=== PATIENT | female | born 1955 | race Hispanic/Latino ===

== ENCOUNTER 2018-04-23 16:23 | Emergency (ER) | payer OTHER ==
--- OUTSIDE RECORDS SUMMARY | 2018-04-23 16:25 | XMS REPORT ---
:1955 Author Organization eClinicalWorks Care Team Providers Name Role Phone Radha Kamala Provider Role Unavailable Allergies, Adverse Reactions, Alerts Substance Reaction Event Type N.K.D.A. Info Not Available Non Drug Allergy Problems Problem Type Condition Code Onset Dates Condition Status Problem Type 2 diabetes E11.9 Active Problem Shoulder pain M25.519 Active Problem Hip pain M25.559 Active Problem Chronic pain syndrome G89.4 Active Problem Skin lesion L98.9 Active Problem Polyarthralgia M25.50 Active Problem Pain in left knee M25.562 Active Problem Leg pain M79.606 Active Problem Elevated BP without diagnosis of R03.0 Active hypertension Problem Uncontrolled type 2 diabetes E11.65 Active mellitus without complication, without long-term current use of insulin Assessment Skin lesion L98.9 Active Assessment Elevated BP without diagnosis of R03.0 Active hypertension Assessment Chronic pain syndrome G89.4 Active Assessment Uncontrolled type 2 diabetes E11.65 Active mellitus without complication, without long-term current use of insulin Assessment Polyarthralgia M25.50 Active Problem Low back pain M54.5 Active Medications Medication Code Code Instructions Start End Status Dosage System Date Date Mobic [facility] 25101303008 7.5 MG Orally Active 1 tablet Once a day as needed BL Blood Glucose NDC 0 subcutaneous April 09, Active As directed; Monitor Kit Test BS once 2017 DISPENSE BG daily MONITOR FORMULARY TO INSURANCE Gabapentin ND 05115376449 100 MG Orally Active 1 capsule Three times a day Glimepiride ND 96879456611 4 MG Orally Active 1 tablet Twice a day Mupirocin ND 20289189533 2 % Externally April 09March Active 1 application Two times a 2017, to affected day 2018 area Lancets ND 97982185649 - subcutaneous April 09, Active as directed; Test BS once 2017 dispense daily lancets formulary to insurance blood glucose test NDC 0 topically April 09Jul Active as directed; strip Test BS once 2018 01, DISPENSE daily 2019 TESTING STRIPS FORMULARY TO INSURANCE Cyclobenzaprine ND 22449865230 5 MG Orally Active 1 tablet as HCl Two times a needed day as needed Indomethacin [facility] 62866932135 50 MG Orally April 09Jul Active 1 capsule as Twice a day 2018 07, needed for 2017 pain; take with food or milk Results No Known Results Summary Purpose eClinicalWorks Submission
--- OUTSIDE RECORDS SUMMARY | 2018-04-23 16:25 | XMS REPORT ---
:1955 Author Organization eClinicalWorks Care Team Providers Name Role Phone Kamala Garcia Provider Role Unavailable Allergies No Known Allergies Problems Problem Type Condition Code Onset Dates Condition Status Problem Type 2 diabetes E11.9 Active Problem Shoulder pain M25.519 Active Problem Hip pain M25.559 Active Problem Low back pain M54.5 Active Problem Chronic pain syndrome G89.4 Active Problem Skin lesion L98.9 Active Problem Polyarthralgia M25.50 Active Problem Pain in left knee M25.562 Active Problem Leg pain M79.606 Active Problem Elevated BP without diagnosis of R03.0 Active hypertension Problem Uncontrolled type 2 diabetes E11.65 Active mellitus without complication, without long-term current use of insulin Medications No Known Medications Results No Known Results Summary Purpose eClinicalWorks Submission
[2018-04-23] MEDS ORDERED: NA CHLORIDE 0.9% 1,000 ML ONE (17:17)
[2018-04-23] MEDS ORDERED: ONDANSETRON 4 MG/2 ML VIAL ONE (17:35)
[2018-04-23] MEDS ORDERED: MORPHINE 4 MG/ML SYR ONE (17:35)
[2018-04-23 17:38] LABS: Absolute Lymphocytes (CBC) 2.6 K/uL (0.7-4.9); Absolute Monocytes 0.4 K/uL (0.1-1.3); Absolute Neutrophil 4.2 K/uL (1.8-8.0); Basophils % 0.4 % (0-1.3); Eosinophils % 1.3 % (0-4.4); Hematocrit 36.6 % (36.0-45.0); Lymphocytes % 35.5 % (15.3-44.8); MCH 29.7 pg (27.0-35.0); MCV 84.4 fL (80-100); MPV 9.5 fL (7.6-11.3); RBC Red Blood Cell Count 4.34 M/uL (3.86-4.86)
[2018-04-23 17:40] LABS: Glucose Level 277 mg/dL (65-120)
[2018-04-23 17:41] LABS: BUN Blood Urea Nitrogen 17 mg/dL (6-20)
[2018-04-23 17:42] LABS: Urine Blood TRACE (NEG); Urine Glucose 2+ (NEG); Urine Protein NEGATIVE (NEG)
[2018-04-23 17:43] LABS: Bicarbonate 25 mEq/L (21-31); Potassium 4.4 mEq/L (3.6-5.0); Sodium Level 134 mEq/L (135-145)
[2018-04-23 18:04] LABS: Urine Bacteria <20 /HPF (<20)
[2018-04-23 18:05] LABS: Urine Culture Reflex Order NOT NEEDED
--- NOTE | 2018-04-23 18:41 | RAD REPORT ---
EXAM DESCRIPTION: CT - Head Brain Wo Cont - 04/23/2018 6:30 pm CLINICAL HISTORY: Headache COMPARISON: None. TECHNIQUE: Computed axial tomography of the head was obtained. IV contrast was not requested. All CT scans are performed using dose optimization technique as appropriate and may include automated exposure control or mA/KV adjustment according to patient size. FINDINGS: An intracranial bleed is not seen . The ventricles are normal in caliber. No extra-axial fluid collection is noted. Mild chronic opacification ethmoid sinus is seen. Fluid within the sinuses/mastoids is not noted IMPRESSION: No acute intracranial abnormality is seen. If patient's symptoms persist MRI of the bra in would be recommended.
--- NOTE | 2018-04-23 20:16 | ER ---
Nurse's Notes [facility] Name: Myriam Bryant Age: 62 yrs Sex: Female : 1955 Arrival Date: 04/23/2018 Time: 16:26 Bed 26 Private MD: None, None Diagnosis: Headache;Elevated blood-pressure reading, without diagnosis of hypertension Presentation: 04/23 16:32 Presenting complaint: Patient states: Headache, bilateral shoulder pain, back pain for aj 3 months. Headache increased in severity when patient woke up from nap just [employer]ACHT [employer]TAIN. Transition of care: patient was not received from another setting of care. Onset of symptoms was January 2018. Care prior to arrival: None. 16:32 Method Of Arrival: Ambulatory aj 16:32 Acuity: VALDEMAR 3 aj 20:32 Risk Assessment: Do you want to hurt yourself or someone else? Patient reports no mb3 desire to harm self or others. Initial Sepsis Screen: Does the patient meet any 2 criteria? No. Patient's initial sepsis screen is negative. Does the patient have a suspected source of infection? No. Patient's initial sepsis screen is negative. Triage Assessment: 16:35 Headache History: The patient has had previous headaches and this one is more severe aj than previous episodes. General: Appears in no apparent distress. uncomfortable, Behavior is cooperative, drowsy. Pain: Complains of pain in face, scalp, left scapular area and right scapular area Pain currently is 10 out of 10 on a pain scale. Also complains of no other associated symptoms. Neuro: Level of Consciousness is awake, alert, obeys commands, Oriented to person, place, time, situation, Appropriate for age. Neuro: Reports headache. Respiratory: Airway is patent Respiratory effort is even, unlabored, Respiratory pattern is regular, symmetrical. Derm: Skin is intact, is healthy with good turgor, Skin is pink, warm \T\ dry. normal. 20:33 Pain: Pain began 2-3 days ago. mb3 Historical: - Allergies: 16:35 No Known Allergies; aj - Home Meds: 16:35 glimepiride 4 mg Oral tab 1 tab once daily [Active]; indomethacin 50 mg Oral cap 1 cap aj 2 times per day [Active]; - PMHx: 16:35 Diabetes - NIDDM; Hyperlipidemia; Arthritis; aj - Immunization history:: Adult Immunizations up to date. - Social history:: Smoking status: Patient/guardian denies using tobacco. - Ebola Screening: : Patient denies travel to an Ebola-affected area in the 21 days before illness onset No symptoms or risks identified at this time. Screenin:45 Abuse screen: Denies threats or abuse. Nutritional screening: No deficits noted. mb3 Tuberculosis screening: No symptoms or risk factors identified. Fall Risk No fall in past 12 months (0 pts). Secondary diagnosis (15 points) impaired mobility, IV access (20 points). Ambulatory Aid- Furniture (30 pts.). Gait- Impaired (20 pts.). Mental Status- Oriented to own ability (0 pts). Total Freitas Fall Scale indicates High Risk Score (45 or more points). Assessment: 17:05 General: Appears distressed, uncomfortable, Behavior is cooperative, anxious, crying. mb3 Pain: Complains of pain in back of neck, left shoulder and right shoulder Pain radiates to top of head, forehead and scalp Pain currently is 10 out of 10 on a pain scale. 17:05 Neuro: Level of Consciousness is awake, alert, obeys commands, Oriented to person, mb3 place, time, situation, Rn Informatics are equal bilaterally Moves all extremities. pain upon movement of shoulders, hips, wrist, and knees, has been told has arthritis. Cardiovascular: No deficits noted. Denies chest pain, Heart tones S1 S2 present Capillary refill < 3 seconds Patient's skin is warm and dry. Respiratory: Airway is patent Respiratory effort is even, unlabored, Respiratory pattern is regular, symmetrical, Breath sounds are clear bilaterally. GI: No deficits noted. No signs and/or symptoms were reported involving the gastrointestinal system. Abdomen is flat, Bowel sounds present X 4 quads. : Urine is blood tinged. EENT: No signs and/or symptoms were reported regarding the EENT system. Musculoskeletal: Reports pain in joints all over. Vital Signs: 16:36 BP 161 / 84; Pulse 98; Resp 20; Temp 98.6; Pulse Ox 99% on R/A; Weight 49.9 kg; Height aj 5 ft. 0 in. (152.40 cm); Pain 10/10; 17:40 BP 157 / 70; Pulse 82; Resp 15; Temp 98.8(O); Pulse Ox 96% on R/A; mh5 20:25 BP 140 / 66; Pulse 75; Resp 16; Pulse Ox 96% on R/A; Pain 2/10; mb3 16:36 Body Mass Index 21.48 (49.90 kg, 152.40 cm) aj ED Course: 16:26 Patient arrived in ED. mr 16:26 None, None is Private Physician. mr 16:34 Triage completed. aj 16:36 Arm band placed on left wrist. Patient placed in waiting room, Patient notified of wait aj time. 16:39 Suhail Villegas, RN is Primary Nurse. mb3 16:40 Patient has correct armband on for positive identification. mobility architect manager on. Pulse mb3 ox on. NIBP on. 16:45 Howard Bae PA is PHCP. cp 16:46 Dereck Vyas MD is Attending Physician. cp 16:50 Inserted saline lock: 20 gauge in right forearm, using aseptic technique. Blood mb3 collected. 17:32 Urine collected: clean catch specimen, cloudy. mh5 17:33 Urine Microscopic Only Sent. mh5 17:39 BMP Sent. mh5 17:39 CBC with Diff Sent. mh5 17:39 Urine Microscopic Only Sent. mh5 18:[address] via stretcher. nj 18:29 CT completed. Patient tolerated procedure well. Patient moved back from CT. nj 18:30 CT Head Brain wo Cont In Process Unspecified. EDMS 20:32 No provider procedures requiring assistance completed. IV discontinued, intact, mb3 bleeding controlled, No redness/swelling at site. Pressure dressing applied. Administered Medications: 17:22 Drug: NS 0.9% 1000 ml Route: IV; Rate: 1 bolus; Site: right antecubital; mb3 20:34 Follow up: Response: No adverse reaction; IV Status: Completed infusion; IV Intake: mb3 1000ml 17:30 Drug: morphine 2 mg Route: IVP; Site: left antecubital; mb3 20:34 Follow up: Response: No adverse reaction mb3 17:30 Drug: Zofran 4 mg Route: IVP; Site: right antecubital; mb3 20:34 Follow up: Response: No adverse reaction mb3 Point of Care Testing: Blood Glucose: 17:38 Blood Glucose: 267 mg/dL; mh5 Ranges: Intake: 20:34 IV: 1000ml; Total: 1000ml. mb3 Outcome: 20:15 Discharge ordered by . cp 20:32 Discharged to home via wheelchair, with family. mb3 20:32 Condition: stable 20:32 Discharge instructions given to patient, family, Instructed on discharge instructions, follow up and referral plans. medication usage, Demonstrated understanding of instructions, follow-up care, medications, Prescriptions given X 2. 20:35 Patient left the ED. mb3 Signatures: Dispatcher [employer] EDVeronika Velazquez RN RN aj Rivera, Maria mr Page, Corey, PA PA cp Jordan, Nathan nj Martinez, Maria [facility] Suhail Villegas RN RN mb3 Corrections: (The following items were deleted from the chart) 16:36 16:32 Presenting complaint: Patient states: Headache, bilateral shoulder pain, back aj pain for 3 months steven
--- NOTE | 2018-04-23 20:16 | EDPHYS ---
Physician Documentation [facility] Name: Myriam Bryant Age: 62 yrs Sex: Female : 1955 Arrival Date: 04/23/2018 Time: 16:26 Bed 26 Private MD: None, None ED Physician Dereck Vyas HPI: 04/23 17:00 This 62 yrs old Female presents to ER via Ambulatory with complaints of cp Headache. 17:00 The patient complains of pain to the top of head and forehead. The patient describes cp the headache as constant. 17:00 Onset: The symptoms/episode began/occurred suddenly, today, started after awakening cp from nap. Associated signs and symptoms: Pertinent positives: upper back and neck pain, multiple joint pain, Pertinent negatives: altered mental status, fever, paresthesias, vision changes. Severity of symptoms: in the emergency department the pain is actually worse, moderately. Headache History: The patient has had previous headaches and this one is more severe than previous episodes. Historical: - Allergies: 16:35 No Known Allergies; aj - Home Meds: 16:35 glimepiride 4 mg Oral tab 1 tab once daily [Active]; indomethacin 50 mg Oral cap 1 cap aj 2 times per day [Active]; - PMHx: 16:35 Diabetes - NIDDM; Hyperlipidemia; Arthritis; aj - Immunization history:: Adult Immunizations up to date. - Social history:: Smoking status: Patient/guardian denies using tobacco. - Ebola Screening: : Patient denies travel to an Ebola-affected area in the 21 days before illness onset No symptoms or risks identified at this time. ROS: 17:07 Constitutional: Negative for body aches, chills, fever, poor PO intake. cp 17:07 Eyes: Negative for injury, pain, redness, and discharge. cp 17:07 ENT: Negative for drainage from ear(s), ear pain, rhinorrhea, sinus congestion, sore throat, difficulty swallowing, difficulty handling secretions. 17:07 Neck: Positive for pain at rest, Negative for injury or acute deformity, bony tenderness. 17:07 Cardiovascular: Negative for chest pain, edema, palpitations. 17:07 Respiratory: Negative for cough, shortness of breath, wheezing. 17:07 Abdomen/GI: Negative for abdominal pain, vomiting, diarrhea, constipation, black/tarry stool, rectal bleeding. 17:07 : Negative for urinary symptoms. 17:07 MS/extremity: Positive for bilateral shoulders, upper back pain, Negative for injury or acute deformity. 17:07 Skin: Negative for cellulitis, rash. 17:07 Neuro: Positive for headache, Negative for altered mental status, dizziness, syncope, near syncope. 17:07 All other systems are negative. Exam: 17:13 Constitutional: The patient appears in no acute distress, alert, awake, cp non-diaphoretic, non-toxic, well developed, well nourished, anxious, tearful 17:13 Head/Face: Normocephalic, atraumatic. Eyes: Pupils equal round and reactive to light, cp extra-ocular motions intact. Lids and lashes normal. Conjunctiva and sclera are non-icteric and not injected. Cornea within normal limits. Periorbital areas with no swelling, redness, or edema. ENT: Nares patent. No nasal discharge, no septal abnormalities noted. Tympanic membranes are normal and external auditory canals are clear. Oropharynx with no redness, swelling, or masses, exudates, or evidence of obstruction, uvula midline. Mucous membranes moist. 17:13 Neck: C-spine: vertebral tenderness, is not appreciated, crepitus, is not appreciated, ROM/movement: limited range of motion, is not appreciated, Meningeal signs: are not present, nuchal rigidity, is not appreciated. 17:13 Chest/axilla: Inspection: normal, Palpation: is normal, no crepitus, no tenderness. 17:13 Cardiovascular: Rate: normal, Rhythm: regular, Heart sounds: murmur, not appreciated, rub, not appreciated, gallop, not appreciated, Edema: is not appreciated, JVD: is not appreciated. 17:13 Respiratory: the patient does not display signs of respiratory distress, Respirations: normal, no use of accessory muscles, no retractions, no splinting, no tachypnea, labored breathing, is not present, Breath sounds: are clear throughout, no decreased breath sounds, no stridor, no wheezing. 17:13 Abdomen/GI: Inspection: abdomen appears normal, Bowel sounds: active, all quadrants, Palpation: abdomen is soft and non-tender, in all quadrants, rebound tenderness, is not appreciated, voluntary guarding, is not appreciated, involuntary guarding, is not appreciated. 17:13 Back: ROM is normal, CVA tenderness, is absent, vertebral tenderness, is not appreciated. 17:13 Musculoskeletal/extremity: Exam is negative for decreased range of motion, edema, injury. 17:13 Skin: cellulitis, is not appreciated, no rash present. 17:13 Neuro: Orientation: to person, place \T\ time. Mentation: lucid, able to follow commands, Cerebellar function: Romberg testing is negative, normal finger to nose testing, heel to swann testing is normal, Motor: moves all fours, strength is normal, Sensation: no obvious gross deficits. Vital Signs: 16:36 BP 161 / 84; Pulse 98; Resp 20; Temp 98.6; Pulse Ox 99% on R/A; Weight 49.9 kg; Height aj 5 ft. 0 in. (152.40 cm); Pain 10/10; 17:40 BP 157 / 70; Pulse 82; Resp 15; Temp 98.8(O); Pulse Ox 96% on R/A; mh5 20:25 BP 140 / 66; Pulse 75; Resp 16; Pulse Ox 96% on R/A; Pain 2/10; mb3 16:36 Body Mass Index 21.48 (49.90 kg, 152.40 cm) aj MDM: 16:46 Patient medically screened. cp 19:20 Refusal of service: The patient/guardian displays adequate decision making capability cp and despite a detailed discussion of alternatives, benefits, risks, and consequences refuses: Lumbar Puncture procedure. 20:15 Data reviewed: vital signs, nurses notes, lab test result(s), radiologic studies, CT cp scan, and as a result, I will discharge patient. 04/23 16:47 Order name: Urine Microscopic Only; Complete Time: 18:45 04/23 20:13 Interpretation: Normal except: URBC 5-10. 04/23 17:05 Order name: CBC with Diff; Complete Time: 18:45 04/23 17:05 Order name: CT Head Brain wo Cont; Complete Time: 18:45 04/23 18:45 Interpretation: Report reviewed. 04/23 17:05 Order name: BMP; Complete Time: 18:45 04/23 20:14 Interpretation: Normal except: GLUC 277; NA 134; CL 99. 04/23 17:41 Order name: Urine Dipstick--Ancillary (enter results) bd 04/23 17:41 Order name: Urine Dipstick-Ancillary; Complete Time: 18:45 EDMS 04/23 20:13 Interpretation: Normal except: UGLUC 2+; UBLD TRACE. cp 04/23 16:46 Order name: Accucheck Blood Glucose; Complete Time: 17:39 cp 04/23 16:47 Order name: Urine Dipstick-Ancillary (obtain specimen); Complete Time: 17:33 cp Administered Medications: 17:22 Drug: NS 0.9% 1000 ml Route: IV; Rate: 1 bolus; Site: right antecubital; mb3 20:34 Follow up: Response: No adverse reaction; IV Status: Completed infusion; IV Intake: mb3 1000ml 17:30 Drug: morphine 2 mg Route: IVP; Site: left antecubital; mb3 20:34 Follow up: Response: No adverse reaction mb3 17:30 Drug: Zofran 4 mg Route: IVP; Site: right antecubital; mb3 20:34 Follow up: Response: No adverse reaction mb3 Point of Care Testing: Blood Glucose: 17:38 Blood Glucose: 267 mg/dL; mh5 Ranges: Critical Glucose Levels:Adult <50 mg/dl or >400 mg/dl <40 mg/dl or >180 mg/dl Disposition: 04/24 10:44 Co-signature as Attending Physician, Dereck Vyas MD I agree with the assessment and kdr plan of care. Disposition: 04/23/18 20:15 Discharged to Home. Impression: Headache, Elevated blood-pressure reading, without diagnosis of hypertension. - Condition is Stable. - Discharge Instructions: General Headache Without Cause, How to Take Your Blood Pressure, Odvd-jb-Iins. - Prescriptions for Fiorinal 50- 325-40 mg Oral Capsule - take 1 capsule by ORAL route every 4 hours As needed - not to exceed 6 capsules per day; 20 capsule. Zofran 4 mg Oral Tablet - take 1 tablet by ORAL route every 12 hours As needed; 20 tablet. - Medication Reconciliation Form, Thank You Letter, Antibiotic Education, Prescription Opioid Use form. - Follow up: Private Physician; When: 1 - 2 days; Reason: Recheck today's complaints. - Problem is new. - Symptoms have improved. Signatures: Dispatcher [employer] EDVeronika Velazquez, RN RN Dereck Rai MD MD kdr Page, Corey, PA PA Suhail Fish RN RN mb3 Corrections: (The following items were deleted from the chart) 04/23 20:14 20:14 Normal except: GLUC 277; NA 134. cp cp 20:35 20:15 04/23/2018 20:15 Discharged to Home. Impression: Headache; Elevated mb3 blood-pressure reading, without diagnosis of hypertension. Condition is Stable. Forms are Medication Reconciliation Form, Thank You Letter, Antibiotic Education, Prescription Opioid Use. Follow up: Private Physician; When: 1 - 2 days; Reason: Recheck today's complaints. Problem is new. Symptoms have improved. cp
[2018-04-23 20:40] VITALS: TEMP 98.8; O2SAT 96
[2018-04-23 20:41] VITALS: BP 140/66
== END 2018-04-23 20:35 | disposition home or self-care (01) ==
LOC: ER 16:23
DX: I10 Essential (primary) hypertension (principal); E11.9 Type 2 diabetes mellitus without complications; E78.5 Hyperlipidemia, unspecified
CPT/HCPCS: 36415; 70450; 80048; 81003; 81015; 82962; 85025; 99285; J2405; J7030

== ENCOUNTER 2019-04-24 18:04 | Emergency (ER) | payer OTHER, SELFPAY ==
--- OUTSIDE RECORDS SUMMARY | 2019-04-24 18:07 | XMS REPORT ---
:1955 [facility] Address [address] [place] [address] [place] [id number] Care Team Providers Name Role Phone Unavailable Unavailable Unavailable Problems This patient has no known problems. Allergies, Adverse Reactions, Alerts This patient has no known allergies or adverse reactions. Medications This patient has no known medications.
--- OUTSIDE RECORDS SUMMARY | 2019-04-24 18:07 | XMS REPORT ---
:1955 Author Organization eClinicalWorks Care Team Providers Name Role Phone Kamala Garcia Provider Role Unavailable Allergies, Adverse Reactions, Alerts [...] without long-term current use of insulin Assessment Elevated BP without diagnosis of R03.0 Active hypertension Assessment Uncontrolled type 2 diabetes E11.65 Active mellitus without complication, without long-term current use of insulin Assessment Counseling and coordination of care Z71.89 Active Assessment Polyarthralgia M25.50 Active Problem Low back pain M54.5 Active Medications Medication Code Code Instructions Start End Status Dosage System Date Date Mobic [facility] 15779129536 7.5 MG Orally Active 1 tablet Once a day as needed Metformin HCl ND 16444950052 500 MG Orally Jul 09, Active 1 tablet Twice daily 2017 with a meal (for diabetes) Gabapentin ND 40967054736 100 MG Orally Active 1 capsule Three times a day Cyclobenzaprine ND 06630606132 5 MG Orally Two Active 1 tablet as HCl times a day as needed needed BL Blood Glucose ND 0 subcutaneous April 09, Active As Monitor Kit Test BS once 2017 directed; daily DISPENSE BG MONITOR FORMULARY TO INSURANCE blood glucose test NDC 0 topically Test April 09Jul Active as strip BS once daily 2018 01, directed; 2019 DISPENSE TESTING STRIPS FORMULARY TO INSURANCE Lancets [facility] 11042336357 - subcutaneous April 09, Active as Test BS once 2017 directed; daily dispense lancets formulary to insurance Glimepiride ND 99653327350 4 MG Orally Active 1 tablet Twice a day Results No Known Results Summary Purpose eClinicalWorks Submission
--- OUTSIDE RECORDS SUMMARY | 2019-04-24 18:07 | XMS REPORT ---
:1955 Author Organization eClinicalWorks Care Team Providers Name Role Phone Kamala Garcia Provider Role Unavailable Allergies No Known Allergies Problems Problem Type Condition Code Onset Dates Condition Status Problem Polyarthralgia M25.50 Active Problem Uncontrolled type 2 diabetes E11.65 Active mellitus without complication, without long-term current use of insulin Problem Elevated BP without diagnosis of R03.0 Active hypertension Problem Vitamin D deficiency E55.9 Active Problem Abnormal liver function K76.89 Active Problem Dizziness R42 Active Problem Nausea and vomiting, intractability R11.2 Active of vomiting not specified, unspecified vomiting type Problem Abdominal pain, unspecified R10.9 Active abdominal location Problem Anemia, unspecified type D64.9 Active Problem Nonintractable headache, R51 Active unspecified chronicity pattern, unspecified headache type Problem Low back pain M54.5 Active Problem Type 2 diabetes E11.9 Active Problem Leg pain M79.606 Active Problem Pain in left knee M25.562 Active Problem Hip pain M25.559 Active Problem Skin lesion L98.9 Active Problem Shoulder pain M25.519 Active Problem Chronic pain syndrome G89.4 Active Medications Medication Code Code Instructions Start End Status Dosage System Date Date Pioglitazone HCl [facility] 95029745906 15 MG Orally Aug 07, Active 1 tablet Once a day 2017 Results No Known Results Summary Purpose eClinicalWorks Submission
--- OUTSIDE RECORDS SUMMARY | 2019-04-24 18:07 | XMS REPORT ---
[...] Status Dosage System Date Date Pioglitazone HCl [facility] 16348985020 15 MG Orally Aug 07, Active 1 tablet Once a day 2017 Results No Known Results Summary Purpose eClinicalWorks Submission
--- OUTSIDE RECORDS SUMMARY | 2019-04-24 18:07 | XMS REPORT ---
[...] End Status Dosage System Date Date Mobic [facility] 14791573186 7.5 MG Orally Active 1 tablet Once a day as needed BL Blood Glucose NDC 0 subcutaneous April 09, Active As directed; Monitor Kit Test BS once 2017 DISPENSE BG daily MONITOR FORMULARY TO INSURANCE Gabapentin ND 97450562962 100 MG Orally Active 1 capsule Three times a day Glimepiride ND 70113086025 4 MG Orally Active 1 tablet Twice a day Mupirocin ND 99708934194 2 % Externally April 09March Active 1 application Two times a 2017, to affected day 2018 area Lancets ND 01340703604 - subcutaneous April 09, Active as directed; Test BS once 2017 dispense daily lancets formulary to insurance blood glucose test NDC 0 topically April 09Jul Active as directed; strip Test BS once 2018 01, DISPENSE daily 2019 TESTING STRIPS FORMULARY TO INSURANCE Cyclobenzaprine ND 31662935333 5 MG Orally Active 1 tablet as HCl Two times a needed day as needed Indomethacin [facility] 69116382423 50 MG Orally April 09Jul Active 1 capsule as Twice a day 2018 07, needed for 2017 pain; take with food or milk Results No Known Results Summary Purpose eClinicalWorks Submission
--- OUTSIDE RECORDS SUMMARY | 2019-04-24 18:07 | XMS REPORT ---
:1955 Author Organization eClinicalWorks Care Team Providers Name Role Phone Kamala Garcia Provider Role Unavailable Allergies, Adverse Reactions, Alerts Substance Reaction Event Type N.K.D.A. Info Not Available Non Drug Allergy Problems Problem Type Condition Code Onset Dates Condition Status Assessment Vitamin D deficiency E55.9 Active Assessment Anemia, unspecified type D64.9 Active Assessment Abnormal liver function K76.89 Active Assessment Uncontrolled type 2 diabetes E11.65 Active mellitus without complication, without long-term current use of insulin Problem Elevated BP without diagnosis of R03.0 Active hypertension Assessment Bloating R14.0 Active Problem Uncontrolled type 2 diabetes E11.65 Active mellitus without complication, without long-term current use of insulin Assessment Gastroesophageal reflux disease, K21.9 Active esophagitis presence not specified Problem Abdominal pain, unspecified R10.9 Active abdominal location Problem Abnormal liver function K76.89 Active Problem Nausea and vomiting, intractability R11.2 Active of vomiting not specified, unspecified vomiting type Problem Bloating R14.0 Active Problem Gastroesophageal reflux disease, K21.9 Active esophagitis presence not specified Problem Low back pain M54.5 Active Problem Essential hypertension I10 Active Assessment Essential hypertension I10 Active Problem Dizziness R42 Active Problem Vitamin D deficiency E55.9 Active Problem Anemia, unspecified type D64.9 Active Problem Nonintractable headache, R51 Active unspecified chronicity pattern, unspecified headache type Problem Shoulder pain M25.519 Active Problem Leg pain M79.606 Active Problem Type 2 diabetes E11.9 Active Problem Hip pain M25.559 Active Problem Chronic pain syndrome G89.4 Active Problem Polyarthralgia M25.50 Active Problem Pain in left knee M25.562 Active Problem Skin lesion L98.9 Active Medications Medication Code Code Instructions Start End Status Dosage System Date Date Glimepiride ND 00822519454 4 MG Orally Active 1 tablet Twice a day Gabapentin ND 48650108858 100 MG Orally Active 1 capsule Three times a day Lancets [facility] 82646296374 - subcutaneous April 09, Active as Test BS once 2017 directed; daily dispense lancets formulary to insurance blood glucose test NDC 0 topically Test April 09Jul Active as strip BS once daily 2017 directed; 2018 DISPENSE TESTING STRIPS FORMULARY TO INSURANCE Cyclobenzaprine [facility] 85162671782 5 MG Orally Two Active 1 tablet as HCl times a day as needed needed Pioglitazone HCl ND 90382747524 30 MG Orally Sept Active 1 tablet Once a day 2017 BL Blood Glucose NDC 0 subcutaneous April 09, Active As Monitor Kit Test BS once 2017 directed; daily DISPENSE BG MONITOR FORMULARY TO INSURANCE Mobic [facility] 27927995036 7.5 MG Orally Active 1 tablet Once a day as needed Januvia ND 15394487390 50 MG Orally Sept Active 1 tablet Once daily [address] [facility] 35989731044 4 MG Orally Sept Active 1 tablet as Every 6-8 hours , needed for 2017 nausea/vomi ting Metformin HCl [facility] 22597417029 500 MG Orally Active 1 tablet Twice daily with a meal (for diabetes) Results No Known Results Summary Purpose eClinicalWorks Submission
--- OUTSIDE RECORDS SUMMARY | 2019-04-24 18:07 | XMS REPORT ---
:1955 Author Organization eClinicalWorks Care Team Providers Name Role Phone Kamala Garcia Provider Role Unavailable Allergies, Adverse Reactions, Alerts Substance Reaction Event Type N.K.D.A. Info Not Available Non Drug Allergy Problems Problem Type Condition Code Onset Dates Condition Status Assessment Dizziness R42 Active Assessment Nonintractable headache, R51 Active unspecified chronicity pattern, unspecified headache type Problem Skin lesion L98.9 Active Assessment Nausea and vomiting, intractability R11.2 Active of vomiting not specified, unspecified vomiting type Problem Chronic pain syndrome G89.4 Active Assessment Abdominal pain, unspecified R10.9 Active abdominal location Problem Polyarthralgia M25.50 Active Problem Uncontrolled type 2 diabetes E11.65 Active mellitus without complication, without long-term current use of insulin Problem Elevated BP without diagnosis of R03.0 Active hypertension Problem Vitamin D deficiency E55.9 Active Problem Abnormal liver function K76.89 Active Assessment Abnormal liver function K76.89 Active Assessment Anemia, unspecified type D64.9 Active Problem Dizziness R42 Active Assessment Vitamin D deficiency E55.9 Active Problem Nausea and vomiting, intractability R11.2 Active of vomiting not specified, unspecified vomiting type Problem Abdominal pain, unspecified R10.9 Active abdominal location Problem Anemia, unspecified type D64.9 Active Problem Nonintractable headache, R51 Active unspecified chronicity pattern, unspecified headache type Problem Low back pain M54.5 Active Problem Type 2 diabetes E11.9 Active Assessment Uncontrolled type 2 diabetes E11.65 Active mellitus without complication, without long-term current use of insulin Problem Leg pain M79.606 Active Problem Pain in left knee M25.562 Active Problem Hip pain M25.559 Active Problem Shoulder pain M25.519 Active Medications Medication Code Code Instructions Start End Status Dosage System Date Date Gabapentin ND 61900899504 100 MG Orally Active 1 capsule Three times a day BL Blood Glucose NDC 0 subcutaneous April 09, Active As Monitor Kit Test BS once 2018 directed; daily DISPENSE BG MONITOR FORMULARY TO INSURANCE blood glucose test NDC 0 topically Test April 09Jul Active as strip BS once daily 2018 01, directed; 2018 DISPENSE TESTING STRIPS FORMULARY TO INSURANCE Januvia [facility] 70276876121 50 MG Orally Sept Active 1 tablet Once daily 2017 Dicyclomine HCl [facility] 22975237907 20 mg Orally Up Aug Active 1 tablet as to four times , , needed for daily 2017 2017 abdominal pain Cyclobenzaprine [facility] 27377508605 5 MG Orally Two Active 1 tablet as HCl times a day as needed needed Ondansetron HCl [facility] 09769291578 4 MG Orally Sept Active 1 tablet as Every 6-8 hours , needed for 2017 nausea/vomi ting Metformin HCl [facility] 14206553115 500 MG Orally Jul 09, Active 1 tablet Twice daily 2017 with a meal (for diabetes) Glimepiride [facility] 13755561833 4 MG Orally Active 1 tablet Twice a day Lancets [facility] 95067274960 - subcutaneous April 09, Active as Test BS once 2017 directed; daily dispense lancets formulary to insurance Vitamin D [facility] 15051816606 73599 UNIT Aug Dec Active 1 capsule (Ergocalciferol) Orally Once 06, 05, weekly 2017 2017 Mobic [facility] 54121172789 7.5 MG Orally Active 1 tablet Once a day as needed Results Name Result Date Reference Range Unit Abnormality Flag GLUCOSE FINGER ----Result 262 [id number] Summary Purpose eClinicalWorks Submission
[2019-04-24] MEDS ORDERED: BENZONATATE 100 MG CAP PO ONE (20:30)
[2019-04-24] MEDS ORDERED: IBUPROFEN 400 MG TAB ONE (20:31)
--- NOTE | 2019-04-24 20:51 | RAD REPORT ---
EXAM DESCRIPTION: RAD - Chest Pa And Lat (2 Views) - 04/24/2019 8:42 pm CLINICAL HISTORY: COUGH Chest pain. COMPARISON: Chest Single View dated 11/27/2016; Chest Single View dated 09/26/2016; Chest Single Vie w dated 09/24/2016; CHEST PA AND LAT 2 VIEW dated 11/28/2008 FINDINGS: The lungs are clear. The heart is normal in size. No displaced fractures. Cholecystectomy clips. IMPRESSION: No acute or concerning finding suspected.
--- NOTE | 2019-04-24 21:25 | EDPHYS ---
Physician Documentation [facility] Name: Myriam Bryant Age: 63 yrs Sex: Female : 1955 Arrival Date: 04/24/2019 Time: 18:09 Bed 23 Private MD: ED Physician Kishan Alford HPI: 04/24 20:10 This 63 yrs old Female presents to ER via Ambulatory with complaints of Cough. cp 20:10 The patient or guardian reports cough, that is intermittent. Onset: The cp symptoms/episode began/occurred 1 week(s) ago. Severity of symptoms: in the emergency department the symptoms are unchanged, despite home interventions. Associated signs and symptoms: Pertinent positives: fever, sore throat, Pertinent negatives: chest pain, diarrhea, vomiting. Historical: - Allergies: 18:11 No Known Allergies; la1 - Home Meds: 20:20 glimepiride 4 mg Oral tab 1 tab once daily [Active]; indomethacin 50 mg Oral cap 1 cap mg2 2 times per day [Active]; metformin 1,000 mg Oral tab 1 tab 2 times per day [Active]; - PMHx: 18:11 Arthritis; Diabetes - NIDDM; Hyperlipidemia; la1 - Immunization history:: Adult Immunizations up to date. - Social history:: Smoking status: Patient/guardian denies using tobacco. - Ebola Screening: : No symptoms or risks identified at this time. ROS: 20:10 Constitutional: Negative for body aches, chills, fever, poor PO intake. cp 20:10 Eyes: Negative for injury, pain, redness, and discharge. cp 20:10 ENT: Positive for sore throat, Negative for drainage from ear(s), ear pain, difficulty swallowing, difficulty handling secretions. 20:10 Respiratory: Positive for cough, Negative for wheezing. 20:10 Abdomen/GI: Negative for abdominal pain, nausea, vomiting, and diarrhea. 20:10 Neuro: Positive for headache, Negative for altered mental status, weakness. 20:10 All other systems are negative. Exam: 20:15 Constitutional: The patient appears in no acute distress, alert, awake, non-toxic, well cp developed, well nourished. 20:15 Head/Face: Normocephalic, atraumatic. cp 20:15 Eyes: Periorbital structures: appear normal, Conjunctiva: normal, no exudate, no injection, Lids and lashes: appear normal, bilaterally. 20:15 ENT: External ear(s): are unremarkable, Ear canal(s): are normal, clear, TM's: bulging, is not appreciated, bilaterally, dullness, bilaterally, erythema, is not appreciated, bilaterally, Nose: is normal, Mouth: Lips: moist, Oral mucosa: pink and intact, moist, Posterior pharynx: is normal, airway is patent, no erythema, no exudate. 20:15 Neck: ROM/movement: is normal, is supple, without pain, no range of motions limitations, no meningismus, no nuchal rigidity, Lymph nodes: no appreciated lymphadenopathy. 20:15 Chest/axilla: Inspection: normal, Palpation: is normal, no crepitus, no tenderness. 20:15 Cardiovascular: Rate: normal, Rhythm: regular. 20:15 Respiratory: the patient does not display signs of respiratory distress, Respirations: normal, no use of accessory muscles, no retractions, no splinting, no tachypnea, labored breathing, is not present, Breath sounds: are clear throughout, no decreased breath sounds, no stridor, no wheezing. 20:15 Abdomen/GI: Exam negative for discomfort, distension, guarding, Inspection: abdomen appears normal. 20:15 Skin: no rash present. Vital Signs: 18:11 BP 190 / 78; Pulse 88; Resp 18; Temp 99.4; Pulse Ox 98% on R/A; Height 5 ft. 0 in. la1 (152.40 cm); 19:57 BP 142 / 65; Pulse 73; Resp 18; Temp 98.9; Pulse Ox 98% on R/A; mg2 21:21 BP 139 / 62; Pulse 68; Resp 18; Temp 99; Pulse Ox 98% on R/A; mg2 MDM: 20:01 Patient medically screened. cp 21:25 Data reviewed: vital signs, nurses notes, lab test result(s), radiologic studies, plain cp films. 21:25 Differential Diagnosis: Bronchitis Influenza Otitis Media Viral Syndrome Pneumonia. cp Test interpretation: by ED physician or midlevel provider: chest xray negative for infiltrates. Counseling: I had a detailed discussion with the patient and/or guardian regarding: the historical points, exam findings, and any diagnostic results supporting the discharge/admit diagnosis, lab results, radiology results, to return to the emergency department if symptoms worsen or persist or if there are any questions or concerns that arise at home. 04/24 19:57 Order name: Flu; Complete Time: : mg2 04/24 20:05 Order name: Strep; Complete Time: 21: mg2 04/24 20:08 Order name: XRAY Chest Pa And Lat (2 Views); Complete Time: 21: cp 04/24 21:26 Interpretation: Report reviewed. cp 04/24 20:39 Order name: Throat Culture EDMN Administered Medications: 20:17 Drug: Tessalon Perle 200 mg Route: PO; mg2 21:20 Follow up: Response: No adverse reaction; Marked relief of symptoms mg2 20:18 Drug: Ibuprofen 800 mg Route: PO; mg2 21:21 Follow up: Response: No adverse reaction; Marked relief of symptoms mg2 Disposition: 04/24/19 21:25 Discharged to Home. Impression: Acute upper respiratory infection, unspecified. - Condition is Stable. - Discharge Instructions: Upper Respiratory Infection, Adult. - Prescriptions for Tessalon Perles 100 mg Oral Capsule - take 2 capsule by ORAL route every 8 hours As needed; 20 capsule. Ibuprofen 800 mg Oral Tablet - take 1 tablet by ORAL route every 8 hours As needed take with food; 30 tablet. - Medication Reconciliation Form, Thank You Letter, Antibiotic Education, Prescription Opioid Use form. - Follow up: Private Physician; When: 2 - 3 days; Reason: Worsening of condition. - Problem is new. - Symptoms have improved. Signatures: Dispatcher [employer] EDMN Bennie Kaur RN RN la1 Howard Bae PA PA cp Matt Chun RN RN mg2 Corrections: (The following items were deleted from the chart) 21:40 21:25 04/24/2019 21:25 Discharged to Home. Impression: Acute upper respiratory mg2 infection, unspecified. Condition is Stable. Forms are Medication Reconciliation Form, Thank You Letter, Antibiotic Education, Prescription Opioid Use. Follow up: Private Physician; When: 2 - 3 days; Reason: Worsening of condition. Problem is new. Symptoms have improved. cp
--- NOTE | 2019-04-24 21:25 | ER ---
Nurse's Notes [facility] Name: Myriam Bryant Age: 63 yrs Sex: Female : 1955 Arrival Date: 04/24/2019 Time: 18:09 Bed 23 Private MD: Diagnosis: Acute upper respiratory infection, unspecified Presentation: 04/24 18:09 Presenting complaint: Patient states: I have had a bad cough for over one week and la1 subjective fever. Transition of care: patient was not received from another setting of care. Onset of symptoms was April 24, 2019. Risk Assessment: Do you want to hurt yourself or someone else? Patient reports no desire to harm self or others. Initial Sepsis Screen: Does the patient meet any 2 criteria? No. Patient's initial sepsis screen is negative. Does the patient have a suspected source of infection? No. Patient's initial sepsis screen is negative. Care prior to arrival: None. 18:09 Method Of Arrival: Ambulatory la1 18:09 Acuity: VALDEMAR 3 la1 Historical: - Allergies: 18:11 No Known Allergies; la1 - Home Meds: 20:20 glimepiride 4 mg Oral tab 1 tab once daily [Active]; indomethacin 50 mg Oral cap 1 cap mg2 2 times per day [Active]; metformin 1,000 mg Oral tab 1 tab 2 times per day [Active]; - PMHx: 18:11 Arthritis; Diabetes - NIDDM; Hyperlipidemia; la1 - Immunization history:: Adult Immunizations up to date. - Social history:: Smoking status: Patient/guardian denies using tobacco. - Ebola Screening: : No symptoms or risks identified at this time. Screenin:19 Abuse screen: Denies threats or abuse. Denies injuries from another. Nutritional mg2 screening: No deficits noted. Tuberculosis screening: No symptoms or risk factors identified. Fall Risk None identified. Assessment: 20:18 General: Appears in no apparent distress. comfortable, Behavior is calm, cooperative. mg2 Pain: Denies pain. Neuro: Level of Consciousness is awake, alert, obeys commands, Oriented to person, place, time, situation. Cardiovascular: Capillary refill < 3 seconds Patient's skin is warm and dry. Respiratory: Airway is patent Respiratory effort is even, unlabored, Respiratory pattern is regular, symmetrical. Respiratory: Reports cough that is non-productive. GI: No signs and/or symptoms were reported involving the gastrointestinal system. : No signs and/or symptoms were reported regarding the genitourinary system. EENT: Throat is reddened. Derm: Skin is intact, is healthy with good turgor, Skin is pink, warm \T\ dry. normal. Musculoskeletal: Circulation, motion, and sensation intact. Capillary refill < 3 seconds. 21:58 Reassessment: Patient states feeling better. Patient states symptoms have improved. mg2 Vital Signs: 18:11 BP 190 / 78; Pulse 88; Resp 18; Temp 99.4; Pulse Ox 98% on R/A; Height 5 ft. 0 in. la1 (152.40 cm); 19:57 BP 142 / 65; Pulse 73; Resp 18; Temp 98.9; Pulse Ox 98% on R/A; mg2 21:21 BP 139 / 62; Pulse 68; Resp 18; Temp 99; Pulse Ox 98% on R/A; mg2 ED Course: 18:09 Patient arrived in ED. la1 18:10 Triage completed. la1 18:11 Arm band placed on left wrist. la1 19:01 Matt Chun, KASH is Primary Nurse. mg2 20:01 Howard Bae PA is PHCP. cp 20:01 Kishan Alford MD is Attending Physician. cp 20:20 Patient has correct armband on for positive identification. Door closed. Head of bed mg2 elevated. 20:20 No provider procedures requiring assistance completed. Patient did not have IV access mg2 during this emergency room visit. 20:42 XRAY Chest Pa And Lat (2 Views) In Process Unspecified. EDMS Administered Medications: 20:17 Drug: Tessalon Perle 200 mg Route: PO; mg2 21:20 Follow up: Response: No adverse reaction; Marked relief of symptoms mg2 20:18 Drug: Ibuprofen 800 mg Route: PO; mg2 21:21 Follow up: Response: No adverse reaction; Marked relief of symptoms mg2 Outcome: 21:25 Discharge ordered by . cp 21:40 Patient left the ED. mg2 21:58 Discharged to home ambulatory, with family. mg2 21:58 Condition: good 21:58 Discharge instructions given to patient, family, Instructed on discharge instructions, follow up and referral plans. medication usage, Demonstrated understanding of instructions, follow-up care, medications, Prescriptions given X 2. Signatures: Dispatcher [employer] EDBennie Perkins RN RN la1 Howard Bae PA PA cp [place], Michele RN RN mg2 Corrections: (The following items were deleted from the chart) 21:58 21:21 Pulse 68bpm; Resp 18bpm; Pulse Ox 98% RA; Temp 99F; mg2 mg2
[2019-04-24 21:52] VITALS: O2SAT 98
[2019-04-24 21:53] VITALS: BP 142/65
[2019-04-24 21:54] VITALS: TEMP 99
== END 2019-04-24 21:40 | disposition home or self-care (01) ==
LOC: ER 18:04
DX: J06.9 Acute upper respiratory infection, unspecified (principal); E11.9 Type 2 diabetes mellitus without complications; E78.5 Hyperlipidemia, unspecified; Z79.84 Long term (current) use of oral hypoglycemic drugs
CPT/HCPCS: 71046; 87070; 87081; 87804; 99283

== ENCOUNTER 2019-05-12 21:35 | Inpatient (IN) | payer SELFPAY ==
--- OUTSIDE RECORDS SUMMARY | 2019-05-12 21:38 | XMS REPORT ---
[...] Status Dosage System Date Date Pioglitazone HCl [facility] 66547900229 15 MG Orally Aug 07, Active 1 tablet Once a day 2017 Results No Known Results Summary Purpose eClinicalWorks Submission
--- OUTSIDE RECORDS SUMMARY | 2019-05-12 21:38 | XMS REPORT ---
[...] End Status Dosage System Date Date Mobic [facility] 88377660500 7.5 MG Orally Active 1 tablet Once a day as needed BL Blood Glucose NDC 0 subcutaneous April 09, Active As directed; Monitor Kit Test BS once 2017 DISPENSE BG daily MONITOR FORMULARY TO INSURANCE Gabapentin ND 78374201788 100 MG Orally Active 1 capsule Three times a day Glimepiride ND 75233476592 4 MG Orally Active 1 tablet Twice a day Mupirocin ND 58919776137 2 % Externally April 09March Active 1 application Two times a 2017, to affected day 2018 area Lancets ND 91537468224 - subcutaneous April 09, Active as directed; Test BS once 2017 dispense daily lancets formulary to insurance blood glucose test NDC 0 topically April 09Jul Active as directed; strip Test BS once 2018 01, DISPENSE daily 2019 TESTING STRIPS FORMULARY TO INSURANCE Cyclobenzaprine ND 14336028774 5 MG Orally Active 1 tablet as HCl Two times a needed day as needed Indomethacin [facility] 33530581111 50 MG Orally April 09Jul Active 1 capsule as Twice a day 2018 07, needed for 2017 pain; take with food or milk Results No Known Results Summary Purpose eClinicalWorks Submission
--- OUTSIDE RECORDS SUMMARY | 2019-05-12 21:38 | XMS REPORT ---
:1955 [facility] [address] [place] [address] Dr. Mckenzie [address] [place] [id number] Care Team Providers Name Role Phone Unavailable Unavailable Unavailable Problems This patient has no known problems. Allergies, Adverse Reactions, Alerts This patient has no known allergies or adverse reactions. Medications This patient has no known medications.
--- OUTSIDE RECORDS SUMMARY | 2019-05-12 21:38 | XMS REPORT ---
[...] Status Dosage System Date Date Gabapentin ND 71765911977 100 MG Orally Active 1 capsule Three times a day BL Blood Glucose NDC 0 subcutaneous April 09, Active As Monitor Kit Test BS once 2018 directed; daily DISPENSE BG MONITOR FORMULARY TO INSURANCE blood glucose test NDC 0 topically Test April 09Jul Active as strip BS once daily 2018 01, directed; 2018 DISPENSE TESTING STRIPS FORMULARY TO INSURANCE Januvia [facility] 03813400017 50 MG Orally Sept Active 1 tablet Once daily 2017 Dicyclomine HCl [facility] 26083194742 20 mg Orally Up Aug Active 1 tablet as to four times , , needed for daily 2017 2017 abdominal pain Cyclobenzaprine [facility] 46913154771 5 MG Orally Two Active 1 tablet as HCl times a day as needed needed Ondansetron HCl [facility] 06773633534 4 MG Orally Sept Active 1 tablet as Every 6-8 hours , needed for 2017 nausea/vomi ting Metformin HCl [facility] 33964800746 500 MG Orally Jul 09, Active 1 tablet Twice daily 2017 with a meal (for diabetes) Glimepiride [facility] 00545163376 4 MG Orally Active 1 tablet Twice a day Lancets [facility] 67711041474 - subcutaneous April 09, Active as Test BS once 2017 directed; daily dispense lancets formulary to insurance Vitamin D [facility] 50874256045 85713 UNIT Aug Dec Active 1 capsule (Ergocalciferol) Orally Once 06, 05, weekly 2017 2017 Mobic [facility] 03373340960 7.5 MG Orally Active 1 tablet Once a day as needed Results Name Result Date Reference Range Unit Abnormality Flag GLUCOSE FINGER ----Result 262 [id number] Summary Purpose eClinicalWorks Submission
--- OUTSIDE RECORDS SUMMARY | 2019-05-12 21:38 | XMS REPORT ---
[...] Status Dosage System Date Date Mobic [facility] 71631207804 7.5 MG Orally Active 1 tablet Once a day as needed Metformin HCl ND 15796574904 500 MG Orally Jul 09, Active 1 tablet Twice daily 2017 with a meal (for diabetes) Gabapentin ND 34808841053 100 MG Orally Active 1 capsule Three times a day Cyclobenzaprine ND 45212542393 5 MG Orally Two Active 1 tablet [...] DISPENSE TESTING STRIPS FORMULARY TO INSURANCE Lancets [facility] 30927709961 - subcutaneous April 09, Active as Test BS once 2017 directed; daily dispense lancets formulary to insurance Glimepiride ND 14707372758 4 MG Orally Active 1 tablet Twice a day Results No Known Results Summary Purpose eClinicalWorks Submission
--- OUTSIDE RECORDS SUMMARY | 2019-05-12 21:39 | XMS REPORT ---
[...] Status Dosage System Date Date Glimepiride ND 09100621702 4 MG Orally Active 1 tablet Twice a day Gabapentin ND 92990634949 100 MG Orally Active 1 capsule Three times a day Lancets [facility] [id number] - subcutaneous April 09, Active as Test BS once 2017 directed; daily dispense lancets formulary to insurance blood glucose test NDC 0 topically Test April 09Jul Active as strip BS once daily 2017 directed; 2018 DISPENSE TESTING STRIPS FORMULARY TO INSURANCE Cyclobenzaprine [facility] 40326542957 5 MG Orally Two Active 1 tablet as HCl times a day as needed needed Pioglitazone HCl ND 66556345721 30 MG Orally Sept Active 1 tablet Once a day 2017 BL Blood Glucose NDC 0 subcutaneous April 09, Active As Monitor Kit Test BS once 2017 directed; daily DISPENSE BG MONITOR FORMULARY TO INSURANCE Mobic [facility] 48911524686 7.5 MG Orally Active 1 tablet Once a day as needed Januvia ND 99066668604 50 MG Orally Sept Active 1 tablet Once daily 2017 Ondansetron HCl [facility] 81259808299 4 MG Orally Sept Active 1 tablet as Every 6-8 hours , needed for 2017 nausea/vomi ting Metformin HCl [facility] 20429868716 500 MG Orally Active 1 tablet Twice daily with a meal (for diabetes) Results No Known Results Summary Purpose eClinicalWorks Submission
--- OUTSIDE RECORDS SUMMARY | 2019-05-12 21:39 | XMS REPORT ---
[...] Dosage System Date Date Pioglitazone HCl [facility] 89897744186 15 MG Orally Aug 07, Active 1 tablet Once a day 2017 Results No Known Results Summary Purpose eClinicalWorks Submission
[2019-05-12] MEDS ORDERED: MEPERIDINE HCL 25 MG/0.5 ML ONE (22:28)
[2019-05-12 22:29] LABS: Absolute Lymphocytes (CBC) 2.5 K/uL (0.7-4.9); Basophils % 0.9 % (0-1.3); Hematocrit 30.3 % (36.0-45.0); MPV 8.1 fL (7.6-11.3); Monocytes % 6.2 % (3.3-12.3); RBC Red Blood Cell Count 3.45 M/uL (3.86-4.86)
[2019-05-12 22:46] LABS: Albumin 2.9 g/dL (3.4-5.0); Bilirubin Direct 0.1 mg/dL (0-0.2); Bilirubin Total 0.6 mg/dL (0.2-1.0); Potassium 3.6 mmol/L (3.5-5.1); Protein, Total 8.8 g/dL (6.4-8.2)
[2019-05-12 22:50] LABS: Urine Culture Reflex Order REFLEXED
[2019-05-12 22:54] LABS: Urine Bacteria >50 /HPF (<20)
[2019-05-12 22:56] LABS: Urine Blood 2+ (NEG); Urine Glucose 2+ (NEG); Urine Protein 2+ (NEG); Urine Specific Gravity 1.015 (1.005-1.030)
--- NOTE | 2019-05-13 00:12 | EDPHYS ---
Physician Documentation [facility] Name: Myriam Bryant Age: 63 yrs Sex: Female : 1955 Arrival Date: 05/12/2019 Time: 21:38 Bed 6 Private MD: ED Physician Eric Bergeron HPI: 05/12 22:05 This 63 yrs old Female presents to ER via Unassigned with complaints of flank rn pain, cough for 3 weeks. 22:05 The patient complains of pain in the left mid back. The pain does not radiate. Onset: rn The symptoms/episode began/occurred 1 week(s) ago. Modifying factors: The symptoms are alleviated by nothing. the symptoms are aggravated by movement, palpation/percussion. Severity of pain: At its worst the pain was moderate in the emergency department the pain is unchanged. The patient has not experienced similar symptoms in the past. The patient has been recently seen by a physician:. REports has been coughing for 3 weeks, sons had similar viral infection, she was seen here recently, told negative w/u, for last week or so now having left flank pain and left abd pain. No vomiting/diarrhea. No urinary symptoms other than mild dysuria. NO trauma. . Historical: - Allergies: 22:13 No Known Allergies; ls4 - Home Meds: 22:13 glimepiride 4 mg Oral tab 1 tab once daily [Active]; metformin 1,000 mg Oral tab 1 tab ls4 2 times per day [Active]; pioglitazone oral oral [Active]; - PMHx: 22:13 Diabetes - NIDDM; Arthritis; Hyperlipidemia; ls4 - Immunization history:: Adult Immunizations unknown. - Social history:: Smoking status: Patient/guardian denies using tobacco. - Family history:: not pertinent. - Ebola Screening: : Patient negative for fever greater than or equal to 101.5 degrees Fahrenheit, and additional compatible Ebola Virus Disease symptoms Patient denies exposure to infectious person Patient denies travel to an Ebola-affected area in the 21 days before illness onset No symptoms or risks identified at this time. - Hospitalizations: : No recent hospitalization is reported. ROS: 22:05 Constitutional: Negative for fever, chills, and weight loss, Eyes: Negative for injury, rn pain, redness, and discharge, Neck: Negative for injury, pain, and swelling, Cardiovascular: Negative for chest pain, palpitations, and edema, Respiratory: Negative for shortness of breath, wheezing, and pleuritic chest pain, Abdomen/GI: + abd pain and nausea Back: + left flank pain MS/Extremity: Negative for injury and deformity, Skin: Negative for injury, rash, and discoloration, Neuro: Negative for numbness, tingling, and seizure Exam: 22:05 Constitutional: This is a well developed, well nourished patient who is awake, alert, rn tearful and crying Head/Face: Normocephalic, atraumatic. Eyes: Pupils equal round and reactive to light, extra-ocular motions intact. Lids and lashes normal. Conjunctiva and sclera are non-icteric and not injected. Cornea within normal limits. Periorbital areas with no swelling, redness, or edema. ENT: MMM Respiratory: Lungs have equal breath sounds bilaterally, clear to auscultation. No increased work of breathing, no retractions or nasal flaring. Abdomen/GI: soft, mild left sided abd tenderness, no rebound, no masses Back: No spinal tenderness. No costovertebral tenderness. Full range of motion. Skin: Warm, dry with normal turgor. Normal color with no rashes, no lesions, and no evidence of cellulitis. MS/ Extremity: Pulses equal, no cyanosis. Neurovascular intact. Full, normal range of motion. Equal circumference. Neuro: Awake and alert, GCS 15, oriented to person, place, time, and situation. Cranial nerves II-XII grossly intact. Motor strength 5/5 in all extremities. Sensory grossly intact. Cerebellar exam normal. Normal gait. Vital Signs: 22:13 BP 175 / 75; Pulse 85; Resp 24; Temp 99.3; Pulse Ox 98% on R/A; Weight 52.16 kg; Pain ls4 8/10; 22:22 BP 173 / 75; Pulse 83; Resp 18; Pulse Ox 95% on R/A; tl2 23:12 BP 148 / 54; Pulse 82; Resp 18; Pulse Ox 98% ; Pain 0/10; tl2 06/13 00:05 BP 150 / 59; Pulse 83; Resp 15; Pulse Ox 98% on R/A; tl2 01:09 BP 145 / 63; Pulse 80; Resp 19; Temp 99.2(O); Pulse Ox 95% on R/A; tl2 02:20 BP 124 / 56; Pulse 76; Resp 18; Pulse Ox 97% on R/A; tl2 MDM: 05/12 21:55 Patient medically screened. rn 05/13 00:08 Differential diagnosis: nephrolithiasis, pyelonephritis, UTI, diverticulitis. Data rn reviewed: vital signs, nurses notes, lab test result(s), radiologic studies, CT scan, and as a result, I will admit patient. Counseling: I had a detailed discussion with the patient and/or guardian regarding: the historical points, exam findings, and any diagnostic results supporting the discharge/admit diagnosis, lab results, radiology results, the need for further work-up and treatment in the hospital. Response to treatment: There is no appreciated change of the patient's symptoms at this time, and as a result, I will admit patient. Admission orders: after a detailed discussion of the patient's condition and case, the admit orders are written by me. ED course: Pt with only transient improvement of pain with demerol x 2, + bilateral partially obstructing 2mm ureteral stones with UTI, family uncomfortable taking patient home, patient crying and writhing in pain, will admit for pain control, abx, and urological consult.. 05/12 22:04 Order name: Basic Metabolic Panel 05/12 22:04 Order name: CBC with Diff rn 05/12 22:04 Order name: Creatinine for Radiology; Complete Time: 22:54 05/12 22:04 Order name: Hepatic Function; Complete Time: 22:54 05/12 22:04 Order name: Lipase; Complete Time: 22:54 05/12 22:04 Order name: Urine Microscopic Only; Complete Time: 23:22 05/12 22:06 Order name: Basic Metabolic Panel; Complete Time: 22:54 [facility] 05/12 22:06 Order name: CBC with Automated Diff; Complete Time: 22:54 [facility] 05/12 22:27 Order name: Urine Dipstick--Ancillary (enter results); Complete Time: 23:22 2 05/12 22:56 Order name: Urine Culture [facility] 05/12 23:52 Order name: Blood Culture Adult (2) rn 05/13 01:30 Order name: Basic Metabolic Panel [facility] 05/13 01:30 Order name: Basic Metabolic Panel EDMS 05/13 01:30 Order name: CBC with Automated Diff EDMS 05/12 22:04 Order name: IV Saline Lock; Complete Time: 22:22 rn 05/12 22:04 Order name: Labs collected and sent; Complete Time: 22:22 rn 05/12 22:04 Order name: CT Abd/Pelvis - IV Contrast Only rn 05/12 22:04 Order name: XRAY Chest (1 view) rn 05/12 22:04 Order name: Urine Dipstick-Ancillary (obtain specimen); Complete Time: 22:22 rn 05/12 22:04 Order name: EKG; Complete Time: 22:07 rn 05/12 22:04 Order name: EKG - Nurse/Tech; Complete Time: 22:22 rn 05/13 01:29 Order name: CONS Physician Consult EDMS 05/13 01:29 Order name: NPO EDMS 05/13 01:30 Order name: CBC with Automated Diff EDMS Administered Medications: 05/12 22:21 Drug: Demerol - Meperidine 12.5 mg Route: IVP; Site: right antecubital; tl2 23:00 Follow up: Response: No adverse reaction; Pain is decreased tl2 05/13 00:17 Drug: Rocephin - (cefTRIAXone) 1 grams Route: IVPB; Infused Over: 30 mins; Site: right tl2 antecubital; 00:23 Follow up: IV Status: Completed infusion; IV Intake: 50ml tl2 00:17 Drug: Demerol - Meperidine 12.5 mg Route: IVP; Site: right antecubital; tl2 01:00 Follow up: Response: No adverse reaction; Pain is decreased tl2 00:17 Drug: Flomax 0.4 mg Route: PO; tl2 02:22 Follow up: Response: No adverse reaction tl2 00:23 Drug: Magnesium Sulfate 1 grams Route: IVPB; Infused Over: 1 hrs; Site: right tl2 antecubital; 01:30 Follow up: IV Status: Completed infusion; IV Intake: 100ml tl2 Disposition: 05/13/19 00:11 Hospitalization ordered by Connie Oneil for Inpatient Admission. Preliminary diagnosis are Hydroureter, Hydronephrosis with renal and ureteral calculous obstruction, Urinary tract infection, site not specified, Intractable pain. - Bed requested for Telemetry/MedSurg (Inpatient). - Status is Inpatient Admission. tl2 - Condition is Stable. - Problem is new. - Symptoms are unchanged. UTI on Admission? Yes Signatures: Dispatcher [employer] EDMS Eric Bergeron MD MD rn Garcia, Cindy, RN RN cg Drois Quintero RN RN tl2 Kia Hernandez RN RN ls4 Corrections: (The following items were deleted from the chart) 01:18 00:11 Hospitalization Ordered by Connie Oneil MD for Inpatient Admission. Preliminary cg diagnosis is Hydroureter; Hydronephrosis with renal and ureteral calculous obstruction; Urinary tract infection, site not specified; Intractable pain. Bed requested for Telemetry/MedSurg (Inpatient). Status is Inpatient Admission. Condition is Stable. Problem is new. Symptoms are unchanged. UTI on Admission? Yes. rn 02:23 01:18 05/13/2019 00:11 Hospitalization Ordered by Connie Oneil MD for Inpatient tl2 Admission. Preliminary diagnosis is Hydroureter; Hydronephrosis with renal and ureteral calculous obstruction; Urinary tract infection, site not specified; Intractable pain. Bed requested for Telemetry/MedSurg (Inpatient). Status is Inpatient Admission. Condition is Stable. Problem is new. Symptoms are unchanged. UTI on Admission? Yes. cg
--- NOTE | 2019-05-13 00:12 | ER ---
Nurse's Notes [facility] Name: Myriam Bryant Age: 63 yrs Sex: Female : 1955 Arrival Date: 05/12/2019 Time: 21:38 Bed 6 Private MD: Diagnosis: Hydroureter;Hydronephrosis with renal and ureteral calculous obstruction;Urinary tract infection, site not specified;Intractable pain Presentation: 05/12 22:09 Presenting complaint: adult child states she has pain in her left flank and body aches. ls4 nausea and felt like she had a fever. Transition of care: patient was not received from another setting of care. Onset of symptoms is unknown. Risk Assessment: Do you want to hurt yourself or someone else? Patient reports no desire to harm self or others. Initial Sepsis Screen: Does the patient meet any 2 criteria? No. Patient's initial sepsis screen is negative. Does the patient have a suspected source of infection? No. Patient's initial sepsis screen is negative. Care prior to arrival: None. 22:09 Method Of Arrival: Ambulatory ls4 22:09 Acuity: VALDEMAR 3 ls4 Triage Assessment: 22:13 Headache History: Other pt complaint is flanks, headache is mild. General: Appears ls4 uncomfortable, Behavior is anxious, fussy. Pain: Complains of pain in left mid back Pain currently is 8 out of 10 on a pain scale. Pain began gradually, Also complains of nausea. Neuro: Level of Consciousness is awake, alert, obeys commands, Oriented to person, place, time, situation, Gait is steady, Speech is normal, Pupils are PERRLA. Respiratory: Respiratory effort is even, unlabored, Respiratory pattern is regular. Historical: - Allergies: 22:13 No Known Allergies; ls4 - Home Meds: 22:13 glimepiride 4 mg Oral tab 1 tab once daily [Active]; metformin 1,000 mg Oral tab 1 tab ls4 2 times per day [Active]; pioglitazone oral oral [Active]; - PMHx: 22:13 Diabetes - NIDDM; Arthritis; Hyperlipidemia; ls4 - Immunization history:: Adult Immunizations unknown. - Social history:: Smoking status: Patient/guardian denies using tobacco. - Family history:: not pertinent. - Ebola Screening: : Patient negative for fever greater than or equal to 101.5 degrees Fahrenheit, and additional compatible Ebola Virus Disease symptoms Patient denies exposure to infectious person Patient denies travel to an Ebola-affected area in the 21 days before illness onset No symptoms or risks identified at this time. - Hospitalizations: : No recent hospitalization is reported. Screenin:17 Abuse screen: Denies threats or abuse. Denies injuries from another. Nutritional ls4 screening: No deficits noted. Tuberculosis screening: No symptoms or risk factors identified. 22:23 Fall Risk None identified. tl2 Assessment: 22:23 General: Appears in no apparent distress. uncomfortable, Behavior is cooperative, tl2 appropriate for age, crying. Pain: Complains of pain in left mid back. Neuro: Level of Consciousness is awake, alert, obeys commands, Oriented to person, place, time, situation. Respiratory: Airway is patent Respiratory effort is even, unlabored, Respiratory pattern is regular, symmetrical. GI: Reports nausea. : No signs and/or symptoms were reported regarding the genitourinary system. Derm: Skin is pink, warm \T\ dry. 23:12 Reassessment: Patient appears in no apparent distress at this time. Patient and/or tl2 family updated on plan of care and expected duration. Pain level reassessed. Patient is alert, oriented x 3, equal unlabored respirations, skin warm/dry/pink. pt resting comfortably, no questions or concerns at this time. 05/13 00:06 Reassessment: pt c/o pain, notified, new orders see MAR. tl2 01:00 Reassessment: Patient appears in no apparent distress at this time. Patient and/or tl2 family updated on plan of care and expected duration. Pain level reassessed. Patient is alert, oriented x 3, equal unlabored respirations, skin warm/dry/pink. 02:20 Reassessment: Patient appears in no apparent distress at this time. Patient and/or tl2 family updated on plan of care and expected duration. Pain level reassessed. Patient is alert, oriented x 3, equal unlabored respirations, skin warm/dry/pink. pt stable for transport to floor. Vital Signs: 05/12 22:13 BP 175 / 75; Pulse 85; Resp 24; Temp 99.3; Pulse Ox 98% on R/A; Weight 52.16 kg; Pain ls4 8/10; 22:22 BP 173 / 75; Pulse 83; Resp 18; Pulse Ox 95% on R/A; tl2 23:12 BP 148 / 54; Pulse 82; Resp 18; Pulse Ox 98% ; Pain 0/10; tl2 0613 00:05 BP 150 / 59; Pulse 83; Resp 15; Pulse Ox 98% on R/A; tl2 01:09 BP 145 / 63; Pulse 80; Resp 19; Temp 99.2(O); Pulse Ox 95% on R/A; tl2 02:20 BP 124 / 56; Pulse 76; Resp 18; Pulse Ox 97% on R/A; tl2 ED Course: 05/12 21:38 Patient arrived in ED. am2 21:55 Eric Bergeron MD is Attending Physician. rn 22:06 Radiology exam delayed due to lab results not completed at this time. (BUN/Creatinine). vm2 22:11 Triage completed. ls4 22:13 Arm band placed on. ls4 22:15 Urine collected: clean catch specimen. tl2 22:17 Patient has correct armband on for positive identification. Placed in gown. Bed in low ls4 position. Call light in reach. Side rails up X 1. 22:20 Inserted saline lock: 20 gauge in right antecubital area, using aseptic technique. tl2 Blood collected. 22:22 Initial lab(s) drawn, by me, sent to lab. EKG done, by ED staff, reviewed by Eric Bergeron MD. 22:25 XRAY Chest (1 view) In Process Unspecified. EDMS 22:35 Radiology exam delayed due to lab results not completed at this time. (BUN/Creatinine). vm2 22:[address] via wheelchair. il 23:02 Doris Quintero, RN is Primary Nurse. tl2 23:21 CT completed. Patient tolerated procedure well. Patient moved back from CT. 23:27 CT Abd/Pelvis - IV Contrast Only In Process Unspecified. EDMS 05/13 00:09 Connie Oneil MD is Hospitalizing Provider. rn 02:20 No provider procedures requiring assistance completed. Patient admitted, IV remains in tl2 place. Administered Medications: 05/12 22:21 Drug: Demerol - Meperidine 12.5 mg Route: IVP; Site: right antecubital; tl2 23:00 Follow up: Response: No adverse reaction; Pain is decreased tl2 05/13 00:17 Drug: Rocephin - (cefTRIAXone) 1 grams Route: IVPB; Infused Over: 30 mins; Site: right tl2 antecubital; 00:23 Follow up: IV Status: Completed infusion; IV Intake: 50ml tl2 00:17 Drug: Demerol - Meperidine 12.5 mg Route: IVP; Site: right antecubital; tl2 01:00 Follow up: Response: No adverse reaction; Pain is decreased tl2 00:17 Drug: Flomax 0.4 mg Route: PO; tl2 02:22 Follow up: Response: No adverse reaction tl2 00:23 Drug: Magnesium Sulfate 1 grams Route: IVPB; Infused Over: 1 hrs; Site: right tl2 antecubital; 01:30 Follow up: IV Status: Completed infusion; IV Intake: 100ml tl2 Intake: 00:23 IV: 50ml; Total: 50ml. tl2 01:30 IV: 100ml; Total: 150ml. tl2 Outcome: 00:11 Decision to Hospitalize by Provider. rn 02:20 Admitted to Med/surg accompanied by tech, via stretcher, room 216, with chart, Report tl2 called to KASH Rea 02:20 Condition: stable 02:20 Discharge instructions given to patient, family, Instructed on the need for admit. 02:23 Patient left the ED. tl2 Signatures: Dispatcher [employer] James Quispe Roman, MD MD rn Knox, Taylor, RN RN tl2 Yoshi Ward Amanda am2 McGuire, Victoria 2 Kia Hernandez RN RN ls4 Corrections: (The following items were deleted from the chart) 05/12 22:24 22:23 Inserted saline lock: 20 gauge in right antecubital area, using aseptic tl2 technique. Blood collected. tl2 05/13 01:32 01:09 BP 145 / 63; Pulse 80bpm; Resp 19bpm; Pulse Ox 95% RA; tl2 tl2
[2019-05-13] MEDS ORDERED: MEPERIDINE HCL 25 MG/0.5 ML ONE (00:25)
[2019-05-13] MEDS ORDERED: CEFTRIAXONE 1000 MG/VIAL ONE (00:26)
[2019-05-13] MEDS ORDERED: TAMSULOSIN 0.4 MG SR CAP ONE (00:26)
[2019-05-13] MEDS ORDERED: NA CHLORIDE 0.9% 50 ML IV ONE (00:26)
[2019-05-13] MEDS ORDERED: MAGNESIUM SULFATE 1 gm IVPB 1 GM/100 ML BAG IV ONE (00:34)
--- NOTE | 2019-05-13 01:14 | P.HP ---
Certification for Inpatient Patient admitted to: Inpatient With expected LOS: >2 Midnights Practitioner: I am a practitioner with admitting privileges, knowledge of patient current condition, hospital course, and medical plan of care. Services: Services provided to patient in accordance with Admission requirements found in Title 42 Section 412.3 of the Code of Federal Regulations Patient History Date of Service: 05/13/19 Reason for admission: UTI, bilateral hydronephrosis History of Present Illness: Ms Bryant is a 63 years old woman with history of DM II, HTN, who start with LLQ pain about 2 weeks ago. The patient was colicky like, radiating to left flank initially. It was associated with nausea and vomiting. She has had subjective fever. Gradually, her pain was getting more intense, and diffuse. Today she came to ER because worsening symptoms. Lab work shows leukocytosis, abnormal UA consistent with UTI. CT abd/pelvis remarkable for bilateral ureteral stone with hydronephrosis. Temp 99.3. Allergies No Known Allergies Allergy (Unverified 09/24/16 21:26) Home Medications: Lovastatin [Mevacor*] 20 mg PO DAILY 09/25/16 Metformin HCl [Glucophage] 1,000 mg PO BID 09/25/16 levoFLOXacin [Levaquin] 250 mg PO DAILY #4 tab 09/26/16 metroNIDAZOLE [Flagyl] 250 mg PO BID #20 tablet 09/26/16 - Past Medical/Surgical History Diabetic: Yes -: DM-2;diagnosed 1 week ago -: Cholecystectomy -: Hysterectomy - Family History Sister -: Diabetes, Other (see notes) Notes: dialysis - Social History Smoking Status: Never smoker Alcohol use: No CD- Drugs: No Caffeine use: Yes Place of Residence: Home Review of Systems 10-point ROS is otherwise unremarkable Physical Examination - Physical Exam General: Alert, In no apparent distress HEENT: Atraumatic, PERRLA, Mucous membr. moist/pink, EOMI, Sclerae nonicteric Neck: Supple, 2+ carotid pulse no bruit, No LAD, Without JVD or thyroid abnormality Respiratory: Clear to auscultation bilaterally, Normal air movement Cardiovascular: Regular rate/rhythm, Normal S1 S2 Gastrointestinal: Normal bowel sounds, Tenderness (diffuse, bilateral flank, ) Musculoskeletal: No tenderness Integumentary: No rashes Neurological: Normal speech, Normal strength at 5/5 x4 extr, Normal tone, Normal affect Lymphatics: No axilla or inguinal lymphadenopathy - Studies Laboratory Data (last 24 hrs) 05/12/19 22:20: Creatinine 0.86 05/12/19 22:20: WBC 13.2 H, Hgb 10.3 L, Hct 30.3 L, Plt Count 376 05/12/19 22:20: Sodium 135 L, Potassium 3.6, BUN 14, Creatinine 0.87, Glucose 304 H, Total Bilirubin 0.6, AST 12 L, ALT 13, Alkaline Phosphatase 91, Lipase 232 Assessment and Plan - Problems (Diagnosis) (1) UTI (urinary tract infection) Current Visit: Yes Status: Acute Qualifiers: Urinary tract infection type: acute cystitis Hematuria presence: without hematuria Qualified Code(s): N30.00 - Acute cystitis without hematuria (2) Ureterolithiasis Current Visit: Yes Status: Acute (3) Hydronephrosis Current Visit: Yes Status: Acute Qualifiers: Hydronephrosis type: with ureteral calculous obstruction Qualified Code(s) : N13.2 - Hydronephrosis with renal and ureteral calculous obstruction (4) Diabetes mellitus Onset Date: 09/25/16 Current Visit: No Status: Acute Qualifiers: Diabetes mellitus type: type 2 Diabetes mellitus care home insulin use: without 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 Will start empiric treatment with Rocephin. Will keep the patient NPO and consult Dr Goodwin. - Advance Directives Does patient have a Living Will: Yes Does patient have a Durable POA for Healthcare: No - Code Status/Comfort Care Code Status Assessed: Yes Code Status: Full Code
[2019-05-13] MEDS ORDERED: ACETAMINOPHEN 500 MG TAB PO PRN (01:26)
[2019-05-13] MEDS ORDERED: MORPHINE 2 MG/ML SYR IV PRN (01:26)
[2019-05-13] MEDS: NA CHLORIDE 0.9% 1,000 ML IV SCH ×4 (02:00→22:00)
[2019-05-13 02:33] VITALS: BMI 21.1
[2019-05-13] MEDS ORDERED: KCL 20 MEQ/100 mL IVPB 20 MEQ/100 ML BAG IV SCH (05:00)
[2019-05-13] MEDS: INSULIN -REGULAR HUMAN 50 UNIT/0.5 ML ML SQ SCH ×5 (06:31→21:32)
[2019-05-13] MEDS: ONDANSETRON 4 MG/2 ML VIAL IV PRN (06:35)
--- NOTE | 2019-05-13 06:53 | EKG ---
Test Date: 2019-05-12 Test Time: 22:19:54 Shorthand Teacher: SHARRI MEASUREMENT RESULTS: Intervals: Rate: 79 IA: 140 QRSD: 76 QT: 370 QTc: 424 [place]: P: 69 IA: 140 QRS: 57 T: 50 INTERPRETIVE STATEMENTS: Normal sinus rhythm Normal ECG Compared to ECG 11/27/2016 11:09:38 No significant changes Electronically Signed On 05-13-19 06:53:07 CDT by Librado Liz
--- NOTE | 2019-05-13 07:40 | RAD REPORT ---
EXAM DESCRIPTION: RAD - Chest Single View - 05/12/2019 10:27 pm CLINICAL HISTORY: Left-sided chest pain COMPARISON: April 24 TECHNIQUE: AP portable chest image was obtained 2226 hours . FINDINGS: Lungs are clear. Heart and vasculature are normal. No measurable pleural effusion and no p neumothorax. No acute bony abnormality seen. No acute aortic findings suspected. IMPRESSION: No acute cardiopulmonary process.
--- NOTE | 2019-05-13 10:12 | RAD REPORT ---
EXAM DESCRIPTION: CT - Abdomen Pelvis W Contrast - 05/13/2019 6:52 am CLINICAL HISTORY: The patient is 63 years old and is Female; left flank and abd pain TECHNIQUE: Axial computed tomography images of the abdomen and pelvis with intravenous contrast. S agittal and coronal reformatted images were created and reviewed. This CT exam was performed using one or more of the following dose reduction techniques: automated exposure control, adjustment of t he mA and/or kV according to patient size, and/or use of iterative reconstruction technique. COMPARISON: CT abdomen and pelvis with contrast dated September 24, 2016. FINDINGS: LUNG BASES: Minimal bibasilar atelectasis versus scarring. MEDIASTINUM: Small hiatal hernia. ABDOMEN: LIVER: Unremarkable. No mass. GALLBLADDER AND BILE DUCTS: Prior cholecystectomy. No ductal dilation. PANCREAS: Unremarkable. No mass. No ductal dilation. SPLEEN: Unremarkable. No splenomegaly. ADRENALS: Unremarkable. No mass. KIDNEYS AND URETERS: Bilateral hydronephrosis and hydroureter, right greater then left. There is u rothelial thickening/enhancement and periureteral stranding bilaterally. 2 mm stone in the distal rig ht ureter (series 501, image 60). Additional 2 mm distal left ureteral stone is present (series 503, image 78). Additional punctate stone in the superior pole of the left kidney. STOMACH AND BOWEL: Unremarkable. No obstruction. No mucosal thickening. PELVIS: APPENDIX: The appendix is seen and is within normal limits. BLADDER: Bladder is decompressed. REPRODUCTIVE: Unremarkable as visualized. ABDOMEN and PELVIS: INTRAPERITONEAL SPACE: Unremarkable. No free air. No significant fluid collection. BONES/JOINTS: L5-S1 degenerative disease and associated spondylosis with bilateral neural foramina l narrowing. Mild osteopenia. No acute fracture. No dislocation. SOFT TISSUES: Unremarkable. VASCULATURE: Multiple pelvic phleboliths. No abdominal aortic aneurysm. LYMPH NODES: Unremarkable. No enlarged lymph nodes. IMPRESSION: 1. 2 mm distal ureteral stones bilaterally with bilateral hydronephrosis/ hydroureter, right greater than left as well as urothelial thickening/enhancement and periureteral stranding. 2. Small bilateral hernia. 3. Osteopenia and L5-S1 degenerative disc disease/spondylosis. Electronically signed by: Burt Campo DO 05/12/2019 11:44 PM CDT Due to temporary technical issues with the PACS/Fluency reporting system, reports are being signed by the in house radiologist as a courtesy to ensure prompt reporting. The interpreting radiologist is f ully responsible for the content of the report.
--- NOTE | 2019-05-13 10:26 | P.PN ---
Subjective Date of Service: 05/13/19 Primary Care Provider: Dr. Bradley Chief Complaint: UTI, bilateral hydronephrosis Subjective: Other (Patient still with abdominal pain. Pain controlled.) Physical Examination - Vital Signs Temperature: 97.6 F Blood Pressure: 123/58 Pulse: 78 Respirations: 16 Pulse Ox (%): 95 - Physical Exam General: Alert, In no apparent distress, Cooperative, Other (Patient resting in bed) HEENT: Atraumatic, Other (Dry mucous membranes) Neck: Supple Respiratory: Clear to auscultation bilaterally, Normal air movement Cardiovascular: Normal pulses, Regular rate/rhythm Gastrointestinal: Normal bowel sounds, Soft and benign, Non-distended, No rebound, No guarding, Tenderness (Pain to the abdomen-diffuse) Neurological: Normal speech, Normal strength at 5/5 x4 extr, Normal tone, Normal affect - Studies Laboratory Data (last 24 hrs) 05/12/19 22:20: Creatinine 0.86 05/12/19 22:20: WBC 13.2 H, Hgb 10.3 L, Hct 30.3 L, Plt Count 376 05/12/19 22:20: Sodium 135 L, Potassium 3.6, BUN 14, Creatinine 0.87, Glucose 304 H, Total Bilirubin 0.6, AST 12 L, ALT 13, Alkaline Phosphatase 91, Lipase 232 Medications List Reviewed: Yes Assessment & Plan Discharge Plan: Home Plan to discharge in: Greater than 2 days Physician Review Additional Text: Impression: UTI with bilateral ureteral stone with hydronephrosis and hydroureter Diabetes mellitus type 2, [id number] Anemia likely iron deficiency Plan: UTI with bilateral ureteral stone with hydronephrosis and hydroureter: Continue with IV fluids and antibiotic therapy. Urine and blood cultures obtained. Urology has been consulted. Anticipate urological intervention. Await recommendation. Continue to monitor closely. Will provide medication for nausea and pain. Will continue to reassess. Likely discharge in the next 3- 5 days. Diabetes mellitus type 2, [id number]: Continue with sliding scale. Will monitor closely. Anemia likely iron deficiency: Will monitor and check iron and B12 studies. Time Spent Managing Pts Care (In Minutes): 55
[2019-05-13] MEDS ORDERED: TRAMADOL HCL 50 MG TAB PO PRN (10:27)
[2019-05-13] MEDS ORDERED: HYDROCODONE/APAP 7.5/325 MG TAB PO PRN (10:27)
[2019-05-13] MEDS ORDERED: GENTAMICIN 100 MG/100 ML BAG 100 ML IV ONE (14:33)
[2019-05-13] MEDS ORDERED: MIDAZOLAM HCL 2 MG/2 ML INJ ONE (14:40)
[2019-05-13] MEDS ORDERED: FENTANYL CITR 100 MCG/2 ML ONE (14:40)
[2019-05-13] MEDS ORDERED: LIDOCAINE 1% MPF 5 ML VIAL ONE (14:40)
[2019-05-13] MEDS ORDERED: PROPOFOL 200 MG/20 ML VIAL IV ONE (14:40)
[2019-05-13] MEDS ORDERED: ONDANSETRON 4 MG/2 ML VIAL ONE (15:03)
[2019-05-13] MEDS ORDERED: KETOROLAC 30 MG/ML INJ ONE (15:03)
--- NOTE | 2019-05-13 17:03 | CON ---
History Of Present Illness: A 63-year-old patient with a history of diabetes type 2, hypertension, been having left lower quadrant pain for 2 weeks ago now. The pain was colicky in nature, radiated to the left flank initially, associated with nausea and vomiting. She has some subjective fevers. She came to the ER where workup was performed including CT scan of the abdomen and pelvis. This showed bilateral hydronephrosis and hydroureter, greater in the right than on the left. There was ureteral thickening and enhancement of the periureteral tissue stranding bilaterally. CT was read as a 2 mm stone in the distal right ureter, and a 2 mm stone in the distal left ureter is present also but on review with Dr Kirkland , they were not apparent, the left was not visible and the one on the right could have been vascular calcification. Allergies: NO KNOWN DRUG ALLERGIES. Home Medication: Lovastatin, metformin, levothyroxine, Flagyl. Past Medical History: Diabetes type 2, diagnosed 1 week ago, cholecystectomy, hysterectomy. Family History: Sister has diabetes, on dialysis. Social History: No smoking history. Alcohol none. Drugs none. Caffeine use yes. Resides at home. Review of Systems: Ten-point review of systems otherwise unremarkable. Physical Examination: General: She is afebrile, stable. HEENT: Atraumatic and normocephalic. Neck: Supple. Respiratory: Clear to auscultation. Cardiovascular: S1-S2. Gastrointestinal: Normal bowel sounds. Skin: No rashes. Neurologic: Normal speech. Laboratory Review: Creatinine 0.86. White count 13.2, H and H of 10 and 30, platelets 376. Electrolytes reviewed, creatinine 0.8, otherwise normal. Assessment: Bilateral urolithiasis, bilateral hydroureter in diabetic patient. The patient needs at least minimal cysto-retrograde stents and a possible ureteroscopy and stone extraction if possible. All the general information, alternatives were reviewed, and the patient wished to proceed. KWABENA/MIGUEL Voice ID: [id number] Report ID: [id number] TREE
[2019-05-13] MEDS ORDERED: GLUCAGON 1 MG/VIAL IM PRN (18:12)
[2019-05-13] MEDS ORDERED: D50W 25 GM/50 ML SYRINGE IV PRN (18:12)
[2019-05-13] MEDS ORDERED: CEFTRIAXONE 1 GM/NS 50 ML 1 GM/50 ML BAG IV SCH (21:00)
[2019-05-13] MEDS: CEFTRIAXONE/SWI 1gm 1 GM/10 ML SYR IV SCH (21:31)
[2019-05-14] MEDS: NA CHLORIDE 0.9% 1,000 ML IV SCH ×2 (01:20→08:00)
--- NOTE | 2019-05-14 02:38 | OP ---
Surgeon: Carmen Goodwin MD Preoperative Diagnoses: Questionable bilateral urolithiasis and right hydronephrosis. Postoperative Diagnoses: Right Ureteropelvic Junction Obstruction by loop ureter, no stones seen on the left nor on the right. Procedure Performed: Cystoscopy, left retrograde pyelogram; cystoscopy, right retrograde pyelogram; right ureteroscopy for navigating the UPJ with the wire to get into renal pelvis; right double-J stent placement, 6 x 24 cm. Complications: Wire traversed the UPJ area along the periurethral area. It was outside the lumen, so we had to do a ureteroscopy, find the lumen, and pass the Glidewire into the renal pelvis, then the scope into the renal pelvis, and we switched to a regular Bentson wire and removed the scope and then placed a standard stent in place to keep the ureter open. Ureter will need at least 7 days to heal and then the stent may be removed. No stones were seen. If there was a stone, it was a small one that was not visible when we did the scope. Anyway, this stent will dilate the ureter until the small stone will pass. There was no obstruction on the left side. Indication For Procedure: Ms. Bryant is a 63-year-old lady, presented with the above diagnosis. It was deemed necessary to get her drain being that she is diabetic. So, she was given all the general information, alternatives, and risks. She was taken to the operative suite, placed in a supine position. On cystoscopy little red spots like she had a UTI ongoing. She was on IV antibiotics. We checked the left side to check for obstruction during our left retrograde pyelogram, but no obstruction was seen. The ureter drained well, so no stent was placed on this side. Then, we did the right side. There was a questionable filling defect in the right distal ureter, so the ureter was dilated and a rigid ureteroscope was placed. No stone was seen. On trying to pass the wire up to the renal pelvis, there was some extravasation of dye at the UPJ area, so we switched to the flexible ureteroscope and we were able to pass it up to the UPJ area, inspected the area, saw a little mee in the ureter. We then moved the flexoscope towards the lumen, and the wire passed into the renal pelvis. It was difficult to manipulate the glide into pelvis. We were then able to slide the scope over, verifying that we were in the renal pelvis. Then, pictures were taken of the upper pole calyx. We then switched the Glidewire to a regular Bentson wire , and exchanged for a stent 6 x 24 cm. Procedure was then terminated. The patient went to recovery room in stable condition. KWABENA/MIGUEL Voice ID: [id number] Report ID: [id number] TREE
[2019-05-14 05:37] LABS: Absolute Lymphocytes (CBC) 1.7 K/uL (0.7-4.9); Basophils % 0.4 % (0-1.3); Eosinophils % 1.4 % (0-4.4); Hematocrit 25.7 % (36.0-45.0); Lymphocytes % 17.7 % (15.3-44.8); MPV 7.8 fL (7.6-11.3); Monocytes % 6.7 % (3.3-12.3); RBC Red Blood Cell Count 2.94 M/uL (3.86-4.86)
[2019-05-14 05:50] LABS: Magnesium 1.9 mg/dL (1.8-2.4); Potassium 4.5 mmol/L (3.5-5.1)
[2019-05-14 07:04] LABS: Blood Morphology Comment NOT SEEN (NOT SEEN); Platelet Estimate ADEQ; Urine White Blood Cell Casts OK
[2019-05-14] MEDS: INSULIN -REGULAR HUMAN 50 UNIT/0.5 ML ML SQ SCH ×4 (08:38→21:52)
[2019-05-14 08:40] LABS: Ferritin 332.4 ng/mL (8-388)
--- NOTE | 2019-05-14 08:47 | P.PN ---
Subjective Date of Service: 05/14/19 Primary Care Provider: Dr. Bradley Chief Complaint: UTI, bilateral hydronephrosis Subjective: Improving, Doing well Physical Examination - Vital Signs Temperature: 97.9 F Blood Pressure: 145/63 Pulse: 77 Respirations: 18 Pulse Ox (%): 97 - Physical Exam General: Alert, In no apparent distress, Oriented x3, Cooperative HEENT: Atraumatic Neck: Supple Respiratory: Clear to auscultation bilaterally, Normal air movement Cardiovascular: Normal pulses, Regular rate/rhythm Gastrointestinal: Normal bowel sounds, Soft and benign, Non-distended, No tenderness, No masses, No rebound, No guarding Musculoskeletal: No erythema, No tenderness, No warmth Integumentary: No tenderness/swelling, No erythema, No warmth, No cyanosis Neurological: Normal speech, Normal strength at 5/5 x4 extr, Normal tone, Normal affect - Studies Medications List Reviewed: Yes Assessment & Plan Discharge Plan: Home Plan to discharge in: 24 Hours Physician Review Additional Text: Impression: UTI with bilateral ureteral stone with hydronephrosis and hydroureter Diabetes mellitus type 2, [id number]-[id number] Anemia likely iron deficiency Plan: UTI with bilateral ureteral stones with hydronephrosis and hydroureter status post cystoscopy, left and right retrograde pyelogram showing no stones, and right double-J stent placement(6 x 24 cm): Patient had cystoscopy and no stones were identified. Stent placed to the right ureter. Patient tolerated procedure well. Patient without pain. Urine culture pending. Patient has improved. Encourage ambulation. Will provide incentive spirometer. Patient will need follow up with urology in 1 week with stent removal. Likely discharge in the next 1-2 days pending urine culture results. I will turn the service over to Dr. Bauer tomorrow. I will go over the plan of care with her. Diabetes mellitus type 2, wwy-csgbrxk-nciacqyyh: Blood sugar elevated. Will restart some of her home medication. Continue with sliding scale. Will monitor and adjust closely. Anemia with iron and B12 deficiency: Will start iron and B12 supplementation. This can be followed up as an outpatient. Time Spent Managing Pts Care (In Minutes): 55
[2019-05-14] MEDS ORDERED: CYANOCOBALAMIN 1000MCG/ML INJ IM ONE (08:49)
[2019-05-14] MEDS: FERROUS SULFATE 325 MG TAB PO SCH ×2 (09:50→21:52)
[2019-05-14] MEDS: CYANOCOBALAMIN 1,000 MCG TAB PO SCH (09:50)
[2019-05-14] MEDS: PIOGLITAZONE 15 MG TAB PO SCH (09:50)
[2019-05-14] MEDS ORDERED: HYDRALAZINE HCL 20 MG/ML VIAL IV PRN (12:03)
--- NOTE | 2019-05-14 16:38 | PN ---
Subjective: Ms. Bryant is stable, no complaints. She has a right stent placed yesterday for complica rafael UPJ navigation. She has a UTI, which cultures were pending. Plan: We will wait for the cultures to come back and send her home on p.o. antibiotics. We will tania ve the stent in at least for a week, 7-14 days, but can be removed in the office via strings. KWABENA/MIGUEL Voice ID: [id number] Report ID: [id number]
[2019-05-14] MEDS ORDERED: METFORMIN HCL 500 MG TAB PO SCH (17:00)
[2019-05-14] MEDS ORDERED: ENOXAPARIN 40 MG/0.4 ML SQ SCH (17:00)
[2019-05-14] MEDS: CARVEDILOL 3.125 MG TAB PO SCH (17:15)
[2019-05-14] MEDS: ONDANSETRON 4 MG/2 ML VIAL IV PRN (18:49)
[2019-05-14] MEDS ORDERED: NA CHLORIDE 0.9% 500 ML IV ONE (19:37)
[2019-05-14] MEDS: CEFTRIAXONE/SWI 1gm 1 GM/10 ML SYR IV SCH (21:51)
[2019-05-15 04:28] LABS: Absolute Lymphocytes (CBC) 2.2 K/uL (0.7-4.9); Basophils % 0.6 % (0-1.3); Eosinophils % 2.1 % (0-4.4); Hematocrit 27.1 % (36.0-45.0); Lymphocytes % 26.3 % (15.3-44.8); Monocytes % 7.8 % (3.3-12.3); RBC Red Blood Cell Count 3.12 M/uL (3.86-4.86)
[2019-05-15 04:33] LABS: Magnesium 1.7 mg/dL (1.8-2.4); Potassium 3.7 mmol/L (3.5-5.1)
[2019-05-15] MEDS ORDERED: MAGNESIUM SULFATE 1 gm IVPB 1 GM/100 ML BAG IV ONE (06:00)
[2019-05-15] MEDS ORDERED: POTASSIUM 25 MEQ EFFERV TAB PO ONE (06:00)
[2019-05-15] MEDS: CARVEDILOL 3.125 MG TAB PO SCH (06:06)
[2019-05-15] MEDS: INSULIN -REGULAR HUMAN 50 UNIT/0.5 ML ML SQ SCH ×2 (08:30→12:26)
[2019-05-15] MEDS: CYANOCOBALAMIN 1,000 MCG TAB PO SCH (08:32)
[2019-05-15] MEDS: FERROUS SULFATE 325 MG TAB PO SCH (08:32)
[2019-05-15] MEDS: PIOGLITAZONE 15 MG TAB PO SCH (08:32)
[2019-05-15 08:41] VITALS: O2SAT 97
[2019-05-15] MEDS ORDERED: LISINOPRIL 5 MG TAB PO SCH (09:00)
[2019-05-15 09:42] VITALS: BP 130/58
[2019-05-15 10:29] VITALS: TEMP 98
--- NOTE | 2019-05-15 11:32 | P.DS ---
Admission Date: 05/13/19 Discharge Date: 05/15/19 Primary Care Provider: Dr. Bradley Disposition: ROUTINE DISCHARGE Discharge Condition: FAIR Reason for Admission: UTI, bilateral hydronephrosis - Problems (1) Hydronephrosis Current Visit: Yes Status: Acute Qualifiers: Hydronephrosis type: with ureteral calculous obstruction Qualified Code(s) : N13.2 - Hydronephrosis with renal and ureteral calculous obstruction (2) UTI (urinary tract infection) Current Visit: Yes Status: Acute Qualifiers: Urinary tract infection type: acute cystitis Hematuria presence: without hematuria Qualified Code(s): N30.00 - Acute cystitis without hematuria (3) Ureterolithiasis Current Visit: Yes Status: Acute Brief History of Present Illness: 63-year-old patient with a history of diabetes type 2, hypertension presented to ER with abdominal pain associated with feversCT scan of the abdomen and pelvis showed bilateral hydronephrosis and hydroureter, greater in the right than on the left. There was ureteral thickening and enhancement of the periureteral tissue stranding bilaterally. CT was read as a 2 mm stone in the distal right ureter, and a 2 mm stone in the distal left ureter Hospital Course: 63-year-old patient with a history of diabetes type 2, hypertension presented to ER with abdominal pain associated with feversCT scan of the abdomen and pelvis showed bilateral hydronephrosis and hydroureter, greater in the right than on the left. There was ureteral thickening and enhancement of the periureteral tissue stranding bilaterally. CT was read as a 2 mm stone in the distal right ureter, and a 2 mm stone in the distal left ureter ,pt was admitted for UTI and urolithiasis with hydronephrosis and urology was consulted ,pt had cystoscopy and right JJ stent placement ,UCx was growing E coli sensitive to cipro ,pt will be diced on ciprofloxacin for total of 7 days and f/ up with urology as in 1-2 weeks for stent removal pt noticed to have high BP and was started on lisinopril 2.5 mg pt need to repeat her BMP in 1-2 weeks with her PCP Vital Signs/Physical Exam: Temp Pulse Resp BP Pulse Ox 98 F 76 18 130/58 L 97 05/15/19 08:00 05/15/19 09:41 05/15/19 08:00 05/15/19 09:41 05/15/19 08:00 General: Alert, In no apparent distress, Oriented x3 HEENT: Atraumatic, Normocephalic, PERRLA Neck: Supple Respiratory: Clear to auscultation bilaterally, Normal air movement Cardiovascular: No edema, Regular rate/rhythm, Normal S1 S2 Gastrointestinal: Normal bowel sounds, Soft and benign, Non-distended Musculoskeletal: No clubbing, No swelling, No erythema, No tenderness Integumentary: No rashes, No breakdown Neurological: Normal speech Laboratory Data at Discharge: WBC 8.4 K/uL (4.3-10.9) 05/15/19 03:54 Hgb 9.4 g/dL (12.0-15.0) L 05/15/19 03:54 Hct 27.1 % (36.0-45.0) L 05/15/19 03:54 Plt Count 314 K/uL (152-406) 05/15/19 03:54 Sodium 139 mmol/L (136-145) 05/15/19 03:54 Potassium 3.7 mmol/L (3.5-5.1) 05/15/19 03:54 BUN 9 mg/dL (7-18) 05/15/19 03:54 Creatinine 0.72 mg/dL (0.55-1.3) 05/15/19 03:54 Glucose 294 mg/dL (74-106) H 05/15/19 03:54 Magnesium 1.7 mg/dL (1.8-2.4) L 05/15/19 03:54 Total Bilirubin 0.6 mg/dL (0.2-1.0) 05/12/19 22:20 AST 12 U/L (15-37) L 05/12/19 22:20 ALT 13 U/L (12-78) 05/12/19 22:20 Alkaline Phosphatase 91 U/L (45-117) 05/12/19 22:20 Lipase 232 U/L (73-393) 05/12/19 22:20 Home Medications: Benzonatate [Tessalon Perle*] 100 mg PO Q8H PRN 05/13/19 Glimepiride 4 mg PO BID 05/13/19 Ibuprofen 800 mg PO Q8H PRN 05/13/19 Metformin HCl [Glucophage*] 500 mg PO BID 05/13/19 Pioglitazone [Actos] 30 mg PO DAILY 05/13/19 Ciprofloxacin HCl 500 mg PO BID 5 Days #10 tablet 05/15/19 Lisinopril [Prinivil*] 2.5 mg PO DAILY #15 tab 05/15/19 New Medications: Ciprofloxacin HCl 500 mg PO BID 5 Days #10 tablet Lisinopril [Prinivil*] 2.5 mg PO DAILY #15 tab Patient Discharge Instructions: return to ER if develops fever. f/up with pcp in 1-2 weeks to reapt BMP Diet: Regular Activity: Ad shanika Followup: Carmen Goodwin MD [ACTIVE - CAN ADMIT] - Kamala Garcia MD [Primary Care Provider] -
--- NOTE | 2019-05-19 14:14 | RAD REPORT ---
EXAM DESCRIPTION: RAD - Urethrocystogrphy Retrograde - 05/13/2019 3:35 pm CLINICAL HISTORY: STONE REMOVAL COMPARISON: Pelvis dated 11/14/2017 FINDINGS: Total fluoro time: 4 minutes 54 seconds
== END 2019-05-15 13:30 | disposition home or self-care (01) | DRG 661 ==
LOC: ER 21:35 → 2ND 05-13 01:41
PROVIDERS: ADMIT Internal Medicine; ATTEND Internal Medicine
PROC: BT141ZZ Fluoroscopy of Kidneys, Ureters and Bladder using Low Osmolar Contrast (ICD-10-PCS; 2019-05-13)
PROC: 0T768DZ Dilation of Right Ureter with Intraluminal Device, Via Natural or Artificial Opening Endoscopic (ICD-10-PCS; principal; 2019-05-13 15:00)
DX: N13.6 Pyonephrosis (principal); B96.20 Unspecified Escherichia coli [E. coli] as the cause of diseases classified elsewhere; E11.9 Type 2 diabetes mellitus without complications; I10 Essential (primary) hypertension; D50.9 Iron deficiency anemia, unspecified; Z79.84 Long term (current) use of oral hypoglycemic drugs
CPT/HCPCS: 36415; 51610; 71045; 74177; 74450; 80048; 80076; 81003; 81015; 82607; 82728; 82962; 83540; 83690; 83735; 84466; 85025; 87040; 87077; 87086; 87088; 87186; 93005; 96365; 96375; 97161; 99285; J0360; J0696; J1580; J1650; J2175; J2250; J2270; J2405; J2704; J3010; J3420; J3475; J7030; Q9967

== ENCOUNTER 2021-02-24 13:40 | Emergency (ER) | payer MEDICARE, SELFPAY ==
--- OUTSIDE RECORDS SUMMARY | 2021-02-24 13:42 | XMS REPORT | Continuity of Care Document ---
:[address] [facility] t Address [address] [place] [address] Care Team Providers Name Role Phone Unavailable Unavailable Unavailable Problems This patient has no known problems. Allergies, Adverse Reactions, Alerts This patient has no known allergies or adverse reactions. Medications Ordered Filled Start Stop Current Ordering Indication Dosage Frequency Signature Comments Components Source Medication Medication Date Date Medication? Clinician (SIG) Name Name Ketan Aceves Yes Kamala [address] [facility] HCl e HCl 9-07 [facility] Yes Kamala [address] [facility] Ondansetron Ondansetron Yes Kamala [address] [facility] HCl HCl 9-06 [facility] as needed [facility] - [facility]: for [facility] 00 nausea/vom l iting [facility] Lancets Lancets Yes Kamala as [facility] 5-10 [facility] directed; [facility] - [facility]: dispense [facility] 00 lancets l formulary [facility] BL Blood BL Blood Yes Kamala As [facility] Glucose Glucose 5-10 [facility] directed; [facility] - Monitor Kit Monitor Kit 00:00: DISPENSE [facility] 00 BG MONITOR l FORMULARY [facility] TO ent INSURANCE Clinics blood blood 2019- No Kamala as [facility] glucose glucose 5-10 08-03 [facility] directed; [facility] - test strip test strip 00:00: 00:00 DISPENSE [facility] 00 :00 TESTING l STRIPS [facility] FORMULARY ent TO Clinics INSURANCE Glimepiride Glimepiride Yes Kamala [address] [facility] Gabapentin Gabapentin Yes Kamala [address] [facility] Cyclobenzap Cyclobenzap Yes Kamala [address] [facility] rine HCl rine HCl [facility] as needed [facility] Mobic Mobic Yes Kamala [address] [facility] Metformin Metformin Yes Kamala [address] [facility] HCl HCl [facility] with a [facility] Procedures This patient has no known procedures. Encounters Start End Encounter Admission Attending Care Care Encounter Source Date/Time Date/Time Type Type Clinicians Facility Department ID 2021-02-19 2021-02-19 Outpatient [facility] [id number] [facility] 2021-02-16 2021-02-16 Outpatient [facility] [id number] [facility] 2019-01-21 2019-01-21 [facility] [id number] [facility] 10:45:00 10:45:00 [facility] l Medicine Outpati ent Clinics 2019-01-14 2019-01-14 [facility] [id number] 13:44:00 13:44:00 [facility] Medicine Medicine Outpati ent Clinics 2018-08-07 2018-08-07 [facility] [id number] [facility] 11:01:00 11:01:00 [facility] Medicine l Medicine Outpati ent Clinics 2018-08-06 2018-08-06 [facility] [id number] [facility] 15:30:00 15:30:00 [facility] Medicine Medicine Outpati ent Clinics 2018-07-13 2018-07-13 [facility] [id number] 23[facility]04:00 23:04:00 [facility] Outpat[facility] Clinics 2018-07-09 2018-07-09 Outpatient Melody Ewing [id number] [address] 10:00:00 10:00:00 [facility] 2018-04-09 2018-04-09 Outpatient Melody Ewing [id number] 21:34:00 21:34:00 [facility] 2018-04-09 2018-04-09 Outpatient Melody Olivert [id number] [address] 13:15:00 13:15:00 [facility] Results This patient has no known results.
[2021-02-24] MEDS ORDERED: dexAMETHasone 10 MG/ML VIAL ONE (14:21)
[2021-02-24] MEDS ORDERED: MORPHINE 4 MG/ML SYR ONE (14:23)
--- NOTE | 2021-02-24 15:26 | RAD REPORT ---
EXAM DESCRIPTION: RAD - Lumbar Spine 3 Views - 02/24/2021 3:01 pm CLINICAL HISTORY: Back pain FINDINGS: The alignment of the lumbar spine is satisfactory. No fracture or dislocation is seen. Moderate disc space narrowing L5-S1 with osteophytes. Bones are osteoporotic
--- NOTE | 2021-02-24 15:28 | RAD REPORT ---
EXAM DESCRIPTION: USExtremity Venous Uni Ltd3 3:18 pm CLINICAL HISTORY: Right leg pain COMPARISON: None. FINDINGS: Right common femoral, superficial femoral, popliteal and right posterior tibial veins are compressible and demonstrate augmentation. Doppler demonstrates good flow. IMPRESSION: No evidence of deep venous thrombosis involving the right lower extremity.
--- NOTE | 2021-02-24 15:30 | RAD REPORT ---
EXAM DESCRIPTION: US - Lower Extremity Artery Uni Ltd - 02/24/2021 3:18 pm CLINICAL HISTORY: Right leg pain COMPARISON: None FINDINGS: The right common femoral, superficial femoral and popliteal arteries demonstrate biphasic waveforms The posterior tibial and dorsalis pedis arteries demonstrate biphasic waveforms bilaterally. The ampl itude of each waveform is diminished No occlusion seen. No proximal high-grade stenosis IMPRESSION: Mild disease involving the proximal and mid arteries right lower extremity Moderate to marked disease involving the distal right lower extremity arteries
[2021-02-24] MEDS ORDERED: ONDANSETRON 4 MG (ODT) TAB ONE (15:37)
--- NOTE | 2021-02-24 16:21 | EDPHYS ---
Physician Documentation [facility] Name: Myriam Bryant Age: 65 yrs Sex: Female : 1955 Arrival Date: 02/24/2021 Time: 13:43 Bed 8 Private MD: ED Physician Eric Bergeron HPI: 02/24 13:59 This 65 yrs old Female presents to ER via Ambulatory with complaints of Leg cp Pain. 14:00 The patient presents with pain, that is acute. The complaints affect the right leg and cp right foot. Context: resulted from an unknown cause, the patient can partially bear weight, the patient is able to ambulate, with mild difficulty, Problem is a result from a previous injury: No. Onset: The symptoms/episode began/occurred 2 week(s) ago. Modifying factors: the symptoms are aggravated by weight bearing, ambulating. Associated signs and symptoms: Pertinent negatives fever, numbness, swelling, warmth, weakness. Treatment prior to arrival includes: no previous treatment. 14:00 Patient reports primary care physician diagnosed her with sciatica and prescribed pain cp relievers that help, but pain continues without resolving. Patient denies injury. Historical: - Allergies: 13:44 No Known Allergies; ll1 - PMHx: 13:44 Arthritis; Diabetes - NIDDM; Hyperlipidemia; ll1 - Immunization history:: Flu vaccine is up to date. - Social history:: Smoking status: Patient denies any tobacco usage or history of. ROS: 14:05 MS/extremity: Positive for pain, of the right foot and right leg, Negative for injury cp or acute deformity, decreased range of motion. 14:05 Constitutional: Negative for fever. cp 14:05 Abdomen/GI: Negative for abdominal pain. 14:05 Back: Negative for pain at rest, pain with movement. 14:05 : Negative for urinary symptoms. 14:05 Neuro: Negative for altered mental status, headache, numbness, tingling, weakness. 14:05 All other systems are negative. Exam: 14:10 Constitutional: The patient appears in no acute distress, alert, awake, non-toxic, well cp developed, well nourished, uncomfortable. 14:10 Head/Face: Normocephalic, atraumatic. cp 14:10 Chest/axilla: Inspection: normal. 14:10 Cardiovascular: Rate: normal. 14:10 Respiratory: the patient does not display signs of respiratory distress, Respirations: normal, no use of accessory muscles. 14:10 Abdomen/GI: Inspection: abdomen appears normal, Palpation: abdomen is soft and non-tender, in all quadrants. 14:10 Back: vertebral tenderness, is not appreciated. 14:10 Musculoskeletal/extremity: Extremities: grossly normal except: noted in the right foot and right leg: pain, There is no evidence of decreased ROM, swelling, Pulses: noted to be 2+ in the right dorsalis pedis artery and left dorsalis pedis artery, the right foot and right leg Severe pain noted. Weight bearing: able to fully bear weight. 14:10 Skin: cellulitis, is not appreciated, no rash present. Vital Signs: 13:47 BP 169 / 73; Pulse 81; Resp 16; Temp 98.4; Pulse Ox 100% ; Pain 8/10; ll1 15:00 BP 148 / 68; Pulse 80; Resp 15; Pulse Ox 99% on R/A; hb 16:30 BP 142 / 68; Pulse 76; Resp 17; Pulse Ox 97% on R/A; hb MDM: 13:54 Patient medically screened. cp 16:20 Data reviewed: vital signs, nurses notes, radiologic studies, plain films, ultrasound, cp I have discussed the patient's presentation/case with the attending Emergency Department Physician; and as a result, I will discharge patient. 16:20 Counseling: I had a detailed discussion with the patient and/or guardian regarding: the cp historical points, exam findings, and any diagnostic results supporting the discharge/admit diagnosis, radiology results, the need for outpatient follow up, for definitive care, vascular surgery, to return to the emergency department if symptoms worsen or persist or if there are any questions or concerns that arise at home. Response to treatment: the patient's symptoms have markedly improved after treatment, VSS. Patient reports pain improved. Discussed results of radiology studies and need for urgent f/u with vascular surgery. Patient instructed to take daily baby aspirin. Will discharge to home for continued monitoring. 02/24 14:02 Order name: Extremity Venous Unilateral Ltd; Complete Time: 15:46 cp 02/24 15:46 Interpretation: Report reviewed. cp 02/24 14:02 Order name: LE Artery Uni Ltd; Complete Time: 15:46 cp 02/24 14:02 Order name: XRAY Lumbar Spine (3 Views); Complete Time: 15:46 cp Administered Medications: 14:10 Drug: Decadron (dexamethasone) 10 mg Route: IM; Site: right deltoid; hb 14:45 Follow up: Response: No adverse reaction hb 14:10 Drug: morphine 4 mg Route: IM; Site: left deltoid; hb 14:45 Follow up: Response: No adverse reaction hb 15:21 Drug: Zofran (Ondansetron) 4 mg Route: PO; hb 16:02 Follow up: Response: No adverse reaction hb 16:10 Drug: Aspirin Chewable Tablet 81 mg Route: PO; hb 17:12 Follow up: Response: No adverse reaction hb Disposition: 16:30 Chart complete. cp 18:20 Co-signature as Attending Physician, Eric Bergeron MD. rn Disposition: 02/24/21 16:20 Discharged to Home. Impression: Atherosclerosis of [place] arteries of extremities with intermittent claudication, right leg. - Condition is Stable. - Discharge Instructions: Intermittent Claudication, Peripheral Vascular Disease, Atherosclerosis, Aspirin and Your Heart. - Prescriptions for Tylenol- Codeine #3 300-30 mg Oral Tablet - take 2 tablets by ORAL route every 8-12 hours As needed; 20 tablet. Keflex 500 mg Oral Capsule - take 1 capsule by ORAL route every 8 hours for 10 days; 30 capsule. - Medication Reconciliation Form, Thank You Letter, Antibiotic Education, Prescription Opioid Use form. - Follow up: Private Physician; When: 2 - 3 days; Reason: Recheck today's complaints. - Problem is new. - Symptoms have improved. Signatures: Dispatcher [employer] EDEric Gamez MD MD rn Page, Corey, PA PA cp Umu Wolf RN RN hb Lewis, Lynsay, RN RN ll1 Corrections: (The following items were deleted from the chart) 17:13 16:20 02/24/2021 16:20 Discharged to Home. Impression: Atherosclerosis of [place] hb arteries of extremities with intermittent claudication, right leg. Condition is Stable. Forms are Medication Reconciliation Form, Thank You Letter, Antibiotic Education, Prescription Opioid Use. Follow up: Private Physician; When: 2 - 3 days; Reason: Recheck today's complaints. Problem is new. Symptoms have improved. cp
--- NOTE | 2021-02-24 16:21 | ER ---
Nurse's Notes [facility] Name: Myriam Bryant Age: 65 yrs Sex: Female : 1955 Arrival Date: 02/24/2021 Time: 13:43 Bed 8 Private MD: Diagnosis: Atherosclerosis of [place] arteries of extremities with intermittent claudication, right leg Presentation: 02/24 13:47 Chief complaint: Patient states: R leg pain x few months. R foot is painful and red for ll1 1 week. No fever. Coronavirus screen: Client denies travel out of the [place] in the last 14 days. At this time, the client does not indicate any symptoms associated with coronavirus-19. Ebola Screen: Patient denies travel to an Ebola-affected area in the 21 days before illness onset. Initial Sepsis Screen: Does the patient meet any 2 criteria? No. Patient's initial sepsis screen is negative. Does the patient have a suspected source of infection? Yes: Skin breakdown/wound. Risk Assessment: Do you want to hurt yourself or someone else? Patient reports no desire to harm self or others. Onset of symptoms was December 01, 2020. 13:47 Method Of Arrival: Ambulatory ll1 13:47 Acuity: VALDEMAR 4 ll1 Historical: - Allergies: 13:44 No Known Allergies; ll1 - PMHx: 13:44 Arthritis; Diabetes - NIDDM; Hyperlipidemia; ll1 - Immunization history:: Flu vaccine is up to date. - Social history:: Smoking status: Patient denies any tobacco usage or history of. Screenin:40 Abuse screen: Denies threats or abuse. Denies injuries from another. Nutritional hb screening: No deficits noted. Tuberculosis screening: No symptoms or risk factors identified. Fall Risk None identified. Assessment: 14:00 General: Appears in no apparent distress. Behavior is calm, cooperative. Pain: Pain hb currently is 8 out of 10 on a pain scale. Neuro: Level of Consciousness is awake, alert, obeys commands, Oriented to person, place, time, situation. Cardiovascular: Patient's skin is warm and dry. Rhythm is regular. Respiratory: Respiratory effort is even, unlabored, Respiratory pattern is regular, symmetrical. GI: No signs and/or symptoms were reported involving the gastrointestinal system. : No signs and/or symptoms were reported regarding the genitourinary system. EENT: No signs and/or symptoms were reported regarding the EENT system. Derm: Skin is pink, warm \T\ dry. Musculoskeletal: Reports right leg and foot pain. 14:59 Reassessment: Patient appears in no apparent distress at this time. Patient and/or hb family updated on plan of care and expected duration. Pain level reassessed. Patient is alert, oriented x 3, equal unlabored respirations, skin warm/dry/pink. 15:28 Reassessment: Pt vomit x 1. PA Page notified, Zofran administered as ordered. hb 16:30 Reassessment: Patient appears in no apparent distress at this time. Patient and/or hb family updated on plan of care and expected duration. Pain level reassessed. Patient is alert, oriented x 3, equal unlabored respirations, skin warm/dry/pink. Vital Signs: 13:47 BP 169 / 73; Pulse 81; Resp 16; Temp 98.4; Pulse Ox 100% ; Pain 8/10; ll1 15:00 BP 148 / 68; Pulse 80; Resp 15; Pulse Ox 99% on R/A; hb 16:30 BP 142 / 68; Pulse 76; Resp 17; Pulse Ox 97% on R/A; hb ED Course: 13:43 Patient arrived in ED. ll1 13:44 Arm band placed on Patient placed in an exam room, on a stretcher. ll1 13:49 Triage completed. ll1 13:49 Howard Bae PA is PHCP. cp 13:49 Eric Bergeron MD is Attending Physician. cp 14:02 Umu Wolf, KASH is Primary Nurse. hb 14:40 Patient has correct armband on for positive identification. Bed in low position. Call hb light in reach. 15:00 XRAY Lumbar Spine (3 Views) In Process Unspecified. EDMS 15:18 US Extremity Venous Unilateral Ltd In Process Unspecified. EDMS 15:18 US LE Artery Uni Ltd In Process Unspecified. EDMS 17:13 No provider procedures requiring assistance completed. Patient did not have IV access hb during this emergency room visit. Administered Medications: 14:10 Drug: Decadron (dexamethasone) 10 mg Route: IM; Site: right deltoid; hb 14:45 Follow up: Response: No adverse reaction hb 14:10 Drug: morphine 4 mg Route: IM; Site: left deltoid; hb 14:45 Follow up: Response: No adverse reaction hb 15:21 Drug: Zofran (Ondansetron) 4 mg Route: PO; hb 16:02 Follow up: Response: No adverse reaction hb 16:10 Drug: Aspirin Chewable Tablet 81 mg Route: PO; hb 17:12 Follow up: Response: No adverse reaction hb Outcome: 16:20 Discharge ordered by MD. cp 17:13 Discharged to home ambulatory, with family. hb 17:13 Condition: stable 17:13 Discharge instructions given to patient, family, Instructed on discharge instructions, follow up and referral plans. medication usage, Demonstrated understanding of instructions, follow-up care, medications, Prescriptions given X 2. 17:13 Patient left the ED. hb Signatures: Dispatcher [employer] EDMS Howard Bae PA PA cp Baxter, Heather, RN RN Lynn Ramirez RN RN ll1
[2021-02-24] MEDS ORDERED: ASPIRIN 81 MG CHEWABLE TABLET ONE (16:52)
[2021-02-25 01:17] VITALS: TEMP 98.4
[2021-02-25 01:20] VITALS: BP 142/68; O2SAT 97
== END 2021-02-24 17:13 | disposition home or self-care (01) ==
LOC: ER 13:40
DX: I70.211 Atherosclerosis of native arteries of extremities with intermittent claudication, right leg (principal)
CPT/HCPCS: 72100; 93926; 93971; 96372; 99283; J1100

== ENCOUNTER 2021-03-22 16:36 | Emergency (ER) | payer MEDICARE ==
--- OUTSIDE RECORDS SUMMARY | 2021-03-22 16:39 | XMS REPORT | Continuity of Care Document ---
:1955 Author Organization [facility] t Address [address] [place] [address] Care Team Providers Name Role Phone Doctor Unassigned, Name Attending Clinician Unavailable Problems This patient has no known problems. Allergies, Adverse Reactions, Alerts This patient has no known allergies or adverse reactions. Medications Ordered Filled Start Stop Current Ordering Indication Dosage Frequency Signature Comments Components Source Medication Medication Date Date Medication? Clinician (SIG) Name Name Ketan Aceves Yes Kamala [address] [facility] HCl e HCl -07 [facility] Yes Kamala [address] [facility] [address] [facility] Ondansetron Ondansetron Yes Kamala [address] [facility] HCl HCl -06 [facility] as needed [facility] - [facility]: for [facility] 00 nausea/vom l iting Outpati ent Clinics Lancets Lancets Yes Kamala as [facility] 5-10 [facility] directed; [facility] - 00:[facility]: dispense [facility] 00 lancets l formulary Outpati to ent insurance Clinics BL Blood BL Blood Yes Kamala As [facility] Glucose Glucose 5-10 [facility] directed; [facility] - Monitor Kit Monitor Kit 00:00: DISPENSE [facility] 00 BG MONITOR l FORMULARY Outpati TO ent INSURANCE Clinics blood blood 2019- No Kamala as [facility] glucose glucose 5-10 07-03 [facility] directed; [facility] - test strip test strip 00:00: 00:00 [...] Date/Time Type Type Clinicians Facility Department ID 2021-03-15 2021-03-15 Orders Doctor MARTIN [id number] 00:00:00 00:00:00 Only Unassigned, PRASAD [id number] [place] [facility] [id number] 2021-02-26 2021-02-26 Outpatient [facility] [id number] [facility] 2021-02-19 2021-02-19 Outpatient [facility] [id number] [facility] 2021-02-16 2021-02-16 Outpatient [facility] [id number] [facility] 2021-02-15 2021-02-15 Outpatient [facility] [id number] [facility] 2019-01-21 2019-01-21 [facility] [id number] [facility] 10:45:00 10:45:00 [facility] Medicine Outpati ent Clinics 2019-01-14 2019-01-14 [facility] [id number] 13:44:00 13:44:00 t [facility] Outpati ent Clinics 2018-08-07 2018-08-07 [facility] [id number] [facility] 11:01:00 11:01:00 [facility] Medicine Outpati ent Clinics 2018-08-06 2018-08-06 [facility] [id number] 15:30:00 15:30:00 [facility] Medicine Outpati ent Clinics 2018-07-13 2018-07-13 [facility] [id number] [facility] 23:04:00 23:04:00 [facility] Medicine Outpati ent Clinics 2018-07-09 2018-07-09 [facility] [id number] [address] 10:00:00 10:00:00 [facility] Medicine Outpati ent Clinics 2018-04-09 2018-04-09 [facility] [id number] 21[facility]34:00 21:34:00 [facility] Medicine Outpati ent Clinics 2018-04-09 2018-04-09 [facility] [id number] 13:15:00 13:15:00 [facility] Medicine Outpati ent Clinics Results This patient has no known results.
[2021-03-22] MEDS ORDERED: HYDROCODONE/APAP 5/325 MG TAB ONE (19:45)
[2021-03-22] MEDS ORDERED: cloNIDine HCL 0.1 MG TAB ONE (19:45)
--- NOTE | 2021-03-22 20:57 | RAD REPORT ---
EXAM DESCRIPTION: US - Lower Extremity Artery Uni Ltd - 03/22/2021 8:45 pm CLINICAL HISTORY: PAIN COMPARISON: Lower Extremity Artery Uni Ltd dated 02/24/2021 FINDINGS: Doppler interrogation of the right lower extremity arterial system was performed. Triphasic waveform is seen in the right common femoral artery and superficial femoral artery. The pop liteal, posterior tibial arteries appear blunted with monophasic waveforms. Dorsalis pedis arteries c ould not be obtained. IMPRESSION: Moderate peripheral vascular disease is seen involving the popliteal artery and distal v essels. Findings are suspicious for a flow-limiting stenosis at the level of the distal SFA.
[2021-03-22 21:39] LABS: Absolute Lymphocytes (CBC) 3.1 K/uL (0.7-4.9); Basophils % 0.6 % (0-1.3); Hematocrit 27.7 % (36.0-45.0); Lymphocytes % 39.6 % (15.3-44.8); MPV 8.1 fL (7.6-11.3); RBC Red Blood Cell Count 3.21 M/uL (3.86-4.86)
[2021-03-22 21:45] LABS: Protime INR 0.96
[2021-03-22] MEDS ORDERED: MORPHINE 4 MG/ML SYR ONE (21:53)
[2021-03-22] MEDS ORDERED: HYDRALAZINE HCL 20 MG/ML VIAL ONE (21:53)
[2021-03-22] MEDS ORDERED: ONDANSETRON 4 MG/2 ML VIAL ONE (21:54)
[2021-03-22 22:01] LABS: ALT/SGPT 18 U/L (12-78); AST/SGOT 15 U/L (15-37); Albumin 3.3 g/dL (3.4-5.0); Alkaline Phosphatase 82 U/L (45-117); BUN Blood Urea Nitrogen 14 mg/dL (7-18); Bicarbonate 30 mmol/L (21-32); Bilirubin Direct 0.2 mg/dL (0-0.2); Bilirubin Total 0.8 mg/dL (0.2-1.0); Glucose Level 231 mg/dL (74-106); Magnesium 1.7 mg/dL (1.8-2.4); NT PRO-BNP 62 pg/mL (<125); Potassium 4.1 mmol/L (3.5-5.1); Protein, Total 6.9 g/dL (6.4-8.2); Sodium Level 140 mmol/L (136-145); Troponin (Emerg Dept Use Only) < 0.02 ng/mL (0.0-0.045)
--- NOTE | 2021-03-23 00:53 | ER ---
Nurse's Notes [facility] Name: Myriam Bryant Age: 65 yrs Sex: Female : 1955 Arrival Date: 03/22/2021 Time: 16:40 Bed 28 Private MD: Diagnosis: Atherosclerosis of [place] arteries of extremities with intermittent claudication, right leg Presentation: 03/22 17:06 Chief complaint: Patient's son or daughter states: brought her here about 1 - 2 months ca1 ago for the same thing. R foot pain, we were advised to see a vascular doctor but her appointment is on the of this month. She's been crying in pain today, she says the bottom of her foot is on fire and it's tingly and needles are poking her toes. Coronavirus screen: Client denies travel out of the [place] in the last 14 days. At this time, the client does not indicate any symptoms associated with coronavirus-19. Ebola Screen: Patient negative for fever greater than or equal to 101.5 degrees Fahrenheit, and additional compatible Ebola Virus Disease symptoms Patient denies exposure to infectious person. Patient denies travel to an Ebola-affected area in the 21 days before illness onset. No symptoms or risks identified at this time. Initial Sepsis Screen: Does the patient meet any 2 criteria? No. Patient's initial sepsis screen is negative. Does the patient have a suspected source of infection? No. Patient's initial sepsis screen is negative. Risk Assessment: Do you want to hurt yourself or someone else? Patient reports no desire to harm self or others. Onset of symptoms was March 22, 2021. 17:06 Method Of Arrival: Wheelchair ca1 17:06 Acuity: VALDEMAR 3 ca1 Triage Assessment: 21:00 General: Appears in no apparent distress. Behavior is calm, cooperative. iw Historical: - Allergies: 17:10 No Known Allergies; ca1 - PMHx: 17:10 Arthritis; Diabetes - NIDDM; Hyperlipidemia; ca1 - PSHx: 17:10 Hysterectomy; Cholecystectomy; ca1 - Immunization history:: Dung and Dung Pneumococcal vaccine is up to date, Flu vaccine is up to date. - Social history:: Smoking status: Patient denies any tobacco usage or history of. Screenin:57 Abuse screen: Denies threats or abuse. Denies injuries from another. Nutritional iw screening: No deficits noted. Tuberculosis screening: No symptoms or risk factors identified. Fall Risk None identified. Assessment: 21:57 Reassessment: Patient appears in no apparent distress at this time. Patient and/or iw family updated on plan of care and expected duration. Pain level reassessed. pt states she is feeling better after the norco, will hold morphine , call light within reach, son at bedside. 23:14 Reassessment: Patient appears in no apparent distress at this time. Patient and/or iw family updated on plan of care and expected duration. Pain level reassessed. Patient states feeling better. Patient states symptoms have improved. Vital Signs: 17:06 BP 173 / 74; Pulse 91; Resp 18 S; Temp 98(TE); Pulse Ox 100% on R/A; Pain 10/10; ca1 19:25 BP 200 / 79; Pulse 83; Resp 16; Pulse Ox 100% on R/A; Pain 10/10; jb4 21:46 BP 114 / 72; Pulse 61; Resp 16; Pulse Ox 98% on R/A; iw 23:14 BP 104 / 62; Pulse 60; Resp 16; Pulse Ox 98% on R/A; iw ED Course: 16:40 Patient arrived in ED. as 17:08 Triage completed. ca1 17:10 Arm band placed on right wrist. ca1 19:16 Guero Henderson MD is Attending Physician. tw4 20:45 Lower Extremity Artery Uni Ltd In Process Unspecified. EDMS 21:31 Maliha Mtz, RN is Primary Nurse. iw 21:40 Initial lab(s) drawn, by me. Inserted saline lock: 22 gauge in right antecubital area, iw using aseptic technique. Blood collected. 21:50 Patient has correct armband on for positive identification. iw 22:37 Lower Ext Angio In Process Unspecified. EDMS 23:48 Initiated transfer at [facility] with Lucinda Iqbal. Stated she would do a capacity check and tt3 call back. 03/23 00:00 No provider procedures requiring assistance completed. iw 00:04 Lucinda Iqbal called back and stated that 3 of the campuses are at capacity and the 4th [facility] campus does not have vascular services so the transfer request was denied. Information passed on to Dr. Henderson. 00:[address] [facility] with Bisi Quiroz. Stated she would do a capacity check tt3 and call back. 00:21 Bisi Quiroz called back and stated that all campuses were at capacity. Information passed tt3 on to Dr. Henderson. 00:23 Initiated transfer with [facility]. Transfer request was denied due to capacity. tt3 01:36 IV discontinued, intact, bleeding controlled, No redness/swelling at site. Pressure iw dressing applied. Administered Medications: 03/22 19:30 Drug: cloNIDine 0.1 mg Route: PO; jb4 19:30 Drug: [place] (HYDROcodone-acetaminophen) 5 mg-325 mg 1 tabs Route: PO; jb4 21:47 Not Given (Hemodynamic Parameters): hydrALAZINE 10 mg IV at bolus once iw Outcome: 03/23 00:53 Discharge ordered by . tw4 01:36 Discharged to home via wheelchair, with family. iw 01:36 Condition: good 01:36 Discharge instructions given to patient, family, Instructed on discharge instructions, follow up and referral plans. Demonstrated understanding of instructions, follow-up care. 01:37 Patient left the ED. iw Signatures: Dispatcher [employer] Nidhi Vega Irene, RN RN iw Collin Simpson RN RN jb4 Guero Henderson MD MD tw4 Liliya Hay RN Bon Cardoso tt3
--- NOTE | 2021-03-23 00:53 | EDPHYS ---
Physician Documentation [facility] Name: Myriam Bryant Age: 65 yrs Sex: Female : 1955 Arrival Date: 03/22/2021 Time: 16:40 Bed 28 Private MD: ED Physician Guero Henderson HPI: 03/23 06:07 This 65 yrs old Female presents to ER via Wheelchair with complaints of Foot tw4 Pain. 06:07 The patient presents with pain, that is chronic. The complaints affect the right foot. tw4 Context: The problem was sustained at home. Onset: The symptoms/episode began/occurred 1 month(s) ago. Onset: The symptoms/episode began/occurred and became persistent 2 days ago. Modifying factors: The symptoms are alleviated by nothing, the symptoms are aggravated by nothing. Severity of symptoms: At their worst the symptoms were moderate, in the emergency department the symptoms are unchanged. The patient has not experienced similar symptoms in the past. Historical: - Allergies: 03/22 17:10 No Known Allergies; ca1 - PMHx: 17:10 Arthritis; Diabetes - NIDDM; Hyperlipidemia; ca1 - PSHx: 17:10 Hysterectomy; Cholecystectomy; ca1 - Immunization history:: Dung and Dung Pneumococcal vaccine is up to date, Flu vaccine is up to date. - Social history:: Smoking status: Patient denies any tobacco usage or history of. ROS: 03/23 06:07 MS/extremity: Positive for pain, of the right leg. tw4 Constitutional: Negative for fever, chills, and weight loss, Eyes: Negative for injury, pain, redness, and discharge, Cardiovascular: Negative for chest pain, palpitations, and edema, Respiratory: Negative for shortness of breath, cough, wheezing, and pleuritic chest pain, Abdomen/GI: Negative for abdominal pain, nausea, vomiting, diarrhea, and constipation, Back: Negative for injury and pain, Skin: Negative for injury, rash, and discoloration, Neuro: Negative for headache, weakness, numbness, tingling, and seizure. MS/extremity: Positive for pain, swelling, tenderness. Exam: 06:07 Constitutional: This is a well developed, well nourished patient who is awake, alert, tw4 and in no acute distress. Head/Face: Normocephalic, atraumatic. Chest/axilla: Normal chest wall appearance and motion. Nontender with no deformity. No lesions are appreciated. Cardiovascular: Regular rate and rhythm with a normal S1 and S2. No gallops, murmurs, or rubs. Normal PMI, no JVD. No pulse deficits. Respiratory: Lungs have equal breath sounds bilaterally, clear to auscultation and percussion. No rales, rhonchi or wheezes noted. No increased work of breathing, no retractions or nasal flaring. Abdomen/GI: Soft, non-tender, with normal bowel sounds. No distension or tympany. No guarding or rebound. No evidence of tenderness throughout. Back: No spinal tenderness. No costovertebral tenderness. Full range of motion. Skin: Warm, dry with normal turgor. Normal color with no rashes, no lesions, and no evidence of cellulitis. Neuro: Awake and alert, GCS 15, oriented to person, place, time, and situation. Cranial nerves II-XII grossly intact. Motor strength 5/5 in all extremities. Sensory grossly intact. Cerebellar exam normal. Normal gait. 06:07 Musculoskeletal/extremity: Extremities: all appear grossly normal, with no appreciated pain with palpation, ROM: no acute changes, Perfusion: the extremity is pink, cool, noted to have sluggish capillary refill. Vital Signs: 03/22 17:06 BP 173 / 74; Pulse 91; Resp 18 S; Temp 98(TE); Pulse Ox 100% on R/A; Pain 10/10; ca1 19:25 BP 200 / 79; Pulse 83; Resp 16; Pulse Ox 100% on R/A; Pain 10/10; jb4 21:46 BP 114 / 72; Pulse 61; Resp 16; Pulse Ox 98% on R/A; iw 23:14 BP 104 / 62; Pulse 60; Resp 16; Pulse Ox 98% on R/A; iw MDM: 20:12 Patient medically screened. tw4 03/23 06:07 Differential diagnosis: fracture, sprain. Data reviewed: vital signs, nurses notes. tw4 Data reviewed: lab test result(s), CBC, electrolytes, radiologic studies, CT scan, ultrasound. Data interpreted: Pulse oximetry: Interpretation: normal. Counseling: I had a detailed discussion with the patient and/or guardian regarding: the historical points, exam findings, and any diagnostic results supporting the discharge/admit diagnosis. Counseling: I had a detailed discussion with the patient and/or guardian regarding: lab results, the need for outpatient follow up, VASCULAR SURGERY. Medication response: morphine relieved the patient's pain. Symptoms have resolved. Response to treatment: the patient's symptoms have markedly improved after treatment, and as a result, I will discharge patient. Special discussion: Based on the history and exam findings, there is no indication for further emergent testing or inpatient evaluation. VASCULAR SURGERY. 03/22 21:10 Order name: Basic Metabolic Panel; Complete Time: 22:26 tw03/22 22:26 Interpretation: Normal except: GLUC 231; GFR 84. tw03/22 21:10 Order name: CBC with Diff; Complete Time: 22:27 03/22 22:27 Interpretation: Normal except: RBC 3.21; HGB 9.8; HCT 27.7. 03/22 21:10 Order name: LFT's; Complete Time: :27 03/22 22:27 Interpretation: Normal except: ALB 3.3; GLOB 3.6; A/G 0.9. 03/22 21:10 Order name: Magnesium [facility] 03/22 21:10 Order name: NT PRO-BNP [facility] 03/22 21:10 Order name: PT-INR [facility] 03/22 19:30 Order name: Lower Extremity Artery Uni Ltd US; Complete Time: 21:01 tw03/22 21:03 Interpretation: Abnormal. [facility] 03/22 21:10 Order name: Troponin (emerg Dept Use Only) [facility] 03/22 21:30 Order name: Lower Ext Angio [facility] 03/22 21:10 Order name: Cardiac monitoring; Complete Time: 21:59 tw 03/22 21:10 Order name: IV Saline Lock; Complete Time: 21:32 tw 03/22 21:10 Order name: Labs collected and sent; Complete Time: 21:32 03/22 21:10 Order name: O2 Per Protocol; Complete Time: 21:47 tw03/22 21:10 Order name: O2 Sat Monitoring; Complete Time: 21:47 Administered Medications: 03/22 19:30 Drug: cloNIDine 0.1 mg Route: PO; 4 19:30 Drug: Silva (HYDROcodone-acetaminophen) 5 mg-325 mg 1 tabs Route: PO; jb4 21:47 Not Given (Hemodynamic Parameters): hydrALAZINE 10 mg IV at bolus once iw Disposition: 03/23/21 00:53 Discharged to Home. 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 - Condition is Stable. - Discharge Instructions: Intermittent Claudication, Peripheral Vascular Disease, [id number]. - Medication Reconciliation Form, Thank You Letter, Antibiotic Education, Prescription Opioid Use form. - Follow up: Private Physician; When: Upon discharge from the Emergency Department; Reason: Recheck today's complaints, Continuance of care, Re-evaluation by your physician. - Problem is an ongoing problem. - Symptoms have improved. Signatures: Dispatcher [employer] EDMaliha Youngblood RN RN Collin Simpson RN RN jb4 Guero Henderson MD MD tw4 Liliya Hay RN RN ca1 Corrections: (The following items were deleted from the chart) 19:28 19:16 Foot Right 3 View+RAD.RAD.BRZ ordered. EDWY EDWY 21:30 21:29 Pelvis Angio+CT.RAD.BRZ ordered. EDWY EDWY 03/23 01:37 00:53 03/23/2021 00:53 Discharged to Home. Impression: Atherosclerosis of ely [place] iw arteries of extremities with intermittent claudication, right leg. Condition is Stable. Forms are Medication Reconciliation Form, Thank You Letter, Antibiotic Education, Prescription Opioid Use. Follow up: Private Physician; When: Upon discharge from the Emergency Department; Reason: Recheck today's complaints, Continuance of care, Re-evaluation by your physician. Problem is an ongoing problem. Symptoms have improved. tw4
[2021-03-23 02:00] VITALS: TEMP 98
[2021-03-23 02:03] VITALS: O2SAT 98
[2021-03-23 02:04] VITALS: BP 104/62
--- NOTE | 2021-03-23 19:40 | RAD REPORT ---
EXAM DESCRIPTION: CT - Lower Ext Angio - 03/23/2021 7:07 am CLINICAL HISTORY: Need cta loer ext. COMPARISON: None. TECHNIQUE: CTA of the right lower extremity was performed following intravenous administration of io dinated contrast. Axial, coronal, and sagittal reconstructions were created and sent to PACS. 3D reconstructions were created on an independent workstation and sent to PACS for evaluation. This exam was performed according to our departmental dose-optimization program, which includes autom ated exposure control, adjustment of the mA and/or kV according to patient size and/or use of iterati ve reconstruction technique. FINDINGS: Vascular: Imaging begins at the level of the proximal thigh (superior to mid femoral arter y). Moderate mixed atherosclerosis of the superficial femoral artery. Extensive noncalcified plaque i n the distal popliteal artery with severe narrowing and preserved threadlike opacification to the lev el of the tibiofemoral joint, extending for approximately 1.4 cm in length. At this point, there is a short segment of nonopacification extending for approximately 0.5 cm. Reconstitution after this poin t. Moderate atherosclerosis in the peroneal tibial trunk. Complete occlusion of the mid to distal per schwartz artery, and nearly the entirety of the anterior tibial artery, with only the proximal most port ion opacified. The posterior tibial artery is patent to the level of the distal lower leg, after whic h it is not visualized. The dorsalis pedis artery is intermittently visualized. The posterior tibial artery at the level of the the ankle and foot is patent. Other: No concerning osseous abnormality. No fluid collections identified. IMPRESSION: 1. 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 2. 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 3. Posterior tibial artery is patent to the level of the distal lower leg, after which it is not vi sualized, with reconstitution at the level of the ankle and foot. 4. The dorsalis pedis artery is intermittently visualized. Electronically signed by: Mayelin Awad MD 03/22/2021 11:02 PM CDT Due to temporary technical issues with the PACS/Fluency reporting system, reports are being signed by the in house radiologists without review as a courtesy to insure prompt reporting. The interpreting radiologist is fully responsible for the content of the report.
== END 2021-03-23 01:37 | disposition home or self-care (01) ==
LOC: ER 16:36
DX: E11.51 Type 2 diabetes mellitus with diabetic peripheral angiopathy without gangrene (principal); I70.211 Atherosclerosis of native arteries of extremities with intermittent claudication, right leg; Z20.822 Contact with and (suspected) exposure to COVID-19; M19.90 Unspecified osteoarthritis, unspecified site; E78.5 Hyperlipidemia, unspecified
CPT/HCPCS: 85025; 80048; 36415; 83735; 85610; 80076; 84484; 83880; 73706; 93926; 99284; U0003; Q9967; J0360; J2405

== ENCOUNTER 2022-09-27 15:13 | Emergency (ER) | payer OTHER ==
--- OUTSIDE RECORDS SUMMARY | 2022-09-27 15:19 | XMS REPORT | Continuity of Care Document ---
:1955 Author Organization [facility] t Address [address] [place] [address] Care Team Providers Name Role Phone PCP, PATIENT DOES NOT HAVE A Primary Care Physician Unavaila Gloria Plunkett Attending Clinician Unavailable DIVYA RUVALCABA Attending Clinician Unavailable DIVYA CAM JR Attending Clinician Unavailable ANISA JACOB Attending Clinician Unavailable SIOBHAN PEREIRA Attending Clinician Unavailable Siobhan Pereira MD Attending Clinician Anderson Malave Attending Clinician ANDERSON WOODS Attending Clinician Unavailable Jonnie ARRIAGA Attending Clinician Unavailable Anisa Jacob MD Attending Clinician Divya Ruvalcaba MD Attending Clinician Doctor Unassigned, [place] Attending Clinician Unavailable Only, Adc Test Attending Clinician Unavailable Pob, Adc Lab Main Attending Clinician Unavailable Dorina Simental MD, Michael B Attending Clinician Veronica DIXON, Patricia Jean Baptiste Attending Clinician [phone] Yesenia Turner RN Attending Clinician Unavailable Jeyson HEWITT, Matt A Attending Clinician Unavailable Sun Elam S Attending Clinician DIVYA RUVALCABA Admitting Clinician Unavailable DIVYA CAM JR Admitting Clinician Unavailable ANISA JACOB Admitting Clinician Unavailable SIOBHAN PEREIRA Admitting Clinician Unavailable BARTJonnie Watters Admitting Clinician Unavailable Divya Ruvalcaba MD Admitting Clinician Dorina Simental MD, Michael B Admitting Clinician Anisa Jacob MD Admitting Clinician Payers Payer Name Policy Type Policy Number Effective Date Expiration Date S and[facility] [id number] 2021 MEDICARE 00:00:00 [facility] AARP [facility] [id number] 2020 [facility] ADVANTAGE 00:00:[address] [facility] MB [id number] 2020 [facility] NOVITAS 00:00:[address] - [facility] MEDICARE MB [id number] 2020 [facility] NOVITAS 00:00:00 - [facility] [id number] 2017 HEALTH CHOICE 00:00:00 Problems Condition Condition Condition Status Onset Resolution Last Treating Co mments Source Name Details Category Date Date Treatment Clinician Date Peripheral Peripheral Disease Active Overview : Univers arterial arterial 04-24 Formattin ity of disease disease 00:00: g of this [place] 00 note Medical might be Branch different from the original. Added automatic ally from request for surgery [id number] Neuropathy Neuropathy Disease Active Overview : Univers 5-25 Formattin ity of 00:00: g of this [place] 00 note Medical might be Branch different from the original. Added automatic ally from request for surgery [id number] PAD PAD Disease Active Univers (periphera (periphera 5 it y of l artery l artery 00:00: [place] disease) disease) 00 Medica l Branch Type 2 Type 2 Disease Active Univers diabetes diabetes 9-18 ity of mellitus mellitus 00:00: [place] with with 00 Medical complicati complicati Br anch on, on, without without long-term long-term current current use of use of insulin insulin Dyslipidem Dyslipidem Disease Active U nivers ia ia 9-18 ity of 00:00: [place] 00 [facility] Branch Elevated Elevated Disease Active Unive rs ALT ALT 08-18 ity of measure[place] [facility] [id number] Current Problem Active Common moderate Spirit episode of - [facility] major [facility] Center prior episode [id number] Chronic Problem Active Common fatigue [facility] [id number] Chronic Problem Active Commo n pain Spirit syndrome [facility] [id number] Skin Problem Active Common lesion [facility] [id number] Anemia, Problem Active Commo n unspecifie Spirit d type [facility] [id number] Nonintract Problem Active Com mon able Spirit headache, [facility] unspecie [facility] chronicity Medica l pattern, Center unspecifie d headache type [id number] Mixed Problem Active Common hyperlipid Spirit emia [facility] [id number] Uncontroll Problem Active Co mmon ed type 2 Spirit diabetes - CHI mellitus [facility] complicati Medica l on, Center without long-term current use of insulin [id number] Atheroscle Problem Active C ommon [id number] rosis of [facility] pechanga - [facility] artery of [facility] Center with intermitte nt claudicati on [id number] Polyarthra Problem Active Com mon lgia [facility] [id number] Abnormal Problem Active Commo n liver [facility] function [facility] [id number] Vitamin D Problem Active Comm on deficiency [facility] [id number] Essential Problem Active Comm on hypertensi Spirit on [facility] [id number] Gastroesop Problem Active Co mmon hageal Spirit reflux - [facility] presence Medica l not Center specified Allergies, Adverse Reactions, Alerts Allergy Allergy Status Severity Reaction(s) Onset Inactive Treating Comm ents Source Name Type Date Date Clinician NO KNOWN Drug Active Univers ALLERGIE Class ity of S [facility] Social History Social Habit Start Date Stop Date Quantity Comments Source History of [facility] - Tobacco Use [facility] Sex Assigned At [facility] gillian - [facility] Exposure to 2022-06-19 2022-06-29 Not sure University of SARS-CoV-2 00:00:00 20:04:[address] [facility] (event) Branch Tobacco use and 2021-04-06 2021-04-06 Smokeless tobacco Un iversity of exposure 00:00:00 00:00:00 non-user [facility] Smoking Status Start Date Stop Date Source Never Smoker [facility] - [facility] Medications Ordered Filled Start Stop Current Ordering Indication Dosage Frequency Signature Comments Components Source Medication Medication Date Date Medication? Clinician (SIG) Name Name Vitamin B12 Vitamin B12 No 1000ug Common (Cyanocobal (Cyanocobal 8-16 S pirit riggs) riggs) 00:00: - [facility] 00 [facility] NaCl 0.9% 2021- No 500mL at 999 Univ ers (NS) bolus 06-30 mL/hr, 500 it y of infusion 01:30: 04:00 mL, IV [place] 500 mL 00 :00 Infusion, Medical ONCE, 1 Branch dose, On 06/29/22 at 2030, STAT diphenhydrA 2021- No 25mg 25 mg, Uni vers MINE 06-30 Slow IV ity of (BENADRYL) 01:30: 01:48 Push, [place] injection 00 :00 ONCE, 1 Medical 25 mg dose, On Branch 06/29/22 at 2030, STAT metoclopram 2021- No 10mg 10 mg, Uni vers ana HCl 06-30 Slow IV ity of (REGLAN) 01:30: 01:48 Push, [place] injection 00 :00 ONCE, 1 Medical 10 mg dose, On Branch 06/29/22 at 2030, ZARI ondansetron Yes [id number] 4mg Take 1 Univers (ZOFRAN) 4 7-30 tablet by ity of mg tablet 00:00: mouth 00 every 8 Medical (eight) Branch hours as needed for Nausea and Vomiting (N/V). traMADoL Yes [id number] 50mg Take 1 Univers (ULTRAM) 50 7-30 tablet by ity of mg tablet 00:00: mouth 00 every 6 Medical (six) Branch hours as needed for Pain (scale 7-10). Indication s: acute pain butalbital- Yes [id number] 1{tbl} Take 1 Univers acetaminoph 7-30 tablet by ity of en-caff 00:00: mouth [place] 50-325-40 00 every 6 Medical mg tablet (six) Branch hours as needed (Headache) . butalbital- 2021- No [id number] 1{tbl} Take 1 Univers acetaminoph 7-30 07-30 tablet by it y of en-caff 00:00: 00:00 mouth [place] 50-325-40 00 :00 every 6 Medical mg tablet (six) Branch hours as needed (Headache) . Sertraline Sertraline No 1{table QD Sertraline HCl 25 MG HCl 25 MG 7-14 t} HCl 25 MG 00:00: 00 Sertraline Sertraline 0 No 1{table QD Sertraline HCl 25 MG HCl 25 MG 7-14 t} HCl 25 MG 00:00: 00 empaglifloz Yes 10mg Take 10 mg Univers in 6-30 by mouth ity of ([place]) 14:30: [place]. [place] 10 mg 22 Medical Branch DULoxetine Yes 1{capsu Take 1 Un parish 30 mg CDRS 6-30 le} capsule by ity of 14:30: mouth 2 [place] [address] (two) Medical times Branch daily. empaglifloz Yes 10mg Take 10 mg Univers in 6-30 by mouth ity of ([place]) 14:30: [place]. [place] 10 mg 22 Medical Branch DULoxetine Yes 1{capsu Take 1 Un parish 30 mg CDRS 6-30 le} capsule by ity of 14:30: mouth 2 [place] [address] (two) Medical times Branch daily. Jardiance Jardiance 0 2021- No 1{table QD Jardiance 10 MG 10 MG 6-15 07-15 t} 10 MG 00:00: 00:00 00 :00 pioglitazon 0 Yes 15mg Take 15 mg Univers e 15 mg 6-09 by mouth ity of tablet 16:17: daily. [place] 08 [facility] Branch gabapentin 2021-0 Yes 100mg Take 100 Un parish 100 mg 6-09 mg by ity of capsule 16:17: mouth 3 [place] [address] (three) Medical times [place] daily. lisinopriL 2021-0 Yes 10mg Take 10 mg U nivers 10 mg 6-09 by mouth ity of tablet 16:17: daily. [address] Branch rosuvastati 202-0 Yes 20mg Take 20 mg Univers n 20 mg 6-09 by mouth ity of tablet 16:17: at [place] [address] bedtime. Medical Branch pioglitazon 2021-0 Yes 15mg Take 15 mg Univers e 15 mg 6-09 by mouth ity of tablet 16:17: daily. [address] Branch gabapentin 2021-0 Yes 100mg Take 100 Un parish 100 mg 6-09 mg by ity of capsule 16:17: mouth 3 [place] [address] (three) [facility] times [place] daily. lisinopriL 2021-0 Yes 10mg Take 10 mg U nivers 10 mg 6-09 by mouth ity of tablet 16:17: daily. [address] Branch rosuvastati 2021-0 Yes 20mg Take 20 mg Univers n 20 mg 6-09 by mouth ity of tablet 16:17: at [place] [address] bedtime. Medical Branch glimepiride 0 Yes 4mg Take 4 mg U nivers 4 mg tablet 6-09 by mouth ity of 16:14: daily with [place] [address] breakfast. Medical Branch Insulin 0 Yes inject Univers Glargine 6-09 under the ity of (LANTUS 16:14: skin. [address] U-100 [place] INSULIN) 100 unit/mL (3 mL) injection metFORMIN 2021-0 Yes 1000mg Take 1,000 Univers 1,000 mg 6-09 mg by ity of tablet 16:14: mouth 2 [place] [address] (two) [facility] daily with meals. glimepiride 2021-0 Yes 4mg Take 4 mg U nivers 4 mg tablet 6-09 by mouth ity of 16:14: daily with [place] [address] breakfast. Medical Branch Insulin 0 Yes inject Univers Glargine 6-09 under the ity of (LANTUS 16:14: skin. [address] U-100 [place] INSULIN) 100 unit/mL (3 mL) injection metFORMIN 2021-0 Yes 1000mg Take 1,000 Univers 1,000 mg 6-09 mg by ity of tablet 16:14: mouth 2 [place] 17 (two) Medical times Branch daily with meals. diazePAM 5 diazePAM 5 No 1{table QD diazePAM 5 MG MG 2-25 t_as_ne MG 00:00: eded} 00 diazePAM 5 diazePAM 5 No 1{table QD diazePAM 5 MG MG 2-25 t_as_ne MG 00:00: eded} 00 diazePAM 5 diazePAM 5 No 1{table QD diazePAM 5 MG MG 2-25 t_as_ne MG 00:00: eded} 00 diazePAM 5 diazePAM 5 No 1{table QD diazePAM 5 MG MG 2-25 t_as_ne MG 00:00: eded} diazePAM 5 diazePAM 5 No 1{table QD diazePAM 5 MG MG 2-25 t_as_ne MG 00:00: eded} 00 DULoxetine DULoxetine No 1{capsu QD DULoxetine HCl 20 MG HCl 20 MG 2-22 le} HCl 20 MG 00:00: 00 DULoxetine DULoxetine No 1{capsu QD DULoxetine HCl 20 MG HCl 20 MG 2-22 le} HCl 20 MG 00:00: 00 DULoxetine DULoxetine No 1{capsu QD DULoxetine HCl 20 MG HCl 20 MG 2-22 le} HCl 20 MG 00:00: 00 dicyclomine 2020-12 Yes 200mg Take 200 U nivers HCl 1-11 mg by ity of (DICYCLOMIN 08:53: [place]. [place] E ORAL) 10 Medical Branch ergocalcife 2020-12 Yes [id number] Take Univ ers rol, 1-11 50,000 ity of vitamin d2, 08:53: [place] (VITAMIN 10 mouth Medical D2) 50,000 weekly. Branch unit capsule metFORMIN 2020-12 Yes 500mg Take 500 Uni vers 500 mg 1-11 mg by ity of tablet 08:53: mouth 2 [place] 10 (two) Medical times Branch daily with meals. meloxicam 2020-12 Yes 7.5mg Take 7.5 Uni vers 7.5 mg 1-11 mg by ity of tablet 08:53: mouth [place] 10 daily. Medical Branch pioglitazon 2020-12 Yes 30mg Take 30 mg Univers e 30 mg 1-11 by mouth ity of tablet 08:53: daily. [address] Branch dicyclomine 2020-12 Yes 200mg Take 200 U nivers HCl 1-11 mg by ity of (DICYCLOMIN 08:53: [place]. [place] E ORAL) [address] [place] [address] Branch ergocalcife 2020-12 Yes [id number] Take Univ ers rol, 1-11 50,000 ity of vitamin d2, 08:53: Units [place] (VITAMIN 10 mouth Medical D2) 50,000 weekly. Branch unit capsule metFORMIN 2020-12 Yes 500mg Take 500 Uni vers 500 mg 1-11 mg by ity of tablet 08:53: mouth 2 [place] [address] (two) Medical times Branch daily with meals. meloxicam 2020-12 Yes 7.5mg Take 7.5 Uni vers 7.5 mg 1-11 mg by ity of tablet 08:53: mouth [place] 10 daily. [facility] Branch pioglitazon 2020-12 Yes 30mg Take 30 mg Univers e 30 mg 1-11 by mouth ity of tablet 08:53: daily. [address] Rollator Rollator No Rollator walker n/s walker n/s 08-28 walker n/s 00:00: 00 Pioglitazon Pioglitazon 0 No 1{table QD Pioglitazo e HCl 30 MG e HCl 30 MG 9-21 t} ne HCl 30 00:00: MG 00 Pioglitazon Pioglitazon No 1{table QD Pioglitazo e HCl 30 MG e HCl 30 MG 9-21 t} ne HCl 30 00:00: MG 00 MINOCYCLINE 2020-0 Yes [id number] TAKE 1 Univers 100 mg 8-24 CAPSULE BY ity of capsule 00:00: MOUTH [place] 00 EVERY 12 Medical HOURS FOR Branch 7 DAYS MINOCYCLINE 2020-0 Yes [id number] TAKE 1 Univers 100 mg 8-24 CAPSULE BY ity of capsule 00:00: MOUTH [place] 00 EVERY 12 Medical HOURS FOR Branch 7 DAYS Contour Contour No Contour Next Test - Next Test - 06-26 Next Test 00:00: - 00 Contour Contour No Contour Next Test - Next Test - 06-26 Next Test 00:00: - 00 Contour Contour No Contour Next Test - Next Test - 06-26 Next Test 00:00: - 00 Contour Contour 2020-0 No Contour Next Test - Next Test - 06-26 Next Test 00:00: - 00 Contour Contour 2020-0 No Contour Next Test - Next Test - 06-26 Next Test 00:00: - 00 Contour Contour 2020-0 No Contour Next Test - Next Test - 06-26 Next Test 00:00: - 00 Contour Contour 2020-0 No Contour Next Test - Next Test - 06-26 Next Test 00:00: - 00 Contour Contour 2020-0 No Contour Next Test - Next Test - 06-26 Next Test 00:00: - 00 traMADoL 50 2020-0 Yes [id number] 50mg Take 1 Univ ers mg tablet 7-05 tablet by ity o f 00:00: mouth [place] 00 every 6 Medical (six) Branch hours as needed for Pain (scale 7-10). Indication s: acute pain traMADoL 50 2020-0 Yes [id number] 50mg Take 1 Univ ers mg tablet 7-05 tablet by ity o f 00:00: mouth [place] 00 every 6 Medical (six) Branch hours as needed for Pain (scale 7-10). Indication s: acute pain acetaminoph 2020-0 Yes [id number] 1{tbl} Take 1 Un parish en-codeine 6-30 tablet by ity of 300-30 mg 00:00: mouth [place] tablet 00 every 6 Medical (six) Branch hours as needed for Pain (scale 7-10) for up to 18 doses. Indication s: acute pain acetaminoph 2020-0 Yes [id number] 1{tbl} Take 1 Un parish en-codeine 6-30 tablet by ity of 300-30 mg 00:00: mouth [place] tablet 00 every 6 Medical (six) Branch hours as needed for Pain (scale 7-10) for up to 18 doses. Indication s: acute pain Pen [place] Pen [place] 2020-0 No QD Pen 5/16" 31G X 5/16" 31G X 5-27 [place] 8 MM 8 MM 00:00: 5/16" 31G 00 X 8 MM Lisinopril Lisinopril 2020-0 No 1{table QD Lisinopril 10 MG 10 MG 5-27 t} 10 MG 00:00: 00 Pen [place] Pen [place] 2020-0 No QD Pen 5/16" 31G X 5/16" 31G X 5-27 [place] 8 MM 8 MM 00:00: 04/15" 31G 00 X 8 MM Lisinopril Lisinopril 2021-0 No 1{table QD Lisinopril 10 MG 10 MG 5-27 t} 10 MG 00:00: 00 Pen [place] Pen [place] 2020-0 No QD Pen 04/15" 31G X 5/16" 31G X 5-27 [place] 8 MM 8 MM 00:00: 04/15" 31G 00 X 8 MM Lisinopril Lisinopril 2021-0 No 1{table QD Lisinopril 10 MG 10 MG 5-27 t} 10 MG 00:00: 00 Lisinopril Lisinopril 2021-0 No 1{table QD Lisinopril 10 MG 10 MG 5-27 t} 10 MG 00:00: 00 Pen [place] Pen [place] 2020-0 No QD Pen 04/15" 31G X 5/16" 31G X 5-27 [place] 8 MM 8 MM 00:00: 04/15" 31G 00 X 8 MM Pen [place] Pen [place] 2020-0 No QD Pen 04/15" 31G X 5/16" 31G X 5-27 [place] 8 MM 8 MM 00:00: 04/15" 31G 00 X 8 MM Lisinopril Lisinopril 2021-0 No 1{table QD Lisinopril 10 MG 10 MG 5-27 t} 10 MG 00:00: 00 Pen [place] Pen [place] 2020-0 No QD Pen 04/15" 31G X 5/16" 31G X 5-27 [place] 8 MM 8 MM 00:00: 04/15" 31G 00 X 8 MM Lisinopril Lisinopril 2021-0 No 1{table QD Lisinopril 10 MG 10 MG 5-27 t} 10 MG 00:00: 00 Pen [place] Pen [place] 2020-0 No QD Pen 04/15" 31G X 5/16" 31G X 5-27 [place] 8 MM 8 MM 00:00: 04/15" 31G 00 X 8 MM Lisinopril Lisinopril 2021-0 No 1{table QD Lisinopril 10 MG 10 MG 5-27 t} 10 MG 00:00: 00 Pen [place] Pen [place] 2020-0 No QD Pen 04/15" 31G X 5/16" 31G X 5-27 [place] 8 MM 8 MM 00:00: 516" 31G 00 X 8 MM Lisinopril Lisinopril No 1{table QD Lisinopril 10 MG 10 MG 5-27 t} 10 MG 00:00: 00 aspirin 81 2020-0 Yes [id number] 81mg Take 1 Univers mg chewable 5-08 tablet by ity of tablet 00:00: mouth [place] 00 daily. Medical Branch aspirin 81 0 Yes [id number] 81mg Take 1 Univers mg chewable 5-08 tablet by ity of tablet 00:00: mouth [place] 00 daily. Medical Branch atorvastati Yes 20mg Take 1 Univ ers n (LIPITOR) 9-24 tablet by ity of 20 mg 00:00: mouth at [place] tablet 00 bedtime. Medical Branch atorvastati Yes 20mg Take 1 Univ ers n (LIPITOR) 9-24 tablet by ity of 20 mg 00:00: mouth at [place] tablet 00 bedtime. Medical Branch Pioglitazon Pioglitazon Yes Kamala 1 tablet Common e HCl e HCl -07 [place] [facility] 00:00: - [facility] 00 [facility] Angie Hamia Yes Kamala 1 tablet Co mmon -06 [facility] 00:00: - [facility]I 00 [facility] Ondansetron Ondansetron Yes [place]ala 1 tablet Common HCl HCl 9-06 [place] as needed Spiri t 00:00: for - CHI 00 nausea/vom [facility] Lancets Lancets Yes Kamala as Common 5-10 [place] directed; Spiri t 00:00: dispense - CHI lancets [facility] to [facility] BL Blood BL Blood Yes Kamala As Comm on Glucose Glucose 5-10 [place] directed; Spirit Monitor Kit Monitor Kit 00:00: DISPENSE - CHI 00 BG MONITOR [facility] TO [facility] blood blood 2019- No Kamala as Common glucose glucose 5-10 08-03 [place] directed; Spirit test strip test strip 00:00: 00:00 DISPENSE - CHI 00 :[address] [facility] INSURANCE Glimepiride Glimepiride Yes Kamala 1 tablet Common [facility] Gabapentin Gabapentin Yes Kamala 1 capsule Common [place] [facility] Cyclobenzap Cyclobenzap Yes Kamala 1 tablet Common rine HCl rine HCl [place] as needed Spirit [facility] Mobic Mobic Yes Kamala 1 tablet Common [facility] [facility] Metformin Metformin Yes Kamala 1 tablet Common HCl HCl [place] with a Spirit meal [facility] Aspirin 81 Aspirin 81 No 1{table QD Aspirin 81 81 MG 81 MG t} 81 MG metFORMIN metFORMIN No 1{table metFORMIN HCl 1000 MG HCl 1000 MG t_with_ HCl 1000 a_meal} MG Rosuvastati Rosuvastati No 1{table QD Rosuvastat n Calcium n Calcium t} in Calcium 20 MG 20 MG 20 MG Glimepiride Glimepiride No 1{table BID Glimepirid 4 MG 4 MG t} e 4 MG Rollator Rollator No Rollator walker n/s walker n/s walker n/s Gabapentin Gabapentin No 2{capsu TID Gabapentin 100 MG 100 MG les} 100 MG metFORMIN metFORMIN No 1{table metFORMIN HCl 1000 MG HCl 1000 MG t_with_ HCl 1000 a_meal} MG Gabapentin Gabapentin No 2{capsu TID Gabapentin 100 MG 100 MG les} 100 MG Glimepiride Glimepiride No 1{table BID Glimepirid 4 MG 4 MG t} e 4 MG Rosuvastati Rosuvastati No 1{table QD Rosuvastat n Calcium n Calcium t} in Calcium 20 MG 20 MG 20 MG Rollator Rollator No Rollator walker n/s walker n/s walker n/s Aspirin 81 Aspirin 81 No 1{table QD Aspirin 81 81 MG 81 MG t} 81 MG Glimepiride Glimepiride No 1{table BID Glimepirid 4 MG 4 MG t} e 4 MG Gabapentin Gabapentin No 2{capsu TID Gabapentin 100 MG 100 MG les} 100 MG Rosuvastati Rosuvastati No 1{table QD Rosuvastat n Calcium n Calcium t} in Calcium 20 MG 20 MG 20 MG Aspirin 81 Aspirin 81 No 1{table QD Aspirin 81 81 MG 81 MG t} 81 MG metFORMIN metFORMIN No 1{table metFORMIN HCl 1000 MG HCl 1000 MG t_with_ HCl 1000 a_meal} MG Rollator Rollator No Rollator walker n/s walker n/s walker n/s Glimepiride Glimepiride No 1{table BID Glimepirid 4 MG 4 MG t} e 4 MG Rosuvastati Rosuvastati No 1{table QD Rosuvastat n Calcium n Calcium t} in Calcium 20 MG 20 MG 20 MG Gabapentin Gabapentin No 2{capsu TID Gabapentin 100 MG 100 MG les} 100 MG metFORMIN metFORMIN No 1{table metFORMIN HCl 1000 MG HCl 1000 MG t_with_ HCl 1000 a_meal} MG Aspirin 81 Aspirin 81 No 1{table QD Aspirin 81 81 MG 81 MG t} 81 MG Rollator Rollator No Rollator walker n/s walker n/s walker n/s DULoxetine DULoxetine No 1{capsu BID DULoxetine HCl 30 MG HCl 30 MG le} HCl 30 MG Rollator Rollator No Rollator walker n/s walker n/s walker n/s Aspirin 81 Aspirin 81 No 1{table QD Aspirin 81 81 MG 81 MG t} 81 MG Gabapentin Gabapentin No 2{capsu TID Gabapentin 100 MG 100 MG les} 100 MG DULoxetine DULoxetine No 1{capsu BID DULoxetine HCl 30 MG HCl 30 MG le} HCl 30 MG Glimepiride Glimepiride No 1{table BID Glimepirid 4 MG 4 MG t} e 4 MG metFORMIN metFORMIN No 1{table metFORMIN HCl 1000 MG HCl 1000 MG t_with_ HCl 1000 a_meal} MG Rosuvastati Rosuvastati No 1{table QD Rosuvastat n Calcium n Calcium t} in Calcium 20 MG 20 MG 20 MG DULoxetine DULoxetine No 1{capsu BID DULoxetine HCl 30 MG HCl 30 MG le} HCl 30 MG Aspirin 81 Aspirin 81 No 1{table QD Aspirin 81 81 MG 81 MG t} 81 MG Rollator Rollator No Rollator walker n/s walker n/s walker n/s Gabapentin Gabapentin No 2{capsu TID Gabapentin 100 MG 100 MG les} 100 MG Rosuvastati Rosuvastati No 1{table QD Rosuvastat n Calcium n Calcium t} in Calcium 20 MG 20 MG 20 MG metFORMIN metFORMIN No 1{table metFORMIN HCl 1000 MG HCl 1000 MG t_with_ HCl 1000 a_meal} MG Glimepiride Glimepiride No 1{table BID Glimepirid 4 MG 4 MG t} e 4 MG metFORMIN metFORMIN No 1{table metFORMIN HCl 1000 MG HCl 1000 MG t_with_ HCl 1000 a_meal} MG Glimepiride Glimepiride No 1{table BID Glimepirid 4 MG 4 MG t} e 4 MG Rosuvastati Rosuvastati No 1{table QD Rosuvastat n Calcium n Calcium t} in Calcium 20 MG 20 MG 20 MG Aspirin 81 Aspirin 81 No 1{table QD Aspirin 81 81 MG 81 MG t} 81 MG Gabapentin Gabapentin No 2{capsu TID Gabapentin 100 MG 100 MG les} 100 MG metFORMIN metFORMIN No 1{table metFORMIN HCl 1000 MG HCl 1000 MG t_with_ HCl 1000 a_meal} MG Rollator Rollator No Rollator walker n/s walker n/s walker n/s Glimepiride Glimepiride No 1{table BID Glimepirid 4 MG 4 MG t} e 4 MG Rosuvastati Rosuvastati No 1{table QD Rosuvastat n Calcium n Calcium t} in Calcium 20 MG 20 MG 20 MG Aspirin 81 Aspirin 81 No 1{table QD Aspirin 81 81 MG 81 MG t} 81 MG Gabapentin Gabapentin No 2{capsu TID Gabapentin 100 MG 100 MG les} 100 MG Jardiance Jardiance 2021- No 1{table QD Jardiance 25 MG 25 MG 12-14 t} 25 MG 00:00 :00 Jardiance Jardiance 2- No 1{table QD Jardiance 10 MG 10 MG 11-11 t} 10 MG 00:00 :00 Immunizations Ordered Filled Immunization Date Status Comments Sourc e Immunization Name Name FLUZONE HIGH DOSE FLUZONE HIGH DOSE 2021-10-16 Completed [facility] - OVER 65 OVER 65 14:11:00 [facility] FLUZONE HIGH DOSE FLUZONE HIGH DOSE 2021-10-16 Completed [facility] - OVER 65 OVER 65 14:11:00 [facility] FLUZONE HIGH DOSE FLUZONE HIGH DOSE 2021-10-16 Completed [facility] - OVER 65 OVER 65 14:11:00 [facility] FLUZONE HIGH DOSE FLUZONE HIGH DOSE 2021-10-16 Completed [facility] - OVER 65 OVER 65 14:11:00 [facility] FLUZONE HIGH DOSE FLUZONE HIGH DOSE 2021-10-16 Completed [facility] - OVER 65 OVER 65 14:11:00 [facility] FLUZONE HIGH DOSE FLUZONE HIGH DOSE 2021-10-16 Completed [facility] - OVER 65 OVER 65 14:11:00 [facility] FLUZONE HIGH DOSE FLUZONE HIGH DOSE 2021-10-16 Completed [facility] - OVER 65 OVER 65 14:11:00 [facility] COVID-19 Vaccine COVID-19 Vaccine 2021-02-19 Completed [facility] - (Brett) (Brett) 14:31:00 [facility] COVID-19 Vaccine COVID-19 Vaccine 2021-02-19 Completed [facility] - (Brett) (Brett) 14:31:00 [facility] COVID-19 Vaccine COVID-19 Vaccine 2021-02-19 Completed [facility] - (Brett) (Brett) 14:31:00 [facility] COVID-19 Vaccine COVID-19 Vaccine 2021-02-19 Completed [facility]mon [facility] - (Brett) (Brett) 14:31:00 [facility] COVID-19 Vaccine COVID-19 Vaccine 2021-02-19 Completed Co [facility]mon [facility] - (Brett) (Brett) 14:31:00 [facility] COVID-19 Vaccine COVID-19 Vaccine 2021-02-19 Completed [facility] (Brett) (Brett) 14:31:00 [facility] COVID-19 Vaccine COVID-19 Vaccine 2021-02-19 Completed [facility] (Brett) (Brett) 14:31:00 [facility] COVID-19 Vaccine COVID-19 Vaccine 2021-02-19 Completed [facility] - (Brett) (Brett) 14:31:00 [facility] SARS-COV-2 COVID-19 2021-02-19 Completed Unive rsity of BRETT/J&J VACCINE 00:00:00 [facility] SARS-COV-2 COVID-19 2021-02-19 Completed Unive rsity of BRETT/J&J VACCINE 00:00:00 [facility] Vital Signs Vital Name Observation Time Observation Value Comments Source height 2022-07-16 13:00:00 56 [in_i] Common [facility] weight 2022-07-16 13:00:00 97.8 [lb_av] [facility] temperature 2022-07-16 13:00:00 98.2 [degF] [facility] bmi 2022-07-16 13:00:00 21.92 kg/m2 [facility] oximetry 2022-07-16 13:00:00 100 % [facility] respiratory rate 2022-07-16 13:00:00 16 /min Comm on [facility] blood pressure 2022-07-16 13:00:00 138 mm[Hg] Common [facility] - systolic [facility] blood pressure 2022-07-16 13:00:00 88 mm[Hg] Common [facility] diastolic [facility] Systolic blood 2022-06-30 04:00:00 149 mm[Hg] Univer sity of [facility] Diastolic blood 2022-06-30 04:00:00 61 mm[Hg] Unive rsity [facility] Heart rate 2022-06-30 04:00:00 92 /min [facility] Respiratory rate 2022-06-30 04:00:00 18 /min [facility] Oxygen saturation in 2022-06-30 04:00:00 98 /min [facility] Arterial blood by [facility] Pulse oximetry Branch Body temperature 2022-06-30 01:07:00 38.22 [facility] Body height 2022-06-30 01:07:00 144.8 cm [facility] Body weight 2022-06-30 01:07:00 47.174 kg [facility] BMI 2022-06-30 01:07:00 22.51 kg/m2 [facility] height 2022-06-13 13:00:00 [facility] weight 2022-06-13 13:00:00 98.6 [lb_av] [facility] temperature 2022-06-13 13:00:00 97.2 [degF] Common [facility] bmi 2022-06-13 13:00:00 22.1 kg/m2 Common S [facility] oximetry 2022-06-13 13:00:00 97 % Common [facility] respiratory rate 2022-06-13 13:00:00 16 /min Comm on [facility] - [facility] blood pressure 2022-06-13 13:00:00 136 mm[Hg] [facility] - systolic [facility] blood pressure 2022-06-13 13:00:00 69 mm[Hg] Common [facility] - diastolic [facility] Systolic blood 2022-05-30 19:32:00 140 mm[Hg] Univer sity of [facility] Diastolic blood 2022-05-30 19:32:00 75 mm[Hg] Unive rsity of [facility] Heart rate 2022-05-30 19:30:00 71 /min [facility] Body temperature 2022-05-30 19:30:00 37.06 [facility] Body height 2022-05-30 19:30:00 147.3 cm [facility] Body weight 2022-05-30 19:30:00 43.999 kg [facility] BMI 2022-05-30 19:30:00 20.27 kg/m2 [facility] Oxygen saturation in 2022-05-30 19:30:00 100 /min [facility] blood by [facility] Pulse oximetry Branch height 2022-05-15 13:00:00 57 [in_i] Common [facility] weight 2022-05-15 13:00:00 99.8 [lb_av] [facility] temperature 2022-05-15 13:00:00 98.4 [degF] Common [facility] bmi 2022-05-15 13:00:00 21.59 kg/m2 [facility] oximetry 2022-05-15 13:00:00 96 % Common S pirit - [facility] respiratory rate 2022-05-15 13:00:00 16 /min Comm on [facility] - [facility] blood pressure 2022-05-15 13:00:00 164 mm[Hg] [facility] - systolic [facility] blood pressure 2022-05-15 13:00:00 76 mm[Hg] [facility] - diastolic [facility] height 2022-01-22 15:40:00 57 [in_i] Common S pirit - [facility] weight 2022-01-22 15:40:00 110 [lb_av] Common S pirit - [facility] temperature 2022-01-22 15:40:00 97.2 [degF] Common S pirit [facility] bmi 2022-01-22 15:40:00 23.80 kg/m2 [facility] oximetry 2022-01-22 15:40:00 98 % Common S pirit - [facility] blood pressure 2022-01-22 15:40:00 138 mm[Hg] [facility] - systolic [facility] blood pressure 2022-01-22 15:40:00 74 mm[Hg] [facility] - diastolic [facility] height 2022-01-22 16:00:00 57 [in_i] Common S pirit [facility] weight 2022-01-22 16:00:00 110 [lb_av] Common S pirit - [facility] temperature 2022-01-22 16:00:00 97.2 [degF] Common S pirit [facility] bmi 2022-01-22 16:00:00 23.80 kg/m2 Common S pirit [facility] oximetry 2022-01-22 16:00:00 98 % Common S pirit - [facility] blood pressure 2022-01-22 16:00:00 138 mm[Hg] [facility] - systolic [facility] blood pressure 2022-01-22 16:00:00 74 mm[Hg] [facility] - diastolic [facility] height 2021-10-16 13:40:00 57 [in_i] [facility] weight 2021-10-16 13:40:00 109.4 [lb_av] [facility] temperature 2021-10-16 13:40:00 98.2 [degF] [facility] bmi 2021-10-16 13:40:00 23.67 kg/m2 [facility] oximetry 2021-10-16 13:40:00 99 % [facility] respiratory rate 2021-10-16 13:40:00 16 /min Comm on [facility] blood pressure 2021-10-16 13:40:00 140 mm[Hg] [facility] systolic [facility] blood pressure 2021-10-16 13:40:00 76 mm[Hg] [facility] diastolic [facility] height 2021-08-21 14:40:00 57 [in_i] [facility] weight 2021-08-21 14:40:00 112.4 [lb_av] [facility] temperature 2021-08-21 14:40:00 97.0 [degF] [facility] bmi 2021-08-21 14:40:00 24.32 kg/m2 [facility] oximetry 2021-08-21 14:40:00 98 % [facility] respiratory rate 2021-08-21 14:40:00 16 /min Comm on [facility] Procedures Procedure Date / Time Performing Clinician Source Performed URINALYSIS 2022-06-30 03:06:00 Siobhan Pereira [facility] CT HEAD WO CONTRAST 2022-06-30 01:47:00 Siobhan Pereira [facility] LIPASE 2022-06-30 01:32:00 Siobhan Pereira [facility] TROPONIN I 2022-06-30 01:32:00 Siobhan Pereira [facility] COMP. METABOLIC PANEL 2022-06-30 01:32:00 Siobhan Pereira [facility] ([id number]) Medical Branch CBC WITH DIFF 2022-06-30 01:32:00 Siobhan Pereira [facility] PROTHROMBIN TIME / INR 2022-06-30 01:32:00 Siobhan Pereira [facility] COVID-19 (ID NOW RAPID 2022-06-30 01:32:00 Siobhan Pereira [facility] TESTING) Medical Branch CONSENT/REFUSAL FOR 2022-06-30 00:48:26 Doctor Unassigned, No Un [facility] DIAGNOSIS AND TREATMENT Name Medical Branch Encounters Start End Encounter Admission Attending Care Care Encounter Source Date/Time Date/Time Type Type Clinicians Facility Department ID 2022-08-12 [place] STLMLC STLMLC [id number] Common 13:25:00 Gloria [facility] 2022-07-12 [place], STLMLC STLMLC [id number] Common 09:03:00 Gloria [facility] 2021-12-26 Out[place], STLMLC STLMLC [id number] Common 14:35:38 Gloria [facility] 2021-12-26 Outpatient [place], STLMLC STLMLC [id number] Common 14:07:57 Gloria 92639 [facility] 2021-12-26 Outpatient [place], STLMLC STLMLC [id number] Common 13:58:41 Gloria 21241 [facility] 2021-12-26 Out[place], STLMLC STLMLC [id number] Common 13:26:23 Gloria 14137 [facility] 2021-12-26 Outpatient [place], STLMLC STLMLC [id number] Common 13:07:52 Gloria 33729 [facility] 2021-12-26 Outpatient [place], STLMLC STLMLC [id number] Common 12:46:22 Gloria 46923 [facility] 2021-12-26 Outpatient [place], STLMLC STLMLC [id number] Common 12:45:46 Gloria 77240 [facility] 2021-12-26 Outpatient [place], STLMLC STLMLC [id number] Common 12:43:16 Gloria 66996 [facility] 2021-12-26 Outpatient [place], STLMLC STLMLC [id number] Common 12:42:46 Gloria 01717 [facility] 2021-12-26 Outpatient [place], STLMLC STLMLC [id number] Common 12:41:53 Gloria 92114 [facility] 2021-12-26 Outpatient [place], STLMLC STLMLC [id number] Common 12:41:21 Gloria 67955 [facility] 2021-12-26 Outpatient STLMLC STLMLC [id number] Common 12:25:33 45921 [facility] 2021-10-02 Outpatient Debra RUVALCABA [facility] OPH [id number] Univers 03:38:45 DIVYA [facility] 2021-10-01 [facility] [id number] Univers 02:10:08 DIVYA [facility] 2021-09-30 [facility] [id number] Univers 21:11:03 ANISA schmid [facility] 2021-09-30 Emergency [facility] [id number] Univers 17:40:10 [facility]22-12-24 2022-12-24 Outpatient R NIDIA [facility] [id number] Univers 09:00:00 09:00:00 ANISA schmid o f [facility] 2022-07-16 2022-07-16 OFFICE STLMLC STLC [id number] Co mmon 00:00:00 00:00:00 VISIT [facility] LEVEL 4 [facility] 2022-06-29 2022-06-29 Emergency X [facility] ERT [id number] Univers 19:58:00 23:22:00 SIOBHAN schmid [facility] 2022-06-29 2022-06-29 Emergency [place], [facility] [id number] [id number] Univers 19:58:00 23:22:00 Siobhan ADAMS 350.1.13.10 ity of [place].2.7.2.686 [place] [facility] [id number] [place] [id number] [place] 2022-06-13 2022-06-13 OFFICE STLMLC STLMLC [id number] Co mmon 00:00:00 00:00:00 VISIT Spirit ESTAB PT - CHI LEVEL 4 [facility] 2022-05-30 2022-05-30 Office [place], [facility] 1.2.840.114 [id number] Univers 15:00:00 15:30:00 Visit Anderson R Y HEALTH 350.1.13.10 ity of [facility] 4.2.7.2.686 [place] [id number] [address] 2022-05-30 2022-05-30 Outpatient R PEGGY, [facility] [id number] Univers 15:00:00 15:00:00 ANDERSON ity of [facility] 2022-05-30 2022-05-30 Outpatient R WOODS, [facility] [id number] Univers 13:01:05 13:00:00 ANDERSON ity [facility] 2022-05-15 2022-05-15 OFFICE STLMLC STLMLC [id number] Co mmon 00:00:00 00:00:00 VISIT Spirit ESTAB PT - CHI LEVEL 4 [facility] 2022-05-09 2022-05-09 Outpatient R PEGGY, [facility] [id number] Univers 16:00:00 16:47:57 ANDERSON ity [facility] 2022-05-09 2022-05-09 Office [place], [facility] 1.2.840.114 [id number] Univers 16:00:00 16:47:57 Visit Anderson R Y HEALTH 350.1.13.10 ity of [facility] 4.2.7.2.686 [place] [id number] [address] 2022-04-28 2022-04-29 Emergency X Jonnie ARRIAGA [facility] ERT [id number] Univers 23:27:00 03:35:00 ity of [facility] 2022-02-05 2022-02-05 [id number] Univers 14:00:00 14:00:00 ANDERSON ity [facility] 2022-01-25 2022-01-25 (TEL) STLMLC STLMLC [id number] Co mmon 00:00:00 00:00:00 Spirit - CHI [facility] 2022-01-22 2022-01-22 OFFICE STLMLC STLMLC [id number] Co mmon 00:00:00 00:00:00 VISIT Spirit ESTAB PT - CHI LEVEL 4 [facility] 2022-01-22 2022-01-22 SUB ANNUAL STLMLC STLMLC [id number] Common 00:00:00 00:00:00 MCR Spirit WELLNESS - CHI VISIT [facility] 2022-01-10 2022-01-10 Outpatient [facility] [id number] Univers 00:00:00 00:00:00 ANDERSON ity [facility] 2021-12-08 2021-12-08 [facility] 1.2.840.114 [id number] Univers 00:00:00 00:00:00 Anisa Y ELMER 350.1.13.10 ity of [facility] 4.2.7.2.[place] [id number] [address] 2021-10-16 2021-10-16 OFFICE STLMLC STLMLC [id number] Co mmon 00:00:00 00:00:00 VISIT Spirit ESTAB PT - CHI LEVEL 4 [facility] 2021-10-11 2021-10-11 [facility] 1.2.840.114 [id number] Univers 06:36:00 08:50:00 Encounter Divya ADAMS 350.1.13.10 ity of [place].2.[place].2.686 [place] [id number] [address] 2021-10-11 2021-10-[address] [facility]PH [id number] Univers 06:36:00 08:50:00 DIVYA schmid [facility] 2021-10-11 2021-10-11 Surgery [facility] 1.2.840.114 [id number] Univers 08:00:00 08:34:00 Divya ADAMS 350.1.13.10 i ty of [place].2.7.2.686 [place]ICAL [id number] [facility] 020 Branch 2021-10-09 2021-10-09 [facility] [id number] Univers 11:30:00 11:30:00 DIVYA itryland [facility] 2021-10-08 2021-10-08 Orders Doctor MARTIN 1.2.840.114 [id number] Univers 00:00:00 00:00:00 Only Unassigned, PRASAD 350.1.13.10 ity of [place] [facility] 4.2.7.2.686 Oneal as [id number] [facility] 009 Branch 2021-09-13 2021-09-13 [facility] 1.2.840.114 [id number] Univers 07:19:00 10:06:00 Encounter Divya Adams 350.1.13.10 ity of [place] 4[place]2.7.2.[place] Surgical [id number] [facility] 071 Branch 2021-09-13 2021-09-13 Surgery [facility] 1.2.840.114 [id number] Univers 09:14:00 09:51:00 Divya Adasm 350.1.13.10 i ty of [place] 4.2.7.2.686 [place] Surgical [id number] [facility] 020 Branch 2021-09-11 2021-09-11 Out[facility] [id number] Univers 15:00:00 15:00:00 DIVYA schmid [facility] 2021-09-11 2021-09-11 Laboratory Only, Adc Test [facility] 1.2.840. 114 [id number] Univers 13:57:39 14:12:39 Only Divya Ruvalcaba 350.1.1 3.10 ity of [place] 4[place]2.7.2.686 [place] [id number] [facility] 353 Branch 2021-09-10 2021-09-10 Orders Doctor MARTIN 1.2.840.114 [id number] Univers 00:00:00 00:00:00 Only Unassigned, PRASAD 350.1.13.10 ity of [place] [facility] 4.2.7.2.686 Oneal as [id number] [facility] 009 Branch 2021-09-04 2021-09-04 Drosophere Operator Shayla, [facility] 1.2.8 40.114 [id number] Univers 16:12:51 16:27:51 Visit Divya Ruvalcaba 350.1.1 3.10 ity of [place] 4.2.7.2.686 [place] Profess[place] [id number] Ri dical [facility] 353 [facility] 2021-09-04 2021-09-04 Outpatient R JORDON, [facility] [id number] Univers 16:15:00 16:15:00 DIVYA [place] of [facility] 2021-08-21 2021-08-21 [facility] [facility] [id number] Co mmon 00:00:00 00:00:00 VISIT Spirit ESTAB PT - CHI LEVEL 4 [facility] 2021-07-12 2021-07-12 Kashif [place], [facility] 1.2.840.114 [id number] Univers 00:00:00 00:00:00 Anderson R Y HEALTH 350.1.13.10 ity of CL[place] 4.2.7.2.[place] [id number] [facility] 205 [place] 2021-07-10 2021-07-10 Office Peggy, [facility]ERS[facility] 1.2.840.114 [id number] Univers 13:10:23 13:40:23 Visit Anderson R Y HEALTH 350.1.13.10 ity of CL[place] 4.2.[place].2.[place] [id number] [address] 2021-07-10 2021-07-10 Outpatient R PEGGY, [facility] [id number] Univers 13:00:00 13:00:00 ANDERSON ity of [facility] 2021-06-19 2021-06-19 Office Peggy, [facility] 1.2.840.114 [id number] Univers 11:57:23 13:30:49 Visit Anderson R Y HEALTH 350.1.13.10 ity of CL[place] 4.2.[place].2.[place] [id number] [address] 2021-06-19 2021-06-19 [facility] [id number] Univers 00:00:00 00:00:00 ANDERSON ity of [facility] 2021-06-13 2021-06-13 Case Peggy, [facility] 1.2.840.114 [id number] Univers 00:00:00 00:00:00 Management Anderson R Y HEALTH 350.1.13.10 ity of [place] 4[place]2.7.2.[place] [id number] [address] 2021-06-12 2021-06-12 [facility] [id number] Univers 00:00:00 00:00:00 ANDERSON ity of [facility] 2021-06-05 2021-06-05 Orders Doctor SALAZAR 1.2.840.114 [id number] Univers 00:00:00 00:00:00 Only Unassigned, PRASAD 350.1.13.10 ity of [place] [facility] 4.2.7.2.686 Oneal as [id number] [address] 2021-06-04 2021-06-04 Sulaiman [place], [facility] 1.2.840.114 [id number] Univers 00:00:00 00:00:00 Management Anisa Y HEALTH 350.1.13.10 ity of CL[place] 4[place].2.[place] [id number] [address] 2021-05-30 2021-05-30 Office [place], [facility] 1.2.840.114 [id number] Univers 10:39:57 11:52:22 Visit Anderson R Y HEALTH 350.1.13.10 ity of [place] 4[place].2.[place] [id number] [address] 2021-05-30 2021-05-30 [facility] [id number] Univers 11:00:00 11:00:00 ANDERSON ity of [facility] Branch 2021-05-29 2021-05-29 Telephone PAYTON [facility] 1.2.840.114 [id number] Univers 00:00:00 00:00:00 Divya PAYNE 350.1.13.10 ity of CLIN[place] 4.2.7.2.[place] [id number] [facility] 205 Branch 2021-05-28 2021-05-28 Hospital [facility] 1.2.840.114 [id number] Univers 07:28:00 16:00:00 Encounter Divya Doe 350.1.13.10 ity of Hospital 4.2.7.2.686 Oneal as [id number] [facility] 104 Branch 2021-05-28 2021-05-28 Surgery [place] 1.2.840.114 [id number] Univers 10:27:00 12:52:00 Divya Doe 350.1.13.10 ity of Hospital 4.2.7.2.686 Oneal as [id number] [facility] 103 Branch 2021-05-28 2021-05-28 Orders Doctor SALAZAR 1.2.840.114 [id number] Univers 00:00:00 00:00:00 Only Unassigned, PRASAD 350.1.13.10 ity of [place] [facility]PITAL 4.2.7.2.686 Oneal as [id number] [facility] 009 Branch 2021-05-17 2021-05-17 [facility] 1.2.840.0 [id number] Univers 14:18:00 19:15:00 Encounter Anisa 04727.1.1 i ty of 3.104.2.7 [place] .3.901765 Medica l .8 Branch 2021-05-17 2021-05-17 Anesthesia aPtricia [place] 1.2.840. 4 [id number] Univers 18:49:43 18:49:43 Event Yesenia Turner 10557.1.1 ity of 3.104.2.7 [place] .3.459661 Medica l .8 Branch 2021-05-17 2021-05-17 Orders Doctor MARTIN 1.2.840.114 [id number] Univers 00:00:00 00:00:00 Only Unassigned, PRASAD 350.1.13.10 ity of [place] [facility] 4.2.7.2.686 Oneal as [id number] [facility] 009 [place] 2021-05-14 2021-05-14 Travel 1.2.840.1 1.2.945.374 [id number] Univers 00:00:00 00:00:00 65205.1.1 350.1.13.10 ity of 3.104.2.7 4.[place].7.3.698 [place] .3.128765 084.8 Medica l .8 [place] 2021-04-26 2021-04-26 [facility] [id number] Common 00:00:00 00:00:00 [facility] 2021-04-24 2021-04-24 Office David Jacob2.840.3 [id number] [facility] 08:26:32 09:33:54 Visit Anisa 83974.1.1 ity of 3.104.2.7 [place] .3.741202 Medica l .8 [place] 2021-04-24 2021-04-24 Outpatient R NIDIA [facility] [id number] Univers 08:30:00 08:30:00 ANISA schmid o f [facility] 2021-04-24 2021-04-24 Travel 1.2.840.1 1.2.525.734 [id number] Univers 00:00:00 00:00:00 06186.1.1 350.1.13.10 ity of 3.104.2.7 4.[place].7.3.698 [place] .3.331232 084.8 Medica l .8 Branch 2021-04-18 2021-04-18 Orders Doctor 1.2.840.5 [id number] Univers 00:00:00 00:00:00 Only Unassigned, 10661.1.1 ity of [place] 3.104.2.7 [place] .3.870891 Medica l .8 Branch 2021-04-09 2021-04-09 Transition Jeyson, 1.2.840.2 [id number] Univers 00:00:00 00:00:00 of Care Matt Cervantes 63268.1.1 it y of 3.104.2.7 [place] .3.464394 Medica l .8 [place] 2021-04-05 2021-04-06 [facility] [id number] Univers 22:55:00 19:15:00 ANISA grullon [facility] 2021-04-05 2021-04-06 Emergency TriplettErnesto kwongya S 1.2.840.1 [id number] Univers 22:55:00 19:15:00 Anisa Jacob 08013.1.1 ity of 3.104.2.7 [place] .3.348201 Medica l .8 [place] 2021-04-05 2021-04-05 Travel 1.2.840.1 1.2.256.704 [id number] Univers 00:00:00 00:00:00 34093.1.1 350.1.13.10 ity of 3.104.2.7 4.[place].7.3.698 [place] .3.675654 084.8 Medica l .8 [place] 2021-04-03 2021-04-03 [facility] [id number] Univers 10:15:00 10:15:00 ANISA grullon [facility] 2021-03-30 2021-03-30 Office Irma Jacob.2.840.4 [id number] Univers 08:57:04 10:41:55 Visit Anisa 92390.1.1 ity of 3.104.2.7 [place] .3.559352 Medica l .8 [place] 2021-03-30 2021-03-30 Outpatient [facility]U [facility] [id number] Univers 09:00:00 09:00:00 ANISA grullon [facility] 2021-03-30 2021-03-30 Orders Doctor 1.2.840.3 [id number] Univers 00:00:00 00:00:00 Only Unassigned, 39348.1.1 ity of [place] 3.104.2.7 [place] .3.523637 Medica l .8 Branch 2021-03-30 2021-03-30 Travel 1.2.840.1 1.2.169.275 [id number] Univers 00:00:00 00:00:00 47998.1.1 350.1.13.10 ity of 3.104.2.7 4.2.7.3.698 [place] .3.389979 084.8 Medica l .8 Branch 2021-03-15 2021-03-15 Orders Doctor MARTIN 1.2.840.114 [id number] 00:00:00 00:00:00 Only Unassigned, PRASAD 350.1.13.10 [place] [facility] 4.2.7.2.686 [id number] 009 2021-03-15 2021-03-15 Orders Doctor 1.2.840.4 [id number] Univers 00:00:00 00:00:00 Only Unassigned, 43330.1.1 ity of [place] 3.104.2.7 [place] .3.939087 Medica l .8 [place] 2021-02-26 2021-02-[address] [facility] [id number] Common 00:00:00 00:00:00 [facility] 2021-02-19 2021-02-[address] [facility] [id number] Common 00:00:00 00:00:00 [facility] 2021-02-19 2021-02-19 Orders Doctor MARTIN 1.2.840.114 [id number] Univers 00:00:00 00:00:00 Only Unassigned, PRASAD 350.1.13.10 ity of [place] [facility] 4.2.7.2.686 Oneal as [id number] [facility] 009 Branch 2021-02-16 2021-02-16 Outpatient STLC STLC [id number] Common 00:00:00 00:00:00 [facility] 2021-02-15 2021-02-15 Outpatient STLMLC STLMLC [id number] Common 00:00:00 00:00:00 [facility] 2019-01-21 2019-01-21 [facility] [id number] Common 10:45:00 10:45:[address] [facility] 2019-01-14 2019-01-14 [facility] [id number] Common 13:44:00 13:44:[address] [facility] 2018-08-07 2018-08-07 [facility] [id number] Common 11:01:00 11:01:[address] [facility] 2018-08-06 2018-08-06 [facility] [id number] Common 15:30:00 15:30:[address] [facility] 2018-07-13 2018-07-13 [facility] [id number] Common 23:04:00 23:04:[address] [facility] 2018-07-09 2018-07-09 [facility] [id number] Common 10:00:00 10:00:[address] [facility] 2018-04-09 2018-04-09 [facility] [id number] Common 21:34:00 21:34:[address] [facility] 2018-04-09 2018-04-09 [facility] [id number] Common 13:15:00 13:15:[address] [facility] Results Test Description Test Time Test Comments Results Result Comments Source HEMOGLOBIN A1C 2022-05-15 00:00:00 Test Item Value Reference Range Interpretation Comme nts A1C (test code = 4548-4) 14.0 HEMOGLOBIN [id number] 00:00:00 Test Item Value Reference Range Interpretation Comments A1C (test code = 4548-4) 10.8 HEMOGLOBIN [id number] 00:00:00 Test Item Value Reference Range Interpretation Comments A1C (test code = 4548-4) 8.2% HEMOGLOBIN [id number] 00:00:00 Test Item Value Reference Range Interpretation Comments A1C (test code = 4548-4) 8.6
[2022-09-27 17:09] LABS: Absolute Lymphocytes (CBC) 2.1 K/uL (0.7-4.9); Hematocrit 34.4 % (36.0-45.0); Lymphocytes % 14.8 % (15.3-44.8); MCV 84.1 fL (80-100); MPV 8.2 fL (7.6-11.3); RBC Red Blood Cell Count 4.09 M/uL (3.86-4.86)
[2022-09-27 17:13] LABS: Protime INR 0.98
[2022-09-27 17:20] LABS: SARS-CoV-2 Antigen Rapid Res Negative (Negative)
[2022-09-27 17:44] LABS: ALT/SGPT 20 U/L (12-78); AST/SGOT 18 U/L (15-37); Albumin 3.8 g/dL (3.4-5.0); Alkaline Phosphatase 93 U/L (45-117); BUN Blood Urea Nitrogen 16 mg/dL (7-18); Bicarbonate 26 mmol/L (21-32); Bilirubin Direct 0.2 mg/dL (0-0.2); Bilirubin Total 1.2 mg/dL (0.2-1.0); Glomerular Filtration Rate 63 ml/min (=/>90); Glucose Level 256 mg/dL (74-106); Potassium 4.1 mmol/L (3.5-5.1); Protein, Total 8.1 g/dL (6.4-8.2); Sodium Level 137 mmol/L (136-145)
[2022-09-27] MEDS ORDERED: LORazepam 2 MG/ML VIAL ONE ×2 (17:58→20:46)
--- NOTE | 2022-09-27 18:05 | ER ---
Nurse's Notes [facility] Name: Myriam Bryant Age: 66 yrs Sex: Female : 1955 Arrival Date: 09/27/2022 Time: 15:19 Bed 16 Private MD: Diagnosis: DEPRESSION Presentation: 09/27 17:10 Chief complaint: Patient's son or daughter states: patient son reports patient started db crying and not being cooperative starting at 1130 saying that they don't understand. Son worried that patient will hurt herself. Patient not answering question. Crying and moaning. Coronavirus screen: Vaccine status: Patient reports receiving the 1st dose of the Covid vaccine. Client denies travel out of the [place] in the last 14 days. At this time, the client does not indicate any symptoms associated with coronavirus-19. Ebola Screen: Patient negative for fever greater than or equal to 101.5 degrees Fahrenheit, and additional compatible Ebola Virus Disease symptoms Patient denies exposure to infectious person. Patient denies travel to an Ebola-affected area in the 21 days before illness onset. No symptoms or risks identified at this time. 17:10 Method Of Arrival: Law Enforcement: [place] [employer] db 19:02 Initial Sepsis Screen: Does the patient meet any 2 criteria? No. Patient's initial db sepsis screen is negative. Does the patient have a suspected source of infection? No. Patient's initial sepsis screen is negative. Risk Assessment: Do you want to hurt yourself or someone else? Patient reports no desire to harm self or others. Onset of symptoms is unknown. 19:02 Acuity: VALDEMAR 2 db Triage Assessment: 17:13 General: Appears distressed, Behavior is crying. Pain: Unable to use pain scale. db patient refuses to answer. Historical: - Allergies: 17:13 No Known Allergies; db - Home Meds: 17:13 metformin 1,000 mg Oral tab 1 tab 2 times per day [Active]; db 22:58 glimepiride 4 mg Oral tab 1 tab twice a day [Active]; pioglitazone 30 mg Oral 1 tab aa9 daily [Active]; jardiance 25 mg 1 tab every morning [Active]; duloxetine 20 mg 1 cap daily [Active]; rosuvastatin 20 mg 1 tab daily [Active]; gabapentin 100mg 2 cap three times a day [Active]; - PMHx: 17:13 Arthritis; Diabetes - NIDDM; Hyperlipidemia; Hypertensive disorder; db - Immunization history:: Adult Immunizations unknown, Client reports receiving the 1st dose of the Covid vaccine. - Social history:: Smoking status: Patient denies any tobacco usage or history of. Screenin:19 Abuse screen: not answering. Nutritional screening: not answering. Tuberculosis db screening: not answering. Fall Risk None identified. No fall in past 12 months (0 pts). No secondary diagnosis (0 pts). IV access (20 points). Ambulatory Aid- None/Bed Rest/Nurse Assist (0 pts). Gait- Normal/Bed Rest/Wheelchair (0 pts) Mental Status- Overestimates/Forgets Limitations (15 pts.). Total Freitas Fall Scale indicates Low Risk Score (25-44 pts). Assessment: 17:15 Reassessment: Patient appears in no apparent distress at this time. patient not db answering questions yelling and crying in tamazight. Sons at bedside. per son patient's daughter recently . General:. Neuro: No deficits noted. Level of Consciousness is awake, alert. 18:02 Reassessment: Patient appears in no apparent distress at this time. patient yelling and db crying. not calming down for family. Son at bedside. 18:50 Reassessment: Patient appears in no apparent distress at this time. Patient is alert, db oriented x 3, equal unlabored respirations, skin warm/dry/pink. patient appears more calm. Occasionally quietly cries. General: Appears in no apparent distress. Behavior is quiet. 19:50 Reassessment: pt left side laying in bed, son at bedside, pt appears teary, requesting aa9 to go home. pt educated on the care plan. Son denies any concerns. Requested urine sample from pt, pt refused. General: Appears comfortable, slender, Behavior is crying. Pain: Denies pain. Neuro: Level of Consciousness is awake, alert, Oriented to person, place, time, situation. Cardiovascular: Patient's skin is warm and dry. Respiratory: Airway is patent Respiratory effort is even, unlabored. GI: No signs and/or symptoms were reported involving the gastrointestinal system. : No signs and/or symptoms were reported regarding the genitourinary system. 20:40 Reassessment: Reassessment: son at bedside. General: Appears uncomfortable, slender, aa9 Behavior is agitated, crying. Cardiovascular: Patient's skin is warm and dry. Respiratory: Airway is patent Respiratory effort is even, unlabored. 20:40 Reassessment: pt states," My son is taking over my home, I lost my daughter 7 months aa9 ago, my 1 year ago and I just feel very sad. I want to cry all the time.". 21:34 Reassessment: Juan Luis (son). aa9 23:01 Reassessment: pt spoke with [facility]. General: Behavior is calm, cooperative, aa9 appropriate for age. 23:36 Reassessment: pt discharged home with sons in personal vehicle, pt stable verbalized aa9 desire to go home. denies concerns. Psych: 17:16 [place] Suicide Severity Screening: In the past month, have you wished you were db or wished you could go to sleep and not wake up? patient refuses to answer "In the past month, have you actually had any thoughts of killing yourself?" patient refuses to answer "In your lifetime, have you ever done anything, started to do anything, or prepared to do anything to end your life?" patient refuses to answer. Subjective: Patient's mood is sad, crying. Objective: Patient is crying Speech is normal. Interventions: famiily at bedside. Safety Checks: Door is open. Visitors are present. familly at bedside. denies use. Vital Signs: 17:10 BP 133 / 91; Pulse 85; Resp 20; Temp 97.3(TE); Pulse Ox 95% ; Weight 40.82 kg; Height 4 db ft. 11 in. (149.86 cm); 17:30 BP 179 / 75; Pulse 72; Resp 16; db 18:30 BP 127 / 63; Pulse 75; Resp 20; Pulse Ox 95% ; Pain 0/10; db 23:35 BP 117 / 79; Pulse 73; Resp 18 S; Pulse Ox 98% on R/A; Pain 0/10; aa9 17:10 Body Mass Index 18.18 (40.82 kg, 149.86 cm) db ED Course: 15:19 Patient arrived in ED. am2 15:21 Tru Quinones DO is Attending Physician. ms3 16:48 Elyssa Vargas, RN is Primary Nurse. db 16:55 Inserted saline lock: 20 gauge in left antecubital area, using aseptic technique. Blood db collected. 17:14 Arm band placed on right wrist. Patient placed in an exam room. db 17:19 Patient has correct armband on for positive identification. Placed in gown. Side rails db up X2. 17:19 EKG done, by ED staff. tm3 19:02 Triage completed. db 19:09 Report given to KASH Caceres. db 19:20 Attending Physician role handed off by Tru Quinones DO ms3 19:20 Javy Jones MD is Attending Physician. ms3 21:52 contacted [facility] Line spoke to Anisa to have a screener evaluate the mw2 patient. 23:35 No provider procedures requiring assistance completed. IV discontinued, intact, aa9 bleeding controlled, No redness/swelling at site. Pressure dressing applied. Administered Medications: 18:00 Drug: Ativan (LORazepam) 0.5 mg Route: IVP; Site: left antecubital; db 18:38 Follow up: Response: No adverse reaction db 20:42 CANCELLED (wrong dosee): Ativan (LORazepam) 2 mg IVP once bs3 20:48 Drug: Ativan (LORazepam) 1 mg Route: IVP; Site: left antecubital; aa9 21:23 Follow up: Response: No adverse reaction; Anxiety decreased aa9 Medication: 18:30 VIS not applicable for this client. db Outcome: 18:04 ER care complete, transfer ordered by . ms3 23:17 Discharge ordered by . bs3 23:35 Discharged to home via wheelchair, with family. aa9 23:35 Condition: stable 23:35 Discharge instructions given to patient, family, Instructed on discharge instructions, follow up and referral plans. Demonstrated understanding of instructions, follow-up care. 23:36 Patient left the ED. aa9 Signatures: Anthony Mirelesi tm3 StarksVeronika am2 Caroline Kimbrough mw2 Tru Quinones DO DO ms3 Griselda Hart RN RN aa9 Javy Jones MD MD bs3 Elyssa Vargas, KASH RN db Corrections: (The following items were deleted from the chart) 20:48 Reassessment: aa9 aa9 20:48 General: Appears uncomfortable, slender, Behavior is agitated, crying, 9 9 20:48 Cardiovascular: Patient's skin is warm and dry. 9 9 20:48 Respiratory: Airway is patent Respiratory effort is even, unlabored, 9 9 : 17:13 Home Meds: glimepiride 4 mg Oral tab 1 tab once daily; db 9 : 17:13 Home Meds: pioglitazone Oral; aa9 : 21:20 Home Meds: levomilnacipran for depression; 9 aa9
--- NOTE | 2022-09-27 18:05 | EDPHYS ---
Physician Documentation [facility] Name: Myriam Bryant Age: 66 yrs Sex: Female : 1955 Arrival Date: 09/27/2022 Time: 15:19 Bed 16 Private MD: ED Physician Javy Jones HPI: 09/27 15:56 This 66 yrs old Female presents to ER via Unassigned with complaints of ms3 Suicidal Ideation. 15:56 The patient presents to the emergency department with depression. Onset: The ms3 symptoms/episode began/occurred acutely, 7 month(s) ago. Past psychiatric history: Prior diagnosis:. Associated signs and symptoms: Pertinent positives; depression, Pertinent negatives: abdominal pain, chills, fever. Severity of symptoms: At their worst the symptoms were severe in the emergency department the symptoms are unchanged. 66-year-old female presents with [employer] for harming herself by hitting her head onto the table and punching her self. Patient's son states patient's daughter 7 months ago and patient has had mental breakdown since since that time and has been crying. They state today the patient was attempting to hurt her self since approximately 11 AM.. Historical: - Allergies: 17:13 No Known Allergies; db - Home Meds: 17:13 metformin 1,000 mg Oral tab 1 tab 2 times per day [Active]; db 22:58 glimepiride 4 mg Oral tab 1 tab twice a day [Active]; pioglitazone 30 mg Oral 1 tab aa9 daily [Active]; jardiance 25 mg 1 tab every morning [Active]; duloxetine 20 mg 1 cap daily [Active]; rosuvastatin 20 mg 1 tab daily [Active]; gabapentin 100mg 2 cap three times a day [Active]; - PMHx: 17:13 Arthritis; Diabetes - NIDDM; Hyperlipidemia; Hypertensive disorder; db - Immunization history:: Adult Immunizations unknown, Client reports receiving the 1st dose of the Covid vaccine. - Social history:: Smoking status: Patient denies any tobacco usage or history of. ROS: 15:56 Constitutional: Negative for fever, and chills. Neck: Negative for injury, pain, and ms3 swelling, Cardiovascular: Negative for chest pain, and palpitations. Respiratory: Negative for shortness of breath, cough, wheezing, and pleuritic chest pain, Abdomen/GI: Negative for abdominal pain, nausea, vomiting, diarrhea, and constipation, MS/Extremity: Negative for injury and deformity. 15:56 Psych: Positive for depression. 15:56 All other systems are negative. Exam: 15:56 Constitutional: This is a well developed, well nourished patient who is awake, alert, ms3 and in no acute distress. Head/Face: Normocephalic, atraumatic. Neck: Trachea midline, no cervical lymphadenopathy. Supple, full range of motion without nuchal rigidity, or vertebral point tenderness. No Meningismus. Chest/axilla: Normal chest wall appearance and motion. Nontender with no deformity. Cardiovascular: Regular rate and rhythm with a normal S1 and S2. No gallops, murmurs, or rubs. Normal PMI, no JVD. No pulse deficits. Respiratory: Lungs have equal breath sounds bilaterally, clear to auscultation and percussion. No rales, rhonchi or wheezes noted. No increased work of breathing, no retractions or nasal flaring. Abdomen/GI: Soft, non-tender, with normal bowel sounds. No distension or tympany. No guarding or rebound. No evidence of tenderness throughout. Skin: Warm, dry with normal turgor. Normal color with no rashes, no lesions, and no evidence of cellulitis. MS/ Extremity: Pulses equal, no cyanosis. Neurovascular intact. Full, normal range of motion. 15:56 Psych: Behavior/mood is depressed, Affect is animated, Judgement / Insight is impaired. Vital Signs: 17:10 BP 133 / 91; Pulse 85; Resp 20; Temp 97.3(TE); Pulse Ox 95% ; Weight 40.82 kg; Height 4 db ft. 11 in. (149.86 cm); 17:30 BP 179 / 75; Pulse 72; Resp 16; db 18:30 BP 127 / 63; Pulse 75; Resp 20; Pulse Ox 95% ; Pain 0/10; db 23:35 BP 117 / 79; Pulse 73; Resp 18 S; Pulse Ox 98% on R/A; Pain 0/10; aa9 17:10 Body Mass Index 18.18 (40.82 kg, 149.86 cm) db MDM: 15:56 Differential diagnosis: acute psychotic break, depression. ms3 16:00 Patient medically screened. ms3 18:04 Data reviewed: vital signs, nurses notes, lab test result(s). ms3 19:19 Transition of care: After a detail discussion of the patient's case, care is ms3 transferred to Javy Jones MD. 22:06 ED course: per Dr. Quinones, pt with severe progressive depression, there was a concern for bs3 suicidal ideation and she has psychotic features, and was slamming her head against the wall, and not safe for home. 23:15 ED course: Patient seen and evaluated by kristi Rowe she was found to not have suicidal bs3 ideation or plan however does want to the case was discussed with her family as well they note that she has depression however she did not hit her head against the wall but rather punched the wall she does not meet inpatient criteria for psychiatric admission and patient is unwilling to be voluntarily admitted patient high risk for return however currently is without active plan and therefore does not meet criteria will discharge. 09/27 15:21 Order name: Acetaminophen; Complete Time: 18:02 ms3 09/27 15:21 Order name: BMP; Complete Time: 18:02 ms3 09/27 15:21 Order name: CBC with Diff; Complete Time: 18:02 ms3 09/27 15:21 Order name: Ethanol; Complete Time: 18:02 ms3 09/27 15:21 Order name: Hepatic Function; Complete Time: 18:02 ms3 09/27 15:21 Order name: Protime (+inr); Complete Time: 18:02 ms3 09/27 15:21 Order name: Ptt, Activated; Complete Time: 18:02 ms3 09/27 15:21 Order name: SARS-COV-2 Antigen Rapid; Complete Time: 18:02 ms3 09/27 15:21 Order name: Salicylate; Complete Time: 18:02 ms3 09/27 15:21 Order name: Urine Drug Screen ms3 09/27 20:57 Order name: Urine Dipstick-Ancillary EDME 09/27 15:21 Order name: EKG; Complete Time: 15:23 ms3 09/27 15:21 Order name: EKG - Nurse/Tech; Complete Time: 17:10 ms3 09/27 15:21 Order name: IV Saline Lock; Complete Time: 17:10 ms3 09/27 15:21 Order name: Labs collected and sent; Complete Time: 17:10 ms3 09/27 15:21 Order name: O2 Per Protocol; Complete Time: 17:10 ms3 09/27 15:21 Order name: O2 Sat Monitoring; Complete Time: 17:10 ms3 09/27 15:21 Order name: Suicide Precautions; Complete Time: 17:10 ms3 09/27 15:21 Order name: Suicide Screening ([place]); Complete Time: 17:10 ms3 09/27 15:21 Order name: Urine Dipstick-Ancillary (obtain specimen); Complete Time: 21:06 ms3 Administered Medications: 18:00 Drug: Ativan (LORazepam) 0.5 mg Route: IVP; Site: left antecubital; db 18:38 Follow up: Response: No adverse reaction db 20:42 CANCELLED (wrong dosee): Ativan (LORazepam) 2 mg IVP once bs3 20:48 Drug: Ativan (LORazepam) 1 mg Route: IVP; Site: left antecubital; aa9 21:23 Follow up: Response: No adverse reaction; Anxiety decreased aa9 Disposition Summary: 09/27/22 23:17 Discharge Ordered Location: Home bs3 Problem: new(09/27/22 23:17) bs3 Symptoms: are unchanged(09/27/22 23:17) bs3 Condition: Fair(09/27/22 23:17) bs3 Diagnosis - DEPRESSION bs3 Followup: bs3 - With: Private Physician - When: - Reason: Re-evaluation by your physician Discharge Instructions: - Discharge Summary Sheet bs3 - Major Depressive Disorder, Adult bs3 Forms: - Medication Reconciliation Form bs3 - Thank You Letter bs3 - Antibiotic Education bs3 - Prescription Opioid Use bs3 Signatures: Dispatcher [employer] EDMS Tru Quinones DO DO ms3 Griselda Hart RN RN aa9 Javy Jones MD MD bs3 Elyssa Vargas RN RN db Corrections: (The following items were deleted from the chart) 20:42 20:41 Ativan (LORazepam) 2 mg IVP once ordered. bs3 bs3 23:01 17:13 Home Meds: glimepiride 4 mg Oral tab 1 tab once daily; db aa9 23:01 17:13 Home Meds: pioglitazone Oral; db aa9 23:01 21:20 Home Meds: levomilnacipran for depression; aa9 aa9 23:14 18:04 Psych ms3 bs3 23:14 18:04 Psych Facility ms3 bs3 23:14 18:04 Higher level of care ms3 bs3 23:14 18:04 Stable ms3 bs3 23:14 18:04 new ms3 bs3 23:14 18:04 are unchanged ms3 bs3 23:14 18:04 Depression ms3 bs3
[2022-09-27 20:57] LABS: Urine Blood Negative (Negative); Urine Glucose 2+ (Negative); Urine Protein Trace (Negative); Urine Specific Gravity 1.025 (1.005-1.030); Urine pH 5.5 (5.0-7.0)
[2022-09-27 21:11] LABS: Barbiturates NEGATIVE (NEGATIVE); Benzodiazepines NEGATIVE (NEGATIVE); Cocaine NEGATIVE (NEGATIVE); METHAMPHETAM NEGATIVE (NEGATIVE); Methadone NEGATIVE (NEGATIVE); Opiates NEGATIVE (NEGATIVE); Phencyclidine NEGATIVE (NEGATIVE); THC Cannibis NEGATIVE (NEGATIVE)
[2022-09-27 23:42] VITALS: TEMP 97.3
[2022-09-27 23:46] VITALS: BP 117/79; O2SAT 98
--- NOTE | 2022-09-30 16:06 | EKG ---
Test Date: 2022-09-27 Test Time: 17:17:09 [employer]plane Electrician: [employer] MEASUREMENT RESULTS: Intervals: Rate: 76 [place]: 146 QRSD: 78 QT: 394 QTc: 443 [place]: P: 73 [place]: 146 QRS: 63 T: 59 INTERPRETIVE STATEMENTS: Normal sinus rhythm Normal ECG Compared to ECG 05/12/2019 22:19:54 No significant changes Electronically Signed On 09-30-22 16:00:07 CDT by Jalen Huitron
== END 2022-09-27 23:36 | disposition home or self-care (01) ==
LOC: ER 15:13
DX: F32.A Depression, unspecified (principal); Z20.822 Contact with and (suspected) exposure to COVID-19; E11.9 Type 2 diabetes mellitus without complications; I10 Essential (primary) hypertension
CPT/HCPCS: 36415; 80048; 80076; 80307; 80320; 80329; 81003; 85025; 85610; 85730; 87811; 93005; 96374; 99284

== ENCOUNTER 2022-12-05 13:09 | Emergency (ER) | payer OTHER ==
--- OUTSIDE RECORDS SUMMARY | 2022-12-05 13:27 | XMS REPORT | Continuity of Care Document ---
:1955 Author Organization [facility] t Address [address] [place] [address] Care Team Providers Name Role Phone PCP, [...] Divya Ruvalcaba MD Attending Clinician Doctor Unassigned, [place] Attending Clinician Unavailable Only, Adc Test Attending Clinician Unavailable Pob, [facility]c Lab Main Attending Clinician Unavailable Dorina Simental MD, Michael B Attending Clinician Veronica DIXON, Patricia Jean Baptiste Attending Clinician [phone] Yesenia Turner RN Attending Clinician Unavailable Jeyson RN, Matt A Attending Clinician Unavailable Ernesto Elamya S Attending Clinician DIVYA RUVALCABA Admitting Clinician Unavailable DIVYA CAM JR Admitting Clinician Unavailable ANISA JACOB Admitting Clinician Unavailable SIOBHAN PEREIRA Admitting Clinician Unavailable BARTJonnie WattersGE Admitting Clinician Unavailable Divya Ruvalcaba MD Admitting Clinician Dorina Simental MD, Michael B Admitting Clinician Anisa Jacob MD Admitting Clinician Payers Payer Name Policy Type Policy Number Effective Date Expiration Date S andrei [facility] [id number] 2021 MEDICARE 00:00:00 [facility] 53 [id number] 2020 [facility] ADVANTAGE 00:00:[address] [facility] MEDIC[facility] MB [id number] 2020 [facility] NOVITAS 00:00:[address] - [facility] MEDICARE MB [id number] 2020 [facility] NOVITAS 00:00:00 - [facility] [id number] 2017 HEALTH CHOICE 00:00:00 Problems Condition Condition Condition Status Onset Resolution Last Treating Co mments Source Name Details Category Date Date Treatment Clinician Date Peripheral Peripheral Disease Active Overview : Univers arterial arterial 04-24 Formattin ity of disease disease 00:00: g of this [place] 00 note Medical might be Branch different from the original. Added automatic ally from request for surgery [id number] Neuropathy Neuropathy Disease Active Overview : Univers 5-25 Formattin ity of 00:00: g of this [place] note Medical might be Branch different from the original. Added automatic ally from request for surgery [id number] PAD PAD Disease Active Univers (periphera (periphera 04-06 it y of l artery l artery 00:00: [place] disease) disease) 00 Medica l Branch Type 2 Type 2 Disease Active Univers diabetes diabetes 9-18 ity of mellitus mellitus 00:00: with with 00 Medical complicati complicati Br anch on, on, without without long-term long-term current current use of use of insulin insulin Dyslipidem Dyslipidem Disease Active U nivers ia ia 9-18 ity of 00:00: [place] 00 [facility] Branch Elevated Elevated Disease Active Unive rs ALT ALT 08-18 [place] of [place] [facility] [id number] Current Problem Active Common moderate Spirit episode of - [facility] major [facility] Center prior episode [id number] Chronic Problem Active Common fatigue [facility] [id number] Chronic Problem Active Commo n pain Spirit syndrome [facility] [id number] Skin Problem Active Common lesion [facility] [id number] Anemia, Problem Active Commo n unspecifie Spirit d type [facility] [id number] Nonintract Problem Active Com mon able Spirit headache, - [facility] unspecie [facility] chronicity Medica l pattern, Center unspecifie d headache type [id number] Mixed Problem Active Common hyperlipid Spirit emia [facility] [id number] Uncontroll Problem Active Co mmon ed type 2 Spirit diabetes - CHI mellitus [facility] complicati Medica l on, Center without long-term current use of insulin [id number] 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 rosis [facility] artery of [facility] lower [facility] extremity Center with intermitte nt claudicati on [id number] Polyarthra Problem Active Com mon lgia [facility] [id number] Abnormal Problem Active Commo n liver [facility] function [facility] [id number] Vitamin D Problem Active Comm on deficiency [facility] [id number] Essential Problem Active Comm on hypertensi Spirit on [facility] [id number] Gastroesop Problem Active Co mmon hageal Spirit reflux - [facility] s presence Medica l not Center specified Allergies, Adverse Reactions, Alerts Allergy Allergy Status Severity Reaction(s) Onset Inactive Treating Comm ents Source Name Type Date Date Clinician NO KNOWN Drug Active Univers ALLERGIE Class ity of S [facility] Social History Social Habit Start Date Stop Date Quantity Comments Source History of [facility] - Tobacco Use [facility] Sex Assigned At [facility] gillian - [facility] Exposure to 2022-06-19 2022-06-29 Not sure University of SARS-CoV-2 00:00:00 20:04:00 [facility] (event) Branch Tobacco use and 2021-04-06 2021-04-06 Smokeless tobacco Un iversity of exposure 00:00:00 00:00:00 non-user [facility] Smoking Status Start Date Stop Date Source Never Smoker [facility] - [facility] Medications Ordered Filled Start Stop Current Ordering Indication Dosage Frequency Signature Comments Components Source Medication Medication Date Date Medication? Clinician (SIG) Name Name Vitamin B12 Vitamin B12 No 1000ug Common (Cyanocobal (Cyanocobal 8-16 S pirit riggs) riggs) 00:00: - [facility] NaCl 0.9% 2021- No 500mL at 999 Univ ers (NS) bolus 06-30 mL/hr, 500 it y of infusion 01:30: 04:00 mL, IV [place] 500 mL 00 :00 Infusion, Medical ONCE, 1 Branch dose, On 06/29/22 at 2030, STAT diphenhydrA 2021- No 25mg 25 mg, Uni vers MINE 06-30 Slow IV ity of (BENADRYL) 01:30: 01:48 Push, [place] injection 00 :00 ONCE, 1 Medical 25 mg dose, On Branch 06/29/22 at 2030, STAT metoclopram 2021- No 10mg 10 mg, Uni vers ana HCl 06-30 Slow IV ity of (REGLAN) 01:30: 01:48 Push, [place] injection 00 :00 ONCE, 1 Medical 10 mg dose, On Branch 06/29/22 at 2030, ZARI ondansetron Yes [id number] 4mg Take 1 Univers (ZOFRAN) 4 7-30 tablet by ity of mg tablet 00:00: mouth [place] 00 every 8 Medical (eight) Branch hours as needed for Nausea and Vomiting (N/V). traMADoL Yes [id number] 50mg Take 1 Univers (ULTRAM) 50 7-30 tablet by ity of mg tablet 00:00: mouth [place] 00 every 6 Medical (six) Branch hours as needed for Pain (scale 7-10). Indication s: acute pain butalbital- 0 Yes [id number] 1{tbl} Take 1 Univers acetaminoph 7-30 tablet by ity of en-caff 00:00: mouth [place] 50-325-40 00 every 6 Medical mg tablet (six) Branch hours as needed (Headache) . butalbital- 2021- No [id number] 1{tbl} Take 1 Univers acetaminoph 7-30 07-30 [...] t} HCl 25 MG 00:00: 00 empaglifloz 2021-0 Yes 10mg Take 10 mg Univers in 6-30 by mouth ity of ([place]ARDI[place]) 14:30: [place]. [place] 10 mg 22 Medical Branch DULoxetine 0 Yes 1{capsu Take 1 Un parish 30 mg CDRS 6-30 le} capsule by ity of 14:30: mouth 2 [place] [address] (two) Medical times Branch daily. empaglifloz 0 Yes 10mg Take 10 mg Univers in 6-30 by mouth ity of (JARDIANCE) 14:30: [place]. [place] 10 mg 22 [place] Branch DULoxetine 0 Yes 1{capsu Take 1 Un [place] 30 mg CDRS 6-30 le} capsule by ity of 14:30: mouth 2 [place] [address] (two) Medical times Branch daily. Jardiance Jardiance 2021-0 2021- No 1{table QD Jardiance 10 MG 10 MG 6-15 07-15 t} 10 MG 00:00: 00:00 00 :00 pioglitazon 2021-0 Yes 15mg Take 15 mg Univers e 15 mg 6-09 by mouth ity of tablet 16:17: daily. [place] 08 [facility] Branch gabapentin 2021-0 Yes 100mg Take 100 Un [place] 100 mg 6-09 mg by ity of capsule 16:17: mouth 3 [place] [address] (three) Medical times [place] daily. lisinopriL 2021-0 Yes 10mg Take 10 mg U nivers 10 mg 6-09 by mouth ity of tablet 16:17: daily. [address] Branch rosuvastati 2021-0 Yes 20mg Take 20 mg Univers n 20 mg 6-09 by mouth ity of tablet 16:17: at [place] [address] bedtime. Medical Branch pioglitazon 2021-0 Yes 15mg Take 15 mg Univers e 15 mg 6-09 by mouth ity of tablet 16:17: daily. [address] Branch gabapentin 2021-0 Yes 100mg Take 100 Un [place] 100 mg 6-09 mg by ity of capsule 16:17: mouth 3 [place] [address] (three) [facility] times [place] daily. lisinopriL 2021-0 Yes 10mg Take 10 mg U nivers 10 mg 6-09 by mouth ity of tablet 16:17: daily. [address] Branch rosuvastati 0 Yes 20mg Take 20 mg Univers n 20 mg 6-09 by mouth ity of tablet 16:17: at [place] [address] bedtime. Medical Branch glimepiride 0 Yes 4mg Take 4 mg U nivers 4 mg tablet 6-09 by mouth ity of 16:14: daily with [place] [address] breakfast. Medical Branch Insulin 0 Yes inject Univers Glargine 6-09 under the ity of (LANTUS 16:14: skin. [address] U-100 [place] INSULIN) 100 unit/mL (3 mL) injection metFORMIN 0 Yes 1000mg Take 1,000 Univers 1,000 mg 6-09 mg by ity of tablet 16:14: mouth 2 [place] [address] (two) [facility] [place] [facility] daily with meals. glimepiride 0 Yes 4mg Take 4 mg U nivers 4 mg tablet 6-09 by mouth ity of 16:14: daily with [place] [address] breakfast. Medical Branch Insulin 0 Yes inject Univers Glargine 6-09 under the ity of (LANTUS 16:14: skin. [address] U-100 [place] INSULIN) 100 unit/mL (3 mL) injection metFORMIN 2021-0 Yes 1000mg Take 1,000 Univers 1,000 mg 6-09 mg by ity of tablet 16:14: mouth 2 [place] 17 (two) Medical times Branch daily with [...] ORAL) 10 Medical Branch ergocalcife 2020-12 Yes [id number] Take Univ ers rol, 1-11 50,000 ity of vitamin d2, 08:53: [place] (VITAMIN 10 mouth Medical D2) 50,000 weekly. Branch unit capsule metFORMIN 2020-12 Yes 500mg Take 500 Uni vers 500 mg 1-11 mg by ity of tablet 08:53: mouth 2 [place] 10 (two) Medical times Branch daily with meals. meloxicam 2020-12 Yes 7.5mg Take 7.5 Uni vers 7.5 mg 1-11 mg by ity of tablet 08:53: mouth [place] 10 daily. Medical Branch pioglitazon 2020-12 Yes 30mg Take 30 mg Univers e 30 mg 1-11 by mouth ity of tablet 08:53: daily. [address] Branch dicyclomine 2020-12 Yes 200mg Take 200 U nivers HCl 1-11 mg by ity of (DICYCLOMIN 08:53: [place]. [place] E ORAL) [address] [place] [address] Branch ergocalcife 2020-12 Yes [id number] Take Univ ers rol, 1-11 50,000 ity of vitamin d2, 08:53: Units [place] (VITAMIN 10 mouth Medical D2) 50,000 weekly. Branch unit capsule metFORMIN 2020-12 Yes 500mg Take 500 Uni vers 500 mg 1-11 mg by ity of tablet 08:53: mouth 2 [place] [address] (two) Medical times Branch daily with meals. meloxicam 2020-12 Yes 7.5mg Take 7.5 Uni vers 7.5 mg 1-11 mg by ity of tablet 08:53: mouth [place] 10 daily. [facility] Branch pioglitazon 2020-12 Yes 30mg Take 30 mg Univers e 30 mg 1-11 by mouth ity of tablet 08:53: daily. [address] Rollator Rollator No Rollator walker n/s walker n/s 08-28 walker n/s 00:00: 00 Pioglitazon Pioglitazon 0 No 1{table QD Pioglitazo e HCl 30 MG e HCl 30 MG 9-21 t} ne HCl 30 00:00: MG 00 Pioglitazon Pioglitazon No 1{table QD Pioglitazo e HCl 30 MG e HCl 30 MG 9-21 t} ne HCl 30 00:00: MG 00 MINOCYCLINE 2020-0 Yes [id number] TAKE 1 Univers 100 mg 8-24 CAPSULE BY ity of capsule 00:00: MOUTH [place] 00 EVERY 12 Medical HOURS FOR Branch 7 DAYS MINOCYCLINE 2020-0 Yes [id number] TAKE 1 Univers 100 mg 8-24 CAPSULE BY ity of capsule 00:00: MOUTH [place] 00 EVERY 12 Medical HOURS FOR Branch 7 DAYS Contour Contour No Contour Next Test - Next Test - 7 Next Test 00:00: - 00 Contour Contour No Contour Next Test - Next Test - 7 Next Test 00:00: - 00 Contour Contour No Contour Next Test - Next Test - 06-26 Next Test 00:00: - 00 Contour Contour 2020-0 No Contour Next Test - Next Test 06-26 Next Test 00:00: - 00 Contour Contour 2020-0 No Contour Next Test - Next Test 06-26 Next Test 00:00: - 00 Contour Contour 2020-0 No Contour Next Test - Next Test 06-26 Next Test 00:00: - 00 Contour Contour 2020-0 No Contour Next Test - Next Test 06-26 Next Test 00:00: - 00 Contour Contour 2020-0 No Contour Next Test - Next Test 06-26 Next Test 00:00: - 00 traMADoL [...] 18 doses. Indication s: acute pain Pen Spencer Pen Spencer 2020-0 No QD Pen 5/16" 31G X 5/16" 31G X 5-27 Spencer 8 MM 8 MM 00:00: 5/16" 31G 00 X 8 MM Lisinopril Lisinopril 2020-0 No 1{table QD Lisinopril 10 MG 10 MG 5-27 t} 10 MG 00:00: 00 Pen Spencer Pen Spencer 2020-0 No QD Pen 5/16" 31G X 5/16" 31G X 5-27 Spencer 8 MM 8 MM 00:00: 04/15" 31G 00 X 8 MM Lisinopril Lisinopril 2021-0 No 1{table QD Lisinopril 10 MG 10 MG 5-27 t} 10 MG 00:00: 00 Pen Spencer Pen Spencer 2020-0 No QD Pen 04/15" 31G X 5/16" 31G X 5-27 Spencer 8 MM 8 MM 00:00: 04/15" 31G 00 X 8 MM Lisinopril Lisinopril 2021-0 No 1{table QD Lisinopril 10 MG 10 MG 5-27 t} 10 MG 00:00: 00 Lisinopril Lisinopril 2021-0 No 1{table QD Lisinopril 10 MG 10 MG 5-27 t} 10 MG 00:00: 00 Pen Spencer Pen Spencer 2020-0 No QD Pen 04/15" 31G X 5/16" 31G X 5-27 Spencer 8 MM 8 MM 00:00: 04/15" 31G 00 X 8 MM Pen Spencer Pen Spencer 2020-0 No QD Pen 04/15" 31G X 5/16" 31G X 5-27 Spencer 8 MM 8 MM 00:00: 04/15" 31G 00 X 8 MM Lisinopril Lisinopril 2021-0 No 1{table QD Lisinopril 10 MG 10 MG 5-27 t} 10 MG 00:00: 00 Pen Spencer Pen Spencer 2020-0 No QD Pen 04/15" 31G X 5/16" 31G X 5-27 Spencer 8 MM 8 MM 00:00: 04/15" 31G 00 X 8 MM Lisinopril Lisinopril 2021-0 No 1{table QD Lisinopril 10 MG 10 MG 5-27 t} 10 MG 00:00: 00 Pen Spencer Pen Spencer 2020-0 No QD Pen 04/15" 31G X 5/16" 31G X 5-27 Spencer 8 MM 8 MM 00:00: 04/15" 31G 00 X 8 MM Lisinopril Lisinopril 2021-0 No 1{table QD Lisinopril 10 MG 10 MG 5-27 t} 10 MG 00:00: 00 Pen Spencer Pen Spencer 2020-0 No QD Pen 5/16" 31G X 5/16" 31G X 5-27 Spencer 8 MM 8 MM 00:00: 5/16" 31G 00 X 8 MM Lisinopril Lisinopril No 1{table QD Lisinopril 10 MG 10 MG 5-27 t} 10 MG 00:00: 00 aspirin 81 2020-0 Yes [id number] 81mg Take 1 Univers mg chewable 5-08 tablet by ity of tablet 00:00: mouth [place] 00 daily. Medical Branch aspirin 81 0 Yes [id number] 81mg Take 1 Univers mg chewable 5-08 [...] tablet 00 bedtime. Medical Branch Pioglitazon Pioglitazon 0 Yes Kamala 1 tablet Common e HCl e HCl -07 [place] [facility] 00:00: - CHI 00 [facility] Scottyuvgagandeep Hamia 0 Yes Kamala 1 tablet Co mmon -06 [place] [facility] 00:00: - CHI 00 [facility] Ondansetron Ondansetron Yes Kamala 1 tablet Common HCl HCl 9-06 [place] as needed Spiri t 00:00: for - CHI nausea/vom [facility] Lancets Lancets Yes Kamala as Common 5-10 [place] directed; Spiri t 00:00: dispense - CHI lancets [facility] to [facility] BL Blood BL Blood Yes Kamala As Comm on Glucose Glucose 5-10 [place] directed; Spirit Monitor Kit Monitor Kit 00:00: DISPENSE - CHI 00 BG MONITOR [facility] TO [facility] blood blood 2019- No Kamala as Common glucose glucose 5-10 08-03 [place] directed; Spirit test strip test strip 00:00: 00:00 DISPENSE - CHI 00 :[address] [facility] INSURANCE Glimepiride Glimepiride Yes Kamala 1 tablet Common [place] [facility] Gabapentin Gabapentin Yes Kamala 1 capsule Common [facility] Cyclobenzap Cyclobenzap Yes Kamala 1 tablet Common rine HCl rine HCl [place] as needed Spirit [facility] Mobic Mobic Yes Kamala 1 tablet Common [place] [facility] Metformin Metformin Yes Kamala 1 tablet Common HCl HCl Millender with a Spirit meal [facility] Aspirin 81 Aspirin 81 No 1{table QD [...] Spirit - OVER 65 OVER 65 14:11:00 [facility] FLUZONE HIGH DOSE FLUZONE HIGH DOSE 2021-10-16 Completed [facility] - OVER 65 OVER 65 14:11:00 [facility] FLUZONE HIGH DOSE FLUZONE HIGH DOSE 2021-10-16 Completed [facility] - OVER 65 OVER 65 14:11:00 [facility] FLUZONE HIGH DOSE FLUZONE HIGH DOSE 2021-10-16 Completed [facility] - OVER 65 OVER 65 14:11:00 [facility] FLUZONE HIGH DOSE FLUZONE HIGH DOSE 2021-10-16 Completed [facility] - OVER 65 OVER 65 14:11:00 [facility] FLUZONE HIGH DOSE FLUZONE HIGH DOSE 2021-10-16 Completed [facility] - OVER 65 OVER 65 14:11:00 [facility] FLUZONE HIGH DOSE FLUZONE HIGH DOSE 2021-10-16 Completed [facility] - OVER 65 OVER 65 14:11:00 [facility] COVID-19 Vaccine COVID-19 Vaccine 2021-02-19 Completed Co mmon Spirit - (Brett) (Brett) 14:31:00 [facility] COVID-19 Vaccine COVID-19 Vaccine 2021-02-19 Completed Co mmon Spirit - (Brett) (Brett) 14:31:00 [facility] COVID-19 Vaccine COVID-19 Vaccine 2021-02-19 Completed Co mmon Spirit - (Brett) (Brett) 14:31:00 [facility] COVID-19 Vaccine COVID-19 Vaccine 2021-02-19 Completed Co mmon Spirit - (Brett) (Brett) 14:31:00 [facility] COVID-19 Vaccine COVID-19 Vaccine 2021-02-19 Completed Co mmon Spirit - (Brett) (Brett) 14:31:00 [facility] COVID-19 Vaccine COVID-19 Vaccine 2021-02-19 Completed Co mmon Spirit - (Brett) (Brett) 14:31:00 [facility] COVID-19 Vaccine COVID-19 Vaccine 2021-02-19 Completed Co mmon Spirit - (Brett) (Brett) 14:31:00 [facility] COVID-19 Vaccine COVID-19 Vaccine 2021-02-19 Completed Co mmon Spirit - (Brett) (Brett) 14:31:00 [facility] SARS-COV-2 COVID-19 2021-02-19 Completed Unive rsity of BRETT/J&J VACCINE 00:00:00 [facility] SARS-COV-2 COVID-19 2021-02-19 Completed Unive rsity of BRETT/J&J VACCINE 00:00:00 [facility] Vital Signs Vital Name Observation Time Observation Value Comments Source height 2022-07-16 13:00:00 56 [in_i] [facility] weight 2022-07-16 13:00:00 97.8 [lb_av] Common [facility] temperature 2022-07-16 13:00:00 98.2 [degF] [facility] bmi 2022-07-16 13:00:00 21.92 kg/m2 [facility] oximetry 2022-07-16 13:00:00 100 % [facility] respiratory rate 2022-07-16 13:00:00 16 /min Comm on [facility] blood pressure 2022-07-16 13:00:00 138 mm[Hg] [facility] systolic [facility] blood pressure 2022-07-16 13:00:00 88 mm[Hg] [facility] diastolic [facility] Systolic blood 2022-06-30 04:00:00 149 mm[Hg] Univer sity of [facility] Diastolic blood 2022-06-30 04:00:00 61 mm[Hg] Unive rsity [facility] Heart rate 2022-06-30 04:00:00 92 /min [facility] Respiratory rate 2022-06-30 04:00:00 18 /min [facility] Oxygen saturation in 2022-06-30 04:00:00 98 /min [facility] Arterial blood by [facility] Pulse oximetry Branch Body temperature 2022-06-30 01:07:00 38.22 Sravanthi [facility] Body height 2022-06-30 01:07:00 144.8 cm [facility] Body weight 2022-06-30 01:07:00 47.174 kg [facility] BMI 2022-06-30 01:07:00 22.51 kg/m2 [facility] height 2022-06-13 13:00:00 [facility] weight 2022-06-13 13:00:00 98.6 [lb_av] [facility] temperature 2022-06-13 13:00:00 97.2 [degF] Common S pirit [facility] bmi 2022-06-13 13:00:00 22.1 kg/m2 [facility] oximetry 2022-06-13 13:00:00 97 % [facility] respiratory rate 2022-06-13 13:00:00 16 /min Comm on [facility] - [facility] blood pressure 2022-06-13 13:00:00 136 mm[Hg] [facility] - systolic [facility] blood pressure 2022-06-13 13:00:00 69 mm[Hg] [facility] diastolic [facility] Systolic blood 2022-05-30 19:32:00 140 mm[Hg] Univer sity of [facility] Diastolic blood 2022-05-30 19:32:00 75 mm[Hg] Unive rsity of [facility] Heart rate 2022-05-30 19:30:00 71 /min [facility] Body temperature 2022-05-30 19:30:00 37.06 Sravanthi [facility] Body height 2022-05-30 19:30:00 147.3 cm [facility] Body weight 2022-05-30 19:30:00 43.999 kg [facility] BMI 2022-05-30 19:30:00 20.27 kg/m2 [facility] Oxygen saturation in 2022-05-30 19:30:00 100 /min [facility] Arterial blood by [facility] Pulse oximetry Branch height 2022-05-15 13:00:00 57 [in_i] Common [facility] weight 2022-05-15 13:00:00 99.8 [lb_av] Common S [facility] temperature 2022-05-15 13:00:00 98.4 [degF] Common S [facility] bmi 2022-05-15 13:00:00 21.59 kg/m2 [facility] S [facility] oximetry 2022-05-15 13:00:00 96 % Common S pirit [facility] respiratory rate 2022-05-15 13:00:00 16 /min Comm on [facility] - [facility] blood pressure 2022-05-15 13:00:00 164 mm[Hg] [facility] - systolic [facility] blood pressure 2022-05-15 13:00:00 76 mm[Hg] [facility] - diastolic [facility] height 2022-01-22 15:40:00 57 [in_i] Common S pirit - [facility] weight 2022-01-22 15:40:00 110 [lb_av] Common S pirit [facility] temperature 2022-01-22 15:40:00 97.2 [degF] Common S pirit [facility] bmi 2022-01-22 15:40:00 23.80 kg/m2 [facility] oximetry 2022-01-22 15:40:00 98 % Common S pirit [facility] blood pressure 2022-01-22 15:40:00 138 mm[Hg] [facility] - systolic [facility] blood pressure 2022-01-22 15:40:00 74 mm[Hg] [facility] - diastolic [facility] height 2022-01-22 16:00:00 57 [in_i] Common S pirit [facility] weight 2022-01-22 16:00:00 110 [lb_av] Common S pirit - [facility] temperature 2022-01-22 16:00:00 97.2 [degF] Common S pirit [facility] bmi 2022-01-22 16:00:00 23.80 kg/m2 Common S pirit [facility] oximetry 2022-01-22 16:00:00 98 % Common S pirit - [facility] blood pressure 2022-01-22 16:00:00 138 mm[Hg] [facility] - systolic [facility] blood pressure 2022-01-22 16:00:00 74 mm[Hg] [facility] - diastolic [facility] height 2021-10-16 13:40:00 57 [in_i] [facility] weight 2021-10-16 13:40:00 109.4 [lb_av] [facility] temperature 2021-10-16 13:40:00 98.2 [degF] [facility] bmi 2021-10-16 13:40:00 23.67 kg/m2 [facility] oximetry 2021-10-16 13:40:00 99 % [facility] respiratory rate 2021-10-16 13:40:00 16 /min Comm on [facility] blood pressure 2021-10-16 13:40:00 140 mm[Hg] [facility] systolic [facility] blood pressure 2021-10-16 13:40:00 76 mm[Hg] [facility] diastolic [facility] height 2021-08-21 14:40:00 57 [in_i] [facility] weight 2021-08-21 14:40:00 112.4 [lb_av] [facility] temperature 2021-08-21 14:40:00 97.0 [degF] [facility] bmi 2021-08-21 14:40:00 24.32 kg/m2 [facility] oximetry 2021-08-21 14:40:00 98 % [facility] respiratory rate 2021-08-21 14:40:00 16 /min Comm on [facility] Procedures Procedure Date / Time Performing Clinician Source Performed URINALYSIS 2022-06-30 03:06:[address] [facility] CT HEAD WO CONTRAST 2022-06-30 01:47:00 Siobhan Pereira [facility] LIPASE 2022-06-30 01:32:[address] [facility] TROPONIN I 2022-06-30 01:32:[address] [facility] COMP. METABOLIC PANEL 2022-06-30 01:32:00 Siobhan Pereira [facility] ([id number]) Medical Branch CBC WITH DIFF 2022-06-30 01:32:[address] [facility] PROTHROMBIN TIME / INR 2022-06-30 01:32:00 [facility] COVID-19 (ID NOW RAPID 2022-06-30 01:32:00 Siobhan Pereira [facility] TESTING) Medical Branch CONSENT/REFUSAL FOR 2022-06-30 00:48:26 Doctor Unassigned, No Un [facility] DIAGNOSIS AND TREATMENT Name Medical Branch Encounters Start End Encounter Admission Attending Care Care Encounter Source Date/Time Date/Time Type Type Clinicians Facility Department ID 2022-08-12 Outpatient Gardiner, STLMLC STLMLC [id number] Common 13:25:00 Gloria [facility] 2022-07-12 Outpatient Gardiner, STLMLC STLMLC [id number] Common 09:03:00 Gloria [facility] 2021-12-26 Outpatient Gardiner, STLMLC STLMLC [id number] Common 14:35:38 Gloria [facility] 2021-12-26 Outpatient Gardiner, STLMLC STLMLC [id number] Common 14:07:57 Gloria [id number] [facility] 2021-12-26 Outpatient Gardiner, STLMLC STLMLC [id number] Common 13:58:41 Gloria 11118 [facility] 2021-12-26 Outpatient Gardiner, STLMLC STLMLC [id number] Common 13:26:23 Gloria [id number] [facility] 2021-12-26 Outpatient Gardiner, STLMLC STLMLC [id number] Common 13:07:52 Gloria 17561 [facility] 2021-12-26 Outpatient Gardiner, STLMLC STLMLC [id number] Common 12:46:22 Gloria 04768 [facility] 2021-12-26 Outpatient Gardiner, STLMLC STLMLC [id number] Common 12:45:46 Gloria 86661 [facility] 2021-12-26 Outpatient Gardiner, STLMLC STLMLC [id number] Common 12:43:16 Gloria [id number] [facility] 2021-12-26 Outpatient Gardiner, STLMLC STLMLC [id number] Common 12:42:46 Gloria 10409 [facility] 2021-12-26 Outpatient Gardiner, STLMLC STLMLC [id number] Common 12:41:53 Gloria 25318 [facility] 2021-12-26 Outpatient Gardiner, STLMLC STLMLC [id number] Common 12:41:21 Gloria 35012 [facility] 2021-12-26 Outpatient STLMLC STLMLC [id number] Common 12:25:33 62222 [facility] 2021-10-02 Outpatient Debra RUVALCABA [facility] OPH [id number] Univers 03:38:[address] [facility] 2021-10-01 [facility] [id number] Univers 02:10:[address] [facility] 2021-09-[address] [facility] [id number] Univers 21:11:03 ANISA schmid [facility] 2021-09-30 Emergency [facility] [id number] Univers 17:40:10 binu [facility] 2022-12-24 2022-12-24 Outpatient R NIDIA [facility] [id number] Univers 09:00:00 09:00:00 ANISA schmid o f [facility] 2022-07-16 2022-07-16 OFFICE STLMLC STLC [id number] Co mmon 00:00:00 00:00:00 VISIT [facility] LEVEL 4 [facility] 2022-06-29 2022-06-29 Emergency X [facility] ERT [id number] Univers 19:58:00 23:22:00 SIOBHAN schmid [facility] 2022-06-29 2022-06-29 [facility] 1.2.577.350 [id number] Univers 19:58:00 23:22:00 Siobhan ADAMS 350.1.13.10 ity of [place] 4.2.7.2.[address] [facility] [id number] [place] [id number] [place] 2022-06-13 2022-06-13 OFFICE STLMLC STLMLC [id number] Co mmon 00:00:00 00:00:00 VISIT Spirit ESTAB PT - CHI LEVEL 4 [facility] 2022-05-30 2022-05-30 Office [place], UNIV[place] 1.2.840.114 [id number] Univers 15:00:00 15:30:00 Visit Anderson R Y HEALTH 350.1.13.10 ity of [facility] [place] [id number] [address] 2022-05-30 2022-05-30 Outpatient R PEGGY, [facility] [id number] Univers 15:00:00 15:00:00 ANDERSON ity of [facility] 2022-05-30 2022-05-30 Outpatient R WOODS, [facility] [id number] Univers 13:01:05 13:00:00 ANDERSON ity [facility] 2022-05-15 2022-05-15 OFFICE STLMLC STLMLC [id number] Co mmon 00:00:00 00:00:00 VISIT Spirit ESTAB PT - CHI LEVEL 4 [facility] 2022-05-09 2022-05-09 Outpatient R PEGGY, [facility] [id number] Univers 16:00:00 16:47:57 ANDERSON ity [facility] 2022-05-09 2022-05-09 Office [place], UN[facility]IT 1.2.840.114 [id number] Univers 16:00:00 16:47:57 Visit Anderson R Y HEALTH 350.1.13.10 ity of [facility] [id number] [address] 2022-04-28 2022-04-29 Emergency X Jonnie ARRIAGA [facility] ERT [id number] Univers 23:27:00 03:35:00 ity of [facility] 2022-02-05 2022-02-05 [facility] [id number] Univers 14:00:00 14:00:00 ANDERSON ity [facility] 2022-01-25 2022-01-25 (TEL) STLMLC STLMLC [id number] Co mmon 00:00:00 00:00:00 Spirit - CHI [facility] 2022-01-22 2022-01-22 OFFICE STLMLC STLMLC [id number] Co mmon 00:00:00 00:00:00 VISIT Spirit ESTAB PT - CHI LEVEL 4 [facility] 2022-01-22 2022-01-22 SUB ANNUAL STLMLC STLMLC [id number] Common 00:00:00 00:00:00 MCR Spirit WELLNESS - CHI VISIT [facility] 2022-01-10 2022-01-10 [facility] [id number] Univers 00:00:00 00:00:00 ANDERSON ity [facility] 2021-12-08 2021-12-08 [facility]if [facility] 1.2.840.114 [id number] Univers 00:00:00 00:00:00 Anisa ELMER 350.1.13.10 ity of [facility] [id number] [address] 2021-10-16 2021-10-16 OFFICE STLMLC STLC [id number] Co mmon 00:00:00 00:00:00 VISIT Spirit ESTAB PT - CHI LEVEL 4 [facility] 2021-10-11 2021-10-11 [facility] 1.2.840.114 [id number] Univers 06:36:00 08:50:00 Encounter Divya ADAMS 350.1.13.10 ity of [place] [id number] [address] 2021-10-11 2021-10-11 [facility] [id number] Univers 06:36:00 08:50:00 DIVYA ity of [facility] 2021-10-11 2021-10-11 Surgery [facility] 1.2.840.114 [id number] Univers 08:00:00 08:34:00 Divya ADAMS 350.1.13.10 i ty of [place] [id number] [facility] 020 Branch 2021-10-09 2021-10-09 [facility] [id number] Univers 11:30:00 11:30:00 DIVYA schmid [facility] 2021-10-08 2021-10-08 Orders Doctor MARTIN 1.2.840.114 [id number] Univers 00:00:00 00:00:00 Only Unassigned, PRASAD 350.1.13.10 ity of [place] [facility] 4.2.7.2.686 Oneal as [id number] [facility] 009 Branch 2021-09-13 2021-09-13 [facility] 1.2.840.114 [id number] Univers 07:19:00 10:06:00 Encounter Divya Adams 350.1.13.10 ity of [place] [id number] [facility] 071 Branch 2021-09-13 2021-09-13 Surgery [facility] 1.2.840.114 [id number] Univers 09:14:00 09:51:00 Divya Adams 350.1.13.10 i ty of [place] [id number] [facility] 020 Branch 2021-09-11 2021-09-11 [facility] [id number] Univers 15:00:00 15:00:00 DIVYA schmid [facility] 2021-09-11 2021-09-11 Laboratory Only, Adc Test [facility] 1.2.840. 114 [id number] Univers 13:57:39 14:12:39 Only Divya Ruvalcaba 350.1.1 3.10 ity of [place] [id number] [facility] 353 Branch 2021-09-10 2021-09-10 Orders Doctor MARTIN 1.2.840.114 [id number] Univers 00:00:00 00:00:00 Only Unassigned, PRASAD 350.1.13.10 ity of [place] [facility] 4.2.7.2.686 [place] [id number] [facility] 009 Branch 2021-09-04 2021-09-04 Finisher Operator Shayla, [facility] 1.2.8 40.114 [id number] Univers 16:12:51 16:27:51 Visit Divya Ruvalcaba 350.1.1 3.10 ity of [place] Profess[place] [id number] Pa dical [facility] 353 [facility] 2021-09-04 2021-09-04 Outpatient R JORDON, [facility] [id number] Univers 16:15:00 16:15:00 DIVYA schmid of [facility] 2021-08-21 2021-08-21 OFFICE [facility] [id number] Co mmon 00:00:00 00:00:00 VISIT Spirit ESTAB PT - CHI LEVEL 4 [facility] 2021-07-12 2021-07-12 Kashif [place], UN[facility]ERSIT 1.2.840.114 [id number] Univers 00:00:00 00:00:00 Anderson R Y HEALTH 350.1.13.10 ity [place] [id number] [facility] [address] [place] 2021-07-10 2021-07-10 Office Peggy, UN[facility]ERSIT 1.2.840.114 [id number] Univers 13:10:23 13:40:23 Visit Anderson R Y HEALTH 350.1.13.10 it[place] [id number] [address] 2021-07-10 2021-07-10 [facility] [id number] Univers 13:00:00 13:00:00 ANDERSON ity of [facility] 2021-06-19 2021-06-19 Office Peggy, UNIVERSIT 1.2.840.114 [id number] Univers 11:57:23 13:30:49 Visit Anderson R Y HEALTH 350.1.13.10 it[place] [id number] [address] 2021-06-19 2021-06-19 [facility] [id number] Univers 00:00:00 00:00:00 ANDERSON ity of [facility] 2021-06-13 2021-06-13 Case Peggy, UN[facility]ERSIT 1.2.840.114 [id number] Univers 00:00:00 00:00:00 Management Anderson R Y HEALTH 350.1.13.10 it[place] [id number] [address] 2021-06-12 2021-06-12 [facility] [id number] Univers 00:00:00 00:00:00 ANDERSON ity of [facility] 2021-06-05 2021-06-05 Orders Doctor SALAZAR 1.2.840.114 [id number] Univers 00:00:00 00:00:00 Only Unassigned, PRASAD 350.1.13.10 ity of [place] [facility] 4.2.7.2.686 One[place] [id number] [address] 2021-06-04 2021-06-04 Sulaiman [place], [facility] 1.2.840.114 [id number] Univers 00:00:00 00:00:00 Management Anisa Y HEALTH 350.1.13.10 it[place] [id number] [address] 2021-05-30 2021-05-30 Office Peggy [facility] 1.2.840.114 [id number] Univers 10:39:57 11:52:22 Visit Anderson R Y HEALTH 350.1.13.10 it[place] [id number] [address] 2021-05-30 2021-05-30 [facility] [id number] Univers 11:00:00 11:00:00 ANDERSON ity of [facility] Branch 2021-05-29 2021-05-29 Telephone PAYTON CamIT 1.2.840.114 [id number] Univers 00:00:00 00:00:00 Divya PAYNE 350.1.13.10 ity of [place] [id number] [facility] 205 Branch 2021-05-28 2021-05-28 Hospital DorinaHoney 1.2.840.114 [id number] Univers 07:28:00 16:00:00 Encounter Divya Doe 350.1.13.[address] [facility] 4.2.7.2.686 [place] [phone] [facility] 104 Branch 2021-05-28 2021-05-28 Surgery CamHoney 1.2.840.114 [id number] Univers 10:27:00 12:52:00 Divya Doe 350.1.13.10 ity of Hospital 4.2.7.2.686 [place] [id number] [facility] 103 Branch 2021-05-28 2021-05-28 Orders Doctor SALAZAR 1.2.840.114 [id number] Univers 00:00:00 00:00:00 Only Unassigned, PRASAD 350.1.13.10 ity of [place] [facility] 4.2.7.2.686 [place] [id number] [facility] 009 Branch 2021-05-17 2021-05-17 [facility] 1.2.840.8 [id number] Univers 14:18:00 19:15:00 Encounter Anisa 00275.1.1 i ty of 3.104.2.7 [place] .3.113743 Medica l .8 Branch 2021-05-17 2021-05-17 Anesthesia Patricia [place] 1.2.840. 7 [id number] Univers 18:49:43 18:49:43 Event Yesenia Turner 10305.1.1 ity of 3.104.2.7 [place] .3.451033 Medica l .8 Branch 2021-05-17 2021-05-17 Orders Doctor MARTIN 1.2.840.114 [id number] Univers 00:00:00 00:00:00 Only Unassigned, PRASAD 350.1.13.10 ity of [place] [facility] 4.2.7.2.686 Oneal as [id number] [facility] 009 Branch 2021-05-14 2021-05-14 Travel 1.2.840.1 1.2.857.182 [id number] Univers 00:00:00 00:00:00 56459.1.1 350.1.13.10 ity of 3.104.2.7 [place].3.698 [place] .3.677609 084.8 Medica l .8 Branch 2021-04-26 2021-04-26 [facility] [id number] Common 00:00:00 00:00:00 [facility] 2021-04-24 2021-04-24 Office David Jacob2.840.2 [id number] Univers 08:26:32 09:33:54 Visit Anisa 77591.1.1 ity of 3.104.2.7 [place] .3.576129 Medica l .8 [place] 2021-04-24 2021-04-24 Outpatient R NIDIA [facility] [id number] Univers 08:30:00 08:30:00 ANISA schmid o f [facility] 2021-04-24 2021-04-24 Travel 1.2.840.1 1.2.416.875 [id number] Univers 00:00:00 00:00:00 52069.1.1 350.1.13.10 ity of 3.104.2.7 4[place].3.698 [place] .3.854035 084.8 Medica l .8 Branch 2021-04-18 2021-04-18 Orders Doctor 1.2.840.2 [id number] Univers 00:00:00 00:00:00 Only Unassigned, 53362.1.1 ity of [place] 3.104.2.7 [place] .3.848462 Medica l .8 Branch 2021-04-09 2021-04-09 Transition Jeyson, 1.2.840.5 [id number] Univers 00:00:00 00:00:00 of Care Matt Cervantes 55083.1.1 it y of 3.104.2.7 [place] .3.864637 Medica l .8 [place] 2021-04-05 2021-04-06 Outpatient X [facility] [id number] Univers 22:55:00 19:15:00 ANISA grullon [facility] 2021-04-05 2021-04-06 Emergency TriplettSun kwong S 1.2.840.1 [id number] Univers 22:55:00 19:15:00 Anisa Jacob 02106.1.1 ity of 3.104.2.7 [place] .3.082514 Medica l .8 [place] 2021-04-05 2021-04-05 Travel 1.2.840.1 1.2.920.163 [id number] Univers 00:00:00 00:00:00 15862.1.1 350.1.13.10 ity of 3.104.2.7 4[place].3.698 [place] .3.896758 084.8 Medica l .8 [place] 2021-04-03 2021-04-03 [facility] [id number] Univers 10:15:00 10:15:00 ANISA grullon [facility] 2021-03-30 2021-03-30 Office Irma Jacob.2.840.5 [id number] Univers 08:57:04 10:41:55 Visit Anisa 37619.1.1 ity of 3.104.2.7 [place] .3.447612 Medica l .8 [place] 2021-03-30 2021-03-30 [facility] [id number] Univers 09:00:00 09:00:00 ANISA grullon [facility] 2021-03-30 2021-03-30 Orders Doctor 1.2.840.1 [id number] Univers 00:00:00 00:00:00 Only Unassigned, 78921.1.1 ity of [place] 3.104.2.7 [place] .3.861075 Medica l .8 Branch 2021-03-30 2021-03-30 Travel 1.2.840.1 1.2.730.258 [id number] Univers 00:00:00 00:00:00 19623.1.1 350.1.13.10 ity of 3.104.2.7 4[place].3.698 [place] .3.066905 084.8 Medica l .8 Branch 2021-03-15 2021-03-15 Orders Doctor MARTIN 1.2.840.114 [id number] 00:00:00 00:00:00 Only Unassigned, PRASAD 350.1.13.10 [place] [facility] 4.2.7.2.686 [id number] 009 2021-03-15 2021-03-15 Orders Doctor 1.2.840.9 [id number] Univers 00:00:00 00:00:00 Only Unassigned, 71790.1.1 ity of [place] 3.104.2.7 [place] .3.268077 Medica l .8 [place] 2021-02-26 2021-02-26 Outpatient STLC STLC [id number] Common 00:00:00 00:00:00 [facility] 2021-02-19 2021-02-19 [facility] [id number] Common 00:00:00 00:00:00 [facility] 2021-02-19 2021-02-19 Orders Doctor MARTIN 1.2.840.114 [id number] Univers 00:00:00 00:00:00 Only Unassigned, PRASAD 350.1.13.10 ity of [place] [facility] 4.2.7.2.686 Oneal as [id number] [facility] 009 Branch 2021-02-16 2021-02-16 Outpatient STLC STLC [id number] Common 00:00:00 00:00:00 [facility] 2021-02-15 2021-02-15 Outpatient STLMLC STLMLC [id number] Common 00:00:00 00:00:00 [facility] 2019-01-21 2019-01-21 Out[facility] [id number] Common 10:45:00 10:45:[address] [facility] 2019-01-14 2019-01-14 Outpatient [facility] [id number] Common 13:44:00 13:44:[address] [facility] 2018-08-07 2018-08-07 Outpatient [facility] [id number] Common 11:01:00 11:01:[address] [facility] 2018-08-06 2018-08-06 Outpatient [facility] [id number] Common 15:30:00 15:30:[address] [facility] 2018-07-13 2018-07-13 Outpatient [facility] [id number] Common 23:04:00 23:04:[address] [facility] 2018-07-09 2018-07-09 Outpatient [facility] [id number] Common 10:00:00 10:00:[address] [facility] 2018-04-09 2018-04-09 Outpatient [facility] [id number] Common 21:34:00 21:34:[address] [facility] 2018-04-09 2018-04-09 Outpatient [facility] [id number] Common 13:15:00 13:15:[address] [facility] Results Test Description Test Time Test Comments Results Result Comments Source HEMOGLOBIN A1C 2022-05-15 00:00:00 Test Item Value Reference Range Interpretation Comme nts A1C (test code = 4548-4) 14.0 HEMOGLOBIN [id number] 00:00:00 Test Item Value Reference Range Interpretation Comments A1C (test code = 4548-4) 10.8 HEMOGLOBIN [id number] 00:00:00 Test Item Value Reference Range Interpretation Comments A1C (test code = 4548-4) 8.2% HEMOGLOBIN [id number] 00:00:00 Test Item Value Reference Range Interpretation Comments A1C (test code = 4548-4) 8.6
[2022-12-05] MEDS ORDERED: HYDROCODONE/APAP 5/325 MG TAB ONE (13:52)
[2022-12-05] MEDS ORDERED: DIAZEPAM 5 MG TABLET ONE (13:52)
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
[2022-12-05 14:45] VITALS: BP 203/80; TEMP 97.8; O2SAT 98
== END 2022-12-05 14:39 | disposition home or self-care (01) ==
LOC: ER 13:09
DX: M54.2 Cervicalgia (principal); R51.9 Headache, unspecified; V59.59XA Passenger in pick-up truck or van injured in collision with other motor vehicles in traffic accident, initial encounter; I10 Essential (primary) hypertension; E11.9 Type 2 diabetes mellitus without complications
CPT/HCPCS: 70450; 72125; 99284

== ENCOUNTER 2022-12-07 15:38 | Emergency (ER) | payer OTHER ==
--- OUTSIDE RECORDS SUMMARY | 2022-12-07 15:43 | XMS REPORT | Continuity of Care Document ---
:1955 Author Organization [facility] t Address [address] [place] [address] Dr. Mckenzie [address] [place] [address] Care Team Providers Name Role Phone PCP, PATIENT DOES NOT HAVE A Primary Care Physician UnavailGloria Renner Attending Clinician Unavailable IDVYA RUVALCABA Attending Clinician Unavailable DIVYA CAM JR Attending Clinician Unavailable ANISA JACOB Attending Clinician Unavailable SIOBHAN PEREIRA Attending Clinician Unavailable Siobhan Pereira MD Attending Clinician Anderson Malave Attending Clinician ANDERSON WOODS Attending Clinician Unavailable Jonnie ARRIAGA Attending Clinician Unavailable Anisa Jacob MD Attending Clinician Divya Ruvalcaba MD Attending Clinician Doctor Unassigned, [place] Attending Clinician Unavailable Only, Adc Test Attending Clinician Unavailable Pob, Adc Lab Main Attending Clinician Unavailable Dorina Simental MD, Michael B Attending Clinician Patricia Martin MD Attending Clinician [phone] Yesenia Turner RN Attending Clinician Unavailable Matt Benítez RN Attending Clinician Unavailable Sun Elam Attending Clinician DIVYA RUVALCABA Admitting Clinician Unavailable DIVYA CAM JR Admitting Clinician Unavailable ANISA JACOB Admitting Clinician Unavailable SIOBHAN PEREIRA Admitting Clinician Unavailable Jonnie ARRIAGA Admitting Clinician Unavailable Divya Ruvalcaba MD Admitting Clinician Dorina Simental MD, Michael B Admitting Clinician Anisa Jacob MD Admitting Clinician Payers Payer Name Policy Type Policy Number Effective Date Expiration Date S andrei WELLMED/AARP [id number] 2021 MEDICARE 00:00:00 ADVANTAGE AARP [facility] 53 [id number] 2020 [facility] ADVANTAGE 00:00:[address] [facility] MEDICARE MB [id number] 2020 [facility] NOVITAS 00:00:[address] [facility] MEDICARE MB [id number] 2020 [facility] NOVITAS 00:00:00 - [facility] [id number] 2017 HEALTH CHOICE 00:00:00 Problems Condition Condition Condition Status Onset Resolution Last Treating Co mments Source Name Details Category Date Date Treatment Clinician Date Peripheral Peripheral Disease Active Overview : Univers arterial arterial 04-24 Formattin ity of disease disease 00:00: g of this [place] note Medical might be Branch different from the original. Added automatic ally from request for surgery [id number] Neuropathy Neuropathy Disease Active Overview : Univers 5-25 Formattin ity of 00:00: g of this note Medical might be Branch different from the original. Added automatic ally from request for surgery [id number] PAD PAD Disease Active Univers (periphera (periphera 04-06 it y of l artery l artery 00:00: [place] disease) disease) 00 Medica l Branch Type 2 Type 2 Disease Active [facility] diabetes diabetes 9-18 ity of mellitus mellitus 00:00: [place] with with 00 Medical complicati complicati Br anch on, on, without without long-term long-term current current use of use of insulin insulin Dyslipidem Dyslipidem Disease Active U nivers ia ia 9-18 ity of 00:00: [address] Branch Elevated Elevated Disease Active Unive rs ALT ALT 08-18 ity of measure[place] Medical [place] [id number] Current Problem Active Common moderate Spirit episode of - [facility] major [facility] without Center prior episode [id number] Chronic Problem Active Common fatigue [facility] [id number] Chronic Problem Active Commo n pain Spirit syndrome - [facility] [id number] Skin Problem Active Common lesion [facility] [id number] Anemia, Problem Active Commo n unspecifie Spirit d type [facility] [id number] Nonintract Problem Active Com mon able Spirit headache, - [facility] unspecie [facility] chronicity Medica l pattern, Center unspecifie d headache type [id number] Mixed Problem Active Common hyperlipid Spirit emia [facility] [id number] Uncontroll Problem Active Co mmon ed type 2 Spirit diabetes - CHI mellitus [facility] complicati Medica l on, Center without long-term current use of insulin [id number] 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 [facility] [place] - [facility] artery of [facility] Center with intermitte nt claudicati on [id number] Polyarthra Problem Active Com mon lgia [facility] [id number] Abnormal Problem Active Commo n liver [facility] function [facility] [id number] Vitamin D Problem Active Comm on deficiency [facility] [id number] Essential Problem Active Comm on hypertensi Spirit on [facility] [id number] Gastroesop Problem Active Co mmon hageal Spirit reflux - [facility] Med[facility] not Center specified Allergies, Adverse Reactions, Alerts Allergy Allergy Status Severity Reaction(s) Onset Inactive Treating Comm ents Source Name Type Date Date Clinician NO KNOWN Drug Active Univers ALLERGIE Class ity of S [facility] Social History Social Habit Start Date Stop Date Quantity Comments Source History of [facility] - Tobacco Use [facility] Sex Assigned At [facility] gillian - [facility] Exposure to 2022-06-19 2022-06-29 Not sure University of SARS-CoV-2 00:00:00 20:04:00 [facility] (event) Branch Tobacco use and 2021-04-06 2021-04-06 Smokeless tobacco Un iversity of exposure 00:00:00 00:00:00 non-user [facility] Smoking Status Start Date Stop Date Source Never Smoker [facility] - [facility] Medications Ordered Filled Start Stop Current Ordering Indication Dosage Frequency Signature Comments Components Source Medication Medication Date Date Medication? Clinician (SIG) Name Name Vitamin B12 Vitamin B12 No 1000ug Common (Cyanocobal (Cyanocobal 8-16 S pirit riggs) riggs) 00:00: - CHI 00 [facility] NaCl 0.9% No 500mL at 999 Univ ers (NS) bolus 06-30 mL/hr, 500 it y of infusion 01:30: 04:00 mL, IV [place] 500 mL 00 :00 Infusion, Medical ONCE, 1 Branch dose, On 06/29/22 at 2029, STAT diphenhydrA 2021- No 25mg 25 mg, Uni vers MINE 06-30 Slow IV ity of (BENADRYL) 01:30: 01:48 Push, [place] injection 00 :00 ONCE, 1 Medical 25 mg dose, On Branch 06/29/22 at 2030, STAT metoclopram 2021- No 10mg 10 mg, Uni vers ana HCl 06-30 Slow IV ity of (REGLAN) 01:30: 01:48 Push, [place] injection 00 :00 ONCE, 1 Medical 10 mg dose, On Branch 06/29/22 at 2030, ZARI ondansetron Yes [id number] 4mg Take 1 Univers (ZOFRAN) 4 7-30 [...] 7-10). Indication s: acute pain butalbital- Yes [id number] 1{tbl} Take 1 Univers acetaminoph 7-30 tablet by ity of en-caff 00:00: mouth [place] 50-325-40 00 every 6 Medical mg tablet (six) Branch hours as needed (Headache) . butalbital- 2021- No [id number] 1{tbl} Take 1 Univers acetaminoph 7-30 07-30 [...] t} HCl 25 MG 00:00: 00 empaglifloz 2021- Yes 10mg Take 10 mg Univers in 6-30 by mouth ity of (JARDIANCE) 14:30: [place]. [place] 10 mg 22 Medical Branch DULoxetine Yes 1{capsu Take 1 Un parish 30 mg CDRS 6-30 le} capsule by ity of 14:30: mouth 2 [place] [address] [facility] Medical times Branch daily. empaglifloz Yes 10mg Take 10 mg Univers in 6-30 by mouth ity of (JARDIANCE) 14:30: [place]. [place] 10 mg 22 Medical Branch DULoxetine Yes 1{capsu Take 1 Un parish 30 mg CDRS 6-30 le} capsule by ity of 14:30: mouth 2 [place] [address] (two) Medical times Branch daily. Jardiance Jardiance 2021-0 2021- No 1{table QD Jardiance 10 MG 10 MG 6-15 07-15 t} 10 MG 00:00: 00:00 00 :00 pioglitazon 2021-0 Yes 15mg Take 15 mg Univers e 15 mg 6-09 by mouth ity of tablet 16:17: daily. [address] gabapentin 2021-0 Yes 100mg Take 100 Un parish 100 mg 6-09 mg by ity of capsule 16:17: mouth 3 [place] [address] (three) Medical times Mona daily. lisinopriL 2022-0 Yes 10mg Take 10 mg U nivers 10 mg 6-09 by mouth ity of tablet 16:17: daily. [place] [address] Medical Branch rosuvastati 2022-0 Yes 20mg Take 20 mg Univers n 20 mg 6-09 by mouth ity of tablet 16:17: at [place] [address] bedtime. Medical Branch pioglitazon 2021-0 Yes 15mg Take 15 mg Univers e 15 mg 6-09 by mouth ity of tablet 16:17: daily. [place] [address] Medical Branch gabapentin 2021-0 Yes 100mg Take 100 Un parish 100 mg 6-09 mg by ity of capsule 16:17: mouth 3 [place] [address] (three) Medical times Mona daily. lisinopriL 2021-0 Yes 10mg Take 10 mg U nivers 10 mg 6-09 by mouth ity of tablet 16:17: daily. [address] Branch rosuvastati 2021-0 Yes 20mg Take 20 mg Univers n 20 mg 6-09 by mouth ity of tablet 16:17: at [place] [address] bedtime. Medical Branch glimepiride 2021-0 Yes 4mg Take 4 mg U nivers 4 mg tablet 6-09 by mouth ity of 16:14: daily with [place] [address] breakfast. Medical Branch Insulin 2021-0 Yes inject Univers Glargine 6-09 under the ity of (LANTUS 16:14: skin. [address] U-100 [place] INSULIN) 100 unit/mL (3 mL) injection metFORMIN 2021-0 Yes 1000mg Take 1,000 Univers 1,000 mg 6-09 mg by ity of tablet 16:14: mouth 2 [place] [address] (two) [facility] daily with meals. glimepiride 2021-0 Yes 4mg Take 4 mg U nivers 4 mg tablet 6-09 by mouth ity of 16:14: daily with [place] [address] breakfast. Medical Branch Insulin 0 Yes inject Univers Glargine 6-09 under the ity of (LANTUS 16:14: skin. [address] U-100 [place] INSULIN) 100 unit/mL (3 mL) injection metFORMIN 2021-0 Yes 1000mg Take 1,000 Univers 1,000 mg 6-09 mg by ity of tablet 16:14: mouth 2 [place] 17 (two) Medical times Branch daily with [...] ORAL) 10 Medical Branch ergocalcife 2020-12 Yes [id number] Take Univ ers rol, 1-11 50,000 ity of vitamin d2, 08:53: Units [place] (VITAMIN 10 mouth Medical D2) 50,000 weekly. Branch unit capsule metFORMIN 2020-12 Yes 500mg Take 500 Uni vers 500 mg 1-11 mg by ity of tablet 08:53: mouth 2 [place] 10 (two) Medical times Branch daily with meals. meloxicam 2020-12 Yes 7.5mg Take 7.5 Uni vers 7.5 mg 1-11 mg by ity of tablet 08:53: mouth [place] 10 daily. Medical Branch pioglitazon 2020-12 Yes 30mg Take 30 mg Univers e 30 mg 1-11 by mouth ity of tablet 08:53: daily. [address] Branch dicyclomine 2020-12 Yes 200mg Take 200 U nivers HCl 1-11 mg by ity of (DICYCLOMIN 08:53: [place]. [place] E ORAL) [address] [place] [address] Branch ergocalcife 2020-12 Yes [id number] Take Univ ers rol, 1-11 50,000 ity of vitamin d2, 08:53: Units [place] (VITAMIN 10 mouth Medical D2) 50,000 weekly. Branch unit capsule metFORMIN 2020-12 Yes 500mg Take 500 Uni vers 500 mg 1-11 mg by ity of tablet 08:53: mouth 2 [place] [address] (two) Medical times Branch daily with meals. meloxicam 2020-12 Yes 7.5mg Take 7.5 Uni vers 7.5 mg 1-11 mg by ity of tablet 08:53: mouth [place] 10 daily. [facility] Branch pioglitazon 2020-12 Yes 30mg Take 30 mg Univers e 30 mg 1-11 by mouth ity of tablet 08:53: daily. [address] Rollator Rollator No Rollator walker n/s walker n/s 08-28 walker n/s 00:00: 00 Pioglitazon Pioglitazon 0 No 1{table QD Pioglitazo e HCl 30 MG e HCl 30 MG 9-21 t} ne HCl 30 00:00: MG 00 Pioglitazon Pioglitazon 0 No 1{table QD Pioglitazo e HCl 30 MG e HCl 30 MG 9-21 t} ne HCl 30 00:00: MG 00 MINOCYCLINE 2020-0 Yes [id number] TAKE 1 Univers 100 mg 8-24 CAPSULE BY ity of capsule 00:00: MOUTH [place] 00 EVERY 12 Medical HOURS FOR Branch 7 DAYS MINOCYCLINE 2020-0 Yes [id number] TAKE 1 Univers 100 mg 8-24 CAPSULE BY ity of capsule 00:00: MOUTH [place] 00 EVERY 12 Medical HOURS FOR Branch 7 DAYS Contour Contour No Contour Next Test - Next Test - 06-26 Next Test 00:00: - 00 Contour Contour 0 No Contour Next Test - Next Test [...] 18 doses. Indication s: acute pain Pen [place] Pen [place] 2020-0 No QD Pen 5/16" 31G X 5/16" 31G X 5-27 [place] 8 MM 8 MM 00:00: 5/16" 31G 00 X 8 MM Lisinopril Lisinopril 2020-0 No 1{table QD Lisinopril 10 MG 10 MG 5-27 t} 10 MG 00:00: 00 Pen [place] Pen [place] 2020-0 No QD Pen 5/16" 31G X 5/16" 31G X 5-27 [place] 8 MM 8 MM 00:00: 04/15" 31G 00 X 8 MM Lisinopril Lisinopril 2021-0 No 1{table QD Lisinopril 10 MG 10 MG 5-27 t} 10 MG 00:00: 00 Pen [place] Pen [place] 2020-0 No QD Pen 04/15" 31G X 5/16" 31G X 5-27 [place] 8 MM 8 MM 00:00: 04/15" 31G 00 X 8 MM Lisinopril Lisinopril 2021-0 No 1{table QD Lisinopril 10 MG 10 MG 5-27 t} 10 MG 00:00: 00 Lisinopril Lisinopril 2021-0 No 1{table QD Lisinopril 10 MG 10 MG 5-27 t} 10 MG 00:00: 00 Pen [place] Pen [place] 2020-0 No QD Pen 04/15" 31G X 5/16" 31G X 5-27 [place] 8 MM 8 MM 00:00: 04/15" 31G 00 X 8 MM Pen [place] Pen [place] 2020-0 No QD Pen 04/15" 31G X 5/16" 31G X 5-27 [place] 8 MM 8 MM 00:00: 04/15" 31G 00 X 8 MM Lisinopril Lisinopril 2021-0 No 1{table QD Lisinopril 10 MG 10 MG 5-27 t} 10 MG 00:00: 00 Pen [place] Pen [place] 2020-0 No QD Pen 04/15" 31G X 5/16" 31G X 5-27 [place] 8 MM 8 MM 00:00: 04/15" 31G 00 X 8 MM Lisinopril Lisinopril 2021-0 No 1{table QD Lisinopril 10 MG 10 MG 5-27 t} 10 MG 00:00: 00 Pen [place] Pen [place] 2020-0 No QD Pen 04/15" 31G X 5/16" 31G X 5-27 [place] 8 MM 8 MM 00:00: 04/15" 31G 00 X 8 MM Lisinopril Lisinopril 2021-0 No 1{table QD Lisinopril 10 MG 10 MG 5-27 t} 10 MG 00:00: 00 Pen [place] Pen [place] 2020-0 No QD Pen 04/15" 31G X 5/16" 31G X 5-27 [place] 8 MM 8 MM 00:00: 516" 31G 00 X 8 MM Lisinopril Lisinopril No 1{table QD Lisinopril 10 MG 10 MG 5-27 t} 10 MG 00:00: 00 aspirin 81 2020-0 Yes [id number] 81mg Take 1 Univers mg chewable 5-08 tablet by ity of tablet 00:00: mouth [place] 00 daily. Medical Branch aspirin 81 0 Yes [id number] 81mg Take 1 Univers mg chewable 5-08 [...] HCl -07 [place] [facility] 00:00: - [facility] Januvia Januvia Yes [place] 1 tablet Co mmon 06 [place] [facility] 00:00: - CHI 00 [facility] Ondansetron Ondansetron Yes [place] 1 tablet Common HCl HCl 9-06 [place] as needed Spiri t 00:00: for - CHI nausea/vom [facility] Lancets Lancets Yes Kam[place] as Common 5-10 [place] directed; Spiri t 00:00: dispense - CHI lancets [facility] to [facility] BL Blood BL Blood Yes Kam[place] As Comm on Glucose Glucose 5-10 [place] directed; Spirit Monitor Kit Monitor Kit 00:00: DISPENSE - CHI 00 BG MONITOR [facility] blood blood 2019- No Kamala as Common glucose glucose 5-10 08-03 [place] directed; Spirit test strip test strip 00:00: 00:00 DISPENSE - CHI 00 :[address] [facility] INSURANCE Glimepiride Glimepiride Yes [place] 1 tablet Common [place] Spirit [facility] Gabapentin Gabapentin Yes [place] 1 capsule Common Mill[place] [facility] Cyclobenzap Cyclobenzap Yes [place] 1 tablet Common rine HCl rine HCl [place] as needed Spirit [facility] Mobic Mobic Yes [place] 1 tablet Common [place] Spirit [facility] Metformin Metformin Yes Kamala 1 tablet Common HCl HCl [place] with a Spirit meal [facility] Aspirin 81 Aspirin 81 No 1{table QD [...] Spirit - OVER 65 OVER 65 14:11:00 [facility] FLUZONE HIGH DOSE FLUZONE HIGH DOSE 2021-10-16 Completed [facility] - OVER 65 OVER 65 14:11:00 [facility] FLUZONE HIGH DOSE FLUZONE HIGH DOSE 2021-10-16 Completed [facility] - OVER 65 OVER 65 14:11:00 [facility] FLUZONE HIGH DOSE FLUZONE HIGH DOSE 2021-10-16 Completed [facility] - OVER 65 OVER 65 14:11:00 [facility] FLUZONE HIGH DOSE FLUZONE HIGH DOSE 2021-10-16 Completed [facility] - OVER 65 OVER 65 14:11:00 [facility] FLUZONE HIGH DOSE FLUZONE HIGH DOSE 2021-10-16 Completed [facility] - OVER 65 OVER 65 14:11:00 [facility] FLUZONE HIGH DOSE FLUZONE HIGH DOSE 2021-10-16 Completed [facility] - OVER 65 OVER 65 14:11:00 [facility] COVID-19 Vaccine COVID-19 Vaccine 2021-02-19 Completed Co mmon Spirit - (Brett) (Brett) 14:31:00 [facility] COVID-19 Vaccine COVID-19 Vaccine 2021-02-19 Completed Co mmon Spirit - (Brett) (Brett) 14:31:00 [facility] COVID-19 Vaccine COVID-19 Vaccine 2021-02-19 Completed Co mmon Spirit - (Brett) (Brett) 14:31:00 [facility] COVID-19 Vaccine COVID-19 Vaccine 2021-02-19 Completed Co mmon Spirit - (Brett) (Brett) 14:31:00 [facility] COVID-19 Vaccine COVID-19 Vaccine 2021-02-19 Completed Co mmon Spirit - (Brett) (Brett) 14:31:00 [facility] COVID-19 Vaccine COVID-19 Vaccine 2021-02-19 Completed Co mmon Spirit - (Brett) (Brett) 14:31:00 [facility] COVID-19 Vaccine COVID-19 Vaccine 2021-02-19 Completed Co mmon Spirit - (Brett) (Brett) 14:31:00 [facility] COVID-19 Vaccine COVID-19 Vaccine 2021-02-19 Completed Co mmon Spirit - (Brett) (Brett) 14:31:00 [facility] SARS-COV-2 COVID-19 2021-02-19 Completed Unive rsity of BRETT/J&J VACCINE 00:00:00 [facility] SARS-COV-2 COVID-19 2021-02-19 Completed Unive rsity of BRETT/J&J VACCINE 00:00:00 [facility] Vital Signs Vital Name Observation Time Observation Value Comments Source height 2022-07-16 13:00:00 56 [in_i] Common [facility] weight 2022-07-16 13:00:00 97.8 [lb_av] [facility] temperature 2022-07-16 13:00:00 98.2 [degF] [facility] bmi 2022-07-16 13:00:00 21.92 kg/m2 [facility] oximetry 2022-07-16 13:00:00 100 % [facility] respiratory rate 2022-07-16 13:00:00 16 /min Comm on Spirit [facility] blood pressure 2022-07-16 13:00:00 138 mm[Hg] Common [facility] systolic [facility] blood pressure 2022-07-16 13:00:00 88 mm[Hg] Common [facility] diastolic [facility] Systolic blood 2022-06-30 04:00:00 149 mm[Hg] Univer sity of [facility] Diastolic blood 2022-06-30 04:00:00 61 mm[Hg] Unive rsity of [facility] Heart rate 2022-06-30 04:00:00 92 /min [facility] Respiratory rate 2022-06-30 04:00:00 18 /min [facility] Oxygen saturation in 2022-06-30 04:00:00 98 /min [facility] Arterial blood by [facility] Pulse oximetry Branch Body temperature 2022-06-30 01:07:00 38.22 [facility]vanthi [facility] height 2022-06-30 01:07:00 144.8 cm [facility] Body weight 2022-06-30 01:07:00 47.174 kg [facility] BMI 2022-06-30 01:07:00 22.51 kg/m2 [facility] height 2022-06-13 13:00:00 [facility] weight 2022-06-13 13:00:00 98.6 [lb_av] [facility] temperature 2022-06-13 13:00:00 97.2 [degF] Common [facility] bmi 2022-06-13 13:00:00 22.1 kg/m2 Common S [facility] oximetry 2022-06-13 13:00:00 97 % Common S [facility] respiratory rate 2022-06-13 13:00:00 16 /min Comm on Spirit - [facility] blood pressure 2022-06-13 13:00:00 136 mm[Hg] [facility] - systolic [facility] blood pressure 2022-06-13 13:00:00 69 mm[Hg] Common [facility] - diastolic [facility] Systolic blood 2022-05-30 19:32:00 140 mm[Hg] Univer sity of [facility] Diastolic blood 2022-05-30 19:32:00 75 mm[Hg] Unive rsity [facility] Heart rate 2022-05-30 19:30:00 71 /min [facility] Body temperature 2022-05-30 19:30:00 37.06 [facility]hi [facility] height 2022-05-30 19:30:00 147.3 cm [facility] Body weight 2022-05-30 19:30:00 43.999 kg [facility] BMI 2022-05-30 19:30:00 20.27 kg/m2 [facility] Oxygen saturation in 2022-05-30 19:30:00 100 /min [facility] Arterial blood by [facility] oximetry Branch height 2022-05-15 13:00:00 57 [in_i] Common [facility] weight 2022-05-15 13:00:00 99.8 [lb_av] [facility] temperature 2022-05-15 13:00:00 98.4 [degF] Common [facility] bmi 2022-05-15 13:00:00 21.59 kg/m2 [facility] oximetry 2022-05-15 13:00:00 96 % Common S pirit - [facility] respiratory rate 2022-05-15 13:00:00 16 /min Comm on [facility] - [facility] blood pressure 2022-05-15 13:00:00 164 mm[Hg] [facility] - systolic [facility] blood pressure 2022-05-15 13:00:00 76 mm[Hg] [facility] - diastolic [facility] height 2022-01-22 15:40:00 57 [in_i] Common S pirit - [facility] weight 2022-01-22 15:40:00 110 [lb_av] Common S pirit [facility] temperature 2022-01-22 15:40:00 97.2 [degF] Common S pirit [facility] bmi 2022-01-22 15:40:00 23.80 kg/m2 [facility] oximetry 2022-01-22 15:40:00 98 % Common S pirit - [facility] blood pressure 2022-01-22 15:40:00 138 mm[Hg] [facility] - systolic [facility] blood pressure 2022-01-22 15:40:00 74 mm[Hg] [facility] - diastolic [facility] height 2022-01-22 16:00:00 57 [in_i] Common S pirit [facility] weight 2022-01-22 16:00:00 110 [lb_av] Common S pirit [facility] temperature 2022-01-22 16:00:00 97.2 [degF] Common S pirit - [facility] bmi 2022-01-22 16:00:00 23.80 kg/m2 Common S pirit [facility] oximetry 2022-01-22 16:00:00 98 % Common S pirit [facility] blood pressure 2022-01-22 16:00:00 138 mm[Hg] [facility] - systolic [facility] blood pressure 2022-01-22 16:00:00 74 mm[Hg] [facility] - diastolic [facility] height 2021-10-16 13:40:00 57 [in_i] [facility] weight 2021-10-16 13:40:00 109.4 [lb_av] [facility] temperature 2021-10-16 13:40:00 98.2 [degF] [facility] bmi 2021-10-16 13:40:00 23.67 kg/m2 [facility] oximetry 2021-10-16 13:40:00 99 % [facility] respiratory rate 2021-10-16 13:40:00 16 /min Comm on [facility] blood pressure 2021-10-16 13:40:00 140 mm[Hg] [facility] systolic [facility] blood pressure 2021-10-16 13:40:00 76 mm[Hg] [facility] diastolic [facility] height 2021-08-21 14:40:00 57 [in_i] [facility] weight 2021-08-21 14:40:00 112.4 [lb_av] [facility] temperature 2021-08-21 14:40:00 97.0 [degF] [facility] bmi 2021-08-21 14:40:00 24.32 kg/m2 [facility] oximetry 2021-08-21 14:40:00 98 % [facility] respiratory rate 2021-08-21 14:40:00 16 /min Comm on [facility] Procedures Procedure Date / Time Performing Clinician Source Performed URINALYSIS 2022-06-30 03:06:00 Siobhan Pereira [facility] CT HEAD WO CONTRAST 2022-06-30 01:47:00 Siobhan Pereira [facility] LIPASE 2022-06-30 01:32:00 Siobhan Pereira [facility] TROPONIN I 2022-06-30 01:32:00 Siobhan Pereira [facility] COMP. METABOLIC PANEL 2022-06-30 01:32:00 Siobhan Pereira [facility] ([id number]) Medical Branch CBC WITH DIFF 2022-06-30 01:32:00 Siobhan Pereira [facility] PROTHROMBIN TIME / INR 2022-06-30 01:32:00 Siobhan Pereira [facility] Medical Branch COVID-19 (ID NOW RAPID 2022-06-30 01:32:00 Siobhan Pereira [facility] TESTING) Medical Branch CONSENT/REFUSAL FOR 2022-06-30 00:48:26 Doctor Unassigned, No Un [facility] DIAGNOSIS AND TREATMENT Name Medical Branch Encounters Start End Encounter Admission Attending Care Care Encounter Source Date/Time Date/Time Type Type Clinicians Facility Department ID 2022-08-12 Outpatient [place], STLMLC STLMLC [id number] Common 13:25:00 Gloria [facility] 2022-07-12 Outpatient Harrison, STLMLC STLMLC [id number] Common 09:03:00 Gloria [facility] 2021-12-26 Outpatient Harrison, STLMLC STLMLC [id number] Common 14:35:38 Gloria [facility] 2021-12-26 Outpatient Harrison, STLMLC STLMLC [id number] Common 14:07:57 Gloria 22106 [facility] 2021-12-26 Outpatient Harrison, STLMLC STLMLC [id number] Common 13:58:41 Gloria 06143 [facility] 2021-12-26 Outpatient Harrison, STLMLC STLMLC [id number] Common 13:26:23 Gloria 29012 [facility] 2021-12-26 Outpatient Harrison, STLMLC STLMLC [id number] Common 13:07:52 Gloria 04104 [facility] 2021-12-26 Outpatient Harrison, STLMLC STLMLC [id number] Common 12:46:22 Gloria 54576 [facility] 2021-12-26 Outpatient Harrison, STLMLC STLMLC [id number] Common 12:45:46 Gloria 13070 [facility] 2021-12-26 Outpatient Harrison, STLMLC STLMLC [id number] Common 12:43:16 Gloria 62136 [facility] 2021-12-26 Outpatient Harrison, STLMLC STLMLC [id number] Common 12:42:46 Gloria 12706 [facility] 2021-12-26 Outpatient Harrison, STLMLC STLMLC [id number] Common 12:41:53 Gloria 28386 [facility] 2021-12-26 Outpatient Harrison, STLMLC STLMLC [id number] Common 12:41:21 Gloria 44700 [facility] 2021-12-26 Outpatient STLMLC STLMLC [id number] Common 12:25:33 [id number] [facility] 2021-10-02 Outpatient Debra RUVALCABA [facility] OPH [id number] Univers 03:38:45 DIVYA [facility] 2021-10-01 [facility] [id number] Univers 02:10:08 DIVYA [facility] 2021-09-30 [facility] [id number] Univers 21:11:03 ANISA schmid [facility] 2021-09-30 Emergency [facility] [id number] Univers 17:40:10 [facility] 2022-12-24 2022-12-24 Outpatient R NIDIA [facility] [id number] Univers 09:00:00 09:00:00 ANISA schmid o f [facility] 2022-07-16 2022-07-16 OFFICE STLMLC STLC [id number] Co mmon 00:00:00 00:00:00 VISIT [facility] LEVEL 4 [facility] 2022-06-29 2022-06-29 Emergency X [facility] ERT [id number] Univers 19:58:00 23:22:00 SIOBHAN schmid [facility] 2022-06-29 2022-06-29 Emergency [facility] [id number] Univers 19:58:00 23:22:00 Siobhan ADAMS 350.1.13.10 it[place] [id number] [place] [id number] [place] 2022-06-13 2022-06-13 OFFICE STLMLC STLMLC [id number] Co mmon 00:00:00 00:00:00 VISIT Spirit ESTAB PT - CHI LEVEL 4 [facility] 2022-05-30 2022-05-30 Office [place], [place] 1.2.840.114 [id number] Univers 15:00:00 15:30:00 Visit Anderson R Y HEALTH 350.1.13.10 ity of [facility] [place].2.[place] [id number] [address] 2022-05-30 2022-05-30 Outpatient R PEGGY, [facility] [id number] Univers 15:00:00 15:00:00 ANDERSON ity [facility] 2022-05-30 2022-05-30 Outpatient R WOODS, [facility] [id number] Univers 13:01:05 13:00:00 ANDERSON ity [facility] 2022-05-15 2022-05-15 OFFICE STLMLC STLMLC [id number] Co mmon 00:00:00 00:00:00 VISIT Spirit ESTAB PT - CHI LEVEL 4 [facility] 2022-05-09 2022-05-09 Outpatient R WOODS, [facility] [id number] Univers 16:00:00 16:47:57 ANDERSON ity [facility] 2022-05-09 2022-05-09 Office [place], [place] 1.2.840.114 [id number] Univers 16:00:00 16:47:57 Visit Anderson R Y HEALTH 350.1.13.10 ity of [facility] [place] [id number] [address] 2022-04-28 2022-04-29 Emergency X BART K [facility] ERT [id number] Univers 23:27:00 03:35:00 ity of [facility] 2022-02-05 2022-02-05 Outpatient R PEGGY, [facility] [id number] Univers 14:00:00 14:00:00 ANDERSON ity [facility] 2022-01-25 2022-01-25 (TEL) STLMLC STLMLC [id number] Co mmon 00:00:00 00:00:00 Spirit - CHI [facility] 2022-01-22 2022-01-22 OFFICE STLMLC STLMLC [id number] Co mmon 00:00:00 00:00:00 VISIT Spirit ESTAB PT - CHI LEVEL 4 [facility] 2022-01-22 2022-01-22 SUB ANNUAL STLMLC STLMLC [id number] Common 00:00:00 00:00:00 MCR Spirit WELLNESS - CHI VISIT [facility] 2022-01-10 2022-01-10 [facility] [id number] Univers 00:00:00 00:00:00 ANDERSON ity [facility] 2021-12-08 2021-12-08 Kashif Jacob, [facility] 1.2.840.114 [id number] Univers 00:00:00 00:00:00 Anisa PAYNE 350.1.13.10 ity of [facility] 4[place] [id number] [address] 2021-10-16 2021-10-16 OFFICE STLMLC STLMLC [id number] Co mmon 00:00:00 00:00:00 VISIT Spirit ESTAB PT - CHI LEVEL 4 [facility] 2021-10-11 2021-10-11 [facility] 1.2.840.114 [id number] Univers 06:36:00 08:50:00 Encounter Divya ADAMS 350.1.13.10 ity of [place] [id number] [address] 2021-10-11 2021-10-11 Outpatient R [facility] OPH [id number] Univers 06:36:00 08:50:00 DIVYA [facility] 2021-10-11 2021-10-11 Surgery [facility] 1.2.840.114 [id number] Univers 08:00:00 08:34:00 Divya ADAMS 350.1.13.10 i ty of [place] [id number] [facility] 020 Branch 2021-10-09 2021-10-09 [facility] [id number] Univers 11:30:00 11:30:00 DIVYA schmid [facility] 2021-10-08 2021-10-08 Orders Doctor MARTIN 1.2.840.114 [id number] Univers 00:00:00 00:00:00 Only Unassigned, PRASAD 350.1.13.10 ity of [place] [facility] 4.2.7.2.686 Oneal as [id number] [facility] 009 Branch 2021-09-13 2021-09-13 [facility] 1.2.840.114 [id number] Univers 07:19:00 10:06:00 Encounter Divya Adams 350.1.13.10 ity of [place] [id number] [facility] 071 Branch 2021-09-13 2021-09-13 Surgery [facility] 1.2.840.114 [id number] Univers 09:14:00 09:51:00 Divya Adams 350.1.13.10 i ty of [place] [id number] [facility] 020 Branch 2021-09-11 2021-09-11 Outpatient R JORDON, [facility] [id number] Univers 15:00:00 15:00:00 DIVYA schmid [facility] 2021-09-11 2021-09-11 Laboratory Only, Adc Test [facility] 1.2.840. 114 [id number] Univers 13:57:39 14:12:39 Only Divya Ruvalcaba 350.1.1 3.10 [place] of [place] [id number] [facility] 353 Branch 2021-09-10 2021-09-10 Orders Doctor MARTIN 1.2.840.114 [id number] Univers 00:00:00 00:00:00 Only Unassigned, PRASAD 350.1.13.10 ity of [place] [facility] 4.2.7.2.686 Oneal as [id number] [address] 2021-09-04 2021-09-04 Prestidigitator Shayla, Adc Lab Main [facility] 1.2.8 40.114 [id number] Univers 16:12:51 16:27:51 Visit Divya Ruvalcaba 350.1.1 3.10 ity of [place] Profess[place] [phone] [place] [address] 2021-09-04 2021-09-04 Outpatient R JORDON, [facility] [id number] Univers 16:15:00 16:15:00 DIVYA ity of [facility] 2021-08-21 2021-08-21 [facility] [id number] Co mmon 00:00:00 00:00:00 VISIT Spirit ESTAB PT - CHI LEVEL 4 [facility] 2021-07-12 2021-07-12 Kashif [place], [facility] 1.2.840.114 [id number] Univers 00:00:00 00:00:00 Anderson R Y HEALTH 350.1.13.10 it[place] [id number] [address] 2021-07-10 2021-07-10 Office PAYTON [place] 1.2.840.114 [id number] Univers 13:10:23 13:40:23 Visit Anderson R Y HEALTH 350.1.13.10 it[place] [id number] [address] 2021-07-10 2021-07-10 Outpatient Debra WOODS [facility] [id number] Univers 13:00:00 13:00:00 ANDERSON ity of [facility] 2021-06-19 2021-06-19 Office Peggy, [facility] 1.2.840.114 [id number] Univers 11:57:23 13:30:49 Visit Anderson R Y HEALTH 350.1.13.10 it[place] [id number] [address] 2021-06-19 2021-06-19 [facility] [id number] Univers 00:00:00 00:00:00 ANDERSON ity of [facility] 2021-06-13 2021-06-13 Case Peggy, [facility] 1.2.840.114 [id number] Univers 00:00:00 00:00:00 Management Anderson R Y HEALTH 350.1.13.10 it[place] [id number] [address] 2021-06-12 2021-06-12 [facility] [id number] Univers 00:00:00 00:00:00 ANDERSON ity of [facility] 2021-06-05 2021-06-05 Orders Doctor MARTIN 1.2.840.114 [id number] Univers 00:00:00 00:00:00 Only Unassigned, PRASAD 350.1.13.10 ity of [place] [facility] 4.2.7.2.686 [place] [id number] [address] 2021-06-04 2021-06-04 Sulaiman [place], [place] 1.2.840.114 [id number] Univers 00:00:00 00:00:00 Management Anisa Y HEALTH 350.1.13.10 it[place] of [place] [id number] [address] 2021-05-30 2021-05-30 Office Woods, [facility] 1.2.840.114 [id number] Univers 10:39:57 11:52:22 Visit Anderson R Y HEALTH 350.1.13.10 it[place] [id number] [address] 2021-05-30 2021-05-30 [facility] [id number] Univers 11:00:00 11:00:00 ANDERSON ity of [facility] 2021-05-29 2021-05-29 Telephone PAYTON CamIT 1.2.840.114 [id number] Univers 00:00:00 00:00:00 Divya Ike Ryland PAYNE 350.1.13.10 it[place] [id number] [facility] 205 Branch 2021-05-28 2021-05-28 Hospital DorinaHoney 1.2.840.114 [id number] Univers 07:28:00 16:00:00 Encounter Divya Ike Doe 350.1.13.10 ity of Hospital 4.2.7.2.686 [place] [id number] [facility] 104 Branch 2021-05-28 2021-05-28 Surgery CamHoney 1.2.840.114 [id number] Univers 10:27:00 12:52:00 Divya Ike Doe 350.1.13.10 ity of Hospital 4.2.7.2.686 [place] [id number] [facility] 103 Branch 2021-05-28 2021-05-28 Orders Doctor SALAZAR 1.2.840.114 [id number] Univers 00:00:00 00:00:00 Only Unassigned, PRASAD 350.1.13.10 ity of [place] [facility] 4.2.7.2.686 One[place] as [id number] [facility] 009 Branch 2021-05-17 2021-05-17 [facility] 1.2.840.5 [id number] Univers 14:18:00 19:15:00 Encounter Anisa 16924.1.1 i ty of 3.104.2.7 [place] .3.929264 Medica l .8 Branch 2021-05-17 2021-05-17 Anesthesia Patricia Martin 1.2.840. 8 [id number] Univers 18:49:43 18:49:43 Event Yesenia Turner 44739.1.1 ity of 3.104.2.7 [place] .3.771560 Medica l .8 Branch 2021-05-17 2021-05-17 Orders Doctor MARTIN 1.2.840.114 [id number] Univers 00:00:00 00:00:00 Only Unassigned, PRASAD 350.1.13.10 ity of [place] [facility] 4.2.7.2.686 Oneal as [id number] [facility] 009 Mon[place] 2021-05-14 2021-05-14 Travel 1.2.840.1 1.2.825.657 [id number] Univers 00:00:00 00:00:00 26795.1.1 350.1.13.10 ity of 3.104.2.7 [place].3.698 [place] .3.816202 084.8 Medica l .8 [place] 2021-04-26 2021-04-26 [facility] [id number] Common 00:00:00 00:00:00 [facility] 2021-04-24 2021-04-24 Office David Jacob2.840.7 [id number] [facility] 08:26:32 09:33:54 Visit Anisa 18465.1.1 ity of 3.104.2.7 [place] .3.961777 Medica l .8 [place] 2021-04-24 2021-04-24 Outpatient R NIDIA [facility] [id number] Univers 08:30:00 08:30:00 ANISA schmid o f [facility] 2021-04-24 2021-04-24 Travel 1.2.840.1 1.2.961.898 [id number] Univers 00:00:00 00:00:00 00718.1.1 350.1.13.10 ity of 3.104.2.7 4[place].3.698 [place] .3.179846 084.8 Medica l .8 Branch 2021-04-18 2021-04-18 Orders Doctor 1.2.840.6 [id number] Univers 00:00:00 00:00:00 Only Unassigned, 19463.1.1 ity of [place] 3.104.2.7 [place] .3.414621 Medica l .8 Branch 2021-04-09 2021-04-09 Transition Jeyson, 1.2.840.9 [id number] Univers 00:00:00 00:00:00 of Care Matt Cervantes 03073.1.1 it y of 3.104.2.7 [place] .3.549665 Medica l .8 [place] 2021-04-05 2021-04-06 Outpatient X [facility] [id number] Univers 22:55:00 19:15:00 ANISA grullon [facility] 2021-04-05 2021-04-06 Emergency Ernesto Triplettya S 1.2.840.1 [id number] Univers 22:55:00 19:15:00 Anisa Jacob 94072.1.1 ity of 3.104.2.7 [place] .3.570815 Medica l .8 [place] 2021-04-05 2021-04-05 Travel 1.2.840.1 1.2.668.644 [id number] Univers 00:00:00 00:00:00 89001.1.1 350.1.13.10 ity of 3.104.2.7 4[place].3.698 [place] .3.599834 084.8 Medica l .8 [place] 2021-04-03 2021-04-03 [facility] [id number] Univers 10:15:00 10:15:00 ANISA grullon [facility] 2021-03-30 2021-03-30 Office Irma Jacob.2.840.7 [id number] Univers 08:57:04 10:41:55 Visit Anisa 16786.1.1 ity of 3.104.2.7 [place] .3.381307 Medica l .8 [place] 2021-03-30 2021-03-30 [facility] [id number] Univers 09:00:00 09:00:00 ANISA grullon [facility] 2021-03-30 2021-03-30 Orders Doctor 1.2.840.6 [id number] Univers 00:00:00 00:00:00 Only Unassigned, 77295.1.1 ity of [place] 3.104.2.7 [place] .3.860683 Medica l .8 Branch 2021-03-30 2021-03-30 Travel 1.2.840.1 1.2.576.438 [id number] Univers 00:00:00 00:00:00 12729.1.1 350.1.13.10 ity of 3.104.2.7 4[place]7.3.698 [place] .3.027745 084.8 Medica l .8 Branch 2021-03-15 2021-03-15 Orders Doctor MARTIN 1.2.840.114 [id number] 00:00:00 00:00:00 Only Unassigned, PRASAD 350.1.13.10 [place] [facility] 4.2.7.2.686 [id number] 009 2021-03-15 2021-03-15 Orders Doctor 1.2.840.5 [id number] Univers 00:00:00 00:00:00 Only Unassigned, 97959.1.1 ity of [place] 3.104.2.7 [place] .3.744115 Medica l .8 Branch 2021-02-26 2021-02-26 Outpatient STLMLC STLC [id number] Common 00:00:00 00:00:00 [facility] 2021-02-19 2021-02-19 Outpatient STLC STLC [id number] Common 00:00:00 00:00:00 [facility] 2021-02-19 2021-02-19 Orders Doctor MARTIN 1.2.840.114 [id number] Univers 00:00:00 00:00:00 Only Unassigned, PRASAD 350.1.13.10 ity of [place] [facility] 4.2.7.2.686 Oneal as [id number] [facility] 009 Branch 2021-02-16 2021-02-16 Outpatient STLMLC STLMLC [id number] Common 00:00:00 00:00:00 [facility] 2021-02-15 2021-02-15 Outpatient STLMLC STLC [id number] Common 00:00:00 00:00:00 [facility] 2019-01-21 2019-01-21 Outpatient [facility] [id number] Common 10:45:00 10:45:[address] [facility] 2019-01-14 2019-01-14 Outpatient [facility] [id number] Common 13:44:00 13:44:[address] [facility] 2018-08-07 2018-08-07 Outpatient [facility] [id number] Common 11:01:00 11:01:[address] [facility] 2018-08-06 2018-08-06 Outpatient [facility] [id number] Common 15:30:00 15:30:[address] [facility] 2018-07-13 2018-07-13 Outpatient [facility] [id number] Common 23:04:00 23:04:[address] [facility] 2018-07-09 2018-07-09 Outpatient [facility] [id number] Common 10:00:00 10:00:[address] [facility] 2018-04-09 2018-04-09 Outpatient [facility] [id number] Common 21:34:00 21:34:[address] [facility] 2018-04-09 2018-04-09 Outpatient [facility] [id number] Common 13:15:00 13:15:[address] [facility] Results Test Description Test Time Test Comments Results Result Comments Source HEMOGLOBIN A1C 2022-05-15 00:00:00 Test Item Value Reference Range Interpretation Comme nts A1C (test code = 4548-4) 14.0 HEMOGLOBIN [id number] 00:00:00 Test Item Value Reference Range Interpretation Comments A1C (test code = 4548-4) 10.8 HEMOGLOBIN [id number] 00:00:00 Test Item Value Reference Range Interpretation Comments A1C (test code = 4548-4) 8.2% HEMOGLOBIN [id number] 00:00:00 Test Item Value Reference Range Interpretation Comments A1C (test code = 4548-4) 8.6
--- NOTE | 2022-12-07 16:46 | RAD REPORT ---
EXAM DESCRIPTION: RAD - Hand Right 3 View - 12/07/2022 4:38 pm CLINICAL HISTORY: Pain COMPARISON: Head C Spine Mpr Wo Con dated 12/05/2022 FINDINGS/IMPRESSION: No acute fracture. No malalignment. Interphalangeal joint space narrowing. Neeta pheral vascular calcifications.
[2022-12-07 17:09] LABS: Urine Blood Negative (Negative); Urine Glucose 3+ (Negative); Urine Protein 1+ (Negative); Urine Specific Gravity 1.015 (1.005-1.030); Urine pH 5.5 (5.0-7.0)
[2022-12-07 18:33] LABS: Urine Bacteria 20-50 /HPF (<20); Urine Crystals Unidentified Few /HPF (None Seen); Urine Mucus Slight /HPF (None Seen); Urine RBC >50 /HPF (None Seen)
--- NOTE | 2022-12-07 20:24 | RAD REPORT ---
EXAM DESCRIPTION: CTStone Protocol - 12/07/2022 8:05 pm CLINICAL HISTORY: flank pain, hematuria COMPARISON: Abdomen Pelvis W Contrast dated 05/12/2019; Abdomen Pelvis W Contrast dated 6 TECHNIQUE: CT of the abdomen and pelvis was performed. All CT scans are performed using dose optimization technique as appropriate and may include automated exposure control or mA/KV adjustment according to patient size. FINDINGS: Lower chest: Multi-vessel coronary artery disease. Liver: No acute abnormality or suspicious lesions. Biliary: Cholecystectomy Stomach: No significant focal abnormality. Duodenum: No significant focal abnormality. Pancreas: No significant abnormality. Spleen: No significant abnormality. Adrenal: No suspicious lesions. Kidney/ureter: No hydronephrosis. A few punctate left renal calculi are noted. Right-sided hydrourete r but no ureteral calculus. Retroperitoneum: No retroperitoneal adenopathy. Vascular: No aneurysm. Bowel: Diverticulosis without diverticulitis. Normal appendix.. Peritoneum: No ascites or free air. Small fat containing umbilical hernia Bladder: Grossly unremarkable. Reproductive: Hysterectomy Bones: No acute fracture. Disc height loss at L5-S1. Other: n/a IMPRESSION: No acute intra-abdominal or pelvic finding. Punctate left renal calculi. No ureteral sto annelise or hydronephrosis.
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
[2022-12-07 22:05] VITALS: TEMP 97.9
[2022-12-07 22:07] VITALS: BP 197/81; O2SAT 98
== END 2022-12-07 21:16 | disposition home or self-care (01) ==
LOC: ER 15:38
DX: M79.641 Pain in right hand (principal); N39.0 Urinary tract infection, site not specified; I10 Essential (primary) hypertension
CPT/HCPCS: 74176; 76377; 81003; 81015; 99284

== ENCOUNTER → 2024-01-07 | Emergency (ER) | payer OTHER ==
[~2024-01-07] MED LIST: LABETALOL 20 MG/4ML SYRINGE IV ONE
--- OUTSIDE RECORDS SUMMARY | 2024-01-07 14:39 | XMS REPORT | Continuity of Care Document ---
Author Name Unknown Address [address] [facility] [place]. [address] [place] [address] [facility] Address [address] [facility]. 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 Role Phone BETHANY GLORIA ROLDAN Primary Care Physician UnavailGloria Renner Attending Clinician Unavailable DIVYA RUVALCABA Attending Clinician DIVYA Thibodeaux JR Attending Clinician UnavailANISA Whalen Attending Clinician UnavailTJ Byrd Attending Clinician Unavailable ANDERSON WOODS Attending Clinician SIOBHAN Dillard Attending Clinician Unavailable Siobhan Pereira MD Attending Clinician [phone] Anderson Malave Attending Clinician + [phone] oJnnie ARRIAGA Attending Clinician Unavailable Anisa Jacob MD Attending Clinician [phone] Divya Ruvalcaba MD Attending Clinician +- [phone] Doctor Unassigned, [place] Attending Clinician U navailable Only, Adc Test Attending Clinician Unavailable Pob, [facility] Main Attending Clinician Unavailjonathan Cam Jr., MD, Divya Ramires Attending Clinician +- [phone] Veronica DIXON, Patricia Jean Baptiste Attending Clinician [phone] Yue HEWITT, Yesenia Attending Clinician Unavailjonathan Benítez RN, Matt A Attending Clinician Unavail able Triplett PAC, Sun S Attending Clinician [phone] DIVYA RUVALCABA Admitting Clinician Samuel CAM JR, DIVYA Ramires Admitting Clinician UnavailANISA Whalen Admitting Clinician UnavailSIOBHAN Kingston Admitting Clinician Unavailable Jonnie ARRIAGA Admitting Clinician Unavailable Iliana DIXON, Divya Salazar Admitting Clinician +- [phone] Dorina Simental MD, Divya Ramires Admitting Clinician + [phone] Nidia DIXON, Anisa Admitting Clinician [phone] Payers Payer Name Policy Type Policy Number Effective Date Expirati on Date Source [employer] MEDICARE ADVANTAGE [id number] 2021 00:00:00 [facility] AAR MCR Advantage (HMO-POS) 53 [id number] 2020 00:00:00 [facility] MEDICARE NOVITAS [id number] 2020 00:00:00 [facility] MEDICARE NOVITAS [id number] 2020 00:00:00 [facility] COMMUNITY HE[employer] CHOICE [id number] 2017 00:00:00 Problems Condition Name Condition Details Condition Category Status Onset Date Resolution Date Last Treatment Date Treating Clinician Comments Source Peripheral arterial disease Peripheral arterial disease Disease Active 04-24 00:00: 00 Overview: Formattin g of this note might be different from the original. Added automatic ally from request for surgery [id number] [facility] Neuropathy Neuropathy Disease Active 04-24 00:00: 00 Overview: Formattin g of this note might be different from the original. Added automatic ally from request for surgery [id number] [facility] PAD (periphera l artery disease) PAD (periphera l artery disease) Disease Active 04-06 00:00: 00 [facility] Type 2 diabetes mellitus with complicati on, without long-term current use of insulin Type 2 diabetes mellitus with complicati on, without long-term current use of insulin Disease Active 08-18 00:00: 00 [facility] Dyslipidem ia Dyslipidem ia Disease Active 08-18 00:00: 00 [facility] Elevated ALT measuremen t Elevated ALT measuremen t Disease Active 08-18 00:00: 00 [facility] [id number] Current moderate episode of major depressive disorder without prior episode Problem [facility] [id number] Chronic fatigue Problem [facility] [id number] Nausea and vomiting, intractabi lity of vomiting not specified, unspecifie d vomiting type Problem [facility] Foot pain Foot pain Problem [facility] Decreased hearing Decreased hearing Problem [facility] Colon cancer screening Colon cancer screening Problem [facility] [id number] Chronic pain syndrome Problem [facility] [id number] Skin lesion Problem [facility] [id number] Anemia, unspecifie d type Problem [facility] [id number] Nonintract able headache, unspecifie d chronicity pattern, unspecifie d headache type Problem [facility] [id number] Mixed hyperlipid emia Problem [facility] [id number] Uncontroll ed type 2 diabetes mellitus without complicati on, without long-term current use of insulin Problem [facility] [id number] 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 intermitte nt claudicati on Problem [facility] [id number] Polyarthra lgia Problem [facility] [id number] Abnormal liver function Problem [facility] [id number] Vitamin D deficiency Problem [facility] [id number] Essential hypertensi on Problem [facility] [id number] Gastroesop hageal reflux disease, esophagiti s presence not specified Problem [facility] Allergies, Adverse Reactions, Alerts Allergy Name Allergy Type Status Severity Reaction(s) Onset Date Inactive Date Treating Clinician Comments Source NO KNOWN ALLERGIE S Drug Class Active [facility] Social History Social Habit Start Date Stop Date Quantity Comments Source History of Tobacco Use [facility] Sex Assigned At [facility] Exposure to SARS-CoV-2 (event) 2022-06-19 00:00:00 2022-06-29 20:04:00 Not sure [facility] Tobacco use and exposure 2021-04-06 00:00:00 2021-04-06 00:00:00 Smokeless tobacco non-user [facility] Smoking Status Start Date Stop Date Source Never Smoker [facility] Medications Ordered Medication Name Filled Medication Name Start Date Stop Date Current Medication? Ordering Clinician Indication Dosage Frequency Signature (SIG) Comments Components Source Pregabalin 75 MG Pregabalin 75 MG 2022-12 2-18 00:00: 00 No 1{capsu le} BID Pregabalin 75 MG Pregabalin 75 MG Pregabalin 75 MG 2022-12 2-18 00:00: 00 No 1{capsu le} BID Pregabalin 75 MG Pregabalin 75 MG Pregabalin 75 MG 2022-12 2-18 00:00: 00 No 1{capsu le} BID Pregabalin 75 MG Pregabalin 75 MG Pregabalin 75 MG 2022-12 2-18 00:00: 00 No 1{capsu le} BID Pregabalin 75 MG Pregabalin 75 MG Pregabalin 75 MG 2022-12 2-18 00:00: 00 No 1{capsu le} BID Pregabalin 75 MG Pregabalin 75 MG Pregabalin 75 MG 2022-12 2-18 00:00: 00 No 1{capsu le} BID Pregabalin 75 MG Pregabalin 75 MG Pregabalin 75 MG 2022-12 2-18 00:00: 00 No 1{capsu le} BID Pregabalin 75 MG Pregabalin 75 MG Pregabalin 75 MG 2022-12 2-18 00:00: 00 No 1{capsu le} BID Pregabalin 75 MG Pregabalin 75 MG Pregabalin 75 MG 2022-12 2-18 00:00: 00 No 1{capsu le} BID Pregabalin 75 MG Pregabalin 75 MG Pregabalin 75 MG 2022-12 2-18 00:00: 00 No 1{capsu le} BID Pregabalin 75 MG Pregabalin 75 MG Pregabalin 75 MG 2022-12 2-18 00:00: 00 No 1{capsu le} BID Pregabalin 75 MG Alendronate Sodium 70 MG Alendronate Sodium 70 MG 2022-12 2- 00:00: 00 No Alendronat e Sodium 70 MG Alendronate Sodium 70 MG Alendronate Sodium 70 MG 2022-12 2- 00:00: 00 No Alendronat e Sodium 70 MG Alendronate Sodium 70 MG Alendronate Sodium 70 MG 2022-12 2- 00:00: 00 No Alendronat e Sodium 70 MG Alendronate Sodium 70 MG Alendronate Sodium 70 MG 2022-12 2- 00:00: 00 No Alendronat e Sodium 70 MG Alendronate Sodium 70 MG Alendronate Sodium 70 MG 2022-12 2 00:00: 00 No Alendronat e Sodium 70 MG Alendronate Sodium 70 MG Alendronate Sodium 70 MG 2022-12 2- 00:00: 00 No Alendronat e Sodium 70 MG Alendronate Sodium 70 MG Alendronate Sodium 70 MG 2022-12 2- 00:00: 00 No Alendronat e Sodium 70 MG Alendronate Sodium 70 MG Alendronate Sodium 70 MG 2022-12 2- 00:00: 00 No Alendronat e Sodium 70 MG Alendronate Sodium 70 MG Alendronate Sodium 70 MG 2022-12 2- 00:00: 00 No Alendronat e Sodium 70 MG Alendronate Sodium 70 MG Alendronate Sodium 70 MG 2022-12 2- 00:00: 00 No Alendronat e Sodium 70 MG Alendronate Sodium 70 MG Alendronate Sodium 70 MG 2022-12 2- 00:00: 00 No Alendronat e Sodium 70 MG Cyanocobala min Cyanocobala min 2-0 9-14 00:00: 00 No 1000ug [facility] Cyanocobala min Cyanocobala min 2021-0 9-14 00:00: 00 No 1000ug [facility] Cyanocobala min Cyanocobala min 2021-0 9-14 00:00: 00 No 1000ug [facility] Cyanocobala min Cyanocobala min 2021-0 9-14 00:00: 00 No 1000ug [facility] Cyanocobala min Cyanocobala min 2021-0 9-14 00:00: 00 No 1000ug [facility] Cyanocobala min Cyanocobala min 2021-0 9-14 00:00: 00 No 1000ug [facility] Cyanocobala min Cyanocobala min 2021-0 9-14 00:00: 00 No 1000ug [facility] Cyanocobala min Cyanocobala min 2021-0 9-14 00:00: 00 No 1000ug [facility] Cyanocobala min Cyanocobala min 2021-0 9-14 00:00: 00 No 1000ug [facility] Cyanocobala min Cyanocobala min 2021-0 9-14 00:00: 00 No 1000ug [facility] Cyanocobala min Cyanocobala min 2021-0 9-14 00:00: 00 No 1000[facility] Cyanocobala min Cyanocobala min 2021-0 9-14 00:00: 00 No 1000ug [facility] Cyanocobala min Cyanocobala min 2021-0 9-14 00:00: 00 No 1000ug [facility] Vitamin B12 (Cyanocobal riggs) Vitamin B12 (Cyanocobal riggs) 2-0 8-16 00:00: 00 No 1000ug [facility] Cyanocobala min Cyanocobala min 2021-0 8-16 00:00: 00 No 1000ug [facility] Cyanocobala min Cyanocobala min 2021-0 8-16 00:00: 00 No 1000ug [facility] Cyanocobala min Cyanocobala min 2021-0 8-16 00:00: 00 No 1000ug [facility] Cyanocobala min Cyanocobala min 2021-0 8-16 00:00: 00 No 1000ug [facility] Cyanocobala min Cyanocobala min 2021-0 8-16 00:00: 00 No 1000ug [facility] Cyanocobala min Cyanocobala min 2021-0 8-16 00:00: 00 No 1000ug [facility] Cyanocobala min Cyanocobala min 2021-0 8-16 00:00: 00 No 1000ug [facility] Cyanocobala min Cyanocobala min 2021-0 8-16 00:00: 00 No 1000ug [facility] Cyanocobala min Cyanocobala min 2021-0 8-16 00:00: 00 No 1000ug [facility] Cyanocobala min Cyanocobala min 2021-0 8-16 00:00: 00 No 1000ug [facility] Cyanocobala min Cyanocobala min 2021-0 8-16 00:00: 00 No 1000ug [facility] Cyanocobala min Cyanocobala min 2021-0 8-16 00:00: 00 No 1000ug [facility] Cyanocobala min Cyanocobala min 2021-0 8-16 00:00: 00 No 1000ug [facility] NaCl 0.9% (NS) bolus infusion 500 mL 06-30 01:30: 00 06-30 04:00 :00 No 500mL at 999 mL/hr, 500 mL, IV Infusion, ONCE, 1 dose, On 06/29/22 at 2030, STAT [facility] diphenhydrA MINE (BENADRYL) injection 25 mg 06-30 01:30: 00 06-30 01:48 :00 No 25mg 25 mg, Slow IV Push, ONCE, 1 dose, On 06/29/22 at 2030, STAT [facility] metoclopram ana HCl (REGLAN) injection 10 mg 06-30 01:30: 00 06-30 01:48 :00 No 10mg 10 mg, Slow IV Push, ONCE, 1 dose, On 06/29/22 at 2030, ZARI [facility] ondansetron (ZOFRAN) 4 mg tablet 06-29 00:00: 00 Yes [id number] 4mg Take 1 tablet by mouth every 8 (eight) hours as needed for Nausea and Vomiting (N/V). [facility] traMADoL (ULTRAM) 50 mg tablet 06-29 00:00: 00 Yes [id number] 50mg Take 1 tablet by mouth every 6 (six) hours as needed for Pain (scale 7-10). Indication s: acute pain [facility] butalbital- acetaminoph en-caff 50-325-40 mg tablet 06-29 00:00: 00 Yes [id number] 1{tbl} Take 1 tablet by mouth every 6 (six) hours as needed (Headache) . [facility] butalbital- acetaminoph en-caff 50-325-40 mg tablet 06-29 00:00: 00 06-29 00:00 :00 No [id number] 1{tbl} Take 1 tablet by mouth every 6 (six) hours as needed (Headache) . [facility] Sertraline HCl 25 MG Sertraline HCl 25 MG 06-13 00:00: 00 No 1{table t} QD Sertraline HCl 25 MG Sertraline HCl 25 MG Sertraline HCl 25 MG 06-13 00:00: 00 No 1{table t} QD Sertraline HCl 25 MG Sertraline HCl 25 MG Sertraline HCl 25 MG 06-13 00:00: 00 No 1{table t} QD Sertraline HCl 25 MG Sertraline HCl 25 MG Sertraline HCl 25 MG 2021- 7-14 00:00: 00 No 1{table t} QD Sertraline HCl 25 MG empaglifloz in (JARDIANCE) 10 mg 2021-30 14:30: 22 Yes 10mg Take 10 mg by mouth daily. [facility] DULoxetine 30 mg CDRS 05-30 14:30: 22 Yes 1{capsu le} Take 1 capsule by mouth 2 (two) times daily. [facility] empaglifloz in (JARDIANCE) 10 mg 05-30 14:30: 22 Yes 10mg Take 10 mg by mouth daily. [facility] DULoxetine 30 mg CDRS 05-30 14:30: 22 Yes 1{capsu le} Take 1 capsule by mouth 2 (two) times daily. [facility] Jardiance 10 MG Jardiance 10 MG 05-15 00:00: 00 06-14 00:00 :00 No 1{table t} QD Jardiance 10 MG pioglitazon e 15 mg tablet 05-09 16:17: 08 Yes 15mg Take 15 mg by mouth daily. [facility] gabapentin 100 mg capsule 05-09 16:17: 08 Yes 100mg Take 100 mg by mouth 3 (three) times daily. [facility] lisinopriL 10 mg tablet 05-09 16:17: 08 Yes 10mg Take 10 mg by mouth daily. [facility] rosuvastati n 20 mg tablet 05-09 16:17: 08 Yes 20mg Take 20 mg by mouth at bedtime. [facility] pioglitazon e 15 mg tablet 05-09 16:17: 08 Yes 15mg Take 15 mg by mouth daily. [facility] gabapentin 100 mg capsule 05-09 16:17: 08 Yes 100mg Take 100 mg by mouth 3 (three) times daily. [facility] lisinopriL 10 mg tablet 05-09 16:17: 08 Yes 10mg Take 10 mg by mouth daily. [facility] rosuvastati n 20 mg tablet 05-09 16:17: 08 Yes 20mg Take 20 mg by mouth at bedtime. [facility] glimepiride 4 mg tablet 05-09 16:14: 17 Yes 4mg Take 4 mg by mouth daily with breakfast. [facility] Insulin Glargine (LANTUS SOLOSTAR U-100 INSULIN) 100 unit/mL (3 mL) injection 05-09 16:14: 17 Yes inject under the skin. [facility] metFORMIN 1,000 mg tablet 05-09 16:14: 17 Yes 1000mg Take 1,000 mg by mouth 2 (two) times daily with meals. [facility] glimepiride 4 mg tablet 05-09 16:14: 17 Yes 4mg Take 4 mg by mouth daily with breakfast. [facility] Insulin Glargine (LANTUS SOLOSTAR U-100 INSULIN) 100 unit/mL (3 mL) injection 05-09 16:14: 17 Yes inject under the skin. [facility] metFORMIN 1,000 mg tablet 05-09 16:14: 17 Yes 1000mg Take 1,000 mg by mouth 2 (two) times daily with meals. [facility] diazePAM 5 MG diazePAM 5 MG 01-25 00:00: 00 No 1{table t_as_ne eded} QD diazePAM 5 MG diazePAM 5 MG diazePAM 5 MG 2021-0 25 00:00: 00 No 1{table t_as_ne eded} QD diazePAM 5 MG diazePAM 5 MG diazePAM 5 MG 2021-0 225 00:00: 00 No 1{table t_as_ne eded} QD diazePAM 5 MG diazePAM 5 MG diazePAM 5 MG 2021-0 2-25 00:00: 00 No 1{table t_as_ne eded} QD diazePAM 5 MG diazePAM 5 MG diazePAM 5 MG 2021-0 2-25 00:00: 00 No 1{table t_as_ne eded} QD diazePAM 5 MG diazePAM 5 MG diazePAM 5 MG 2021-0 2-25 00:00: 00 No 1{table t_as_ne eded} QD diazePAM 5 MG diazePAM 5 MG diazePAM 5 MG 2021-0 2-25 00:00: 00 No 1{table t_as_ne eded} QD diazePAM 5 MG DULoxetine HCl 20 MG DULoxetine HCl 20 MG 2021-0 2- 00:00: 00 No 1{capsu le} QD DULoxetine HCl 20 MG DULoxetine HCl 20 MG DULoxetine HCl 20 MG 2021-0 2- 00:00: 00 No 1{capsu le} QD DULoxetine HCl 20 MG DULoxetine HCl 20 MG DULoxetine HCl 20 MG 2021-0 2- 00:00: 00 No 1{capsu le} QD DULoxetine HCl 20 MG dicyclomine HCl (DICYCLOMIN E ORAL) 2020-12 08:53: 10 Yes 200mg Take 200 mg by mouth. [facility] ergocalcife rol, vitamin d2, (VITAMIN D2) 50,000 unit capsule 2020-12 08:53: 10 Yes [id number] Take 50,000 Units by mouth weekly. [facility] metFORMIN 500 mg tablet 2020-12 08:53: 10 Yes 500mg Take 500 mg by mouth 2 (two) times daily with meals. [facility] meloxicam 7.5 mg tablet 2020-12 08:53: 10 Yes 7.5mg Take 7.5 mg by mouth daily. [facility] pioglitazon e 30 mg tablet 2020-12 08:53: 10 Yes 30mg Take 30 mg by mouth daily. [facility] dicyclomine HCl (DICYCLOMIN E ORAL) 2020-12 08:53: 10 Yes 200mg Take 200 mg by mouth. [facility] ergocalcife rol, vitamin d2, (VITAMIN D2) 50,000 unit capsule 2020-12 08:53: 10 Yes [id number] Take 50,000 Units by mouth weekly. [facility] metFORMIN 500 mg tablet 2020-12 08:53: 10 Yes 500mg Take 500 mg by mouth 2 (two) times daily with meals. [facility] meloxicam 7.5 mg tablet 2020-12 08:53: 10 Yes 7.5mg Take 7.5 mg by mouth daily. [facility] pioglitazon e 30 mg tablet 2020-12 08:53: 10 Yes 30mg Take 30 mg by mouth daily. [facility] Rollator walker n/s Rollator walker n/s 08-28 00:00: 00 No Rollator walker n/s Pioglitazon e HCl 30 MG Pioglitazon e HCl 30 MG 08-21 00:00: 00 No 1{table t} QD Pioglitazo ne HCl 30 MG Pioglitazon e HCl 30 MG Pioglitazon e HCl 30 MG 08-21 00:00: 00 No 1{table t} QD Pioglitazo ne HCl 30 MG MINOCYCLINE 100 mg capsule 07-24 00:00: 00 Yes [id number] TAKE 1 CAPSULE BY MOUTH EVERY 12 HOURS FOR 7 DAYS [facility] MINOCYCLINE 100 mg capsule 07-24 00:00: 00 Yes [id number] TAKE 1 CAPSULE BY MOUTH EVERY 12 HOURS FOR 7 DAYS [facility] Contour Next Test - Contour Next Test - 0 06-26 00:00: 00 No Contour Next Test - Contour Next Test - Contour Next Test - 0 06-26 00:00: 00 No Contour Next Test - Contour Next Test - Contour Next Test - 0 06-26 00:00: 00 No Contour Next Test - Contour Next Test - Contour Next Test - 2020-0 06-26 00:00: 00 No Contour Next Test - Contour Next Test - Contour Next Test - 0 06-26 00:00: 00 No Contour Next Test - Contour Next Test - Contour Next Test - 2020-0 06-26 00:00: 00 No Contour Next Test - Contour Next Test - Contour Next Test - 0 06-26 00:00: 00 No Contour Next Test - Contour Next Test - Contour Next Test - 2020-0 06-26 00:00: 00 No Contour Next Test - Contour Next Test - Contour Next Test - 06-26 00:00: 00 No Contour Next Test - Contour Next Test - Contour Next Test - 0 06-26 00:00: 00 No Contour Next Test - traMADoL 50 mg tablet 06-04 00:00: 00 Yes [id number] 50mg Take 1 tablet by mouth every 6 (six) hours as needed for Pain (scale 7-10). Indication s: acute pain [facility] traMADoL 50 mg tablet 06-04 00:00: 00 Yes [id number] 50mg Take 1 tablet by mouth every 6 (six) hours as needed for Pain (scale 7-10). Indication s: [facility] 300-30 mg tablet 05-30 00:00: 00 Yes [id number] 1{tbl} Take 1 tablet by mouth every 6 (six) hours as needed for Pain (scale 7-10) for up to 18 doses. Indication s: [facility] acetaminoph [facility]-codeine 300-30 mg tablet 05-30 00:00: 00 Yes [id number] 1{tbl} Take 1 tablet by mouth every 6 (six) hours as needed for Pain (scale 7-10) for up to 18 doses. Indication s: acute pain [facility] [place] 5/16" 31G X 8 MM [place] 5/16" 31G X 8 MM 2020-0 04-26 00:00: 00 No QD [place] 5/16" 31G X 8 MM Lisinopril 10 MG Lisinopril 10 MG 2020-04-26 00:00: 00 No 1{table t} QD Lisinopril 10 MG [place] 5/16" 31G X 8 MM [place] 5/16" 31G X 8 MM 2020-0 04-26 00:00: 00 No QD [place] 5/16" 31G X 8 MM Lisinopril 10 MG Lisinopril 10 MG 2020-0 04-26 00:00: 00 No 1{table t} QD Lisinopril 10 MG [place] 5/16" 31G X 8 MM [place] 5/16" 31G X 8 MM 2020-0 04-26 00:00: 00 No QD [place] 5/16" 31G X 8 MM Lisinopril 10 MG Lisinopril 10 MG 1-0 04-26 00:00: 00 No 1{table t} QD Lisinopril 10 MG Lisinopril 10 MG Lisinopril 10 MG 2021-0 04-26 00:00: 00 No 1{table t} QD Lisinopril 10 MG [place] 5/16" 31G X 8 MM [place] 5/16" 31G X 8 MM 2021-0 04-26 00:00: 00 No QD [place] 5/16" 31G X 8 MM [place] 5/16" 31G X 8 MM [place] 5/16" 31G X 8 MM 2021-0 04-26 00:00: 00 No QD [place] 5/16" 31G X 8 MM Lisinopril 10 MG Lisinopril 10 MG 1-0 04-26 00:00: 00 No 1{table t} QD Lisinopril 10 MG [place] 5/16" 31G X 8 MM [place] 5/16" 31G X 8 MM 2021-0 04-26 00:00: 00 No QD [place] 5/16" 31G X 8 MM Lisinopril 10 MG Lisinopril 10 MG 1-0 04-26 00:00: 00 No 1{table t} QD Lisinopril 10 MG Lisinopril 10 MG Lisinopril 10 MG 1-0 04-26 00:00: 00 No 1{table t} QD Lisinopril 10 MG [place] 5/16" 31G X 8 MM [place] 5/16" 31G X 8 MM 2021-0 04-26 00:00: 00 No QD [place] 5/16" 31G X 8 MM Lisinopril 10 MG Lisinopril 10 MG 1-0 04-26 00:00: 00 No 1{table t} QD Lisinopril 10 MG [place] 5/16" 31G X 8 MM [place] 5/16" 31G X 8 MM 2021-0 04-26 00:00: 00 No QD [place] 5/16" 31G X 8 MM [place] 5/16" 31G X 8 MM [place] 5/16" 31G X 8 MM 2021-0 04-26 00:00: 00 No QD [place] 5/16" 31G X 8 MM Lisinopril 10 MG Lisinopril 10 MG 04-26 00:00: 00 No 1{table t} QD Lisinopril 10 MG [place] 5/16" 31G X 8 MM [place] 5/16" 31G X 8 MM 04-26 00:00: 00 No QD [place] 5/16" 31G X 8 MM Lisinopril 10 MG Lisinopril 10 MG 04-26 00:00: 00 No 1{table t} QD Lisinopril 10 MG aspirin 81 mg chewable tablet 04-07 00:00: 00 Yes [id number] 81mg Take 1 tablet by mouth daily. [facility] aspirin 81 mg chewable tablet 04-07 00:00: 00 Yes [id number] 81mg Take 1 tablet by mouth daily. [facility] atorvastati n (LIPITOR) 20 mg tablet 08-24 00:00: 00 Yes 20mg Take 1 tablet by mouth at bedtime. [facility] atorvastati n (LIPITOR) 20 mg tablet 08-24 00:00: 00 Yes 20mg Take 1 tablet by mouth at bedtime. [facility] Pioglitazon e HCl Pioglitazon e HCl 08-07 00:00: 00 Yes Kamala Millwai 1 tablet [facility] Angie Adams 08-06 00:00: 00 Yes Kamala Millwai 1 tablet [facility] Ondansetron HCl Ondansetron HCl 08-06 00:00: 00 Yes Kamala Millender 1 tablet as needed for nausea/vom iting [facility] Lancets Lancets 04-09 00:00: 00 Yes Kamala Garcia as directed; dispense lancets formulary to [facility] BL Blood Glucose Monitor Kit BL Blood Glucose Monitor Kit 04-09 00:00: 00 Yes Kamala Garcia As directed; DISPENSE BG MONITOR FORMULARY TO [facility] blood glucose test strip blood glucose test strip 0 04-09 00:00: 00 07-03 00:00 :00 No Kamala Arcosender as directed; DISPENSE TESTING STRIPS FORMULARY TO INSURANCE [facility] Glimepiride Glimepiride Yes Kamala Millender 1 tablet [facility] Gabapentin Gabapentin Yes Kamala Millender 1 capsule [facility] Cyclobenzap rine HCl Cyclobenzap rine HCl Yes Kamala Millender 1 tablet as needed [facility] Mobic Mobic Yes Kamala Millender 1 tablet [facility] Metformin HCl Metformin HCl Yes Kamala Millender 1 tablet with a meal [facility] Aspirin 81 81 MG Aspirin 81 81 MG No 1{table t} QD Aspirin 81 81 MG metFORMIN HCl 1000 MG metFORMIN HCl 1000 MG No 1{table t_with_ a_meal} metFORMIN HCl 1000 MG Rosuvastati n Calcium 20 MG Rosuvastati n Calcium 20 MG No 1{table t} QD Rosuvastat in Calcium 20 MG Glimepiride 4 MG Glimepiride 4 MG No 1{table t} BID Glimepirid e 4 MG Rollator walker n/s Rollator walker n/s No Rollator walker n/s Gabapentin 100 MG Gabapentin 100 MG No 2{capsu les} TID Gabapentin 100 MG metFORMIN HCl 1000 MG metFORMIN HCl 1000 MG No 1{table t_with_ a_meal} metFORMIN HCl 1000 MG Gabapentin 100 MG Gabapentin 100 MG No 2{capsu les} TID Gabapentin 100 MG Glimepiride 4 MG Glimepiride 4 MG No 1{table t} BID Glimepirid e 4 MG Rosuvastati n Calcium 20 MG Rosuvastati n Calcium 20 MG No 1{table t} QD Rosuvastat in Calcium 20 MG Rollator walker n/s Rollator walker n/s No Rollator walker n/s Aspirin 81 81 MG Aspirin 81 81 MG No 1{table t} QD Aspirin 81 81 MG Glimepiride 4 MG Glimepiride 4 MG No 1{table t} BID Glimepirid e 4 MG Gabapentin 100 MG Gabapentin 100 MG No 2{capsu les} TID Gabapentin 100 MG Rosuvastati n Calcium 20 MG Rosuvastati n Calcium 20 MG No 1{table t} QD Rosuvastat in Calcium 20 MG Aspirin 81 81 MG Aspirin 81 81 MG No 1{table t} QD Aspirin 81 81 MG metFORMIN HCl 1000 MG metFORMIN HCl 1000 MG No 1{table t_with_ a_meal} metFORMIN HCl 1000 MG Rollator walker n/s Rollator walker n/s No Rollator walker n/s Glimepiride 4 MG Glimepiride 4 MG No 1{table t} BID Glimepirid e 4 MG Rosuvastati n Calcium 20 MG Rosuvastati n Calcium 20 MG No 1{table t} QD Rosuvastat in Calcium 20 MG Gabapentin 100 MG Gabapentin 100 MG No 2{capsu les} TID Gabapentin 100 MG metFORMIN HCl 1000 MG metFORMIN HCl 1000 MG No 1{table t_with_ a_meal} metFORMIN HCl 1000 MG Aspirin 81 81 MG Aspirin 81 81 MG No 1{table t} QD Aspirin 81 81 MG Rollator walker n/s Rollator walker n/s No Rollator walker n/s DULoxetine HCl 30 MG DULoxetine HCl 30 MG No 1{capsu le} BID DULoxetine HCl 30 MG Rollator walker n/s Rollator walker n/s No Rollator walker n/s Aspirin 81 81 MG Aspirin 81 81 MG No 1{table t} QD Aspirin 81 81 MG Gabapentin 100 MG Gabapentin 100 MG No 2{capsu les} TID Gabapentin 100 MG DULoxetine HCl 30 MG DULoxetine HCl 30 MG No 1{capsu le} BID DULoxetine HCl 30 MG Glimepiride 4 MG Glimepiride 4 MG No 1{table t} BID Glimepirid e 4 MG metFORMIN HCl 1000 MG metFORMIN HCl 1000 MG No 1{table t_with_ a_meal} metFORMIN HCl 1000 MG Rosuvastati n Calcium 20 MG Rosuvastati n Calcium 20 MG No 1{table t} QD Rosuvastat in Calcium 20 MG DULoxetine HCl 30 MG DULoxetine HCl 30 MG No 1{capsu le} BID DULoxetine HCl 30 MG Aspirin 81 81 MG Aspirin 81 81 MG No 1{table t} QD Aspirin 81 81 MG Rollator walker n/s Rollator walker n/s No Rollator walker n/s Gabapentin 100 MG Gabapentin 100 MG No 2{capsu les} TID Gabapentin 100 MG Rosuvastati n Calcium 20 MG Rosuvastati n Calcium 20 MG No 1{table t} QD Rosuvastat in Calcium 20 MG metFORMIN HCl 1000 MG metFORMIN HCl 1000 MG No 1{table t_with_ a_meal} metFORMIN HCl 1000 MG Glimepiride 4 MG Glimepiride 4 MG No 1{table t} BID Glimepirid e 4 MG Glimepiride 4 MG Glimepiride 4 MG No 1{table t} BID Glimepirid e 4 MG DULoxetine HCl 30 MG DULoxetine HCl 30 MG No 1{capsu le} BID DULoxetine HCl 30 MG metFORMIN HCl 1000 MG metFORMIN HCl 1000 MG No 1{table t_with_ a_meal} metFORMIN HCl 1000 MG Rosuvastati n Calcium 20 MG Rosuvastati n Calcium 20 MG No 1{table t} QD Rosuvastat in Calcium 20 MG Jardiance 25 MG Jardiance 25 MG No 1{table t} QD Jardiance 25 MG Rollator walker n/s Rollator walker n/s No Rollator walker n/s Aspirin 81 81 MG Aspirin 81 81 MG No 1{table t} QD Aspirin 81 81 MG Gabapentin 100 MG Gabapentin 100 MG No 2{capsu les} TID Gabapentin 100 MG Glimepiride 4 MG Glimepiride 4 MG No 1{table t} BID Glimepirid e 4 MG DULoxetine HCl 30 MG DULoxetine HCl 30 MG No 1{capsu le} BID DULoxetine HCl 30 MG metFORMIN HCl 1000 MG metFORMIN HCl 1000 MG No 1{table t_with_ a_meal} metFORMIN HCl 1000 MG Rosuvastati n Calcium 20 MG Rosuvastati n Calcium 20 MG No 1{table t} QD Rosuvastat in Calcium 20 MG Jardiance 25 MG Jardiance 25 MG No 1{table t} QD Jardiance 25 MG Rollator walker n/s Rollator walker n/s No Rollator walker n/s Aspirin 81 81 MG Aspirin 81 81 MG No 1{table t} QD Aspirin 81 81 MG Gabapentin 100 MG Gabapentin 100 MG No 2{capsu les} TID Gabapentin 100 MG Jardiance 25 MG Jardiance 25 MG No 1{table t} QD Jardiance 25 MG Glimepiride 4 MG Glimepiride 4 MG No 1{table t} BID Glimepirid e 4 MG Rosuvastati n Calcium 20 MG Rosuvastati n Calcium 20 MG No 1{table t} QD Rosuvastat in Calcium 20 MG DULoxetine HCl 30 MG DULoxetine HCl 30 MG No 1{capsu le} BID DULoxetine HCl 30 MG Lisinopril 10 MG Lisinopril 10 MG No 1{table t} QD Lisinopril 10 MG Jardiance 25 MG Jardiance 25 MG No 1{table t} QD Jardiance 25 MG Glimepiride 4 MG Glimepiride 4 MG No 1{table t} BID Glimepirid e 4 MG Rosuvastati n Calcium 20 MG Rosuvastati n Calcium 20 MG No 1{table t} QD Rosuvastat in Calcium 20 MG DULoxetine HCl 30 MG DULoxetine HCl 30 MG No 1{capsu le} BID DULoxetine HCl 30 MG Lisinopril 10 MG Lisinopril 10 MG No 1{table t} QD Lisinopril 10 MG Jardiance 25 MG Jardiance 25 MG No 1{table t} QD Jardiance 25 MG Glimepiride 4 MG Glimepiride 4 MG No 1{table t} BID Glimepirid e 4 MG Rosuvastati n Calcium 20 MG Rosuvastati n Calcium 20 MG No 1{table t} QD Rosuvastat in Calcium 20 MG DULoxetine HCl 30 MG DULoxetine HCl 30 MG No 1{capsu le} BID DULoxetine HCl 30 MG Lisinopril 10 MG Lisinopril 10 MG No 1{table t} QD Lisinopril 10 MG Jardiance 25 MG Jardiance 25 MG No 1{table t} QD Jardiance 25 MG Glimepiride 4 MG Glimepiride 4 MG No 1{table t} BID Glimepirid e 4 MG Rosuvastati n Calcium 20 MG Rosuvastati n Calcium 20 MG No 1{table t} QD Rosuvastat in Calcium 20 MG DULoxetine HCl 30 MG DULoxetine HCl 30 MG No 1{capsu le} BID DULoxetine HCl 30 MG Lisinopril 10 MG Lisinopril 10 MG No 1{table t} QD Lisinopril 10 MG Jardiance 25 MG Jardiance 25 MG No 1{table t} QD Jardiance 25 MG Glimepiride 4 MG Glimepiride 4 MG No 1{table t} BID Glimepirid e 4 MG Rosuvastati n Calcium 20 MG Rosuvastati n Calcium 20 MG No 1{table t} QD Rosuvastat in Calcium 20 MG DULoxetine HCl 30 MG DULoxetine HCl 30 MG No 1{capsu le} BID DULoxetine HCl 30 MG Lisinopril 10 MG Lisinopril 10 MG No 1{table t} QD Lisinopril 10 MG Jardiance 25 MG Jardiance 25 MG No 1{table t} QD Jardiance 25 MG Glimepiride 4 MG Glimepiride 4 MG No 1{table t} BID Glimepirid e 4 MG Rosuvastati n Calcium 20 MG Rosuvastati n Calcium 20 MG No 1{table t} QD Rosuvastat in Calcium 20 MG DULoxetine HCl 30 MG DULoxetine HCl 30 MG No 1{capsu le} BID DULoxetine HCl 30 MG Lisinopril 10 MG Lisinopril 10 MG No 1{table t} QD Lisinopril 10 MG Jardiance 25 MG Jardiance 25 MG No 1{table t} QD Jardiance 25 MG Glimepiride 4 MG Glimepiride 4 MG No 1{table t} BID Glimepirid e 4 MG Rosuvastati n Calcium 20 MG Rosuvastati n Calcium 20 MG No 1{table t} QD Rosuvastat in Calcium 20 MG DULoxetine HCl 30 MG DULoxetine HCl 30 MG No 1{capsu le} BID DULoxetine HCl 30 MG Lisinopril 10 MG Lisinopril 10 MG No 1{table t} QD Lisinopril 10 MG Jardiance 25 MG Jardiance 25 MG No 1{table t} QD Jardiance 25 MG Glimepiride 4 MG Glimepiride 4 MG No 1{table t} BID Glimepirid e 4 MG Rosuvastati n Calcium 20 MG Rosuvastati n Calcium 20 MG No 1{table t} QD Rosuvastat in Calcium 20 MG DULoxetine HCl 30 MG DULoxetine HCl 30 MG No 1{capsu le} BID DULoxetine HCl 30 MG Lisinopril 10 MG Lisinopril 10 MG No 1{table t} QD Lisinopril 10 MG Jardiance 25 MG Jardiance 25 MG No 1{table t} QD Jardiance 25 MG Glimepiride 4 MG Glimepiride 4 MG No 1{table t} BID Glimepirid e 4 MG Rosuvastati n Calcium 20 MG Rosuvastati n Calcium 20 MG No 1{table t} QD Rosuvastat in Calcium 20 MG DULoxetine HCl 30 MG DULoxetine HCl 30 MG No 1{capsu le} BID DULoxetine HCl 30 MG Lisinopril 10 MG Lisinopril 10 MG No 1{table t} QD Lisinopril 10 MG Jardiance 25 MG Jardiance 25 MG No 1{table t} QD Jardiance 25 MG Glimepiride 4 MG Glimepiride 4 MG No 1{table t} BID Glimepirid e 4 MG Rosuvastati n Calcium 20 MG Rosuvastati n Calcium 20 MG No 1{table t} QD Rosuvastat in Calcium 20 MG DULoxetine HCl 30 MG DULoxetine HCl 30 MG No 1{capsu le} BID DULoxetine HCl 30 MG Lisinopril 10 MG Lisinopril 10 MG No 1{table t} QD Lisinopril 10 MG Jardiance 25 MG Jardiance 25 MG No 1{table t} QD Jardiance 25 MG Glimepiride 4 MG Glimepiride 4 MG No 1{table t} BID Glimepirid e 4 MG Rosuvastati n Calcium 20 MG Rosuvastati n Calcium 20 MG No 1{table t} QD Rosuvastat in Calcium 20 MG DULoxetine HCl 30 MG DULoxetine HCl 30 MG No 1{capsu le} BID DULoxetine HCl 30 MG Lisinopril 10 MG Lisinopril 10 MG No 1{table t} QD Lisinopril 10 MG metFORMIN HCl 1000 MG metFORMIN HCl 1000 MG No 1{table t_with_ a_meal} metFORMIN HCl 1000 MG Glimepiride 4 MG Glimepiride 4 MG No 1{table t} BID Glimepirid e 4 MG Rosuvastati n Calcium 20 MG Rosuvastati n Calcium 20 MG No 1{table t} QD Rosuvastat in Calcium 20 MG Aspirin 81 81 MG Aspirin 81 81 MG No 1{table t} QD Aspirin 81 81 MG Gabapentin 100 MG Gabapentin 100 MG No 2{capsu les} TID Gabapentin 100 MG metFORMIN HCl 1000 MG metFORMIN HCl 1000 MG No 1{table t_with_ a_meal} metFORMIN HCl 1000 MG Rollator walker n/s Rollator walker n/s No Rollator walker n/s Glimepiride 4 MG Glimepiride 4 MG No 1{table t} BID Glimepirid e 4 MG Rosuvastati n Calcium 20 MG Rosuvastati n Calcium 20 MG No 1{table t} QD Rosuvastat in Calcium 20 MG Aspirin 81 81 MG Aspirin 81 81 MG No 1{table t} QD Aspirin 81 81 MG Gabapentin 100 MG Gabapentin 100 MG No 2{capsu les} TID Gabapentin 100 MG Jardiance 25 MG Jardiance 25 MG 11-13 00:00 :00 No 1{table t} QD Jardiance 25 MG Jardiance 10 MG Jardiance 10 MG 10-11 00:00 :00 No 1{table t} QD Jardiance 10 MG Immunizations Ordered Immunization Name Filled Immunization Name Date Status Comments Source FLUZONE HIGH DOSE OVER 65 FLUZONE HIGH DOSE OVER 65 2021-10-16 14:11:00 Completed [facility] FLUZONE HIGH DOSE OVER 65 FLUZONE HIGH DOSE OVER 65 2021-10-16 14:11:00 Completed [facility] FLUZONE HIGH DOSE OVER 65 FLUZONE HIGH DOSE OVER 65 2021-10-16 14:11:00 Completed [facility] FLUZONE HIGH DOSE OVER 65 FLUZONE HIGH DOSE OVER 65 2021-10-16 14:11:00 Completed [facility] FLUZONE HIGH DOSE OVER 65 FLUZONE HIGH DOSE OVER 65 2021-10-16 14:11:00 Completed [facility] FLUZONE HIGH DOSE OVER 65 FLUZONE HIGH DOSE OVER 65 2021-10-16 14:11:00 Completed [facility] FLUZONE HIGH DOSE OVER 65 FLUZONE HIGH DOSE OVER 65 2021-10-16 14:11:00 Completed [facility] FLUZONE HIGH DOSE OVER 65 FLUZONE HIGH DOSE OVER 65 2021-10-16 14:11:00 Completed [facility] FLUZONE HIGH DOSE OVER 65 FLUZONE HIGH DOSE OVER 65 2021-10-16 14:11:00 Completed [facility] COVID-19 Vaccine (Brett) COVID-19 Vaccine (Brett) 2021-02-19 14:31:00 Completed [facility] COVID-19 Vaccine (Brett) COVID-19 Vaccine (Brett) 2021-02-19 14:31:00 Completed [facility] COVID-19 Vaccine (Brett) COVID-19 Vaccine (Brett) 2021-02-19 14:31:00 Completed [facility] COVID-19 Vaccine (Brett) COVID-19 Vaccine (Brett) 2021-02-19 14:31:00 Completed [facility] COVID-19 Vaccine (Brett) COVID-19 Vaccine (Brett) 2021-02-19 14:31:00 Completed [facility] COVID-19 Vaccine (Brett) COVID-19 Vaccine (Brett) 2021-02-19 14:31:00 Completed [facility] COVID-19 Vaccine (Brett) COVID-19 Vaccine (Brett) 2021-02-19 14:31:00 Completed [facility] COVID-19 Vaccine (Brett) COVID-19 Vaccine (Brett) 2021-02-19 14:31:00 Completed [facility] COVID-19 Vaccine (Brett) COVID-19 Vaccine (Brett) 2021-02-19 14:31:00 Completed [facility] COVID-19 Vaccine (Brett) COVID-19 Vaccine (Brett) 2021-02-19 14:31:00 Completed [facility] SARS-COV-2 COVID-19 BRETT/J&J VACCINE 2021-02-19 00:00:00 Completed [facility] SARS-COV-2 COVID-19 BRETT/J&J VACCINE 2021-02-19 00:00:00 Completed [facility] Prevnar 20 (PCV20) Prevnar 20 (PCV20) Unknown Completed [facility] Fluad (aIIV4) - SDS - 0.5mL Fluad (aIIV4) - SDS - 0.5mL Unknown Completed [facility] COVID-19 Vaccine (Brett) COVID-19 Vaccine (Brett) Unknown Completed [facility] FLUZONE HIGH DOSE OVER 65 FLUZONE HIGH DOSE OVER 65 Unknown Completed [facility] Prevnar 20 (PCV20) Prevnar 20 (PCV20) Unknown Completed [facility] Fluad (aIIV4) - SDS - 0.5mL Fluad (aIIV4) - SDS - 0.5mL Unknown Completed [facility] COVID-19 Vaccine (Brett) COVID-19 Vaccine (Brett) Unknown Completed [facility] FLUZONE HIGH DOSE OVER 65 FLUZONE HIGH DOSE OVER 65 Unknown Completed [facility] Prevnar 20 (PCV20) Prevnar 20 (PCV20) Unknown Completed [facility] Fluad (aIIV4) - SDS - 0.5mL Fluad (aIIV4) - SDS - 0.5mL Unknown Completed [facility] COVID-19 Vaccine (Brett) COVID-19 Vaccine (Brett) Unknown Completed [facility] FLUZONE HIGH DOSE OVER 65 FLUZONE HIGH DOSE OVER 65 Unknown Completed [facility] Prevnar 20 (PCV20) Prevnar 20 (PCV20) Unknown Completed [facility] Fluad (aIIV4) - SDS - 0.5mL Fluad (aIIV4) - SDS - 0.5mL Unknown Completed [facility] COVID-19 Vaccine (Brett) COVID-19 Vaccine (Brett) Unknown Completed [facility] FLUZONE HIGH DOSE OVER 65 FLUZONE HIGH DOSE OVER 65 Unknown Completed [facility] Prevnar 20 (PCV20) Prevnar 20 (PCV20) Unknown Completed [facility] Fluad (aIIV4) - SDS - 0.5mL Fluad (aIIV4) - SDS - 0.5mL Unknown Completed [facility] COVID-19 Vaccine (Brett) COVID-19 Vaccine (Brett) Unknown Completed [facility] FLUZONE HIGH DOSE OVER 65 FLUZONE HIGH DOSE OVER 65 Unknown Completed [facility] Prevnar 20 (PCV20) Prevnar 20 (PCV20) Unknown Completed [facility] Fluad (aIIV4) - SDS - 0.5mL Fluad (aIIV4) - SDS - 0.5mL Unknown Completed [facility] COVID-19 Vaccine (Brett) COVID-19 Vaccine (Brett) Unknown Completed [facility] FLUZONE HIGH DOSE OVER 65 FLUZONE HIGH DOSE OVER 65 Unknown Completed [facility] Prevnar 20 (PCV20) Prevnar 20 (PCV20) Unknown Completed [facility] Fluad (aIIV4) - SDS - 0.5mL Fluad (aIIV4) - SDS - 0.5mL Unknown Completed [facility] COVID-19 Vaccine (Brett) COVID-19 Vaccine (Brett) Unknown Completed [facility] FLUZONE HIGH DOSE OVER 65 FLUZONE HIGH DOSE OVER 65 Unknown Completed [facility] Prevnar 20 (PCV20) Prevnar 20 (PCV20) Unknown Completed [facility] Fluad (aIIV4) - SDS - 0.5mL Fluad (aIIV4) - SDS - 0.5mL Unknown Completed [facility] COVID-19 Vaccine (Brett) COVID-19 Vaccine (Brett) Unknown Completed [facility] FLUZONE HIGH DOSE OVER 65 FLUZONE HIGH DOSE OVER 65 Unknown Completed [facility] Prevnar 20 (PCV20) Prevnar 20 (PCV20) Unknown Completed [facility] Fluad (aIIV4) - SDS - 0.5mL Fluad (aIIV4) - SDS - 0.5mL Unknown Completed [facility] COVID-19 Vaccine (Brett) COVID-19 Vaccine (Brett) Unknown Completed [facility] FLUZONE HIGH DOSE OVER 65 FLUZONE HIGH DOSE OVER 65 Unknown Completed [facility] Prevnar 20 (PCV20) Prevnar 20 (PCV20) Unknown Completed [facility] Fluad (aIIV4) - SDS - 0.5mL Fluad (aIIV4) - SDS - 0.5mL Unknown Completed [facility] COVID-19 Vaccine (Brett) COVID-19 Vaccine (Brett) Unknown Completed [facility] FLUZONE HIGH DOSE OVER 65 FLUZONE HIGH DOSE OVER 65 Unknown Completed [facility] Prevnar 20 (PCV20) Prevnar 20 (PCV20) Unknown Completed [facility] Fluad (aIIV4) - SDS - 0.5mL Fluad (aIIV4) - SDS - 0.5mL Unknown Completed [facility] COVID-19 Vaccine (Brett) COVID-19 Vaccine (Brett) Unknown Completed [facility] FLUZONE HIGH DOSE OVER 65 FLUZONE HIGH DOSE OVER 65 Unknown Completed [facility] Vital Signs Vital Name Observation Time Observation Value Comments S ource height 2023-11-17 08:40:00 56 [in_i] Commo n [facility] weight 2023-11-17 08:40:00 105.4 [lb_av] Co mmon [facility] temperature 2023-11-17 08:40:00 98.0 [degF] Com mon [facility] bmi 2023-11-17 08:40:00 23.63 kg/m2 Comm on [facility] oximetry 2023-11-17 08:40:00 100 % Commo n [facility] respiratory rate 2023-11-17 08:40:00 16 /min [facility] blood pressure systolic 2023-11-17 08:40:00 148 mm[Hg] Common [facility] blood pressure diastolic 2023-11-17 08:40:00 72 mm[Hg] [facility] height 2023-08-25 10:00:00 56 [in_i] Commo n [facility] weight 2023-08-25 10:00:00 100.8 [lb_av] Co mmon [facility] temperature 2023-08-25 10:00:00 97.9 [degF] Com mon [facility] bmi 2023-08-25 10:00:00 22.6 kg/m2 Commo n [facility] oximetry 2023-08-25 10:00:00 98 % Commo n [facility] respiratory rate 2023-08-25 10:00:00 16 /min Common [facility] blood pressure systolic 2023-08-25 10:00:00 139 mm[Hg] [facility] blood pressure diastolic 2023-08-25 10:00:00 71 mm[Hg] Common [facility] height 2023-08-25 10:20:00 56 [in_i] Commo n [facility] weight 2023-08-25 10:20:00 100.8 [lb_av] Co [facility] temperature 2023-08-25 10:20:00 97.9 [degF] Com [facility] bmi 2023-08-25 10:20:00 22.6 kg/m2 Commo n [facility] oximetry 2023-08-25 10:20:00 98 % Commo n [facility] respiratory rate 2023-08-25 10:20:00 16 /min Common [facility] blood pressure systolic 2023-08-25 10:20:00 139 mm[Hg] Common [facility] blood pressure diastolic 2023-08-25 10:20:00 71 mm[Hg] [facility] height 2023-07-31 13:20:00 56 [in_i] Commo n [facility] weight 2023-07-31 13:20:00 101.2 [facility] 13:20:00 98.2 [degF] Com [facility] bmi 2023-07-31 13:20:00 22.69 kg/m2 Comm on [facility] oximetry 2023-07-31 13:20:00 96 % Commo n [facility] respiratory rate 2023-07-31 13:20:00 18 /min [facility] blood pressure systolic 2023-07-31 13:20:00 134 mm[Hg] [facility] blood pressure diastolic 2023-07-31 13:20:00 84 mm[Hg] [facility] height 2022-07-16 13:00:00 56 [in_i] Commo n [facility] weight 2022-07-16 13:00:00 97.8 [lb_av] Com [facility] temperature 2022-07-16 13:00:00 98.2 [degF] Com [facility] bmi 2022-07-16 13:00:00 21.92 kg/m2 Comm on [facility] oximetry 2022-07-16 13:00:00 100 % Commo n [facility] respiratory rate 2022-07-16 13:00:00 16 /min [facility] blood pressure systolic 2022-07-16 13:00:00 138 mm[Hg] [facility] blood pressure diastolic 2022-07-16 13:00:00 88 mm[Hg] [facility] Systolic blood pressure 2022-06-30 04:00:00 149 mm[Hg] [facility] Diastolic blood pressure 2022-06-30 04:00:00 61 mm[Hg] [facility] Heart rate 2022-06-30 04:00:00 92 /min [facility] Respiratory rate 2022-06-30 04:00:00 18 /min [facility] Oxygen saturation in Arterial blood by Pulse oximetry 2022-06-30 04:00:00 98 /min [facility] Body temperature 2022-06-30 01:07:00 38.22 Sravanthi [facility] Body height 2022-06-30 01:07:00 144.8 cm [facility] 2022-[facility]-30 01:07:00 47.174 kg [facility] BMI 2022-06-30 01:07:00 22.51 kg/m2 [facility] height 2022-06-13 [facility] 13:00:00 98.6 [lb_av] Com [facility] temperature 2022-06-13 13:00:00 97.2 [degF] Com [facility] bmi 2022-06-13 13:00:00 22.1 kg/m2 [facility] oximetry 2022-06-13 13:00:00 97 % [facility] respiratory rate 2022-06-13 13:00:00 16 /min [facility] blood pressure systolic 2022-06-13 13:00:00 136 mm[Hg] [facility] blood pressure diastolic 2022-06-13 13:00:00 69 mm[Hg] [facility] Systolic blood pressure 2022-05-30 19:32:00 140 mm[Hg] [facility] Diastolic blood pressure 2022-05-30 19:32:00 75 mm[Hg] [facility] Heart rate 2022-05-30 19:30:00 71 /[facility] 2022-05-30 19:30:00 37.06 Sravanthi [facility] Body height 2022-05-30 19:30:00 147.3 cm [facility] Body weight 2022-05-30 19:30:00 43.999 kg [facility] BMI 2022-05-30 19:30:00 20.27 kg/m2 [facility] Oxygen saturation in Arterial blood by Pulse oximetry 2022-05-30 19:30:00 100 /min [facility] height 2022-05-15 13:00:00 57 [in_i] Commo n [facility] weight 2022-05-15 13:00:00 99.8 [lb_av] Com [facility] temperature 2022-05-15 13:00:00 98.4 [degF] Com [facility] bmi 2022-05-15 13:00:00 21.59 kg/m2 Comm on [facility] oximetry 2022-05-15 13:00:00 96 % Commo n [facility] respiratory rate 2022-05-15 13:00:00 16 /min Common [facility] blood pressure systolic 2022-05-15 13:00:00 164 mm[Hg] Common [facility] blood pressure diastolic 2022-05-15 13:00:00 76 mm[Hg] Common [facility] height 2022-01-22 15:40:00 57 [in_i] Commo n [facility] weight 2022-01-22 15:40:00 110 [lb_av] Comm on [facility] temperature 2022-01-22 15:40:00 97.2 [degF] Com [facility] bmi 2022-01-22 15:40:00 23.80 kg/m2 Comm on [facility] oximetry 2022-01-22 15:40:00 98 % Commo n [facility] blood pressure systolic 2022-01-22 15:40:00 138 mm[Hg] [facility] blood pressure diastolic 2022-01-22 15:40:00 74 mm[Hg] Common [facility] height 2022-01-22 16:00:00 57 [in_i] Commo n [facility] weight 2022-01-22 16:00:00 110 [lb_av] Comm on [facility] temperature 2022-01-22 16:00:00 97.2 [degF] Com [facility] bmi 2022-01-22 16:00:00 23.80 kg/m2 Comm on [facility] oximetry 2022-01-22 16:00:00 98 % Commo n [facility] blood pressure systolic 2022-01-22 16:00:00 138 mm[Hg] [facility] blood pressure diastolic 2022-01-22 16:00:00 74 mm[Hg] Common [facility] height 2021-10-16 13:40:00 57 [in_i] Commo n [facility] weight 2021-10-16 13:40:00 109.4 [lb_av] Co [facility] temperature 2021-10-16 13:40:00 98.2 [degF] Com [facility] bmi 2021-10-16 13:40:00 23.67 kg/m2 Comm on [facility] oximetry 2021-10-16 13:40:00 99 % Commo n [facility] respiratory rate 2021-10-16 13:40:00 16 /min [facility] blood pressure systolic 2021-10-16 13:40:00 140 mm[Hg] [facility] blood pressure diastolic 2021-10-16 13:40:00 76 mm[Hg] [facility] [place] [facility] height 2021-08-21 14:40:00 57 [in_i] Commo n [facility] weight 2021-08-21 14:40:00 112.4 [lb_av] Co [facility] temperature 2021-08-21 14:40:00 97.0 [degF] Com [facility] bmi 2021-08-21 14:40:00 24.32 kg/m2 Comm on [facility] oximetry 2021-08-21 14:40:00 98 % Commo n [facility] respiratory rate 2021-08-21 14:40:00 16 /min Common [facility] height 2021-05-24 11:40:00 57 [in_i] Commo n [facility] weight 2021-05-24 11:40:00 106 [lb_av] Comm on [facility] temperature 2021-05-24 11:40:00 98.2 [degF] Com mon [facility] bmi 2021-05-24 11:40:00 22.94 kg/m2 Comm on [facility] oximetry 2021-05-24 11:40:00 97 % Commo n [facility] respiratory rate 2021-05-24 11:40:00 20 /min [facility] blood pressure systolic 2021-05-24 11:40:00 138 mm[Hg] [facility] blood pressure diastolic 2021-05-24 11:40:00 74 mm[Hg] [facility] Procedures Procedure Date / Time Performed Performing Clinician Source URINALYSIS 2022-06-30 03:06:00 Siobhan Pereira [facility] CT HEAD WO CONTRAST 2022-06-30 01:47:00 Siobhan Pereira [facility] LIPASE 2022-06-30 01:32:00 Siobhan Pereira [facility] TROPONIN I 2022-06-30 01:32:00 Siobhan Pereira [facility] COMP. METABOLIC PANEL (15755) 2022-06-30 01:32:00 Siobhan Pereira [facility] CBC WITH DIFF 2022-06-30 01:32:[address] [facility] PROTHROMBIN TIME / INR 2022-06-30 01:32:00 Stanley Pereira [facility] COVID-19 (ID NOW RAPID TESTING) 2022-06-30 01:32:00 Siobhan Pereira [facility] CONSENT/REFUSAL FOR DIAGNOSIS AND TREATMENT 2022-06-30 00:48:26 Doctor Unassigned, [place] [facility] Encounters Start Date/Time End Date/Time Encounter Type Admission Type Attending [facility] Care Facility Care Department Encounter ID Source 2023-08-28 09:25:00 Outpatient Gloria Goncalves STLMLC [id number] [facility] 2023-07-31 13:22:00 Outpatient Gloria Goncalves STKRISTINALC STLMLC [id number] [facility] 2022-08-12 13:25:00 Outpatient Gloria Goncalves STKRISTINALC STLMLC [id number] [facility] 2022-07-12 09:03:00 Outpatient Gloria Goncalves STLMLC STLMLC [id number] [facility] 2021-12-26 14:35:38 Outpatient Gloria Goncalves STLMLC STLMLC [id number] [facility] 2021-12-26 14:07:57 Outpatient Gloria Goncalves STLMLC STLMLC [id number] [facility] 2021-12-26 13:58:41 Outpatient Gloria Goncalves STLMLC STLMLC [id number] [facility] 2021-12-26 13:26:23 Outpatient Gloria Goncalves STLMLC STLMLC [id number] [facility] 2021-12-26 13:07:52 Outpatient Gloria Goncalves STLMLC STLMLC [id number] [facility] 2021-12-26 12:46:22 Outpatient Gloria Goncalves STLMLC STLMLC [id number] [facility] 2021-12-26 12:45:46 Outpatient Gloria Goncalves STLMLC STLMLC [id number] [facility] 2021-12-26 12:43:16 Outpatient BaxterGloria marcano STLMLC STLMLC [id number] [facility] 2021-12-26 12:42:46 Outpatient Gloria Goncalves STLMLC STLMLC [id number] [facility] 2021-12-26 12:41:53 Outpatient Gloria Goncalves STLMLC STLMLC [id number] [facility] 2021-12-26 12:41:21 Outpatient Gloria Goncalves STLMLC STLMLC [id number] [facility] 2021-12-26 12:25:33 Outpatient STLMLC STLMLC [id number] [facility] 2021-10-02 03:38:45 Outpatient DIVYA PIERSON [facility] [id number] [facility] 2021-10-01 02:10:08 Outpatient DIVYA CAM JR [facility] [id number] [facility] 2021-09-30 21:11:03 Outpatient NIDIA ANISA [facility] [id number] [facility] 2021-09-30 17:40:10 Emergency [facility] [id number] [facility] 2023-12-02 00:00:00 2023-12-02 00:00:00 (TEL) STLMLC STLMLC [id number] [facility] 2023-11-17 00:00:00 2023-11-17 00:00:00 OFFICE VISIT ESTAB PT LEVEL 3 STLMLC STLMLC [id number] [facility] 2023-10-30 00:00:00 2023-10-30 00:00:00 (TEL) STLMLC STLMLC [id number] [facility] 2023-08-27 00:00:00 2023-08-27 00:00:00 (TEL) STLMLC STLMLC [id number] [facility] 2023-08-26 00:00:00 2023-08-26 00:00:00 (TEL) STLMLC STLMLC [id number] [facility] 2023-08-25 00:00:00 2023-08-25 00:00:00 OFFICE VISIT ESTAB PT LEVEL 3 STLMLC STLMLC [id number] [facility] 2023-08-25 00:00:00 2023-08-25 00:00:00 (TEL) STLMLC STLMLC [id number] [facility] 2023-08-25 00:00:00 2023-08-25 00:00:00 SUB [facility]LLNESS VISIT STLMLC STLMLC [id number] [facility] 2023-08-07 00:00:00 2023-08-07 00:00:00 (TEL) STLMLC STLMLC [id number] [facility] 2023-07-31 00:00:00 2023-07-31 00:00:00 OFFICE VISIT ESTAB PT LEVEL 4 STLMLC STLMLC [id number] [facility] 2023-07-29 00:00:00 2023-07-29 00:00:00 (TEL) STLMLC STLMLC [id number] [facility] 2023-01-02 13:15:00 2023-01-02 13:15:00 Outpatient TJ FRANK [facility] [id number] [facility] 2022-12-24 09:00:00 2022-12-24 09:00:00 Outpatient ANISA DAO [facility] [id number] [facility] 2022-07-16 00:00:00 2022-07-16 00:00:00 OFFICE VISIT ESTAB PT LEVEL 4 STLMLC STLMLC [id number] [facility] 2022-07-04 00:00:00 2022-07-04 00:00:00 (TEL) STLMLC STLMLC [id number] [facility] 2022-06-29 19:58:00 2022-06-29 23:22:00 Emergency X SIOBHAN PEREIRA [facility] [id number] [facility] 2022-06-29 19:58:00 2022-06-29 23:22:00 Emergency Siobhan Pereira S [facility] 1..840.114 350.1.13.10 4.2.7.2.686 [id number] [facility] 2022-06-13 00:00:00 2022-06-13 00:00:00 OFFICE VISIT ESTAB PT LEVEL 4 [facility] [id number] [facility] 2022-05-30 15:00:00 2022-05-30 15:30:00 Office Visit Ishmael Woodsrique [facility] 1..840.114 350.1.13.10 4.2.7.2.686 [id number] [facility] 2022-05-30 15:00:00 2022-05-30 15:00:00 Outpatient R ANDERSON WOODS [facility] [id number] [facility] 2022-05-30 13:01:05 2022-05-30 13:00:00 Outpatient R ISHMAEL WOODSRIQUE [facility] [id number] [facility] 2022-05-15 00:00:00 2022-05-15 00:00:00 OFFICE VISIT ESTAB PT LEVEL 4 [facility] ST[facility] [id number] [facility] 2022-05-09 16:00:00 2022-05-09 16:47:57 Outpatient R ISHMAEL WOODSRIQUE [facility] [id number] [facility] 2022-05-09 16:00:00 2022-05-09 16:47:57 Office Visit Ishmael Woodsrique [facility] 1..840.114 350.1.13.10 4.2.7.2.686 [id number] [facility] 2022-04-28 23:27:00 2022-04-29 03:35:00 Emergency X BART, K [facility] E[facility] [id number] [facility] 2022-02-05 14:00:00 2022-02-05 14:00:00 Outpatient ISHMAEL IRELANDRIQUE [facility] [id number] [facility] 2022-01-25 00:00:00 2022-01-25 00:00:00 (TEL) STLMLC STLC [id number] [facility] 2022-01-22 00:00:00 2022-01-22 00:00:00 OFFICE VISIT ESTAB PT LEVEL 4 STLMLC STLC [id number] [facility] 2022-01-22 00:00:00 2022-01-22 00:00:00 SUB ANNUAL [facility] WELLNESS VISIT STLMLC STLC [id number] [facility] 2022-01-10 00:00:00 2022-01-10 00:00:00 Outpatient ISHMAEL IRELANDRIQUE [facility] [id number] [facility] 2021-12-08 00:00:00 2021-12-08 00:00:00 Anisa Contreras [facility] 1.2.840.114 350.1.13.10 4.2.7.2.686 [id number] [facility] 2021-10-16 00:00:00 2021-10-16 00:00:00 OFFICE VISIT ESTAB PT LEVEL 4 [facility] [id number] [facility] 2021-10-11 06:36:00 2021-10-11 08:50:00 Hospital Encounter Divya Ruvalcaba [facility] 1.2.840.114 350.1.13.10 4.2.7.2.686 [id number] [facility] 2021-10-11 06:36:00 2021-10-11 08:50:00 Outpatient DIVYA PIERSON [facility] [id number] [facility] 2021-10-11 08:00:00 2021-10-11 08:34:00 Surgery Divya Ruvalcaba [facility] 1.2.840.114 350.1.13.10 4.2.7.2.686 [id number] [facility] 2021-10-09 11:30:00 2021-10-09 11:30:00 Outpatient R DIVYA RUVALCABA [facility] [id number] [facility] 2021-10-08 00:00:00 2021-10-08 00:00:00 Orders Only Doctor Unassigned, [place] [facility] 1.2.840.114 350.1.13.10 4.2.7.2.686 [id number] [facility] 2021-09-13 07:19:00 2021-09-13 10:06:00 Hospital Encounter Divya Ruvalcaba [facility] 1.2.840.114 350.1.13.10 4.2.7.2.686 [id number] [facility] 2021-09-13 09:14:00 2021-09-13 09:51:00 Surgery Divya Ruvalcaba [facility] 1.2.840.114 350.1.13.10 4.2.7.2.686 [id number] [facility] 2021-09-11 15:00:00 2021-09-11 15:00:00 Outpatient R DIVYA RUVALCABA [facility] [id number] [facility] 2021-09-11 13:57:39 2021-09-11 14:12:39 Laboratory Only Only, Adc Test Divya Ruvalcaba [facility] 1.2.840.114 350.1.13.10 4.2.7.2.686 [id number] [facility] 2021-09-10 00:00:00 2021-09-10 00:00:00 Orders Only Doctor Unassigned, [place] [facility] 1.114 350.1.13.10 4.2.7.2.686 [id number] [facility] 2021-09-04 16:12:51 2021-09-04 16:27:51 Health Unit Clerk Visit Pob, Adc Lab Divya Buckner [facility] 1.114 350.1.13.10 4.2.7.2.686 [id number] [facility] 2021-09-04 16:15:00 2021-09-04 16:15:00 Outpatient R DIVYA RUVALCABA [facility] [id number] [facility] 2021-08-21 00:00:00 2021-08-21 00:00:00 OFFICE VISIT ESTAB PT LEVEL 4 STLMLC STLMLC [id number] [facility] 2021-07-12 00:00:00 2021-07-12 00:00:00 Refill Ishmael Woodsrique R [facility] 1.114 350.1.13.10 4.2.7.2.686 [id number] [facility] 2021-07-10 13:10:23 2021-07-10 13:40:23 Office Visit Anderson Woods R [facility] 1.114 350.1.13.10 4.2.7.2.686 [id number] [facility] 2021-07-10 13:00:00 2021-07-10 13:00:00 Outpatient R ANDERSON WOODS [facility] [id number] [facility] 2021-06-19 11:57:23 2021-06-19 13:30:49 Office Visit Ishmael Woodsrique [facility] 1.114 350.1.13.10 4.2.7.2.686 [id number] [facility] 2021-06-19 00:00:00 2021-06-19 00:00:00 Outpatient R PEGGY ANDERSON [facility] [id number] [facility] 2021-06-13 00:00:00 2021-06-13 00:00:00 Case Management Peggy Anderson [facility] 1.840.114 350.1.13.10 4.2.7.2.686 [id number] [facility] 2021-06-12 00:00:00 2021-06-12 00:00:00 Outpatient R PEGGY ANDERSON [facility] [id number] [facility] 2021-06-05 00:00:00 2021-06-05 00:00:00 Orders Only Doctor Unassigned, [place] [facility] 1.840.114 350.1.13.10 4.2.7.2.686 [id number] [facility] 2021-06-04 00:00:00 2021-06-04 00:00:00 Case Management Anisa Jacob [facility] 1.840.114 350.1.13.10 4.2.7.2.686 [id number] [facility] 2021-05-30 10:39:57 2021-05-30 11:52:22 Office Visit Peggy Anderson [facility] 1..114 350.1.13.10 4.2.7.2.686 [id number] [facility] 2021-05-30 11:00:00 2021-05-30 11:00:00 Outpatient R WOODS, ANDERSON [facility] [id number] [facility] 2021-05-29 00:00:00 2021-05-29 00:00:00 Telephone Divya [facility] 1.2.840.114 350.1.13.10 4.2.7.2.686 [id number] [facility] 2021-05-28 07:28:00 2021-05-28 16:00:00 Hospital Encounter MediaDivya [facility] 1.2.840.114 350.1.13.10 4.2.7.2.686 [id number] [facility] 2021-05-28 10:27:00 2021-05-28 12:52:00 Surgery [facility] 1.2.840.114 350.1.13.10 4.2.7.2.686 [id number] [facility] 2021-05-28 00:00:00 2021-05-28 00:00:00 Orders Only Doctor Unassigned, [place] [facility] 1.2.840.114 350.1.13.10 4.2.7.2.686 [id number] [facility] 2021-05-24 00:00:00 2021-05-24 00:00:00 OFFICE VISIT ESTAB PT LEVEL 4 STLMLC STLMLC [id number] [facility] 2021-05-17 14:18:00 2021-05-17 19:15:00 Hospital Encounter Anisa Jacob 1.2.840.1 53088.1.1 3.104.2.7 .3.705184 .[id number] [facility] 2021-05-17 18:49:43 2021-05-17 18:49:43 Anesthesia Event Patricia Martin Corina 1.2.840.1 27435.1.1 3.104.2.7 .3.688245 .8 [id number] [facility] 2021-05-17 00:00:00 2021-05-17 00:00:00 Orders Only Doctor Unassigned, [place] [facility] 1.2.840.114 350.1.13.10 4.2.7.2.686 [id number] [facility] 2021-05-14 00:00:00 2021-05-14 00:00:00 Travel 1.2.840.1 [id number] 3.104.2.7 .3.014642 .8 1.2.840.114 350.1.13.10 4.2.7.3.698 [id number] [facility] 2021-04-26 00:00:00 2021-04-26 00:00:00 Outpatient STLMLC STLMLC [id number] [facility] 2021-04-24 08:26:32 2021-04-24 09:33:54 Office Visit Anisa Jacob 1.2.840.1 84350.1.1 3.104.2.7 .3.342674 .8 [id number] [facility] 2021-04-24 08:30:00 2021-04-24 08:30:00 Outpatient R ANISA JACOB [facility] [id number] [facility] 2021-04-24 00:00:00 2021-04-24 00:00:00 Travel 1.2.840.1 26033.1.1 3.104.2.7 .3.807793 .8 1.2.840.114 350.1.13.10 4.2.7.3.698 [id number] [facility] 2021-04-18 00:00:00 2021-04-18 00:00:00 Orders Only Doctor Unassigned, [place] 1.2.840.1 88158.1.1 3.104.2.7 .3.683720 .8 [id number] [facility] 2021-04-09 00:00:00 2021-04-09 00:00:00 Transition of Care Jeyson, Matt A 1.2.840.1 63933.1.1 3.104.2.7 .3.821242 .8 [id number] [facility] 2021-04-05 22:55:00 2021-04-06 19:15:00 Outpatient X ANISA JACOB [facility] [id number] [facility] 2021-04-05 22:55:00 2021-04-06 19:15:00 Emergency Sun Triplett S Anisa Jacob 1.2.840.1 55169.1.1 3.104.2.7 .3.873672 .8 [id number] [facility] 2021-04-05 00:00:00 2021-04-05 00:00:00 Travel 1.2.840.1 49792.1.1 3.104.2.7 .3.191786 .8 1.2.840.114 350.1.13.10 4.2.7.3.698 [id number] [facility] 2021-04-03 10:15:00 2021-04-03 10:15:00 Outpatient R ANISA JACOB [facility] [id number] [facility] 2021-03-30 08:57:04 2021-03-30 10:41:55 Office Visit Anisa Jacob 1.2.840.1 01914.1.1 3.104.2.7 .3.804943 .8 [id number] [facility] 2021-03-30 09:00:00 2021-03-30 09:00:00 Outpatient R ANISA JACOB [facility] [id number] [facility] 2021-03-30 00:00:00 2021-03-30 00:00:00 Orders Only Doctor Unassigned, [place] 1.2.840.1 68179.1.1 3.104.2.7 .3.618063 .8 [id number] [facility] 2021-03-30 00:00:00 2021-03-30 00:00:00 Travel 1.2.840.1 34383.1.1 3.104.2.7 .3.399103 .8 1.2.840.114 350.1.13.10 4.2.7.3.698 [id number] [facility] 2021-03-15 00:00:00 2021-03-15 00:00:00 Orders Only Doctor Unassigned, [place] [facility] 1.2.840.114 350.1.13.10 4.2.7.2.686 [id number] 2021-03-15 00:00:00 2021-03-15 00:00:00 Orders Only Doctor Unassigned, [place] 1.2.840.1 92386.1.1 3.104.2.7 .3.818650 .8 [id number] [facility] 2021-02-26 00:00:00 2021-02-26 00:00:00 Outpatient STLMLC STLMLC [id number] [facility] 2021-02-19 00:00:00 2021-02-19 00:00:00 Outpatient STLMLC STLMLC [id number] [facility] 2021-02-19 00:00:00 2021-02-19 00:00:00 Orders Only Doctor Unassigned, [place] [facility] 1.2.840.114 350.1.13.10 4.2.7.2.686 [id number] [facility] 2021-02-16 00:00:00 2021-02-16 00:00:00 Outpatient STLMLC STLMLC [id number] [facility] 2021-02-15 00:00:00 2021-02-15 00:00:00 Outpatient STLMLC STLMLC [id number] [facility] 2019-01-21 10:45:00 2019-01-21 10:45:00 [facility] [id number] [facility] 2019-01-14 13:44:00 2019-01-14 13:44:[address] [facility] [facility] [id number] [facility] 2018-08-07 11:01:00 2018-08-07 11:01:[address] [facility] [facility] [id number] [facility] 2018-08-06 15:30:00 2018-08-06 15:30:00 Out[facility] [id number] [facility] 2018-07-13 23:04:00 2018-07-13 23:04:00 Out[facility] [id number] [facility] 2018-07-09 10:00:00 2018-07-09 10:00:00 Out[facility] [id number] [facility] 2018-04-09 21:34:00 2018-04-09 21:34:00 Out[facility] [id number] [facility] 2018-04-09 13:15:00 2018-04-09 13:15:00 Out[facility] [id number] [facility] Results Test Description Test Time Test Comments Results Result Co mments Source CBC W/AUTO [id number] 00:00:00* Test Item Value Reference Range Interpretation Comme nts NUCLEATED RBCS (test code = 01662-6) 0.0 /100 WBC'S See_Comment [Automated [employer]] The system which generated this result transmitted reference range: 0.0 /100 WBC'S. The reference range was not used to interpret this result as normal/abnormal. ABSOLUTE EOSINOPHILS (test code = 50684-7) 0.12 K/UL See_Comment [Automated [employer]] The system which generated this result transmitted reference range: 0.00-0.50 K/UL. The reference range was not used to interpret this result as normal/abnormal. ABSOLUTE LYMPHOCYTES (test code = 02705-3) 2.17 K/UL See_Comment [Automated messa ge] The system which generated this result transmitted reference range: 1.00-4.00 K/UL. The reference range was not used to interpret this result as normal/abnormal. ABSOLUTE MONOCYTES (test code = 15374-9) 0.48 K/UL See_Comment [Automated messa ge] The system which generated this result transmitted reference range: 0.20-1.00 K/UL. The reference range was not used to interpret this result as normal/abnormal. ABSOLUTE NEUTROPHILS (test code = 89865-7) 5.88 K/UL See_Comment [Automated messa ge] The system which generated this result transmitted reference range: 1.50-7.50 K/UL. The reference range was not used to interpret this result as normal/abnormal. BASOPHILS (test code = 74114-6) 0.6 % EOSINOPHILS (test code = 76596-5) 1.4 % HEMATOCRIT (test code = 26846-4) 35.7 % See_Comment [Automated messa ge] The system which generated this result transmitted reference range: 34.0-45.0 %. The reference range was not used to interpret this result as normal/abnormal. HEMOGLOBIN (test code = 718-7) 12.2 G/DL See_Comment [Automated messa ge] The system which generated this result transmitted reference range: 11.5-15.5 G/DL. The reference range was not used to interpret this result as normal/abnormal. LYMPHOCYTES (test code = 55616-1) 24.9 % MCH (test code = 82159-2) 29.8 PG See_Comment [Automated messa ge] The system which generated this result transmitted reference range: 25.0-33.0 PG. The reference range was not used to interpret this result as normal/abnormal. MCHC (test code = 99865-0) 34.2 G/DL See_Comment [Automated messa ge] The system which generated this result transmitted reference range: 31.0-36.0 G/DL. The reference range was not used to interpret this result as normal/abnormal. MCV (test code = 42306-9) 87.1 fL See_Comment [Automated messa ge] The system which generated this result transmitted reference range: 80.0-99.0 fL. The reference range was not used to interpret this result as normal/abnormal. MONOCYTES (test code = 84310-4) 5.5 % NEUTROPHILS (test code = 46874-2) 67.4 % PLATELET COUNT (test code = 65698-9) 274 K/UL See_Comment [Automated messa ge] The system which generated this result transmitted reference range: 130-400 K/UL. The reference range was not used to interpret this result as normal/abnormal. RBC (test code = 48342-2) 4.10 M/UL See_Comment [Automated messa ge] The system which generated this result transmitted reference range: 3.80-5.40 M/UL. The reference range was not used to interpret this result as normal/abnormal. RDW (test code = 32881-7) 12.9 % See_Comment [Automated messa ge] The system which generated this result transmitted reference range: 11.5-15.0 %. The reference range was not used to interpret this result as normal/abnormal. WBC (test code = 17663-6) 8.7 K/UL See_Comment [Automated messa ge] The system which generated this result transmitted reference range: 3.5-11.0 K/UL. The reference range was not used to interpret this result as normal/abnormal. IRON, [id number] 00:00:00* Test Item Value Reference Range Interpretation Comme nts IRON, SERUM (test code = 2498-4) 85 UG/DL See_Comment [Automated messa ge] The system which generated this result transmitted reference range: 37-145 UG/DL. The reference range was not used to interpret this result as normal/abnormal. HEMOGLOBIN [id number] 00:00:00* Test Item Value Reference Range Interpretation Comme nts HEMOGLOBIN A1c (test code = 4548-4) 12.7 % See_Comment H [Automated messa ge] The system which generated this result transmitted reference range: 4.2-5.6 %. The reference range was not used to interpret this result as normal/abnormal. LIPID [id number] 00:00:00* Test Item Value Reference Range Interpretation Comme nts CALC LDL CHOL (test code = 68904-1) 124 MG/DL See_Comment H [Automated messa ge] The system which generated this result transmitted reference range: <100 MG/DL. The reference range was not used to interpret this result as normal/abnormal. CHOLESTEROL (test code = 2093-3) 216 MG/DL See_Comment H [Automated messa ge] The system which generated this result transmitted reference range: <200 MG/DL. The reference range was not used to interpret this result as normal/abnormal. HDL CHOLESTEROL (test code = 2085-9) 47 MG/DL See_Comment [Automated messa ge] The system which generated this result transmitted reference range: >39 MG/DL. The reference range was not used to interpret this result as normal/abnormal. RISK RATIO LDL/HDL (test code = 28954-9) 2.64 RATIO See_Comment [Automated message] The system which generated this result transmitted reference range: <3.22 RATIO. The reference range was not used to interpret this result as normal/abnormal. TRIGLYCERIDES (test code = 2571-8) 315 MG/DL See_Comment H [Automated messa ge] The system which generated this result transmitted reference range: <150 MG/DL. The reference range was not used to interpret this result as normal/abnormal. ALBUMIN/CREATININE RATIO, RANDOM [id number] 00:00:00* Test Item Value Reference Range Interpretation Comme nts ALBUMIN, URINE, RANDOM (test code = 58885-8) 13.5 MG/DL NOT ESTAB MG/DL CALC ALBUMIN/CREAT, RND (test code = 55727-7) 116 MG/G See_Comment H [Automated messa ge] The system which generated this result transmitted reference range: <30 MG/G. The reference range was not used to interpret this result as normal/abnormal. CREATININE, URINE, CONC. (test code = 2161-8) 116.5 MG/DL NOT ESTAB MG/DL COMPREHENSIVE METABOLIC [id number] 00:00:00* Test Item Value Reference Range Interpretation Comme nts ALBUMIN (test code = 1751-7) 4.4 G/DL See_Comment [Automated messa ge] The system which generated this result transmitted reference range: 3.5-5.2 G/DL. The reference range was not used to interpret this result as normal/abnormal. ALKALINE PHOSPHATASE (test code = 6768-6) 97 U/L See_Comment [Automated message] The system which generated this result transmitted reference range: 40-142 U/L. The reference range was not used to interpret this result as normal/abnormal. BILIRUBIN, TOTAL (test code = 1975-2) 0.7 MG/DL See_Comment [Automated message] The system which generated this result transmitted reference range: <=1.2 MG/DL. The reference range was not used to interpret this result as normal/abnormal. BUN (test code = 3094-0) 26 MG/DL See_Comment H [Automated messa ge] The system which generated this result transmitted reference range: 8-23 MG/DL. The reference range was not used to interpret this result as normal/abnormal. CALCIUM (test code = 56391-8) 9.7 MG/DL See_Comment [Automated messa ge] The system which generated this result transmitted reference range: 8.5-10.5 MG/DL. The reference range was not used to interpret this result as normal/abnormal. CALC A/G RATIO (test code = 1759-0) 1.4 RATIO See_Comment [Automated messa ge] The system which generated this result transmitted reference range: 1.0-2.6 RATIO. The reference range was not used to interpret this result as normal/abnormal. CALC BUN/CREAT (test code = 3097-3) 27 RATIO See_Comment [Automated messa ge] The system which generated this result transmitted reference range: 6-28 RATIO. The reference range was not used to interpret this result as normal/abnormal. CALC GLOBULIN (test code = 70617-8) 3.2 G/DL See_Comment [Automated messa ge] The system which generated this result transmitted reference range: 1.9-3.7 G/DL. The reference range was not used to interpret this result as normal/abnormal. CARBON DIOXIDE (test code = 1963-8) 29 MEQ/L See_Comment [Automated messa ge] The system which generated this result transmitted reference range: 19-31 MEQ/L. The reference range was not used to interpret this result as normal/abnormal. CHLORIDE (test code = 2075-0) 103 MEQ/L See_Comment [Automated messa ge] The system which generated this result transmitted reference range: 95-107 MEQ/L. The reference range was not used to interpret this result as normal/abnormal. CREATININE (test code = 2160-0) 0.95 MG/DL See_Comment [Automated messa ge] The system which generated this result transmitted reference range: 0.60-1.30 MG/DL. The reference range was not used to interpret this result as normal/abnormal. eGFR (2020 CKD-EPI) (test code = 58067-1) 66 ML/MIN/1.73 See_Comment [Automated messa ge] The system which generated this result transmitted reference range: >60 ML/MIN/1.73. The reference range was not used to interpret this result as normal/abnormal. GLUCOSE (test code = 1558-6) 161 MG/DL See_Comment H [Automated messa ge] The system which generated this result transmitted reference range: 70-99 MG/DL. The reference range was not used to interpret this result as normal/abnormal. POTASSIUM (test code = 2823-3) 4.5 MEQ/L See_Comment [Automated messa ge] The system which generated this result transmitted reference range: 3.5-5.4 MEQ/L. The reference range was not used to interpret this result as normal/abnormal. PROTEIN, TOTAL (test code = 2885-2) 7.6 G/DL See_Comment [Automated messa ge] The system which generated this result transmitted reference range: 6.1-8.3 G/DL. The reference range was not used to interpret this result as normal/abnormal. AST (test code = 1920-8) 23 U/L See_Comment [Automated messa ge] The system which generated this result transmitted reference range: 9-40 U/L. The reference range was not used to interpret this result as normal/abnormal. ALT (test code = 1742-6) 17 U/L See_Comment [Automated messa ge] The system which generated this result transmitted reference range: 5-40 U/L. The reference range was not used to interpret this result as normal/abnormal. SODIUM (test code = 2951-2) 141 MEQ/L See_Comment [Automated messa ge] The system which generated this result transmitted reference range: 133-146 MEQ/L. The reference range was not used to interpret this result as normal/abnormal. HEMOGLOBIN [id number] 00:00:00* Test Item Value Reference Range Interpretation Comme nts A1C (test code = 4548-4) 14.0 HEMOGLOBIN [id number] 00:00:00* Test Item Value Reference Range Interpretation Comme nts A1C (test code = 4548-4) 10.8 HEMOGLOBIN [id number] 00:00:00* Test Item Value Reference Range Interpretation Comme nts A1C (test code = 4548-4) 8.2% HEMOGLOBIN [id number] 00:00:00* Test Item Value Reference Range Interpretation Comme nts A1C (test code = 4548-4) 8.6 DEXA, BONE DENSITY AXIAL SKELEDEXA, BONE DENSITY AXIAL [id number] SCR TANYA BILAT W/CAD3D SCR TANYA BILAT W/CAD
--- NOTE | 2024-01-07 16:19 | RAD REPORT ---
EXAM DESCRIPTION: CT - Head Brain Wo Cont - 01/07/2024 3:17 pm CLINICAL HISTORY: headache, weakness COMPARISON: Head Brain Wo Cont dated 04/23/2018 TECHNIQUE: Noncontrast head CT images were obtained without IV contrast. Multiplanar reformats were generated and reviewed. All CT scans are performed using dose optimization technique as appropriate and may include automated exposure control or mA/KV adjustment according to patient size. FINDINGS: No intracranial hemorrhage, mass, or edema. Midline structures are unremarkable. Normal ventricular caliber for age. Ryan-white matter differentiation is preserved, without evidence of acute infarct. No abnormal extra- axial fluid collections. Mastoid air cells and visualized portions of the paranasal sinuses are clear. No acute bony findings. IMPRESSION: No evidence of an acute intracranial process.
--- NOTE | 2024-01-07 16:20 | RAD REPORT ---
EXAM DESCRIPTION: RADChest Single View01/07/2024 3:27 pm CLINICAL HISTORY: generalized weaknes COMPARISON: Chest Single View dated 05/12/2019; Chest Pa And Lat (2 Views) dated 04/24/2019; Chest Sin gle View dated 11/27/2016; Chest Single View dated 09/26/2016 TECHNIQUE: Portable AP view of the chest. FINDINGS: The lungs are clear. No pneumothorax or effusion. The cardiomediastinal contours are unre markable. IMPRESSION: No acute cardiopulmonary process.
[2024-01-07 16:46] LABS: Absolute Lymphocytes (CBC) 2.2 K/uL (0.7-4.9); Hematocrit 28.5 % (36.0-45.0); Lymphocytes % 24.4 % (15.3-44.8); MCV 83.6 fL (80-100); MPV 8.1 fL (7.6-11.3); Platelets 227 thou/uL (152-406); RBC Red Blood Cell Count 3.41 M/uL (3.86-4.86)
[2024-01-07 17:10] LABS: Magnesium 1.6 mg/dL (1.6-2.4); Potassium 4.3 mEq/L (3.5-5.1); Troponin High Sensitivity 9.6 pg/mL (<58.9)
--- NOTE | 2024-01-07 17:25 | ER ---
Nurse's Notes [facility] Name: Myriam Bryant Age: 68 yrs Sex: Female : 1955 Arrival Date: 01/07/2024 Time: 14:34 Bed 18 Private MD: Diagnosis: Muscle weakness (generalized);Paresthesia of skin Presentation: 01/07 14:51 Chief complaint: Patient states: off and on not feeling well, getting worse last night ko1 and today. Coronavirus screen: At this time, the client does not indicate any symptoms associated with coronavirus-19. Ebola Screen: No symptoms or risks identified at this time. Initial Sepsis Screen: Does the patient meet any 2 criteria? No. Patient's initial sepsis screen is negative. Does the patient have a suspected source of infection? No. Patient's initial sepsis screen is negative. Risk Assessment: Do you want to hurt yourself or someone else? Patient reports no desire to harm self or others. Onset of symptoms was January 07, 2024. 14:51 Method Of Arrival: Ambulatory ko1 14:51 Acuity: VALDEMAR 3 ko1 Triage Assessment: 14:52 General: Appears in no apparent distress. uncomfortable, ill, Behavior is calm, ko1 cooperative, appropriate for age. Pain: Complains of pain in generalized pain, headache. Neuro: Reports dizziness, headache weakness. Historical: - Allergies: 14:52 No Known Allergies; ko1 - PMHx: 14:52 Arthritis; Diabetes - NIDDM; Hyperlipidemia; Hypertensive disorder; ko1 - Immunization history:: Adult Immunizations up to date. - Social history:: Smoking status: Patient denies any tobacco usage or history of. Screenin:53 [facility] ED Fall Risk Assessment (Adult) History of falling in the last 3 months, db including since admission No falls in past 3 months (0 pts) Confusion or Disorientation No (0 pts) Intoxicated or Sedated No (0 pts) Impaired Gait No (0 pts) Mobility Assist Device Used No (0 pt) Altered Elimination No (0 pt) Score/Fall Risk Level 0 - 2 = Low Risk Oriented to surroundings, Maintained a safe environment. Abuse screen: Denies threats or abuse. Denies injuries from another. Nutritional screening: No deficits noted. Tuberculosis screening: No symptoms or risk factors identified. Assessment: 15:45 Reassessment: Patient appears in no apparent distress at this time. Patient and/or db family updated on plan of care and expected duration. Pain level reassessed. Patient is alert, oriented x 3, equal unlabored respirations, skin warm/dry/pink. 16:52 Reassessment: Patient appears in no apparent distress at this time. Patient and/or db family updated on plan of care and expected duration. Pain level reassessed. Patient is alert, oriented x 3, equal unlabored respirations, skin warm/dry/pink. General: Appears in no apparent distress. comfortable, Behavior is calm, cooperative. 17:30 Reassessment: Patient appears in no apparent distress at this time. Patient and/or db family updated on plan of care and expected duration. Pain level reassessed. Patient is alert, oriented x 3, equal unlabored respirations, skin warm/dry/pink. 18:10 Reassessment: Patient appears in no apparent distress at this time. Patient and/or db family updated on plan of care and expected duration. Pain level reassessed. Patient is alert, oriented x 3, equal unlabored respirations, skin warm/dry/pink. Patient states feeling better. Patient states symptoms have improved. Neuro: Level of Consciousness is awake, alert, obeys commands, Oriented to person, place, time, situation. Respiratory: Airway is patent Respiratory effort is even, unlabored, Respiratory pattern is regular, symmetrical. Vital Signs: 14:52 BP 208 / 72; Pulse 76; Resp 15; Temp 97.6; Pulse Ox 100% ; ko1 15:30 BP 200 / 67; Pulse 67; Resp 16; Pulse Ox 99% on R/A; db 16:00 BP 193 / 65; Pulse 71; Resp 18; Pulse Ox 99% on R/A; db 16:20 BP 200 / 66; Pulse 68; Resp 18; Pulse Ox 99% on R/A; db 16:40 BP 154 / 62; Pulse 74; Resp 16; Pulse Ox 99% on R/A; db 17:00 BP 162 / 68; Pulse 75; Resp 17; Pulse Ox 100% ; db 17:20 BP 160 / 66; Pulse 75; Resp 18; Pulse Ox 100% on R/A; db 17:40 BP 171 / 62; Pulse 75; Resp 18; Pulse Ox 100% on R/A; db ED Course: 14:39 Patient arrived in ED. mg5 14:40 Tru Quinones DO is Attending Physician. ms3 14:52 Triage completed. ko1 14:52 Arm band placed on right wrist. Patient placed in waiting room, in a wheelchair, ko1 Patient notified of wait time. 15:19 Head Brain Wo Cont CT In Process Unspecified. EDMS 15:29 XRAY Chest (1 view) In Process Unspecified. EDMS 15:48 Elyssa Vargas, RN is Primary Nurse. db 16:30 Inserted saline lock: 22 gauge in right forearm, using aseptic technique. Blood db collected. 16:53 Patient has correct armband on for positive identification. Bed in low position. Call db light in reach. Side rails up X 1. Client placed on continuous cardiac and pulse oximetry monitoring. NIBP monitoring applied. Warm blanket given. 18:10 Provided Education on: DISCHARGE. db 18:10 No provider procedures requiring assistance completed. IV discontinued, intact, db bleeding controlled, No redness/swelling at site. Administered Medications: 16:35 Drug: Labetalol IV 10 mg IV at calculated rate once Route: IV; Rate: calculated rate; db Site: right forearm; 18:12 Follow up: Response: No adverse reaction; IV Status: Completed infusion db Medication: 18:10 VIS not applicable for this client. db Outcome: 17:24 Discharge ordered by . ms3 18:10 Discharged to home ambulatory, with family, db 18:10 Condition: stable 18:10 Discharge instructions given to patient, Instructed on discharge instructions, follow up and referral plans. 18:12 Patient left the ED. db Signatures: Dispatcher [employer] EDWA Tru Quinones DO DO ms3 Laura Gar, RN RN ko1 Elyssa Vargas, RN RN Nicole Jacobson 5
--- NOTE | 2024-01-07 17:25 | EDPHYS ---
Physician Documentation [facility] Name: Myriam Bryant Age: 68 yrs Sex: Female : 1955 Arrival Date: 01/07/2024 Time: 14:34 Bed 18 Private MD: ED Physician Tru Quinones HPI: 01/07 15:06 This 68 yrs old Female presents to ER via Ambulatory with complaints of ms3 Weakness, Doesn't Feel Right. 15:06 68-year-old female with past medical history of arthritis, diabetes, hyperlipidemia, ms3 hypertension presents to the emergency department for generalized weakness that has been ongoing for 1 week and became worse today. Patient's family member states patient becomes sick at her stomach after taking metformin and dizzy after taking lisinopril. Patient endorses headache and body tingling. Patient states her discomfort is a 5/10. Patient endorses nausea, denies vomiting, fevers, chills, shortness of breath, chest pain.. Historical: - Allergies: 14:52 No Known Allergies; ko1 - PMHx: 14:52 Arthritis; Diabetes - NIDDM; Hyperlipidemia; Hypertensive disorder; ko1 - Immunization history:: Adult Immunizations up to date. - Social history:: Smoking status: Patient denies any tobacco usage or history of. ROS: 15:06 Eyes: Negative for injury, pain, redness, and discharge, Neck: Negative for injury, ms3 pain, and swelling, Cardiovascular: Negative for chest pain, and palpitations. Respiratory: Negative for shortness of breath, cough, wheezing, and pleuritic chest pain, Abdomen/GI: Negative for abdominal pain, nausea, vomiting, diarrhea, and constipation, MS/Extremity: Negative for injury and deformity, Skin: Negative for injury, rash, and discoloration, 15:06 Constitutional: Positive for Generalized weakness, 15:06 Neuro: Positive for headache, 15:06 All other systems are negative, Exam: 15:06 Constitutional: This is a well developed, well nourished patient who is awake, alert, ms3 and in no acute distress. Head/Face: Normocephalic, atraumatic. Neck: Trachea midline, no cervical lymphadenopathy. Supple, full range of motion without nuchal rigidity, or vertebral point tenderness. No Meningismus. Chest/axilla: Normal chest wall appearance and motion. Nontender with no deformity. Cardiovascular: Regular rate and rhythm with a normal S1 and S2. No gallops, murmurs, or rubs. Normal PMI, no JVD. No pulse deficits. Respiratory: Lungs have equal breath sounds bilaterally, clear to auscultation and percussion. No rales, rhonchi or wheezes noted. No increased work of breathing, no retractions or nasal flaring. Abdomen/GI: Soft, non-tender, with normal bowel sounds. No distension or tympany. No guarding or rebound. No evidence of tenderness throughout. Skin: Warm, dry with normal turgor. Normal color with no rashes, no lesions, and no evidence of cellulitis. MS/ Extremity: Pulses equal, no cyanosis. Neurovascular intact. Full, normal range of motion. Neuro: Awake and alert, GCS 15, oriented to person, place, time, and situation. Cranial nerves II-XII grossly intact. Motor strength 5/5 in all extremities. Sensory grossly intact. Cerebellar exam normal. Normal gait. 18:01 ECG was reviewed by the Attending Physician. ms3 Vital Signs: 14:52 BP 208 / 72; Pulse 76; Resp 15; Temp 97.6; Pulse Ox 100% ; ko1 15:30 BP 200 / 67; Pulse 67; Resp 16; Pulse Ox 99% on R/A; db 16:00 BP 193 / 65; Pulse 71; Resp 18; Pulse Ox 99% on R/A; db 16:20 BP 200 / 66; Pulse 68; Resp 18; Pulse Ox 99% on R/A; db 16:40 BP 154 / 62; Pulse 74; Resp 16; Pulse Ox 99% on R/A; db 17:00 BP 162 / 68; Pulse 75; Resp 17; Pulse Ox 100% ; db 17:20 BP 160 / 66; Pulse 75; Resp 18; Pulse Ox 100% on R/A; db 17:40 BP 171 / 62; Pulse 75; Resp 18; Pulse Ox 100% on R/A; db MDM: 15:04 Patient medically screened. ms3 15:06 Data reviewed: vital signs, nurses notes. ED course: Differential diagnosis includes ms3 myocardial infarction versus intracranial hemorrhage versus electrolyte abnormality versus hypertension. 17:25 I considered the following discharge prescriptions or medication management in the ms3 emergency department Medications were administered in the Emergency Department. See MAR. Independent interpretation of the following test(s) in the Emergency Department EKG: See my EKG interpretation above. Historians other than the Patient: Daughter/Son: Son. Care significantly affected by the following chronic conditions: Diabetes, Hypertension. Counseling: I had a detailed discussion with the patient and/or guardian regarding the historical points, exam findings, and any diagnostic results supporting the discharge/admit diagnosis, lab results, radiology results, the need for outpatient follow up, to return to the emergency department if symptoms worsen or persist or if there are any questions or concerns that arise at home. Response to treatment: the patient's symptoms have markedly improved after treatment, and as a result, I will discharge patient. Special discussion: I discussed with the patient/guardian in detail that at this point there is no indication for admission to the hospital. It is understood, however, that if the symptoms persist or worsen the patient needs to return immediately for re-evaluation. ED course: Discussed labs, imaging with patient. Patient to follow-up with primary care physician tomorrow as scheduled. Patient's son understands and agrees with plan. All questions were answered. Return precautions discussed include worsening symptoms, or any other concerns. 01/07 15:05 Order name: Basic Metabolic Panel; Complete Time: 17:12 ms3 01/07 15:05 Order name: CBC with Diff; Complete Time: 17:12 ms3 01/07 15:05 Order name: Magnesium; Complete Time: 17:12 ms3 01/07 15:05 Order name: Troponin HS; Complete Time: 17:12 ms3 01/07 15:05 Order name: XRAY Chest (1 view); Complete Time: 16:30 ms3 01/07 15:05 Order name: Head Brain Wo Cont CT; Complete Time: 16:30 ms3 01/07 15:05 Order name: Cardiac monitoring; Complete Time: 15:45 ms3 01/07 15:05 Order name: EKG - Nurse/Tech; Complete Time: 16:39 ms3 01/07 15:05 Order name: IV Saline Lock; Complete Time: 16:39 ms3 01/07 15:05 Order name: Labs collected and sent; Complete Time: 16:39 ms3 01/07 15:05 Order name: O2 Per Protocol; Complete Time: 16:39 ms3 01/07 15:05 Order name: O2 Sat Monitoring; Complete Time: 16:39 ms3 EC:01 Rate is 70 beats/min. Rhythm is regular. QRS [place] is Normal. WA interval is normal. QRS ms3 interval is normal. Clinical impression: Normal ECG. Interpreted by me. Reviewed by me. Administered Medications: 16:35 Drug: Labetalol IV 10 mg IV at calculated rate once Route: IV; Rate: calculated rate; db Site: right forearm; 18:12 Follow up: Response: No adverse reaction; IV Status: Completed infusion db Disposition Summary: 01/07/24 17:24 Discharge Ordered Notes: Location: Home ms3 Condition: Stable ms3 Diagnosis - Muscle weakness (generalized) ms3 - Paresthesia of skin ms3 Followup: ms3 - With: Private Physician - When: 1 - 2 days - Reason: Recheck today's complaints Discharge Instructions: - Discharge Summary Sheet ms3 - Paresthesia ms3 - Weakness ms3 Forms: - Medication Reconciliation Form ms3 - Thank You Letter ms3 - Antibiotic Education ms3 - Prescription Opioid Use ms3 - Patient Portal Instructions ms3 - Leadership Thank You Letter ms3 Signatures: Dispatcher [employer] EDTru Hall DO DO ms3 Laura Gar, RN RN ko1 Elyssa Vargas, RN RN db
[2024-01-09 01:02] VITALS: BP 171/62; TEMP 97.6; O2SAT 100
== END ==
LOC: ER 14:34
DX: M62.81 Muscle weakness (generalized) (principal); R20.2 Paresthesia of skin; R51.9 Headache, unspecified; E11.9 Type 2 diabetes mellitus without complications; I10 Essential (primary) hypertension
CPT/HCPCS: 36415; 70450; 71045; 80048; 83735; 84484; 85025

== ENCOUNTER 2024-04-29 07:31 | Emergency (ER) | payer OTHER ==
--- OUTSIDE RECORDS SUMMARY | 2024-04-29 07:36 | XMS REPORT | Continuity of Care Document ---
Author Name Unknown Address [address] [facility] Juan Francisco. [address] [place] [address] [facility] Address [address] [facility]. [address] [place] [address] Care Team Providers Care Chamber Walker Name Role Phone GLORIA SIMS Primary Care Physician UnavailOnesimo Logan Attending Clinician Unavailable Gloria Sims Attending Clinician Unavailable DIVYA RUVALCABA Attending Clinician DIVYA Thibodeaux JR Attending Clinician UnavailANISA Whalen Attending Clinician UnavailTJ Byrd Attending Clinician Unavailable ANDERSON WOODS Attending Clinician SIOBHAN Dillard Attending Clinician Unavailable Siobhan Pereira MD Attending Clinician [phone] Anderson Malave Attending Clinician + [phone] Jonnie ARRIAGA Attending Clinician Unavailable Anisa Jacob MD Attending Clinician [phone] Divya Ruvalcaba MD Attending Clinician + [phone] Doctor Unassigned, [place] Attending Clinician U navailable Only, Adc Test Attending Clinician Unavailable Pob, [facility] Main Attending Clinician Unavailjonathan Cam Jr., MD, Divya Ramires Attending Clinician +- [phone] Veronica DIXON, Patricia Jean Baptiste Attending Clinician [phone] Yue RN, Yesenia Attending Clinician Unavailjonathan Benítez RN, Matt A Attending Clinician Unavail able Triplett PAC, Sun S Attending Clinician [phone] DIVYA RUVALCABA Admitting Clinician UnaDIVYA Winkler JR Admitting Clinician UnavailANISA Whalen Admitting Clinician UnavailSIOBHAN Kingston Admitting Clinician Unavailable Jonnie ARRIAGA Admitting Clinician Unavailable Jordon DIXON, Divya Salazar Admitting Clinician +- [phone] Dorina Simental MD, Divya Ramires Admitting Clinician + [phone] Nidia DIXON, Anisa Admitting Clinician [phone] Payers Payer Name Policy Type Policy Number Effective Date Expirati on Date Source [employer] MEDICARE ADVANTAGE [id number] 2021 00:00:00 [facility] AARP MCR Advantage (HMO-POS) 53 [id number] 2020 00:00:00 [facility] MEDICARE NOVITAS [id number] 2020 00:00:00 [facility] [id number] 2020 00:00:00 [facility] CHOICE [id number] 2017 00:00:00 Problems Condition Name Condition Details Condition Category Status Onset Date Resolution Date Last Treatment Date Treating Clinician Comments Source Peripheral arterial disease Peripheral arterial disease Disease Active 04-24 00:00: 00 Overview: Formattin g of this note might be different from the original. Added automatic ally from request for surgery [id number] [facility] Neuropathy Neuropathy Disease Active 04-24 00:00: 00 Overview: Formattin g of this note might be different from the original. Added automatic ally from request for surgery [id number] [facility] PAD (periphera l artery disease) PAD (periphera l artery disease) Disease Active 04-06 00:00: 00 [facility] Type 2 diabetes mellitus with complicati on, without long-term current use of insulin Type 2 diabetes mellitus with complicati on, without long-term current use of insulin Disease Active 08-18 00:00: 00 [facility] Dyslipidem ia Dyslipidem ia Disease Active 08-18 00:00: 00 [facility] Elevated ALT measuremen t Elevated ALT measuremen t Disease Active 08-18 00:00: 00 [facility] [id number] Current moderate episode of major depressive disorder without prior episode Problem [facility] [id number] Chronic fatigue Problem [facility] [id number] Nausea and vomiting, intractabi lity of vomiting not specified, unspecifie d vomiting type Problem [facility] Foot pain Foot pain Problem [facility] Decreased hearing Decreased hearing Problem [facility] Colon cancer screening Colon cancer screening Problem [facility] [id number] Chronic pain syndrome Problem [facility] [id number] Skin lesion Problem [facility] [id number] Anemia, unspecifie d type Problem [facility] [id number] Nonintract able headache, unspecifie d chronicity pattern, unspecifie d headache type Problem [facility] [id number] Mixed hyperlipid emia Problem [facility] [id number] Uncontroll ed type 2 diabetes mellitus without complicati on, without long-term current use of insulin Problem 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 32616953 Abnormal liver function Problem [facility] [id number] Vitamin D deficiency Problem [facility] 03882091 Essential hypertensi on Problem [facility] [id number] Gastroesop hageal reflux disease, esophagiti s presence not specified Problem [facility] Allergies, Adverse Reactions, Alerts Allergy Name Allergy Type Status Severity Reaction(s) Onset Date Inactive Date Treating Clinician Comments Source NO KNOWN ALLERGIE S Drug Class Active [facility] Social History Social Habit Start Date Stop Date Quantity Comments Source History of Tobacco Use [facility] Sex Assigned At [facility] Exposure to SARS-CoV-2 (event) 2022-06-19 00:00:00 2022-06-29 20:04:00 Not sure [facility] Tobacco use and exposure 2021-04-06 00:00:00 2021-04-06 00:00:00 Smokeless tobacco non-user [facility] Smoking Status Start Date Stop Date Source Never Smoker [facility] Medications Ordered Medication Name Filled Medication Name Start Date Stop Date Current Medication? Ordering Clinician Indication Dosage Frequency Signature (SIG) Comments Components Source Pregabalin 75 MG Pregabalin 75 MG 2022-12 2- 00:00: 00 No 1{capsu le} BID Pregabalin 75 MG Pregabalin 75 MG Pregabalin 75 MG 2022-12 2- 00:00: 00 No 1{capsu le} BID Pregabalin [...] Sodium 70 MG Cyanocobala min Cyanocobala min 2021-0 9-14 00:00: [address] [facility] Cyanocobala min Cyanocobala min 2021-0 9-14 00:00: [address] [facility] Cyanocobala min Cyanocobala min 2021-0 9-14 00:00: 00 No 1000ug [facility] Cyanocobala min Cyanocobala min 2021-0 9-14 00:00: [address] [facility] Cyanocobala min Cyanocobala min 2021-0 9-14 00:00: 00 No 1000ug [facility] Cyanocobala min Cyanocobala min 0 -14 00:00: 00 No 1000ug [facility] Cyanocobala min Cyanocobala min 2021-0 9-14 00:00: 00 No 1000ug [facility] Cyanocobala min Cyanocobala min 2021-0 9-14 00:00: 00 No 1000ug [facility] Cyanocobala min Cyanocobala min 2021-0 9-14 00:00: 00 No 1000ug [facility] Cyanocobala min Cyanocobala min 2021-0 9-14 00:00: 00 No 1000ug [facility] Cyanocobala min Cyanocobala min 2021-0 9-14 00:00: [address] [facility] Cyanocobala min Cyanocobala min 2021-0 9-14 00:00: [address] [facility] Cyanocobala min Cyanocobala min 2021-0 9-14 00:00: 00 No 1000ug [facility] Vitamin B12 (Cyanocobal riggs) Vitamin B12 (Cyanocobal riggs) 2-0 8-16 00:00: 00 No 1000ug [facility] Cyanocobala min Cyanocobala min 2021-0 8-16 00:00: 00 No 1000ug [facility] Cyanocobala min Cyanocobala min 2021-0 8-16 00:00: 00 No 1000ug [facility] Cyanocobala min Cyanocobala min 2021-0 8-16 00:00: 00 No 1000ug [facility] Cyanocobala min Cyanocobala min 2021-0 8-16 00:00: 00 No 1000ug [facility] Cyanocobala min Cyanocobala min 0 8-16 00:00: 00 No 1000ug [facility] Cyanocobala min Cyanocobala min 0 8-16 00:00: 00 No 1000ug [facility] Cyanocobala min Cyanocobala min 2021-0 8-16 00:00: 00 No 1000ug [facility] Cyanocobala min Cyanocobala min 0 8-16 00:00: 00 No 1000ug [facility] Cyanocobala min Cyanocobala min 0 8-16 00:00: 00 No 1000ug [facility] Cyanocobala min Cyanocobala min 0 8-16 00:00: 00 No 1000ug [facility] Cyanocobala min Cyanocobala min 0 8-16 00:00: 00 No 1000ug [facility] Cyanocobala min Cyanocobala min 0 8-16 00:00: 00 No 1000ug [facility] Cyanocobala min Cyanocobala min 0 8-16 00:00: 00 No 1000ug [facility] NaCl 0.9% (NS) bolus infusion 500 mL 06-30 01:30: 00 06-30 04:00 :00 No 500mL at 999 mL/hr, 500 mL, IV Infusion, ONCE, 1 dose, On 06/29/22 at 2030, STAT [facility] diphenhydrA MINE (BENADRYL) injection 25 mg 06-30 01:30: 00 06-30 01:48 :00 No 25mg 25 mg, Slow IV Push, ONCE, 1 dose, On 06/29/22 at 2030, STAT [facility] metoclopram ana HCl (REGLAN) injection 10 mg 06-30 01:30: 00 06-30 01:48 :00 No 10mg 10 mg, Slow IV Push, ONCE, 1 dose, On 06/29/22 at 2030, ZARI [facility] ondansetron (ZOFRAN) 4 mg tablet 06-29 00:00: 00 Yes [id number] 4mg Take 1 tablet by mouth every 8 (eight) hours as needed for Nausea and Vomiting (N/V). [facility] traMADoL (ULTRAM) 50 mg tablet 06-29 00:00: 00 Yes [id number] 50mg Take 1 tablet by mouth every 6 (six) hours as needed for Pain (scale 7-10). Indication s: acute pain [facility] butalbital- acetaminoph en-caff 50-325-40 mg tablet 06-29 00:00: 00 06-29 00:00 :00 No [id number] 1{tbl} Take 1 tablet by mouth every 6 (six) hours as needed (Headache) . [facility] Sertraline HCl 25 MG Sertraline HCl 25 MG 06-13 00:00: 00 No 1{table t} QD Sertraline HCl 25 MG Sertraline HCl 25 MG Sertraline HCl 25 MG 06-13 00:00: 00 No 1{table t} QD Sertraline HCl 25 MG Sertraline HCl 25 MG Sertraline HCl 25 MG 06-13 00:00: 00 No 1{table t} QD Sertraline HCl 25 MG empaglifloz in (JARDIANCE) 10 mg 05-30 14:30: 22 Yes 10mg Take 10 mg by mouth daily. [facility] DULoxetine 30 mg CDRS 05-30 14:30: 22 Yes 1{capsu le} Take 1 capsule by mouth 2 (two) times daily. [facility] Jardiance 10 MG Jardiance 10 MG 05-15 00:00: 00 06-14 00:00 :00 No 1{table t} QD Jardiance 10 MG pioglitazon e 15 mg tablet 05-09 16:17: 08 Yes 15mg Take 15 mg by mouth daily. [facility] gabapentin 100 mg capsule 05-09 16:17: 08 Yes 100mg Take 100 mg by mouth 3 (three) times daily. [facility] lisinopriL 10 mg tablet 05-09 16:17: 08 Yes 10mg Take 10 mg by mouth daily. [facility] rosuvastati n 20 mg tablet 05-09 16:17: 08 Yes 20mg Take 20 mg by mouth at bedtime. [facility] glimepiride 4 mg tablet 05-09 16:14: 17 Yes 4mg Take 4 mg by mouth daily with breakfast. [facility] Insulin Glargine (LANTUS SOLOSTAR U-100 INSULIN) 100 unit/mL (3 mL) injection 05-09 16:14: 17 Yes inject under the skin. [facility] metFORMIN 1,000 mg tablet 05-09 16:14: 17 Yes 1000mg Take 1,000 mg by mouth 2 (two) times daily with meals. [facility] diazePAM 5 MG diazePAM 5 MG 01-25 00:00: 00 No 1{table t_as_ne eded} QD diazePAM 5 MG diazePAM 5 MG diazePAM 5 MG 01-25 00:00: 00 No 1{table t_as_ne eded} QD diazePAM 5 MG diazePAM 5 MG diazePAM 5 MG 01-25 00:00: 00 No 1{table t_as_ne eded} QD diazePAM 5 MG diazePAM 5 MG diazePAM 5 MG 01-25 00:00: 00 No 1{table t_as_ne eded} QD diazePAM 5 MG DULoxetine HCl 20 MG DULoxetine HCl 20 MG 2-22 00:00: 00 No 1{capsu le} QD DULoxetine HCl 20 MG dicyclomine HCl (DICYCLOMIN E ORAL) 2020-12 08:53: 10 Yes 200mg Take 200 mg by mouth. [facility] ergocalcife rol, vitamin d2, (VITAMIN D2) 50,000 unit capsule 2020-12 08:53: 10 Yes [id number] Take 50,000 Units by mouth weekly. [facility] metFORMIN 500 mg tablet 2020-12 08:53: 10 Yes 500mg Take 500 mg by mouth 2 (two) times daily with meals. [facility] meloxicam 7.5 mg tablet 2020-12 08:53: 10 Yes 7.5mg Take 7.5 mg by mouth daily. [facility] pioglitazon e 30 mg tablet 2020-12 08:53: 10 Yes 30mg Take 30 mg by mouth daily. [facility] Rollator walker n/s Rollator walker n/s -28 00:00: 00 No Rollator walker n/s Pioglitazon e HCl 30 MG Pioglitazon e HCl 30 MG - 00:00: 00 No 1{table t} QD Pioglitazo ne HCl 30 MG Pioglitazon e HCl 30 MG Pioglitazon e HCl 30 MG 9- 00:00: 00 No 1{table t} QD Pioglitazo ne HCl 30 MG MINOCYCLINE 100 mg capsule 8-24 00:00: 00 Yes [id number] TAKE 1 CAPSULE BY MOUTH EVERY 12 HOURS FOR 7 DAYS [facility] Contour Next Test - Contour Next [...] Next Test - traMADoL 50 mg tablet 2020-0 05 00:00: 00 Yes [id number] 50mg Take 1 tablet by mouth every 6 (six) hours as needed for Pain (scale 7-10). Indication s: acute pain [facility] acetaminoph en-codeine 300-30 mg tablet 0 05-30 00:00: 00 Yes [id number] 1{tbl} Take 1 tablet by mouth every 6 (six) hours as needed for Pain (scale 7-10) for up to 18 doses. Indication s: acute pain [facility] Pen Conde 5/16" 31G X 8 MM Pen Conde 5/16" 31G X 8 MM 2020-0 04-26 00:00: 00 No QD Pen Conde 5/16" 31G X 8 MM Lisinopril 10 MG Lisinopril 10 MG 2020-0 04-26 00:00: 00 No 1{table t} QD Lisinopril 10 MG Pen Conde 5/16" 31G X 8 MM Pen Conde 5/16" 31G X 8 MM 2021-0 04-26 00:00: 00 No QD Pen Conde 5/16" 31G X 8 MM Pen Conde 5/16" 31G X 8 MM Pen Conde 5/16" 31G X 8 MM 2020-0 04-26 00:00: 00 No QD Pen Conde 5/16" 31G X 8 MM Lisinopril 10 MG Lisinopril 10 MG 2020-0 04-26 00:00: 00 No 1{table t} QD Lisinopril 10 MG Lisinopril 10 MG Lisinopril 10 MG 2020-0 04-26 00:00: 00 No 1{table t} QD Lisinopril 10 MG Pen Conde 5/16" 31G X 8 MM Pen Conde 5/16" 31G X 8 MM 1-0 04-26 00:00: 00 No QD Pen Conde 5/16" 31G X 8 MM Lisinopril 10 MG Lisinopril 10 MG 1-0 04-26 00:00: 00 No 1{table t} QD Lisinopril 10 MG Pen Conde 5/16" 31G X 8 MM Pen Conde 04/15" 31G X 8 MM 04-26 00:00: 00 No QD Pen Conde 04/15" 31G X 8 MM aspirin 81 mg chewable tablet 04-07 00:00: 00 Yes [id number] 81mg Take 1 tablet by mouth daily. [facility] atorvastati n (LIPITOR) 20 mg tablet 08-24 00:00: 00 Yes 20mg Take 1 tablet by mouth at bedtime. [facility] Pioglitazon e HCl Pioglitazon e HCl 08-07 00:00: 00 Yes Kamala Millender 1 tablet [facility] Januvia Scottyuvia 08-06 00:00: 00 Yes Kamala Millender 1 tablet [facility] Ondansetron HCl Ondansetron HCl 08-06 00:00: 00 Yes Kamala Millender 1 tablet as needed for nausea/vom iting [facility] Lancets Lancets 04-09 00:00: 00 Yes Kamala Garcia as directed; dispense lancets formulary to [facility] BL Blood Glucose Monitor Kit BL Blood Glucose Monitor Kit 04-09 00:00: 00 Yes Kamala Garcia As directed; DISPENSE BG MONITOR FORMULARY TO [facility] blood glucose test strip blood glucose test strip 04-09 00:00: 00 07-03 00:00 :00 No Kamala Garcia as directed; DISPENSE TESTING STRIPS FORMULARY TO [facility] Glimepiride Glimepiride Yes Kamala Millender 1 tablet [facility] Gabapentin Gabapentin Yes Kamala Millender 1 capsule [facility] Cyclobenzap rine HCl Cyclobenzap rine HCl Yes Kamala Millender 1 tablet as needed [facility] Mobic Mobic Yes Kamala Millender 1 tablet [facility] Metformin HCl Metformin HCl Yes Kamala Millender 1 tablet with a meal [facility] Aspirin 81 81 MG Aspirin 81 81 [...] 1{table t} QD Aspirin 81 81 MG Jardiance 25 MG Jardiance 25 MG 11-13 00:00 :00 No 1{table t} QD Jardiance 25 MG Jardiance 10 MG Jardiance 10 MG 10-11 00:00 :00 No 1{table t} QD Jardiance 10 MG Immunizations Ordered Immunization Name Filled Immunization Name Date Status Comments Source FLUZONE HIGH DOSE OVER 65 FLUZONE HIGH DOSE OVER 65 2021-10-16 14:11:00 Completed [facility] FLUZONE HIGH DOSE OVER 65 FLUZONE HIGH DOSE OVER 65 2021-10-16 14:11:00 Completed [facility] FLUZONE HIGH DOSE OVER 65 FLUZONE HIGH DOSE OVER 65 2021-10-16 14:11:00 Completed [facility] FLUZONE HIGH DOSE OVER 65 FLUZONE HIGH DOSE OVER 65 2021-10-16 14:11:00 Completed [facility] FLUZONE HIGH DOSE OVER 65 FLUZONE HIGH DOSE OVER 65 2021-10-16 14:11:00 Completed [facility] FLUZONE HIGH DOSE OVER 65 FLUZONE HIGH DOSE OVER 65 2021-10-16 14:11:00 Completed [facility] FLUZONE HIGH DOSE OVER 65 FLUZONE HIGH DOSE OVER 65 2021-10-16 14:11:00 Completed [facility] FLUZONE HIGH DOSE OVER 65 FLUZONE HIGH DOSE OVER 65 2021-10-16 14:11:00 Completed [facility] FLUZONE HIGH DOSE OVER 65 FLUZONE HIGH DOSE OVER 65 2021-10-16 14:11:00 Completed [facility] COVID-19 Vaccine (Brett) COVID-19 Vaccine (Brett) 2021-02-19 14:31:00 Completed [facility] COVID-19 Vaccine (Brett) COVID-19 Vaccine (Brett) 2021-02-19 14:31:00 Completed [facility] COVID-19 Vaccine (Brett) COVID-19 Vaccine (Brett) 2021-02-19 14:31:00 Completed [facility] COVID-19 Vaccine (Brett) COVID-19 Vaccine (Brett) 2021-02-19 14:31:00 Completed [facility] COVID-19 Vaccine (Brett) COVID-19 Vaccine (Brett) 2021-02-19 14:31:00 Completed [facility] COVID-19 Vaccine (Brett) COVID-19 Vaccine (Brett) 2021-02-19 14:31:00 Completed [facility] COVID-19 Vaccine (Brett) COVID-19 Vaccine (Brett) 2021-02-19 14:31:00 Completed [facility] COVID-19 Vaccine (Brett) COVID-19 Vaccine (Brett) 2021-02-19 14:31:00 Completed [facility] COVID-19 Vaccine (Brett) COVID-19 Vaccine (Brett) 2021-02-19 14:31:00 Completed [facility] COVID-19 Vaccine (Brett) COVID-19 Vaccine (Brett) 2021-02-19 14:31:00 Completed [facility] SARS-COV-2 COVID-19 BRETT/J&J VACCINE 2021-02-19 00:00:00 Completed [facility] SARS-COV-2 COVID-19 BRETT/J&J VACCINE 2021-02-19 00:00:00 Completed [facility] Prevnar 20 (PCV20) Prevnar 20 (PCV20) Unknown Completed [facility] Fluad (aIIV4) - SDS - 0.5mL Fluad (aIIV4) - SDS - 0.5mL Unknown Completed [facility] COVID-19 Vaccine (Brett) COVID-19 Vaccine (Brett) Unknown Completed [facility] FLUZONE HIGH DOSE OVER 65 FLUZONE HIGH DOSE OVER 65 Unknown Completed [facility] Prevnar 20 (PCV20) Prevnar 20 (PCV20) Unknown Completed [facility] Fluad (aIIV4) - SDS - 0.5mL Fluad (aIIV4) - SDS - 0.5mL Unknown Completed [facility] COVID-19 Vaccine (Brett) COVID-19 Vaccine (Brett) Unknown Completed [facility] FLUZONE HIGH DOSE OVER 65 FLUZONE HIGH DOSE OVER 65 Unknown Completed [facility] Prevnar 20 (PCV20) Prevnar 20 (PCV20) Unknown Completed [facility] Fluad (aIIV4) - SDS - 0.5mL Fluad (aIIV4) - SDS - 0.5mL Unknown Completed [facility] COVID-19 Vaccine (Brett) COVID-19 Vaccine (Brett) Unknown Completed [facility] FLUZONE HIGH DOSE OVER 65 FLUZONE HIGH DOSE OVER 65 Unknown Completed [facility] Prevnar 20 (PCV20) Prevnar 20 (PCV20) Unknown Completed [facility] Fluad (aIIV4) - SDS - 0.5mL Fluad (aIIV4) - SDS - 0.5mL Unknown Completed [facility] COVID-19 Vaccine (Brett) COVID-19 Vaccine (Brett) Unknown Completed [facility] FLUZONE HIGH DOSE OVER 65 FLUZONE HIGH DOSE OVER 65 Unknown Completed [facility] Prevnar 20 (PCV20) Prevnar 20 (PCV20) Unknown Completed [facility] Fluad (aIIV4) - SDS - 0.5mL Fluad (aIIV4) - SDS - 0.5mL Unknown Completed [facility] COVID-19 Vaccine (Brett) COVID-19 Vaccine (Brett) Unknown Completed [facility] FLUZONE HIGH DOSE OVER 65 FLUZONE HIGH DOSE OVER 65 Unknown Completed [facility] Prevnar 20 (PCV20) Prevnar 20 (PCV20) Unknown Completed [facility] Fluad (aIIV4) - SDS - 0.5mL Fluad (aIIV4) - SDS - 0.5mL Unknown Completed [facility] COVID-19 Vaccine (Brett) COVID-19 Vaccine (Brett) Unknown Completed [facility] FLUZONE HIGH DOSE OVER 65 FLUZONE HIGH DOSE OVER 65 Unknown Completed [facility] Prevnar 20 (PCV20) Prevnar 20 (PCV20) Unknown Completed [facility] Fluad (aIIV4) - SDS - 0.5mL Fluad (aIIV4) - SDS - 0.5mL Unknown Completed [facility] COVID-19 Vaccine (Brett) COVID-19 Vaccine (Brett) Unknown Completed [facility] FLUZONE HIGH DOSE OVER 65 FLUZONE HIGH DOSE OVER 65 Unknown Completed [facility] Prevnar 20 (PCV20) Prevnar 20 (PCV20) Unknown Completed [facility] Fluad (aIIV4) - SDS - 0.5mL Fluad (aIIV4) - SDS - 0.5mL Unknown Completed [facility] COVID-19 Vaccine (Brett) COVID-19 Vaccine (Brett) Unknown Completed [facility] FLUZONE HIGH DOSE OVER 65 FLUZONE HIGH DOSE OVER 65 Unknown Completed [facility] Prevnar 20 (PCV20) Prevnar 20 (PCV20) Unknown Completed [facility] Fluad (aIIV4) - SDS - 0.5mL Fluad (aIIV4) - SDS - 0.5mL Unknown Completed [facility] COVID-19 Vaccine (Brett) COVID-19 Vaccine (Brett) Unknown Completed [facility] FLUZONE HIGH DOSE OVER 65 FLUZONE HIGH DOSE OVER 65 Unknown Completed [facility] Prevnar 20 (PCV20) Prevnar 20 (PCV20) Unknown Completed [facility] Fluad (aIIV4) - SDS - 0.5mL Fluad (aIIV4) - SDS - 0.5mL Unknown Completed [facility] COVID-19 Vaccine (Brett) COVID-19 Vaccine (Brett) Unknown Completed [facility] FLUZONE HIGH DOSE OVER 65 FLUZONE HIGH DOSE OVER 65 Unknown Completed [facility] Prevnar 20 (PCV20) Prevnar 20 (PCV20) Unknown Completed [facility] Fluad (aIIV4) - SDS - 0.5mL Fluad (aIIV4) - SDS - 0.5mL Unknown Completed [facility] COVID-19 Vaccine (Brett) COVID-19 Vaccine (Brett) Unknown Completed [facility] FLUZONE HIGH DOSE OVER 65 FLUZONE HIGH DOSE OVER 65 Unknown Completed [facility] Vital Signs Vital Name Observation Time Observation Value Comments S ource height 2023-11-17 08:40:00 56 [in_i] Commo n [facility] weight 2023-11-17 08:40:00 105.4 [lb_av] Co mmon [facility] temperature 2023-11-17 08:40:00 98.0 [degF] Com mon [facility] bmi 2023-11-17 08:40:00 23.63 kg/m2 Comm on [facility] oximetry 2023-11-17 08:40:00 100 % Commo n [facility] respiratory rate 2023-11-17 08:40:00 16 /min [facility] blood pressure systolic 2023-11-17 08:40:00 148 mm[Hg[facility] diastolic 2023-11-17 08:40:00 72 mm[Hg] [facility] height 2023-08-25 10:00:00 56 [in_i] Commo n [facility] weight 2023-08-25 10:00:00 100.8 [lb_av] Co mmon [facility] temperature 2023-08-25 10:00:00 97.9 [degF] Com mon [facility] bmi 2023-08-25 10:00:00 22.6 kg/m2 Commo n [facility] oximetry 2023-08-25 10:00:00 98 % Commo n [facility] respiratory rate 2023-08-25 10:00:00 16 /min [facility] blood pressure systolic 2023-08-25 10:00:00 139 mm[Hg] [facility] blood pressure diastolic 2023-08-25 10:00:00 71 mm[Hg] [facility] height 2023-08-25 10:20:00 56 [in_i] Commo n [facility] weight 2023-08-25 10:20:00 100.8 [lb_av] Co mmon [facility] temperature 2023-08-25 10:20:00 97.9 [degF] Com mon [facility] bmi 2023-08-25 10:20:00 22.6 kg/m2 Commo n [facility] oximetry 2023-08-25 10:20:00 98 % Commo n [facility] respiratory rate 2023-08-25 10:20:00 16 /min [facility] blood pressure systolic 2023-08-25 10:20:00 139 mm[Hg] [facility] blood pressure diastolic 2023-08-25 10:20:00 71 mm[Hg] Common [facility] height 2023-07-31 13:20:00 56 [in_i] Commo n [facility] weight 2023-07-31 13:20:00 101.2 [lb_av] Co mmon [facility] temperature 2023-07-31 13:20:00 98.2 [degF] Com mon [facility] bmi 2023-07-31 13:20:00 22.69 kg/m2 Comm on [facility] oximetry 2023-07-31 13:20:00 96 % Commo n [facility] respiratory rate 2023-07-31 13:20:00 18 /min [facility] blood pressure systolic 2023-07-31 13:20:00 134 mm[Hg] [facility] blood pressure diastolic 2023-07-31 13:20:00 84 mm[Hg] Common [facility] height 2022-07-16 13:00:00 56 [in_i] Commo n [facility] weight 2022-07-16 13:00:00 97.8 [lb_av] Com [facility] temperature 2022-07-16 13:00:00 98.2 [degF] Com [facility] bmi 2022-07-16 13:00:00 21.92 kg/m2 Comm on [facility] oximetry 2022-07-16 13:00:00 100 % Commo n [facility] respiratory rate 2022-07-16 13:00:00 16 /min [facility] blood pressure systolic 2022-07-16 13:00:00 138 mm[Hg] Common [facility] blood pressure diastolic 2022-07-16 13:00:00 88 mm[Hg] [facility] Systolic blood pressure 2022-06-30 04:00:00 149 mm[Hg] [facility] Diastolic blood pressure 2022-06-30 04:00:00 61 mm[Hg] [facility] Heart rate 2022-06-30 04:00:00 92 /min [facility] Respiratory rate 2022-06-30 04:00:00 18 /min [facility] Oxygen saturation in Arterial blood by Pulse oximetry 2022-06-30 04:00:00 98 /min [facility] Body temperature 2022-06-30 01:07:00 38.22 Sravanthi [facility] Body height 2022-06-30 01:07:00 144.8 cm [facility] Body weight 2022-06-30 01:07:00 47.174 kg [facility] BMI 2022-06-30 01:07:00 22.51 kg/m2 [facility] height 2022-06-13 13[facility]00[facility]13 13:00:00 98.6 [lb_av] Com [facility] temperature 2022-06-13 13:00:00 97.2 [degF] Com [facility] bmi 2022-06-13 13:00:00 22.1 kg/m2 [facility] oximetry 2022-06-13 13:00:00 97 % [facility] respiratory rate 2022-06-13 13:00:00 16 /min [facility] blood pressure systolic 2022-06-13 13:00:00 136 mm[Hg] [facility] blood pressure diastolic 2022-06-13 13:00:00 69 mm[Hg] [facility] Systolic blood pressure 2022-05-30 19:32:00 140 mm[Hg] [facility] Diastolic blood pressure 2022-05-30 19:32:00 75 mm[Hg] [facility] Heart rate 2022-05-30 19:30:00 71 /min [facility] Body temperature 2022-05-30 19:30:00 37.06 [facility] Body height 2022-05-30 19:30:00 147.3 cm [facility] Body weight 2022-05-30 19:30:00 43.999 kg [facility] BMI 2022-05-30 19:30:00 20.27 kg/m2 [facility] Oxygen saturation in Arterial blood by Pulse oximetry 2022-05-30 19:30:00 100 /min [place] [facility] height 2022-05-15 13:00:00 57 [in_i] Commo n [facility] weight 2022-05-15 13:00:00 99.8 [lb_av] Com [facility] temperature 2022-05-15 13:00:00 98.4 [degF] Com [facility] bmi 2022-05-15 13:00:00 21.59 kg/m2 Comm on [facility] oximetry 2022-05-15 13:00:00 96 % Commo n [facility] respiratory rate 2022-05-15 13:00:00 16 /min [facility] blood pressure systolic 2022-05-15 13:00:00 164 mm[Hg] [facility] blood pressure diastolic 2022-05-15 13:00:00 76 mm[Hg] [facility] height 2022-01-22 15:40:00 57 [in_i] Commo n [facility] weight 2022-01-22 15:40:00 110 [lb_av] Comm on [facility] temperature 2022-01-22 15:40:00 97.2 [degF] Com [facility] bmi 2022-01-22 15:40:00 23.80 kg/m2 Comm on [facility] oximetry 2022-01-22 15:40:00 98 % Commo n [facility] blood pressure systolic 2022-01-22 15:40:00 138 mm[Hg] Common [facility] blood pressure diastolic 2022-01-22 15:40:00 74 mm[Hg] [facility] height 2022-01-22 16:00:00 57 [in_i] Commo n [facility] weight 2022-01-22 16:00:00 110 [lb_av] Comm on [facility] temperature 2022-01-22 16:00:00 97.2 [degF] Com mon [facility] bmi 2022-01-22 16:00:00 23.80 kg/m2 Comm on [facility] oximetry 2022-01-22 16:00:00 98 % Commo n [facility] blood pressure systolic 2022-01-22 16:00:00 138 mm[Hg] [facility] blood pressure diastolic 2022-01-22 16:00:00 74 mm[Hg] [facility] height 2021-10-16 13:40:00 57 [in_i] Commo n [facility] weight 2021-10-16 13:40:00 109.4 [lb_av] Co mmon [facility] temperature 2021-10-16 13:40:00 98.2 [degF] Com mon [facility] bmi 2021-10-16 13:40:00 23.67 kg/m2 Comm on [facility] oximetry 2021-10-16 13:40:00 99 % Commo n [facility] respiratory rate 2021-10-16 13:40:00 16 /min [facility] blood pressure systolic 2021-10-16 13:40:00 140 mm[Hg] [facility] blood pressure diastolic 2021-10-16 13:40:00 76 mm[Hg] [facility] height 2021-08-21 14:40:00 57 [in_i] Commo n [facility] weight 2021-08-21 14:40:00 112.4 [lb_av] Co mmon [facility] temperature 2021-08-21 14:40:00 97.0 [degF] Com mon [facility] bmi 2021-08-21 14:40:00 24.32 kg/m2 Comm on [facility] oximetry 2021-08-21 14:40:00 98 % Commo n [facility] respiratory rate 2021-08-21 14:40:00 16 /min [facility] height 2021-05-24 11:40:00 57 [in_i] Commo n [facility] weight 2021-05-24 11:40:00 106 [lb_av] Comm on [facility] temperature 2021-05-24 11:40:00 98.2 [degF] Com [facility] bmi 2021-05-24 11:40:00 22.94 kg/m2 Comm on [facility] oximetry 2021-05-24 11:40:00 97 % Commo n [facility] respiratory rate 2021-05-24 11:40:00 20 /min [facility] blood pressure systolic 2021-05-24 11:40:00 138 mm[Hg] [facility] blood pressure diastolic 2021-05-24 11:40:00 74 mm[Hg] [facility] Procedures Procedure Date / Time Performed Performing Clinician Source URINALYSIS 2022-06-30 03:06:00 Siobhan Pereira [facility] CT HEAD WO CONTRAST 2022-06-30 01:47:00 Siobhan Pereira [facility] LIPASE 2022-06-30 01:32:00 Siobhan Pereira [facility] TROPONIN I 2022-06-30 01:32:00 Siobhan Pereira [facility] COMP. METABOLIC PANEL (39807) 2022-06-30 01:32:[address] [facility] CBC WITH DIFF 2022-06-30 01:32:00 [facility] 2022-06-30 01:32:00 Stanley Pereira [facility] COVID-19 (ID NOW RAPID TESTING) 2022-06-30 01:32:00 Siobhan Pereira [facility] CONSENT/REFUSAL FOR DIAGNOSIS AND TREATMENT 2022-06-30 00:48:26 Doctor Unassigned, [place] [facility] Encounters Start Date/Time End Date/Time Encounter Type Admission Type Attending Clinicians Care Facility Care Department Encounter ID Source 2024-01-19 13:34:00 Outpatient Adonay Onesimo [facility] [id number] [facility] 2024-01-15 16:43:00 Outpatient Gloria Sims ST[facility] STLC [id number] [facility] 2023-08-28 09:25:00 Outpatient Gloria Sims ST[facility] STLC [id number] [facility] 2023-07-31 13:22:00 Outpatient Gloria Sims STLC STLC [id number] [facility] 2022-08-12 13:25:00 Outpatient Gloria Sims STLMLC STLC [id number] [facility] 2022-07-12 09:03:00 Outpatient Gloria Sims STLMLC STLC [id number] [facility] 2021-12-26 14:35:38 Outpatient Gloria Sims STLC STLC [id number] [facility] 2021-12-26 14:07:57 Outpatient Gloria Sims STLC STLC [id number] [facility] 2021-12-26 13:58:41 Outpatient CampbellGloria marcano STLC STLC [id number] [facility] 2021-12-26 13:26:23 Outpatient CampbellGloria marcano STLMLC STLMLC [id number] [facility] 2021-12-26 13:07:52 Outpatient CampbellGloria marcano STLMLC STLMLC [id number] [facility] 2021-12-26 12:46:22 Outpatient CampbellGloria marcano STLMLC STLMLC [id number] [facility] 2021-12-26 12:45:46 Outpatient CampbellGloria marcano STLMLC STLMLC [id number] [facility] 2021-12-26 12:43:16 Outpatient CampbellGloria marcano STLMLC STLMLC [id number] [facility] 2021-12-26 12:42:46 Outpatient CampbellGloria marcano STLMLC STLMLC [id number] [facility] 2021-12-26 12:41:53 Outpatient Gloria Sims STLMLC STLMLC [id number] [facility] 2021-12-26 12:41:21 Outpatient Gloria Sims STLMLC STLMLC [id number] [facility] 2021-12-26 12:25:33 Outpatient STLMLC STLMLC [id number] [facility] 2021-10-02 03:38:45 Outpatient DIVYA PIERSON [facility] OPH [id number] [facility] 2021-10-01 02:10:08 Outpatient DIVYA CAM JR [facility] [id number] [facility] 2021-09-30 21:11:03 Outpatient ANISA JACOB [facility] [id number] [facility] 2021-09-30 17:40:10 Emergency [facility] [id number] [facility] 2023-12-02 00:00:00 2023-12-02 00:00:00 (TEL) STLMLC STLMLC [id number] [facility] 2023-11-17 00:00:00 2023-11-17 00:00:00 OFFICE VISIT ESTAB PT LEVEL 3 STLMLC STLMLC [id number] [facility] 2023-10-30 00:00:00 2023-10-30 00:00:00 (TEL) STLMLC STLMLC [id number] [facility] 2023-08-27 00:00:00 2023-08-27 00:00:00 (TEL) STLMLC STLMLC [id number] [facility] 2023-08-26 00:00:00 2023-08-26 00:00:00 (TEL) STLMLC STLMLC [id number] [facility] 2023-08-25 00:00:00 2023-08-25 00:00:00 OFFICE VISIT ESTAB PT LEVEL 3 STLMLC STLMLC [id number] [facility] 2023-08-25 00:00:00 2023-08-25 00:00:00 (TEL) STLMLC STLMLC [id number] [facility] 2023-08-25 00:00:00 2023-08-25 00:00:00 SUB ANNUAL [facility] WELLNESS VISIT STLMLC STLMLC [id number] [facility] 2023-08-07 00:00:00 2023-08-07 00:00:00 (TEL) STLMLC STLMLC [id number] [facility] 2023-07-31 00:00:00 2023-07-31 00:00:00 OFFICE VISIT ESTAB PT LEVEL 4 STLMLC STLMLC [id number] [facility] 2023-07-29 00:00:00 2023-07-29 00:00:00 (TEL) STLMLC STLMLC [id number] [facility] 2023-01-02 13:15:00 2023-01-02 13:15:00 Outpatient TJ FARNK [facility] [id number] [facility] 2022-12-24 09:00:00 2022-12-24 09:00:00 Outpatient R ANISA JACOB [facility] [id number] [facility] 2022-07-16 00:00:00 2022-07-16 00:00:00 OFFICE VISIT ESTAB PT LEVEL 4 STLMLC STLMLC [id number] [facility] 2022-07-04 00:00:00 2022-07-04 00:00:00 (TEL) STLMLC STLMLC [id number] [facility] 2022-06-29 19:58:00 2022-06-29 23:22:00 Emergency X ABADMERRICKSIOBHAN [facility] ERT [id number] [facility] 2022-06-29 19:58:00 2022-06-29 23:22:00 Emergency Rachelsocratesmerrick Charlesarnaldo S [facility] .2.840.114 350.1.13.10 4.2.7.2.686 [id number] [facility] 2022-06-13 00:00:00 2022-06-13 00:00:00 OFFICE VISIT ESTAB PT LEVEL 4 STLMLC STLMLC [id number] [facility] 2022-05-30 15:00:00 2022-05-30 15:30:00 Office Visit [place] R [facility] .2.840.114 350.1.13.10 4.2.7.2.686 [id number] [facility] 2022-05-30 15:00:00 2022-05-30 15:00:00 Outpatient R ANDERSON WOODS [facility] [id number] [facility] 2022-05-30 13:01:05 2022-05-30 13:00:00 Outpatient R ANDERSON WOODS [facility] [id number] [facility] 2022-05-15 00:00:00 2022-05-15 00:00:00 OFFICE VISIT ESTAB PT LEVEL 4 STLMLC STLMLC [id number] [facility] 2022-05-09 16:00:00 2022-05-09 16:47:57 Outpatient R KATINA WOODSRIQUE [facility] [id number] [facility] 2022-05-09 16:00:00 2022-05-09 16:47:57 Office [address] [place] Woods [facility] 1.840.114 350.1.13.10 4.2.7.2.686 [id number] [facility] 2022-04-28 23:27:00 2022-04-29 03:35:00 Emergency X Jonnie ARRIAGA [facility] ERT [id number] [facility] 2022-02-05 14:00:00 2022-02-05 14:00:00 Outpatient R [facility] [id number] [facility] 2022-01-25 00:00:00 2022-01-25 00:00:00 (TEL) STLMLC STLC [id number] [facility] 2022-01-22 00:00:00 2022-01-22 00:00:00 OFFICE VISIT ESTAB PT LEVEL 4 STLMLC STLMLC [id number] [facility] 2022-01-22 00:00:00 2022-01-22 00:00:00 SUB ANNUAL [facility] WELLNESS VISIT STLMLC STLC [id number] [facility] 2022-01-10 00:00:00 2022-01-10 00:00:00 Outpatient R [facility] [id number] [facility] 2021-12-08 00:00:00 2021-12-08 00:00:00 Anisa Contreras [facility] 1..840.114 350.1.13.10 4.2.7.2.686 [id number] [facility] 2021-10-16 00:00:00 2021-10-16 00:00:00 OFFICE VISIT ESTAB PT LEVEL 4 STLMLC STLMLC [id number] [facility] 2021-10-11 06:36:00 2021-10-11 08:50:00 Hospital Encounter JordonDivya kwong [facility] 1.840.114 350.1.13.10 4.2.7.2.686 [id number] [facility] 2021-10-11 06:36:00 2021-10-11 08:50:00 Outpatient R JORDON DIVYA [facility] OPH [id number] [facility] 2021-10-11 08:00:00 2021-10-11 08:34:00 Surgery Divya Ruvalcaba [facility] 1.840.114 350.1.13.10 4.2.7.2.686 [id number] [facility] 2021-10-09 11:30:00 2021-10-09 11:30:00 Outpatient R JORDON DIVYA [facility] [id number] [facility] 2021-10-08 00:00:00 2021-10-08 00:00:00 Orders Only Doctor Unassigned, [place] [facility] 1.840.114 350.1.13.10 4.2.7.2.686 [id number] [facility] 2021-09-13 07:19:00 2021-09-13 10:06:00 Hospital Encounter Jordon Divya Martin [facility] 1.0.114 350.1.13.10 4.2.7.2.686 [id number] [facility] 2021-09-13 09:14:00 2021-09-13 09:51:00 Surgery Divya Ruvalcaba [facility] 1.2840.114 350.1.13.10 4.2.7.2.686 [id number] [facility] 2021-09-11 15:00:00 2021-09-11 15:00:00 Outpatient Debra GEOPDIVYA [facility] [id number] [facility] 2021-09-11 13:57:39 2021-09-11 14:12:39 Laboratory Only Only, Adc Test Divya Ruvalcaba [facility] 1..114 350.1.13.10 4.2.7.2.686 [id number] [facility] 2021-09-10 00:00:00 2021-09-10 00:00:00 Orders Only Doctor Unassigned, [place] [facility] 1.114 350.1.13.10 4.2.7.2.686 [id number] [facility] 2021-09-04 16:12:51 2021-09-04 16:27:51 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 1..114 350.1.13.10 4.2.7.2.686 [id number] [facility] 2021-09-04 16:15:00 2021-09-04 16:15:00 Outpatient DIVYA PIERSON [facility] [id number] [facility] 2021-08-21 00:00:00 2021-08-21 00:00:00 OFFICE VISIT ESTAB PT LEVEL 4 STLMLC STLMLC [id number] [facility] 2021-07-12 00:00:00 2021-07-12 00:00:00 [facility] 1.114 350.1.13.10 4.2.7.2.686 [id number] [facility] 2021-07-10 13:10:23 2021-07-10 13:40:23 Office Visit [place] Woods [facility] 1..114 350.1.13.10 4.2.7.2.686 [id number] [facility] 2021-07-10 13:00:00 2021-07-10 13:00:00 Outpatient R ANDERSON WOODS [facility] [id number] [facility] 2021-06-19 11:57:23 2021-06-19 13:30:49 Office Visit Anderson Woods [facility] 1..114 350.1.13.10 4.2.7.2.686 [id number] [facility] 2021-06-19 00:00:00 2021-06-19 00:00:00 Outpatient R ANDERSON WOODS [facility] [id number] [facility] 2021-06-13 00:00:00 2021-06-13 00:00:00 Case Management Anderson Woods [facility] 1..114 350.1.13.10 4.2.7.2.686 [id number] [facility] 2021-06-12 00:00:00 2021-06-12 00:00:00 Outpatient R ANDERSON WOODS [facility] [id number] [facility] 2021-06-05 00:00:00 2021-06-05 00:00:00 Orders Only Doctor Unassigned, [place] [facility] 1.114 350.1.13.10 4.2.7.2.686 [id number] [facility] 2021-06-04 00:00:00 2021-06-04 00:00:00 Case Management Anisa Jacob [facility] 1.114 350.1.13.10 4.2.7.2.686 [id number] [facility] 2021-05-30 10:39:57 2021-05-30 11:52:22 Office Visit Anderson Woods [facility] 1.2.840.114 350.1.13.10 4.2.7.2.686 [id number] [facility] 2021-05-30 11:00:00 2021-05-30 11:00:00 Outpatient R ANDERSON WOODS [facility] [id number] [facility] 2021-05-29 00:00:00 2021-05-29 00:00:00 Telephone Divya Cam [facility] 1.2.840.114 350.1.13.10 4.2.7.2.686 [id number] [facility] 2021-05-28 07:28:00 2021-05-28 16:00:00 Hospital Encounter [facility] 1.2.840.114 350.1.13.10 4.2.7.2.686 [id number] [facility] 2021-05-28 10:27:00 2021-05-28 12:52:00 Surgery [facility] 1.2.840.114 350.1.13.10 4.2.7.2.686 [id number] [facility] 2021-05-28 00:00:00 2021-05-28 00:00:00 Orders Only Doctor Unassigned, [place] [facility] 1.2.840.114 350.1.13.10 4.2.7.2.686 [id number] [facility] 2021-05-24 00:00:00 2021-05-24 00:00:00 OFFICE VISIT ESTAB PT LEVEL 4 STLMLC STLMLC [id number] [facility] 2021-05-17 14:18:00 2021-05-17 19:15:00 Hospital Encounter Anisa Jacob 1.2.840.1 60087.1.1 3.104.2.7 .3.034094 .8 [id number] [facility] 2021-05-17 18:49:43 2021-05-17 18:49:43 Anesthesia Event Patricia Martin Yesenia 1.2.840.1 83156.1.1 3.104.2.7 .3.498582 .8 [id number] [facility] 2021-05-17 00:00:00 2021-05-17 00:00:00 Orders Only Doctor Unassigned, [place] [facility] 1.2.840.114 350.1.13.10 4.2.7.2.686 [id number] [facility] 2021-05-14 00:00:00 2021-05-14 00:00:00 Travel 1.2.840.1 16173.1.1 3.104.2.7 .3.452585 .8 1.2.840.114 350.1.13.10 4.2.7.3.698 [id number] [facility] 2021-04-26 00:00:00 2021-04-26 00:00:00 Outpatient STLMLC STLC [id number] [facility] 2021-04-24 08:26:32 2021-04-24 09:33:54 Office Visit Nidia Anisa 1.2.840.1 56766.1.1 3.104.2.7 .3.726052 .8 [id number] [facility] 2021-04-24 08:30:00 2021-04-24 08:30:00 Outpatient R ANISA JACOB [facility] [id number] [facility] 2021-04-24 00:00:00 2021-04-24 00:00:00 Travel 1.2.840.1 [id number] 3.104.2.7 .3.082826 .8 1.2.840.114 350.1.13.10 4.2.7.3.698 [id number] [facility] 2021-04-18 00:00:00 2021-04-18 00:00:00 Orders Only Doctor Unassigned, [place] 1.2.840.1 82199.1.1 3.104.2.7 .3.682774 .8 [id number] [facility] 2021-04-09 00:00:00 2021-04-09 00:00:00 Transition of Care JeysonMatt rodas 1.2.840.1 29001.1.1 3.104.2.7 .3.412224 .8 [id number] [facility] 2021-04-05 22:55:00 2021-04-06 19:15:00 Outpatient X ANISA JACOB [facility] [id number] [facility] 2021-04-05 22:55:00 2021-04-06 19:15:00 Emergency TriplettSun S Anisa Jacob 1.2.840.1 72803.1.1 3.104.2.7 .3.884431 .8 [id number] [facility] 2021-04-05 00:00:00 2021-04-05 00:00:00 Travel 1.2.840.1 16495.1.1 3.104.2.7 .3.001877 .8 1.2.840.114 350.1.13.10 4.2.7.3.698 [id number] [facility] 2021-04-03 10:15:00 2021-04-03 10:15:00 Outpatient R ANISA JACOB [facility] [id number] [facility] 2021-03-30 08:57:04 2021-03-30 10:41:55 Office Visit Anisa Jacob 1.2.840.1 88809.1.1 3.104.2.7 .3.047194 .8 [id number] [facility] 2021-03-30 09:00:00 2021-03-30 09:00:00 Outpatient R ANISA JACOB [facility] [id number] [facility] 2021-03-30 00:00:00 2021-03-30 00:00:00 Orders Only Doctor Unassigned, [place] 1.2.840.1 44446.1.1 3.104.2.7 .3.652083 .8 [id number] [facility] 2021-03-30 00:00:00 2021-03-30 00:00:00 Travel 1.2.840.1 00127.1.1 3.104.2.7 .3.375612 .8 1.2.840.114 350.1.13.10 4.2.7.3.698 084.8 [id number] [facility] 2021-03-15 00:00:00 2021-03-15 00:00:00 Orders Only Doctor Unassigned, [place] [facility] 1.2.840.114 350.1.13.10 4.2.7.2.686 [id number] 2021-03-15 00:00:00 2021-03-15 00:00:00 Orders Only Doctor Unassigned, [place] 1.2.840.1 35178.1.1 3.104.2.7 .3.672695 .8 [id number] [facility] 2021-02-26 00:00:00 2021-02-26 00:00:00 Outpatient STLMLC STLMLC [id number] [facility] 2021-02-19 00:00:00 2021-02-19 00:00:00 Outpatient STLMLC STLMLC [id number] [facility] 2021-02-19 00:00:00 2021-02-19 00:00:00 Orders Only Doctor Unassigned, [place] [facility] [id number] [facility] 2021-02-16 00:00:00 2021-02-16 00:00:00 Outpatient STLMLC STLMLC [id number] [facility] 2021-02-15 00:00:00 2021-02-15 00:00:00 Outpatient [facility]LMLC STLMLC [id number] [facility] 2019-01-21 10:45:00 2019-01-21 10:45:[address] [facility] [id number] [facility] 2019-01-14 13:44:00 2019-01-14 13:44:[address] [facility] [id number] [facility] 2018-08-07 11:01:00 2018-08-07 11:01:[address] [facility] [id number] [facility] 2018-08-06 15:30:00 2018-08-06 15:30:[address] [facility] [facility] [id number] [facility] 2018-07-13 23:04:00 2018-07-13 23:04:[address] [facility] [id number] [facility] 2018-07-09 10:00:00 2018-07-09 10:00:[address] [facility] [id number] [facility] 2018-04-09 21:34:00 2018-04-09 21:34:[address] [facility] [place] [facility] [id number] [facility] 2018-04-09 13:15:00 2018-04-09 13:15:[address] [facility] [facility] [id number] [facility] Results Test Description Test Time Test Comments Results Result Co mments Source CBC W/AUTO [id number] 00:00:00* Test Item Value Reference Range Interpretation Comme nts NUCLEATED RBCS (test code = 81411-0) 0.0 /100 WBC'S See_Comment [Automated messa ge] The system which generated this result transmitted reference range: 0.0 /100 WBC'S. The reference range was not used to interpret this result as normal/abnormal. ABSOLUTE EOSINOPHILS (test code = 66137-0) 0.12 K/UL See_Comment [Automated messa ge] The system which generated this result transmitted reference range: 0.00-0.50 K/UL. The reference range was not used to interpret this result as normal/abnormal. ABSOLUTE LYMPHOCYTES (test code = 00769-6) 2.17 K/UL See_Comment [Automated messa ge] The system which generated this result transmitted reference range: 1.00-4.00 K/UL. The reference range was not used to interpret this result as normal/abnormal. ABSOLUTE MONOCYTES (test code = 91989-0) 0.48 K/UL See_Comment [Automated messa ge] The system which generated this result transmitted reference range: 0.20-1.00 K/UL. The reference range was not used to interpret this result as normal/abnormal. ABSOLUTE NEUTROPHILS (test code = 69182-6) 5.88 K/UL See_Comment [Automated messa ge] The system which generated this result transmitted reference range: 1.50-7.50 K/UL. The reference range was not used to interpret this result as normal/abnormal. BASOPHILS (test code = 93435-3) 0.6 % EOSINOPHILS (test code = 65078-9) 1.4 % HEMATOCRIT (test code = 05178-7) 35.7 % See_Comment [Automated messa ge] The [...] result as normal/abnormal. LYMPHOCYTES (test code = 04997-7) 24.9 % MCH (test code = 97393-6) 29.8 PG See_Comment [Automated messa ge] The system which generated this result transmitted reference range: 25.0-33.0 PG. The reference range was not used to interpret this result as normal/abnormal. MCHC (test code = 58908-4) 34.2 G/DL See_Comment [Automated messa ge] The system which generated this result transmitted reference range: 31.0-36.0 G/DL. The reference range was not used to interpret this result as normal/abnormal. MCV (test code = 28885-5) 87.1 fL See_Comment [Automated messa ge] The system which generated this result transmitted reference range: 80.0-99.0 fL. The reference range was not used to interpret this result as normal/abnormal. MONOCYTES (test code = 97078-3) 5.5 % NEUTROPHILS (test code = 22031-0) 67.4 % PLATELET COUNT (test code = 75097-0) 274 K/UL See_Comment [Automated messa ge] The system which generated this result transmitted reference range: 130-400 K/UL. The reference range was not used to interpret this result as normal/abnormal. RBC (test code = 33804-2) 4.10 M/UL See_Comment [Automated messa ge] The system which generated this result transmitted reference range: 3.80-5.40 M/UL. The reference range was not used to interpret this result as normal/abnormal. RDW (test code = 64542-5) 12.9 % See_Comment [Automated messa ge] The system which generated this result transmitted reference range: 11.5-15.0 %. The reference range was not used to interpret this result as normal/abnormal. WBC (test code = 38910-8) 8.7 K/UL See_Comment [Automated messa ge] The system which generated this result transmitted reference range: 3.5-11.0 K/UL. The reference range was not used to interpret this result as normal/abnormal. IRON, [id number] 00:00:00* Test Item Value Reference Range Interpretation Comme nts IRON, SERUM (test code = 2498-4) 85 UG/DL See_Comment [Automated messa ge] The system which generated this result transmitted reference range: 37-145 UG/DL. The reference range was not used to interpret this result as normal/abnormal. HEMOGLOBIN [id number] 00:00:00* Test Item Value Reference Range Interpretation Comme [facility] HEMOGLOBIN A1c (test code = 4548-4) 12.7 % See_Comment H [Automated messa ge] The system which generated this result transmitted reference range: 4.2-5.6 %. The reference range was not used to interpret this result as normal/abnormal. LIPID [id number] 00:00:00* Test Item Value Reference Range Interpretation Comme nts CALC LDL CHOL (test code = 95325-3) 124 MG/DL See_Comment H [Automated messa ge] [...] normal/abnormal. RISK RATIO LDL/HDL (test code = 24839-9) 2.64 RATIO See_Comment [Automated message] The system [...] this result as normal/abnormal. ALBUMIN/CREATININE RATIO, RANDOM [id number] 00:00:00* Test Item Value Reference Range Interpretation Comme nts ALBUMIN, URINE, RANDOM (test code = 41994-8) 13.5 MG/DL NOT ESTAB MG/DL CALC ALBUMIN/CREAT, RND (test code = 60256-2) 116 MG/G See_Comment H [Automated messa ge] The system which generated this result transmitted reference range: <30 MG/G. The reference range was not used to interpret this result as normal/abnormal. CREATININE, URINE, CONC. (test code = 2161-8) 116.5 MG/DL NOT ESTAB MG/DL COMPREHENSIVE METABOLIC [id number] 00:00:00* Test Item Value Reference Range Interpretation [...] result as normal/abnormal. CALCIUM (test code = 90962-5) 9.7 MG/DL See_Comment [Automated messa ge] The [...] as normal/abnormal. CALC GLOBULIN (test code = 50506-6) 3.2 G/DL See_Comment [Automated messa ge] The [...] normal/abnormal. eGFR (2020 CKD-EPI) (test code = 66820-3) 66 ML/MIN/1.73 See_Comment [Automated messa ge] The [...] to interpret this result as normal/abnormal. HEMOGLOBIN [id number] 00:00:00* Test Item Value Reference Range Interpretation Comme nts A1C (test code = 4548-4) 14.0 HEMOGLOBIN [id number] 00:00:00* Test Item Value Reference Range Interpretation Comme nts A1C (test code = 4548-4) 10.8 HEMOGLOBIN [id number] 00:00:00* Test Item Value Reference Range Interpretation Comme nts A1C (test code = 4548-4) 8.2% HEMOGLOBIN [id number] 00:00:00* Test Item Value Reference Range Interpretation Comme nts A1C (test code = 4548-4) 8.6 DEXA, BONE DENSITY AXIAL SKELEDEXA, BONE DENSITY AXIAL PGCIZ4C SCR TANYA BILAT W/CAD3D SCR TANYA BILAT W/CAD
[2024-04-29] MEDS ORDERED: NA CHLORIDE 0.9% 1,000 ML ONE (08:01)
[2024-04-29] MEDS ORDERED: ONDANSETRON 4 MG/2 ML VIAL ONE (08:01)
[2024-04-29 08:37] LABS: Absolute Lymphocytes (CBC) 0.7 K/uL (0.7-4.9); Absolute Monocytes 1.1 K/uL (0.1-1.3); Absolute Neutrophil 7.9 K/uL (1.8-8.0); Basophils % 0.3 % (0-1.3); Eosinophils % 0.2 % (0-4.4); Hematocrit 28.6 % (36.0-45.0); Hemoglobin 9.7 g/dL (12.0-15.0); Lymphocytes % 7.3 % (15.3-44.8); MCH 29.3 pg (27.0-35.0); MCHC 33.9 g/dL (32.0-36.0); MCV 86.7 fL (80-100); MPV 8.5 fL (7.6-11.3); Monocytes % 10.9 % (3.3-12.3); Neutrophils % 81.3 % (41.7-73.7); Platelets 197 thou/uL (152-406); Red Cell Distribution Width 13.8 % (12.1-15.2)
--- NOTE | 2024-04-29 08:49 | RAD REPORT ---
EXAM DESCRIPTION: RADChest Single View04/29/2024 8:42 am CLINICAL HISTORY: weakness COMPARISON: Chest Single View dated 01/07/2024; Chest Single View dated 05/12/2019; Chest Pa And Lat (2 Views) dated 04/24/2019; Chest Single View dated 11/27/2016 TECHNIQUE: Portable AP view of the chest. FINDINGS: The lungs are clear. No pneumothorax or effusion. The cardiomediastinal contours are unre markable. IMPRESSION: No acute cardiopulmonary process.
[2024-04-29 08:51] LABS: Sqamous Epithelial <5 /HPF (None Seen); Transitional Epithelial <5 /HPF (None Seen); Urine Bacteria >50 /HPF (<20); Urine Bilirubin NEGATIVE (Negative); Urine Blood Trace (Negative); Urine Clarity Extremely Turbid (Clear); Urine Color Yellow (Yellow); Urine Culture Reflex Order REFLEXED; Urine Glucose 3+ (Negative); Urine Ketones 1+ (Negative); Urine Micro Reflex YN NO BILL MICROSCOPIC; Urine Mucus 3+ /HPF (None Seen); Urine Nitrite NEGATIVE (Negative); Urine Protein 3+ (Negative); Urine RBC 21-50 /HPF (None Seen); Urine Urobilinogen Normal (Normal); Urine WBC >50 /HPF (<5); Urine WBC Clump Many /HPF (None Seen); Urine pH 5.5 (5.0-7.0)
[2024-04-29 08:53] LABS: SARS-CoV-2 Antigen CONTROL BLUE LINE VIS/BG OK
[2024-04-29 08:54] LABS: SARS-CoV-2 Antigen Rapid Res Positive (Negative)
[2024-04-29 08:55] LABS: ALT/SGPT 18 U/L (13-56); AST/SGOT 18 U/L (15-37); Albumin 3.2 g/dL (3.4-5.0); Albumin/Globulin Ratio 0.7 (1.1-1.8); Alkaline Phosphatase 66 U/L (45-117); BUN Blood Urea Nitrogen 24 mg/dL (7-18); Bicarbonate 26 mEq/L (21-32); Bilirubin Total 0.9 mg/dL (0.2-1.0); Globulin 4.4 g/dL (2.3-3.5); Glomerular Filtration Rate 42 ml/min (=/>90); Glucose Level 312 mg/dL (74-106); Magnesium 1.9 mg/dL (1.6-2.4); Protein, Total 7.6 g/dL (6.4-8.2); Sodium Level 133 mEq/L (136-145); Troponin High Sensitivity 6.5 pg/mL (<58.9)
[2024-04-29 08:56] LABS: Bilirubin Direct < 0.2 mg/dL (0-0.2); Bilirubin Indirect, Calculated 0.7 mg/dL (0.2-0.8)
--- NOTE | 2024-04-29 09:29 | EDPHYS ---
Physician Documentation [facility] Name: Myriam Bryant Age: 68 yrs Sex: Female : 1955 Arrival Date: 04/29/2024 Time: 07:31 Bed 19 Private MD: ED Physician Jose Ambriz HPI: 04/29 08:10 This 68 yrs old Female presents to ER via Ambulatory with complaints of rt Doesn't Feel Right, Numbness Of Arm, Cough. 08:10 Patient presents to the ED with complaints. Patient states over the past 3 days, she rt has had generalized weakness. She reports numbness to both of the arms, stating that they are in the last 3 digits on both hands. Denies other numbness, weakness. Reports generalized weakness, some states that she was sweating earlier today, was very fatigued. Reports nausea. States that she feels things Dr. Pederson bowel movement. Denies other acute complaints, symptoms are moderate in severity, no other aggravating or alleviating. Historical: - Allergies: 07:42 No Known Allergies; vc1 - PMHx: 07:42 Arthritis; Diabetes - NIDDM; Hyperlipidemia; Hypertensive disorder; vc1 - Immunization history:: Adult Immunizations up to date. - Infectious Disease History:: Denies. - Social history:: Smoking status: Patient denies any tobacco usage or history of. ROS: 08:10 Cardiovascular: Negative for chest pain, palpitations, and edema, MS/Extremity: rt Negative for injury and deformity, Skin: Negative for injury, rash, and discoloration, 08:10 Constitutional: Positive for fatigue, malaise, 08:10 Respiratory: 08:10 Abdomen/GI: Positive for nausea, Negative for abdominal pain, diarrhea, 08:10 Neuro: Positive for headache, Negative for loss of consciousness, Exam: 08:10 Constitutional: This is a well developed, well nourished patient who is awake, alert, rt and in no acute distress. Head/Face: Normocephalic, atraumatic. Chest/axilla: Normal chest wall appearance and motion. Nontender with no deformity. No lesions are appreciated. Cardiovascular: Regular rate and rhythm with a normal S1 and S2. No gallops, murmurs, or rubs. Normal PMI, no JVD. No pulse deficits. Respiratory: Lungs have equal breath sounds bilaterally, clear to auscultation and percussion. No rales, rhonchi or wheezes noted. No increased work of breathing, no retractions or nasal flaring. Abdomen/GI: Soft, non-tender, with normal bowel sounds. No distension or tympany. No guarding or rebound. No evidence of tenderness throughout. Skin: Warm, dry with normal turgor. Normal color with no rashes, no lesions, and no evidence of cellulitis. MS/ Extremity: Pulses equal, no cyanosis. Neurovascular intact. Full, normal range of motion. Neuro: Awake and alert, GCS 15, oriented to person, place, time, and situation. Cranial nerves II-XII grossly intact. Motor strength 5/5 in all extremities. Sensory grossly intact. Cerebellar exam normal. Normal gait. 08:33 ECG was reviewed by the Attending Physician. rt Vital Signs: 07:42 BP 147 / 64; Pulse 89; Resp 16; Temp 97.1; Pulse Ox 98% ; vc1 08:24 BP 173 / 62; Pulse 84; Resp 18; Temp 98.6(O); Pulse Ox 100% on R/A; Weight 64.41 kg; ld1 Height 5 ft. 2 in. ; Pain 0/10; 09:27 BP 148 / 61; Pulse 82; Resp 16; Pulse Ox 100% on R/A; nj1 09:47 BP 139 / 57; Pulse 82; Resp 12; Temp 98.5(O); Pulse Ox 100% on R/A; nj1 08:24 Body Mass Index 25.97 (64.41 kg, 157.48 cm) ld1 08:24 Pain Scale: Adult ld1 MDM: 07:45 Patient medically screened. rt 09:30 Differential diagnosis: Flu, COVID, UTI, dehydration. Data reviewed: vital signs, rt nurses notes. Consideration of Admission/Observation Escalation of care including admission/observation considered. Patient with no SIRS indicators. Patient with slightly worsening creatinine compared to baseline, not meeting criteria for SOPHIA, this was treated with IV fluids. Patient is otherwise unremarkable workup, noted to be positive for COVID, has UTI. No indications for admission at this time, will treat as an outpatient.. I considered the following discharge prescriptions or medication management in the emergency department Medications were administered in the Emergency Department. See MAR. Independent interpretation of the following test(s) in the Emergency Department X-Ray: My interpretation is No consolidation seen on my interpretation of x-ray images. Care significantly affected by the following chronic conditions: Diabetes, Hypertension. Counseling: I had a detailed discussion with the patient and/or guardian regarding the historical points, exam findings, and any diagnostic results supporting the discharge/admit diagnosis, lab results, radiology results, the need for outpatient follow up, to return to the emergency department if symptoms worsen or persist or if there are any questions or concerns that arise at home. Response to treatment: the patient's symptoms have mildly improved after treatment. 04/29 07:53 Order name: Basic Metabolic Panel; Complete Time: 09: rt 04/29 07:53 Order name: CBC with Diff; Complete Time: : rt 04/29 07:53 Order name: LFT's; Complete Time: 09: rt 04/29 07:53 Order name: Magnesium; Complete Time: 09: rt 04/29 07:53 Order name: Troponin HS; Complete Time: 09: rt 04/29 07:53 Order name: UAM; Complete Time: 09: rt 04/29 07:53 Order name: Influenza Screen (a \T\ B); Complete Time: 09: rt 04/29 07:53 Order name: SARS RAPID; Complete Time: 09: rt 04/29 09:00 Order name: Urine Culture EDGA 04/29 07:53 Order name: XRAY Chest (1 view); Complete Time: 09:06 rt 04/29 07:53 Order name: EKG; Complete Time: 07:54 rt 04/29 07:53 Order name: Cardiac monitoring; Complete Time: 08:24 rt 04/29 07:53 Order name: EKG - Nurse/Tech; Complete Time: 08:24 rt 04/29 07:53 Order name: IV Saline Lock; Complete Time: 08:24 rt 04/29 07:53 Order name: Labs collected and sent; Complete Time: 08:24 rt 04/29 07:53 Order name: O2 Per Protocol; Complete Time: 07:56 rt 04/29 07:53 Order name: O2 Sat Monitoring; Complete Time: 07:56 rt EC:33 Rate is 82 beats/min. Rhythm is regular, Normal Sinus Rhythm with No ectopy. QRS [place] rt is Normal. [place] interval is normal. QRS interval is normal. QT interval is normal. No Q waves. Administered Medications: 08:24 Drug: NS 0.9% IV 1000 ml IV at 1 bolus Per protocol; 1000 mL bolus Route: IV; Rate: 1 ld1 bolus; Site: right antecubital; 09:48 Follow up: Response: No adverse reaction; IV Status: Completed infusion; IV Intake: nj1 1000ml 08:24 Drug: Ondansetron IVP 4 mg IVP once; over 2 minutes Route: IVP; Site: right antecubital;ld1 09:47 Follow up: Response: No adverse reaction nj1 Disposition Summary: 04/29/24 09:29 Discharge Ordered Notes: Location: Home rt Problem: new rt Symptoms: are unchanged rt Condition: Stable rt Diagnosis - UTI/ Urinary tract infection, site not specified rt - COVID-19 rt Followup: rt - With: Private Physician - When: 2 - 3 days - Reason: Followup: rt - With: Emergency Department - When: As needed - Reason: Worsening of condition Discharge Instructions: - Discharge Summary Sheet rt - Urinary Tract Infection, Adult rt - COVID-19 rt Forms: - Medication Reconciliation Form rt - Antibiotic Education rt - Prescription Opioid Use rt - Patient Portal Instructions rt - Leadership Thank You Letter rt Prescriptions: - Paxlovid 150-100 mg Oral Tablet, Dose Pack - take 1 dose pack ORAL route per package directions; 1 Each; Refills: 0, Product rt Selection Permitted - cefpodoxime 200 mg Oral tablet - take 1 tablet ORAL route every 12 hours with food; 14 tablet; Refills: 0, rt Product Selection Permitted Signatures: Dispatcher [employer] EDTamra Hall RN RN ld1 Katerine Pat RN RN vc1 Jose Ambriz MD MD rt Shefali George RN nj1 Corrections: (The following items were deleted from the chart) 07:54 07:54 Chest Single View+RAD.RAD.BRZ ordered. EDMS EDMS
--- NOTE | 2024-04-29 09:29 | ER ---
Nurse's Notes [facility] Name: Myriam Bryant Age: 68 yrs Sex: Female : 1955 Arrival Date: 04/29/2024 Time: 07:31 Bed 19 Private MD: Diagnosis: UTI/ Urinary tract infection, site not specified;COVID-19 Presentation: 04/29 07:42 Chief complaint: Patient's son or daughter states: 3 DAYS GEN WEAKNESS, MALAISE AND vc1 LOSS OF APPETITE. Coronavirus screen: At this time, the client does not indicate any symptoms associated with coronavirus-19. Ebola Screen: No symptoms or risks identified at this time. Initial Sepsis Screen: Does the patient meet any 2 criteria? No. Patient's initial sepsis screen is negative. Does the patient have a suspected source of infection? No. Patient's initial sepsis screen is negative. Risk Assessment: Do you want to hurt yourself or someone else? Patient reports no desire to harm self or others. Onset of symptoms is unknown. 07:42 Method Of Arrival: Ambulatory vc1 07:42 Acuity: VALDEMAR 3 vc1 Triage Assessment: 07:42 General: Appears distressed, Behavior is cooperative, appropriate for age, anxious. vc1 Pain: Complains of pain in head. EENT: No deficits noted. Neuro: Level of Consciousness is awake, alert, obeys commands, Oriented to Appropriate for age. Cardiovascular: Rhythm is sinus rhythm. Respiratory: No deficits noted. GI: No signs and/or symptoms were reported involving the gastrointestinal system. : No signs and/or symptoms were reported regarding the genitourinary system. Derm: No deficits noted. Musculoskeletal: No deficits noted. Historical: - Allergies: 07:42 No Known Allergies; vc1 - PMHx: 07:42 Arthritis; Diabetes - NIDDM; Hyperlipidemia; Hypertensive disorder; vc1 - Immunization history:: Adult Immunizations up to date. - Infectious Disease History:: Denies. - Social history:: Smoking status: Patient denies any tobacco usage or history of. Screenin:24 [facility] ED Fall Risk Assessment (Adult) History of falling in the last 3 months, ld1 including since admission No falls in past 3 months (0 pts). Abuse screen: Denies threats or abuse. Denies injuries from another. Nutritional screening: No deficits noted. Tuberculosis screening: No symptoms or risk factors identified. Assessment: 08:24 General: Appears in no apparent distress. comfortable, Behavior is calm, cooperative, ld1 appropriate for age. Pain: Denies pain. Neuro: Level of Consciousness is awake, alert, obeys commands, Oriented to person, place, time, situation. Cardiovascular: Capillary refill < 3 seconds Patient's skin is warm and dry. Rhythm is sinus rhythm. Respiratory: Airway is patent Respiratory effort is even, unlabored. GI: Abdomen is flat, non-distended, Reports nausea. : No signs and/or symptoms were reported regarding the genitourinary system. EENT: No signs and/or symptoms were reported regarding the EENT system. Derm: No signs and/or symptoms reported regarding the dermatologic system. Musculoskeletal: No signs and/or symptoms reported regarding the musculoskeletal system. 08:54 Reassessment: PER LAB, PT +COVID. INFORMED. bp 09:27 Reassessment: Dr Ambriz in room with patient. nj1 09:47 Reassessment: Patient appears in no apparent distress at this time. Patient is alert, nj1 oriented x 3, equal unlabored respirations, skin warm/dry/pink. Vital Signs: 07:42 BP 147 / 64; Pulse 89; Resp 16; Temp 97.1; Pulse Ox 98% ; vc1 08:24 BP 173 / 62; Pulse 84; Resp 18; Temp 98.6(O); Pulse Ox 100% on R/A; Weight 64.41 kg; ld1 Height 5 ft. 2 in. ; Pain 0/10; 09:27 BP 148 / 61; Pulse 82; Resp 16; Pulse Ox 100% on R/A; nj1 09:47 BP 139 / 57; Pulse 82; Resp 12; Temp 98.5(O); Pulse Ox 100% on R/A; nj1 08:24 Body Mass Index 25.97 (64.41 kg, 157.48 cm) ld1 08:24 Pain Scale: Adult ld1 ED Course: 07:33 Patient arrived in ED. mg5 07:33 Jose Ambriz MD is Attending Physician. rt 07:43 Triage completed. vc1 07:44 Arm band placed on. vc1 08:24 Tamra Quinones, KASH is Primary Nurse. ld1 08:24 Patient has correct armband on for positive identification. Placed in gown. Bed in low ld1 position. Call light in reach. Side rails up X2. desk monitor on. Pulse ox on. NIBP on. Door closed. Noise minimized. Warm blanket given. 08:24 SARS RAPID Sent. ld1 08:24 Influenza Screen (a \T\ B) Sent. ld1 08:24 UAM Sent. ld1 08:24 No provider procedures requiring assistance completed. Inserted saline lock: 20 gauge ld1 in right antecubital area, using aseptic technique. Blood collected. 08:44 XRAY Chest (1 view) In Process Unspecified. EDMS 09:48 Provided Education on: discharge instructions. nj1 09:48 IV discontinued, intact, bleeding controlled, Pressure dressing applied. nj1 Administered Medications: 08:24 Drug: NS 0.9% IV 1000 ml IV at 1 bolus Per protocol; 1000 mL bolus Route: IV; Rate: 1 ld1 bolus; Site: right antecubital; 09:48 Follow up: Response: No adverse reaction; IV Status: Completed infusion; IV Intake: nj1 1000ml 08:24 Drug: Ondansetron IVP 4 mg IVP once; over 2 minutes Route: IVP; Site: right antecubital;ld1 09:47 Follow up: Response: No adverse reaction nj1 Medication: 09:49 VIS not applicable for this client. nj1 Intake: 09:48 IV: 1000ml; Total: 1000ml. nj1 Outcome: 09:29 Discharge ordered by . rt 09:48 Discharged to home ambulatory, with family, nj1 09:48 Condition: stable 09:48 Discharge instructions given to patient, Instructed on discharge instructions, follow up and referral plans. medication usage, Demonstrated understanding of instructions, follow-up care, medications, Prescriptions given X 2, 09:49 Patient left the ED. nj1 Signatures: Dispatcher [employer] EDCO Vernon Pop RN RN Tamra Torres RN RN ld1 Katerine Pat RN RN Jose Cash MD MD rt Shefali George RN RN nj1 Nicole Henderson mg5
[2024-04-29 10:06] VITALS: BP 139/57; TEMP 98.5; O2SAT 100
--- NOTE | 2024-04-30 16:54 | EKG ---
Test Date: 2024-04-29 Test Time: 08:21:27 Support Representative: Edyta DAMON MEASUREMENT RESULTS: Intervals: Rate: 82 CO: 114 QRSD: 84 QT: 370 QTc: 432 [place]: P: 76 CO: 114 QRS: 55 T: -21 INTERPRETIVE STATEMENTS: Normal sinus rhythm ST & T wave abnormality, consider inferior ischemia Abnormal ECG Compared to ECG 01/07/2024 16:29:29 ST (T wave) deviation now present Possible ischemia now present Electronically Signed On 04-30-24 16:49:31 CDT by Jalen Huitron
== END 2024-04-29 09:49 | disposition home or self-care (01) ==
LOC: ER 07:31
DX: U07.1 COVID-19 (principal); N39.0 Urinary tract infection, site not specified; E78.5 Hyperlipidemia, unspecified; I10 Essential (primary) hypertension; E11.9 Type 2 diabetes mellitus without complications; M19.90 Unspecified osteoarthritis, unspecified site
CPT/HCPCS: 96361; 93005; 87088; 85025; 81001; 87086; 80048; 36415; 83735; 80076; 87077; 87186; 84484; 87804 ×2; 71045; 96374; 99285; 87811; J2405; J7030

== ENCOUNTER 2024-10-19 06:35 | Day surgery (SDC) | payer OTHER ==
[2024-10-15 11:12] LABS: Absolute Basophils 0.1 K/uL (0-0.5); Absolute Eosinophils 0.1 K/uL (0-0.5); Absolute Monocytes 0.5 K/uL (0.1-1.3); Absolute Neutrophil 3.9 K/uL (1.8-8.0); Basophils % 0.8 % (0-1.3); Eosinophils % 1.9 % (0-4.4); Hemoglobin 9.9 g/dL (12.0-15.0); Lymphocytes % 30.6 % (15.3-44.8); MCH 29.8 pg (27.0-35.0); MCHC 34.2 g/dL (32.0-36.0); MCV 86.9 fL (80-100); MPV 8.7 fL (7.6-11.3); Monocytes % 7.1 % (3.3-12.3); Neutrophils % 59.6 % (41.7-73.7); Platelets 253 thou/uL (152-406); RBC Red Blood Cell Count 3.34 M/uL (3.86-4.86); Red Cell Distribution Width 14.1 % (12.1-15.2)
[2024-10-15 11:29] LABS: Anion Gap 8.1 mEq/L (5.0-15.0); Potassium 4.1 mEq/L (3.5-5.1)
[2024-10-15 11:36] LABS: PT Prothrombin Time 10.6 SECONDS (9.4-12.5); PTT, Activated Partial Thromb 29.2 SECONDS (24.3-36.9); Protime INR 0.94
--- NOTE | 2024-10-18 17:31 | EKG ---
Test Date: 2024-10-15 Test Time: 11:48:35 Classroom Teacher: MEASUREMENT RESULTS: Intervals: Rate: 68 OK: 136 QRSD: 80 QT: 408 QTc: 433 [place]: P: 49 OK: 136 QRS: 66 T: 43 INTERPRETIVE STATEMENTS: Normal sinus rhythm Nonspecific ST and T wave abnormality Abnormal ECG Compared to ECG 04/29/2024 08:21:27 Possible ischemia no longer present ST (T wave) deviation still present Electronically Signed On 10-18-24 17:23:03 REGISTERED RESPIRATORY THERAPIST by Jalen Huitron
[2024-10-19] MEDS ORDERED: HEPA 1000U/500MLS 2,000 UNIT/1,000 ML BAG IV ONE (06:57)
[2024-10-19] MEDS ORDERED: LIDOCAINE 1% 20 ML MDV ONE (06:58)
[2024-10-19] MEDS ORDERED: FENTANYL CITR 100 MCG/2 ML ONE (06:58)
[2024-10-19] MEDS ORDERED: MIDAZOLAM HCL 2 MG/2 ML INJ ONE (06:58)
[2024-10-19] MEDS ORDERED: ATROPINE SULF 1 MG/10 ML SYR IV ONE (06:58)
[2024-10-19] MEDS ORDERED: HYDRALAZINE HCL 20 MG/ML VIAL ONE (07:44)
[2024-10-19] MEDS: NA CHLORIDE 0.9% 500 ML ONE (08:15)
--- NOTE | 2024-10-19 08:24 | OP ---
Date of Procedure: 10/19/2024 Surgeon: BENY ASIF Procedures Performed: 1.Selective carotid angiogram bilaterally. 2.Peripheral angiogram with runoff. Indications: 1.Carotid stenosis. 2.Peripheral vascular disease with symptoms. Access: Right common femoral artery 5-Greek, closed with 5-Greek Mynx closure device. Complications: None. Bleeding: Less than 50 mL. Anesthesia: Total sedation time was 45 minutes, used fentanyl, Versed. Description Of Procedure: After risks, benefits, and alternatives were explained, the patient agreed to procedure and signed informed consent. The patient was brought into cardiac catheterization labo ratory, prepped and draped in usual sterile fashion. Then, I accessed right common femoral artery us ing micropuncture kit, ultrasound guidance, fluoroscopy, placed 5-Greek [place] sheath and took a 4 -Greek 3DRC catheter into the aortic root, engaged the right common carotid, took standard views and the left common carotid, took standard views, and then exchanged for a 4-Greek straight pigtail cat heter, placed in distal aorta, performed distal aortogram and runoff, and then removed the catheter a nd the sheath. A Mynx closure device was used for closure with good hemostasis. Findings: Carotid angiogram: 1.Right common carotid artery and external carotid artery on the right are normal and the right inte rnal carotid has mild 20% stenosis. 2.Left common carotid is normal. Left internal carotid has proximal 80% stenosis. The left externa l carotid is normal. Peripheral angiogram: 1.Distal aorta is widely patent. 2.Right lower extremity: Right common iliac, external iliac, common femoral, profunda are patent. The right SFA has proximal to mid to distal diffuse 80% stenosis and then popliteal artery has about 80% stenosis and the anterior tibial is occluded. Posterior tibial is occluded and the peroneal is t he only artery is present with diffuse 70% stenosis. 3.Left lower extremity: The common iliac, external iliac, common femoral, and profunda are widely p atent and the SFA on the left has proximal 40%, mid 80%, popliteal has about 70% stenosis and the ant erior tibial is occluded. Posterior tibial is occluded and peroneal has proximal 99% stenosis and th en reconstitutes with some collaterals. Conclusions: 1.Severe left internal carotid artery stenosis. We will plan for endarterectomy. 2.Severe bilateral peripheral vascular disease. We will plan for intervention on the SFA, some poss ible below the knee, especially on the left at [place]. /MODL Voice ID: [id number] Report ID: [id number]
[2024-10-19 09:53] VITALS: BP 111/45; O2SAT 100
== END 2024-10-19 09:59 | disposition home or self-care (01) ==
LOC: CCL 06:35
PROVIDERS: ATTEND Internal Medicine
DX: I65.23 Occlusion and stenosis of bilateral carotid arteries (principal); I70.223 Atherosclerosis of native arteries of extremities with rest pain, bilateral legs; I70.92 Chronic total occlusion of artery of the extremities; I10 Essential (primary) hypertension; E78.2 Mixed hyperlipidemia; E11.9 Type 2 diabetes mellitus without complications; Z79.84 Long term (current) use of oral hypoglycemic drugs; Z79.899 Other long term (current) drug therapy
CPT/HCPCS: 93005; 85025; 80048; 36415; 85610; 85730; 75630; 36222; 76937; C1893; J0360; J2003; J2250; J3010; J7040; 36200; 99152; 99153; J0461

== ENCOUNTER 2024-11-18 04:01 | Emergency (ER) | payer OTHER ==
--- OUTSIDE RECORDS SUMMARY | 2024-11-18 04:07 | XMS REPORT | Continuity of Care Document ---
Author Name Unknown Address [address] [facility] [address]. [address] [place] [address] [facility] thconnect Address [address] [facility]. [address] [place] [address] Care Team Providers Care Merchandising Team Lead Name Role Phone GLORIA SIMS Primary Care Physician Gloria Jonas Attending Clinician Unavailable Onesimo Urias Attending Clinician Unavailable DIVYA RUVALCABA Attending Clinician DIVYA Thibodeaux JR Attending Clinician ANISA Garcia Attending Clinician UnavailSara Woods Attending Clinician TJ Gross Attending Clinician Unavailable ANDERSON WOODS Attending Clinician SIOBHAN Dillard Attending Clinician Unavailable Siobhan Pereira MD Attending Clinician Anderson Malave Attending Clinician + [phone] Jonnie ARRIAGA Attending Clinician Unavailable Anisa Jacob MD Attending Clinician [phone] Iliana DIXON, Divya Salazar Attending Clinician + [phone] Doctor Unassigned, [place] Attending Clinician U navailable Only, Adc Test Attending Clinician Unavailable Pob, [facility] Main Attending Clinician Unavailjonathan Cam Jr., MD, Divya Ramires Attending Clinician + [phone] Veronica DIXON, Patricia Jean Baptiste Attending Clinician +[phone] Yue RN, Yesenia Attending Clinician Unavailjonathan Benítez RN, Matt A Attending Clinician Unavail able Sun Elam S Attending Clinician [phone] DIVYA RUVALCABA Admitting Clinician UnaDIVYA Winkler JR Admitting Clinician UnavailANISA Whalen Admitting Clinician UnavailSara Woods Admitting Clinician UnavailSIOBHAN Kingston Admitting Clinician Unavailable Jonnie ARRIAGA Admitting Clinician Unavailable Iliana DIXON, Divya Salazar Admitting Clinician + [phone] Dorina Simental MD, Divya Ramires Admitting Clinician + [phone] Anisa Jacob MD Admitting Clinician [phone] Payers Payer Name Policy Type Policy Number Effective Date Expirati on Date Source [facility]/AARP MEDICARE ADVANTAGE [id number] 2021 00:00:00 [facility] AARP MCR Advantage (HMO-POS) 53 [id number] 2020 00:00:00 [facility] MEDICARE NOVITAS [id number] 2020 00:00:00 [facility] MEDICARE NOVITAS [id number] 2020 00:00:00 [facility] HEALTH CHOICE [id number] 2017 00:00:00 Problems Condition Name Condition Details Condition Category Status Onset Date Resolution Date Last Treatment Date Treating Clinician Comments Source Peripheral arterial disease Peripheral arterial disease Disease Active 04-24 00:00: 00 Overview: Formattin g of this note might be different from the original. Added automatic ally from request for surgery [id number] [facility] Neuropathy Neuropathy Disease Active 04-24 00:00: 00 Overview: Formattin g of this note might be different from the original. Added automatic ally from request for surgery [id number] [facility] PAD (periphera l artery disease) PAD (periphera l artery disease) Disease Active 04-06 00:00: 00 [facility] Type 2 diabetes mellitus with complicati on, without long-term current use of insulin Type 2 diabetes mellitus with complicati on, without long-term current use of insulin Disease Active 08-18 00:00: 00 [facility] Dyslipidem ia Dyslipidem ia Disease Active 08-18 00:00: 00 [facility] Elevated ALT measuremen t Elevated ALT measuremen t Disease Active 08-18 00:00: 00 [facility] [id number] Current moderate episode of major depressive disorder without prior episode Problem [facility] [id number] Chronic fatigue Problem [facility] [id number] Nausea and vomiting, intractabi lity of vomiting not specified, unspecifie d vomiting type Problem [facility] Foot pain Foot pain Problem [facility] Decreased hearing Decreased hearing Problem [facility] Colon cancer screening Colon cancer screening Problem [facility] [id number] Chronic pain syndrome Problem [facility] [id number] Skin lesion Problem [facility] [id number] Anemia, unspecifie d type Problem [facility] [id number] Nonintract able headache, unspecifie d chronicity pattern, unspecifie d headache type Problem [facility] [id number] Mixed hyperlipid emia Problem [facility] [id number] Uncontroll ed type 2 diabetes mellitus without complicati on, without long-term current use of insulin Problem [facility] [id number] 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 Problem [facility] [id number] Polyarthra lgia Problem [facility] [id number] Abnormal liver function Problem [facility] [id number] Vitamin D deficiency Problem [facility] [id number] Essential hypertensi on Problem [facility] [id number] Gastroesop hageal reflux disease, esophagiti s presence not specified Problem [facility] Allergies, Adverse Reactions, Alerts Allergy Name Allergy Type Status Severity Reaction(s) Onset Date Inactive Date Treating Clinician Comments Source No Known Allergie s DA Active U 2023-12 00:00: 00 [facility] NO KNOWN ALLERGIE S Drug Class Active [facility] Social History Social Habit Start Date Stop Date Quantity Comments Source History of Tobacco Use [facility] Sex Assigned At [facility] Exposure to SARS-CoV-2 (event) 2022-06-19 00:00:00 2022-06-29 20:04:00 Not sure [facility] Tobacco use and exposure 2021-04-06 00:00:00 2021-04-06 00:00:00 Smokeless tobacco non-user [facility] Smoking Status Start Date Stop Date Source Never Smoker [facility] Medications Ordered Medication Name Filled Medication Name Start Date Stop Date Current Medication? Ordering Clinician Indication Dosage Frequency Signature (SIG) Comments Components Source Pregabalin 75 MG Pregabalin 75 MG 2022-12 00:00: 00 No 1{capsu le} BID Pregabalin 75 MG Pregabalin 75 MG Pregabalin 75 MG 2022-12- 00:00: 00 No 1{capsu le} BID Pregabalin 75 MG Pregabalin 75 MG Pregabalin 75 MG 2022-12- 00:00: 00 No 1{capsu le} BID Pregabalin 75 MG Pregabalin 75 MG Pregabalin 75 MG 2022-12- 00:00: 00 No 1{capsu le} BID Pregabalin [...] 70 MG Alendronate Sodium 70 MG 2022-12 01-01 00:00: 00 No Alendronat e Sodium 70 MG Alendronate Sodium 70 MG Alendronate Sodium 70 MG 2022-12 00:00: 00 No Alendronat e Sodium 70 MG Alendronate Sodium 70 MG Alendronate Sodium 70 MG 2022-12 00:00: 00 No Alendronat e Sodium 70 MG Alendronate Sodium 70 MG Alendronate Sodium 70 MG 2022-12 00:00: 00 No Alendronat e Sodium 70 MG Cyanocobala min Cyanocobala min 2021-0 9-14 00:00: 00 No 1000ug [facility] Cyanocobala min Cyanocobala min 2021-0 -14 00:00: 00 No 1000ug [facility] Cyanocobala min Cyanocobala min 2021-0 -14 00:00: 00 No 1000[facility] Cyanocobala min Cyanocobala min 2021-0 -14 00:00: 00 No 1000ug [facility] Cyanocobala min Cyanocobala min 2021-0 9-14 00:00: 00 No 1000ug [facility] Cyanocobala min Cyanocobala min 2021-0 -14 00:00: 00 No 1000ug [facility] Cyanocobala min Cyanocobala min 2021-0 9-14 00:00: 00 No 1000ug [facility] Cyanocobala min Cyanocobala min 2021-0 -14 00:00: 00 No 1000ug [facility] Cyanocobala min Cyanocobala min 2021-0 9-14 00:00: 00 No 1000ug [facility] Cyanocobala min Cyanocobala min 2021-0 -14 00:00: 00 No 1000ug [facility] Cyanocobala min Cyanocobala min 2021-0 9-14 00:00: 00 No 1000ug [facility] Cyanocobala min Cyanocobala min 2021-0 9-14 00:00: 00 No 1000ug [facility] Cyanocobala min Cyanocobala min 0 9-14 00:00: 00 No 1000ug Common [facility] Vitamin B12 (Cyanocobal riggs) Vitamin B12 (Cyanocobal riggs) 2021-0 8-16 00:00: 00 No 1000ug Common [facility] Cyanocobala min Cyanocobala min 0 8-16 00:00: 00 No 1000[facility] Cyanocobala min Cyanocobala min 0 8-16 00:00: 00 No 1000ug Common [facility] Cyanocobala min Cyanocobala min 0 8-16 00:00: 00 No 1000ug Common [facility] Cyanocobala min Cyanocobala min 0 8-16 00:00: 00 No 1000ug Common [facility] Cyanocobala min Cyanocobala min 0 8-16 00:00: 00 No 1000ug Common [facility] Cyanocobala min Cyanocobala min 0 8-16 00:00: 00 No 1000ug Common [facility] Cyanocobala min Cyanocobala min 0 8-16 00:00: 00 No 1000ug [facility] Cyanocobala min Cyanocobala min 0 8-16 00:00: 00 No 1000ug Common [facility] Cyanocobala min Cyanocobala min 0 8-16 00:00: 00 No 1000ug Common [facility] Cyanocobala min Cyanocobala min 0 8-16 00:00: 00 No 1000ug Common [facility] Cyanocobala min Cyanocobala min 0 8-16 00:00: 00 No 1000ug Common [facility] Cyanocobala min Cyanocobala min 0 8-16 00:00: 00 No 1000ug Common [facility] Cyanocobala min Cyanocobala min 8-16 00:00: 00 No 1000ug [facility] NaCl 0.9% (NS) bolus infusion 500 mL 06-30 01:30: 00 06-30 04:00 :00 No 500mL at 999 mL/hr, 500 mL, IV Infusion, ONCE, 1 dose, On 06/29/22 at 2029, STAT [facility] diphenhydrA MINE (BENADRYL) injection 25 mg 06-30 01:30: 00 06-30 01:48 :00 No 25mg 25 mg, Slow IV Push, ONCE, 1 dose, On 06/29/22 at 2029, STAT [facility] metoclopram ana HCl (REGLAN) injection 10 mg 06-30 01:30: 00 06-30 01:48 :00 No 10mg 10 mg, Slow IV Push, ONCE, 1 dose, On 06/29/22 at 2029, ZARI [facility] ondansetron (ZOFRAN) 4 mg tablet 06-29 00:00: 00 Yes [id number] 4mg Take 1 tablet by mouth every 8 (eight) hours as needed for Nausea and Vomiting (N/V). [facility] traMADoL (ULTRAM) 50 mg tablet 06-29 00:00: 00 Yes [id number] 50mg Take 1 tablet by mouth every 6 (six) hours as needed for Pain (scale 7-10). Indication s: acute pain [facility] butalbital- acetaminoph en-caff 50-325-40 mg tablet 06-29 00:00: 00 06-29 00:00 :00 No [id number] 1{tbl} Take 1 tablet by mouth every 6 (six) hours as needed (Headache) . [facility] Sertraline HCl 25 MG Sertraline HCl [...] 10mg Take 10 mg by mouth daily. [facility] DULoxetine 30 mg CDRS 05-30 14:30: 22 Yes 1{capsu le} Take 1 capsule by mouth 2 (two) times daily. [facility] Jardiance 10 MG Jardiance 10 MG 05-15 00:00: 00 06-14 00:00 :00 No 1{table t} QD Jardiance 10 MG pioglitazon e 15 mg tablet 05-09 16:17: 08 Yes 15mg Take 15 mg by mouth daily. [facility] gabapentin 100 mg capsule 05-09 16:17: 08 Yes 100mg Take 100 mg by mouth 3 (three) times daily. [facility] lisinopriL 10 mg tablet 05-09 16:17: 08 Yes 10mg Take 10 mg by mouth daily. [facility] rosuvastati n 20 mg tablet 05-09 16:17: 08 Yes 20mg Take 20 mg by mouth at bedtime. [facility] glimepiride 4 mg tablet 05-09 16:14: 17 Yes 4mg Take 4 mg by mouth daily with breakfast. [facility] Insulin Glargine (LANTUS SOLOSTAR U-100 INSULIN) 100 unit/mL (3 mL) injection 05-09 16:14: 17 Yes inject under the skin. [facility] metFORMIN 1,000 mg tablet 05-09 16:14: 17 Yes 1000mg Take 1,000 mg by mouth 2 (two) times daily with meals. [facility] diazePAM 5 MG diazePAM 5 MG 01-25 00:00: 00 No 1{table t_as_ne eded} QD diazePAM 5 MG diazePAM 5 MG diazePAM 5 MG 2-25 00:00: 00 No 1{table t_as_ne eded} QD diazePAM 5 MG diazePAM 5 MG diazePAM 5 MG 2-25 00:00: 00 No 1{table t_as_ne eded} QD diazePAM 5 MG diazePAM 5 MG diazePAM 5 MG 2-25 00:00: 00 No 1{table t_as_ne eded} QD diazePAM 5 MG DULoxetine HCl 20 MG DULoxetine HCl 20 MG 2- 00:00: 00 No 1{capsu le} QD DULoxetine HCl 20 MG dicyclomine HCl (DICYCLOMIN E ORAL) 2020-12 08:53: 10 Yes 200mg Take 200 mg by mouth. [facility] ergocalcife rol, vitamin d2, (VITAMIN D2) 50,000 unit capsule 2020-12 08:53: 10 Yes [id number] Take 50,000 Units by mouth weekly. [facility] metFORMIN 500 mg tablet 2020-12 08:53: 10 Yes 500mg Take 500 mg by mouth 2 (two) times daily with meals. [facility] meloxicam 7.5 mg tablet 2020-12 08:53: 10 Yes 7.5mg Take 7.5 mg by mouth daily. [facility] pioglitazon e 30 mg tablet 2020-12 08:53: 10 Yes 30mg Take 30 mg by mouth daily. [facility] Rollator walker n/s Rollator walker n/s [...] 100 mg capsule 8-24 00:00: 00 Yes [id number] TAKE 1 CAPSULE BY MOUTH EVERY 12 HOURS FOR 7 DAYS [facility] Contour Next Test - Contour Next Test [...] (scale 7-10). Indication s: acute pain [facility] acetaminoph en-codeine 300-30 mg tablet 05-30 00:00: 00 Yes [id number] 1{tbl} Take 1 tablet by mouth every 6 (six) hours as needed for Pain (scale 7-10) for up to 18 doses. Indication s: acute pain [facility] Pen Parker 5/16" 31G X 8 MM Pen Parker 5/16" 31G X 8 MM 2020-0 04-26 00:00: 00 No QD Pen Parker 5/16" 31G X 8 MM Lisinopril 10 MG Lisinopril 10 MG 04-26 00:00: 00 No 1{table t} QD Lisinopril 10 MG Pen Parker 5/16" 31G X 8 MM Pen Parker 5/16" 31G X 8 MM 2020-0 04-26 00:00: 00 No QD Pen Parker 5/16" 31G X 8 MM Pen Parker 5/16" 31G X 8 MM Pen Parker 5/16" 31G X 8 MM 2020-0 04-26 00:00: 00 No QD Pen Parker 5/16" 31G X 8 MM Lisinopril 10 MG Lisinopril 10 MG 2020-0 04-26 00:00: 00 No 1{table t} QD Lisinopril 10 MG Lisinopril 10 MG Lisinopril 10 MG 2020-0 5-27 00:00: 00 No 1{table t} QD Lisinopril 10 MG Pen Parker 5/16" 31G X 8 MM Pen Parker 5/16" 31G X 8 MM 04-26 00:00: 00 No QD Pen Parker 5/16" 31G X 8 MM Lisinopril 10 MG Lisinopril 10 MG 04-26 00:00: 00 No 1{table t} QD Lisinopril 10 MG Pen Parker 5/16" 31G X 8 MM Pen Parker 5/16" 31G X 8 MM 0 04-26 00:00: 00 No QD Pen Parker 5/16" 31G X 8 MM aspirin 81 mg chewable tablet 04-07 00:00: 00 Yes [id number] 81mg Take 1 tablet by mouth daily. [facility] atorvastati n (LIPITOR) 20 mg tablet 08-24 00:00: 00 Yes 20mg Take 1 tablet by mouth at bedtime. [facility] Pioglitazon e HCl Pioglitazon e HCl 08-07 00:00: 00 Yes Kamala Millender 1 tablet [facility] Januvia Januvia 08-06 00:00: 00 Yes Kamala Millender 1 tablet [facility] Ondansetron HCl Ondansetron HCl 08-06 00:00: 00 Yes Kamala Millender 1 tablet as needed for nausea/vom iting [facility] Lancets Lancets 04-09 00:00: 00 Yes Kamala Garcia as directed; dispense lancets formulary to [facility] BL Blood Glucose Monitor Kit BL Blood Glucose Monitor Kit 04-09 00:00: 00 Yes Kamala Garcia As directed; DISPENSE BG MONITOR FORMULARY TO [facility] blood glucose test strip blood glucose test strip 04-09 00:00: 00 07-03 00:00 :00 No Kamala Garcia as directed; DISPENSE TESTING STRIPS FORMULARY TO [facility] Glimepiride Glimepiride Yes Kamala Millender 1 tablet [facility] Gabapentin Gabapentin Yes Kamala Millender 1 capsule [facility] Cyclobenzap rine HCl Cyclobenzap rine HCl Yes Kamala Millender 1 tablet as needed [facility] Mobic Mobic Yes Kamala Millender 1 tablet [facility] Metformin HCl Metformin HCl Yes Kamala Millender 1 tablet with a meal [facility] Aspirin 81 81 MG Aspirin 81 81 [...] OVER 65 2021-10-16 14:11:00 Completed [facility] FLUZONE HIGH DOSE OVER 65 FLUZONE HIGH DOSE OVER 65 2021-10-16 14:11:00 Completed [facility] FLUZONE HIGH DOSE OVER 65 FLUZONE HIGH DOSE OVER 65 2021-10-16 14:11:00 Completed [facility] FLUZONE HIGH DOSE OVER 65 FLUZONE HIGH DOSE OVER 65 2021-10-16 14:11:00 Completed [facility] COVID-19 Vaccine (Brett) COVID-19 Vaccine (Brett) 2021-02-19 14:31:00 Completed [facility] COVID-19 Vaccine (Brett) COVID-19 Vaccine (Brett) 2021-02-19 14:31:00 Completed [facility] COVID-19 Vaccine (Brett) COVID-19 Vaccine (Brett) 2021-02-19 14:31:00 Completed [facility] COVID-19 Vaccine (Brett) COVID-19 Vaccine (Brett) 2021-02-19 14:31:00 Completed [facility] SARS-COV-2 COVID-19 BRETT/J&J VACCINE 2021-02-19 00:00:00 Completed [facility] SARS-COV-2 COVID-19 BRETT/J&J VACCINE 2021-02-19 00:00:00 Completed [facility] Prevnar 20 (PCV20) Prevnar 20 (PCV20) Unknown Completed [facility] Fluad (aIIV4) - SDS - 0.5mL Fluad (aIIV4) - SDS - 0.5mL Unknown Completed [facility] COVID-19 Vaccine (Brett) COVID-19 Vaccine (Brett) Unknown Completed [facility] FLUZONE HIGH DOSE OVER 65 FLUZONE HIGH DOSE OVER 65 Unknown Completed [facility] Prevnar 20 (PCV20) Prevnar 20 (PCV20) Unknown Completed [facility] Fluad (aIIV4) - SDS - 0.5mL Fluad (aIIV4) - SDS - 0.5mL Unknown Completed [facility] COVID-19 Vaccine (Brett) COVID-19 Vaccine (Brett) Unknown Completed [facility] FLUZONE HIGH DOSE OVER 65 FLUZONE HIGH DOSE OVER 65 Unknown Completed [facility] Prevnar 20 (PCV20) Prevnar 20 (PCV20) Unknown Completed [facility] Fluad (aIIV4) - SDS - 0.5mL Fluad (aIIV4) - SDS - 0.5mL Unknown Completed [facility] COVID-19 Vaccine (Brett) COVID-19 Vaccine (Brett) Unknown Completed [facility] FLUZONE HIGH DOSE OVER 65 FLUZONE HIGH DOSE OVER 65 Unknown Completed [facility] Prevnar 20 (PCV20) Prevnar 20 (PCV20) Unknown Completed [facility] Fluad (aIIV4) - SDS - 0.5mL Fluad (aIIV4) - SDS - 0.5mL Unknown Completed [facility] COVID-19 Vaccine (Brett) COVID-19 Vaccine (Brett) Unknown Completed [facility] FLUZONE HIGH DOSE OVER 65 FLUZONE HIGH DOSE OVER 65 Unknown Completed [facility] Prevnar 20 (PCV20) Prevnar 20 (PCV20) Unknown Completed [facility] Fluad (aIIV4) - SDS - 0.5mL Fluad (aIIV4) - SDS - 0.5mL Unknown Completed [facility] COVID-19 Vaccine (Brett) COVID-19 Vaccine (Brett) Unknown Completed [facility] FLUZONE HIGH DOSE OVER 65 FLUZONE HIGH DOSE OVER 65 Unknown Completed [facility] Prevnar 20 (PCV20) Prevnar 20 (PCV20) Unknown Completed [facility] Fluad (aIIV4) - SDS - 0.5mL Fluad (aIIV4) - SDS - 0.5mL Unknown Completed [facility] COVID-19 Vaccine (Brett) COVID-19 Vaccine (Brett) Unknown Completed [facility] FLUZONE HIGH DOSE OVER 65 FLUZONE HIGH DOSE OVER 65 Unknown Completed [facility] Prevnar 20 (PCV20) Prevnar 20 (PCV20) Unknown Completed [facility] Fluad (aIIV4) - SDS - 0.5mL Fluad (aIIV4) - SDS - 0.5mL Unknown Completed [facility] COVID-19 Vaccine (Brett) COVID-19 Vaccine (Brett) Unknown Completed [facility] FLUZONE HIGH DOSE OVER 65 FLUZONE HIGH DOSE OVER 65 Unknown Completed [facility] Prevnar 20 (PCV20) Prevnar 20 (PCV20) Unknown Completed [facility] Fluad (aIIV4) - SDS - 0.5mL Fluad (aIIV4) - SDS - 0.5mL Unknown Completed [facility] COVID-19 Vaccine (Brett) COVID-19 Vaccine (Brett) Unknown Completed [facility] FLUZONE HIGH DOSE OVER 65 FLUZONE HIGH DOSE OVER 65 Unknown Completed [facility] Prevnar 20 (PCV20) Prevnar 20 (PCV20) Unknown Completed [facility] Fluad (aIIV4) - SDS - 0.5mL Fluad (aIIV4) - SDS - 0.5mL Unknown Completed [facility] COVID-19 Vaccine (Brett) COVID-19 Vaccine (Brett) Unknown Completed [facility] FLUZONE HIGH DOSE OVER 65 FLUZONE HIGH DOSE OVER 65 Unknown Completed [facility] Prevnar 20 (PCV20) Prevnar 20 (PCV20) Unknown Completed [facility] Fluad (aIIV4) - SDS - 0.5mL Fluad (aIIV4) - SDS - 0.5mL Unknown Completed [facility] COVID-19 Vaccine (Brett) COVID-19 Vaccine (Brett) Unknown Completed [facility] FLUZONE HIGH DOSE OVER 65 FLUZONE HIGH DOSE OVER 65 Unknown Completed [facility] Prevnar 20 (PCV20) Prevnar 20 (PCV20) Unknown Completed [facility] Fluad (aIIV4) - SDS - 0.5mL Fluad (aIIV4) - SDS - 0.5mL Unknown Completed [facility] COVID-19 Vaccine (Brett) COVID-19 Vaccine (Brett) Unknown Completed [facility] FLUZONE HIGH DOSE OVER 65 FLUZONE HIGH DOSE OVER 65 Unknown Completed [facility] Vital Signs Vital Name Observation Time Observation Value Comments Linda forbes height 2023-11-17 08:40:00 56 [in_i] Commo n [facility] weight 2023-11-17 08:40:00 105.4 [lb_av] Co mmon [facility] temperature 2023-11-17 08:40:00 98.0 [degF] Com [facility] bmi 2023-11-17 08:40:00 23.63 kg/m2 Comm on [facility] oximetry 2023-11-17 08:40:00 100 % Commo n [facility] respiratory rate 2023-11-17 08:40:00 16 /min [facility] blood pressure systolic 2023-11-17 08:40:00 148 mm[Hg] [facility] blood pressure diastolic 2023-11-17 08:40:00 72 mm[Hg] [facility] height 2023-08-25 10:00:00 56 [in_i] Commo n [facility] weight 2023-08-25 10:00:00 100.8 [lb_av] Co mmon [facility] temperature 2023-08-25 10:00:00 97.9 [degF] Com [facility] bmi 2023-08-25 10:00:00 22.6 kg/m2 Commo n [facility] oximetry 2023-08-25 10:00:00 98 % Commo n [facility] respiratory rate 2023-08-25 10:00:00 16 /min [facility] blood pressure systolic 2023-08-25 10:00:00 139 mm[Hg] Common [facility] blood pressure diastolic 2023-08-25 10:00:00 71 mm[Hg] [facility] height 2023-08-25 10:20:00 56 [in_i] Commo n [facility] weight 2023-08-25 10:20:00 100.8 [lb_av] Co mmon [facility] temperature 2023-08-25 10:20:00 97.9 [degF] Com [facility] bmi 2023-08-25 10:20:00 22.6 kg/m2 Commo n [facility] oximetry 2023-08-25 10:20:00 98 % Commo n [facility] respiratory rate 2023-08-25 10:20:00 16 /min Common [facility] blood pressure systolic 2023-08-25 10:20:00 139 mm[Hg] [facility] blood pressure diastolic 2023-08-25 10:20:00 71 mm[Hg] Common [facility] height 2023-07-31 13:20:00 56 [in_i] Commo n [facility] weight 2023-07-31 13:20:00 101.2 [lb_av] Co mmon [facility] temperature 2023-07-31 13:20:00 98.2 [degF] Com [facility] bmi 2023-07-31 13:20:00 22.69 kg/m2 Comm on [facility] oximetry 2023-07-31 13:20:00 96 % Commo n [facility] respiratory rate 2023-07-31 13:20:00 18 /min Common [facility] blood pressure systolic 2023-07-31 13:20:00 134 mm[Hg] Common [facility] blood pressure diastolic 2023-07-31 13:20:00 84 mm[Hg] Common [facility] height 2022-07-16 13:00:00 56 [in_i] Commo n [facility] weight 2022-07-16 13:00:00 97.8 [lb_av] Com [facility] temperature 2022-07-16 13:00:00 98.2 [degF] Com [facility] bmi 2022-07-16 13:00:00 21.92 kg/m2 Comm on [facility] oximetry 2022-07-16 13:00:00 100 % Commo n [facility] respiratory rate 2022-07-16 13:00:00 16 /min [facility] blood pressure systolic 2022-07-16 13:00:00 138 mm[Hg] [facility] blood pressure diastolic 2022-07-16 13:00:00 88 mm[Hg] [facility] Systolic blood pressure 2022-06-30 04:00:00 149 mm[Hg] [facility] Diastolic blood pressure 2022-06-30 04:00:00 61 mm[Hg] [facility] Heart rate 2022-06-30 04:00:00 92 /min [facility] Respiratory rate 2022-06-30 04:00:00 18 /min [facility] Oxygen saturation in Arterial blood by Pulse oximetry 2022-06-30 04:00:00 98 /min [facility] Body temperature 2022-06-30 01:07:00 38.22 Sravanthi [facility] Body height 2022-06-30 01:07:00 144.8 cm [facility] Body weight 2022-06-30 01:07:00 47.174 kg [facility] BMI 2022-06-30 01:07:00 22.51 kg/m2 [facility] height 2022-06-13 13:00:00 Commo n [facility] weight 2022-06-13 13:00:00 98.6 [lb_av] Com [facility] temperature 2022-06-13 13:00:00 97.2 [degF] Com [facility] bmi 2022-06-13 13:00:00 22.1 kg/m2 Commo n [facility] oximetry 2022-06-13 13:00:00 97 % Commo n [facility] respiratory rate 2022-06-13 13:00:00 16 /min Common [facility] blood pressure systolic 2022-06-13 13:00:00 136 mm[Hg] [facility] blood pressure diastolic 2022-06-13 13:00:00 69 mm[Hg] [facility] Systolic blood pressure 2022-05-30 19:32:00 140 mm[Hg] [facility] Diastolic blood pressure 2022-05-30 19:32:00 75 mm[Hg] [facility] Heart rate 2022-05-30 19:30:00 71 /min [facility] Body temperature 2022-05-30 19:30:00 37.06 Sravanthi [facility] Body height 2022-05-30 19:30:00 147.3 cm [facility] Body weight 2022-05-30 19:30:00 43.999 kg [facility] BMI 2022-05-30 19:30:00 20.27 kg/m2 [facility] Oxygen saturation in Arterial blood by Pulse oximetry 2022-05-30 19:30:00 100 /min [facility] height 2022-05-15 13:00:00 57 [in_i] Commo n [facility] weight 2022-05-15 13:00:00 99.8 [lb_av] Com [facility] temperature 2022-05-15 13:00:00 98.4 [degF] Com [facility] bmi 2022-05-15 13:00:00 21.59 kg/m2 Comm on [facility] oximetry 2022-05-15 13:00:00 96 % Commo n [facility] respiratory rate 2022-05-15 13:00:00 16 /min [facility] blood pressure systolic 2022-05-15 13:00:00 164 mm[Hg] Common [facility] blood pressure diastolic 2022-05-15 13:00:00 76 mm[Hg] [facility] height 2022-01-22 15:40:00 57 [in_i] Commo n [facility] weight 2022-01-22 15:40:00 110 [lb_av] Comm on [facility] temperature 2022-01-22 15:40:00 97.2 [degF] Com mon [facility] bmi 2022-01-22 15:40:00 23.80 kg/m2 Comm on [facility] oximetry 2022-01-22 15:40:00 98 % Commo n [facility] blood pressure systolic 2022-01-22 15:40:00 138 mm[Hg] Common [facility] blood pressure diastolic 2022-01-22 15:40:00 74 mm[Hg] Common [facility] height 2022-01-22 16:00:00 57 [in_i] Commo n [facility] weight 2022-01-22 16:00:00 110 [lb_av] Comm on [facility] temperature 2022-01-22 16:00:00 97.2 [degF] Com [facility] bmi 2022-01-22 16:00:00 23.80 kg/m2 Comm on [facility] oximetry 2022-01-22 16:00:00 98 % Commo n [facility] blood pressure systolic 2022-01-22 16:00:00 138 mm[Hg] Common [facility] blood pressure diastolic 2022-01-22 16:00:00 74 mm[Hg] Common [facility] height 2021-10-16 13:40:00 57 [in_i] Commo n [facility] weight 2021-10-16 13:40:00 109.4 [lb_av] Co mmon [facility] temperature 2021-10-16 13:40:00 98.2 [degF] Com mon [facility] bmi 2021-10-16 13:40:00 23.67 kg/m2 Comm on [facility] oximetry 2021-10-16 13:40:00 99 % Commo n [facility] respiratory rate 2021-10-16 13:40:00 16 /min Common [facility] blood pressure systolic 2021-10-16 13:40:00 140 mm[Hg] Common [facility] blood pressure diastolic 2021-10-16 13:40:00 76 mm[Hg] Common [facility] height 2021-08-21 14:40:00 57 [in_i] Commo n [facility] weight 2021-08-21 14:40:00 112.4 [lb_av] Co mmon [facility] temperature 2021-08-21 14:40:00 97.0 [degF] Com [facility] bmi 2021-08-21 14:40:00 24.32 kg/m2 Comm on [facility] oximetry 2021-08-21 14:40:00 98 % Commo n [facility] respiratory rate 2021-08-21 14:40:00 16 /min [facility] height 2021-05-24 11:40:00 57 [in_i] Commo n [facility] weight 2021-05-24 11:40:00 106 [lb_av] Comm on [facility] temperature 2021-05-24 11:40:00 98.2 [degF] Com [facility] bmi 2021-05-24 11:40:00 22.94 kg/m2 Comm on [facility] oximetry 2021-05-24 11:40:00 97 % Commo n [facility] respiratory rate 2021-05-24 11:40:00 20 /min [facility] blood pressure systolic 2021-05-24 11:40:00 138 mm[Hg] Common [facility] blood pressure diastolic 2021-05-24 11:40:00 74 mm[Hg] [facility] Procedures Procedure Date / Time Performed Performing Clinician Source URINALYSIS 2022-06-30 03:06:00 Siobhan Pereira [facility] CT HEAD WO CONTRAST 2022-06-30 01:47:00 Siobhan Pereira [facility] LIPASE 2022-06-30 01:32:00 Siobhan Pereira [facility] TROPONIN I 2022-06-30 01:32:00 Siobhan Pereira [facility] COMP. METABOLIC PANEL ([id number]) 2022-06-30 01:32:00 Siobhan Pereira [facility] CBC WITH DIFF 2022-06-30 01:32:00 Siobhan Pereira [facility] PROTHROMBIN TIME / INR 2022-06-30 01:32:00 Stanley Pereira [facility] COVID-19 (ID NOW RAPID TESTING) 2022-06-30 01:32:00 Siobhan Pereira [facility] CONSENT/REFUSAL FOR DIAGNOSIS AND TREATMENT 2022-06-30 00:48:26 Doctor Unassigned, [place] [facility] Encounters Start Date/Time End Date/Time Encounter Type Admission Type Attending Clinicians Care Facility Care Department Encounter ID Source 2024-08-24 08:41:00 Outpatient IvannaGloria [facility] [id number] Common [facility] 2024-01-19 13:34:00 Outpatient On[facility] [id number] [facility] 2024-01-15 16:43:00 Outpatient Gloria Sims [facility] [id number] [facility] 2023-08-28 09:25:00 Outpatient Ivanna Gloria [facility] [id number] [facility] 2023-07-31 13:22:00 Outpatient Gloria Sims [facility] [id number] [facility] 2022-08-12 13:25:00 Outpatient HuntingdonGloria marcano [facility]LML[facility] ST[facility] [id number] [facility] 2022-07-12 09:03:00 Outpatient Huntingdon[place]loria marcano [facility] ST[facility] [id number] [facility] 2021-12-26 14:35:38 Outpatient Gloria Sims [facility] ST[facility] [id number] [facility] 2021-12-26 14:07:57 Outpatient Gloria Sims [facility] ST[facility] [id number] [facility] 2021-12-26 13:58:41 Outpatient Gloria iSms STLMLC STLMLC [id number] [facility] 2021-12-26 13:26:23 Outpatient Gloria Sims [facility] ST[facility] [id number] [facility] 2021-12-26 13:07:52 Outpatient Gloria Sims [facility] ST[facility] [id number] [facility] 2021-12-26 12:46:22 Outpatient Gloria Sims [facility] ST[facility] [id number] [facility] 2021-12-26 12:45:46 Outpatient HuntingdonGloria marcano STLMLC STL[facility] [id number] [facility] 2021-12-26 12:43:16 Outpatient HuntingdonGloria marcano [facility] STL[facility] [id number] [facility] 2021-12-26 12:42:46 Outpatient HuntingdonGloria marcano [facility] ST[facility] [id number] [facility] 2021-12-26 12:41:53 Outpatient HuntingdonGloria marcano STL[facility] STL[facility] [id number] [facility] 2021-12-26 12:41:21 Outpatient Gloria Sims STL[facility] STL[facility]C [id number] [facility] 2021-12-26 12:25:33 Outpatient STLMLC STLMLC [id number] [facility] 2021-10-02 03:38:45 Outpatient DIVYA PIERSON [facility] OPH [id number] [facility] 2021-10-01 02:10:08 Outpatient DIVYA CAM JR [facility] SVC [id number] [facility] 2021-09-30 21:11:03 Outpatient ANISA JACOB [facility] [id number] [facility] 2021-09-30 17:40:10 Emergency [facility] [id number] [facility] 2024-11-15 17:12:00 2024-11-16 15:24:00 Inpatient Sara Arreola [facility] INTE [id number] [facility] 2023-12-02 00:00:00 2023-12-02 00:00:00 (TEL) STLMLC STLMLC [id number] [facility] 2023-11-17 00:00:00 2023-11-17 00:00:00 OFFICE VISIT ESTAB PT LEVEL 3 STLMLC STLMLC [id number] [facility] 2023-10-30 00:00:00 2023-10-30 00:00:00 (TEL) STLMLC STLMLC [id number] [facility] 2023-08-27 00:00:00 2023-08-27 00:00:00 (TEL) STLMLC STLMLC [id number] [facility] 2023-08-26 00:00:00 2023-08-26 00:00:00 (TEL) STLMLC STLMLC [id number] [facility] 2023-08-25 00:00:00 2023-08-25 00:00:00 OFFICE VISIT ESTAB PT LEVEL 3 STLMLC STLMLC [id number] [facility] 2023-08-25 00:00:00 2023-08-25 00:00:00 (TEL) STLMLC STLMLC [id number] [facility] 2023-08-25 00:00:00 2023-08-25 00:00:00 SUB [facility]NUAL [facility] WELLNESS VISIT STLMLC STLMLC [id number] [facility] 2023-08-07 00:00:00 2023-08-07 00:00:00 (TEL) STLMLC STLMLC [id number] [facility] 2023-07-31 00:00:00 2023-07-31 00:00:00 OFFICE VISIT ESTAB PT LEVEL 4 STLMLC STLMLC [id number] [facility] 2023-07-29 00:00:00 2023-07-29 00:00:00 (TEL) STLMLC STLMLC [id number] [facility] 2023-01-02 13:15:00 2023-01-02 13:15:00 Outpatient TJ FRANK [facility] [id number] [facility] 2022-12-24 09:00:00 2022-12-24 09:00:00 Outpatient ANISA DAO [facility] [id number] [facility] 2022-07-16 00:00:00 2022-07-16 00:00:00 OFFICE VISIT ESTAB PT LEVEL 4 STLMLC STLMLC [id number] [facility] 2022-07-04 00:00:00 2022-07-04 00:00:00 (TEL) STLMLC STLMLC [id number] [facility] 2022-06-29 19:58:00 2022-06-29 23:22:00 Emergency X SIOBHAN PEREIRA [facility] ERT [id number] [facility] 2022-06-29 19:58:00 2022-06-29 23:22:00 Emergency Siobhan Pereira [facility] 1..840.114 350.1.13.10 4.2.7.2.686 [id number] [facility] 2022-06-13 00:00:00 2022-06-13 00:00:00 OFFICE VISIT ESTAB PT LEVEL 4 STLMLC STLC [id number] [facility] 2022-05-30 15:00:00 2022-05-30 15:30:00 Office Visit Ishmael Woodsrique [facility] 1..840.114 350.1.13.10 4.2.7.2.686 [id number] [facility] 2022-05-30 15:00:00 2022-05-30 15:00:00 Outpatient R ISHMAEL WOODSRIQUE [facility] [id number] [facility] 2022-05-30 13:01:05 2022-05-30 13:00:00 Outpatient R [facility]EL [facility] [id number] [facility] 2022-05-15 00:00:00 2022-05-15 00:00:00 OFFICE [facility] [id number] 2022-05-09 16:00:00 2022-05-09 16:47:57 Outpatient R ISHMAEL WOODSRIQUE [facility] [id number] [facility] 2022-05-09 16:00:00 2022-05-09 16:47:57 Office Visit Woods, Anderson R [facility] 1..840.114 350.1.13.10 4.2.7.2.686 [id number] [facility] 2022-04-28 23:27:00 2022-04-29 03:35:00 Emergency X Jonnie ARRIAGA [facility] ERT [id number] [facility] 2022-02-05 14:00:00 2022-02-05 14:00:00 Outpatient R DANILO ANDERSON [facility] [id number] [facility] 2022-01-25 00:00:00 2022-01-25 00:00:00 (TEL) STLMLC STLMLC [id number] [facility] 2022-01-22 00:00:00 2022-01-22 00:00:00 OFFICE VISIT ESTAB PT LEVEL 4 STLMLC STLMLC [id number] [facility] 2022-01-22 00:00:00 2022-01-22 00:00:00 SUB ANNUAL [facility] WELLNESS VISIT STLMLC STLMLC [id number] [facility] 2022-01-10 00:00:00 2022-01-10 00:00:00 Outpatient Debra ANDERSON WOODS [facility] [id number] [facility] 2021-12-08 00:00:00 2021-12-08 00:00:00 Anisa Contreras [facility] 1.2.840.114 350.1.13.10 4.2.7.2.686 [id number] [facility] 2021-10-16 00:00:00 2021-10-16 00:00:00 OFFICE VISIT ESTAB PT LEVEL 4 STLMLC STLMLC [id number] [facility] 2021-10-11 06:36:00 2021-10-11 08:50:00 Hospital [facility] 1.2.840.114 350.1.13.10 4.2.7.2.686 [id number] [facility] 2021-10-11 06:36:00 2021-10-11 08:50:00 Outpatient DIVYA PIERSON [facility] OPH [id number] [facility] 2021-10-11 08:00:00 2021-10-11 08:34:00 Surgery [facility] 1.2.840.114 350.1.13.10 4.2.7.2.686 [id number] [facility] 2021-10-09 11:30:00 2021-10-09 11:30:00 Outpatient R DIVYA RUVALCABA [facility] [id number] [facility] 2021-10-08 00:00:00 2021-10-08 00:00:00 Orders Only Doctor Unassigned, [place] [facility] 1.2.840.114 350.1.13.10 4.2.7.2.686 [id number] [facility] 2021-09-13 07:19:00 2021-09-13 10:06:00 Hospital Encounter Iliana Divya [facility] 1.2.840.114 350.1.13.10 4.2.7.2.686 [id number] [facility] 2021-09-13 09:14:00 2021-09-13 09:51:00 Surgery Divya Ruvalcaba [facility] 1.2.840.114 350.1.13.10 4.2.7.2.686 [id number] [facility] 2021-09-11 15:00:00 2021-09-11 15:00:00 Outpatient R DIVYA RUVALCABA [facility] [id number] [facility] 2021-09-11 13:57:39 2021-09-11 14:12:39 Laboratory Only Only, Adc Test Divya Ruvalcaba [facility] 1.2.840.114 350.1.13.10 4.2.7.2.686 [id number] [facility] 2021-09-10 00:00:00 2021-09-10 00:00:00 Orders Only Doctor Unassigned, [place] [facility] 1.2.840.114 350.1.13.10 4.2.7.2.686 [id number] [facility] 2021-09-04 16:12:51 2021-09-04 16:27:51 Client Account Representative Visit Shayla, [facility] Divya Buckner [facility] 1..840.114 350.1.13.10 4.2.7.2.686 [id number] [facility] 2021-09-04 16:15:00 2021-09-04 16:15:00 Outpatient DIVYA PIERSON [facility] [id number] [facility] 2021-08-21 00:00:00 2021-08-21 00:00:00 OFFICE VISIT ESTAB PT LEVEL 4 STLMLC STLMLC [id number] [facility] 2021-07-12 00:00:00 2021-07-12 00:00:00 Refill Anderson Woods [facility] 1.840.114 350.1.13.10 4.2.7.2.686 [id number] [facility] 2021-07-10 13:10:23 2021-07-10 13:40:23 Office Visit Anderson Woods [facility] 1.840.114 350.1.13.10 4.2.7.2.686 [id number] [facility] 2021-07-10 13:00:00 2021-07-10 13:00:00 Outpatient R ANDERSON WOODS [facility] [id number] [facility] 2021-06-19 11:57:23 2021-06-19 13:30:49 Office Visit Anderson Woods [facility] 1.84.114 350.1.13.10 4.2.7.2.686 [id number] [facility] 2021-06-19 00:00:00 2021-06-19 00:00:00 Outpatient R ANDERSON WOODS [facility] [id number] [facility] 2021-06-13 00:00:00 2021-06-13 00:00:00 Case Management Anderson Woods [facility] 1.114 350.1.13.10 4.2.7.2.686 [id number] [facility] 2021-06-12 00:00:00 2021-06-12 00:00:00 Outpatient R ANDERSON WOODS [facility] [id number] [facility] 2021-06-05 00:00:00 2021-06-05 00:00:00 Orders Only Doctor Unassigned, [place] [facility] 1.114 350.1.13.10 4.2.7.2.686 [id number] [facility] 2021-06-04 00:00:00 2021-06-04 00:00:00 Case Management Anisa Jacob [facility] 1.114 350.1.13.10 4.2.7.2.686 [id number] [facility] 2021-05-30 10:39:57 2021-05-30 11:52:22 Office Visit [place] [facility] 1.114 350.1.13.10 4.2.7.2.686 [id number] [facility] 2021-05-30 11:00:00 2021-05-30 11:00:00 Outpatient R ANDERSON WOODS [facility] [id number] [facility] 2021-05-29 00:00:00 2021-05-29 00:00:00 Telephone Divya Cam [facility] 1.114 350.1.13.10 4.2.7.2.686 [id number] [facility] 2021-05-28 07:28:00 2021-05-28 16:00:00 Hospital Encounter Divya Cam [facility] 1.2.840.114 350.1.13.10 4.2.7.2.686 [id number] [facility] 2021-05-28 10:27:00 2021-05-28 12:52:00 Surgery Divya Cam [facility] 1.2.840.114 350.1.13.10 4.2.7.2.686 [id number] [facility] 2021-05-28 00:00:00 2021-05-28 00:00:00 Orders Only Doctor Unassigned, [place] [facility] 1.2.840.114 350.1.13.10 4.2.7.2.686 [id number] [facility] 2021-05-24 00:00:00 2021-05-24 00:00:00 OFFICE VISIT ESTAB PT LEVEL 4 STLMLC STLMLC [id number] [facility] 2021-05-17 14:18:00 2021-05-17 19:15:00 Hospital Encounter Anisa Jacob 1.2.840.1 [id number] 3.104.2.7 .3.214198 .[id number] [facility] 2021-05-17 18:49:43 2021-05-17 18:49:43 Anesthesia Event Patricia Martin Corina 1.2.840.1 10134.1.1 3.104.2.7 .3.164960 .8 [id number] [facility] 2021-05-17 00:00:00 2021-05-17 00:00:00 Orders Only Doctor Unassigned, [place] [facility] 1.2840.114 350.1.13.10 4.2.7.2.686 [id number] [facility] 2021-05-14 00:00:00 2021-05-14 00:00:00 Travel 1.2.840.1 [id number] 3.104.2.7 .3.762198 .8 1.2.840.114 350.1.13.10 4.2.7.3.698 [id number] [facility] 2021-04-26 00:00:00 2021-04-26 00:00:00 Outpatient STLMLC STLMLC [id number] [facility] 2021-04-24 08:26:32 2021-04-24 09:33:54 Office Visit Anisa Jacob 1.2.840.1 [id number] 3.104.2.7 .3.145361 .8 [id number] [facility] 2021-04-24 08:30:00 2021-04-24 08:30:00 Outpatient R ANISA JACOB [facility] [id number] [facility] 2021-04-24 00:00:00 2021-04-24 00:00:00 Travel 1.2.840.1 [id number] 3.104.2.7 .3.448662 .8 1.2.840.114 350.1.13.10 4.2.7.3.698 [id number] [facility] 2021-04-18 00:00:00 2021-04-18 00:00:00 Orders Only Doctor Unassigned, [place] 1.2.840.1 81706.1.1 3.104.2.7 .3.320670 .8 [id number] [facility] 2021-04-09 00:00:00 2021-04-09 00:00:00 Transition of Care Matt Benítez 1.2.840.1 63781.1.1 3.104.2.7 .3.840055 .8 [id number] [facility] 2021-04-05 22:55:00 2021-04-06 19:15:00 Outpatient X ANISA JACOB [facility] [id number] [facility] 2021-04-05 22:55:00 2021-04-06 19:15:00 Emergency TriplettSun kwong Anisa Jacob 1.2.840.1 26306.1.1 3.104.2.7 .3.650335 .8 [id number] [facility] 2021-04-05 00:00:00 2021-04-05 00:00:00 Travel 1.2.840.1 66624.1.1 3.104.2.7 .3.455511 .8 1.2.840.114 350.1.13.10 4.2.7.3.698 [id number] [facility] 2021-04-03 10:15:00 2021-04-03 10:15:00 Outpatient R ANISA JACOB [facility] [id number] [facility] 2021-03-30 08:57:04 2021-03-30 10:41:55 Office Visit Anisa Jacob 1.2.840.1 34308.1.1 3.104.2.7 .3.795819 .8 [id number] [facility] 2021-03-30 09:00:00 2021-03-30 09:00:00 Outpatient R ANISA JACOB [facility] [id number] [facility] 2021-03-30 00:00:00 2021-03-30 00:00:00 Orders Only Doctor Unassigned, [place] 1.2.840.1 89820.1.1 3.104.2.7 .3.500907 .8 [id number] [facility] 2021-03-30 00:00:00 2021-03-30 00:00:00 Travel 1.2.840.1 73426.1.1 3.104.2.7 .3.062820 .8 1.2.840.114 350.1.13.10 4.2.7.3.698 [id number] [facility] 2021-03-15 00:00:00 2021-03-15 00:00:00 Orders Only Doctor Unassigned, [place] [facility] 1.2.840.114 350.1.13.10 4.2.7.2.686 [id number] 2021-03-15 00:00:00 2021-03-15 00:00:00 Orders Only Doctor Unassigned, [place] 1.2.840.1 [id number] 3.104.2.7 .3.461298 .8 [id number] [facility] 2021-02-26 00:00:00 2021-02-26 00:00:00 Outpatient [facility] ST[facility]C [id number] [facility] 2021-02-19 00:00:00 2021-02-19 00:00:00 Outpatient [facility]MLC ST[facility]C [id number] [facility] 2021-02-19 00:00:00 2021-02-19 00:00:00 Orders Only Doctor Unassigned, [place] [facility] 1.2.840.114 350.1.13.10 4.2.7.2.686 [id number] [facility] 2021-02-16 00:00:00 2021-02-16 00:00:00 Outpatient STLMLC STLMLC [id number] [facility] 2021-02-15 00:00:00 2021-02-15 00:00:00 Outpatient STLMLC STLMLC [id number] [facility] 2019-01-21 10:45:00 2019-01-21 10:45:00 [facility]patient [facility] [id number] [facility] 2019-01-14 13:44:00 2019-01-14 13:44:00 [facility] [id number] [facility] 2018-08-07 11:01:00 2018-08-07 11:01:00 [facility] [id number] [facility] 2018-08-06 15:30:00 2018-08-06 15:30:00 [facility] [id number] [facility] [place] [facility] 2018-07-13 23:04:00 2018-07-13 23:04:00 [facility] [id number] [facility] 2018-07-09 10:00:00 2018-07-09 10:00:00 Outpatient [facility] [id number] [facility] 2018-04-09 21:34:00 2018-04-09 21:34:00 [facility] [id number] [facility] 2018-04-09 13:15:00 2018-04-09 13:15:00 Outpatient [facility] Medicine [facility] [id number] [facility] Results Test Description Test Time Test Comments Results Result Co mments Source GLUCOSE [id number] 11:47:00* Test Item Value Reference Range Interpretation Comme nts GLUCOSE BEDSIDE (test code = GLUBED) 132 MG/DL 70-110 H Performed by cer tified signal operator at [facility] HGB [id number] 09:33:00* Test Item Value Reference Range Interpretation Comme nts HEMOGLOBIN (test code = HGB) 7.3 g/dL 11.0-15.0 L HEMATOCRIT (test code = HCT) 22.4 % 33.0-45.0 L BASIC METABOLIC [id number] 05:23:00* Test Item Value Reference Range Interpretation Comme nts SODIUM (test code = NA) 142 mEq/L 134-147 N POTASSIUM (test code = K) 4.5 mEq/L 3.4-5.0 N CHLORIDE (test code = CL) 108 mEq/L 100-108 N CARBON DIOXIDE (test code = CO2) 24 mEq/l 21-33 N ANION GAP (test code = GAP) 14 0-20 N GLUCOSE (test code = GLU) 258 mg/dL 77-141 H BLOOD UREA NITROGEN (test code = BUN) 30 mg/dL 7-25 H GLOMERULAR FILTRATION RATE (test code = GFR) 44.8 80-90 L The Glomerular Filtration Rate is a calculated parameterbased on serum Creatinine, patient age and sex. GFR valuesless than 60 mL/min/1.73 square meters are indicative ofChronic Kidney Disease. Values less than 15 mL/min/1.73square meters indicate Kidney failure. The calculation forGFR is based on the CKD-EPI (202) calculation. This formulais race indifferent and is the recommended formula for GFRby the National Kidney Foundation for Adults.The GFR will not calculate if the sex is unknown or if thepatient's age is <18 years. CREATININE (test code = CREAT) 1.3 mg/dL 0.6-1.3 N CALCIUM (test code = CA) 8.0 mg/dL 8.0-10.5 N CBC W/AUTO [id number] 05:12:00* Test Item Value Reference Range Interpretation Comme nts WHITE BLOOD CELL (test code = WBC) 12.2 x10 3/uL 4.5-11.0 H RED BLOOD CELL (test code = RBC) 2.68 x10 6/uL 3.54-5.02 L HEMOGLOBIN (test code = HGB) 7.8 g/dL 11.0-15.0 L HEMATOCRIT (test code = HCT) 24.3 % 33.0-45.0 L MEAN CELL VOLUME (test code = MCV) 90.7 fL 81.0-99.0 N MEAN CELL HGB (test code = MCH) 29.1 pg 27.0-33.0 N MEAN CELL HGB CONCETRATION (test code = MCHC) 32.1 g/dL 33.0-37.0 L RED CELL DISTRIBUTION WIDTH CV (test code = RDW) 12.6 % 11.5-14.5 N RED CELL DISTRIBUTION WIDTH SD (test code = RDW-SD) 41.1 fL 37.0-54.0 N PLATELET COUNT (test code = PLT) 213 x10 3/uL 150-400 N MEAN PLATELET VOLUME (test code = MPV) 10.4 fL 7.0-9.0 H NEUTROPHIL % (test code = NT%) 88.1 % 56.0-77.0 H IMMATURE GRANULOCYTE % (test code = IG%) 0.3 % 0.0-2.0 N LYMPHOCYTE % (test code = LY%) 7.6 % 14.0-32.0 L MONOCYTE % (test code = MO%) 3.9 % 4.8-9.0 L EOSINOPHIL % (test code = EO%) 0.0 % 0.3-3.7 L BASOPHIL % (test code = BA%) 0.1 % 0.0-2.0 N NUCLEATED RBC % (test code = NRBC%) 0.0 % 0-0 N NEUTROPHIL # (test code = NT#) 10.77 x10 3/uL 2.0-7.6 H IMMATURE GRANULOCYTE # (test code = IG#) 0.04 x10 3/uL 0.00-0.03 H LYMPHOCYTE # (test code = LY#) 0.93 x10 3/uL 1.0-3.8 L MONOCYTE # (test code = MO#) 0.48 x10 3/uL 0.1-0.8 N EOSINOPHIL # (test code = EO#) 0.00 x10 3/uL 0.0-0.2 N BASOPHIL # (test code = BA#) 0.01 x10 3/uL 0.0-0.2 N NUCLEATED RBC # (test code = NRBC#) 0.00 x10 3/uL 0.0-0.1 N GLUCOSE [id number] 02:26:00* Test Item Value Reference Range Interpretation Comme [facility] GLUCOSE BEDSIDE (test code = GLUBED) 215 MG/DL 70-110 H Performed by cer tified signal operator at [facility] GLUCOSE [id number] 20:42:00* Test Item Value Reference Range Interpretation Comme [facility] GLUCOSE BEDSIDE (test code = GLUBED) 222 MG/DL 70-110 H Performed by cer tified signal operator at [facility] POC ARTERIAL BLOOD [id number] 20:28:00* Test Item Value Reference Range Interpretation Comme [facility] POC ARTERIAL BLOOD GAS PH (test code = POCPHA) 7.347 7.35-7.45 L POC ARTERIAL BLOOD GAS PCO2 (test code = YQFHNM2P) 45.5 mmHg 35.0-45 H POC TCO2 ARTERIAL (test code = POCTCO2) 26.4 22-29 N POC ARTERIAL BLOOD GAS PO2 (test code = UTKUE9I) 85.9 mmHg 80-100.0 N POC HCO3 ARTERIAL (test code = TFKTPX0O) 25.0 MMOL/L 22.0-26.0 N POC BASE EXCESS (test code = POCBEA) -0.8 MMOL/L See_Comment L [Automated messa ge] The system which generated this result transmitted reference range: 0-+/-4. The reference range was not used to interpret this result as normal/abnormal. POC O2 SATURATION (test code = POCO2S) 95.9 % 90-100 N FIO2 (test code = FIO2A) 21 % PaO2/FiO2 (test code = TLY6OIU1) 409.04 mm/Hg ABG DELIVERY (test code = ERIN) Room Air ABG TEMPERATURE (test code = TEMPA) 97.9 F ABG SITE (test code = SITEA) Art Line BASIC METABOLIC [id number] 20:28:00* Test Item Value Reference Range Interpretation Comme nts SODIUM (test code = NA/ABG) 142 mmol/L 134-147 N POTASSIUM (test code = K/ABG) 4.2 mmol/L 3.4-5.0 N CHLORIDE (test code = CL/ABG) 108 mmol/L 100-108 N CREATININE ABG (test code = CREAABG) 1.1 mg/dL 0.6-1.3 N POC IONIZED CALCIUM (test co de = POCCA) 1.24 MMOL/L 1.12-1.32 N POC GLUCOSE (test code = POCGLU) 292 MG/DL 70-110 H HEMOGLOBIN [id number] 20:28:00* Test Item Value Reference Range Interpretation Comme nts HEMOGLOBIN ABG (test code = HGB/ABG) 8.5 G/DL 11.0-15.0 L [id number] 20:28:00* Test Item Value Reference Range Interpretation Comme nts HEMATOCRIT (test code = HCT/ABG) 25 % 33-45 L POC LACTIC [id number] 20:28:00* Test Item Value Reference Range Interpretation Comme nts POC LACTIC ACID (test code = POCLAC) 1.0 mmol/l 0.9-1.7 N BASIC METABOLIC [id number] 18:27:00* Test Item Value Reference Range Interpretation Comme nts SODIUM (test code = NA) 141 mEq/L 134-147 N POTASSIUM (test code = K) 4.4 mEq/L 3.4-5.0 N CHLORIDE (test code = CL) 107 mEq/L 100-108 N CARBON DIOXIDE (test code = CO2) 26 mEq/l 21-33 N ANION GAP (test code = GAP) 12 0-20 N GLUCOSE (test code = GLU) 238 mg/dL 77-141 H BLOOD UREA NITROGEN (test code = BUN) 22 mg/dL 7-25 N GLOMERULAR FILTRATION RATE (test code = GFR) 54.7 80-90 L The Glomerular Filtration Rate is a calculated parameterbased on serum Creatinine, patient age and sex. GFR valuesless than 60 mL/min/1.73 square meters are indicative ofChronic Kidney Disease. Values less than 15 mL/min/1.73square meters indicate Kidney failure. The calculation forGFR is based on the CKD-EPI (2020) calculation. This formulais race indifferent and is the recommended formula for GFRby the National Kidney Foundation for Adults.The GFR will not calculate if the sex is unknown or if thepatient's age is <18 years. CREATININE (test code = CREAT) 1.1 mg/dL 0.6-1.3 N CALCIUM (test code = CA) 8.1 mg/dL 8.0-10.5 N HGB [id number] 18:23:00* Test Item Value Reference Range Interpretation Comme nts HEMOGLOBIN (test code = HGB) 8.3 g/dL 11.0-15.0 L HEMATOCRIT (test code = HCT) 24.6 % 33.0-45.0 L [id number] 17:07:00* Test Item Value Reference Range Interpretation Comme nts ACT-ISTAT (test code = ACTI) 279 SEC 74-137 H Performed by cer tified signal operator at [facility] LIPID PROFILE (CORONARY RISK)2024-11-15 07:00:00* Test Item Value Reference Range Interpretation Comme nts TRIGLYCERIDES (test code = TRIG) 308 mg/dL 40-150 H CHOLESTEROL (test code = CHOL) 234 mg/dL <200 H CHOLESTEROL/HDL RATIO (test code = CHOLHDL) 5.81 RATIO 3.27-4.44 H RISK ASSOCIATED WITH CHOL/HDL RATIOS: RISK MALE FEMALE1/2 AVERAGE 3.43 3.27AVERAGE 4.97 4.442X AVERAGE 9.55 7.053X AVERAGE 23.39 11.04 NOTE THAT THE REFERENCE VALUE IS RELATEDTO RISK LEVELS RECOMMENDED BY THE NATL.HEART, LUNG, AND BLOOD INST. HDL CHOLESTEROL (test code = HDL) 40.3 MG/DL 40-60 N HDL Interpreta tion < 40.0 mg/dL Low (undesirable, high risk)> 60.0 mg/dL High (desirable, low risk) Reference interval for healthy adults was established by theNational Cholesterol Education Program (NCEP). LIPOPROTEIN LDL (test code = LDL) 129.0 mg/dL 0-100 H <100 [id number] 0-129 NEAR OPTIMAL/ABOVE [id number] HIGH>ZA=954 VERY HIGH*Guidelines provided by the National Cholesterol EducationProgram Adult Treatment Panel III GLUCOSE [id number] 06:24:00* Test Item Value Reference Range Interpretation Comme nts GLUCOSE BEDSIDE (test code = GLUBED) 230 MG/DL 70-110 H Performed by cer tified signal operator at [facility] UA RFLX MICR CULT IF [id number] 13:14:00* Test Item Value Reference Range Interpretation Comme nts UA COLOR (test code = COLU) YELLOW YEL/STRAW UA APPEARANCE (test code = APPU) CLEAR CLEAR UA GLUCOSE DIPSTICK (test co de = DGLUU) NEGATIVE NEGATIVE UA BILIRUBIN DIPSTICK (test code = BILU) NEGATIVE NEGATIVE UA KETONE DIPSTICK (test cod e = KETU) NEGATIVE NEGATIVE UA SPECIFIC GRAVITY (test co de = SGU) 1.015 1.005-1.030 N UA BLOOD DIPSTICK (test code = ALYSSA) NEGATIVE NEGATIVE UA PH DIPSTICK (test code = STUART) 5.0 5.0-7.0 N UA PROTEIN DIPSTICK (test co de = PROU) 2+ NEGATIVE A UA UROBILINIOGEN DIPSTICK (t est code = URO) 0.2 mg/dL 0.2-1.0 UA NITRITE DIPSTICK (test co de = FAROOQ) NEGATIVE NEGATIVE UA LEUKOCYTE ESTERASE DIPSTI CK (test code = LEUU) 1+ NEGATIVE A UA WBC (test code = WBCU) 4-9 WBC/HPF 0-3 A UA RBC (test code = RBCU) 0-3 RBC/HPF 0-3 UA WBC NO REFLEX (test code = WBCUCL) 4-9 WBC/HPF 0-3 A UA BACTERIA (test code = BACU) TRACE /HPF NONE SEEN UA SQUAMOUS CELLS (test code = SQU) 0-5 /HPF NONE SEEN UA HYALINE CAST (test code = HYALU) >20 /LPF NONE SEEN UA MUCUS (test code = MUCU) 1+ /LPF NONE SEEN Indication for culture: RiskForSepsis-no oth srcSpecimen Description: CLEAN CATCHCOMPREHENSIVE METABOLIC [id number] 13:12:00* Test Item Value Reference Range Interpretation Comme nts SODIUM (test code = NA) 139 mEq/L 134-147 N POTASSIUM (test code = K) 4.2 mEq/L 3.4-5.0 N CHLORIDE (test code = CL) 106 mEq/L 100-108 N CARBON DIOXIDE (test code = CO2) 30 mEq/l 21-33 N ANION GAP (test code = GAP) 7 0-20 N GLUCOSE (test code = GLU) 118 mg/dL 77-141 N BLOOD UREA NITROGEN (test code = BUN) 20 mg/dL 7-25 N GLOMERULAR FILTRATION RATE (test code = GFR) 54.7 80-90 L The Glomerular Filtration Rate is a calculated parameterbased on serum Creatinine, patient age and sex. GFR valuesless than 60 mL/min/1.73 square meters are indicative ofChronic Kidney Disease. Values less than 15 mL/min/1.73square meters indicate Kidney failure. The calculation forGFR is based on the CKD-EPI (202) calculation. This formulais race indifferent and is the recommended formula for GFRby the National Kidney Foundation for Adults.The GFR will not calculate if the sex is unknown or if thepatient's age is <18 years. CREATININE (test code = CREAT) 1.1 mg/dL 0.6-1.3 N TOTAL PROTEIN (test code = PROT) 8.1 g/dL 6.4-8.2 N ALBUMIN (test code = ALB) 3.80 g/dL 3.4-5.0 N CALCIUM (test code = CA) 9.5 mg/dL 8.0-10.5 N BILIRUBIN TOTAL (test code = BILT) 1.10 mg/dL 0.0-1.0 H SGOT/AST (test code = AST) 20 IUnit/L 8-34 N SGPT/ALT (test code = ALT) 12 IUnit/L 10-49 N ALKALINE PHOSPHATASE TOTAL (test code = ALKP) 75 IUnit/L 20-125 N CBC W/AUTO [id number] 13:11:00* Test Item Value Reference Range Interpretation Comme nts WHITE BLOOD CELL (test code = WBC) 7.1 x10 3/uL 4.5-11.0 N RED BLOOD CELL (test code = RBC) 3.49 x10 6/uL 3.54-5.02 L HEMOGLOBIN (test code = HGB) 10.0 g/dL 11.0-15.0 L HEMATOCRIT (test code = HCT) 31.6 % 33.0-45.0 L MEAN CELL VOLUME (test code = MCV) 90.5 fL 81.0-99.0 N MEAN CELL HGB (test code = MCH) 28.7 pg 27.0-33.0 N MEAN CELL HGB CONCETRATION (test code = MCHC) 31.6 g/dL 33.0-37.0 L RED CELL DISTRIBUTION WIDTH CV (test code = RDW) 12.4 % 11.5-14.5 N RED CELL DISTRIBUTION WIDTH SD (test code = RDW-SD) 40.9 fL 37.0-54.0 N PLATELET COUNT (test code = PLT) 274 x10 3/uL 150-400 N MEAN PLATELET VOLUME (test c ode = MPV) 10.5 fL 7.0-9.0 H NEUTROPHIL % (test code = NT%) 64.5 % 56.0-77.0 N IMMATURE GRANULOCYTE % (test code = IG%) 0.1 % 0.0-2.0 N LYMPHOCYTE % (test code = LY%) 27.5 % 14.0-32.0 N MONOCYTE % (test code = MO%) 5.5 % 4.8-9.0 N EOSINOPHIL % (test code = EO%) 2.0 % 0.3-3.7 N BASOPHIL % (test code = BA%) 0.4 % 0.0-2.0 N NUCLEATED RBC % (test code = NRBC%) 0.0 % 0-0 N NEUTROPHIL # (test code = NT#) 4.56 x10 3/uL 2.0-7.6 N IMMATURE GRANULOCYTE # (test code = IG#) 0.01 x10 3/uL 0.00-0.03 N LYMPHOCYTE # (test code = LY#) 1.95 x10 3/uL 1.0-3.8 N MONOCYTE # (test code = MO#) 0.39 x10 3/uL 0.1-0.8 N EOSINOPHIL # (test code = EO#) 0.14 x10 3/uL 0.0-0.2 N BASOPHIL # (test code = BA#) 0.03 x10 3/uL 0.0-0.2 N NUCLEATED RBC # (test code = NRBC#) 0.00 x10 3/uL 0.0-0.1 N PROTHROMBIN [id number] 13:02:00* Test Item Value Reference Range Interpretation Comme nts PROTHROMBIN TIME PATIENT (test code = PTP) 10.9 SECONDS 9.3-12.9 N INTERNATIONAL NORMAL RATIO (test code = INR) 1.0 0.8-1.2 N TARGET INR BY INDICATION Indication INR1. Prophylaxis of venous thrombosis 2.0 - 3.0 (orthopedic surgery), Prophylaxis of venous thrombosis (other than high-risk surgery), Treatment of Deep Vein Thrombosis/Pulmonary Embolism, Prevention of systemic embolism - Tissue heart valves, Acute Myocardial Infarction (to prevent systemic embolism), Valvular heart disease, Atrial Fibrillation, Bileaflet mechanical valve in aortic position.2. Mechanical prosthetic valves (high risk), 2.5 - 3.5 Presence of Lupus Anticoagulant or Antiphospholipid Antibodies, Prevention of systemic embolism - Acute Myocardial Infarction (to prevent recurrent infarct). THROMBOPLASTIN TIME [id number] 13:02:00* Test Item Value Reference Range Interpretation Comme nts THROMBOPLASTIN TIME PARTIAL (test code = PTT) 27.7 Seconds 25.0-39.5 N Therapeutic Rang e: 58.8 - 96.0 Seconds Effective 09/24/2024 HEMOGLOBIN [id number] 00:00:00* Test Item Value Reference Range Interpretation Comme nts A1C (test code = 4548-4) 8.3 CBC W/AUTO [id number] 00:00:00* Test Item Value Reference Range Interpretation Comme nts NUCLEATED RBCS (test code = 41538-8) 0.0 /100 WBC'S See_Comment [Automated messa ge] The system which generated this result transmitted reference range: 0.0 /100 WBC'S. The reference range was not used to interpret this result as normal/abnormal. ABSOLUTE EOSINOPHILS (test code = 11381-5) 0.12 K/UL See_Comment [Automated messa ge] The system which generated this result transmitted reference range: 0.00-0.50 K/UL. The reference range was not used to interpret this result as normal/abnormal. ABSOLUTE LYMPHOCYTES (test code = 69657-0) 2.17 K/UL See_Comment [Automated messa ge] The system which generated this result transmitted reference range: 1.00-4.00 K/UL. The reference range was not used to interpret this result as normal/abnormal. ABSOLUTE MONOCYTES (test code = 13740-3) 0.48 K/UL See_Comment [Automated messa ge] The system which generated this result transmitted reference range: 0.20-1.00 K/UL. The reference range was not used to interpret this result as normal/abnormal. ABSOLUTE NEUTROPHILS (test code = 04623-3) 5.88 K/UL See_Comment [Automated messa ge] The system which generated this result transmitted reference range: 1.50-7.50 K/UL. The reference range was not used to interpret this result as normal/abnormal. BASOPHILS (test code = 60588-7) 0.6 % EOSINOPHILS (test code = 87463-7) 1.4 % HEMATOCRIT (test code = 67554-9) 35.7 % See_Comment [Automated messa ge] The [...] result as normal/abnormal. LYMPHOCYTES (test code = 79543-6) 24.9 % MCH (test code = 90432-8) 29.8 PG See_Comment [Automated messa ge] The system which generated this result transmitted reference range: 25.0-33.0 PG. The reference range was not used to interpret this result as normal/abnormal. MCHC (test code = 70896-0) 34.2 G/DL See_Comment [Automated messa ge] The system which generated this result transmitted reference range: 31.0-36.0 G/DL. The reference range was not used to interpret this result as normal/abnormal. MCV (test code = 09370-3) 87.1 fL See_Comment [Automated messa ge] The system which generated this result transmitted reference range: 80.0-99.0 fL. The reference range was not used to interpret this result as normal/abnormal. MONOCYTES (test code = 59421-3) 5.5 % NEUTROPHILS (test code = 91296-3) 67.4 % PLATELET COUNT (test code = 10828-1) 274 K/UL See_Comment [Automated messa ge] The system which generated this result transmitted reference range: 130-400 K/UL. The reference range was not used to interpret this result as normal/abnormal. RBC (test code = 44929-4) 4.10 M/UL See_Comment [Automated messa ge] The system which generated this result transmitted reference range: 3.80-5.40 M/UL. The reference range was not used to interpret this result as normal/abnormal. RDW (test code = 64438-9) 12.9 % See_Comment [Automated messa ge] The system which generated this result transmitted reference range: 11.5-15.0 %. The reference range was not used to interpret this result as normal/abnormal. WBC (test code = 77304-5) 8.7 K/UL See_Comment [Automated messa ge] The system which generated this result transmitted reference range: 3.5-11.0 K/UL. The reference range was not used to interpret this result as normal/abnormal. HEMOGLOBIN [id number] 00:00:00* Test Item Value Reference Range Interpretation Comme nts A1C (test code = 4548-4) 14.0 HEMOGLOBIN [id number] 00:00:00* Test Item Value Reference Range Interpretation Comme nts A1C (test code = 4548-4) 10.8 HEMOGLOBIN [id number] 00:00:00* Test Item Value Reference Range Interpretation Comme nts A1C (test code = 4548-4) 8.2% HEMOGLOBIN [id number] 00:00:00* Test Item Value Reference Range Interpretation Comme nts A1C (test code = 4548-4) 8.6 DEXA, BONE DENSITY AXIAL SKELEDEXA, BONE DENSITY AXIAL KUHPL5A SCR TANYA BILAT W/CAD3D SCR TANYA BILAT W/CAD
[2024-11-18 04:59] LABS: Absolute Eosinophils 0.2 K/uL (0-0.5); Absolute Lymphocytes (CBC) 1.8 K/uL (0.7-4.9); Absolute Monocytes 0.9 K/uL (0.1-1.3); Absolute Neutrophil 8.8 K/uL (1.8-8.0); Basophils % 0.3 % (0-1.3); Eosinophils % 1.6 % (0-4.4); Hematocrit 21.5 % (36.0-45.0); Hemoglobin 7.4 g/dL (12.0-15.0); Lymphocytes % 15.4 % (15.3-44.8); MCH 29.7 pg (27.0-35.0); MCHC 34.1 g/dL (32.0-36.0); MPV 8.3 fL (7.6-11.3); Monocytes % 7.8 % (3.3-12.3); Neutrophils % 74.9 % (41.7-73.7); Nucleated Red Blood Cells % 0.1 % (0-0); Platelets 216 thou/uL (152-406); RBC Red Blood Cell Count 2.47 M/uL (3.86-4.86); Red Cell Distribution Width 12.9 % (12.1-15.2)
[2024-11-18 05:06] LABS: PT Prothrombin Time 10.1 SECONDS (9.4-12.5); Protime INR 0.9
[2024-11-18 05:21] LABS: ALT/SGPT 15 U/L (13-56); AST/SGOT 21 U/L (15-37); Albumin 2.9 g/dL (3.4-5.0); Albumin/Globulin Ratio 0.7 (1.1-1.8); Alkaline Phosphatase 72 U/L (45-117); Anion Gap 6.6 mEq/L (5.0-15.0); BUN Blood Urea Nitrogen 22 mg/dL (7-18); Bicarbonate 28 mEq/L (21-32); Bilirubin Total 0.4 mg/dL (0.2-1.0); Globulin 4.1 g/dL (2.3-3.5); Glomerular Filtration Rate 68 ml/min (=/>90); Glucose Level 241 mg/dL (74-106); NT PRO-BNP 3015 pg/mL (<125); Potassium 3.6 mEq/L (3.5-5.1); Sodium Level 138 mEq/L (136-145)
[2024-11-18 05:24] LABS: Bilirubin Direct < 0.2 mg/dL (0-0.2); Bilirubin Indirect, Calculated 0.2 mg/dL (0.2-0.8)
[2024-11-18 05:25] LABS: Troponin High Sensitivity 1061.3 pg/mL (<58.9)
--- NOTE | 2024-11-18 05:36 | EDPHYS ---
Physician Documentation [facility] Name: Myriam Bryant Age: 68 yrs Sex: Female : 1955 Arrival Date: 11/18/2024 Time: 04:01 Bed 5 Private MD: ED Physician Jamil Mayers HPI: 11/18 05:30 This 68 yrs old Female presents to ER via Wheelchair with complaints of sp4 Weakness, Numbness Of Hand, Headache. 05:30 Patient is a very pleasant 60-year-old female with history of arthritis diabetes sp4 hyperlipidemia hypertension. Patient has had left carotid endarterectomy at the [facility] 11/15/2024. Patient was discharged home 11/16/2024. Patient now presents with generalized weakness, bilateral hand numbness and headache. Also pain of carotid endarterectomy site.. Historical: - PMHx: 04:24 Arthritis; Diabetes - NIDDM; Hyperlipidemia; Hypertensive disorder; kd3 - Immunization history:: Adult Immunizations up to date. - Infectious Disease History:: Denies. - Social history:: Smoking status: Patient denies any tobacco usage or history of. - Family history:: not pertinent. - Hospitalizations: : No recent hospitalization is reported. as above, [facility] for carotid endarterectomy on 11/15/2024. ROS: 05:30 Constitutional: Negative for fever, chills, and weight loss, positive generalized sp4 weakness, positive headache, positive bilateral hand numbness 05:30 All other systems are negative, Exam: 05:30 Constitutional: Patient is frail elderly female, ill-appearing, pale but not toxic sp4 appearing Head/Face: Normocephalic, atraumatic. Eyes: Pupils equal round and reactive to light, extra-ocular motions intact. Lids and lashes normal. Conjunctiva and sclera are not injected. Cornea within normal limits. Periorbital areas with no swelling, redness, or edema. ENT: Nares patent. No nasal discharge, no septal abnormalities noted. Tympanic membranes are normal and external auditory canals are clear. Oropharynx with no redness, swelling, or masses, exudates, or evidence of obstruction, uvula midline. Mucous membranes moist. Neck: Trachea midline, no thyromegaly or masses palpated, and no cervical lymphadenopathy. Supple, full range of motion without nuchal rigidity, or vertebral point tenderness. Patient has left carotid endarterectomy postop incision which is clean dry and intact. Chest/axilla: Normal chest wall appearance and motion. Nontender with no deformity. No lesions are appreciated. Cardiovascular: Regular rate and rhythm with a normal S1 and S2. No gallops, murmurs, or rubs. Normal PMI, no JVD. No pulse deficits. Respiratory: Lungs have equal breath sounds bilaterally, clear to auscultation and percussion. No rales, rhonchi or wheezes noted. No increased work of breathing, no retractions or nasal flaring. Abdomen/GI: Soft, with normal bowel sounds. No distension or tympany. No guarding or rebound. No evidence of tenderness throughout. Back: No spinal tenderness. No costovertebral tenderness. Skin: Warm, dry with normal turgor. Normal color with no rashes, no lesions, and no evidence of cellulitis. MS/ Extremity: Pulses equal, no cyanosis. Neurovascular intact. Full, normal range of motion. Neuro: Awake and alert, GCS 15, oriented to person, place, time, and situation. Cranial nerves II-XII grossly intact. Motor strength 5/5 in all extremities. Sensory grossly intact. Psych: Awake, alert, with orientation to person, place and time. Behavior, mood, and affect are within normal limits 05:30 ECG was reviewed by the Attending Physician. EKG at 0 439 normal sinus rhythm rate 78. Vital Signs: 04:19 BP 178 / 63; Pulse 80; Resp 19; Temp 98.6; Pulse Ox 99% on R/A; Weight 41.28 kg; Height kd3 4 ft. 11 in. ; 04:48 BP 175 / 60; Pulse 80; Resp 18; Pulse Ox 100% ; dd2 05:32 BP 173 / 62; Pulse 83; Resp 16; Pulse Ox 98% on R/A; dd2 05:45 BP 172 / 55; Pulse 81; Resp 15; Pulse Ox 99% on R/A; dd2 06:30 BP 154 / 59; Pulse 90; Resp 16; Pulse Ox 97% on R/A; dd2 07:00 BP 156 / 58; Pulse 90; Resp 17; ll1 07:45 BP 154 / 56; Pulse 88; Resp 17; Pulse Ox 97% ; Pain 8/10; ll1 04:19 Body Mass Index 18.38 (41.28 kg, 149.86 cm) kd3 07:45 Pain Scale: Adult ll1 NIH Stroke Scale Scores: 04:45 NIHSS Score: 0 dd2 05:30 NIHSS Score: 0 sp4 Finn Coma Score: 04:42 Eye Response: to voice(3). Motor Response: obeys commands(6). Verbal Response: dd2 oriented(5). Total: 14. 05:30 Eye Response: spontaneous(4). Motor Response: obeys commands(6). Verbal Response: sp4 oriented(5). Total: 15. MDM: 04:10 Medical Screening Exam initiated sp4 04:39 Data reviewed: vital signs, nurses notes, old medical records, lab test result(s), EKG, sp4 radiologic studies, CT scan, plain films. Consideration of Admission/Observation Escalation of care including admission/observation considered. Management of patient was discussed with the following: Refuge Worker: [facility] accepting MD. ED course: Stable for transfer. Troponin is elevated EKG has no signs of STEMI. Also postoperative left carotid endarterectomy pain, headache generalized weakness. Will initiate heparin infusion and bolus.. 06:09 ED course: EXAM DESCRIPTION: CT of the head without contrast CLINICAL HISTORY: sp4 DIZZINESS COMPARISON: 01/07/2024 TECHNIQUE: Axial CT of the head obtained from the skull apex to the skull base without contrast. This exam was performed according to our departmental dose-optimization program, which includes automated exposure control, adjustment of the mA and/or kV according to patient size and/or use of iterative reconstruction technique. FINDINGS: No acute intracranial hemorrhage identified. No mass, mass effect, shift of the midline, abnormal extra-axial fluid collection or CT evidence of acute ischemic change identified. The ventricular system and sulcal spaces are age appropriate. Scattered areas of hypodensity throughout the supratentorial white matter are nonspecific and may be related to chronic small vessel ischemic change. The visualized paranasal sinuses and the mastoids are clear. No skull fracture identified. Visualized orbits and globes are unremarkable. Atherosclerotic calcification of the intracranial internal carotid arteries. IMPRESSION: 1. No acute intracranial abnormality by CT criteria. . ED course: CLINICAL HISTORY: Chest pain. COMPARISON: XR Chest 04/29/2024. TECHNIQUE: XR CHEST 1 VIEW 11/18/2024 4:09 AM BIOMEDICAL PHOTOGRAPHER FINDINGS: Cardiac silhouette is normal in size. Lungs are clear without consolidation, atelectasis, mass or edema. There is no pleural effusion. There is no pneumothorax. There are no acute osseous findings. IMPRESSION: Clear lungs. Electronically signed by: Francisco Silva MD 11/18/2024 05:38 AM. 11/19 06:33 Data reviewed: radiologic studies. 4 11/18 04:09 Order name: Basic Metabolic Panel; Complete Time: 05: 4 11/18 04:09 Order name: CBC with Diff; Complete Time: 05: 4 11/18 04:09 Order name: LFT's; Complete Time: 05: 4 11/18 04:09 Order name: Magnesium; Complete Time: 05: 4 11/18 04:09 Order name: NT PRO-BNP; Complete Time: 05: 4 11/18 04:09 Order name: PT-INR; Complete Time: 05: 4 11/18 04:09 Order name: Troponin HS; Complete Time: 05: 4 11/18 04:09 Order name: XRAY Chest (1 view); Complete Time: 06:33 4 11/18 04:10 Order name: CT Head Brain wo Cont; Complete Time: 06:33 4 11/18 04:09 Order name: Cardiac monitoring; Complete Time: 04:4 11/18 04:09 Order name: EKG - Nurse/Tech; Complete Time: 04:42 4 11/18 04:09 Order name: IV Saline Lock; Complete Time: 04:42 4 11/18 04:09 Order name: Labs collected and sent; Complete Time: 04:42 4 11/18 04:09 Order name: O2 Per Protocol; Complete Time: 04: 4 11/18 04:09 Order name: O2 Sat Monitoring; Complete Time: 04:22 4 EC/19 04:39 Rate is 78 beats/min. Rhythm is regular, Normal Sinus Rhythm. QRS [place] is Normal. MA sp4 interval is normal. QRS interval is normal. QT interval is normal. No Q waves. T waves are Normal. No ST changes noted. Clinical impression: No evidence of ischemia. Interpreted by me. Reviewed by me. Administered Medications: 05:47 CANCELLED (Physician Discretion): Heparin (SC Drip) - ([id number] units, x3o705 ml) sp4 12 units/kg/hr IV at calculated rate Per protocol; Max initial rate 1000 units/hr 05:48 CANCELLED (Physician Discretion): Heparin (SC-Bolus No thrombolytic) - [id number] sp4 units/kg IVP once; Max 5000 units 06:11 Drug: NS 0.9% IV 1000 ml IV at 125 ml/hr once; to be given as a bolus over 60 minutes dd2 Route: IV; Rate: 125 ml/hr; Site: right upper arm; 06:26 Follow up: Response: Medication administered at discharge. dd2 06:53 Follow up: IV Status: Infusion continued upon transfer dd2 06:11 Drug: Lovenox Sub-Q 40 mg Sub-Q once Route: Sub-Q; Site: abdomen; dd2 06:26 Follow up: Response: No adverse reaction dd2 06:12 Drug: fentaNYL (PF) IVP 25 mcg IVP once Route: IVP; Site: right upper arm; dd2 06:27 Follow up: Response: No adverse reaction dd2 06:12 Drug: Ondansetron IVP 4 mg IVP once; over 2 minutes Route: IVP; Site: right upper arm; dd2 06:27 Follow up: Response: No adverse reaction dd2 06:12 Drug: NS 0.9% IV 500 ml 500 ml IV at 1 bolus once; to be given as a bolus over 30 dd2 minutes Volume: 500 ml; Route: IV; Rate: 1 bolus; Site: right upper arm; 06:27 Follow up: Response: No adverse reaction dd2 06:42 Follow up: IV Status: Completed infusion; IV Intake: 500ml dd2 07:48 CANCELLED (Physician Discretion): fentanyl (pf)25 mcg IVP once sp4 07:50 Drug: Ondansetron IVP 4 mg IVP once; over 2 minutes Route: IVP; Site: right antecubital;ll1 07:55 Follow up: Response: No adverse reaction ll1 07:50 Drug: fentaNYL (PF) IVP 50 mcg IVP once Route: IVP; Site: right antecubital; ll1 07:55 Follow up: Response: No adverse reaction; Pain is decreased; RASS: Alert and Calm (0) ll1 Point of Care Testin:54 unkown, shift nurse manager ll1 Ranges: Critical Glucose Levels:Adult <50 mg/dl or >400 mg/dl <40 mg/dl or >180 mg/dl Disposition Summary: 11/18/24 05:35 Transfer Ordered Notes: Transfer Location: [facility] sp4 Reason: Higher level of care sp4 Condition: Stable sp4 Problem: new sp4 Symptoms: have improved sp4 Accepting Physician: [facility] attending(11/18/24 07:55) ll1 Diagnosis - Subsequent non-ST elevation (NSTEMI) myocardial infarction sp4 - NSTEMI, postoperative neck pain, acute headache, generalized weakness sp4 Forms: - Medication Reconciliation Form sp4 - SBAR form sp4 NIH Stroke Scale - NIH Stroke Score Date: 11/18/2024 Time: 04:45 Total Score = 0 10. Dysarthria (speech clarity - read or repeat words) - 0(Normal) 11. Extinction and Inattention (visual/tactile/auditory/spatial/personal) - 0(No abnormality) 1a. Level of Consciousness (LOC) - 0(Alert) 1b. Level of Consciousness (LOC) (Month \T\ Age) - 0(Both) 1c. LOC Commands (Open \T\ Closes Eyes/Distribution Center Supervisor) - 0(Both) 2. Best Gaze (Lateral Gaze Paresis) - 0(Normal) 3. Visual Field Loss - 0(No visual loss) 4. Facial Palsy - 0(Normal) 5a. Left Arm: Motor (10-second hold) - 0(No drift) 5b. Right Arm: Motor (10-second hold) - 0(No drift) 6a. Left Leg: Motor (5-second hold - always test supine) - 0(No drift) 6b. Right Leg: Motor (5-second hold - always test supine) - 0(No drift) 7. Limb Ataxia (finger/nose \T\ heel/swann - test with eyes open) - 0(Absent) 8. Sensory Loss (pinprick arms/legs/face) - 0(Normal) 9. Best Language: Aphasia (description/naming/reading) - 0(No aphasia) Initials: dd2 NIH Stroke Scale - NIH Stroke Score Date: 11/18/2024 Time: 05:30 Total Score = 0 10. Dysarthria (speech clarity - read or repeat words) - 0(Normal) 11. Extinction and Inattention (visual/tactile/auditory/spatial/personal) - 0(No abnormality) 1a. Level of Consciousness (LOC) - 0(Alert) 1b. Level of Consciousness (LOC) (Month \T\ Age) - 0(Both) 1c. LOC Commands (Open \T\ Closes Eyes/Distribution Center Supervisor) - 0(Both) 2. Best Gaze (Lateral Gaze Paresis) - 0(Normal) 3. Visual Field Loss - 0(No visual loss) 4. Facial Palsy - 0(Normal) 5a. Left Arm: Motor (10-second hold) - 0(No drift) 5b. Right Arm: Motor (10-second hold) - 0(No drift) 6a. Left Leg: Motor (5-second hold - always test supine) - 0(No drift) 6b. Right Leg: Motor (5-second hold - always test supine) - 0(No drift) 7. Limb Ataxia (finger/nose \T\ heel/swann - test with eyes open) - 0(Absent) 8. Sensory Loss (pinprick arms/legs/face) - 0(Normal) 9. Best Language: Aphasia (description/naming/reading) - 0(No aphasia) Initials: sp4 Signatures: Dispatcher [employer] EDMS Lynn Trevizo, KASH RN ll1 Jacy Kendall, KASH RN kd3 Jamil Mayers MD MD sp4 MAUREEN BARAJAS RN RN dd2 Corrections: (The following items were deleted from the chart) 04:10 04:10 BASIC METABOLIC PANEL+C.LAB.BRZ ordered. EDMS EDMS 04:10 04:10 CBC+H.LAB.BRZ ordered. EDMS EDMS 04:10 04:10 HEPATIC FUNCTION+C.LAB.BRZ ordered. EDMS EDMS 04:10 04:10 MAGNESIUM+C.LAB.BRZ ordered. EDMS EDMS 04:10 04:10 PROBNP+C.LAB.BRZ ordered. EDMS EDMS 04:10 04:10 PROTIME (+INR)+COAG.LAB.BRZ ordered. EDMS EDMS 04:10 04:10 Troponin High Sensitivity+C.LAB.BRZ ordered. EDMS EDMS 04:10 04:10 Chest Single View+RAD.RAD.BRZ ordered. EDMS EDMS 04:10 04:10 Head Brain Wo Cont+CT.RAD.BRZ ordered. EDMS EDMS 05:47 05:26 Heparin (SC Drip) 12 units/kg/hr - ([place] [address] units, D5W IV 500 sp4 ml) IV at calculated rate Per protocol; Max initial rate 1000 units/hr ordered. sp4 05:48 05:26 Heparin (SC-Bolus No thrombolytic) - HEParin IVP 60 units/kg IVP once; sp4 Max 5000 units ordered. sp4 07:48 07:47 fentaNYL (PF) IVP 25 mcg IVP once ordered. sp4 sp4 07:55 05:35 [facility] attending sp4 ll1
--- NOTE | 2024-11-18 05:36 | ER ---
Nurse's Notes [facility] Name: Myriam Bryant Age: 68 yrs Sex: Female : 1955 Arrival Date: 11/18/2024 Time: 04:01 Bed 5 Private MD: Diagnosis: Subsequent non-ST elevation (NSTEMI) myocardial infarction;NSTEMI, postoperative neck pain, acute headache, generalized weakness Presentation: 11/18 04:19 Chief complaint: Spouse and/or significant other states: She had a left endarterectomy kd3 on Friday and was discharged on Friday. Since her discharge she has been feeling nauseous, bilateral hand numbness, head aches and faint. She was told that this was normal after the procedure but it doesn't appear to be getting better. Coronavirus screen: Vaccine status: Patient reports being unvaccinated. Ebola Screen: No symptoms or risks identified at this time. Initial Sepsis Screen: Does the patient meet any 2 criteria? No. Patient's initial sepsis screen is negative. Does the patient have a suspected source of infection? No. Patient's initial sepsis screen is negative. Risk Assessment: Do you want to hurt yourself or someone else? Patient reports no desire to harm self or others. Onset of symptoms was November 18, 2024. 04:19 Method Of Arrival: Wheelchair kd3 04:19 Acuity: VALDEMAR 3 kd3 07:53 No acute neurological deficit is noted. The patients blood glucose was checked before ll1 arriving to the hospital and was found to be normal. Triage Assessment: 04:24 General: Appears in no apparent distress. Behavior is calm, cooperative. Pain: kd3 Complains of pain in headache. Neuro: Level of Consciousness is awake, alert, obeys commands, Oriented to person, place, time, situation. 07:54 The onset of the patients symptoms was at an unknown time. ll1 07:54 The onset of the patients symptoms was. ll1 Stroke Activation: Symptom onset > 6 hours Physician: ED Attending; Name: ; Notified At: ; Arrived At: Physician: Mid-Level Provider; Name: ; Notified At: ; Arrived At: Physician: [not used]; Name: ; Notified At: ; Arrived At: Physician: [not used]; Name: ; Notified At: ; Arrived At: Physician: [not used]; Name: ; Notified At: ; Arrived At: Historical: - PMHx: 04:24 Arthritis; Diabetes - NIDDM; Hyperlipidemia; Hypertensive disorder; kd3 - Immunization history:: Adult Immunizations up to date. - Infectious Disease History:: Denies. - Social history:: Smoking status: Patient denies any tobacco usage or history of. - Family history:: not pertinent. - Hospitalizations: : No recent hospitalization is reported. as above, [facility] for carotid endarterectomy on 11/15/2024. Screenin:42 [facility] ED Fall Risk Assessment (Adult) History of falling in the last 3 months, dd2 including since admission No falls in past 3 months (0 pts) Confusion or Disorientation No (0 pts) Intoxicated or Sedated No (0 pts) Impaired Gait No (0 pts) Mobility Assist Device Used No (0 pt) Altered Elimination No (0 pt) Score/Fall Risk Level 0 - 2 = Low Risk Oriented to surroundings, Maintained a safe environment, Educated pt \T\ family on fall prevention, incl call for assistance when getting out of bed, Assessed \T\ reinforced patient's understanding of fall precautions, Hourly rounding (assess needs \T\ fall precautionary measures) done. Abuse screen: Denies threats or abuse. Nutritional screening: No deficits noted. Tuberculosis screening: No symptoms or risk factors identified. Assessment: 04:42 TNKase (Tenecteplase) Screening: TNKase (Tenecteplase) Screening: Contraindications: Is dd2 the patient on Aspirin, Heparin, or Warfarin: Yes. 04:42 VAN Scoring: Arm Drift: Patients demonstrates NO arm weakness. Patient is VAN Negative. dd2 Visual Disturbance: No visual disturbance noted. Aphasia: No aphasia noted. Neglect: No neglect noted. [place] Swallow Protocol Exclusion Criteria: Brief Cognitive Screen What is your name? Normal, Where are you right now? Normal, What year is it? Normal. Oral Mechanism Examination Facial Symmetry: Normal, Motion: Normal, Lip Closure: Normal, Oral Mechanism Result: Normal. 3 oz Water Swallow Challenge: Pt able to drink all water without stopping, coughing, choking or throat clearing: Yes Result: JILLIAN DIXON Notified: Jamil Mayers MD. 07:00 General: Appears uncomfortable, Behavior is calm, cooperative, appropriate for age. ll1 Pain: Complains of pain in head. Neuro: Level of Consciousness is awake, alert, obeys commands, Oriented to person, place, time, situation, Seismic Plotter are weak bilaterally Full function Gait is steady, Speech is normal, Facial symmetry appears normal, Reports headache numbness weakness. 07:50 Reassessment: No changes from previously documented assessment. Patient and/or family ll1 updated on plan of care and expected duration. Pain level reassessed. Patient is alert, oriented x 3, equal unlabored respirations, skin warm/dry/pink. to [place] ER via ambulance. Vital Signs: 04:19 BP 178 / 63; Pulse 80; Resp 19; Temp 98.6; Pulse Ox 99% on R/A; Weight 41.28 kg; Height kd3 4 ft. 11 in. ; 04:48 BP 175 / 60; Pulse 80; Resp 18; Pulse Ox 100% ; dd2 05:32 BP 173 / 62; Pulse 83; Resp 16; Pulse Ox 98% on R/A; dd2 05:45 BP 172 / 55; Pulse 81; Resp 15; Pulse Ox 99% on R/A; dd2 06:30 BP 154 / 59; Pulse 90; Resp 16; Pulse Ox 97% on R/A; dd2 07:00 BP 156 / 58; Pulse 90; Resp 17; ll1 07:45 BP 154 / 56; Pulse 88; Resp 17; Pulse Ox 97% ; Pain 8/10; ll1 04:19 Body Mass Index 18.38 (41.28 kg, 149.86 cm) kd3 07:45 Pain Scale: Adult ll1 Finn Coma Score: 04:42 Eye Response: to voice(3). Motor Response: obeys commands(6). Verbal Response: dd2 oriented(5). Total: 14. 05:30 Eye Response: spontaneous(4). Motor Response: obeys commands(6). Verbal Response: sp4 oriented(5). Total: 15. NIH Stroke Scale Scores: 04:45 NIHSS Score: 0 dd2 05:30 NIHSS Score: 0 sp4 ED Course: 04:04 Patient arrived in ED. gm2 04:09 Jamil Mayers MD is Attending Physician. sp4 04:22 MAUREEN BARAJAS RN is Primary Nurse. dd2 04:23 Triage completed. kd3 04:24 Arm band placed on right wrist. kd3 04:28 XRAY Chest (1 view) In Process Unspecified. EDMS 04:42 Patient has correct armband on for positive identification. Bed in low position. Call dd2 light in reach. Side rails up X2. Client placed on continuous cardiac and pulse oximetry monitoring. NIBP monitoring applied. threat monitoring analyst on. Door closed. Noise minimized. Warm blanket given. Pillow given. Verbal reassurance given. 04:42 No provider procedures requiring assistance completed. Initial lab(s) drawn, by me, dd2 sent to lab. EKG done, by ED staff, reviewed by aJmil Mayers MD. Inserted saline lock: 20 gauge in right upper arm, using aseptic technique. Blood collected. Flushed with 10 mL NS. Patient maintains SpO2 saturation greater than 95% on room air. 04:52 CT Head Brain wo Cont In Process Unspecified. EDMS 05:32 [facility] Transfer center called to initiate transfer. Spoke with Nataly. ty 05:49 Approval given. ty 06:17 FS Faxed. ty 06:48 Report given to K[facility]. dd2 07:54 Provided Education on: need for transfer. ll1 07:54 Patient transferred, IV remains in place. ll1 Administered Medications: 05:47 CANCELLED (Physician Discretion): Heparin ([place] Drip) - ([id number] units, [id number] ml) sp4 12 units/kg/hr IV at calculated rate Per protocol; Max initial rate 1000 units/hr 05:48 CANCELLED (Physician Discretion): Heparin ([place]-Bolus No thrombolytic) - [id number] sp4 units/kg IVP once; Max 5000 units 06:11 Drug: NS 0.9% IV 1000 ml IV at 125 ml/hr once; to be given as a bolus over 60 minutes dd2 Route: IV; Rate: 125 ml/hr; Site: right upper arm; 06:26 Follow up: Response: Medication administered at discharge. dd2 06:53 Follow up: IV Status: Infusion continued upon transfer dd2 06:11 Drug: Lovenox Sub-Q 40 mg Sub-Q once Route: Sub-Q; Site: abdomen; dd2 06:26 Follow up: Response: No adverse reaction dd2 06:12 Drug: fentaNYL (PF) IVP 25 mcg IVP once Route: IVP; Site: right upper arm; dd2 06:27 Follow up: Response: No adverse reaction dd2 06:12 Drug: Ondansetron IVP 4 mg IVP once; over 2 minutes Route: IVP; Site: right upper arm; dd2 06:27 Follow up: Response: No adverse reaction dd2 06:12 Drug: NS 0.9% IV 500 ml 500 ml IV at 1 bolus once; to be given as a bolus over 30 dd2 minutes Volume: 500 ml; Route: IV; Rate: 1 bolus; Site: right upper arm; 06:27 Follow up: Response: No adverse reaction dd2 06:42 Follow up: IV Status: Completed infusion; IV Intake: 500ml dd2 07:48 CANCELLED (Physician Discretion): fentanyl (pf)25 mcg IVP once sp4 07:50 Drug: Ondansetron IVP 4 mg IVP once; over 2 minutes Route: IVP; Site: right antecubital;ll1 07:55 Follow up: Response: No adverse reaction ll1 07:50 Drug: fentaNYL (PF) IVP 50 mcg IVP once Route: IVP; Site: right antecubital; ll1 07:55 Follow up: Response: No adverse reaction; Pain is decreased; RASS: Alert and Calm (0) ll1 Medication: 04:42 VIS not applicable for this client. 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 dd2 Outcome: 05:35 ER care complete, transfer ordered by . sp4 07:53 Transferred by ground EMS Transfer form completed. Note: [place] ED ll1 07:53 Condition: stable 07:53 Instructed on the need for transfer, 07:55 Patient left the ED. ll1 NIH Stroke Scale - NIH Stroke Score Date: 11/18/2024 Time: 04:45 Total Score = 0 10. Dysarthria (speech clarity - read or repeat words) - 0(Normal) 11. Extinction and Inattention (visual/tactile/auditory/spatial/personal) - 0(No abnormality) 1a. Level of Consciousness (LOC) - 0(Alert) 1b. Level of Consciousness (LOC) (Month \T\ Age) - 0(Both) 1c. LOC Commands (Open \T\ Closes Eyes/Collector) - 0(Both) 2. Best Gaze (Lateral Gaze Paresis) - 0(Normal) 3. Visual Field Loss - 0(No visual loss) 4. Facial Palsy - 0(Normal) 5a. Left Arm: Motor (10-second hold) - 0(No drift) 5b. Right Arm: Motor (10-second hold) - 0(No drift) 6a. Left Leg: Motor (5-second hold - always test supine) - 0(No drift) 6b. Right Leg: Motor (5-second hold - always test supine) - 0(No drift) 7. Limb Ataxia (finger/nose \T\ heel/swann - test with eyes open) - 0(Absent) 8. Sensory Loss (pinprick arms/legs/face) - 0(Normal) 9. Best Language: Aphasia (description/naming/reading) - 0(No aphasia) Initials: dd2 NIH Stroke Scale - NIH Stroke Score Date: 11/18/2024 Time: 05:30 Total Score = 0 10. Dysarthria (speech clarity - read or repeat words) - 0(Normal) 11. Extinction and Inattention (visual/tactile/auditory/spatial/personal) - 0(No abnormality) 1a. Level of Consciousness (LOC) - 0(Alert) 1b. Level of Consciousness (LOC) (Month \T\ Age) - 0(Both) 1c. LOC Commands (Open \T\ Closes Eyes/Collector) - 0(Both) 2. Best Gaze (Lateral Gaze Paresis) - 0(Normal) 3. Visual Field Loss - 0(No visual loss) 4. Facial Palsy - 0(Normal) 5a. Left Arm: Motor (10-second hold) - 0(No drift) 5b. Right Arm: Motor (10-second hold) - 0(No drift) 6a. Left Leg: Motor (5-second hold - always test supine) - 0(No drift) 6b. Right Leg: Motor (5-second hold - always test supine) - 0(No drift) 7. Limb Ataxia (finger/nose \T\ heel/swann - test with eyes open) - 0(Absent) 8. Sensory Loss (pinprick arms/legs/face) - 0(Normal) 9. Best Language: Aphasia (description/naming/reading) - 0(No aphasia) Initials: sp4 Signatures: Dispatcher [employer] EDLynn Kamara, RN RN ll1 Jacy Kendall RN RN kd3 Jamil Mayers MD MD sp4 Yamilet Chahal 2 Mario Sanchez DIANA, RN RN dd2 Corrections: (The following items were deleted from the chart) 06:02 05:35 [facility] ty ty 06:14 05:50 BP 173 / 62; Pulse 83bpm; Resp 16bpm; Pulse Ox 98% RA; dd2 dd2
--- NOTE | 2024-11-18 05:43 | RAD REPORT ---
EXAM DESCRIPTION: CT of the head without contrast CLINICAL HISTORY: DIZZINESS COMPARISON: 01/07/2024 TECHNIQUE: Axial CT of the head obtained from the skull apex to the skull base without contrast. This exam was performed according to our departmental dose-optimization program, which includes automated exposure control, adjustment of the mA and/or kV according to patient size and/or use of it erative reconstruction technique. FINDINGS: No acute intracranial hemorrhage identified. No mass, mass effect, shift of the midline, abnormal ext ra-axial fluid collection or CT evidence of acute ischemic change identified. The ventricular system and sulcal spaces are age appropriate. Scattered areas of hypodensity throughout the suprate ntorial white matter are nonspecific and may be related to chronic small vessel ischemic change. The visualized paranasal sinuses and the mastoids are clear. No skull fracture identified. Visualiz ed orbits and globes are unremarkable. Atherosclerotic calcification of the intracranial internal carotid arteries. IMPRESSION: 1. No acute intracranial abnormality by CT criteria. Electronically signed by: Santiago Nash DO 11/18/2024 05:38 AM [facility] [id number] Due to temporary technical issues with the PACS/[employer] reporting system, reports are being frida d by the in-house radiologist without review as a courtesy to ensure prompt reporting the interpreting radiologist is fully responsible for the content of the report. Transcribed Date/Time: 11/18/2024 5:42 AM
--- NOTE | 2024-11-18 05:46 | RAD REPORT ---
CLINICAL HISTORY: Chest pain. COMPARISON: XR Chest 04/29/2024. TECHNIQUE: XR CHEST 1 VIEW 11/18/2024 4:09 AM IT SALES CONSULTANT FINDINGS: Cardiac silhouette is normal in size. Lungs are clear without consolidation, atelectasis, mass or lissette ma. There is no pleural effusion. There is no pneumothorax. There are no acute osseous findings. IMPRESSION: Clear lungs. Electronically signed by: Francisco Silva MD 11/18/2024 05:38 AM IT SALES CONSULTANT RP Due to temporary technical issues with the PACS/[employer] reporting system, reports are being frida d by the in-house radiologist without review as a courtesy to ensure prompt reporting the interpreting radiologist is fully responsible for the content of the report. Transcribed Date/Time: 11/18/2024 5:45 AM
[2024-11-18] MEDS ORDERED: FENTANYL CITR 100 MCG/2 ML ONE ×2 (05:56→07:41)
[2024-11-18] MEDS ORDERED: ONDANSETRON 4 MG/2 ML VIAL ONE ×2 (05:56→07:47)
[2024-11-18] MEDS ORDERED: NA CHLORIDE 0.9% 1,000 ML ONE (05:58)
[2024-11-18] MEDS ORDERED: ENOXAPARIN 40 MG/0.4 ML SQ ONE (05:58)
[2024-11-18] MEDS ORDERED: NA CHLORIDE 0.9% 500 ML ONE (05:58)
[2024-11-18 08:00] VITALS: TEMP 98.6
[2024-11-18 08:06] VITALS: O2SAT 97
[2024-11-18 08:10] VITALS: BP 154/56
--- NOTE | 2024-11-19 15:42 | EKG ---
Test Date: 2024-11-18 Test Time: 04:39:33 Fireworks Inspector: RADHA MEASUREMENT RESULTS: Intervals: Rate: 78 W[place]: 140 QRSD: 78 QT: 370 QTc: 421 [place]: P: 64 W[place]: 140 QRS: 65 T: -9 INTERPRETIVE STATEMENTS: Normal sinus rhythm Cannot rule out Anterior infarct, age undetermined Abnormal ECG Compared to ECG 10/15/2024 11:48:35 Myocardial infarct finding now present ST (T wave) deviation no longer present Electronically Signed On 11-19-24 15:40:36 SUSTAINABLE DEVELOPMENT POLICY ANALYST by Cory Jacob
== END 2024-11-18 07:55 | disposition short-term general hospital (02) ==
LOC: ER 04:01
DX: I21.4 Non-ST elevation (NSTEMI) myocardial infarction (principal); E11.9 Type 2 diabetes mellitus without complications; E78.5 Hyperlipidemia, unspecified; I10 Essential (primary) hypertension; M19.90 Unspecified osteoarthritis, unspecified site; R51.9 Headache, unspecified; M54.2 Cervicalgia; R29.700 NIHSS score 0
CPT/HCPCS: 93005; 85025; 80048; 36415; 83735; 85610; 80076; 84484; 83880; 70450; 71045; 96372; 99285; J1650; J3010 ×2; J2405 ×2; J7040; J7030

== ENCOUNTER 2025-01-25 03:36 | Emergency (ER) | payer OTHER ==
--- OUTSIDE RECORDS SUMMARY | 2025-01-25 03:42 | XMS REPORT | Continuity of Care Document ---
Author Name Unknown Address [address] [facility] [place] [address] [facility] Address [address] [facility] [place] [address] Care Team Providers Care Quality Specialist Name Role Phone AURELIANO SIMS Primary Care Physician Aureliano Jonas Attending Clinician Unavailable Onesimo Urias Attending Clinician Unavailable DIVYA RUVALCABA Attending Clinician DIVYA Thibodeaux JR Attending Clinician ANISA Garcia Attending Clinician UnavailSara Woods Attending Clinician TJ Gross Attending Clinician Unavailable EDWIN WOODS Attending Clinician SIOBHAN Dillard Attending Clinician Unavailable Siobhan Pereira MD Attending Clinician Edwin Malave Attending Clinician + [phone] Jonnie ARRIAGA Attending Clinician Unavailable Anisa Jacob MD Attending Clinician [phone] Iliana DIXON, Divya Salazar Attending Clinician + [phone] Doctor Unassigned, Linton Attending Clinician U navailable Only, Adc Test Attending Clinician Unavailable Pob, Adc Lab Main Attending Clinician Unavailjonathan Cam Jr., MD, Divya Ramires Attending Clinician + [phone] Veronica DIXON, Patricia Jean Baptiste Attending Clinician [phone] Yue RN, Yesenia Attending Clinician Unavailjonathan Benítez RN, Matt A Attending Clinician Unavail able Sun Elam S Attending Clinician [phone] DIVYA RUVALCABA Admitting Clinician UnaDIVYA Winkler JR Admitting Clinician UnavailANISA Whalen Admitting Clinician UnavailSara Woods Admitting Clinician UnavailSIOBHAN Kingston Admitting Clinician Unavailable Jonnie ARRIAGA Admitting Clinician Unavailable Iliana DIXON, Diyva Salazar Admitting Clinician + [phone] Dorina Simental MD, Divya Ramires Admitting Clinician + [phone] Nidia DIXON, Anisa Admitting Clinician [phone] Payers Payer Name Policy Type Policy Number Effective Date Expirati on Date Source [facility]/AARP MEDICARE ADVANTAGE [id number] 2021 00:00:00 [facility] AARP MCR Advantage (HMO-POS) 53 [id number] 2020 00:00:00 [facility] MEDICARE NOVITAS [id number] 2020 00:00:00 [facility] MEDICARE NOVITAS [id number] 2020 00:00:00 [facility] COMMUNITY HEALTH CHOICE [id number] 2017 00:00:00 Problems Condition Name Condition Details Condition Category Status Onset Date Resolution Date Last Treatment Date Treating Clinician Comments Source Peripheral arterial disease Peripheral arterial disease Disease Active 04-24 00:00: 00 Overview: Formattin g of this note might be different from the original. Added automatic ally from request for surgery [id number] [facility] Neuropathy Neuropathy Disease Active 04-24 00:00: 00 Overview: Formattin g of this note might be different from the original. Added automatic ally from request for surgery [id number] [facility] PAD (periphera l artery disease) PAD (periphera l artery disease) Disease Active 04-06 00:00: 00 [facility] Type 2 diabetes mellitus with complicati on, without long-term current use of insulin Type 2 diabetes mellitus with complicati on, without long-term current use of insulin Disease Active 08-18 00:00: 00 [facility] Dyslipidem ia Dyslipidem ia Disease Active 08-18 00:00: 00 [facility] Elevated ALT measuremen t Elevated ALT measuremen t Disease Active 08-18 00:00: 00 [facility] [id number] Current moderate episode of major depressive disorder without prior episode Problem [facility] [id number] Chronic fatigue Problem [facility] [id number] Nausea and vomiting, intractabi lity of vomiting not specified, unspecifie d vomiting type Problem [facility] Foot pain Foot pain Problem [facility] Decreased hearing Decreased hearing Problem [facility] Colon cancer screening Colon cancer screening Problem [facility] [id number] Chronic pain syndrome Problem [facility] [id number] Skin lesion Problem [facility] [id number] Anemia, unspecifie d type Problem [facility] [id number] Nonintract able headache, unspecifie d chronicity pattern, unspecifie d headache type Problem [facility] [id number] Mixed hyperlipid emia Problem [facility] [id number] Uncontroll ed type 2 diabetes mellitus without complicati on, without long-term current use of insulin Problem [facility] [id number] 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 on Problem [facility] [id number] Polyarthra lgia Problem [facility] [id number] Abnormal liver function Problem [facility] [id number] Vitamin D deficiency Problem [facility] [id number] Essential hypertensi on Problem [facility] [id number] Gastroesop hageal reflux disease, esophagiti s presence not specified Problem [facility] Allergies, Adverse Reactions, Alerts Allergy Name Allergy Type Status Severity Reaction(s) Onset Date Inactive Date Treating Clinician Comments Source No Known Allergie s DA Active U 2023-12 00:00: 00 [facility] NO KNOWN ALLERGIE S Drug Class Active [facility] Social History Social Habit Start Date Stop Date Quantity Comments Source History of Tobacco Use [facility] Sex Assigned At [facility] Exposure to SARS-CoV-2 (event) 2022-06-19 00:00:00 2022-06-29 20:04:00 Not sure [facility] Tobacco use and exposure 2021-04-06 00:00:00 2021-04-06 00:00:00 Smokeless tobacco non-user [facility] Smoking Status Start Date Stop Date Source Never Smoker [facility] Medications Ordered Medication Name Filled Medication Name Start Date Stop Date Current Medication? Ordering Clinician Indication Dosage Frequency Signature (SIG) Comments Components Source Pregabalin 75 MG Pregabalin 75 MG 2022-12- [...] 9-14 00:00: 00 No 1000ug [facility] Cyanocobala min Cyanocobala min 2021-0 9-14 00:00: 00 No 1000ug [facility] Cyanocobala min Cyanocobala min 2021-0 -14 00:00: 00 No 1000ug [facility] Cyanocobala min Cyanocobala min 2021-0 9-14 00:00: 00 No 1000ug [facility] Cyanocobala min Cyanocobala min 2021-0 9-14 00:00: 00 No 1000[facility] Cyanocobala min Cyanocobala min 2021-0 -14 00:00: 00 No 1000ug [facility] Cyanocobala min Cyanocobala min 2021-0 9-14 00:00: 00 No 1000ug Common [facility] Cyanocobala min Cyanocobala min 2021-0 9-14 00:00: 00 No 1000ug [facility] Cyanocobala min Cyanocobala min 2021-0 9-14 00:00: 00 No 1000ug [facility] Cyanocobala min Cyanocobala min 2021-0 9-14 00:00: 00 No 1000ug [facility] Cyanocobala min Cyanocobala min 2021-0 9-14 00:00: 00 No 1000ug [facility] Cyanocobala min Cyanocobala min 2022-0 9-14 00:00: 00 No 1000ug Common [facility] Cyanocobala min Cyanocobala min 0 9-14 00:00: 00 No 1000ug Common [facility] Vitamin B12 (Cyanocobal riggs) Vitamin B12 (Cyanocobal riggs) 2021-0 8-16 00:00: 00 No 1000ug [facility] Cyanocobala min Cyanocobala min 0 8-16 00:00: 00 No 1000ug [facility] Cyanocobala min Cyanocobala min 0 8-16 00:00: 00 No 1000ug [facility] Cyanocobala min Cyanocobala min 0 8-16 00:00: 00 No 1000ug [facility] Cyanocobala min Cyanocobala min 0 8-16 00:00: 00 No 1000ug [facility] Cyanocobala min Cyanocobala min 0 8-16 00:00: 00 No 1000ug [facility] Cyanocobala min Cyanocobala min 0 8-16 00:00: 00 No 1000ug [facility] Cyanocobala min Cyanocobala min 0 8-16 00:00: 00 No 1000ug [facility] Cyanocobala min Cyanocobala min 0 8-16 00:00: 00 No 1000ug [facility] Cyanocobala min Cyanocobala min 0 8-16 00:00: 00 No 1000ug [facility] Cyanocobala min Cyanocobala min 0 8-16 00:00: 00 No 1000ug [facility] Cyanocobala min Cyanocobala min 0 8-16 00:00: 00 No 1000ug [facility] Cyanocobala min Cyanocobala min 0 8-16 00:00: 00 No 1000ug [facility] Cyanocobala min Cyanocobala min 8-16 00:00: 00 No 1000ug [facility] NaCl 0.9% (NS) bolus infusion 500 mL 06-30 01:30: 00 06-30 04:00 :00 No 500mL at 999 mL/hr, 500 mL, IV Infusion, ONCE, 1 dose, On 06/29/22 at 2029, STAT [facility] diphenhydrA MINE (BENADRYL) injection 25 mg 06-30 01:30: 00 06-30 01:48 :00 No 25mg 25 mg, Slow IV Push, ONCE, 1 dose, On 06/29/22 at 2029, STAT [facility] metoclopram ana HCl (REGLAN) injection 10 mg 06-30 01:30: 00 06-30 01:48 :00 No 10mg 10 mg, Slow IV Push, ONCE, 1 dose, On 06/29/22 at 2029, ZARI [facility] ondansetron (ZOFRAN) 4 mg tablet 06-29 00:00: 00 Yes [id number] 4mg Take 1 tablet by mouth every 8 (eight) hours as needed for Nausea and Vomiting (N/V). [facility] traMADoL (ULTRAM) 50 mg tablet 06-29 00:00: 00 Yes [id number] 50mg Take 1 tablet by mouth every 6 (six) hours as needed for Pain (scale 7-10). Indication s: acute pain [facility] butalbital- acetaminoph en-caff 50-325-40 mg tablet 06-29 00:00: 00 06-29 00:00 :00 No [id number] 1{tbl} Take 1 tablet by mouth every 6 (six) hours as needed (Headache) . [facility] Sertraline HCl 25 MG Sertraline [...] 10mg Take 10 mg by mouth daily. [facility] DULoxetine 30 mg CDRS 05-30 14:30: 22 Yes 1{capsu le} Take 1 capsule by mouth 2 (two) times daily. [facility] Jardiance 10 MG Jardiance 10 MG 05-15 00:00: 00 06-14 00:00 :00 No 1{table t} QD Jardiance 10 MG pioglitazon e 15 mg tablet 05-09 16:17: 08 Yes 15mg Take 15 mg by mouth daily. [facility] gabapentin 100 mg capsule 05-09 16:17: 08 Yes 100mg Take 100 mg by mouth 3 (three) times daily. [facility] lisinopriL 10 mg tablet 05-09 16:17: 08 Yes 10mg Take 10 mg by mouth daily. [facility] rosuvastati n 20 mg tablet 05-09 16:17: 08 Yes 20mg Take 20 mg by mouth at bedtime. [facility] glimepiride 4 mg tablet 05-09 16:14: 17 Yes 4mg Take 4 mg by mouth daily with breakfast. [facility] Insulin Glargine (LANTUS SOLOSTAR U-100 INSULIN) 100 unit/mL (3 mL) injection 05-09 16:14: 17 Yes inject under the skin. [facility] metFORMIN 1,000 mg tablet 05-09 16:14: 17 Yes 1000mg Take 1,000 mg by mouth 2 (two) times daily with meals. [facility] diazePAM 5 MG diazePAM 5 [...] Yes 200mg Take 200 mg by mouth. [facility] ergocalcife rol, vitamin d2, (VITAMIN D2) 50,000 unit capsule 2020-12 08:53: 10 Yes [id number] Take 50,000 Units by mouth weekly. [facility] metFORMIN 500 mg tablet 2020-12 08:53: 10 Yes 500mg Take 500 mg by mouth 2 (two) times daily with meals. [facility] meloxicam 7.5 mg tablet 2020-12 08:53: 10 Yes 7.5mg Take 7.5 mg by mouth daily. [facility] pioglitazon e 30 mg tablet 2020-12 08:53: 10 Yes 30mg Take 30 mg by mouth daily. [facility] Rollator walker n/s Rollator walker [...] 100 mg capsule 8-24 00:00: 00 Yes [id number] TAKE 1 CAPSULE BY MOUTH EVERY 12 HOURS FOR 7 DAYS [facility] Contour Next Test - Contour Next Test [...] (scale 7-10). Indication s: acute pain [facility] acetaminoph en-codeine 300-30 mg tablet 05-30 00:00: 00 Yes [id number] 1{tbl} Take 1 tablet by mouth every 6 (six) hours as needed for Pain (scale 7-10) for up to 18 doses. Indication s: acute pain [facility] Pen Kenvil 5/16" 31G X 8 MM Pen Kenvil 5/16" 31G X 8 MM 2020-0 04-26 00:00: 00 No QD Pen Kenvil 5/16" 31G X 8 MM Lisinopril 10 MG Lisinopril 10 MG 04-26 00:00: 00 No 1{table t} QD Lisinopril 10 MG Pen Kenvil 5/16" 31G X 8 MM Pen Kenvil 5/16" 31G X 8 MM 2020-0 04-26 00:00: 00 No QD Pen Kenvil 5/16" 31G X 8 MM Pen Kenvil 5/16" 31G X 8 MM Pen Kenvil 5/16" 31G X 8 MM 2020-0 04-26 00:00: 00 No QD Pen Kenvil 5/16" 31G X 8 MM Lisinopril 10 MG Lisinopril 10 MG 2020-0 04-26 00:00: 00 No 1{table t} QD Lisinopril 10 MG Lisinopril 10 MG Lisinopril 10 MG 2020-0 04-26 00:00: 00 No 1{table t} QD Lisinopril 10 MG Pen Kenvil 5/16" 31G X 8 MM Pen Kenvil 5/16" 31G X 8 MM 04-26 00:00: 00 No QD Pen Kenvil 5/16" 31G X 8 MM Lisinopril 10 MG Lisinopril 10 MG 04-26 00:00: 00 No 1{table t} QD Lisinopril 10 MG Pen Kenvil 5/16" 31G X 8 MM Pen Kenvil 5/16" 31G X 8 MM 04-26 00:00: 00 No QD Pen Kenvil 5/16" 31G X 8 MM aspirin 81 mg chewable tablet 04-07 00:00: 00 Yes [id number] 81mg Take 1 tablet by mouth daily. [facility] atorvastati n (LIPITOR) 20 mg tablet 08-24 00:00: 00 Yes 20mg Take 1 tablet by mouth at bedtime. [facility] Pioglitazon e HCl Pioglitazon e [...] Garcia as directed; dispense lancets formulary to [facility] BL Blood Glucose Monitor Kit BL Blood Glucose Monitor Kit 04-09 00:00: 00 Yes Kamala Garcia As directed; DISPENSE BG MONITOR FORMULARY TO [facility] blood glucose test strip blood glucose test strip 04-09 00:00: 00 07-03 00:00 :00 No Kamala Garcia as directed; DISPENSE TESTING STRIPS FORMULARY TO [facility] Glimepiride Glimepiride Yes Kamala Millender 1 tablet [...] BRETT/J&J VACCINE 2021-02-19 00:00:00 Completed [facility] SARS-COV-2 COVID-19 BRETT/J&J VACCINE 2021-02-19 00:00:00 Completed [facility] Prevnar 20 (PCV20) Prevnar 20 (PCV20) Unknown [...] height 2023-11-17 08:40:00 56 [in_i] Commo n [facility] weight 2023-11-17 08:40:00 105.4 [lb_av] Co mmon [facility] temperature 2023-11-17 08:40:00 98.0 [degF] Com [facility] bmi 2023-11-17 08:40:00 23.63 kg/m2 Comm on [facility] oximetry 2023-11-17 08:40:00 100 % Commo n [facility] respiratory rate 2023-11-17 08:40:00 16 /min [facility] blood pressure systolic 2023-11-17 08:40:00 148 mm[Hg] [facility] blood pressure diastolic 2023-11-17 08:40:00 72 mm[Hg] [facility] height 2023-08-25 10:00:00 56 [in_i] Commo n [facility] weight 2023-08-25 10:00:00 100.8 [lb_av] Co mmon [facility] temperature 2023-08-25 10:00:00 97.9 [degF] Com [facility] bmi 2023-08-25 10:00:00 22.6 kg/m2 Commo n [facility] oximetry 2023-08-25 10:00:00 98 % Commo n [facility] respiratory rate 2023-08-25 10:00:00 16 /min [facility] blood pressure systolic 2023-08-25 10:00:00 139 mm[Hg] [facility] blood pressure diastolic 2023-08-25 10:00:00 71 mm[Hg] [facility] height 2023-08-25 10:20:00 56 [in_i] Commo n [facility] weight 2023-08-25 10:20:00 100.8 [lb_av] Co mmon [facility] temperature 2023-08-25 10:20:00 97.9 [degF] Com [facility] bmi 2023-08-25 10:20:00 22.6 kg/m2 Commo n [facility] oximetry 2023-08-25 10:20:00 98 % Commo n [facility] respiratory rate 2023-08-25 10:20:00 16 /min [facility] blood pressure systolic 2023-08-25 10:20:00 139 mm[Hg] [facility] blood pressure diastolic 2023-08-25 10:20:00 71 mm[Hg] Common [facility] height 2023-07-31 13:20:00 56 [in_i] Commo n [facility] weight 2023-07-31 13:20:00 101.2 [lb_av] Co mmon [facility] temperature 2023-07-31 13:20:00 98.2 [degF] Com [facility] bmi 2023-07-31 13:20:00 22.69 kg/m2 Comm on [facility] oximetry 2023-07-31 13:20:00 96 % Commo n [facility] respiratory rate 2023-07-31 13:20:00 18 /min Common [facility] blood pressure systolic 2023-07-31 13:20:00 134 mm[Hg] [facility] blood pressure diastolic 2023-07-31 13:20:00 84 mm[Hg] Common [facility] height 2022-07-16 13:00:00 56 [in_i] Commo n [facility] weight 2022-07-16 13:00:00 97.8 [lb_av] Com [facility] temperature 2022-07-16 13:00:00 98.2 [degF] Com [facility] bmi 2022-07-16 13:00:00 21.92 kg/m2 Comm on [facility] oximetry 2022-07-16 13:00:00 100 % Commo n [facility] respiratory rate 2022-07-16 13:00:00 16 /min [facility] blood pressure systolic 2022-07-16 13:00:00 138 mm[Hg] [facility] blood pressure diastolic 2022-07-16 13:00:00 88 mm[Hg] [facility] Systolic blood pressure 2022-06-30 04:00:00 149 mm[Hg] [facility] Diastolic blood pressure 2022-06-30 04:00:00 61 mm[Hg] [facility] Heart rate 2022-06-30 04:00:00 92 /min [facility] Respiratory rate 2022-06-30 04:00:00 18 /min [facility] Oxygen saturation in Arterial blood by Pulse oximetry 2022-06-30 04:00:00 98 /min [facility] Body temperature 2022-06-30 01:07:00 38.22 Sravanthi [facility] Body height 2022-06-30 01:07:00 144.8 cm [facility] Body weight 2022-06-30 01:07:00 47.174 kg [facility] BMI 2022-06-30 01:07:00 22.51 kg/m2 [facility] height 2022-06-13 13:00:00 Commo n [facility] weight 2022-06-13 13:00:00 98.6 [lb_av] Com [facility] temperature 2022-06-13 13:00:00 97.2 [degF] Com [facility] bmi 2022-06-13 13:00:00 22.1 kg/m2 Commo n [facility] oximetry 2022-06-13 13:00:00 97 % Commo n [facility] respiratory rate 2022-06-13 13:00:00 16 /min [facility] blood pressure systolic 2022-06-13 13:00:00 136 mm[Hg] [facility] blood pressure diastolic 2022-06-13 13:00:00 69 mm[Hg] [facility] Systolic blood pressure 2022-05-30 19:32:00 140 mm[Hg] [facility] Diastolic blood pressure 2022-05-30 19:32:00 75 mm[Hg] [facility] Heart rate 2022-05-30 19:30:00 71 /min [facility] Body temperature 2022-05-30 19:30:00 37.06 Sravanthi [facility] Body height 2022-05-30 19:30:00 147.3 cm [facility] Body weight 2022-05-30 19:30:00 43.999 kg [facility] BMI 2022-05-30 19:30:00 20.27 kg/m2 [facility] Oxygen saturation in Arterial blood by Pulse oximetry 2022-05-30 19:30:00 100 /min [facility] height 2022-05-15 13:00:00 57 [in_i] Commo n [facility] weight 2022-05-15 13:00:00 99.8 [lb_av] Com [facility] temperature 2022-05-15 13:00:00 98.4 [degF] Com [facility] bmi 2022-05-15 13:00:00 21.59 kg/m2 Comm on [facility] oximetry 2022-05-15 13:00:00 96 % Commo n [facility] respiratory rate 2022-05-15 13:00:00 16 /min [facility] blood pressure systolic 2022-05-15 13:00:00 164 mm[Hg] Common [facility] blood pressure diastolic 2022-05-15 13:00:00 76 mm[Hg] [facility] height 2022-01-22 15:40:00 57 [in_i] Commo n [facility] weight 2022-01-22 15:40:00 110 [lb_av] Comm on [facility] temperature 2022-01-22 15:40:00 97.2 [degF] Com mon [facility] bmi 2022-01-22 15:40:00 23.80 kg/m2 Comm on [facility] oximetry 2022-01-22 15:40:00 98 % Commo n [facility] blood pressure systolic 2022-01-22 15:40:00 138 mm[Hg] Common [facility] blood pressure diastolic 2022-01-22 15:40:00 74 mm[Hg] [facility] height 2022-01-22 16:00:00 57 [in_i] Commo n [facility] weight 2022-01-22 16:00:00 110 [lb_av] Comm on [facility] temperature 2022-01-22 16:00:00 97.2 [degF] Com [facility] bmi 2022-01-22 16:00:00 23.80 kg/m2 Comm on [facility] oximetry 2022-01-22 16:00:00 98 % Commo n [facility] blood pressure systolic 2022-01-22 16:00:00 138 mm[Hg] [facility] blood pressure diastolic 2022-01-22 16:00:00 74 mm[Hg] Common [facility] height 2021-10-16 13:40:00 57 [in_i] Commo n [facility] weight 2021-10-16 13:40:00 109.4 [lb_av] Co mmon [facility] temperature 2021-10-16 13:40:00 98.2 [degF] Com mon [facility] bmi 2021-10-16 13:40:00 23.67 kg/m2 Comm on [facility] oximetry 2021-10-16 13:40:00 99 % Commo n [facility] respiratory rate 2021-10-16 13:40:00 16 /min [facility] blood pressure systolic 2021-10-16 13:40:00 140 mm[Hg] Common [facility] blood pressure diastolic 2021-10-16 13:40:00 76 mm[Hg] Common [facility] height 2021-08-21 14:40:00 57 [in_i] Commo n [facility] weight 2021-08-21 14:40:00 112.4 [lb_av] Co mmon [facility] temperature 2021-08-21 14:40:00 97.0 [degF] Com [facility] bmi 2021-08-21 14:40:00 24.32 kg/m2 Comm on [facility] oximetry 2021-08-21 14:40:00 98 % Commo n [facility] respiratory rate 2021-08-21 14:40:00 16 /min [facility] height 2021-05-24 11:40:00 57 [in_i] Commo n [facility] weight 2021-05-24 11:40:00 106 [lb_av] Comm on [facility] temperature 2021-05-24 11:40:00 98.2 [degF] Com [facility] bmi 2021-05-24 11:40:00 22.94 kg/m2 Comm on [facility] oximetry 2021-05-24 11:40:00 97 % Commo n [facility] respiratory rate 2021-05-24 11:40:00 20 /min [facility] blood pressure systolic 2021-05-24 11:40:00 138 mm[Hg] [facility] blood pressure diastolic 2021-05-24 11:40:00 74 mm[Hg] Common [facility] Procedures Procedure Date / Time Performed Performing Clinician Source EXTIRPATION OF MATTER FROM L INT CAROTID, OPEN REBEKA 2024-11-15 00:00:00 CHAAB.01 [facility] INSERTION OF MONITORING DEVICE INTO UP ART, PERC A 2024-11-15 00:00:00 [place] [facility] MONITORING OF ARTERIAL PRESSURE, PERIPHERAL, PERC 2024-11-15 00:00:00 [facility] MONITORING OF ARTERIAL PULSE, PERIPHERAL, PERC REBEKA 2024-11-15 00:00:00 [facility] URINALYSIS 2022-06-30 03:06:00 Siobhan Pereira [facility] CT HEAD WO CONTRAST 2022-06-30 01:47:00 Siobhan Pereira [facility] LIPASE 2022-06-30 01:32:00 Siobhan Pereira [facility] TROPONIN I 2022-06-30 01:32:00 Siobhan Pereira [facility] COMP. METABOLIC PANEL (09250) 2022-06-30 01:32:00 Siobhan Pereira [facility] CBC WITH DIFF 2022-06-30 01:32:00 Siobhan Pereira [facility] PROTHROMBIN TIME / INR 2022-06-30 01:32:00 Stanley Pereira [facility] COVID-19 (ID NOW RAPID TESTING) 2022-06-30 01:32:00 Siobhan Pereira [facility] CONSENT/REFUSAL FOR DIAGNOSIS AND TREATMENT 2022-06-30 00:48:26 Doctor Unassigned, [place] [facility] Encounters Start Date/Time End Date/Time Encounter Type Admission Type Attending Clinicians Care Facility Care Department Encounter ID Source 2024-08-24 08:41:00 Outpatient Aureliano Sims [facility] [id number] [facility] 2024-01-19 13:34:00 Outpatient Onesimo Urias STLMLC STLMLC [id number] [facility] 2024-01-15 16:43:00 Outpatient Aureliano Sims STLMLC STLMLC [id number] [facility] 2023-08-28 09:25:00 Outpatient Aureliano Sims STLMLC STLMLC [id number] [facility] 2023-07-31 13:22:00 Outpatient GallitzinAureliano marcano STLMLC STLMLC [id number] [facility] 2022-08-12 13:25:00 Outpatient Aureliano Sims STLMLC STLMLC [id number] [facility] 2022-07-12 09:03:00 Outpatient Aureliano Sims STLMLC STLMLC [id number] [facility] 2021-12-26 14:35:38 Outpatient Aureliano Sims STLMLC STLMLC [id number] [facility] 2021-12-26 14:07:57 Outpatient Aureliano Sims STLMLC STLMLC [id number] [facility] 2021-12-26 13:58:41 Outpatient Aureliano Sims STLMLC STLMLC [id number] [facility] 2021-12-26 13:26:23 Outpatient Aureliano Sims STLMLC STLMLC [id number] [facility] 2021-12-26 13:07:52 Outpatient Aureliano Sims STLMLC STLMLC [id number] [facility] 2021-12-26 12:46:22 Outpatient Aureliano Sims STLMLC STLMLC [id number] [facility] 2021-12-26 12:45:46 Outpatient GallitzinAureliano marcano STLMLC STLMLC [id number] [facility] 2021-12-26 12:43:16 Outpatient Aureliano Sims STLMLC STLMLC [id number] [facility] 2021-12-26 12:42:46 Outpatient Aureliano Sims STLC STLC [id number] [facility] 2021-12-26 12:41:53 Outpatient Aureliano Sims STLMLC STLMLC [id number] [facility] 2021-12-26 12:41:21 Outpatient Aureliano Sims STLC STLC [id number] [facility] 2021-12-26 12:25:33 Outpatient STLMLC STLC [id number] [facility] 2021-10-02 03:38:45 Outpatient [facility] [id number] [facility] 2021-10-01 02:10:08 [facility] [id number] [facility] 2021-09-30 21:11:03 Outpatient ANISA JACOB [facility] [id number] [facility] 2021-09-30 17:40:10 Emergency [facility] [id number] [facility] 2024-11-18 09:38:00 2024-11-20 15:22:00 Inpatient MAKAYLA BrandonRicky smithnan [facility] MEDI.01 [id number] [facility] 2024-11-15 17:12:00 2024-11-16 15:24:00 Inpatient CAPO Rizvisoren Sara [facility] INTE [id number] [facility] 2024-11-11 08:00:00 2024-11-11 23:00:00 Outpatient CAPO Sara Gerard [facility] 3DAY [id number] [facility] 2023-12-02 00:00:00 2023-12-02 00:00:00 (TEL) STLMLC STLMLC [id number] [facility] 2023-11-17 00:00:00 2023-11-17 00:00:00 OFFICE VISIT ESTAB PT LEVEL 3 STLMLC STLMLC [id number] [facility] 2023-10-30 00:00:00 2023-10-30 00:00:00 (TEL) STLMLC STLMLC [id number] [facility] 2023-08-27 00:00:00 2023-08-27 00:00:00 (TEL) STLMLC STLMLC [id number] [facility] 2023-08-26 00:00:00 2023-08-26 00:00:00 (TEL) STLMLC STLMLC [id number] [facility] 2023-08-25 00:00:00 2023-08-25 00:00:00 OFFICE VISIT ESTAB PT LEVEL 3 STLMLC STLMLC [id number] [facility] 2023-08-25 00:00:00 2023-08-25 00:00:00 (TEL) STLMLC STLMLC [id number] [facility] 2023-08-25 00:00:00 2023-08-25 00:00:00 [facility] STL[facility] STLMLC [id number] [facility] 2023-08-07 00:00:00 2023-08-07 00:00:00 (TEL) STLMLC STLMLC [id number] [facility] 2023-07-31 00:00:00 2023-07-31 00:00:00 OFFICE VISIT ESTAB PT LEVEL 4 STLMLC STLMLC [id number] [facility] 2023-07-29 00:00:00 2023-07-29 00:00:00 (TEL) STLMLC STLMLC [id number] [facility] 2023-01-02 13:15:00 2023-01-02 13:15:00 Outpatient TJ FRANK [facility] [id number] [facility] 2022-12-24 09:00:00 2022-12-24 09:00:00 Outpatient R ANISA JACOB [facility] [id number] [facility] 2022-07-16 00:00:00 2022-07-16 00:00:00 OFFICE VISIT ESTAB PT LEVEL 4 STLMLC STLMLC [id number] [facility] 2022-07-04 00:00:00 2022-07-04 00:00:00 (TEL) STLMLC STLMLC [id number] [facility] 2022-06-29 19:58:00 2022-06-29 23:22:00 Emergency X SIOBHAN PEREIRA [facility] [id number] [facility] 2022-06-29 19:58:00 2022-06-29 23:22:00 Emergency Siobhan Pereira [facility] 1.2.840.114 350.1.13.10 4.2.7.2.686 [id number] [facility] 2022-06-13 00:00:00 2022-06-13 00:00:00 OFFICE VISIT ESTAB PT LEVEL 4 STLMLC STLMLC [id number] [facility] 2022-05-30 15:00:00 2022-05-30 15:30:00 Office Visit Edwin Woods [facility] 1.2.840.114 350.1.13.10 4.2.7.2.686 [id number] [facility] 2022-05-30 15:00:00 2022-05-30 15:00:00 Outpatient R EDWIN WOODS [facility] [id number] [facility] 2022-05-30 13:01:05 2022-05-30 13:00:00 Outpatient R EDWIN WOODS [facility] [id number] [facility] 2022-05-15 00:00:00 2022-05-15 00:00:00 OFFICE VISIT ESTAB PT LEVEL 4 STLMLC STLC [id number] [facility] 2022-05-09 16:00:00 2022-05-09 16:47:57 Outpatient R DANILO EDWIN [facility] [id number] [facility] 2022-05-09 16:00:00 2022-05-09 16:47:57 Office Visit Edwin Woods [facility] 1.840.114 350.1.13.10 4.2.7.2.686 [id number] [facility] 2022-04-28 23:27:00 2022-04-29 03:35:00 Emergency X Jonnie ARRIAGA [facility] [id number] [facility] 2022-02-05 14:00:00 2022-02-05 14:00:00 Outpatient R DANILO [facility] [id number] [facility] 2022-01-25 00:00:00 2022-01-25 00:00:00 [facility] [id number] 2022-01-22 00:00:00 2022-01-22 00:00:00 OFFICE VISIT ESTAB PT LEVEL 4 STLMLC STLC [id number] [facility] 2022-01-22 00:00:00 2022-01-22 00:00:00 [facility]AL [facility] STLC STLC [id number] [facility] 2022-01-10 00:00:00 2022-01-10 00:00:00 Outpatient R DANILO EDWIN [facility] [id number] [facility] 2021-12-08 00:00:00 2021-12-08 00:00:00 Anisa Contreras [facility] .840.114 350.1.13.10 4.2.7.2.686 [id number] [facility] 2021-10-16 00:00:00 2021-10-16 00:00:00 OFFICE VISIT ESTAB PT LEVEL 4 STLMLC STLMLC [id number] [facility] 2021-10-11 06:36:00 2021-10-11 08:50:00 Hospital Encounter Divya Ruvalcaba [facility] 1.114 350.1.13.10 4.2.7.2.686 [id number] [facility] 2021-10-11 06:36:00 2021-10-11 08:50:00 Outpatient R DIVYA [facility]VALC[facility] [id number] [facility] 2021-10-11 08:00:00 2021-10-11 08:34:00 Surgery Divya Ruvalcaba [facility] 1.114 350.1.13.10 4.2.7.2.686 [id number] [facility] 2021-10-09 11:30:00 2021-10-09 11:30:00 Outpatient R DIVYA RUVALCABA [facility] [id number] [facility] 2021-10-08 00:00:00 2021-10-08 00:00:00 Orders Only Doctor Unassigned, [place] [facility] 1.114 350.1.13.10 4.2.7.2.686 [id number] [facility] 2021-09-13 07:19:00 2021-09-13 10:06:00 Hospital Encounter Divya Ruvalcaba [facility] 1.114 350.1.13.10 4.2.7.2.686 [id number] [facility] 2021-09-13 09:14:00 2021-09-13 09:51:00 Surgery Divya Ruvalcaba [facility] 1.2.840.114 350.1.13.10 4.2.7.2.686 [id number] [facility] 2021-09-11 15:00:00 2021-09-11 15:00:00 Outpatient DIVYA PIERSON [facility] [id number] [facility] 2021-09-11 13:57:39 2021-09-11 14:12:39 Laboratory Only Only, Adc Test Divya Ruvalcaba [facility] 1..114 350.1.13.10 4.2.7.2.686 [id number] [facility] 2021-09-10 00:00:00 2021-09-10 00:00:00 Orders Only Doctor Unassigned, [place] [facility] 1.114 350.1.13.10 4.2.7.2.686 [id number] [facility] 2021-09-04 16:12:51 2021-09-04 16:27:51 Photolithographer Visit Pob, Adc Lab Main Divya Ruvalcaba [facility] Professio Replaced by [facility] 1.114 350.1.13.10 4.2.7.2.686 [id number] [facility] 2021-09-04 16:15:00 2021-09-04 16:15:00 Outpatient Debra RUVALCABA DIVYA [facility] [id number] [facility] 2021-08-21 00:00:00 2021-08-21 00:00:00 OFFICE VISIT ESTAB PT LEVEL 4 STLMLC STLMLC [id number] [facility] 2021-07-12 00:00:00 2021-07-12 00:00:00 Edwin Sinha R [facility] 1..114 350.1.13.10 4.2.7.2.686 [id number] [facility] 2021-07-10 13:10:23 2021-07-10 13:40:23 Office Visit Edwin Woods [facility] 1.114 350.1.13.10 4.2.7.2.686 [id number] [facility] 2021-07-10 13:00:00 2021-07-10 13:00:00 Outpatient R EDWIN WOODS [facility] [id number] [facility] 2021-06-19 11:57:23 2021-06-19 13:30:49 Office Visit Ishmael Woodsrique [facility] 1.114 350.1.13.10 4.2.7.2.686 [id number] [facility] 2021-06-19 00:00:00 2021-06-19 00:00:00 Outpatient R EDWIN WOODS [facility] [id number] [facility] 2021-06-13 00:00:00 2021-06-13 00:00:00 [facility].114 350.1.13.10 4.2.7.2.686 [id number] [facility] 2021-06-12 00:00:00 2021-06-12 00:00:00 Outpatient R EDWIN WOODS [facility] [id number] [facility] 2021-06-05 00:00:00 2021-06-05 00:00:00 Orders Only Doctor Unassigned, [place] [facility] 1.114 350.1.13.10 4.2.7.2.686 [id number] [facility] 2021-06-04 00:00:00 2021-06-04 00:00:00 Case Management Anisa Jacob [facility] 1.114 350.1.13.10 4.2.7.2.686 [id number] [facility] 2021-05-30 10:39:57 2021-05-30 11:52:22 Office Visit Edwin Woods [facility] 1.2.840.114 350.1.13.10 4.2.7.2.686 [id number] [facility] 2021-05-30 11:00:00 2021-05-30 11:00:00 Outpatient R EDWIN WOODS [facility] [id number] [facility] 2021-05-29 00:00:00 2021-05-29 00:00:00 Telephone Dorina [facility] 1.2.840.114 350.1.13.10 4.2.7.2.686 [id number] [facility] 2021-05-28 07:28:00 2021-05-28 16:00:00 Hospital Encounter [facility] 1.2.840.114 350.1.13.10 4.2.7.2.686 [id number] [facility] 2021-05-28 10:27:00 2021-05-28 12:52:00 Surgery [facility] 1.2.840.114 350.1.13.10 4.2.7.2.686 [id number] [facility] 2021-05-28 00:00:00 2021-05-28 00:00:00 Orders Only Doctor Unassigned, [place] [facility] 1.2.840.114 350.1.13.10 4.2.7.2.686 [id number] [facility] 2021-05-24 00:00:00 2021-05-24 00:00:00 OFFICE VISIT ESTAB PT LEVEL 4 STLMLC STLMLC [id number] [facility] 2021-05-17 14:18:00 2021-05-17 19:15:00 Hospital Encounter NidiaAnisa 1.2.840.1 [id number] 3.104.2.7 .3.488706 .8 [id number] [facility] 2021-05-17 18:49:43 2021-05-17 18:49:43 Anesthesia Event AdriánmateoAndreihakan DerekYesenia Mcnulty 1.2.840.1 05560.1.1 3.104.2.7 .3.650554 .8 [id number] [facility] 2021-05-17 00:00:00 2021-05-17 00:00:00 Orders Only Doctor Unassigned, [place] [facility] 1.2.840.114 350.1.13.10 4.2.7.2.686 [id number] [facility] 2021-05-14 00:00:00 2021-05-14 00:00:00 Travel 1.2.840.1 06062.1.1 3.104.2.7 .3.179769 .8 1.2.840.114 350.1.13.10 4.2.7.3.698 [id number] [facility] 2021-04-26 00:00:00 2021-04-26 00:00:00 Outpatient STLMLC STLC [id number] [facility] 2021-04-24 08:26:32 2021-04-24 09:33:54 Office Visit Anisa Jacob 1.2.840.1 04141.1.1 3.104.2.7 .3.471101 .8 [id number] [facility] 2021-04-24 08:30:00 2021-04-24 08:30:00 Outpatient R ANISA JACOB [facility] [id number] [facility] 2021-04-24 00:00:00 2021-04-24 00:00:00 Travel 1.2.840.1 [id number] 3.104.2.7 .3.338723 .8 1.2.840.114 350.1.13.10 4.2.7.3.698 [id number] [facility] 2021-04-18 00:00:00 2021-04-18 00:00:00 Orders Only Doctor Unassigned, Linton 1.2.840.1 70528.1.1 3.104.2.7 .3.602683 .8 [id number] [facility] 2021-04-09 00:00:00 2021-04-09 00:00:00 Transition of Care Ankit Benítezele Helen 1.2.840.1 69569.1.1 3.104.2.7 .3.572388 .8 [id number] [facility] 2021-04-05 22:55:00 2021-04-06 19:15:00 Outpatient X ANISA JACOB [facility] [id number] [facility] 2021-04-05 22:55:00 2021-04-06 19:15:00 Emergency Sun Triplett Jennifer 1.2.840.1 20079.1.1 3.104.2.7 .3.336804 .8 [id number] [facility] 2021-04-05 00:00:00 2021-04-05 00:00:00 Travel 1.2.840.1 22749.1.1 3.104.2.7 .3.370667 .8 1.2.840.114 350.1.13.10 4.2.7.3.698 084.8 [id number] [facility] 2021-04-03 10:15:00 2021-04-03 10:15:00 Outpatient R ANISA JACOB [facility] [id number] [facility] 2021-03-30 08:57:04 2021-03-30 10:41:55 Office Visit Anisa Jacob 1.2.840.1 48425.1.1 3.104.2.7 .3.456538 .8 [id number] [facility] 2021-03-30 09:00:00 2021-03-30 09:00:00 Outpatient R ANISA JACOB [facility] [id number] [facility] 2021-03-30 00:00:00 2021-03-30 00:00:00 Orders Only Doctor Unassigned, [place] 1.2.840.1 69919.1.1 3.104.2.7 .3.728332 .8 [id number] [facility] 2021-03-30 00:00:00 2021-03-30 00:00:00 Travel 1.2.840.1 27515.1.1 3.104.2.7 .3.557662 .8 1.2.840.114 350.1.13.10 4.2.7.3.698 084.8 [id number] [facility] 2021-03-15 00:00:00 2021-03-15 00:00:00 Orders Only Doctor Unassigned, [place] 1.2.840.1 51631.1.1 3.104.2.7 .3.355306 .8 [id number] [facility] 2021-03-15 00:00:00 2021-03-15 00:00:00 Orders Only Doctor Unassigned, [place] [facility] 1.2.840.114 350.1.13.10 4.2.7.2.686 [id number] 2021-02-26 00:00:00 2021-02-26 00:00:00 Outpatient STLMLC STLMLC [id number] [facility] 2021-02-19 00:00:00 2021-02-19 00:00:00 Orders Only Doctor Unassigned, [place] [facility] 1.2.840.114 350.1.13.10 4.2.7.2.686 [id number] [facility] 2021-02-19 00:00:00 2021-02-19 00:00:00 Outpatient STLMLC STLMLC [id number] [facility] 2021-02-16 00:00:00 2021-02-16 00:00:00 Outpatient STLMLC STLMLC [id number] [facility] 2021-02-15 00:00:00 2021-02-15 00:00:00 Outpatient STLMLC STLMLC [id number] [facility] 2019-01-21 10:45:00 2019-01-21 10:45:[address] [facility] [id number] [facility] 2019-01-14 13:44:00 2019-01-14 13:44:[address] [facility] [id number] [facility] 2018-08-07 11:01:00 2018-08-07 11:01:00 [address] [facility] [id number] [facility] 2018-08-06 15:30:00 2018-08-06 15:30:00 [address] [facility] [id number] [facility] 2018-07-13 23:04:00 2018-07-13 23:04:00 [facility] [id number] [facility] 2018-07-09 10:00:00 2018-07-09 10:00:00 [facility] [facility] [id number] [facility] 2018-04-09 21:34:00 2018-04-09 21:34:[address] [facility] [id number] [facility] 2018-04-09 13:15:00 2018-04-09 13:15:00 [facility] [id number] [facility] Results Test Description Test Time Test Comments Results Result Co mments Source HGB [id number] 09:59:00* Test Item Value Reference Range Interpretation Comme nts HEMOGLOBIN (test code = HGB) 7.4 g/dL 11.0-15.0 L HEMATOCRIT (test code = HCT) 23.1 % 33.0-45.0 L BASIC METABOLIC [id number] 08:18:00* Test Item Value Reference Range Interpretation Comme nts SODIUM (test code = NA) 144 mEq/L 134-147 N POTASSIUM (test code = K) 4.0 mEq/L 3.4-5.0 N CHLORIDE (test code = CL) 108 mEq/L 100-108 N CARBON DIOXIDE (test code = CO2) 29 mEq/l 21-33 N ANION GAP (test code = GAP) 11 0-20 N GLUCOSE (test code = GLU) 201 mg/dL 77-141 H BLOOD UREA NITROGEN (test code = BUN) 29 mg/dL 7-25 H GLOMERULAR FILTRATION RATE (test [...] 0.6-1.3 N CALCIUM (test code = CA) 9.3 mg/dL 8.0-10.5 GLUCOSE [id number] 08:07:00* Test Item Value Reference Range Interpretation Comme nts GLUCOSE BEDSIDE (test code = GLUBED) 186 MG/DL 70-110 H Performed by cer tified grader operator at [facility] CBC W/AUTO [id number] 07:51:00* Test Item Value Reference Range Interpretation Comme nts WHITE BLOOD CELL (test code = WBC) 8.8 x10 3/uL 4.5-11.0 N RED BLOOD CELL (test code = RBC) 2.34 x10 6/uL 3.54-5.02 L HEMOGLOBIN (test code = HGB) 6.8 g/dL 11.0-15.0 L HEMATOCRIT (test code = HCT) 20.7 % 33.0-45.0 L MEAN CELL VOLUME (test code = MCV) 88.5 fL 81.0-99.0 MEAN CELL HGB (test code = MCH) 29.1 pg 27.0-33.0 N MEAN CELL HGB CONCETRATION (test code = MCHC) 32.9 g/dL 33.0-37.0 L RED CELL DISTRIBUTION WIDTH CV (test code = RDW) 12.2 % 11.5-14.5 N RED CELL DISTRIBUTION WIDTH SD (test code = RDW-SD) 39.0 fL 37.0-54.0 N PLATELET COUNT (test code = PLT) 213 x10 3/uL 150-400 N MEAN PLATELET VOLUME (test c ode = MPV) 10.9 fL 7.0-9.0 H NEUTROPHIL % (test code = NT%) 65.1 % 56.0-77.0 N IMMATURE GRANULOCYTE % (test code = IG%) 0.3 % 0.0-2.0 N LYMPHOCYTE % (test code = LY%) 22.6 % 14.0-32.0 N MONOCYTE % (test code = MO%) 8.9 % 4.8-9.0 N EOSINOPHIL % (test code = EO%) 2.8 % 0.3-3.7 N BASOPHIL % (test code = BA%) 0.3 % 0.0-2.0 N NUCLEATED RBC % (test code = NRBC%) 0.0 % 0-0 N NEUTROPHIL # (test code = NT#) 5.73 x10 3/uL 2.0-7.6 N IMMATURE GRANULOCYTE # (test code = IG#) 0.03 x10 3/uL 0.00-0.03 N LYMPHOCYTE # (test code = LY#) 1.99 x10 3/uL 1.0-3.8 N MONOCYTE # (test code = MO#) 0.78 x10 3/uL 0.1-0.8 N EOSINOPHIL # (test code = EO#) 0.25 x10 3/uL 0.0-0.2 H BASOPHIL # (test code = BA#) 0.03 x10 3/uL 0.0-0.2 N NUCLEATED RBC # (test code = NRBC#) 0.00 x10 3/uL 0.0-0.1 N GLUCOSE [id number] 21:07:00* Test Item Value Reference Range Interpretation Comme nts GLUCOSE BEDSIDE (test code = GLUBED) 146 MG/DL 70-110 H Performed by cer tified grader operator at [facility] GLUCOSE [id number] 17:10:00* Test Item Value Reference Range Interpretation Comme nts GLUCOSE BEDSIDE (test code = GLUBED) 193 MG/DL 70-110 H Performed by cer tified grader operator at [facility] GLUCOSE [id number] 11:26:00* Test Item Value Reference Range Interpretation Comme nts GLUCOSE BEDSIDE (test code = GLUBED) 220 MG/DL 70-110 H Performed by cer tified grader operator at [facility] B-TYPE NATRIURETIC [id number] 10:52:00* Test Item Value Reference Range Interpretation Comme [facility] B-TYPE NATRIURETIC PEPTIDE ( test code = BNP) 299.0 PG/ML 0-100 H COMMENTS: add to am [id number] 08:38:00* Test Item Value Reference Range Interpretation Comme nts HGBA1C% (test code = HGBA1C%) 8.3 %A1C 4.8-6.0 H LIPID PROFILE (CORONARY RISK)2024-11-19 08:38:00* Test Item Value Reference Range Interpretation Comme nts TRIGLYCERIDES (test code = TRIG) 203 mg/dL 40-150 H CHOLESTEROL (test code = CHOL) 155 mg/dL <200 CHOLESTEROL/HDL RATIO (test code = CHOLHDL) 4.60 RATIO 3.27-4.44 H RISK ASSOCIATED WITH CHOL/HDL RATIOS: RISK MALE FEMALE1/2 AVERAGE 3.43 3.27AVERAGE 4.97 4.442X AVERAGE 9.55 7.053X AVERAGE 23.39 11.04 NOTE THAT THE REFERENCE VALUE IS RELATEDTO RISK LEVELS RECOMMENDED BY THE NATL.HEART, LUNG, AND BLOOD INST. HDL CHOLESTEROL (test code = HDL) 33.7 MG/DL 40-60 L HDL Interpreta tion < 40.0 mg/dL Low (undesirable, high risk)> 60.0 mg/dL High (desirable, low risk) Reference interval for healthy adults was established by theNational Cholesterol Education Program (NCEP). LIPOPROTEIN LDL (test code = LDL) 99.0 mg/dL 0-100 N <100 [id number] 0-129 NEAR OPTIMAL/ABOVE [id number] HIGH>DB=397 VERY HIGH*Guidelines provided by the National Cholesterol EducationProgram Adult Treatment Panel III THYROID STIMULATING [id number] 08:38:00* Test Item Value Reference Range Interpretation Comme nts THYROID STIMULATING HORMONE (test code = TSH) 0.44 0.42-5.47 N Result s in rolf-International Units/mL CBC W/AUTO [id number] 07:18:00* Test Item Value Reference Range Interpretation Comme nts WHITE BLOOD CELL (test code = WBC) 8.7 x10 3/uL 4.5-11.0 N RED BLOOD CELL (test code = RBC) 2.66 x10 6/uL 3.54-5.02 L HEMOGLOBIN (test code = HGB) 7.8 g/dL 11.0-15.0 L HEMATOCRIT (test code = HCT) 24.6 % 33.0-45.0 L MEAN CELL VOLUME (test code = MCV) 92.5 fL 81.0-99.0 N MEAN CELL HGB (test code = MCH) 29.3 pg 27.0-33.0 N MEAN CELL HGB CONCETRATION (test code = MCHC) 31.7 g/dL 33.0-37.0 L RED CELL DISTRIBUTION WIDTH CV (test code = RDW) 12.2 % 11.5-14.5 N RED CELL DISTRIBUTION WIDTH SD (test code = RDW-SD) 41.0 fL 37.0-54.0 N PLATELET COUNT (test code = PLT) 208 x10 3/uL 150-400 N MEAN PLATELET VOLUME (test c ode = MPV) 10.7 fL 7.0-9.0 H NEUTROPHIL % (test code = NT%) 65.7 % 56.0-77.0 N IMMATURE GRANULOCYTE % (test code = IG%) 0.5 % 0.0-2.0 N LYMPHOCYTE % (test code = LY%) 23.6 % 14.0-32.0 N MONOCYTE % (test code = MO%) 8.1 % 4.8-9.0 N EOSINOPHIL % (test code = EO%) 1.8 % 0.3-3.7 N BASOPHIL % (test code = BA%) 0.3 % 0.0-2.0 N NUCLEATED RBC % (test code = NRBC%) 0.0 % 0-0 N NEUTROPHIL # (test code = NT#) 5.72 x10 3/uL 2.0-7.6 N IMMATURE GRANULOCYTE # (test code = IG#) 0.04 x10 3/uL 0.00-0.03 H LYMPHOCYTE # (test code = LY#) 2.06 x10 3/uL 1.0-3.8 N MONOCYTE # (test code = MO#) 0.71 x10 3/uL 0.1-0.8 N EOSINOPHIL # (test code = EO#) 0.16 x10 3/uL 0.0-0.2 N BASOPHIL # (test code = BA#) 0.03 x10 3/uL 0.0-0.2 N NUCLEATED RBC # (test code = NRBC#) 0.00 x10 3/uL 0.0-0.1 N BASIC METABOLIC [id number] 05:11:00* Test Item Value Reference Range Interpretation Comme nts SODIUM (test code = NA) 143 mEq/L 134-147 N POTASSIUM (test code = K) 3.8 mEq/L 3.4-5.0 N CHLORIDE (test code = CL) 110 mEq/L 100-108 H CARBON DIOXIDE (test code = CO2) 27 mEq/l 21-33 N ANION GAP (test code = GAP) 10 0-20 N GLUCOSE (test code = GLU) 168 mg/dL 77-141 H BLOOD UREA NITROGEN (test code = BUN) 20 mg/dL 7-25 N GLOMERULAR FILTRATION RATE (test code = GFR) 69.6 80-90 L The Glomerular Filtration Rate is [...] <18 years. CREATININE (test code = CREAT) 0.9 mg/dL 0.6-1.3 N CALCIUM (test code = CA) 7.3 mg/dL 8.0-10.5 L [id number] 05:11:00* Test Item Value Reference Range Interpretation Comme nts MAGNESIUM (test code = MAG) 2.21 mg/dL 1.6-2.6 N GLUCOSE [id number] 21:29:00* Test Item Value Reference Range Interpretation Comme nts GLUCOSE BEDSIDE (test code = GLUBED) 178 MG/DL 70-110 H Performed by deanna siddiqui at [facility] TROP-I HIGH [id number] 16:37:00* Test Item Value Reference Range Interpretation Comme [facility] TROP-I HIGH SENSITIVITY (test code = TROPIHS) 442 ng/L 0-34 HH CAUTION: Units o f the current test methodology (ng/L) differfrom the prior test methodology (ng/mL) by a factor of 1000. 99th Percentile Upper Reference Limit (URL): Females: 34 ng/LMales: 54 ng/L In order to distinguish acute elevations of high sensitivitytroponin from other clinical conditions, the FourthUniversal Definition of Myocardial Infarction stressesclinical assessment and the demonstration of a rise and/orfall in serial troponin results above the URL. These results were obtained using Siemens [employer]ell[employer]okup IM TnIHreagent. Results from different methodologies should not becompared to one another as quantitative results and URLs mayvary by method. TROP-I HIGH [id number] 14:08:00* Test Item Value Reference Range Interpretation Comme nts TROP-I HIGH SENSITIVITY (test code = TROPIHS) 643 ng/L 0-34 HH CAUTION: Units o f the current test methodology (ng/L) differfrom the prior test methodology (ng/mL) by a factor of 1000. 99th Percentile Upper Reference Limit (URL): Females: 34 ng/LMales: 54 ng/L In order to distinguish acute elevations of high sensitivitytroponin from other clinical conditions, the FourthUniversal Definition of Myocardial Infarction stressesclinical assessment and the demonstration of a rise and/orfall in serial troponin results above the URL. These results were obtained using Siemens AteD[employer] IM TnIHreagent. Results from different methodologies should not becompared to one another as quantitative results and URLs mayvary by method. LIPOPROTEIN [id number] 12:04:00* Test Item Value Reference Range Interpretation Comme nts LIPOPROTEIN LDL (test code = LDL) 86.0 mg/dL 0-100 N <100 NCOOFMG94 0-129 NEAR OPTIMAL/ABOVE [id number] HIGH>ZW=848 VERY HIGH*Guidelines provided by the National Cholesterol EducationProgram Adult Treatment Panel III TROP-I HIGH [id number] 11:45:00* Test Item Value Reference Range Interpretation Comme nts TROP-I HIGH SENSITIVITY (test code = TROPIHS) 539 ng/L 0-34 HH Critical result called to JENY BOOTH, RNby [id number] at 1145 11/18/24Nurse read back result and tech confirmed it's correct? YESCAUTION: Units of the current test methodology (ng/L) differfrom the prior test methodology (ng/mL) by a factor of 1000. 99th Percentile Upper Reference Limit (URL): Females: 34 ng/LMales: 54 ng/L In order to distinguish acute elevations of high sensitivitytroponin from other clinical conditions, the FourthUniversal Definition of Myocardial Infarction stressesclinical assessment and the demonstration of a rise and/orfall in serial troponin results above the URL. These results were obtained using Siemens AtellWokup IM TnIHreagent. Results from different methodologies should not becompared to one another as quantitative results and URLs mayvary by method. [id number] 13:19:00* Test Item Value Reference Range Interpretation Comments SURGICAL (test code = SR) RUN DATE: 11/17/24 [place] - LAB PAGE 1 RUN TIME: 1319 Specimen Inquiry RUN USER: INTERFACE PATIENT: STEFF SMILEY LOC: ALLI U #: [id number] AGE/SX: 68/F ROOM: [facility] [place] [facility] RE11/15/24[facility] DR: Sara Gerard MD : 55 BED: 1 DIS: 11/16/24 STATUS: DIS IN TLOC: SPEC #: [id number] RECD: 11/16/24-1211 STATUS: HAZEL SOTELO #: [id number] RIKI: 11/15/24- SUBM DR: Sara Gerard MD ENTERED: 11/16/24 SP TYPE: SURGICAL OTHR DR: Lloyd Mackenzie MD ORDERED: [id number], [id number], ANATOMIC SPEC COPIES TO: Sara Gerard MD [address] [place] [address] Lloyd Mackenzie MD [address] [place] [address] PROCEDURES: 75773 (11/17/24-8) 62238 (11/16/24-1211) TISSUES: A. CAROTID PLAQUE WITH DECAL CLINICAL HISTORY SAME FINAL DIAGNOSIS Specimen submitted as "left carotid plaque", endarterectomy: -Arterial wall with calcification, cholesterol crystal deposition, and fibrotic change,compatible with carotid plaque GROSS DESCRIPTION Received in formalin labeled "carotid plaque" is a 2 x 1.5 x 0.5 cm aggregate of 2yellow-medina fragments of plaque. The specimen is serially section and representativesections are submitted in cassette A, following decalcification. Technical component performed at [facility],[address] [place] [address], [place] [address] Unless gross only, the diagnosis is based upon microscopic examination.Immunohistochemistry: This test was developed and its performance characteristicsdetermined by this laboratory. It has not been approved nor does it need approvalby the [place] FDA. Appropriate positive and negative controls are reviewed and judged CONTINUED ON NEXT PAGE RUN DATE: 11/17/24 [place] - LAB PAGE 2 RUN TIME: 9 Specimen Inquiry RUN USER: INTERFACE SPEC #: [id number] PATIENT: STEFF SMILEY #[id number] (Continued) - GROSS DESCRIPTION (Continued) to be acceptable for performedimmunohistochemistry and/or special stains. This laboratoryis certified under the Clinical Laboratory Improvement Amendments (CLIA-88) as qualified toperform high complexity clinical laboratory testing. MICROSCOPIC DESCRIPTION A microscopic examination was performed. CLINICAL INFORMATION CAD Signed SIGNATURE ON MELONY NietoRachel 11/17/24 1319 END OF REPORT GLUCOSE [id number] 11:47:00* Test Item Value Reference Range Interpretation Comme nts GLUCOSE BEDSIDE (test code = GLUBED) 132 MG/DL 70-110 H Performed by cer flakito grader operator at [facility] HGB [id number] 09:33:00* Test Item Value Reference Range Interpretation Comme nts HEMOGLOBIN (test code = HGB) 7.3 g/dL 11.0-15.0 L HEMATOCRIT (test code = HCT) 22.4 % 33.0-45.0 L BASIC METABOLIC [id number] 05:23:00* Test Item Value Reference Range Interpretation [...] CA) 8.0 mg/dL 8.0-10.5 N CBC W/AUTO [id number] 05:12:00* Test Item Value Reference Range Interpretation [...] NRBC#) 0.00 x10 3/uL 0.0-0.1 N GLUCOSE [id number] 02:26:00* Test Item Value Reference Range Interpretation Comme nts GLUCOSE BEDSIDE (test code = GLUBED) 215 MG/DL 70-110 H Performed by cer tified grader operator at [facility] GLUCOSE [id number] 20:42:00* Test Item Value Reference Range Interpretation Comme [facility] GLUCOSE BEDSIDE (test code = GLUBED) 222 MG/DL 70-110 H Performed by cer tified grader operator at [facility] POC ARTERIAL BLOOD [id number] 20:28:00* Test Item Value Reference Range Interpretation Comme nts POC ARTERIAL BLOOD GAS PH (test code = POCPHA) 7.347 7.35-7.45 L POC ARTERIAL BLOOD GAS PCO2 (test code = OGVHOY5J) 45.5 mmHg 35.0-45 H POC TCO2 ARTERIAL (test code = POCTCO2) 26.4 22-29 N POC ARTERIAL BLOOD GAS PO2 (test code = WZLHW4V) 85.9 mmHg 80-100.0 N POC HCO3 ARTERIAL (test code = SLAISX9J) 25.0 MMOL/L 22.0-26.0 N POC BASE EXCESS (test code = POCBEA) -0.8 MMOL/L See_Comment L [Automated messa ge] The system which generated this result transmitted reference range: 0-+/-4. The reference range was not used to interpret this result as normal/abnormal. POC O2 SATURATION (test code = POCO2S) 95.9 % 90-100 N FIO2 (test code = FIO2A) 21 % PaO2/FiO2 (test code = VXE2KWA8) 409.04 mm/Hg ABG DELIVERY (test code = ERIN) Room Air ABG TEMPERATURE (test code = TEMPA) 97.9 F ABG SITE (test code = SITEA) Art Line BASIC METABOLIC [id number] 20:28:00* Test Item Value Reference Range Interpretation [...] = POCGLU) 292 MG/DL 70-110 H HEMOGLOBIN [id number] 20:28:00* Test Item Value Reference Range Interpretation Comme nts HEMOGLOBIN ABG (test code = HGB/ABG) 8.5 G/DL 11.0-15.0 L [id number] 20:28:00* Test Item Value Reference Range Interpretation Comme nts HEMATOCRIT (test code = HCT/ABG) 25 % 33-45 L POC LACTIC [id number] 20:28:00* Test Item Value Reference Range Interpretation Comme nts POC LACTIC ACID (test code = POCLAC) 1.0 mmol/l 0.9-1.7 N BASIC METABOLIC [id number] 18:27:00* Test Item Value Reference Range Interpretation [...] = CA) 8.1 mg/dL 8.0-10.5 N HGB [id number] 18:23:00* Test Item Value Reference Range Interpretation Comme nts HEMOGLOBIN (test code = HGB) 8.3 g/dL 11.0-15.0 L HEMATOCRIT (test code = HCT) 24.6 % 33.0-45.0 L [id number] 17:07:00* Test Item Value Reference Range Interpretation Comme nts ACT-ISTAT (test code = ACTI) 279 SEC 74-137 H Performed by cer tified grader operator at [facility] LIPID PROFILE (CORONARY RISK)2024-11-15 07:00:00* Test [...] = LDL) 129.0 mg/dL 0-100 H <100 DVDJSZO44 0-129 NEAR OPTIMAL/ABOVE [id number] HIGH>FP=050 VERY HIGH*Guidelines provided by the National Cholesterol EducationProgram Adult Treatment Panel III GLUCOSE [id number] 06:24:00* Test Item Value Reference Range Interpretation Comme nts GLUCOSE BEDSIDE (test code = GLUBED) 230 MG/DL 70-110 H Performed by cer tified grader operator at [facility] UA RFLX MICR CULT IF [id number] 13:14:00* Test Item Value Reference Range Interpretation [...] RiskForSepsis-no oth srcSpecimen Description: CLEAN CATCHCOMPREHENSIVE METABOLIC [id number] 13:12:00* Test Item Value Reference Range Interpretation [...] ALKP) 75 IUnit/L 20-125 N CBC W/AUTO [id number] 13:11:00* Test Item Value Reference Range Interpretation [...] NRBC#) 0.00 x10 3/uL 0.0-0.1 N PROTHROMBIN [id number] 13:02:00* Test Item Value Reference Range Interpretation [...] Infarction (to prevent recurrent infarct). THROMBOPLASTIN TIME [id number] 13:02:00* Test Item Value Reference Range Interpretation Pollo galloway THROMBOPLASTIN TIME PARTIAL (test code = PTT) 27.7 Seconds 25.0-39.5 N Therapeutic Rang e: 58.8 - 96.0 Seconds Effective 09/24/2024 HEMOGLOBIN [id number] 00:00:00* Test Item Value Reference Range Interpretation Comme nts A1C (test code = 4548-4) 8.3 CBC W/AUTO [id number] 00:00:00* Test Item Value Reference Range Interpretation Comme nts NUCLEATED RBCS (test code = 48832-6) 0.0 /100 WBC'S See_Comment [Automated [employer]] The system which generated this result transmitted reference range: 0.0 /100 WBC'S. The reference range was not used to interpret this result as normal/abnormal. ABSOLUTE EOSINOPHILS (test code = 97767-5) 0.12 K/UL See_Comment [Automated [employer]] The system which generated this result transmitted reference range: 0.00-0.50 K/UL. The reference range was not used to interpret this result as normal/abnormal. ABSOLUTE LYMPHOCYTES (test code = 94301-1) 2.17 K/UL See_Comment [Automated [employer]] The system which generated this result transmitted reference range: 1.00-4.00 K/UL. The reference range was not used to interpret this result as normal/abnormal. ABSOLUTE MONOCYTES (test code = 04589-7) 0.48 K/UL See_Comment [Automated [employer]] The system which generated this result transmitted reference range: 0.20-1.00 K/UL. The reference range was not used to interpret this result as normal/abnormal. ABSOLUTE NEUTROPHILS (test code = 76559-1) 5.88 K/UL See_Comment [Automated [employer]] The system which generated this result transmitted reference range: 1.50-7.50 K/UL. The reference range was not used to interpret this result as normal/abnormal. BASOPHILS (test code = 08440-6) 0.6 % EOSINOPHILS (test code = 62564-0) 1.4 % HEMATOCRIT (test code = 42569-0) 35.7 % See_Comment [Automated messa ge] The [...] result as normal/abnormal. LYMPHOCYTES (test code = 16664-9) 24.9 % MCH (test code = 42692-5) 29.8 PG See_Comment [Automated messa ge] The system which generated this result transmitted reference range: 25.0-33.0 PG. The reference range was not used to interpret this result as normal/abnormal. MCHC (test code = 11156-2) 34.2 G/DL See_Comment [Automated messa ge] The system which generated this result transmitted reference range: 31.0-36.0 G/DL. The reference range was not used to interpret this result as normal/abnormal. MCV (test code = 39631-6) 87.1 fL See_Comment [Automated messa ge] The system which generated this result transmitted reference range: 80.0-99.0 fL. The reference range was not used to interpret this result as normal/abnormal. MONOCYTES (test code = 82965-2) 5.5 % NEUTROPHILS (test code = 48773-2) 67.4 % PLATELET COUNT (test code = 83598-3) 274 K/UL See_Comment [Automated messa ge] The system which generated this result transmitted reference range: 130-400 K/UL. The reference range was not used to interpret this result as normal/abnormal. RBC (test code = 01154-6) 4.10 M/UL See_Comment [Automated messa ge] The system which generated this result transmitted reference range: 3.80-5.40 M/UL. The reference range was not used to interpret this result as normal/abnormal. RDW (test code = 31466-0) 12.9 % See_Comment [Automated messa ge] The system which generated this result transmitted reference range: 11.5-15.0 %. The reference range was not used to interpret this result as normal/abnormal. WBC (test code = 58187-9) 8.7 K/UL See_Comment [Automated messa ge] The system which generated this result transmitted reference range: 3.5-11.0 K/UL. The reference range was not used to interpret this result as normal/abnormal. HEMOGLOBIN [id number] 00:00:00* Test Item Value Reference Range Interpretation Comme nts A1C (test code = 4548-4) 14.0 HEMOGLOBIN [id number] 00:00:00* Test Item Value Reference Range Interpretation Comme nts A1C (test code = 4548-4) 10.8 HEMOGLOBIN [id number] 00:00:00* Test Item Value Reference Range Interpretation Comme nts A1C (test code = 4548-4) 8.2% HEMOGLOBIN [id number] 00:00:00* Test Item Value Reference Range Interpretation Comme nts A1C (test code = 4548-4) 8.6 DEXA, BONE DENSITY AXIAL SKELEDEXA, BONE DENSITY AXIAL RQMNP8T SCR TANYA BILAT W/CAD3D SCR TANYA BILAT W/CAD Notes Date/Time Note Provider Source 2024-11-20 08:50:00 [id number] [place] [address] PATIENT NAME: STEFF SMILEY ADMIT DATE: 11/18/24 ACCOUNT NO: [id number] ROOM NO: [id number] AGE: 68 REPORT TYPE: eECHOCARDIOGRAM REPORT SEX: F ADMITTING PHYSICIAN:Sara Gerard MD ATTENDING PHYSICIAN:Sara Gerard MD *[place] [address] Transthoracic Echocardiogram Patient: Steff Smiley Study Date: 11/18/2024 BP: 141 / 61 URN: [id number] Location: : 1955 Age: 68 Gender: F Height: 72 in / 182.9 cm Weight: 100 lb / 45.4 kg BMI/BSA: 13.6 kg/m 2 / 1.49 m 2 *Ordering Physician: * Truman Mondragon *Interpreting Physician: * Loretta Samson MD *Track Repair Worker: * MARIAMA Norris Indications: NSTEMI. Study data: Transthoracic echocardiogram. Procedure: A transthoracic echocardiogram was performed. Images were obtained using a [employer] cardiac ultrasound machine. Image quality was good. Complete 2D, complete spectral Doppler, and color Doppler. Location: Bedside. Patient status: Inpatient. Patient room number: 2205. Study status: [facility]. Heart rate: 94 bpm. Findings Left ventricle: The cavity size is normal. Wall thickness is normal. Systolic function is normal. The estimated ejection fraction is 55-60%. Wall motion is normal; there are no regional wall motion abnormalities. Grade II diastolic dysfunction. PATIENT NAME: STEFF SMILEY Right ventricle: The cavity size is normal. Systolic function is normal. Systolic pressure is increased. TAPSE is 2.5 cm. Estimated RVSP is 41 mmHg. Left atrium: The atrium is mildly dilated. Right atrium: The atrium is normal in size. Aorta: Aortic root: The root is normal-sized. Aortic valve: The valve is structurally normal. The valve is trileaflet. There is no evidence of stenosis. There is no regurgitation. Mitral valve: The valve is structurally normal. There is no evidence of stenosis. There is mild regurgitation. Tricuspid valve: The valve is structurally normal. There is mild regurgitation. Pulmonic valve: The valve is structurally normal. There is no regurgitation. Pericardium: There is no pericardial effusion. Pulmonary arteries: The main pulmonary artery is normal-sized. Systemic veins: Inferior vena cava: The IVC is normal-sized. Respirophasic diameter changes are in the normal range (>= 50%). Measurements Left ventricle Value Ref CESAR, LAX 3.3 cm 3.8 - 5.2 ESD, LAX 2.4 cm 2.2 - 3.5 FS, LAX 28 % 27 - 45 CESAR major ax, A2C 7.7 cm --------- ESD major ax, A2C 6.7 cm --------- IVS, ED 1.3 cm 0.6 - 0.9 PW, ED 1.1 cm 0.6 - 0.9 IVS/PW, ED 1.24 --------- EF 55 % 54 - 74 E', lat jessie, TDI 10.1 cm/sec >=10.0 E/e', lat jessie, TDI 9 <=13 E', med jessie, TDI 7.6 cm/sec >=7.0 E/e', med jessie, TDI 12 --------- E', avg, TDI 8.8 cm/sec --------- E/e', avg, TDI 10 <=14 LVOT Value Ref Diam, S 1.85 cm --------- Area 2.7 cm 2 --------- Peak karrie, S 1.15 m/sec --------- Mean karrie, S 0.78 m/sec --------- VTI, S 22.6 cm --------- Peak grad, S 5 mm Hg --------- Mean grad, S 3 mm Hg --------- SV 61 ml --------- Qs 5.68 L/min --------- Qs/bsa 3.8 L/(min-m 2) --------- SV/bsa 41 ml/m 2 --------- Right ventricle Value Ref TAPSE, MM 2.5 cm >=1.7 PATIENT NAME: STEFF SMILEY Pressure, S 41 mm Hg --------- RVOT Value Ref Peak v, S 1.09 m/sec --------- Peak grad, S 5 mm Hg --------- Left atrium Value Ref AP dim, ES 2.3 cm 2.7 - 3.8 Vol/bsa, S 29 ml/m 2 16 - 34 Vol/bsa, ES, 1-p A4C 27 ml/m 2 11 - 40 Vol, ES, 2-p 43 ml --------- Vol/bsa, ES, 2-p 29 ml/m 2 16 - 34 Vol/bsa, ES, A/L 29 ml/m 2 16 - 34 Right atrium Value Ref Area, ES 13 cm 2 10 - 18 SI dim, ES, A4C 4.5 cm 3.4 - 5.3 Vol, ES, A/L 31 ml --------- Vol, ES, 1-p A4C 30 ml --------- Vol/bsa, ES, 1-p A4C 20 ml/m 2 9 - 33 Aortic valve Value Ref Peak v, S 1.8 m/sec --------- Mean v, S 1.19 m/sec --------- VTI, S 35.4 cm --------- Mean grad, S 6 mm Hg --------- Peak grad, S 13.0 mm Hg --------- LVOT/AV, VTI ratio 0.64 --------- JENNIFER, VTI 1.72 cm 2 --------- LVOT/AV, Vpeak ratio 0.64 --------- JENNIFER, Vmax 1.72 cm 2 --------- Mitral valve Value Ref Peak E 0.91 m/sec --------- Peak A 1.23 m/sec --------- Decel time 156 ms --------- PHT 38 ms --------- Mean grad, D 3 mm Hg --------- Peak grad, D 5.5 mm Hg --------- Peak E/A ratio 0.74 --------- MVA, PHT 5.8 cm 2 --------- Tricuspid valve Value Ref TR peak v 3.1 m/sec <=2.8 Peak RV-RA grad, S 38 mm Hg --------- Aortic root Value Ref Root diam 2.7 cm 2.3 - 3.8 Pulmonary artery Value Ref Pressure, S 33.3 mm Hg --------- Systemic veins Value Ref Estimated CVP 3 mm Hg --------- PATIENT NAME: STEFF SMIELY Conclusions Summary: 1. Left ventricle: The cavity size is normal. Wall thickness is normal. Systolic function is normal. The estimated ejection fraction is 55-60%. Wall motion is normal; there are no regional wall motion abnormalities. Grade II diastolic dysfunction. 2. Right ventricle: Systolic pressure is increased. TAPSE is 2.5 cm. 3. Left atrium: The atrium is mildly dilated. Electronically signed by Loretta Samson MD 11/20/2024 08:50 at 0850 PATIENT NAME: STEFF SMILEY [facility] 2024-11-20 08:29:00 [facility] ([facility]) Discharge Summary REPORT#:[id number] REPORT STATUS: Signed REPORT INITIALIZATION DATE:11/20/24 TIME: 828 PATIENT: STEFF SMILEY UNIT #: [id number] ROOM/BED: [place] [address] : 55 AGE: 68 SEX: F ATTEND: Sara Gerard MD ADM AUTHOR: Katerine Matamoros APRN REPT SERVICE DT/TIME: 11/20/24828 * ALL edits or amendments must be made on the electronic/computer document * PCP PCP PCP: PCP: Sara Gerard MD Discharge to: home with home health [facility] General Information Discharge date: 11/20/24 Discharge diagnosis: S/P CEA PVD HTN Hospital course: This is a 68-year-old female with a past medical history of hypertension, hyperlipidemia, CKD, type 2 diabetes, peripheral vascular disease who was found to have significant 80% left internal carotid artery stenosis (recently had L CEA on 11/15/24) who initally presented to [facility] for a headache, numbness in bilateral hands, and feeling weak. She was then transferred here to [facility] for continued medical care. At [facility], patient had a CT head, which showed no acute abnormalities. Patient had elevated troponin of 1061.3, and high blood pressure. Patient denies any chest pain or shortness of breath. Patient's blood pressure in the ED is 183 /76, patient given IV hydralazine. Patient denies any double vision, no motor deficits, and is able to move all extremities. Assessment/Plan: 1. Hypertension 2. Carotid stenosis s/p recent L CEA 3. PVD 4. Hyperlipidemia 5. Diabetes Mellitus Admit to inpatient Consult cardiology Consult Neurology Control Blood pressure Neuro Checks Labs reviewed, replace electrolytes as needed Trend troponins Patient seen and examined by Dr. Gerard. 11/19/24 AAOx3, complaints of severe headache still, denies CP and SOB Reviewed labs, replace electrolytes as needed Trops trend, 539, 643, 442 Cardiology following, resume home lisinopril, lipitor, ASA and Plavix Continuous telemetry monitoring, normal sinus rhythm, monitoring BP closely Neurology consulted, keep SBP <140mmHg, migraine cocktail, and for patient to follow up outpatient for an MRI of brain. Continue neuro checks Q4 Tolerating diet, voiding PT/OT, encourage ambulation and all meals OOB Patient has good family support Transfer out of CVIVU to lower acuity floor, CVN1 or CVN2 Patient seen and examined by Dr. Gerard. Discussed plan of care with patient, family, nurse and interdisciplinary team. All questions answered. 11/20/24 Patient alert, awake, oriented, resting comfortable, denies headache, chest pain and shortness of breath Reviewed labs, replace electrolytes as needed Cardiology following, continue lisinopril, lipitor, ASA and Plavix Continuous telemetry monitoring, normal sinus rhythm, monitoring BP closely Tolerating diet, voiding PT/OT, encourage ambulation and all meals OOB Patient has good family support Okay to discharge home today with family support, follow-up in postop clinic in 1 to 2 weeks Follow-up with language therapist primary care in 1 to 2 weeks as well Patient seen and examined by Dr. Gerard. Discussed plan of care with patient, family, nursing team. All questions answered. Consultants: cardiology, neurology Med Rec PCP PCP: PCP: Sara Gerard MD Med Rec Discharge meds: Continue taking these medications: GLIMEPIRIDE (GLIMEPIRIDE) 4 MG TAB 4 MILLIGRAM ORAL TWICE DAILY. LISINOPRIL (ZESTRIL) 10 MG TAB 10 MILLIGRAM ORAL DAILY. FERROUS SULFATE (FEOSOL) 325 MG (65 MG IRON) TAB 325 MILLIGRAM ORAL DAILY. Comments: TAKE 3X/WEEK. IBUPROFEN (MOTRIN) 800 MG TAB 800 MILLIGRAM ORAL DAILY. CLOPIDOGREL (PLAVIX) 75 MG TAB 75 MILLIGRAM ORAL DAILY. Days = 30 Qty = 30 ASPIRIN EC (ECOTRIN) 81 MG TAB.EC 81 MILLIGRAM ORAL DAILY. Days = 30 Qty = 30 traMADol (ULTRAM) 50 MG TAB 50 MILLIGRAM ORAL EVERY 6 HOURS NEEDED. as needed for ACUTE PAIN Days = 5 Qty = 20 Objective VS/I O Last Documented: Result Date Time Pulse Ox 94 11/20 721 B/P 142/52 11/20 721 B/P Mean 82.2 11/20 721 O2 Delivery Room air 11/20 721 Temp 99.1 11/20 721 Pulse 76 11/20 721 Resp 16 11/20 721 PATIENT WEIGHT: Weight (lb): Weight (oz): Weight (kg): 45.455 General appearance: alert, awake, oriented Head/Eyes: atraumatic, normocephalic ENT: moist mucosal membranes Neck: full range of motion, non-tender Cardiovascular: regular rate rhythm, normal heart sounds Respiratory: aerating well, symmetric expansion GI: soft, non-tender Genitourinary: no flank pain Extremities: moves all, normal range of motion Musculoskeletal: full range of motion, normal inspection Neuro/SUPERVISOR BRAIDING: alert, oriented X 3 Skin: dry, intact, no gross abnormalities Psychiatry: normal affect, normal mood Results Findings/Data: Laboratory Tests: 11/20 0511 2055 1601 Chemistry Sodium (134 - 147 mEq/L) 144 Potassium (3.4 - 5.0 mEq/L) 4.0 Chloride (100 - 108 mEq/L) 108 Carbon Dioxide (21 - 33 mEq/l) 29 Anion Gap (0 - 20) 11 BUN (7 - 25 mg/dL) 29 H Creatinine (0.6 - 1.3 mg/dL) 1.1 Glomerular Filtr Rate (80 - 90) 54.7 L Glucose (77 - 141 mg/dL) 201 H POC Glucose (70 - 110 MG/DL) 186 H 146 H 193 H Calcium (8.0 - 10.5 mg/dL) 9.3 Hematology WBC (4.5 - 11.0 x10 3/uL) 8.8 RBC (3.54 - 5.02 x10 6/uL) 2.34 L Hgb (11.0 - 15.0 g/dL) 6.8 L Hct (33.0 - 45.0 %) 20.7 L MCV (81.0 - 99.0 fL) 88.5 MCH (27.0 - 33.0 pg) 29.1 MCHC (33.0 - 37.0 g/dL) 32.9 L RDW (11.5 - 14.5 %) 12.2 Plt Count (150 - 400 x10 3/uL) 213 MPV (7.0 - 9.0 fL) 10.9 H Neut % (Auto) (56.0 - 77.0 %) 65.1 Lymph % (Auto) (14.0 - 32.0 %) 22.6 [place] % (Auto) (4.8 - 9.0 %) 8.9 Eos % (Auto) (0.3 - 3.7 %) 2.8 Baso % (Auto) (0.0 - 2.0 %) 0.3 Neut # (Auto) (2.0 - 7.6 x10 3/uL) 5.73 Lymph # (Auto) (1.0 - 3.8 x10 3/uL) 1.99 [place] # (Auto) (0.1 - 0.8 x10 3/uL) 0.78 Eos # (Auto) (0.0 - 0.2 x10 3/uL) 0.25 H Baso # (Auto) (0.0 - 0.2 x10 3/uL) 0.03 Abs Immat Gran (auto) (0.00 - 0.03 x10 3/uL) 0.03 Immature Gran % (0.0 - 2.0 %) 0.3 Nucleated RBC % (0 - 0 %) 0.0 Nucleated RBCs # (Man) (0.0 - 0.1 x10 3/uL) 0.00 11/19 1110 Chemistry POC Glucose (70 - 110 MG/DL) 220 H Results: labs reviewed, vital signs reviewed, vital signs stable, rhythm personally rev'd, current med profile rev'd Treatments Procedures Lab: Chemistry last 24 hrs: 11/20 0511 Chemistry Sodium (134 - 147 mEq/L) 144 Potassium (3.4 - 5.0 mEq/L) 4.0 Chloride (100 - 108 mEq/L) 108 BUN (7 - 25 mg/dL) 29 H Creatinine (0.6 - 1.3 mg/dL) 1.1 Glucose (77 - 141 mg/dL) 201 H Hematology last 24 hrs: 11/20 0511 Hematology WBC (4.5 - 11.0 x10 3/uL) 8.8 Hgb (11.0 - 15.0 g/dL) 6.8 L Hct (33.0 - 45.0 %) 20.7 L Plt Count (150 - 400 x10 3/uL) 213 Neut % (Auto) (56.0 - 77.0 %) 65.1 Discharge Instructions PCP PCP: PCP: Sara Gerard MD )( Discharge to: Home/Self Care Discharge Instructions Additional Discharge Routines: PCP Follow-Up, Attending Follow-Up, Weight Monitoring )( Diet: Cardiac )( Weight monitoring: Daily )( Activity: As Tolerated, Appropriate for Age, Light Duty, No Driving, No Strenuous Activity, Walk )( Notify PCP of these S/S: Chest Pain, Increased redness, Increased swelling, Increased tenderness/pain, Moderate/large bleeding, Numbness, Pus-like discharge , Red line from wound, Shortness of breath, Temp. 101 or greater Follow-up Appointments PCP follow up: PCP: Sara Gerard MD PCP follow up timeframe: In 1-2 weeks Attending Physician: Attending Physician: Sara Gerard MD Attending physician follow up timeframe: In 1-2 weeks Quality: Discharge Advanced Care Plan 65 or Older Discussed with: patient Current Medications Current medication review: I attest that the foregoing medication list in the medical record is true, accurate, and complete to the best of my knowledge. at 0835 at 1655 RPT #:[id number] END OF REPORT [facility] 2024-11-20 07:27:00 [facility] Cardiology Progress Note REPORT#:[id number] REPORT STATUS: Signed REPORT INITIALIZATION DATE:11/20/24 TIME: 726 PATIENT: STEFF SMILEY UNIT #: [id number] ROOM/BED: [facility]-1 : 55 AGE: 68 SEX: F ATTEND: Sara Gerard MD ADM AUTHOR: Elke Le NP REPT SERVICE DT/TIME: 11/20/24726 * ALL edits or amendments must be made on the electronic/computer document * Subjective HPI: Cardiology progress note Date of service: 11/20/2024 Chief complaint/reason for consult: Elevated troponin Patient seen and examined, chart reviewed, all questions answered at this time. Current medication and vitals reviewed. HPI and interval Hx: This is a 68-year-old female with a past medical history of hypertension, hyperlipidemia, CKD, type 2 diabetes, chronic headaches, peripheral vascular disease who was found to have significant 80% left internal carotid artery stenosis (recently had L CEA on 11/15/24) who initally presented to [facility] for a headache, numbness in bilateral hands, and feeling weak. She was then transferred here to [facility] for continued medical care. At [facility], patient had a CT head, which showed no acute abnormalities. Patient had elevated troponin of 1061.3. Cardiology consulted due to elevated troponin. Follow-up troponins 529, 623, 442. Patient was seen in CVICU she is sleeping restlessly denies any chest pain shortness of breath. She reports headache and generalized weakness and right lower extremity pain. Blood pressure remains elevated with SBP in the 170s discussed with bedside nurse patient is cleared from cardiac standpoint to transfer to floor on telemetry. Will obtain echo as well as adjust blood pressure medications. Encourage patient to take oral intake supplemental nutrition has patient has a poor appetite. 11/20/2024 Patient is awake alert in bed reports weakness, you have syncope while using the restroom. Patient was noted to have low hemoglobin 7.4. She denies any chest pain shortness of breath. Headache is intermittent. She denies any nausea vomiting numbness tingling. Hemoglobin was noted to be 6.8 from 7.8 it was rechecked now 7.4. Cardiac enzymes positive due to low hemoglobin no anticoagulation at this time. Symptoms could be related to vasovagal/ symptomatic anemia. Subjective: Headache, right lower extremity pain (thigh), generalized weakness Objective: Vital Signs: Date Time Temp Pulse Resp B/P B/P Pulse O2 O2 Flow FiO2 Mean Ox Delivery Rate 11/20 0721 99.1 76 16 142/52 82.2 94 Room air 11/20 0454 97.9 78 14 131/57 81.5 96 11/196 97.9 88 15 122/63 82.4 97 11/19 2020 97.9 79 14 131/63 85.7 96 PHYSICAL EXAM GEN: Awake alert in no acute distress. HEENT: NC/AT, EOMI CARD: RRR, normal S1/S2, no added sounds LUNGS: CTA w/o added sounds, GBAE, room air Abdomen soft nontender nondistended Extremity warm dry no lower extremity edema reports pain right thigh area Laboratory data: Reviewed independently. Radiology images and report: Reviewed. EKG: Sinus rhythm Echo: EF 55 to 60% grade 2 diastolic systolic dysfunction Assessment: Hypertension NSTEMI Carotid stenosis s/p recent L CEA Headache Weakness PVD Hyperlipidemia Diabetes Mellitus Anemia Plan and recommendation: Continous telemetry monitoring Hemodynamic monitoring Blood pressure has improved Trend cardiac enzymes to peak 539, 643, 442 Monitor for signs of bleeding hemoglobin on 11/11 showed 10, hemoglobin on 11/19 show 7.8 Monitor hemoglobin a.m. labs show 6.8 with repeat 7.4 We will recommend transfusing 1 unit PRBC and keep PRBC transfusion to keep hemoglobin greater than 7 Near syncope fatigue symptoms could be related to symptomatic anemia anemia workup per primary team ECHO normal LVEF 55 to 60% grade 2 diastolic dysfunction If no concern of bleeding resume DAPT aspirin and Plavix Resume home lisinopril IV hydralazine as needed Lipid reviewed start high intensity statin; C/W atorvastatin 40 mg QHS BNP 299 TSH lower end of normal HgbA1c elevated 8.3 recommend endocrinology for further workup and management Rec dietary consult supplement due to poor intake PT OT Monitor I/O Monitor Electrolytes Keep K > 4, and Mag > 2 Recommend clinic follow-up in 1 week Rest of care per primary team Diagnosis, Assessment Plan Consultants: cardiology, neurology at 1312 at 1713 RPT #:[id number] END OF REPORT [facility] 2024-11-19 13:06:00 [facility] ([facility] Neurology Progress Note REPORT#:[id number] REPORT STATUS: Signed REPORT INITIALIZATION DATE:11/19/24 TIME: 1306 PATIENT: STEFF SMILEY UNIT #: [id number] ROOM/BED: [place] [address] : 55 AGE: 68 SEX: F ATTEND: Sara Gerard MD ADM AUTHOR: Tanisha Sorensen REPT SERVICE DT/TIME: 11/19/24 1306 * ALL edits or amendments must be made on the electronic/computer document * Tanisha Sorensen 11/19/24 1306: Subjective Chief complaint: RICHARDS, N/V HPI: Patient is feeling better and headache have resolved at this time. Patient denies any new neurologic symptoms. No reported acute events overnight. Review of Systems Free Text ROS Notes Free Text ROS Notes: A 12-point review of systems was reviewed with the patient and negative other than noted in HPI. Objective General VS: Last Documented: Result Date Time Pulse Ox 98 11/19 1231 B/P 152/67 11/19 1231 B/P Mean 96 11/19 1231 Pulse 84 11/19 1231 Resp 5 11/19 1231 Temp 97.4 11/19 0800 O2 Delivery Room air 11/18 0901 PATIENT WEIGHT: Weight (lb): Weight (oz): Weight (kg): 45.455 Medications Current Home Medications GLIMEPIRIDE 4 MG PO BID LISINOPRIL (ZESTRIL) 10 MG PO DAILY FERROUS SULFATE (FEOSOL) 325 MG PO DAILY IBUPROFEN (MOTRIN) 800 MG PO DAILY CLOPIDOGREL (PLAVIX) 75 MG PO DAILY ASPIRIN EC (ECOTRIN) 81 MG PO DAILY traMADol (ULTRAM) 50 MG PO Q6H PRN PRN ACUTE PAIN Active Meds + DC'd Last 24 Hrs Atorvastatin Calcium (LIPITOR) 40 MG 2100 PO Lisinopril (ZESTRIL) 10 MG DAILY PO Insulin Human Lispro (HUMALOG) 0 AC HS SUBQ Pregabalin (LYRICA) 25 MG BID PO Acetaminophen/Butalbital/Caffeine (FIORICET) 1 TAB Q4H PRN PRN PO Dextrose/Water (DEXTROSE 10% IN WATER) 125 ML ASDIR PRN IV (CKD) Dextrose/Water (DEXTROSE 10% IN WATER) 250 ML ASDIR PRN IV (CKD) Diphenhydramine HCl (BENADRYL) 25 MG ONCE ONE PO (DC) Glucagon (GLUCAGON) 1 MG ASDIR PRN IM Magnesium Sulfate/Dextrose (MAGNESIUM SULFATE 1GM/D5W 100ML) 100 ML ONCE ONE IV (DC) Metoclopramide HCl (REGLAN) 10 MG ONCE ONE IV (DC) Morphine Sulfate (morphine SULFATE) 2 MG Q3H PRN PRN IV Morphine Sulfate (morphine SULFATE) 2 MG ONCE ONE IV (DC) Nicardipine HCl (niCARdipine HCl) 25 MG TITRATE IV (CKD) Sodium Chloride (Sodium Chloride 50ML) 50 ML Morphine Sulfate (morphine SULFATE) 0 .STK-MED ONE IV (DC) Morphine Sulfate (morphine SULFATE) 2 MG ONCE ONE IV (DC) Ondansetron HCl (ZOFRAN) 4 MG Q4H PRN PRN IV Morphine Sulfate (morphine SULFATE) 0 .STK-MED ONE IV (DC) Ondansetron HCl (ZOFRAN) 0 .STK-MED ONE IV (DC) Lisinopril (ZESTRIL) 10 MG DAILY PO (DC) Clopidogrel Bisulfate (Plavix) 75 MG DAILY PO Aspirin (ASPIRIN) 81 MG DAILY PO Ferrous Sulfate (FERROUS SULFATE) 325 MG DAILY PO Hydralazine HCl (APRESOLINE) 10 MG Q6H PRN PRN IV Dietitian nutrition assessment The data set between the solid lines has been imported from the dietitian's assessment. BMI Calculated: 19.6 Nutrition related diagnosis: Nutrition diagnosis details: Nutrition problem: Nutrition etiology: Nutrition signs and symptoms: Nutrition prescription: Dietitian name: Assessment completed: Physical Exam Neuro comment: General: well nourished HEENT: NCAT, anicteric sclera, posterior pharynx clear, mucus membranes moist CV: regular rate, intact peripheral pulses Pulm: breathing comfortably, no wheezing, symmetric chest expansion Abd: soft, non-tender, non-distended Ext: skin clear, no rashes, no edema Neurology: Mental Status: A Ox3, good concentration; normal fund of knowledge and memory Language: intact fluency, comprehension, naming, and repetition Speech: no dysarthria CN: PERRL, 2 mm BL, EOMI, no nystagmus, full VF; no facial asymmetry, facial sensation intact; auditory acuity intact; tongue midline, palate elevates symmetrically, SCM/trapezius intact Motor: AG throughout, no drift, normal tone, full ROM Sensory: intact to light touch equally on both sides, no extinction Coordination: no dysmetria on FTN or HTS bilaterally DTR 2+ BR/biceps/triceps, Patella 3, achilles 1 no johns's R > L occipital tenderness Results Findings/Data: Laboratory Tests 11/19 11/19 11/19 11/19 1110 0656 0656 0656 Chemistry POC Glucose (70 - 110 MG/DL) 220 H Hemoglobin A1c (4.8 - 6.0 %A1C) 8.3 H B-Natriuretic Peptide (0 - 100 PG/ML) 299.0 H Triglycerides (40 - 150 mg/dL) 203 H Cholesterol (<200 mg/dL) 155 LDL Cholesterol Measurd (0 - 100 mg/dL) 99.0 HDL Cholesterol (40 - 60 MG/DL) 33.7 L Cholesterol/HDL Ratio (3.27 - 4.44 RATIO) 4.60 H TSH (0.42 - 5.47) 0.44 11/197 1611 Chemistry Sodium (134 - 147 mEq/L) 143 Potassium (3.4 - 5.0 mEq/L) 3.8 Chloride (100 - 108 mEq/L) 110 H Carbon Dioxide (21 - 33 mEq/l) 27 Anion Gap (0 - 20) 10 BUN (7 - 25 mg/dL) 20 Creatinine (0.6 - 1.3 mg/dL) 0.9 Glomerular Filtr Rate (80 - 90) 69.6 L Glucose (77 - 141 mg/dL) 168 H POC Glucose (70 - 110 MG/DL) 178 H Calcium (8.0 - 10.5 mg/dL) 7.3 L Magnesium (1.6 - 2.6 mg/dL) 2.21 Troponin I High Sens (0 - 34 ng/L) 442 *H Laboratory Tests 11/19 0656 Hematology WBC (4.5 - 11.0 x10 3/uL) 8.7 RBC (3.54 - 5.02 x10 6/uL) 2.66 L Hgb (11.0 - 15.0 g/dL) 7.8 L Hct (33.0 - 45.0 %) 24.6 L MCV (81.0 - 99.0 fL) 92.5 MCH (27.0 - 33.0 pg) 29.3 MCHC (33.0 - 37.0 g/dL) 31.7 L RDW (11.5 - 14.5 %) 12.2 Plt Count (150 - 400 x10 3/uL) 208 MPV (7.0 - 9.0 fL) 10.7 H Neut % (Auto) (56.0 - 77.0 %) 65.7 Lymph % (Auto) (14.0 - 32.0 %) 23.6 [place] % (Auto) (4.8 - 9.0 %) 8.1 Eos % (Auto) (0.3 - 3.7 %) 1.8 Baso % (Auto) (0.0 - 2.0 %) 0.3 Neut # (Auto) (2.0 - 7.6 x10 3/uL) 5.72 Lymph # (Auto) (1.0 - 3.8 x10 3/uL) 2.06 [place] # (Auto) (0.1 - 0.8 x10 3/uL) 0.71 Eos # (Auto) (0.0 - 0.2 x10 3/uL) 0.16 Baso # (Auto) (0.0 - 0.2 x10 3/uL) 0.03 Abs Immat Gran (auto) (0.00 - 0.03 x10 3/uL) 0.04 H Immature Gran % (0.0 - 2.0 %) 0.5 Nucleated RBC % (0 - 0 %) 0.0 Nucleated RBCs # (Man) (0.0 - 0.1 x10 3/uL) 0.00 Results: labs reviewed, vital signs reviewed Diagnosis, Assessment Plan Free Text A P: Patient is a 68 year old female with HTN, HLD, CKD, T2DM, PAD and 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 She presented there today with complaints of nausea, severe headaache, dizziness and BUE numbness. She arrived there with an NIHSS of 0 and an unremarkable CTH. She was found to have an NSTEMI and transferred here for further evaluation. Patient is s/p CEA on 11/15. Patient reported to family that she had a 10/10 headache associated with N/V and arrived with a SBP of 180s. CTH was performed at the OSH and unremarkable. CTH 11/18/24: No ICH, mass, mass effect, midline shift or acute ischemic changes noted on report. Scattered microangiopathic changes noted. NSTEMI Hypertensive urgency S/p CEA 11/15 -CTH: Reviewed by neurologist -Keep SBP <140mmHg -Neurochecks q4h -lyrica -Provided migraine cocktail -Asked family to obtain outpatient MRI -On DAPT/Statin -Cardiology following -RICHARDS control with PRN Tylenol/Fioricet -PT/OT/ST evaluation Dispo: Neurology will sign off, please call if any questions or concerns. Neurologist examined the patient, personally reviewed all pertinent data including imaging and formulated the plan of care together. REBEKA distinctive service time: 17 minutes. REBEKA and Physician shared service Time: 5 minutes discussing diagnosis, Exam and plan of care. Tanisha Sorensen APRN-[employer]CHOOL PATROL for Waqas Felix MD [facility]ist. Consultants: cardiology, neurology Plan discussed with: patient Waqas Felix 11/21/24 0715: Attestations Physician Attestation Reviewed findings plan: Reviewed the findings and plan as documented by Tanisha Sorensen NP at 0716 at 2233 RPT #:[id number] END OF REPORT [facility] 2024-11-19 07:57:00 [facility] ([facility]) Cardiothoracic Surgery Prog REPORT#:[id number] REPORT STATUS: Signed REPORT INITIALIZATION DATE:11/19/24 TIME: 075 PATIENT: STEFF SMILEY UNIT #: [id number] ROOM/BED: [place] [address] : 55 AGE: 68 SEX: F ATTEND: Sara Gerard MD ADM AUTHOR: Rhianna Bradford APRN-PHARMACOEPIDEMIOLOGIST REPT SERVICE DT/TIME: 11/19/24 7959 * ALL edits or amendments must be made on the electronic/computer document * Subjective Chief complaint: Headache, NSTEMI, hypertensive urgency S/p L CEA Review of Systems Constitutional: Denies: chills, fatigue, fever, generalized weakness. Skin: Denies: abrasion. Allergy/Immun: Denies: allergic reaction. Eyes: Denies: redness. ENT: Denies: nose bleeding, sinus problem, sore throat. Respiratory: Denies: MAC (dyspnea on exertion), hemoptysis, non productive cough. Cardiovascular: Denies: chest pain, MAC (dyspnea on exertion), edema. GI: Denies: abdominal pain. : Denies: dysuria. Musculoskeletal: Denies: arthritis. All systems rev neg: except as marked Objective General VS/I O Last Documented: Result Date Time Pulse Ox 96 11/19 701 B/P 153/67 11/19 701 B/P Mean 97 11/19 07 Pulse 89 11/19 07 Resp 11 11/19 701 Temp 97.8 11/19 0400 O2 Delivery Room air 11/18 09 24 hour I O ending at 0700: 11/19 0700 11/18 1900 Intake Total 225.00 Output Total 0 Balance 225.00 Intake, IV 100.00 Intake, Oral 125 Number 0 Bowel Movements Number 0 Incontinent Voids Number Voids 0 Output, Emesis Output, Stool 0 Output, Urine 0 Patient 45.455 kg Weight Weight Stated/Reported Measurement Method PATIENT WEIGHT: Weight (lb): Weight (oz): Weight (kg): 45.455 Dietitian Nutrition assessment The data set between the solid lines has been imported from the dietitian's assessment. BMI Calculated: 19.6 Nutrition related diagnosis: Nutrition diagnosis details: Nutrition problem: Nutrition etiology: Nutrition signs and symptoms: Nutrition prescription: Dietitian name: Assessment completed: Physical Exam General appearance: alert, awake, oriented Wound/incision: Location: left CEA Site condition: edges approximated HEENT: anicteric, mucosal membranes moist, pupils reactive to light, sclera clear Neck: full range of motion, non-tender Cardiovascular: BP/pulses equal bilat., normal heart sounds, regular rate rhythm Respiratory: clear to auscultation, symmetric expansion, no distress Abdomen: soft, non-tender, normal bowel sounds Genitourinary: urine Extremities: dry, moves all, normal capillary refill, normal temperature, no edema Musculoskeletal: full range of motion, painless range of motion Neuro/SUPERVISOR BRAIDING: alert, oriented X 3 Skin: dry, intact, normal temperature, normal color, normal turgor Current Medications Medications: Active Meds + DC'd Last 24 Hrs Insulin Human Lispro (HUMALOG) 0 AC HS SUBQ Pregabalin (LYRICA) 25 MG BID PO Acetaminophen/Butalbital/Caffeine (FIORICET) 1 TAB Q4H PRN PRN PO Dextrose/Water (DEXTROSE 10% IN WATER) 125 ML ASDIR PRN IV (CKD) Dextrose/Water (DEXTROSE 10% IN WATER) 250 ML ASDIR PRN IV (CKD) Diphenhydramine HCl (BENADRYL) 25 MG ONCE ONE PO (DC) Glucagon (GLUCAGON) 1 MG ASDIR PRN IM Magnesium Sulfate/Dextrose (MAGNESIUM SULFATE 1GM/D5W 100ML) 100 ML ONCE ONE IV (DC) Metoclopramide HCl (REGLAN) 10 MG ONCE ONE IV (DC) Morphine Sulfate (morphine SULFATE) 2 MG Q3H PRN PRN IV Morphine Sulfate (morphine SULFATE) 2 MG ONCE ONE IV (DC) Nicardipine HCl (niCARdipine HCl) 25 MG TITRATE IV (CKD) Sodium Chloride (Sodium Chloride 50ML) 50 ML Morphine Sulfate (morphine SULFATE) 0 .STK-MED ONE IV (DC) Morphine Sulfate (morphine SULFATE) 2 MG ONCE ONE IV (DC) Ondansetron HCl (ZOFRAN) 4 MG Q4H PRN PRN IV Morphine Sulfate (morphine SULFATE) 0 .STK-MED ONE IV (DC) Ondansetron HCl (ZOFRAN) 0 .STK-MED ONE IV (DC) Lisinopril (ZESTRIL) 10 MG DAILY PO (DC) Clopidogrel Bisulfate (Plavix) 75 MG DAILY PO Aspirin (ASPIRIN) 81 MG DAILY PO Ferrous Sulfate (FERROUS SULFATE) 325 MG DAILY PO Hydralazine HCl (APRESOLINE) 10 MG Q6H PRN PRN IV Results Findings/Data: Laboratory Tests 11/19 11/19 11/19 11/18 11/18 0656 0656 0228 2117 1611 Chemistry Sodium (134 - 147 mEq/L) 143 Potassium (3.4 - 5.0 mEq/L) 3.8 Chloride (100 - 108 mEq/L) 110 H Carbon Dioxide (21 - 33 mEq/l) 27 Anion Gap (0 - 20) 10 BUN (7 - 25 mg/dL) 20 Creatinine (0.6 - 1.3 mg/dL) 0.9 Glomerular Filtr Rate (80 - 90) 69.6 L Glucose (77 - 141 mg/dL) 168 H POC Glucose (70 - 110 MG/DL) 178 H Hemoglobin A1c (4.8 - 6.0 %A1C) 8.3 H Calcium (8.0 - 10.5 mg/dL) 7.3 L Magnesium (1.6 - 2.6 mg/dL) 2.21 Troponin I High Sens (0 - 34 ng/L) 442 *H Triglycerides (40 - 150 mg/dL) 203 H Cholesterol (<200 mg/dL) 155 LDL Cholesterol Measurd (0 - 100 mg/dL) 99.0 HDL Cholesterol (40 - 60 MG/DL) 33.7 L Cholesterol/HDL Ratio (3.27 - 4.44 4.60 H RATIO) TSH (0.42 - 5.47) 0.44 11/18 11/18 11/18 1309 1145 1109 Chemistry Troponin I High Sens (0 - 34 ng/L) 643 *H 539 *H LDL Cholesterol Measurd (0 - 100 mg/dL) 86.0 Laboratory Tests 11/19 0656 Hematology WBC (4.5 - 11.0 x10 3/uL) 8.7 RBC (3.54 - 5.02 x10 6/uL) 2.66 L Hgb (11.0 - 15.0 g/dL) 7.8 L Hct (33.0 - 45.0 %) 24.6 L MCV (81.0 - 99.0 fL) 92.5 MCH (27.0 - 33.0 pg) 29.3 MCHC (33.0 - 37.0 g/dL) 31.7 L RDW (11.5 - 14.5 %) 12.2 Plt Count (150 - 400 x10 3/uL) 208 MPV (7.0 - 9.0 fL) 10.7 H Neut % (Auto) (56.0 - 77.0 %) 65.7 Lymph % (Auto) (14.0 - 32.0 %) 23.6 [place] % (Auto) (4.8 - 9.0 %) 8.1 Eos % (Auto) (0.3 - 3.7 %) 1.8 Baso % (Auto) (0.0 - 2.0 %) 0.3 Neut # (Auto) (2.0 - 7.6 x10 3/uL) 5.72 Lymph # (Auto) (1.0 - 3.8 x10 3/uL) 2.06 [place] # (Auto) (0.1 - 0.8 x10 3/uL) 0.71 Eos # (Auto) (0.0 - 0.2 x10 3/uL) 0.16 Baso # (Auto) (0.0 - 0.2 x10 3/uL) 0.03 Abs Immat Gran (auto) (0.00 - 0.03 x10 3/uL) 0.04 H Immature Gran % (0.0 - 2.0 %) 0.5 Nucleated RBC % (0 - 0 %) 0.0 Nucleated RBCs # (Man) (0.0 - 0.1 x10 3/uL) 0.00 Results: labs reviewed, vital signs stable, jose personally rev'd, current med profile rev'd Diagnosis, Assessment Plan Free Text A P: This is a 68-year-old female with a past medical history of hypertension, hyperlipidemia, CKD, type 2 diabetes, peripheral vascular disease who was found to have significant 80% left internal carotid artery stenosis (recently had L CEA on 11/15/24) who initally presented to [facility] for a headache, numbness in bilateral hands, and feeling weak. She was then transferred here to [facility] for continued medical care. At [facility], patient had a CT head, which showed no acute abnormalities. Patient had elevated troponin of 1061.3, and high blood pressure. Patient denies any chest pain or shortness of breath. Patient's blood pressure in the ED is 183 /76, patient given IV hydralazine. Patient denies any double vision, no motor deficits, and is able to move all extremities. Assessment/Plan: 1. Hypertension 2. Carotid stenosis s/p recent L CEA 3. PVD 4. Hyperlipidemia 5. Diabetes Mellitus Admit to inpatient Consult cardiology Consult Neurology Control Blood pressure Neuro Checks Labs reviewed, replace electrolytes as needed Trend troponins Patient seen and examined by Dr. Gerard. 11/19/24 AAOx3, complaints of severe headache still, denies CP and SOB Reviewed labs, replace electrolytes as needed Trops trend, 539, 643, 442 Cardiology following, resume home lisinopril, lipitor, ASA and Plavix Continuous telemetry monitoring, normal sinus rhythm, monitoring BP closely Neurology consulted, keep SBP <140mmHg, migraine cocktail, and for patient to follow up outpatient for an MRI of brain. Continue neuro checks Q4 Tolerating diet, voiding PT/OT, encourage ambulation and all meals OOB Patient has good family support Transfer out of CVIVU to lower acuity floor, CVN1 or CVN2 Patient seen and examined by Dr. Gerard. Discussed plan of care with patient, family, nurse and interdisciplinary team. All questions answered. Code status: full code Plan discussed with: patient, collaborating MD, nurse, interdisc care team at 0906 at 0708 RPT #:[id number] END OF REPORT [facility] 2024-11-19 07:44:00 [facility] ([facility]) Cardiology Consultation REPORT#:[id number] REPORT STATUS: Signed REPORT INITIALIZATION DATE:11/19/24 TIME: 743 PATIENT: STEFF SMILEY UNIT #: [id number] ROOM/BED: [facility] [place]-1 : 55 AGE: 68 SEX: F ATTEND: Sara Gerard MD ADM AUTHOR: Elke Le NP REPT SERVICE DT/TIME: 11/19/24 0744 * ALL edits or amendments must be made on the electronic/computer document * History of Present Illness HPI HPI: Cardiology consult note Date of service: 11/19/2024 Chief complaint/reason for consult: Elevated troponin Patient seen and examined, chart reviewed, all questions answered at this time. Current medication and vitals reviewed. HPI and interval Hx: This is a 68-year-old female with a past medical history of hypertension, hyperlipidemia, CKD, type 2 diabetes, chronic headaches, peripheral vascular disease who was found to have significant 80% left internal carotid artery stenosis (recently had L CEA on 11/15/24) who initally presented to [facility] for a headache, numbness in bilateral hands, and feeling weak. She was then transferred here to [facility] for continued medical care. At [facility], patient had a CT head, which showed no acute abnormalities. Patient had elevated troponin of 1061.3. Cardiology consulted due to elevated troponin. Follow-up troponins 529, 623, 442. Patient was seen in CVICU she is sleeping restlessly denies any chest pain shortness of breath. She reports headache and generalized weakness and right lower extremity pain. Blood pressure remains elevated with SBP in the 170s discussed with bedside nurse patient is cleared from cardiac standpoint to transfer to floor on telemetry. Will obtain echo as well as adjust blood pressure medications. Encourage patient to take oral intake supplemental nutrition has patient has a poor appetite. Subjective: Headache, right lower extremity pain (thigh), generalized weakness Objective: Vital Signs: Date Time Temp Pulse Resp B/P B/P Pulse O2 O2 Flow FiO2 Mean Ox Delivery Rate 11/19 0701 89 11 153/67 97 96 11/19 0700 88 15 95 11/19 0645 88 14 160/72 103 92 11/19 0631 81 8 176/72 103 96 11/19 0630 85 11 96 11/19 0615 76 10 144/62 89 96 11/19 0601 75 11 160/67 97 96 11/19 0600 77 11 95 11/19 0545 75 12 146/65 93 95 11/19 0530 80 11 150/67 96 97 11/19 0516 76 10 158/69 99 96 11/19 0500 77 9 137/62 89 97 11/19 0445 80 12 137/63 90 97 / 0430 71 9 143/63 91 95 11/19 0416 73 12 155/67 96 96 11/19 0400 97.8 11/19 0400 76 10 153/65 94 97 11/19 0345 77 12 145/64 92 97 11/19 0330 74 9 138/64 92 97 11/19 0315 77 12 134/63 90 98 11/19 0300 72 9 134/64 92 98 11/19 0245 69 10 140/60 86 97 11/19 0230 72 11 138/61 88 98 11/19 0215 79 8 153/65 93 98 11/19 0200 92 16 154/69 99 97 11/19 0145 72 13 140/63 90 98 11/19 0130 74 10 138/63 91 98 11/19 0115 72 6 140/63 91 99 11/19 0100 72 8 138/63 91 98 11/19 0045 73 10 140/65 93 99 11/19 0036 72 9 98 11/19 0030 74 10 134/62 89 98 11/19 0015 74 7 137/63 90 98 11/19 0000 98.0 11/19 0000 85 12 137/62 89 98 11/18 2345 72 9 147/65 94 99 11/18 2331 73 9 145/61 88 98 11/18 2330 75 13 98 11/18 2315 74 11 131/61 88 98 11/18 2300 77 12 141/62 89 98 11/18 2245 74 9 133/59 85 98 11/18 2230 79 13 126/58 84 98 11/18 2215 78 7 128/60 87 98 11/18 2200 79 12 131/60 87 98 11/18 2145 77 13 126/60 86 99 11/18 2130 79 10 124/57 82 98 11/18 2115 80 8 130/61 88 97 11/18 2100 81 14 130/58 84 97 11/18 2045 85 16 126/58 84 99 11/18 2030 82 8 116/57 82 99 11/18 2015 81 10 115/56 81 98 11/18 2000 98.3 11/18 2000 82 16 111/55 79 97 11/18 1958 83 11 97 PHYSICAL EXAM GEN: Sleeping arouses easily in no acute distress. HEENT: NC/AT, EOMI CARD: RRR, normal S1/S2, no added sounds LUNGS: CTA w/o added sounds, GBAE, room air Abdomen soft nontender nondistended Extremity warm dry no lower extremity edema; reports pain right thigh area Laboratory data: Reviewed independently. Radiology images and report: Reviewed. EKG: Sinus rhythm Echo: Ordered Assessment: Hypertension NSTEMI Carotid stenosis s/p recent L CEA Headache Weakness PVD Hyperlipidemia Diabetes Mellitus Anemia Plan and recommendation: Continous telemetry monitoring Can transfer out of CVICU if okay with rest of team to floor /telemetry Hemodynamic monitoring Trend cardiac enzymes to peak 539, 643, 442 no need to repeat Monitor for signs of bleeding hemoglobin on 11/11 showed 10, hemoglobin on 11/19 show 7.8. Monitor hemoglobin a.m. labs showed hemoglobin 7.8 PRBC transfusion to keep hemoglobin greater than 7 Monitor for chest pain 12 lead ekg with any new onset chest pain/arrhythmia ECHO ordered Right lower extremity Doppler If no concern of bleeding resume DAPT aspirin and Plavix Resume home lisinopril IV hydralazine as needed Lipid reviewed start high intensity statin; Start Atorvastatin 40 mg QHS BNP ordered TSH lower end of normal HgbA1c elevated 8.3 recommend endocrinology for further workup and management Rec dietary consult supplement due to poor intake Monitor I/O Monitor Electrolytes Keep K > 4, and Mag > 2 Rest of care per primary team History - Adult longitudinal Past medical history: Reports: Diabetes mellitus, Hypertension, Dyslipidemia. Additional medical history: PVD Additional surgical history: CEA (L) 11/15/24 Alcohol use: Denies EtOH use Drug use: Denies recreational drugs Smoking status for patients 13 years old or older: Never Smoker Allergies: Coded Allergies: No Known Allergies (11/11/24) Objective Physical Exam General appearance: alert, awake, oriented at 1019 at 0912 RPT #:[id number] END OF REPORT [facility] 2024-11-18 18:36:00 [facility] ([facility]) Critical Care Consult Note REPORT#:[id number] REPORT STATUS: Signed REPORT INITIALIZATION DATE:11/18/24 TIME: 1835 PATIENT: STEFF SMILEY UNIT #: [id number] ROOM/BED: 2205-1 : 55 AGE: 68 SEX: F ATTEND: Sara Gerard MD ADM AUTHOR: Truman Mondragon DO REPT SERVICE DT/TIME: 11/18/241835 * ALL edits or amendments must be made on the electronic/computer document * History of Present Illness HPI Requesting clinician: Dr. Gerard Reason for consult: htn emergency, nstemi Chief complaint: Headache, NSTEMI, HTN HPI: Patient is a 68-year-old female with a past medical history of hypertension, hyperlipidemia, CKD, type 2 diabetes and peripheral vascular disease. She underwent a left-sided CEA 3 days ago. She then presented to the emergency room this morning with a headache, numbness of bilateral hands and feeling weak. Upon evaluation in the emergency department at outside hospital she had a negative CT of her head however she was found to be hypertensive in the 170s. She was also found to have a troponin in the thousands. She is having no chest pain. She did receive 1 dose of IV hydralazine. Upon evaluation in the CVICU she is continuing to have nausea and vomiting. No focal neurologic deficits. Still complaining of head pain. Blood pressures better controlled systolic in the 140s. Plan to have consult for neurology and close neurovascular monitoring. History - Adult longitudinal Past medical history: Reports: Diabetes mellitus, Hypertension, Dyslipidemia. Additional medical history: PVD Additional surgical history: none Alcohol use: Denies EtOH use Drug use: Denies recreational drugs Smoking status for patients 13 years old or older: Never Smoker Allergies: Coded Allergies: No Known Allergies (11/11/24) Objective Physical Exam VS/I O: Last Documented: Result Date Time Pulse Ox 97 11/18 1815 B/P 142/65 11/18 1815 B/P Mean 94 11/18 181 Pulse 90 11/18 1815 Resp 7 11/18 181 Temp 98.8 11/18 1600 O2 Delivery Room air 11/18 0901 Patient Weight and BMI Weight (kg): 45.455 BMI: 19.6 Free Text Obj Notes Free Text Obj Notes: GEN: Appears uncomfortable with nausea and vomiting interactive and conversational HEENT: Atraumatic, normocephalic, moist mucous membranes NECK: Supple, good range of motion, no tenderness, no JVD LUNGS: Symmetrical air entry, no acute respiratory distress, no accessory muscle use CV: S1, S2 regular rate and rhythm, warm and well perfused GI: Abdomen is soft, not tender or distended EXT/Musc: No edema or cyanosis. Pedal pulses present. Compartments soft Skin: Surgical site clean, dry and intact right neck. Warm to touch NEURO: Awake, alert and oriented x3. No facial droop or focal deficit Diagnosis, Assessment Plan Free text DxA P: Patient is a 60-year-old female with a history of carotid stenosis status post left CEA 11/15/2024 presenting with NSTEMI, hypertension, headache, nausea and vomiting Hypertensive emergency Status post left CEA NSTEMI Headache Nausea -Stat consult placed to neurology, will reconsider repeat imaging -Allow for permissive hypertension until further evaluation from neurology if concern for acute ischemic stroke -If cleared by neurology and no concern for stroke can target systolic blood pressure less than 140 -Continue Zofran and multimodal pain control -Continue dual antiplatelet therapy -Hold lisinopril, small elevation in creatinine and drop in GFR, strict I's and O's, avoid nephrotoxic agents -Received dose of Lovenox, stat echocardiogram, cardiology following, troponin is trending down at 1840 RPT #:[id number] END OF REPORT [facility] 2024-11-18 17:38:00 [facility] ([facility]) Neurology Consultation Note REPORT#:[id number] REPORT STATUS: Signed REPORT INITIALIZATION DATE:11/18/24 TIME: 1737 PATIENT: STEFF SMILEY UNIT #: [id number] ROOM/BED: [place] [address] : 55 AGE: 68 SEX: F ATTEND: Sara Gerard MD ADM AUTHOR: Waqas Felix MD REPT SERVICE DT/TIME: 11/18/241737 * ALL edits or amendments must be made on the electronic/computer document * History of Present Illness HPI Hand dominance: right Requesting clinician: Bianca Bradford Reason for consult: RICHARDS, weakness; s/p CEA on 11/15 Chief complaint: RICHARDS, N/V PCP: PCP: Sara Gerard MD HPI: Patient is a 68 year old female with HTN, HLD, CKD, T2DM, PAD and 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 She presented there today with complaints of nausea, severe headaache, dizziness and BUE numbness. She arrived there with an NIHSS of 0 and an unremarkable CTH. She was found to have an NSTEMI and transferred here for further evaluation. Patient is s/p CEA on 11/15. Patient reported to family that she had a 10/10 headache associated with N/V and arrived with a SBP of 180s. CTH was performed at the OSH and unremarkable. Still complains of excruciating headache. Patient has had excruciating posterior occipital headaches that extend band or vice like around her head for several months now. She was evaluated by her PCP and has had an MRI according to her son done in [place]. Patient reports that the headache is still 10/10 and does not notice improvement with tylenol which makes her sleepy as does gabapentin. History - Adult longitudinal Past medical history: Reports: Diabetes mellitus, Hypertension, Dyslipidemia. Additional medical history: PVD Additional surgical history: CEA (L) 11/15/24 Alcohol use: Denies EtOH use Drug use: Denies recreational drugs Smoking status for patients 13 years old or older: Never Smoker Allergies: Coded Allergies: No Known Allergies (11/11/24) Review of Systems GI: Reports: nausea. Neuro: Reports: headache, lightheaded. All systems rev neg: except as marked Objective General VS: Last Documented: Result Date Time Pulse Ox 97 11/18 1815 B/P 142/65 11/18 1815 B/P Mean 94 11/18 1815 Pulse 90 11/18 1815 Resp 7 11/18 1815 Temp 37.1 11/18 1600 O2 Delivery Room air 11/18 0901 PATIENT WEIGHT: Weight (lb): Weight (oz): Weight (kg): 45.455 Medications Current Home Medications GLIMEPIRIDE 4 MG PO BID LISINOPRIL (ZESTRIL) 10 MG PO DAILY FERROUS SULFATE (FEOSOL) 325 MG PO DAILY IBUPROFEN (MOTRIN) 800 MG PO DAILY CLOPIDOGREL (PLAVIX) 75 MG PO DAILY ASPIRIN EC (ECOTRIN) 81 MG PO DAILY traMADol (ULTRAM) 50 MG PO Q6H PRN PRN ACUTE PAIN Active Meds + DC'd Last 24 Hrs Morphine Sulfate (morphine SULFATE) 2 MG Q3H PRN PRN IV Morphine Sulfate (morphine SULFATE) 2 MG ONCE ONE IV (DC) Nicardipine HCl (niCARdipine HCl) 25 MG TITRATE IV (CKD) Sodium Chloride (Sodium Chloride 50ML) 50 ML Morphine Sulfate (morphine SULFATE) 0 .STK-MED ONE IV (DC) Morphine Sulfate (morphine SULFATE) 2 MG ONCE ONE IV (DC) Ondansetron HCl (ZOFRAN) 4 MG Q4H PRN PRN IV Morphine Sulfate (morphine SULFATE) 0 .STK-MED ONE IV (DC) Ondansetron HCl (ZOFRAN) 0 .STK-MED ONE IV (DC) Lisinopril (ZESTRIL) 10 MG DAILY PO Clopidogrel Bisulfate (Plavix) 75 MG DAILY PO Aspirin (ASPIRIN) 81 MG DAILY PO Ferrous Sulfate (FERROUS SULFATE) 325 MG DAILY PO Hydralazine HCl (APRESOLINE) 10 MG Q6H PRN PRN IV Dietitian nutrition assessment The data set between the solid lines has been imported from the dietitian's assessment. BMI Calculated: 19.6 Nutrition related diagnosis: Nutrition diagnosis details: Nutrition problem: Nutrition etiology: Nutrition signs and symptoms: Nutrition prescription: Dietitian name: Assessment completed: Free Text Obj Notes Free Text Obj Notes: General: well nourished HEENT: NCAT, anicteric sclera, posterior pharynx clear, mucus membranes moist CV: regular rate, intact peripheral pulses Pulm: breathing comfortably, no wheezing, symmetric chest expansion Abd: soft, non-tender, non-distended Ext: skin clear, no rashes, no edema Neurology: Mental Status: A Ox3, good concentration; normal fund of knowledge and memory Language: intact fluency, comprehension, naming, and repetition Speech: no dysarthria CN: PERRL, 2 mm BL, EOMI, no nystagmus, full VF; no facial asymmetry, facial sensation intact; auditory acuity intact; tongue midline, palate elevates symmetrically, SCM/trapezius intact Motor: AG throughout, no drift, normal tone, full ROM Sensory: intact to light touch equally on both sides, no extinction Coordination: no dysmetria on FTN or HTS bilaterally DTR 2+ BR/biceps/triceps, Patella 3, achilles 1 no johns's R > L occipital tenderness Diagnosis, Assessment Plan Free Text DxA P Notes Free text DxA P notes: 68F with acute on chronic headaches and recent carotid revascularization. No new neuo deficits by exam or history. CTH at OSH unremarkable. CTH 11/18/24: No ICH, mass, mass effect, midline shift or acute ischemic changes noted on report. Scattered microangiopathic changes noted. NSTEMI Hypertensive urgency -SBP <140mmHg -neurochecks q2 x3 then q4h -lyrica -migraine cocktail -Asked family to obtain outpatient MRI at 0715 RPT #:[id number] END OF REPORT [facility] 2024-11-18 11:48:00 [facility] ([facility]) History Physical - Adult REPORT#:[id number] REPORT STATUS: Signed REPORT INITIALIZATION DATE:11/18/24 TIME: 114 PATIENT: STEFF SMILEY UNIT #: [id number] ROOM/BED: [facility] [place]3-1 : 55 AGE: 68 SEX: F ATTEND: Sara Gerard MD ADM AUTHOR: Rhianna Bradford APRN-PHARMACOEPIDEMIOLOGIST REPT SERVICE DT/TIME: 11/18/24 1148 * ALL edits or amendments must be made on the electronic/computer document * History of Present Illness HPI HPI: This is a 68-year-old female with a past medical history of hypertension, hyperlipidemia, CKD, type 2 diabetes, peripheral vascular disease who was found to have significant 80% left internal carotid artery stenosis (recently had L CEA on 11/15/24) who initally presented to [facility] for a headache, numbness in bilateral hands, and feeling weak. She was then transferred here to [facility] for continued medical care. At [facility], patient had a CT head, which showed no acute abnormalities. Patient had elevated troponin of 1061.3, and high blood pressure. Patient denies any chest pain or shortness of breath. Patient's blood pressure in the ED is 183 /76, patient given IV hydralazine. Patient denies any double vision, no motor deficits, and is able to move all extremities. History Past medical history: Reports: Diabetes mellitus, Hypertension, Dyslipidemia. Additional medical history: PVD Additional surgical history: none Alcohol use: Denies EtOH use Drug use: Denies recreational drugs Smoking status for patients 13 years old or older: Never Smoker Medication/Allergy-Vaccine Hx Allergies: Coded Allergies: No Known Allergies (11/11/24) Review of Systems Constitutional: Denies: chills, fatigue, fever. Skin: Denies: abrasion, bruising. Allergy/Immun: Denies: allergic reaction, anaphylaxis, hives. Eyes: Denies: redness, discharge. ENT: Denies: nose bleeding, sinus problem, sore throat. Respiratory: Denies: MAC (dyspnea on exertion), hemoptysis, non productive cough. Cardiovascular: Denies: chest pain, MAC (dyspnea on exertion), edema. GI: Denies: abdominal pain, anorexia. : Denies: dysuria, flank pain. Musculoskeletal: Extremity pain: Reports: left upper, right upper. Endocrine: Denies: cold intolerance, heat intolerance. Neuro: Reports: headache, numbness, weakness. Psych: Denies: agitation. All systems rev neg: except as marked Physical Exam VS/I O Vital Signs: Date Time Temp Pulse Resp B/P B/P Pulse O2 O2 Flow FiO2 Mean Ox Delivery Rate 11/18 1130 76 16 167/75 108 100 11/18 0901 98.6 83 19 157/63 94 100 Room air PATIENT WEIGHT: Weight (lb): Weight (oz): Weight (kg): 45.455 General appearance: alert, awake, oriented Head/Eyes: atraumatic, clear cornea, EOMI, normocephalic, normal conjunctiva/ sclera, normal fundi ENT: moist mucosal membranes, normal dentition, normal sinus Neck: full range of motion, non-tender Cardiovascular: normal capillary refill, regular rate rhythm, normal heart sounds Respiratory: no distress, aerating well, symmetric expansion Abdomen/GI: active bowel sounds, soft, non-tender Genitourinary: urine Extremities: moves all, no edema-all extremities, normal capillary refill, normal range of motion, normal sensory, normal motor function Musculoskeletal: full range of motion, normal inspection Neuro/SUPERVISOR BRAIDING: alert, oriented X 3 Skin: dry, intact, no gross abnormalities, normal color, normal turgor Results Findings/Data: Laboratory Tests: 11/18 11/18 1145 1109 Chemistry Troponin I High Sens (0 - 34 ng/L) 539 *H LDL Cholesterol Measurd (0 - 100 mg/dL) 86.0 Results: labs reviewed, vital signs reviewed, vital signs stable, rhythm personally rev'd, current med profile rev'd Diagnosis, Assessment Plan Orders: Procedure Date/time Status PHYSICIAN CONSULT 11/18 1147 Active PHYSICIAN CONSULT 11/18 1143 Active Code Status/Resusc. Discussion Resuscitation discussion: Discussed with: patient Code status: full code Free Text DxA P Notes Free Text DxA P Notes: This is a 68-year-old female with a past medical history of hypertension, hyperlipidemia, CKD, type 2 diabetes, peripheral vascular disease who was found to have significant 80% left internal carotid artery stenosis (recently had L CEA on 11/15/24) who initally presented to [facility] for a headache, numbness in bilateral hands, and feeling weak. She was then transferred here to [facility] for continued medical care. At [facility], patient had a CT head, which showed no acute abnormalities. Patient had elevated troponin of 1061.3, and high blood pressure. Patient denies any chest pain or shortness of breath. Patient's blood pressure in the ED is 183 /76, patient given IV hydralazine. Patient denies any double vision, no motor deficits, and is able to move all extremities. Assessment/Plan: 1. Hypertension 2. Carotid stenosis s/p recent L CEA 3. PVD 4. Hyperlipidemia 5. Diabetes Mellitus Admit to inpatient Consult cardiology Consult Neurology Control Blood pressure Neuro Checks Labs reviewed, replace electrolytes as needed Trend troponins Patient seen and examined by Dr. Gerard. at 1236 at 0901 RPT #:[id number] END OF REPORT [facility] 2024-11-18 09:30:00 [facility] ([facility]) EMERGENCY PROVIDER REPORT REPORT#:[id number] REPORT STATUS: Signed DATE:11/18/24 TIME: 929 PATIENT: STEFF SMILEY UNIT #: [id number] ROOM/BED: [place] [address] : 55 AGE: 68 SEX:F PCP PHYS: Sara Gerard MD SERVICE AUTHOR: Lalita Smith MD REP SRV REP SRV TM: 0930 * ALL edits or amendments must be made on the electronic/computer document * HPI-Headache General Confirmed Patient Yes Patient Type New patient Initial Greet Date/Time 11/18/24 0910 Presentation Chief Complaint Headache Sudden in Onset? No Pain/Sev: Onset Moderate Free Text HPI Notes Free Text HPI Notes Patient is a 68-year-old female with past medical history of hypertension, hyperlipidemia, diabetes mellitus, CKD, and PVD who was transferred from [facility] for headache and generalized weakness in the context of recent left-sided carotid endarterectomy. Prior to transfer, patient was found to have elevated troponin and BNP; she received Lovenox at 0611. Patient states she has had this headache since her surgery, but it is now worse. Denies chest pain. Risk-Headache Risk Stratification )( Subarachnoid Hemorrhage Risk factors reviewed, Hypertension )( IC Mass Lesion Risk factors reviewed Review of Systems ROS Statements All systems rev neg except as marked. Focused Review of Systems Constitutional Denies: Chills, Fever. Neurologic Reports: Generalized weakness, Headache. Denies: Syncope. Additional Review of Systems Cardiovascular Denies: Chest pain. Past Medical History - Adult Stated Complaint RICHARDS/WEAKNESS/NUMBESS/POSTOP CAROTID ENDARTERECTOMY Allergies Coded Allergies: No Known Allergies (11/11/24) Home Medications Active Scripts CLOPIDOGREL (PLAVIX) 75 MG PO DAILY 30 Days #30 TAB Prov: 11/16/24 ASPIRIN EC (ECOTRIN) 81 MG PO DAILY 30 Days #30 TAB Prov: 11/16/24 traMADol (ULTRAM) 50 MG PO Q6H PRN PRN ACUTE PAIN 5 Days #20 TABS Prov: 11/16/24 Reported Medications GLIMEPIRIDE 4 MG PO BID LISINOPRIL (ZESTRIL) 10 MG PO DAILY FERROUS SULFATE (FEOSOL) 325 MG PO DAILY IBUPROFEN (MOTRIN) 800 MG PO DAILY Discontinued Reported Medications AMOXICILLIN (AMOXIL) 500 MG PO Q8H Past Medical History: Reports: Diabetes mellitus, Hypertension, Dyslipidemia. Additional Medical History PVD Additional Surgical History none Alcohol Use Denies EtOH use Drug Use Denies recreational drugs Smoking status for patients 13 years old or older: Never Smoker Physical Exam Vital Signs Vital Signs First Documented: Result Date Time Pulse Ox 100 11/18 901 B/P 157/63 11/18 901 B/P Mean 94 11/18 901 O2 Delivery Room air 11/18 901 Temp 98.6 11/18 901 Pulse 83 11/18 901 Resp 19 11/18 901 Last Documented: Result Date Time Pulse Ox 100 11/18 901 B/P 157/63 11/18 901 B/P Mean 94 11/18 901 O2 Delivery Room air 11/18 901 Temp 98.6 11/18 901 Pulse 83 11/18 901 Resp 19 11/18 901 Review of Vital Signs Reviewed, Vital signs normal Focused PE General/Const General/Const Awake, Alert, Cooperative MS Head Head Atraumatic, Normocephalic Eyes Eyes EOMI, Conjunctiva NL Ears/Nose/Throat Ears/Nose/Throat Airway patent, Mucous membranes moist MS Neck Neck Supple, No meningismus, Full range of motion Resp/Chest Respiratory/Chest Breath sounds = bilat, No respiratory distress Cardiovascular Cardiovascular Heart rate NL, Regular rhythm Abdomen/GI Abdomen/GI Soft, No distention Skin Text/Dict Notes Bandage to left neck without active bleeding or discharge Neurologic Neurologic Oriented X3, Speech NL, No motor deficits Interpretation Diagnostics Lab Results Interpretation Lab Imaging Statement Laboratory radiographic studies reviewed and considered in the medical decision-making. ECG #1 Interpretation ECG Documented in MUSE Yes Date 11/18/24 Time 0915 Interpreted by and reviewed by me, Independently interpreted, ED physician NL ECG Interpretation Normal rate, Normal sinus rhythm, No acute ischemic changes, No STEMI Rate 85 Re-Evaluation MDM Free Text MDM Notes Additional Text Patient is a 68-year-old female with past medical history of hypertension, hyperlipidemia, diabetes mellitus, CKD, and PVD who was transferred from [facility] for headache and generalized weakness in the context of recent left-sided carotid endarterectomy. Prior to transfer, patient was found to have elevated troponin and BNP; she received Lovenox at 0611 for nSTEMI. Discussed case with patient's surgeon Dr. Gerard who requested admission to his service. Discussed lab and imaging results and surgery recommendations with patient who verbalizes understanding and agrees with plan for admission. Consultation Consultation 1 Referral/Consult Name Sara Gerard MD Automatic Furnace Operator Called Surgeon Automatic Furnace Operator Discussed with information resource consultant Requested Call Time 09 Requested Call Date 11/18/24 Call Returned Call returned Call Returned Time 09 Call Returned Date 11/18/24 Consultation 2 Referral/Consult Name ; Truman Mondragon DO Automatic Furnace Operator Called Rake Operator Automatic Furnace Operator Discussed with information resource consultant Requested Call Time 0937 Requested Call Date 11/18/24 Call Returned Call returned Call Returned Time 09 Call Returned Date 11/18/24 Patient Discharge Departure Vital Signs/Condition Vital Signs First Documented: Result Date Time Pulse Ox 100 11/18 901 B/P 157/63 11/18 0901 B/P Mean 94 11/18 901 O2 Delivery Room air 11/18 901 Temp 98.6 11/18 901 Pulse 83 11/18 09 Resp 19 11/18 901 Last Documented: Result Date Time Pulse Ox 100 11/18 0901 B/P 157/63 11/18 0901 B/P Mean 94 11/18 901 O2 Delivery Room air 11/18 901 Temp 98.6 11/18 901 Pulse 83 11/18 09 Resp 19 11/18 901 All vital signs available at the time of this entry have been reviewed. Condition Stable Clinical Impression Clinical Impression Primary Impression: NSTEMI (non-ST elevated myocardial infarction) Secondary Impressions: Headache Disposition Decision Hospitalize Hosp Physician Name Sara Gerard MD [facility] Physician Surgeon Request Time 933 Request Date 11/18/24 )( Accepts Hospitalization Yes )( Reason for Hospitalization POSTOPERATIVE NSTEMI )( Accepted Time 933 )( Accepted Date 11/18/24 Call Information will see patient Discharge/Care Plan Counseled Regarding Diagnosis, Lab results, Imaging studies, Need for admission Admit Note I have spoken with the patient and/or caregivers. I have explained the patient's condition, diagnoses and treatment plan based on the information available to me at this time. I have answered the patient's and/or caregiver's questions and addressed any concerns. The patient and/or caregivers have as good an understanding of the patient's diagnosis, condition and treatment plan as can be expected at this point. The patient has been stabilized within the capability of the emergency department. The patient will be transported for further care and management or will be moved to an observation or inpatient service. I have communicated with the staff or medical practitioner taking over this patient's care. at 2322 RPT #:[id number] END OF REPORT [facility] 2024-11-16 14:46:00 [facility] ([facility]) Discharge Summary REPORT#:[id number] REPORT STATUS: Signed REPORT INITIALIZATION DATE:11/16/24 TIME: 1445 PATIENT: STEFF SMILEY UNIT #: [id number] ROOM/BED: [place] [address] : 55 AGE: 68 SEX: F ATTEND: Sara Gerard MD ADM AUTHOR: Rhianna Bradford REPT SERVICE DT/TIME: 11/16/24 1446 * ALL edits or amendments must be made on the electronic/computer document * PCP PCP PCP: PCP: Sara Gerard MD Discharge to: home General Information Date of admission: Observation Start Date: Date of admission: 11/15/24 Discharge date: 11/16/24 Admission diagnosis: left carotid stenosis Discharge diagnosis: s/p Left Carotid Endarterectomy Hospital course: This is a 68-year-old female with a past medical history of hypertension, hyperlipidemia, CKD, type 2 diabetes, peripheral vascular disease who was found to have significant 80% left internal carotid artery stenosis and severe peripheral vascular disease. The patient initially reports she is complaining of headache somewhat for further workup with her primary care physician. Carotid Doppler was completed showing evidence of left carotid stenosis. Patient had an angiogram completed on 10/13/2024 also showing significant left internal carotid artery stenosis. Patient denies any dizziness or history of stroke. Patient is being admitted today for left carotid endarterectomy. Assessment/plan: 1. Left carotid artery stenosis 2. Hypertension 3. Hyperlipidemia 4. Peripheral vascular disease 5. Type 2 diabetes Patient seen and evaluated by Dr. Gearrd. Angiogram and Dopplers reviewed and patient will benefit from surgical intervention to her carotid artery. Dr. Gerard has explained the need for the operation. He discussed with the patient the operation, riskd involved, including stroke, benefits, alternatives, and complications. Patient acknowledges understanding and is agreeable to proceed. All patient's questions were answered and consent is obtained. Patient is being admitted today for left carotid endarterectomy. Admit to CCU postoperatively Monitor neurostatus Strict I's and O's Critical care consulted 11/15/24 Left carotid endarterectomy 11/16/24 Patient is awake, alert, and oriented Denies chest pain or shortness of breath Status post left carotid endarterectomy, POLINA drain in place, DC'd today Reviewed labs, replace electrolytes as needed Comfortably on room air Normal sinus rhythm, monitoring blood pressure closely Tolerating diet, voiding Patient has no signs of swelling, redness, drainage, symptoms of stroke, or hoarseness PT/OT, out of bed in chair, walked the unit multiple times without trouble Patient given postop appointment Dr. Lawrence has seen and examined the patient. Discussed plan of care with patient, nurse, family and interdisciplinary team members. All questions answered. Med Rec PCP PCP: PCP: Sara Gerard MD Med Rec Discharge meds: Continue taking these medications: GLIMEPIRIDE (GLIMEPIRIDE) 4 MG TAB 4 MILLIGRAM ORAL TWICE DAILY. LISINOPRIL (ZESTRIL) 10 MG TAB 10 MILLIGRAM ORAL DAILY. FERROUS SULFATE (FEOSOL) 325 MG (65 MG IRON) TAB 325 MILLIGRAM ORAL DAILY. Comments: TAKE 3X/WEEK. AMOXICILLIN (AMOXIL) 500 MG CAP 500 MILLIGRAM ORAL EVERY 8 HOURS. IBUPROFEN (MOTRIN) 800 MG TAB 800 MILLIGRAM ORAL DAILY. Start taking the following new medications: CLOPIDOGREL (PLAVIX) 75 MG TAB 75 MILLIGRAM ORAL DAILY. Days = 30 Qty = 30 No Refills ASPIRIN EC (ECOTRIN) 81 MG TAB.EC 81 MILLIGRAM ORAL DAILY. Days = 30 Qty = 30 No Refills traMADol (ULTRAM) 50 MG TAB 50 MILLIGRAM ORAL EVERY 6 HOURS NEEDED. as needed for ACUTE PAIN Days = 5 Qty = 20 No Refills Objective VS/I O Last Documented: Result Date Time Pulse Ox 99 11/16 1400 B/P 131/59 11/16 1400 B/P Mean 85 11/16 1400 Pulse 87 11/16 1400 Resp 18 11/16 1400 Temp 99.1 11/16 1200 O2 Delivery Room air 11/15 1945 O2 Flow Rate 6 11/15 1830 24 hour I O ending at 0700: 11/16 0700 11/15 1900 Intake Total 1150.00 Output Total 490 Balance 660.00 Intake, IV 1000.00 Intake, Oral 150 Output, 90 Drainage Output, 100 Emesis Output, Urine 300 Patient 44.3 kg Weight Weight Bed scale Measurement Method PATIENT WEIGHT: Weight (lb): 97 Weight (oz): 10.64 Weight (kg): 43.998 General appearance: alert, awake, oriented Head/Eyes: atraumatic, clear cornea, EOMI, normocephalic, normal conjunctiva/ sclera ENT: normal dentition, moist mucosal membranes Neck: full range of motion, non-tender Cardiovascular: normal capillary refill, regular rate rhythm, normal heart sounds Respiratory: clear to auscultation, no distress, aerating well, symmetric expansion GI: soft, non-tender, no guarding, no distention, normal bowel sounds Genitourinary: urine Extremities: moves all, no edema-all extremities, normal capillary refill, normal range of motion, normal sensory Musculoskeletal: full range of motion, normal inspection Neuro/SUPERVISOR BRAIDING: alert, oriented X 3 Skin: dry, intact, no gross abnormalities, normal color, normal turgor Wound/incision: Location: left side of neck Site Condition: dressing clean dry, dressing intact, edges approximated Results Findings/Data: Laboratory Tests: 11/16 11/16 11/16 11/16 1135 0926 0454 0152 Chemistry Sodium (134 - 147 mEq/L) 142 Potassium (3.4 - 5.0 mEq/L) 4.5 Chloride (100 - 108 mEq/L) 108 Carbon Dioxide (21 - 33 mEq/l) 24 Anion Gap (0 - 20) 14 BUN (7 - 25 mg/dL) 30 H Creatinine (0.6 - 1.3 mg/dL) 1.3 Glomerular Filtr Rate (80 - 90) 44.8 L Glucose (77 - 141 mg/dL) 258 H POC Glucose (70 - 110 MG/DL) 132 H 215 H Calcium (8.0 - 10.5 mg/dL) 8.0 Hematology WBC (4.5 - 11.0 x10 3/uL) 12.2 H RBC (3.54 - 5.02 x10 6/uL) 2.68 L Hgb (11.0 - 15.0 g/dL) 7.3 L 7.8 L Hct (33.0 - 45.0 %) 22.4 L 24.3 L MCV (81.0 - 99.0 fL) 90.7 MCH (27.0 - 33.0 pg) 29.1 MCHC (33.0 - 37.0 g/dL) 32.1 L RDW (11.5 - 14.5 %) 12.6 Plt Count (150 - 400 x10 3/uL) 213 MPV (7.0 - 9.0 fL) 10.4 H Neut % (Auto) (56.0 - 77.0 %) 88.1 H Lymph % (Auto) (14.0 - 32.0 %) 7.6 L [place] % (Auto) (4.8 - 9.0 %) 3.9 L Eos % (Auto) (0.3 - 3.7 %) 0.0 L Baso % (Auto) (0.0 - 2.0 %) 0.1 Neut # (Auto) (2.0 - 7.6 x10 3/uL) 10.77 H Lymph # (Auto) (1.0 - 3.8 x10 3/uL) 0.93 L [place] # (Auto) (0.1 - 0.8 x10 3/uL) 0.48 Eos # (Auto) (0.0 - 0.2 x10 3/uL) 0.00 Baso # (Auto) (0.0 - 0.2 x10 3/uL) 0.01 Abs Immat Gran (auto) (0.00 - 0.03 x10 3/uL) 0.04 H Immature Gran % (0.0 - 2.0 %) 0.3 Nucleated RBC % (0 - 0 %) 0.0 Nucleated RBCs # (Man) (0.0 - 0.1 x10 3/uL) 0.00 11/15 1757 1752 1655 Blood Gas Puncture Site Art Line O2 Saturation (90 - 100 %) 95.9 ABG pH (7.35 - 7.45) 7.347 L ABG pCO2 (35.0 - 45 mmHg) 45.5 H ABG pO2 (80 - 100.0 mmHg) 85.9 ABG PO2/FiO2 Ratio (mm/Hg) 409.04 ABG HCO3 (22.0 - 26.0 MMOL/L) 25.0 ABG Total CO2 (22 - 29) 26.4 ABG Base Excess (0 - +/ MMOL/L) -0.8 L ABG Hematocrit (33 - 45 %) 25 L ABG Hemoglobin (11.0 - 15.0 G/DL) 8.5 L Sodium (134 - 147 mmol/L) 142 Potassium (3.4 - 5.0 mmol/L) 4.2 Chloride (100 - 108 mmol/L) 108 Ionized Calcium (1.12 - 1.32 MMOL/L) 1.24 Lactic Acid (0.9 - 1.7 mmol/l) 1.0 Temperature (F) 97.9 O2 Delivery Device Room Air FiO2 (%) 21 Chemistry Sodium (134 - 147 mEq/L) 141 Potassium (3.4 - 5.0 mEq/L) 4.4 Chloride (100 - 108 mEq/L) 107 Carbon Dioxide (21 - 33 mEq/l) 26 Anion Gap (0 - 20) 12 BUN (7 - 25 mg/dL) 22 Creatinine (0.6 - 1.3 mg/dL) 1.1 POC Creatinine (0.6 - 1.3 mg/dL) 1.1 Glomerular Filtr Rate (80 - 90) 54.7 L Glucose (77 - 141 mg/dL) 238 H POC Glucose (70 - 110 MG/DL) 222 H POC Glucose (mg/dL) (70 - 110 MG/DL) 292 H Calcium (8.0 - 10.5 mg/dL) 8.1 Coagulation Activated Coag Time (74 - 137 SEC) 279 H Hematology Hgb (11.0 - 15.0 g/dL) 8.3 L Hct (33.0 - 45.0 %) 24.6 L Results: labs reviewed, vital signs reviewed, vital signs stable, rhythm personally rev'd, current med profile rev'd Treatments Procedures Lab: Chemistry last 24 hrs: 11/16 11/15 0454 1757 Chemistry Sodium (134 - 147 mEq/L) 142 141 Potassium (3.4 - 5.0 mEq/L) 4.5 4.4 Chloride (100 - 108 mEq/L) 108 107 BUN (7 - 25 mg/dL) 30 H 22 Creatinine (0.6 - 1.3 mg/dL) 1.3 1.1 Glucose (77 - 141 mg/dL) 258 H 238 H Hematology last 24 hrs: 11/16 11/16 11/15 0926 0454 1757 Hematology WBC (4.5 - 11.0 x10 3/uL) 12.2 H Hgb (11.0 - 15.0 g/dL) 7.3 L 7.8 L 8.3 L Hct (33.0 - 45.0 %) 22.4 L 24.3 L 24.6 L Plt Count (150 - 400 x10 3/uL) 213 Neut % (Auto) (56.0 - 77.0 %) 88.1 H Discharge Instructions PCP PCP: PCP: Sara Gerard MD )( Discharge to: Home/Self Care Discharge Instructions Additional Discharge Routines: PCP Follow-Up, Attending Follow-Up )( Diet: Cardiac )( Activity: As Tolerated, Appropriate for Age, Do not Submerge Incision, Light Duty, No Driving, No Lifting >10lbs, Shower Only, Walk Follow-up Appointments PCP follow up: PCP: Sara Gerard MD PCP follow up timeframe: In 1-2 weeks Attending Physician: Attending Physician: Sara Gerard MD Attending physician follow up timeframe: In 1-2 weeks at 1454 at 1840 RPT #:[id number] END OF REPORT [facility] 2024-11-16 10:43:00 [facility] ([facility]) Critical Care Progress Note REPORT#:[id number] REPORT STATUS: Signed REPORT INITIALIZATION DATE:11/16/24 TIME: 104 PATIENT: STEFF SMILEY UNIT #: [id number] ROOM/BED: [place] [address] : 55 AGE: 68 SEX: F ATTEND: Sara Gerard MD ADM AUTHOR: Tiffani Sliva MD R1 REPT SERVICE DT/TIME: 11/16/24 1043 * ALL edits or amendments must be made on the electronic/computer document * Tiffani Silva 11/16/24 1043: Subjective HPI: 68-year-old female with past medical history of hypertension, hyperlipidemia, CKD, diabetes, peripheral vascular disease who was found to have significant left internal carotid artery stenosis. Patient underwent left CEA today. She was brought to CCU. At time of my exam patient very sleepy had received pain medication. But arousable. Followed commands answered all questions. Denies any headache. 11/16/2024- Patient seen and examined with her son at the bedside. Pain controlled. Minimal output from POLINA drain. Hemodynamically stable. Maintaining spo2 on room air. Review of Systems All systems rev neg: except as marked Objective General VS/I O Laboratory Tests 11/15 2023 Blood Gas Puncture Site Art Line O2 Saturation (90 - 100 %) 95.9 ABG pH (7.35 - 7.45) 7.347 L ABG pCO2 (35.0 - 45 mmHg) 45.5 H ABG pO2 (80 - 100.0 mmHg) 85.9 ABG PO2/FiO2 Ratio (mm/Hg) 409.04 ABG HCO3 (22.0 - 26.0 MMOL/L) 25.0 ABG Total CO2 (22 - 29) 26.4 ABG Base Excess (0 - +/ MMOL/L) -0.8 L ABG Hematocrit (33 - 45 %) 25 L ABG Hemoglobin (11.0 - 15.0 G/DL) 8.5 L Sodium (134 - 147 mmol/L) 142 Potassium (3.4 - 5.0 mmol/L) 4.2 Chloride (100 - 108 mmol/L) 108 Ionized Calcium (1.12 - 1.32 MMOL/L) 1.24 Lactic Acid (0.9 - 1.7 mmol/l) 1.0 Temperature (F) 97.9 O2 Delivery Device Room Air FiO2 (%) 21 Laboratory Tests 11/16 11/16 11/16 11/15 11/15 1135 0454 151 2022 175 Chemistry Sodium (134 - 147 mEq/L) 142 141 Potassium (3.4 - 5.0 mEq/L) 4.5 4.4 Chloride (100 - 108 mEq/L) 108 107 Carbon Dioxide (21 - 33 mEq/l) 24 26 Anion Gap (0 - 20) 14 12 BUN (7 - 25 mg/dL) 30 H 22 Creatinine (0.6 - 1.3 mg/dL) 1.3 1.1 POC Creatinine (0.6 - 1.3 mg/dL) 1.1 Glomerular Filtr Rate (80 - 90) 44.8 L 54.7 L Glucose (77 - 141 mg/dL) 258 H 238 H POC Glucose (70 - 110 MG/DL) 132 H 215 H POC Glucose (mg/dL) (70 - 110 MG/DL) 292 H Calcium (8.0 - 10.5 mg/dL) 8.0 8.1 11/15 0611 0557 Chemistry POC Glucose (70 - 110 MG/DL) 222 H 230 H Triglycerides (40 - 150 mg/dL) 308 H Cholesterol (<200 mg/dL) 234 H LDL Cholesterol [place] (0 - 100 mg/dL) 129.0 H HDL Cholesterol (40 - 60 MG/DL) 40.3 Cholesterol/HDL Ratio (3.27 - 4.44 RATIO) 5.81 H Laboratory Tests 11/15 1655 Coagulation Activated Coag Time (74 - 137 SEC) 279 H Laboratory Tests 11/16 11/16 11/15 0926 0454 175 Hematology WBC (4.5 - 11.0 x10 3/uL) 12.2 H RBC (3.54 - 5.02 x10 6/uL) 2.68 L Hgb (11.0 - 15.0 g/dL) 7.3 L 7.8 L 8.3 L Hct (33.0 - 45.0 %) 22.4 L 24.3 L 24.6 L MCV (81.0 - 99.0 fL) 90.7 MCH (27.0 - 33.0 pg) 29.1 MCHC (33.0 - 37.0 g/dL) 32.1 L RDW (11.5 - 14.5 %) 12.6 Plt Count (150 - 400 x10 3/uL) 213 MPV (7.0 - 9.0 fL) 10.4 H Neut % (Auto) (56.0 - 77.0 %) 88.1 H Lymph % (Auto) (14.0 - 32.0 %) 7.6 L [place] % (Auto) (4.8 - 9.0 %) 3.9 L Eos % (Auto) (0.3 - 3.7 %) 0.0 L Baso % (Auto) (0.0 - 2.0 %) 0.1 Neut # (Auto) (2.0 - 7.6 x10 3/uL) 10.77 H Lymph # (Auto) (1.0 - 3.8 x10 3/uL) 0.93 L [place] # (Auto) (0.1 - 0.8 x10 3/uL) 0.48 Eos # (Auto) (0.0 - 0.2 x10 3/uL) 0.00 Baso # (Auto) (0.0 - 0.2 x10 3/uL) 0.01 Abs Immat Gran (auto) (0.00 - 0.03 x10 3/uL) 0.04 H Immature Gran % (0.0 - 2.0 %) 0.3 Nucleated RBC % (0 - 0 %) 0.0 Nucleated RBCs # (Man) (0.0 - 0.1 x10 3/uL) 0.00 Current Medications Sig/Stephane Start time Last Medication Dose Route Stop Time Status Admin Aspirin 81 MG DAILY 11/16 900 AC 11/16 PO 02/14 Clopidogrel Bisulfate 75 MG DAILY 11/16 900 AC 11/16 PO 02/14 Ferrous Sulfate 325 MG DAILY 11/16 900 AC 11/16 PO 02/14 Lisinopril 10 MG DAILY 12/17 0900 AC PO 03/17 0859 Dextrose/Water 125 ML ASDIR PRN 11/16 0845 CKD IV 02/14 0844 Dextrose/Water 250 ML ASDIR PRN 11/16 0845 CKD IV 02/14 0844 Glucagon 1 MG ASDIR PRN 11/16 0845 AC IM 02/14 0844 Docusate Sodium 100 MG BID 11/15 2100 AC 11/16 PO 02/13 2059 0803 Glimepiride 4 MG BID 11/15 2100 AC 11/16 PO 02/13 2059 0803 Insulin Human Lispro 0 AC HS 11/15 2100 AC 11/16 SUBQ 02/13 2059 0805 Mupirocin 1 APPLIC BID 11/15 2100 AC 11/16 NASAL 11/20 0901 0803 Ondansetron HCl 0 .STK-MED ONE 11/15 1832 DC .ROUTE Hydralazine HCl 0 .STK-MED ONE 11/15 1824 DC .ROUTE Fentanyl Citrate 100 MCG PACU Q10MIN PRN PRN 11/15 1815 DC IV 11/16 0408 Fentanyl Citrate 50 MCG PACU Q10MIN PRN PRN 11/15 1815 DC IV 11/16 0408 Hydralazine HCl 5 MG PACU Q10MIN PRN PRN 11/15 1815 DC 11/15 IV 11/16 0408 1825 Hydromorphone HCl 1 MG PACU Q10MIN PRN PRN 11/15 1815 DC IV 11/16 0408 Hydromorphone HCl 0.5 MG PACU Q5MIN PRN PRN 11/15 1815 DC IV 11/16 0408 Insulin Human Lispro 0 PACU ONCE PRN 11/15 1815 DC SUBQ 11/16 0408 Labetalol HCl 5 MG PACU Q10MIN PRN PRN 11/15 1815 DC IV 11/16 0408 Meperidine HCl 12.5 MG PACU ONCE PRN 11/15 1815 DC IV 11/16 0408 Morphine Sulfate 2 MG PACU Q10MIN PRN PRN 11/15 1815 DC IV 11/16 0408 Ondansetron HCl 4 MG PACU ONCE PRN 11/15 1815 DC 11/15 IV 11/16 0408 1838 Ropivacaine 150 MG ASDIR PRN 11/15 1815 DC LOCAL 11/16 0408 Acetaminophen 650 MG Q4H PRN PRN 11/15 1715 AC 11/16 PO 02/13 1714 0508 Acetaminophen 650 MG Q4H PRN PRN 11/15 1715 AC PO 02/13 1714 Bisacodyl 10 MG DAILY PRN PRN 11/15 1715 AC RECTAL 02/13 1714 Hydralazine HCl 10 MG Q6H PRN PRN 11/15 1715 AC 11/15 IV 02/13 1714 2354 Hydrocodone Bitart/ 1 TAB Q4H PRN PRN 11/15 1715 AC Acetaminophen PO 11/20 1714 Magnesium Hydroxide 30 ML Q6H PRN PRN 11/15 1715 AC PO 02/13 1714 Ondansetron HCl 4 MG Q6H PRN PRN 11/15 1715 AC 11/16 IV 02/13 1714 0216 Sugammadex Sodium 0 .STK-MED ONE 11/15 1616 DC IV Cefazolin Sodium 0 .STK-MED ONE 11/15 1600 DC .ROUTE Dexamethasone Sodium 0 .STK-MED ONE 11/15 1546 DC Phosphate .ROUTE Fentanyl Citrate 0 .STK-MED ONE 11/15 1546 DC IV Heparin Sodium 0 .STK-MED ONE 11/15 1546 DC .ROUTE Lidocaine HCl 0 .STK-MED ONE 11/15 1546 DC .ROUTE Norepinephrine 0 .STK-MED ONE 11/15 1546 DC Bitartrate IV Ondansetron HCl 0 .STK-MED ONE 11/15 1546 DC .ROUTE Propofol 20 ML .STK-MED ONE 11/15 1546 DC IV Rocuronium [place] 0 .STK-MED ONE 11/15 1546 DC IV Sodium Chloride 250 ML .STK-MED ONE 11/15 1546 DC IV Cefazolin Sodium 2 GM PREOP ONCALL 11/11 1600 CKD Sodium Chloride 20 ML IV 11/18 1559 Acetaminophen 1,000 MG PREOP ONCALL 11/11 1300 CKD 11/15 PO 12/11 2358 0627 Gabapentin 200 MG PREOP ONCALL 11/11 1300 CKD 11/15 PO 12/11 2358 0630 Lactated Ringer's 1,000 ML PREOP ONCALL 11/11 1300 AC IV 12/11 235 Lidocaine HCl 2 ML PREOP ONCALL 11/11 1300 AC LOCAL 12/11 235 Lidocaine HCl 2 ML PREOP ONCALL 11/11 1300 AC LOCAL 12/11 235 Sodium Chloride 500 ML PREOP ONCALL 11/11 1300 AC IV 12/11 235 Sodium Chloride 500 ML PREOP ONCALL 11/11 1300 AC IV 12/11 235 Sodium Chloride 1,000 ML PREOP ONCALL 11/11 1300 AC IV 12/11 235 Sodium Chloride 5 ML ASDIR PRN 11/11 1300 AC IV 02/09 1259 Sodium Chloride 10 ML ASDIR PRN 11/11 1300 AC IV 02/09 1259 Sodium Chloride 100 ML ASDIR PRN 11/11 1300 AC IV 02/09 1259 Last Documented: Result Date Time Temp 37.3 11/16 1200 Pulse Ox 98 11/16 1152 Pulse 87 11/16 1152 Resp 10 11/16 1152 B/P 122/57 11/16 1100 B/P Mean 82 11/16 1100 O2 Delivery Room air 11/15 1945 O2 Flow Rate 6 11/15 1830 24 hour I O ending at 0700: 11/16 0700 11/15 1900 Intake Total 1150.00 Output Total 490 Balance 660.00 Intake, IV 1000.00 Intake, Oral 150 Output, 90 Drainage Output, 100 Emesis Output, Urine 300 Patient 44.3 kg Weight Weight Bed scale Measurement Method PATIENT WEIGHT: Weight (lb): 97 Weight (oz): 10.64 Weight (kg): 43.998 Free Text Obj Notes Free Text Obj Notes: GEN: Elderly female in no acute distress, slightly sleepy HEENT: Atraumatic, normocephalic, moist mucous membranes NECK: Supple, good range of motion, no tenderness LUNGS: Symmetrical air entry, no acute respiratory distress CV: S1, S2 regular rate and rhythm GI: Abdomen is soft, not tender or distended EXT/Musc: No edema or cyanosis. Pedal pulses present Skin: Surgical site clean, dry and intact. Warm to touch NEURO: Awake, alert and oriented x3. No facial droop or focal deficit Diagnosis, Assessment Plan Free text A P: 68yr old female admitted to CCU on 11/15/2024 s/p left carotid endarterectomy. Patient has past medical history of hypertension, hyperlipidemia, CKD, diabetes, peripheral vascular disease, severe left carotid artery senosis. 11/16/2024- Patient seen and examined with her son at the bedside. Pain controlled. Minimal output from POLINA drain. Hemodynamically stable. Maintaining spo2 on room air. Assessment Status post left carotid endarterectomy Carotid artery stenosis Hypertension Hyperlipidemia Type 2 diabetes Peripheral vascular disease PLAN Neuro -no acute issues CVS *s/p left carotid endarterectomy 11/15- continue ASA + Plavix -Neurovascular checks as per protocol -Minimal output from drain since last night -Pain controlled *Hypertension- controlled -resumed home meds Lisinopril 10mg/daily Resp -no acute issues -Maintaining spo2 on room air Endo *Diabetes Type II- on SSI Hematology *hx Chronic anemia- downtrending Hb 8.3>7.8>7.2 -monitor H H and transfuse if Hb<7 -continue PO Iron supplements[home meds] GI -no acute issues -no acute issues ID -no acute issues Diet- Diabetic diet SCDs for DVT prophylaxis Full code Dispo: Continue CCU care monitoring Mina Mackenzie 11/16/24 1624: Diagnosis, Assessment Plan Problem list/A P: 1. S/P carotid endarterectomy 2. Carotid stenosis Critical care time: Minutes: 35 Attestations Attestation needed: teaching physician Teaching Physician Attestation Crit care w/ resident: * Time spent on critical care management aside from any procedures: [ ] Patient seen evaluated with the resident. Discussed multidisciplinary team and consulting. Patient underwent carotid endarterectomy yesterday doing fairly well complaining of some nausea and vomiting. Ambulated no significant drainage out of drain. Neurologically intact. Discussed with primary service patient stable enough to be transferred/discharged today. at 1400 at 1625 [facility] #:[id number] END OF REPORT [facility] 2024-11-15 21:40:00 [facility] ([facility]) Critical Care Consult Note REPORT#:[id number] REPORT STATUS: Signed REPORT INITIALIZATION DATE:11/15/24 TIME: 2139 PATIENT: STEFF SMILEY UNIT #: [id number] ROOM/BED: [place] [address] : 55 AGE: 68 SEX: F ATTEND: Sara Gerard MD ADM AUTHOR: Leonel Rizzo MD REPT SERVICE DT/TIME: 11/15/242139 * ALL edits or amendments must be made on the electronic/computer document * History of Present Illness HPI Requesting clinician: Dr Gerard Reason for consult: Carotid artery stenosis s/p Left CEA HPI: 68-year-old female with past medical history of hypertension, hyperlipidemia, CKD, diabetes, peripheral vascular disease who was found to have significant left internal carotid artery stenosis. Patient underwent left CEA today. She was brought to CCU. At time of my exam patient very sleepy had received pain medication. But arousable. Followed commands answered all questions. Denies any headache. History - Adult longitudinal Past medical history: Reports: Diabetes mellitus, Hypertension, Dyslipidemia. Alcohol use: Denies EtOH use Drug use: Denies recreational drugs Smoking status for patients 13 years old or older: Never Smoker Allergies: Coded Allergies: No Known Allergies (11/11/24) Objective Physical Exam VS/I O: Last Documented: Result Date Time Pulse Ox 97 11/15 2114 B/P 155/47 11/15 2114 B/P Mean 81 11/15 2114 Pulse 96 11/15 2114 Resp 12 11/15 2114 Temp 36.6 11/15 2007 O2 Delivery Room air 11/15 1945 O2 Flow Rate 6 11/15 1830 Patient Weight and BMI Weight (kg): 44.300 BMI: 19.1 Medications: Active Meds + DC'd Last 24 Hrs Aspirin (ASPIRIN) 81 MG DAILY PO Clopidogrel Bisulfate (Plavix) 75 MG DAILY PO Ferrous Sulfate (FERROUS SULFATE) 325 MG DAILY PO Lisinopril (ZESTRIL) 10 MG DAILY PO Docusate Sodium (COLACE) 100 MG BID PO Glimepiride (AmaryL) 4 MG BID PO Insulin Human Lispro (HUMALOG) 0 AC HS SUBQ Mupirocin (BACTROBAN 2% 22 GM OINTMENT) 1 APPLIC BID NASAL Ondansetron HCl (ZOFRAN) 0 .STK-MED ONE .ROUTE (DC) Hydralazine HCl (APRESOLINE) 0 .STK-MED ONE .ROUTE (DC) Fentanyl Citrate (SUBLIMAZE) 100 MCG PACU Q10MIN PRN PRN IV Fentanyl Citrate (SUBLIMAZE) 50 MCG PACU Q10MIN PRN PRN IV Hydralazine HCl (APRESOLINE) 5 MG PACU Q10MIN PRN PRN IV Hydromorphone HCl (DILAUDID) 1 MG PACU Q10MIN PRN PRN IV Hydromorphone HCl (DILAUDID) 0.5 MG PACU Q5MIN PRN PRN IV Insulin Human Lispro (HUMALOG) 0 PACU ONCE PRN SUBQ Labetalol HCl (labetalol 100 mg/20 mL Inj) 5 MG PACU Q10MIN PRN PRN IV Meperidine HCl (MEPERIDINE HCL/PF) 12.5 MG PACU ONCE PRN IV Morphine Sulfate (morphine SULFATE) 2 MG PACU Q10MIN PRN PRN IV Ondansetron HCl (ZOFRAN) 4 MG PACU ONCE PRN IV Ropivacaine (NAROPIN 0.5% 150 MG/30mL) 150 MG ASDIR PRN LOCAL Acetaminophen (TYLENOL) 650 MG Q4H PRN PRN PO Acetaminophen (TYLENOL) 650 MG Q4H PRN PRN PO Bisacodyl (DULCOLAX) 10 MG DAILY PRN PRN RECTAL Hydralazine HCl (APRESOLINE) 10 MG Q6H PRN PRN IV Hydrocodone Bitart/Acetaminophen (NORCO 5/325) 1 TAB Q4H PRN PRN PO Magnesium Hydroxide (MILK OF MAGNESIA) 30 ML Q6H PRN PRN PO Ondansetron HCl (ZOFRAN) 4 MG Q6H PRN PRN IV Sugammadex Sodium (BRIDION) 0 .STK-MED ONE IV (DC) Cefazolin Sodium (KEFZOL OR ANCEF) 0 .STK-MED ONE .ROUTE (DC) Dexamethasone Sodium Phosphate (DECADRON) 0 .STK-MED ONE .ROUTE (DC) Fentanyl Citrate (SUBLIMAZE) 0 .STK-MED ONE IV (DC) Heparin Sodium (HEPARIN SODIUM) 0 .STK-MED ONE .ROUTE (DC) Lidocaine HCl (XYLOCAINE) 0 .STK-MED ONE .ROUTE (DC) Norepinephrine Bitartrate (LEVOPHED BITARTATE) 0 .STK-MED ONE IV (DC) Ondansetron HCl (ZOFRAN) 0 .STK-MED ONE .ROUTE (DC) Propofol (DIPRIVAN 200MG/20ML INJECTION) 20 ML .STK-MED ONE IV (DC) Rocuronium [place] (ZEMURON) 0 .STK-MED ONE IV (DC) Sodium Chloride (SODIUM CHLORIDE 0.9%) 250 ML .STK-MED ONE IV (DC) Hydralazine HCl (APRESOLINE) 0 .STK-MED ONE IV (DC) Hydralazine HCl (APRESOLINE) 0 .STK-MED ONE IV (DC) Hydralazine HCl (APRESOLINE) 5 MG STAT STA IV (DC) Acetaminophen (TYLENOL EXTRA STRENGTH) 0 .STK-MED ONE PO (DC) Gabapentin (NEURONTIN) 0 .STK-MED ONE PO (DC) Cefazolin Sodium (ceFAZolin 2 GM Inj) 2 GM PREOP ONCALL IV (CKD) Sodium Chloride (SODIUM CHLORIDE) 20 ML Acetaminophen (TYLENOL EXTRA STRENGTH) 1,000 MG PREOP ONCALL PO (CKD) Gabapentin (NEURONTIN) 200 MG PREOP ONCALL PO (CKD) Lactated Ringer's (LACTATED RINGERS) 1,000 ML PREOP ONCALL IV Lidocaine HCl (Lidocaine PF1% 20 mg/2 mL Inj) 2 ML PREOP ONCALL LOCAL Lidocaine HCl (Lidocaine PF1% 20 mg/2 mL Inj) 2 ML PREOP ONCALL LOCAL Sodium Chloride (SODIUM CHLORIDE 0.9%) 500 ML PREOP ONCALL IV Sodium Chloride (SODIUM CHLORIDE 0.9%) 500 ML PREOP ONCALL IV Sodium Chloride (SODIUM CHLORIDE 0.9%) 1,000 ML PREOP ONCALL IV Sodium Chloride (SODIUM CHLORIDE) 5 ML ASDIR PRN IV Sodium Chloride (SODIUM CHLORIDE) 10 ML ASDIR PRN IV Sodium Chloride (SODIUM CHLORIDE 0.9%) 100 ML ASDIR PRN IV Results Findings/Data: Laboratory Tests 11/15/24 1757: [Embedded Image Not Available] Laboratory Tests 11/15 2023 Blood Gas Puncture Site Art Line O2 Saturation (90 - 100 %) 95.9 ABG pH (7.35 - 7.45) 7.347 L ABG pCO2 (35.0 - 45 mmHg) 45.5 H ABG pO2 (80 - 100.0 mmHg) 85.9 ABG PO2/FiO2 Ratio (mm/Hg) 409.04 ABG HCO3 (22.0 - 26.0 MMOL/L) 25.0 ABG Total CO2 (22 - 29) 26.4 ABG Base Excess (0 - +/ MMOL/L) -0.8 L ABG Hematocrit (33 - 45 %) 25 L ABG Hemoglobin (11.0 - 15.0 G/DL) 8.5 L Sodium (134 - 147 mmol/L) 142 Potassium (3.4 - 5.0 mmol/L) 4.2 Chloride (100 - 108 mmol/L) 108 Ionized Calcium (1.12 - 1.32 MMOL/L) 1.24 Lactic Acid (0.9 - 1.7 mmol/l) 1.0 Temperature (F) 97.9 O2 Delivery Device Room Air FiO2 (%) 21 Laboratory Tests 11/15 1757 1752 0611 0557 Chemistry Sodium (134 - 147 mEq/L) 141 Potassium (3.4 - 5.0 mEq/L) 4.4 Chloride (100 - 108 mEq/L) 107 Carbon Dioxide (21 - 33 mEq/l) 26 Anion Gap (0 - 20) 12 BUN (7 - 25 mg/dL) 22 Creatinine (0.6 - 1.3 mg/dL) 1.1 POC Creatinine (0.6 - 1.3 mg/dL) 1.1 Glomerular Filtr Rate (80 - 90) 54.7 L Glucose (77 - 141 mg/dL) 238 H POC Glucose (70 - 110 MG/DL) 222 H 230 H POC Glucose (mg/dL) (70 - 110 MG/DL) 292 H Calcium (8.0 - 10.5 mg/dL) 8.1 Triglycerides (40 - 150 mg/dL) 308 H Cholesterol (<200 mg/dL) 234 H LDL Cholesterol Measurd (0 - 100 mg/dL) 129.0 H HDL Cholesterol (40 - 60 MG/DL) 40.3 Cholesterol/HDL Ratio (3.27 - 4.44 5.81 H RATIO) Laboratory Tests 11/15 1655 Coagulation Activated Coag Time (74 - 137 SEC) 279 H Laboratory Tests 11/15 1757 Hematology Hgb (11.0 - 15.0 g/dL) 8.3 L Hct (33.0 - 45.0 %) 24.6 L Free Text Obj Notes Free Text Obj Notes: GEN: Elderly female in no acute distress, slightly sleepy HEENT: Atraumatic, normocephalic, moist mucous membranes NECK: Supple, good range of motion, no tenderness LUNGS: Symmetrical air entry, no acute respiratory distress CV: S1, S2 regular rate and rhythm GI: Abdomen is soft, not tender or distended EXT/Musc: No edema or cyanosis. Pedal pulses present Skin: Surgical site clean, dry and intact. Warm to touch NEURO: Awake, alert and oriented x3. No facial droop or focal deficit Diagnosis, Assessment Plan Free text DxA P: 68-year-old female admitted to CCU Status post left carotid endarterectomy Carotid artery stenosis Hypertension Hyperlipidemia Type 2 diabetes Peripheral vascular disease Neurovascular checks as per protocol. Continue monitor the output from the drain. Patient was noted to have a drop in the hemoglobin continue to monitor output. Has not needed any transfusion. Maintaining the blood pressure. Pain control. If any neurochanges noted inform immediately. Glycemic control. On insulin sliding scale. Resume glimepiride from tomorrow. Blood pressure control. Aspirin and Plavix Continue monitor the urine output. Patient is on room air. SCDs for DVT prophylaxis. Full code. Total critical care time 31 minutes excluding procedures Quality: Gen [facility] Crit Care Current Medications Current medication review: I attest that the foregoing medication list in the medical record is true, accurate, and complete to the best of my knowledge. Advanced Care Plan 65 or Older Discussed with: patient at 2148 RPT #:[id number] END OF REPORT [facility] 2024-11-15 17:28:00 [id number] [place] [address] PATIENT NAME: STEFF SMILEY ADMIT DATE: 11/15/24 ACCOUNT NO: [id number] ROOM NO: [facility] [place] AGE: 68 REPORT TYPE: OPERATIVE REPORT SEX: F ADMITTING PHYSICIAN:Sara Gerard MD ATTENDING PHYSICIAN:Sara Gerard MD OPERATION DATE: 11/15/2024 PREOPERATIVE DIAGNOSIS: Severe left internal carotid artery stenosis. POSTOPERATIVE DIAGNOSIS: Severe left internal carotid artery stenosis. PROCEDURE: Left carotid endarterectomy. SURGEON: Treasure Gerard MD [place] OPERATOR: Kimmy Wells ANESTHESIOLOGIST: Dr. Aaron ANESTHESIA: General endotracheal anesthesia. ESTIMATED BLOOD LOSS: 20 mL INDICATIONS: Ms. Smiley is a 68-year-old female with severe left internal carotid artery stenosis. After due preop counseling, she was brought to the operating room today for left carotid endarterectomy. FINDINGS: 1. Heavily calcified plaque in the left common carotid artery extending into left internal carotid artery leading to a pinhole opening in the left internal carotid artery. 2. The left hypoglossal nerve was identified and protected all throughout the procedure. 3. There was a good endpoint in the left internal carotid artery following endarterectomy. 4. The patient was moving all extremities and the tongue was in midline at the end of the case. DESCRIPTION OF PROCEDURE: Ms. Smiley was identified in the preoperative holding area and brought to the operating room and placed supine on the operating table. After induction of general endotracheal anesthesia, antibiotics were placed. The left side of the neck was prepped and draped in standard surgical fashion. A 4 cm incision was made along the anterior border of middle third left sternocleidomastoid muscle. Platysma was divided with Bovie cautery. The deep cervical fascia was opened. Facial vein was identified, dissected, ligated and divided. The left hypoglossal nerve was identified and protected throughout the case. The left common, left internal and left external carotid arteries were identified, dissected and isolated. The patient was heparinized to keep an ACT PATIENT NAME: STEFF SMILEY more than 250 seconds. Bifurcation of the left common carotid artery was isolated between 3 profunda clamp. Arteriotomy was performed in the long axis of the left common carotid artery. This extended onto the left internal carotid artery using a Pott scissors. Endarterectomy of the left common and internal carotid artery was performed using a [place] dissector and endarterectomy of the left external was performed using eversion technique. There was good endpoint in the left internal carotid artery following endarterectomy. The patient had good backbleeding from the left internal carotid artery and her cerebral oximetry remained unchanged and hence I did not use a shunt. Next, the left common and internal carotid artery were irrigated with heparinized saline. Patch repair of the right common and internal carotid artery was performed using bovine pericardial patch using running 6-0 Prolene suture. Prior to tying the patch down, careful de-aeration was performed. A 7 POLINA was placed in the neck. Hemostasis was achieved. The incision was closed in layers using 2-0 Vicryl for platysma and 4-0 Vicryl for the skin. The patient was extubated in the operating room and moved to PACU in stable condition. Instrument and swab counts were reported correct at the end of the case. Dictated By: Treasure Gerard MD Date Dictated: 11/15/2024 17:28:35 Date Transcribed: 11/15/2024 22:28:10 [facility] Receipt ID: [id number] Authenticated by Sara Gerard MD On 11/20/2024 04:39:50 PM at 0439 PATIENT NAME: STEFF SMILEY [facility] 2024-11-15 13:57:00 [facility] ([facility]) History Physical - Adult REPORT#:[id number] REPORT STATUS: Signed REPORT INITIALIZATION DATE:11/15/24 TIME: 1356 PATIENT: STEFF SMILEY UNIT #: [id number] ROOM/BED: [place] [address] : 55 AGE: 68 SEX: F ATTEND: Sara Gerard MD ADM AUTHOR: Katerine Matamoros APRN REPT SERVICE DT/TIME: 11/15/241356 * ALL edits or amendments must be made on the electronic/computer document * Katerine Matamoros 11/15/24 1357: History of Present Illness HPI Chief complaint: carotid artery stenosis PCP: PCP: Sara Gerard MD HPI: This is a 68-year-old female with a past medical history of hypertension, hyperlipidemia, CKD, type 2 diabetes, peripheral vascular disease who was found to have significant 80% left internal carotid artery stenosis and severe peripheral vascular disease. The patient initially reports she is complaining of headache somewhat for further workup with her primary care physician. Carotid Doppler was completed showing evidence of left carotid stenosis. Patient had an angiogram completed on 10/13/2024 also showing significant left internal carotid artery stenosis. Patient denies any dizziness or history of stroke. Patient is being admitted today for left carotid endarterectomy. Hx Obtained From Patient History Past medical history: Reports: Diabetes mellitus, Hypertension, Dyslipidemia. Additional medical history: PVD Additional surgical history: none Alcohol use: Denies EtOH use Drug use: Denies recreational drugs Smoking status for patients 13 years old or older: Never Smoker Medication/Allergy-Vaccine Hx Allergies: Coded Allergies: No Known Allergies (11/11/24) Review of Systems Constitutional: Reports: generalized weakness. Denies: chills, fever. Skin: Denies: abrasion, diaphoresis, itching. Allergy/Immun: Denies: allergic reaction, hives, rhinorrhea. Respiratory: Denies: MAC (dyspnea on exertion), pneumonia, SOB. Cardiovascular: Denies: chest pain, palpitations. GI: Denies: abdominal pain, nausea, vomiting. : Denies: dysuria, flank pain. Musculoskeletal: Extremity pain: Reports: right lower. Heme: Denies: adenopathy. Neuro: Denies: confusion, dizziness, seizure, syncope. All systems rev neg: except as marked Physical Exam VS/I O Vital Signs: Date Time Temp Pulse Resp B/P B/P Pulse O2 O2 Flow FiO2 Mean Ox Delivery Rate 11/15 0721 81 16 185/83 11/15 0653 81 16 212/86 11/15 0631 97.3 73 16 230/95 100 Room air PATIENT WEIGHT: Weight (lb): 101 Weight (oz): 3.39 Weight (kg): 45.909 General appearance: alert, awake, oriented Head/Eyes: atraumatic, normocephalic ENT: moist mucosal membranes Neck: full range of motion, non-tender Cardiovascular: normal capillary refill, normal heart sounds Respiratory: no distress, aerating well Abdomen/GI: active bowel sounds, soft, non-tender Genitourinary: not indicated Extremities: moves all, normal range of motion Musculoskeletal: full range of motion, normal inspection Neuro/SUPERVISOR BRAIDING: alert, oriented X 3 Skin: dry, intact, no gross abnormalities Psychiatry: normal affect, normal mood Results Findings/Data: Laboratory Tests: 11/15 11/15 0611 0557 Chemistry POC Glucose (70 - 110 MG/DL) 230 H Triglycerides (40 - 150 mg/dL) 308 H Cholesterol (<200 mg/dL) 234 H LDL Cholesterol Measurd (0 - 100 mg/dL) 129.0 H HDL Cholesterol (40 - 60 MG/DL) 40.3 Cholesterol/HDL Ratio (3.27 - 4.44 RATIO) 5.81 H Results: labs reviewed, vital signs reviewed, vital signs stable, rhythm personally rev'd, current med profile rev'd Treatment Prophylaxis Treatment Prophylaxis CVC/PICC documentation: The data below has been imported from nursing documentation. Any exceptions have been noted below under Provider comments. CVC/PICC insertion date/time: Provider comments on imported nursing data: [] Diagnosis, Assessment Plan Plan discussed with: patient, family, collaborating MD, nurse Code Status/Resusc. Discussion Resuscitation discussion: Discussed with: patient Code status: full code Free Text DxA P Notes Free Text DxA P Notes: This is a 68-year-old female with a past medical history of hypertension, hyperlipidemia, CKD, type 2 diabetes, peripheral vascular disease who was found to have significant 80% left internal carotid artery stenosis and severe peripheral vascular disease. The patient initially reports she is complaining of headache somewhat for further workup with her primary care physician. Carotid Doppler was completed showing evidence of left carotid stenosis. Patient had an angiogram completed on 10/13/2024 also showing significant left internal carotid artery stenosis. Patient denies any dizziness or history of stroke. Patient is being admitted today for left carotid endarterectomy. Assessment/plan: 1. Left carotid artery stenosis 2. Hypertension 3. Hyperlipidemia 4. Peripheral vascular disease 5. Type 2 diabetes Patient seen and evaluated by Dr. Gerard. Angiogram and Dopplers reviewed and patient will benefit from surgical intervention to her carotid artery. Dr. Gerard has explained the need for the operation. He discussed with the patient the operation, riskd involved, including stroke, benefits, alternatives, and complications. Patient acknowledges understanding and is agreeable to proceed. All patient's questions were answered and consent is obtained. Patient is being admitted today for left carotid endarterectomy. Admit to CCU postoperatively Monitor neurostatus Strict I's and O's Critical care consulted Quality: Gen Med Crit Care Current Medications Current medication review: I attest that the foregoing medication list in the medical record is true, accurate, and complete to the best of my knowledge. Advanced Care Plan 65 or Older Discussed with: patient Sara Gerard 12/01/24 1813: Attestations Physician Attestation Agree w/findings plan: I have seen and examined Ms. Smiley. I agree with the findings and plan as documented by RENETTA Downs. Briefly, 60-year-old female with severe left internal carotid artery stenosis being admitted to the hospital for left carotid endarterectomy. I explained to her the procedure, risk involved, benefit, alternatives, and complications. Patient verbalized understanding the risk and has consented for surgery. at 1408 at 1833 RPT #:[id number] END OF REPORT [facility] 2024-11-11 12:16:00 [id number] [place] [address] PATIENT NAME: STEFF SMILEY ADMIT DATE: ACCOUNT NO: [id number] ROOM NO: AGE: 68 REPORT TYPE: eELECTROCARDIOGRAM REPORT SEX: F ADMITTING PHYSICIAN: ATTENDING PHYSICIAN:Sara Gerard MD Order: [id number] Test Reason : PREOP Test Date/Time Stamp: FriNov 11 2024 12:16:51 Blood Pressure : / mmHG Vent. Rate : 076 BPM Atrial Rate : 076 BPM P-R Int : 132 ms QRS Dur : 082 ms QT Int : 394 ms P-R-T Axes : 037 042 016 degrees QTc Int : 443 ms Normal sinus rhythm Nonspecific ST abnormality Abnormal ECG No previous ECGs available Confirmed by JEFFY WRIGHT MD ([id number]) on 11/13/2024 2:24:12 PM Referred By: Sara Gerard Confirmed by:JACKY WRIGHT MD at 0837 PATIENT NAME: STEFF SMILEY [facility]
[2025-01-25] MEDS ORDERED: MORPHINE 4 MG/ML SYR ONE (04:29)
[2025-01-25] MEDS ORDERED: LABETALOL 20 MG/4ML SYRINGE IV ONE (04:29)
[2025-01-25] MEDS ORDERED: ONDANSETRON 4 MG/2 ML VIAL ONE (04:29)
[2025-01-25 04:38] LABS: Hemoglobin 10.5 g/dL (12.0-15.0); MCHC 35.4 g/dL (32.0-36.0); Nucleated Red Blood Cells % 0.1 % (0-0)
[2025-01-25 04:53] LABS: Absolute Basophils 0.1 K/uL (0-0.5); Absolute Eosinophils 0.2 K/uL (0-0.5); Absolute Lymphocytes (CBC) 2.7 K/uL (0.7-4.9); Absolute Monocytes 0.7 K/uL (0.1-1.3); Absolute Neutrophil 3.2 K/uL (1.8-8.0); Basophils % 0.8 % (0-1.3); Hematocrit 29.8 % (36.0-45.0); Lymphocytes % 39.8 % (15.3-44.8); MCH 29.8 pg (27.0-35.0); MCV 84.1 fL (80-100); MPV 8.6 fL (7.6-11.3); Monocytes % 9.5 % (3.3-12.3); Neutrophils % 46.9 % (41.7-73.7); Platelets 228 thou/uL (152-406); RBC Red Blood Cell Count 3.54 M/uL (3.86-4.86); Red Cell Distribution Width 13.5 % (12.1-15.2)
[2025-01-25 04:59] LABS: Anion Gap 4.8 mEq/L (5.0-15.0); Potassium 3.8 mEq/L (3.5-5.1); Troponin High Sensitivity 8.6 pg/mL (<58.9)
--- NOTE | 2025-01-25 06:02 | RAD REPORT ---
EXAM DESCRIPTION: X-ray single view chest. CLINICAL HISTORY: 69 years Female, PAIN COMPARISON: Chest x-ray report from 11/18/2024. The image was unavailable for review. TECHNIQUE: Single portable x-ray view of the chest performed on 01/25/2025 at 4:22 AM FINDINGS: The lungs are well expanded and are clear. There is no evidence of a pneumothorax. The cardiac silhouette is normal in size and configuration. The mediastinal contours are normal. No acute osseous abnormality is identified. No focal soft tissue abnormalities are seen. There are surgical clips present along the left side of the neck. Lines and tubes: None. Free air: None identified, IMPRESSION: No evidence of acute intrathoracic disease. Electronically signed by: Renee Moran DO 01/25/2025 05:59 AM [facility] Due to temporary technical issues with the PACS/Digicompanion reporting system, reports are being frida d by the in-house radiologist without review as a courtesy to ensure prompt reporting the interpreting radiologist is fully responsible for the content of the report. Transcribed Date/Time: 01/25/2025 6:02 AM
--- NOTE | 2025-01-25 06:29 | EDPHYS ---
Physician Documentation [facility] Name: Myriam Bryant Age: 69 yrs Sex: Female : 1955 Arrival Date: 01/25/2025 Time: 03:36 Bed 5 Private MD: ED Physician Kate Dennis HPI: 01/25 04:17 This 69 yrs old Female presents to ER via Ambulatory with complaints of sp3 headache, neck pain, High Blood Pressure. 04:17 69-year-old female with a history of carotid endarterectomy performed in October 2024, sp3 hyperlipidemia, hypertension presents to the ED with chief complaint headache for 24 hours, left neck pain at endarterectomy surgical site and mild cough. She denies any trauma, sudden onset of headache, fever, neck stiffness, chest pain, back pain, shortness of breath, Chris pain, vomit, diarrhea, syncope, focal neurological deficit, or any other signs or symptoms on ROS at this time.. Historical: - Allergies: 04:00 No Known Allergies; al5 - PMHx: 04:00 Arthritis; Diabetes - NIDDM; Hyperlipidemia; Hypertensive disorder; al5 - PSHx: 04:00 None; al5 - Immunization history:: Adult Immunizations up to date. - Infectious Disease History:: Denies. - Social history:: Smoking status: Patient denies any tobacco usage or history of. ROS: 04:19 Constitutional: Negative for fever, chills, and weight loss, Eyes: Negative for injury, sp3 pain, redness, and discharge, ENT: Negative for injury, pain, and discharge, Cardiovascular: Negative for chest pain, palpitations, and edema, Respiratory: Negative for shortness of breath, cough, wheezing, and pleuritic chest pain, Abdomen/GI: Negative for abdominal pain, nausea, vomiting, diarrhea, and constipation, Back: Negative for injury and pain, MS/Extremity: Negative for injury and deformity, Skin: Negative for injury, rash, and discoloration, Psych: Negative for depression, anxiety, suicide ideation, homicidal ideation, and hallucinations, Allergy/Immunology: Negative for hives, rash, and allergies, Endocrine: Negative for neck swelling, polydipsia, polyuria, polyphagia, and marked weight changes, Hematologic/Lymphatic: Negative for swollen nodes, abnormal bleeding, and unusual bruising, 04:19 All other systems are negative, Exam: 04:19 Constitutional: This is a well developed, well nourished patient who is awake, alert, sp3 and in no acute distress. Eyes: Pupils equal round and reactive to light, extra-ocular motions intact. Lids and lashes normal. Conjunctiva and sclera are non-icteric and not injected. Cornea within normal limits. Periorbital areas with no swelling, redness, or edema. ENT: Nares patent. No nasal discharge, no septal abnormalities noted. External auditory canals are clear. Oropharynx with no redness, swelling, or masses, exudates, or evidence of obstruction, uvula midline. Mucous membranes moist. Chest/axilla: Normal chest wall appearance and motion. Nontender with no deformity. No lesions are appreciated. Cardiovascular: Regular rate and rhythm with a normal S1 and S2. No gallops, murmurs, or rubs. Normal PMI, no JVD. No pulse deficits. Respiratory: Lungs have equal breath sounds bilaterally, clear to auscultation and percussion. No rales, rhonchi or wheezes noted. No increased work of breathing, no retractions or nasal flaring. Abdomen/GI: Soft, non-tender, with normal bowel sounds. No distension or tympany. No guarding or rebound. No evidence of tenderness throughout. Back: No spinal tenderness. No costovertebral tenderness. Full range of motion. Skin: Warm, dry with normal turgor. Normal color with no rashes, no lesions, and no evidence of cellulitis. MS/ Extremity: Pulses equal, no cyanosis. Neurovascular intact. Full, normal range of motion. Neuro: Awake and alert, GCS 15, oriented to person, place, time, and situation. Cranial nerves II-XII grossly intact. Motor strength 5/5 in all extremities. Sensory grossly intact. Cerebellar exam normal. Normal gait. Psych: Awake, alert, with orientation to person, place and time. Behavior, mood, and affect are within normal limits. 04:19 Neck: Pain to palpation at left carotid site. Pulses present. Normal neurological exam. Blood pressure currently 230/80., 04:26 ECG was reviewed by the Attending Physician. EKG demonstrates normal sinus rhythm at 78 sp3 bpm with normal intervals, normal axis, poor R wave progression and nonspecific diffuse ST/changes without evidence of acute ischemia. Vital Signs: 03:47 BP 230 / 80; Pulse 88; Resp 17 S; Temp 98.4(O); Pulse Ox 100% on R/A; Weight 47.63 kg; ha1 Height 4 ft. 11 in. ; 04:00 BP 224 / 71; Pulse 78; Resp 18; Pulse Ox 100% on R/A; al5 04:15 BP 223 / 70; Pulse 76; Resp 17; Pulse Ox 100% on R/A; al5 04:45 BP 169 / 53; Pulse 81; Resp 16; Pulse Ox 99% on R/A; al5 05:00 BP 171 / 62; Pulse 75; Resp 16; Pulse Ox 100% on R/A; al5 05:15 BP 165 / 54; Pulse 72; Resp 15; Pulse Ox 100% on R/A; al5 05:30 BP 171 / 59; Pulse 72; Resp 14; Pulse Ox 100% on R/A; al5 05:45 BP 166 / 54; Pulse 73; Resp 14; Pulse Ox 100% on R/A; al5 06:00 BP 159 / 55; Pulse 72; Resp 14; Pulse Ox 100% on R/A; al5 06:46 BP 132 / 57; Pulse 81; Resp 17 S; Pulse Ox 100% on R/A; ha1 03:47 Body Mass Index 21.21 (47.63 kg, 149.86 cm) ha1 MDM: 03:52 Medical Screening Exam initiated sp3 04:20 Data reviewed: vital signs, nurses notes, old medical records, lab test result(s), EKG, sp3 radiologic studies. ED course: 69-year-old female with PMH above now with headache and left neck pain at carotid endarterectomy surgical site. Differential diagnosis includes hypertensive urgency, idiopathic hypertension, idiopathic headache, vascular compromise including dissection, among others. Workup will include CT scan of the head, CT angiogram of the head and neck, general labs, EKG and general supportive care. Labetalol as needed for blood pressure control. Disposition pending workup and patient course.. 06:27 ED course: Full workup negative including CT angiograms and CT. Blood pressure now sp3 159/55 and all symptoms are resolved. Will safely discharge patient home at this time.. 01/25 03:59 Order name: Basic Metabolic Panel; Complete Time: 04:59 ha 01/25 03:59 Order name: CBC with Diff; Complete Time: 04:56 01/25 03:59 Order name: Troponin HS; Complete Time: 04:59 01/25 03:59 Order name: XRAY Chest (1 view) 01/25 04:07 Order name: CT Neck Angio sp3 01/25 04:07 Order name: CT Head Brain wo Cont 3 01/25 04:12 Order name: CT Head Angio 3 01/25 03:59 Order name: Cardiac monitoring; Complete Time: 04:13 01/25 03:59 Order name: EKG - Nurse/Tech; Complete Time: 04:13 01/25 03:59 Order name: IV Saline Lock; Complete Time: 04:22 01/25 03:59 Order name: Labs collected and sent; Complete Time: 04:22 01/25 03:59 Order name: O2 Per Protocol; Complete Time: 04:04 01/25 03:59 Order name: O2 Sat Monitoring; Complete Time: 04:04 01/25 04:07 Order name: NPO; Complete Time: 04:13 sp3 Administered Medications: 04:40 Drug: Labetalol IV 10 mg IV at calculated rate once Route: IV; Rate: calculated rate; ha1 Site: left antecubital; 06:04 Follow up: Response: No adverse reaction; IV Status: Completed infusion; IV Intake: 2ml al5 04:41 Drug: Ondansetron IVP 4 mg IVP once; over 2 minutes Route: IVP; Site: left antecubital; 1 06:04 Follow up: Response: No adverse reaction al5 04:46 Not Given (Patient Refused): morphineor iv 4 mg IVP once over 4 mins 1 Disposition Summary: 01/25/25 06:28 Discharge Ordered Notes: Location: Home sp3 Condition: Stable sp3 Diagnosis - Hypertensive urgency, headache sp3 Followup: sp3 - With: Private Physician - When: Upon discharge from the Emergency Department - Reason: Continuance of care Discharge Instructions: - Discharge Summary Sheet sp3 - General Headache Without Cause sp3 Forms: - Medication Reconciliation Form sp3 - Antibiotic Education sp3 - Prescription Opioid Use sp3 - Patient Portal Instructions sp3 - Leadership Thank You Letter sp3 Signatures: Dispatcher [employer] EDMS Kate Dennis MD MD sp3 Lisa Zamudio, RN RN ha1 Veronika Frost, RN RN al5 Corrections: (The following items were deleted from the chart) 04:00 04:00 BASIC METABOLIC PANEL+C.LAB.BRZ ordered. EDMS EDMS 04:00 04:00 CBC+H.LAB.BRZ ordered. EDMS EDMS 04:00 04:00 Troponin High Sensitivity+C.LAB.BRZ ordered. EDMS EDMS 04:00 04:00 Chest Single View+RAD.RAD.BRZ ordered. EDMS EDMS
--- NOTE | 2025-01-25 06:29 | ER ---
Nurse's Notes Formerly [facility] Name: Myriam Bryant Age: 69 yrs Sex: Female : 1955 Arrival Date: 01/25/2025 Time: 03:36 Bed 5 Private MD: Diagnosis: Hypertensive urgency, headache Presentation: 01/25 03:47 Chief complaint: Patient states: HIGH BLOOD PRESSURE. NECK PAIN AT THE SURGICAL SITE. ha1 CAROTID ARTERY SURGERY IN OCTOBER. BODY CHILLS, WEAKNESS. 03:47 Coronavirus screen: Client denies travel out of the [place] in the last 14 days. Ebola ha1 Screen: No symptoms or risks identified at this time. Initial Sepsis Screen: Does the patient meet any 2 criteria? No. Patient's initial sepsis screen is negative. Does the patient have a suspected source of infection? No. Patient's initial sepsis screen is negative. Risk Assessment: Do you want to hurt yourself or someone else? Patient reports no desire to harm self or others. Onset of symptoms was January 25, 2025. 03:47 Method Of Arrival: Ambulatory ha1 03:47 Acuity: VALDEMAR 2 ha1 Historical: - Allergies: 04:00 No Known Allergies; al5 - PMHx: 04:00 Arthritis; Diabetes - NIDDM; Hyperlipidemia; Hypertensive disorder; al5 - PSHx: 04:00 None; al5 - Immunization history:: Adult Immunizations up to date. - Infectious Disease History:: Denies. - Social history:: Smoking status: Patient denies any tobacco usage or history of. Screenin:11 [facility] ED Fall Risk Assessment (Adult) History of falling in the last 3 months, al5 including since admission No falls in past 3 months (0 pts) Confusion or Disorientation No (0 pts) Intoxicated or Sedated No (0 pts) Impaired Gait No (0 pts) Mobility Assist Device Used No (0 pt) Altered Elimination No (0 pt) Score/Fall Risk Level 0 - 2 = Low Risk Oriented to surroundings, Maintained a safe environment, Hourly rounding (assess needs \T\ fall precautionary measures) done. Abuse screen: Denies threats or abuse. Denies injuries from another. Nutritional screening: No deficits noted. Tuberculosis screening: No symptoms or risk factors identified. Assessment: 04:11 General: Appears in no apparent distress. Behavior is calm, cooperative. Pain: al5 Complains of pain in head and neck Pain currently is 5 out of 10 on a pain scale. Neuro: Level of Consciousness is awake, alert, obeys commands, Oriented to person, place, time, situation. Cardiovascular: Reports high blood pressure Capillary refill < 3 seconds Patient's skin is warm and dry. Rhythm is sinus rhythm. Respiratory: Airway is patent Respiratory effort is even, unlabored, Respiratory pattern is regular, symmetrical. GI: No signs and/or symptoms were reported involving the gastrointestinal system. : No signs and/or symptoms were reported regarding the genitourinary system. EENT: No signs and/or symptoms were reported regarding the EENT system. Derm: Skin is intact, is healthy with good turgor, Skin is pink, warm \T\ dry. normal. Musculoskeletal: No signs and/or symptoms reported regarding the musculoskeletal system. 04:57 Reassessment: Patient and/or family updated on plan of care and expected duration. Pain ha1 level reassessed. Patient is alert, oriented x 3, equal unlabored respirations, skin warm/dry/pink. Patient states feeling better. Patient states symptoms have improved. 06:04 Reassessment: Patient appears in no apparent distress at this time. No changes from al5 previously documented assessment. Patient and/or family updated on plan of care and expected duration. Pain level reassessed. Patient is alert, oriented x 3, equal unlabored respirations, skin warm/dry/pink. 06:46 Reassessment: Patient and/or family updated on plan of care and expected duration. Pain ha1 level reassessed. Patient is alert, oriented x 3, equal unlabored respirations, skin warm/dry/pink. Patient denies pain at this time. Patient states feeling better. Patient states symptoms have improved. Vital Signs: 03:47 BP 230 / 80; Pulse 88; Resp 17 S; Temp 98.4(O); Pulse Ox 100% on R/A; Weight 47.63 kg; ha1 Height 4 ft. 11 in. ; 04:00 BP 224 / 71; Pulse 78; Resp 18; Pulse Ox 100% on R/A; al5 04:15 BP 223 / 70; Pulse 76; Resp 17; Pulse Ox 100% on R/A; al5 04:45 BP 169 / 53; Pulse 81; Resp 16; Pulse Ox 99% on R/A; al5 05:00 BP 171 / 62; Pulse 75; Resp 16; Pulse Ox 100% on R/A; al5 05:15 BP 165 / 54; Pulse 72; Resp 15; Pulse Ox 100% on R/A; al5 05:30 BP 171 / 59; Pulse 72; Resp 14; Pulse Ox 100% on R/A; al5 05:45 BP 166 / 54; Pulse 73; Resp 14; Pulse Ox 100% on R/A; al5 06:00 BP 159 / 55; Pulse 72; Resp 14; Pulse Ox 100% on R/A; al5 06:46 BP 132 / 57; Pulse 81; Resp 17 S; Pulse Ox 100% on R/A; ha1 03:47 Body Mass Index 21.21 (47.63 kg, 149.86 cm) ha1 ED Course: 03:41 Patient arrived in ED. gm2 03:52 Kate Dennis MD is Attending Physician. sp3 04:00 Arm band placed on right wrist. Patient placed in the treatment room, on a stretcher, al5 in view of staff members, on antisqueak chalker, on pulse oximetry. 04:04 Veronika Frost, RN is Primary Nurse. al5 04:11 No provider procedures requiring assistance completed. al5 04:11 Patient has correct armband on for positive identification. Bed in low position. Call al5 light in reach. Side rails up X2. Provided Education on: plan of care. 04:12 EKG done, by ED staff. td1 04:14 Triage completed. ha1 04:14 Door closed. Warm blanket given. td1 04:15 Inserted saline lock: 20 gauge in left antecubital area, using aseptic technique. td1 04:22 Initial lab(s) drawn, by me, sent to lab. td1 04:29 XRAY Chest (1 view) In Process Unspecified. EDMS 04:41 CT Neck Angio In Process Unspecified. EDMS 04:41 CT Head Brain wo Cont In Process Unspecified. EDMS 04:41 CT Head Angio In Process Unspecified. EDMS 06:41 Removal of peripheral IV. Catheter intact, dressing applied. td1 06:47 IV discontinued, intact, bleeding controlled, No redness/swelling at site. Pressure ha1 dressing applied. Administered Medications: 04:40 Drug: Labetalol IV 10 mg IV at calculated rate once Route: IV; Rate: calculated rate; ha1 Site: left antecubital; 06:04 Follow up: Response: No adverse reaction; IV Status: Completed infusion; IV Intake: 2ml al5 04:41 Drug: Ondansetron IVP 4 mg IVP once; over 2 minutes Route: IVP; Site: left antecubital; ha1 06:04 Follow up: Response: No adverse reaction al5 04:46 Not Given (Patient Refused): morphineor iv 4 mg IVP once over 4 mins ha1 Medication: 04:11 VIS not applicable for this client. al5 Intake: 06:04 IV: 2ml; Total: 2ml. al5 Outcome: 06:28 Discharge ordered by . sp3 06:47 Discharged to home ambulatory, with family, ha1 06:47 Condition: stable 06:47 Discharge instructions given to patient, family, Instructed on discharge instructions, follow up and referral plans. Demonstrated understanding of instructions, follow-up care, 06:47 Patient left the ED. ha1 Signatures: Dispatcher [employer] EDKate Muller MD MD sp3 Lisa Zamudio RN RN ha1 Yamilet Chahal gm2 Veronika Frost RN RN al5 Sushant Álvarez td1 Corrections: (The following items were deleted from the chart) 04:33 04:31 Initial lab(s) drawn, by me, sent to lab. td1 td1 04:33 04:10 EKG done, by ED staff, td1 td1
--- NOTE | 2025-01-25 06:34 | RAD REPORT ---
EXAMINATION: CT HEAD WITHOUT IV CONTRAST CLINICAL INDICATION: Female, 69 years old. HEADACHE TECHNIQUE: Axial CT images from the skull base to the vertex without intravenous contrast. Coronal an d sagittal reformatted images were created from the data set. One or more of the following dose reduction techniques were used: Automated exposure control, adjustment of the mA and/or kV according to patient size, and/or iterative reconstruction. Unless otherwise specified, incidental findings do not require dedicated imaging follow-up. [id number]. COMPARISON: 11/18/2024 FINDINGS: INTRACRANIAL: No acute intracranial hemorrhage. No hydrocephalus. No mass effect or midline shift. Mi ld chronic small vessel ischemic changes. Empty sella, typically a normal variant. VASCULATURE: No visualized abnormalities in the arteries or dural venous sinuses. SCALP/SKULL: No significant soft tissue or osseous abnormalities. SINUSES: The visualized paranasal sinuses are predominantly clear. No mastoid effusion. IMPRESSION: No acute intracranial abnormality. Electronically signed by: Elkin Tidwell MD 01/25/2025 06:15 AM [facility] Due to temporary technical issues with the PACS/[employer] reporting system, reports are being frida d by the in-house radiologist without review as a courtesy to ensure prompt reporting the interpreting radiologist is fully responsible for the content of the report. Transcribed Date/Time: 01/25/2025 6:34 AM
--- NOTE | 2025-01-25 06:35 | RAD REPORT ---
EXAMINATION: CTA HEAD CLINICAL INDICATION: Female, 69 years old. Headache left neck pain TECHNIQUE: Axial CT images were obtained through the head after intravenous contrast utilizing angiog raphic protocol with 3D post-processing (maximum intensity projection images, volume rendered images and/or shaded surface rendered images). One or more of the following dose reduction techniqu es were used: Automated exposure control, adjustment of the mA and/or kV according to patient size, and/or iterative reconstruction. Unless otherwise specified, incidental findings do not require dedic ated imaging follow-up. COMPARISON: No prior exam. FINDINGS: ICA: The petrous, cavernous, and supraclinoid segments of the bilateral internal carotid arteries are normal. The ophthalmic artery origins are visualized and normal. The posterior communicating arteries are patent. Calcified plaque present at the cavernous carotids. DEE: Anterior cerebral arteries are normal bilaterally. The anterior communicating artery is patent . MCA: Middle cerebral arteries are normal bilaterally. HOSPITAL UNIT COORDINATOR: Posterior cerebral arteries are normal bilaterally. Vertebrobasilar: The vertebral arteries are patent. The basilar artery is normal in appearance. 3D images confirm these findings. IMPRESSION: No occlusion, aneurysm, or hemodynamically significant stenosis identified. Electronically signed by: Elkin Tidwell MD 01/25/2025 06:21 AM [facility] Due to temporary technical issues with the PACS/[employer] reporting system, reports are being frida d by the in-house radiologist without review as a courtesy to ensure prompt reporting the interpreting radiologist is fully responsible for the content of the report. Transcribed Date/Time: 01/25/2025 6:35 AM
--- NOTE | 2025-01-25 06:36 | RAD REPORT ---
EXAM: CT neck angiography with intravenous contrast. CLINICAL DATA: 69 years Female pain at carotid surgical site. TECHNICAL DATA: Following dynamic intravenous nonionic contrast infusion, multiple axial helical CT images with multi planar reconstructions were obtained through the neck. Coronal and sagittal MIP images were performed. The CT study is performed according to ALARA (as low as reasonably achievable) or ALARA/IM AGE GENTLY, with automatic adjustment of mA and/or kV according to patient size. Performed on: 01/25/2025 at 4:45 AM COMPARISONS: No prior studies were available for comparison. FINDINGS: AORTA: The aortic arch is well imaged and demonstrates conventional branching. The origins of the left sub clavian artery, left common carotid artery and innominate artery are patent. There are mild atherosclerotic calcifications along the aortic arch. VERTEBRAL ARTERIES: The LEFT vertebral artery is normal in caliber and contour without evidence of dissection or signific ant stenosis. The left vertebral artery is slightly dominant. The RIGHT vertebral artery is normal in caliber and contour without evidence of dissection or signifi cant stenosis. CAROTID ARTERIES: There are surgical clips along the left side of the neck in the region of the carotid artery bifurcat ion. The LEFT common carotid artery is unremarkable. There is no evidence of stenosis, dissection or occlusion The carotid bulb is mildly ectatic, but is otherwise unremarkable. The LEFT internal c arotid artery is otherwise normal in caliber and contour without evidence of significant stenosis, dissection or occlusion. There is soft tissue thickening surrounding the left internal carotid artery likely related to postsurgical scarring. The LEFT external carotid artery is unremarkable. There are atherosclerotic calcifications along the cavernous left ICA. The RIGHT common carotid artery is unremarkable. There is no evidence of stenosis, dissection or occl usion. The carotid bulb demonstrates no significant plaque. The RIGHT internal carotid artery is unremarkable. There is no evidence of stenosis, dissection or occlusion. The RIGHT external carotid a rtery is unremarkable. There are atherosclerotic calcifications along the cavernous right ICA. NON-ANGIOGRAPHIC FINDINGS: The lung apices are clear. The thyroid gland is normal in size and configuration and enhances homogen eously. The visualized cervical and thoracic vertebrae are normal in height and alignment. There are mild degenerative changes of the temporomandibular joints. There is a partially impacted right ma ndibular posterior molar. 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 The paranasal sinuses are grossly clear. The mastoid air cells and middle ear cavities are clear. IMPRESSION: 1. There are postsurgical clips along the left side of the neck in the region of the carotid artery bifurcation. There is soft tissue thickening surrounding the left internal carotid artery likely related to postsurgical scarring. 2. Ectasia in the region of the left carotid bulb likely postsurgical in nature. 3. Otherwise, unremarkable CTA of the neck. There is no evidence of stenosis as per the NASCET criter ia. There is no evidence of aleksandra aneurysm, dissection or other acute vascular abnormality. Electronically signed by: Renee Moran DO 01/25/2025 06:11 AM [facility] Due to temporary technical issues with the [employer] reporting system, reports are being frida d by the in-house radiologist without review as a courtesy to ensure prompt reporting the interpreting radiologist is fully responsible for the content of the report. Transcribed Date/Time: 01/25/2025 6:36 AM
[2025-01-25 08:04] VITALS: BP 132/57; O2SAT 100
--- NOTE | 2025-01-27 16:55 | EKG ---
Test Date: 2025-01-25 Test Time: 04:07:24 [employer]rer: KEV MEASUREMENT RESULTS: Intervals: Rate: 78 AK: 142 QRSD: 78 QT: 386 QTc: 440 [place]: P: 70 AK: 142 QRS: 67 T: 80 INTERPRETIVE STATEMENTS: Normal sinus rhythm Nonspecific T wave abnormality Abnormal ECG Compared to ECG 11/18/2024 04:39:33 T-wave abnormality now present Myocardial infarct finding no longer present Electronically Signed On 01-27-25 16:47:14 DUST PULLER by Cory Jacob
== END 2025-01-25 06:47 | disposition home or self-care (01) ==
LOC: ER 03:36
DX: I16.0 Hypertensive urgency (principal); M54.2 Cervicalgia; E11.9 Type 2 diabetes mellitus without complications; I10 Essential (primary) hypertension
CPT/HCPCS: 96365; 93005 ×2; 85025; 80048; 36415; 84484; 70450; 70496; 70498; 71045; 96375; 99284; Q9967; J2405

== ENCOUNTER 2025-02-11 11:40 | Emergency (ER) | payer OTHER ==
--- OUTSIDE RECORDS SUMMARY | 2025-02-11 11:46 | XMS REPORT | Continuity of Care Document ---
Author Name Unknown Address [address] [facility] [place] [address] Organization [facility] [place] Address [address] [facility] [place] [address] Care Team Providers Care Lease Buyer Name Role Phone AURELIANO SIMS Primary Care Physician Aureliano Jonas Attending Clinician Unavailable Onesimo Urias Attending Clinician Unavailable DIVYA RUVALCABA Attending Clinician DIVYA Thibodeaux JR Attending Clinician ANISA Garcia Attending Clinician UnavailSara Woods Attending Clinician UnavailTJ Byrd Attending Clinician Unavailable EDWIN WOODS Attending Clinician SIOBHAN Dillard Attending Clinician Unavailable Siobhan Pereira MD Attending Clinician Edwin Malave Attending Clinician + [phone] Jonnie ARRIAGA Attending Clinician Unavailable Anisa Jacob MD Attending Clinician [phone] Jordon DIXON, Divya Salazar Attending Clinician + [phone] Doctor Unassigned, Kila Attending Clinician U navailable Only, Adc Test Attending Clinician Unavailable Pob, [facility] Main Attending Clinician Unavailjonathan Cam Jr., MD, Divya Ramires Attending Clinician + [phone] Veronica DIXON, Patricia Jean Baptiste Attending Clinician [phone] Yue RN, Yesenia Attending Clinician Unavailjonathan Benítez RN, Matt A Attending Clinician Unavail able Sun Elam S Attending Clinician [phone] DIVYA RUVALCABA Admitting Clinician UnaDIVYA Winkler JR Admitting Clinician UnavailANISA Whalen Admitting Clinician UnavailSara Woods Admitting Clinician UnavailSIOBHAN Kingston Admitting Clinician Unavailable Jonnie ARRIAGA Admitting Clinician Unavailable Jordon DIXON, Divya Salazar Admitting Clinician + [phone] Dorina Simental MD, Divya Ramires Admitting Clinician + [phone] Anisa Jacob MD Admitting Clinician [phone] Payers Payer Name Policy Type Policy Number Effective Date Expirati on Date Source [facility] [id number] 2021 00:00:00 [facility] AARP MCR Advantage (HMO-POS) [id number] 2020 00:00:00 [facility] MEDICARE NOVITAS [id number] 2020 00:00:00 [facility] MEDICARE NOVITAS [id number] 2020 00:00:00 [facility] HEALTH CHOICE [id number] 2017 00:00:00 Problems Condition Name Condition Details Condition Category Status Onset Date Resolution Date Last Treatment Date Treating Clinician Comments Source Peripheral arterial disease Peripheral arterial disease Disease Active 04-24 00:00: 00 Overview: Formattin g of this note might be different from the original. Added automatic ally from request for surgery [id number] [facility] Neuropathy Neuropathy Disease Active 04-24 00:00: 00 Overview: Formattin g of this note might be different from the original. Added automatic ally from request for surgery [id number] [facility] PAD (periphera l artery disease) PAD (periphera l artery disease) Disease Active 04-06 00:00: 00 [facility] Type 2 diabetes mellitus with complicati on, without long-term current use of insulin Type 2 diabetes mellitus with complicati on, without long-term current use of insulin Disease Active 08-18 00:00: 00 [facility] Dyslipidem ia Dyslipidem ia Disease Active 08-18 00:00: 00 [facility] Elevated ALT measuremen t Elevated ALT measuremen t Disease Active 08-18 00:00: 00 [facility] [id number] Current moderate episode of major depressive disorder without prior episode Problem [facility] [id number] Chronic fatigue Problem [facility] [id number] Nausea and vomiting, intractabi lity of vomiting not specified, unspecifie d vomiting type Problem [facility] Foot pain Foot pain Problem [facility] Decreased hearing Decreased hearing Problem [facility] Colon cancer screening Colon cancer screening Problem [facility] [id number] Chronic pain syndrome Problem [facility] [id number] Skin lesion Problem [facility] [id number] Anemia, unspecifie d type Problem [facility] [id number] Nonintract able headache, unspecifie d chronicity pattern, unspecifie d headache type Problem [facility] [id number] Mixed hyperlipid emia Problem [facility] [id number] Uncontroll ed type 2 diabetes mellitus without complicati on, without long-term current use of insulin Problem [facility] [id number] 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 Problem [facility] [id number] Polyarthra lgia Problem [facility] [id number] Abnormal liver function Problem [facility] [id number] Vitamin D deficiency Problem [facility] [id number] Essential hypertensi on Problem [facility] [id number] Gastroesop hageal reflux disease, esophagiti s presence not specified Problem [facility] Allergies, Adverse Reactions, Alerts Allergy Name Allergy Type Status Severity Reaction(s) Onset Date Inactive Date Treating Clinician Comments Source No Known Allergie s DA Active U 2023-12 00:00: 00 [facility] NO KNOWN ALLERGIE S Drug Class Active [facility] Social History Social Habit Start Date Stop Date Quantity Comments Source History of Tobacco Use [facility] Sex Assigned At [facility] Exposure to SARS-CoV-2 (event) 2022-06-19 00:00:00 2022-06-29 20:04:00 Not sure [facility] Tobacco use and exposure 2021-04-06 00:00:00 2021-04-06 00:00:00 Smokeless tobacco non-user [facility] Smoking Status Start Date Stop Date Source Never Smoker [facility] Medications Ordered Medication Name Filled Medication Name [...] 9-14 00:00: 00 No 1000ug [facility] Cyanocobala min Cyanocobala min 2021-0 -14 00:00: 00 No 1000ug [facility] Cyanocobala min Cyanocobala min 2021-0 -14 00:00: 00 No 1000ug [facility] Cyanocobala min Cyanocobala min 2021-0 -14 00:00: 00 No 1000ug [facility] Cyanocobala min Cyanocobala min 2021-0 -14 00:00: 00 No 1000[facility] Cyanocobala min Cyanocobala min 2021-0 -14 00:00: 00 No 1000ug [facility] Cyanocobala min Cyanocobala min 2021-0 9-14 00:00: 00 No 1000ug [facility] Cyanocobala min Cyanocobala min 2021-0 -14 00:00: 00 No 1000ug [facility] Cyanocobala min Cyanocobala min 2021-0 9-14 00:00: 00 No 1000ug [facility] Cyanocobala min Cyanocobala min 2021-0 -14 00:00: 00 No 1000[facility] Cyanocobala min Cyanocobala min 2021-0 9-14 00:00: 00 No 1000[facility] Cyanocobala min Cyanocobala min 2021-0 9-14 00:00: 00 No 1000[facility] Cyanocobala min Cyanocobala min 0 9-14 00:00: 00 No 1000ug [facility] Vitamin B12 (Cyanocobal riggs) Vitamin B12 (Cyanocobal riggs) 2021-0 8-16 00:00: 00 No 1000ug [facility] Cyanocobala min Cyanocobala min 2021-0 8-16 00:00: 00 No 1000[facility] Cyanocobala min Cyanocobala min 0 8-16 00:00: 00 No 1000[facility] Cyanocobala min Cyanocobala min 0 8-16 00:00: 00 No 1000ug [facility] Cyanocobala min Cyanocobala min 2021-0 8-16 00:00: 00 No 1000ug [facility] Cyanocobala min Cyanocobala min 0 8-16 00:00: 00 No 1000ug [facility] Cyanocobala min Cyanocobala min 0 8-16 00:00: 00 No 1000ug [facility] Cyanocobala min Cyanocobala min 0 8-16 00:00: 00 No 1000ug [facility] Cyanocobala min Cyanocobala min 2021-0 8-16 00:00: 00 No 1000ug [facility] Cyanocobala min Cyanocobala min 0 8-16 00:00: 00 No 1000ug [facility] Cyanocobala min Cyanocobala min 0 8-16 00:00: 00 No 1000ug [facility] Cyanocobala min Cyanocobala min 0 8-16 00:00: 00 No 1000ug [facility] Cyanocobala min Cyanocobala min 2021-0 8-16 00:00: 00 No 1000ug [facility] Cyanocobala min Cyanocobala min 8-16 00:00: 00 No 1000ug [facility] NaCl 0.9% (NS) bolus infusion 500 mL 06-30 01:30: 00 06-30 04:00 :00 No 500mL at 999 mL/hr, 500 mL, IV Infusion, ONCE, 1 dose, On 06/29/22 at 2029, STAT [facility] diphenhydrA MINE (BENADRYL) injection 25 mg 06-30 01:30: 00 06-30 01:48 :00 No 25mg 25 mg, Slow IV Push, ONCE, 1 dose, On 06/29/22 at 2029, STAT [facility] metoclopram ana HCl (REGLAN) injection 10 mg 06-30 01:30: 00 06-30 01:48 :00 No 10mg 10 mg, Slow IV Push, ONCE, 1 dose, On 06/29/22 at 2029, ZARI [facility] ondansetron (ZOFRAN) 4 mg tablet 06-29 00:00: 00 Yes [id number] 4mg Take 1 tablet by mouth every 8 (eight) hours as needed for Nausea and Vomiting (N/V). [facility] traMADoL (ULTRAM) 50 mg tablet 06-29 00:00: 00 Yes [id number] 50mg Take 1 tablet by mouth every 6 (six) hours as needed for Pain (scale 7-10). Indication s: acute pain [facility] butalbital- acetaminoph en-caff 50-325-40 mg tablet 06-29 00:00: 00 06-29 00:00 :00 No [id number] 1{tbl} Take 1 tablet by mouth every 6 (six) hours as needed (Headache) . [facility] Sertraline HCl 25 MG Sertraline HCl 25 [...] 10mg Take 10 mg by mouth daily. [facility] DULoxetine 30 mg CDRS 05-30 14:30: 22 Yes 1{capsu le} Take 1 capsule by mouth 2 (two) times daily. [facility] Jardiance 10 MG Jardiance 10 MG 05-15 00:00: 00 06-14 00:00 :00 No 1{table t} QD Jardiance 10 MG pioglitazon e 15 mg tablet 05-09 16:17: 08 Yes 15mg Take 15 mg by mouth daily. [facility] gabapentin 100 mg capsule 05-09 16:17: 08 Yes 100mg Take 100 mg by mouth 3 (three) times daily. [facility] lisinopriL 10 mg tablet 05-09 16:17: 08 Yes 10mg Take 10 mg by mouth daily. [facility] rosuvastati n 20 mg tablet 05-09 16:17: 08 Yes 20mg Take 20 mg by mouth at bedtime. [facility] glimepiride 4 mg tablet 05-09 16:14: 17 Yes 4mg Take 4 mg by mouth daily with breakfast. [facility] Insulin Glargine (LANTUS SOLOSTAR U-100 INSULIN) 100 unit/mL (3 mL) injection 05-09 16:14: 17 Yes inject under the skin. [facility] metFORMIN 1,000 mg tablet 05-09 16:14: 17 Yes 1000mg Take 1,000 mg by mouth 2 (two) times daily with meals. [facility] diazePAM 5 MG diazePAM 5 MG 25 00:00: 00 No 1{table t_as_ne eded} [...] Yes 200mg Take 200 mg by mouth. [facility] ergocalcife rol, vitamin d2, (VITAMIN D2) 50,000 unit capsule 2020-12 08:53: 10 Yes [id number] Take 50,000 Units by mouth weekly. [facility] metFORMIN 500 mg tablet 2020-12 08:53: 10 Yes 500mg Take 500 mg by mouth 2 (two) times daily with meals. [facility] meloxicam 7.5 mg tablet 2020-12 08:53: 10 Yes 7.5mg Take 7.5 mg by mouth daily. [facility] pioglitazon e 30 mg tablet 2020-12 08:53: 10 Yes 30mg Take 30 mg by mouth daily. [facility] Rollator walker n/s Rollator walker n/s 08-28 [...] 100 mg capsule 8-24 00:00: 00 Yes [id number] TAKE 1 CAPSULE BY MOUTH EVERY 12 HOURS FOR 7 DAYS [facility] Contour Next Test - Contour Next Test [...] (scale 7-10). Indication s: acute pain [facility] acetaminoph en-codeine 300-30 mg tablet 05-30 00:00: 00 Yes [id number] 1{tbl} Take 1 tablet by mouth every 6 (six) hours as needed for Pain (scale 7-10) for up to 18 doses. Indication s: acute pain [facility] [place] 5/16" 31G X 8 MM [place] 5/16" 31G X 8 MM 2020-0 04-26 00:00: 00 No QD [place] 5/16" 31G X 8 MM Lisinopril 10 MG Lisinopril 10 MG 04-26 00:00: 00 No 1{table t} QD Lisinopril 10 MG [place] 5/16" 31G X 8 MM [place] 5/16" 31G X 8 MM 2020-0 04-26 00:00: 00 No QD [place] 5/16" 31G X 8 MM [place] 5/16" 31G X 8 MM [place] 5/16" 31G X 8 MM 2020-0 04-26 00:00: 00 No QD [place] 5/16" 31G X 8 MM Lisinopril 10 MG Lisinopril 10 MG 2020-0 04-26 00:00: 00 No 1{table t} QD Lisinopril 10 MG Lisinopril 10 MG Lisinopril 10 MG 2020-0 04-26 00:00: 00 No 1{table t} QD Lisinopril 10 MG [place] 5/16" 31G X 8 MM [place] 5/16" 31G X 8 MM 2020-0 04-26 00:00: 00 No QD [place] 5/16" 31G X 8 MM Lisinopril 10 MG Lisinopril 10 MG 04-26 00:00: 00 No 1{table t} QD Lisinopril 10 MG [place] 5/16" 31G X 8 MM [place] 5/16" 31G X 8 MM 0 04-26 00:00: 00 No QD [place] 5/16" 31G X 8 MM aspirin 81 mg chewable tablet 04-07 00:00: 00 Yes [id number] 81mg Take 1 tablet by mouth daily. [facility] atorvastati n (LIPITOR) 20 mg tablet 08-24 00:00: 00 Yes 20mg Take 1 tablet by mouth at bedtime. [facility] Pioglitazon e HCl Pioglitazon e HCl 08-07 00:00: 00 Yes Kamala Millender 1 tablet [facility] Januvia Januvia 08-06 00:00: 00 Yes Akmala Millender 1 tablet [facility] Ondansetron HCl Ondansetron HCl 08-06 00:00: 00 Yes Kamala Millender 1 tablet as needed for nausea/vom iting [facility] Lancets Lancets 04-09 00:00: 00 Yes Kamala Garcia as directed; dispense lancets formulary to [facility] BL Blood Glucose Monitor Kit BL Blood Glucose Monitor Kit 04-09 00:00: 00 Yes Kamala Garcia As directed; DISPENSE BG MONITOR FORMULARY TO [facility] blood glucose test strip blood glucose test strip 04-09 00:00: 00 07-03 00:00 :00 No Kamala Garcia as directed; DISPENSE TESTING STRIPS FORMULARY TO [facility] Glimepiride Glimepiride Yes Kamala Millender 1 tablet [facility] Gabapentin Gabapentin Yes Kamala Millender 1 capsule [facility] Cyclobenzap rine HCl Cyclobenzap rine HCl Yes Kamala Millender 1 tablet as needed [facility] Mobic Mobic Yes Kamala Millender 1 tablet [facility] Metformin HCl Metformin HCl Yes Kamala Millender 1 tablet with a meal [facility] Aspirin 81 81 MG Aspirin 81 81 [...] HIGH DOSE OVER 65 2021-10-16 14:11:00 Completed [facility] FLUZONE HIGH DOSE OVER 65 FLUZONE HIGH DOSE OVER 65 2021-10-16 14:11:00 Completed [facility] FLUZONE HIGH DOSE OVER 65 FLUZONE HIGH DOSE OVER 65 2021-10-16 14:11:00 Completed [facility] FLUZONE HIGH DOSE OVER 65 FLUZONE HIGH DOSE OVER 65 2021-10-16 14:11:00 Completed [facility] COVID-19 Vaccine (Brett) COVID-19 Vaccine (Brett) 2021-02-19 14:31:00 Completed [facility] COVID-19 Vaccine (Brett) COVID-19 Vaccine (Brett) 2021-02-19 14:31:00 Completed [facility] COVID-19 Vaccine (Brett) COVID-19 Vaccine (Brett) 2021-02-19 14:31:00 Completed [facility] COVID-19 Vaccine (Brett) COVID-19 Vaccine (Brett) 2021-02-19 14:31:00 Completed [facility] SARS-COV-2 COVID-19 BRETT/J&J VACCINE 2021-02-19 00:00:00 Completed [facility] SARS-COV-2 COVID-19 BRETT/J&J VACCINE 2021-02-19 00:00:00 Completed [facility] Prevnar 20 (PCV20) Prevnar 20 (PCV20) Unknown Completed [facility] Fluad (aIIV4) - SDS - 0.5mL Fluad (aIIV4) - SDS - 0.5mL Unknown Completed [facility] COVID-19 Vaccine (Brett) COVID-19 Vaccine (Brett) Unknown Completed [facility] FLUZONE HIGH DOSE OVER 65 FLUZONE HIGH DOSE OVER 65 Unknown Completed [facility] Prevnar 20 (PCV20) Prevnar 20 (PCV20) Unknown Completed [facility] Fluad (aIIV4) - SDS - 0.5mL Fluad (aIIV4) - SDS - 0.5mL Unknown Completed [facility] COVID-19 Vaccine (Brett) COVID-19 Vaccine (Brett) Unknown Completed [facility] FLUZONE HIGH DOSE OVER 65 FLUZONE HIGH DOSE OVER 65 Unknown Completed [facility] Prevnar 20 (PCV20) Prevnar 20 (PCV20) Unknown Completed [facility] Fluad (aIIV4) - SDS - 0.5mL Fluad (aIIV4) - SDS - 0.5mL Unknown Completed [facility] COVID-19 Vaccine (Brett) COVID-19 Vaccine (Brett) Unknown Completed [facility] FLUZONE HIGH DOSE OVER 65 FLUZONE HIGH DOSE OVER 65 Unknown Completed [facility] Prevnar 20 (PCV20) Prevnar 20 (PCV20) Unknown Completed [facility] Fluad (aIIV4) - SDS - 0.5mL Fluad (aIIV4) - SDS - 0.5mL Unknown Completed [facility] COVID-19 Vaccine (Brett) COVID-19 Vaccine (Brett) Unknown Completed [facility] FLUZONE HIGH DOSE OVER 65 FLUZONE HIGH DOSE OVER 65 Unknown Completed [facility] Prevnar 20 (PCV20) Prevnar 20 (PCV20) Unknown Completed [facility] Fluad (aIIV4) - SDS - 0.5mL Fluad (aIIV4) - SDS - 0.5mL Unknown Completed [facility] COVID-19 Vaccine (Brett) COVID-19 Vaccine (Brett) Unknown Completed [facility] FLUZONE HIGH DOSE OVER 65 FLUZONE HIGH DOSE OVER 65 Unknown Completed [facility] Prevnar 20 (PCV20) Prevnar 20 (PCV20) Unknown Completed [facility] Fluad (aIIV4) - SDS - 0.5mL Fluad (aIIV4) - SDS - 0.5mL Unknown Completed [facility] COVID-19 Vaccine (Brett) COVID-19 Vaccine (Brett) Unknown Completed [facility] FLUZONE HIGH DOSE OVER 65 FLUZONE HIGH DOSE OVER 65 Unknown Completed [facility] Prevnar 20 (PCV20) Prevnar 20 (PCV20) Unknown Completed [facility] Fluad (aIIV4) - SDS - 0.5mL Fluad (aIIV4) - SDS - 0.5mL Unknown Completed [facility] COVID-19 Vaccine (Brett) COVID-19 Vaccine (Brett) Unknown Completed [facility] FLUZONE HIGH DOSE OVER 65 FLUZONE HIGH DOSE OVER 65 Unknown Completed [facility] Prevnar 20 (PCV20) Prevnar 20 (PCV20) Unknown Completed [facility] Fluad (aIIV4) - SDS - 0.5mL Fluad (aIIV4) - SDS - 0.5mL Unknown Completed [facility] COVID-19 Vaccine (Brett) COVID-19 Vaccine (Brett) Unknown Completed [facility] FLUZONE HIGH DOSE OVER 65 FLUZONE HIGH DOSE OVER 65 Unknown Completed [facility] Prevnar 20 (PCV20) Prevnar 20 (PCV20) Unknown Completed [facility] Fluad (aIIV4) - SDS - 0.5mL Fluad (aIIV4) - SDS - 0.5mL Unknown Completed [facility] COVID-19 Vaccine (Brett) COVID-19 Vaccine (Brett) Unknown Completed [facility] FLUZONE HIGH DOSE OVER 65 FLUZONE HIGH DOSE OVER 65 Unknown Completed [facility] Prevnar 20 (PCV20) Prevnar 20 (PCV20) Unknown Completed [facility] Fluad (aIIV4) - SDS - 0.5mL Fluad (aIIV4) - SDS - 0.5mL Unknown Completed [facility] COVID-19 Vaccine (Brett) COVID-19 Vaccine (Brett) Unknown Completed [facility] FLUZONE HIGH DOSE OVER 65 FLUZONE HIGH DOSE OVER 65 Unknown Completed [facility] Prevnar 20 (PCV20) Prevnar 20 (PCV20) Unknown Completed [facility] Fluad (aIIV4) - SDS - 0.5mL Fluad (aIIV4) - SDS - 0.5mL Unknown Completed [facility] COVID-19 Vaccine (Brett) COVID-19 Vaccine (Brett) Unknown Completed [facility] FLUZONE HIGH DOSE OVER 65 FLUZONE HIGH DOSE OVER 65 Unknown Completed [facility] Vital Signs Vital Name Observation Time Observation Value Comments Linda forbes height 2023-11-17 08:40:00 56 [in_i] Commo n [facility] weight 2023-11-17 08:40:00 105.4 [lb_av] Co mmon [facility] temperature 2023-11-17 08:40:00 98.0 [degF] Com [facility] bmi 2023-11-17 08:40:00 23.63 kg/m2 Comm on [facility] oximetry 2023-11-17 08:40:00 100 % Commo n [facility] respiratory rate 2023-11-17 08:40:00 16 /min [facility] blood pressure systolic 2023-11-17 08:40:00 148 mm[Hg] [facility] blood pressure diastolic 2023-11-17 08:40:00 72 mm[Hg] [facility] height 2023-08-25 10:00:00 56 [in_i] Commo n [facility] weight 2023-08-25 10:00:00 100.8 [lb_av] Co mmon [facility] temperature 2023-08-25 10:00:00 97.9 [degF] Com [facility] bmi 2023-08-25 10:00:00 22.6 kg/m2 Commo n [facility] oximetry 2023-08-25 10:00:00 98 % Commo n [facility] respiratory rate 2023-08-25 10:00:00 16 /min [facility] blood pressure systolic 2023-08-25 10:00:00 139 mm[Hg] [facility] blood pressure diastolic 2023-08-25 10:00:00 71 mm[Hg] [facility] height 2023-08-25 10:20:00 56 [in_i] Commo n [facility] weight 2023-08-25 10:20:00 100.8 [lb_av] Co mmon [facility] temperature 2023-08-25 10:20:00 97.9 [degF] Com [facility] bmi 2023-08-25 10:20:00 22.6 kg/m2 Commo n [facility] oximetry 2023-08-25 10:20:00 98 % Commo n [facility] respiratory rate 2023-08-25 10:20:00 16 /min [facility] blood pressure systolic 2023-08-25 10:20:00 139 mm[Hg[facility] blood pressure diastolic 2023-08-25 10:20:00 71 mm[Hg] Common [facility] height 2023-07-31 13:20:00 56 [in_i] Commo n [facility] weight 2023-07-31 13:20:00 101.2 [lb_av] Co mmon [facility] temperature 2023-07-31 13:20:00 98.2 [degF] Com [facility] bmi 2023-07-31 13:20:00 22.69 kg/m2 Comm on [facility] oximetry 2023-07-31 13:20:00 96 % Commo n [facility] respiratory rate 2023-07-31 13:20:00 18 /min [facility] blood pressure systolic 2023-07-31 13:20:00 134 mm[Hg] [facility] blood pressure diastolic 2023-07-31 13:20:00 84 mm[Hg] Common [facility] height 2022-07-16 13:00:00 56 [in_i] Commo n [facility] weight 2022-07-16 13:00:00 97.8 [lb_av] Com [facility] temperature 2022-07-16 13:00:00 98.2 [degF] Com [facility] bmi 2022-07-16 13:00:00 21.92 kg/m2 Comm on [facility] oximetry 2022-07-16 13:00:00 100 % Commo n [facility] respiratory rate 2022-07-16 13:00:00 16 /min [facility] blood pressure systolic 2022-07-16 13:00:00 138 mm[Hg] [facility] blood pressure diastolic 2022-07-16 13:00:00 88 mm[Hg] [facility] Systolic blood pressure 2022-06-30 04:00:00 149 mm[Hg] [facility] Diastolic blood pressure 2022-06-30 04:00:00 61 mm[Hg] [facility] Heart rate 2022-06-30 04:00:00 92 /min [facility] Respiratory rate 2022-06-30 04:00:00 18 /min [facility] Oxygen saturation in Arterial blood by Pulse oximetry 2022-06-30 04:00:00 98 /min [facility] Body temperature 2022-06-30 01:07:00 38.22 Sravanthi [facility] Body height 2022-06-30 01:07:00 144.8 cm [facility] Body weight 2022-06-30 01:07:00 47.174 kg [facility] BMI 2022-06-30 01:07:00 22.51 kg/m2 [facility] height 2022-06-13 13:00:00 Commo n [facility] weight 2022-06-13 13:00:00 98.6 [lb_av] Com [facility] temperature 2022-06-13 13:00:00 97.2 [degF] Com [facility] bmi 2022-06-13 13:00:00 22.1 kg/m2 Commo n [facility] oximetry 2022-06-13 13:00:00 97 % Commo n [facility] respiratory rate 2022-06-13 13:00:00 16 /min [facility] blood pressure systolic 2022-06-13 13:00:00 136 mm[Hg] [facility] blood pressure diastolic 2022-06-13 13:00:00 69 mm[Hg] [facility] Systolic blood pressure 2022-05-30 19:32:00 140 mm[Hg] [facility] Diastolic blood pressure 2022-05-30 19:32:00 75 mm[Hg] [facility] Heart rate 2022-05-30 19:30:00 71 /min [facility] Body temperature 2022-05-30 19:30:00 37.06 Sravanthi [facility] Body height 2022-05-30 19:30:00 147.3 cm [facility] Body weight 2022-05-30 19:30:00 43.999 kg [facility] BMI 2022-05-30 19:30:00 20.27 kg/m2 [facility] Oxygen saturation in Arterial blood by Pulse oximetry 2022-05-30 19:30:00 100 /min [facility] height 2022-05-15 13:00:00 57 [in_i] Commo n [facility] weight 2022-05-15 13:00:00 99.8 [lb_av] Com [facility] temperature 2022-05-15 13:00:00 98.4 [degF] Com [facility] bmi 2022-05-15 13:00:00 21.59 kg/m2 Comm on [facility] oximetry 2022-05-15 13:00:00 96 % Commo n [facility] respiratory rate 2022-05-15 13:00:00 16 /min [facility] blood pressure systolic 2022-05-15 13:00:00 164 mm[Hg] Common [facility] blood pressure diastolic 2022-05-15 13:00:00 76 mm[Hg] [facility] height 2022-01-22 15:40:00 57 [in_i] Commo n [facility] weight 2022-01-22 15:40:00 110 [lb_av] Comm on [facility] temperature 2022-01-22 15:40:00 97.2 [degF] Com mon [facility] bmi 2022-01-22 15:40:00 23.80 kg/m2 Comm on [facility] oximetry 2022-01-22 15:40:00 98 % Commo n [facility] blood pressure systolic 2022-01-22 15:40:00 138 mm[Hg] Common [facility] blood pressure diastolic 2022-01-22 15:40:00 74 mm[Hg] [facility] height 2022-01-22 16:00:00 57 [in_i] Commo n [facility] weight 2022-01-22 16:00:00 110 [lb_av] Comm on [facility] temperature 2022-01-22 16:00:00 97.2 [degF] Com [facility] bmi 2022-01-22 16:00:00 23.80 kg/m2 Comm on [facility] oximetry 2022-01-22 16:00:00 98 % Commo n [facility] blood pressure systolic 2022-01-22 16:00:00 138 mm[Hg] [facility] blood pressure diastolic 2022-01-22 16:00:00 74 mm[Hg] [facility] height 2021-10-16 13:40:00 57 [in_i] Commo n [facility] weight 2021-10-16 13:40:00 109.4 [lb_av] Co mmon [facility] temperature 2021-10-16 13:40:00 98.2 [degF] Com mon [facility] bmi 2021-10-16 13:40:00 23.67 kg/m2 Comm on [facility] oximetry 2021-10-16 13:40:00 99 % Commo n [facility] respiratory rate 2021-10-16 13:40:00 16 /min Common [facility] blood pressure systolic 2021-10-16 13:40:00 140 mm[Hg] Common [facility] blood pressure diastolic 2021-10-16 13:40:00 76 mm[Hg] Common [facility] height 2021-08-21 14:40:00 57 [in_i] Commo n [facility] weight 2021-08-21 14:40:00 112.4 [lb_av] Co mmon [facility] temperature 2021-08-21 14:40:00 97.0 [degF] Com [facility] bmi 2021-08-21 14:40:00 24.32 kg/m2 Comm on [facility] oximetry 2021-08-21 14:40:00 98 % Commo n [facility] respiratory rate 2021-08-21 14:40:00 16 /min [facility] height 2021-05-24 11:40:00 57 [in_i] Commo n [facility] weight 2021-05-24 11:40:00 106 [lb_av] Comm on [facility] temperature 2021-05-24 11:40:00 98.2 [degF] Com [facility] bmi 2021-05-24 11:40:00 22.94 kg/m2 Comm on [facility] oximetry 2021-05-24 11:40:00 97 % Commo n [facility] respiratory rate 2021-05-24 11:40:00 20 /min [facility] blood pressure systolic 2021-05-24 11:40:00 138 mm[Hg] [facility] blood pressure diastolic 2021-05-24 11:40:00 74 mm[Hg] Common [facility] Procedures Procedure Date / Time Performed Performing Clinician Source INSERTION OF MONITORING DEVICE INTO UP ART, PERC A 2024-11-15 00:00:00 [facility] MONITORING OF ARTERIAL PRESSURE, PERIPHERAL, PERC 2024-11-15 00:00:00 [facility] MONITORING OF ARTERIAL PULSE, PERIPHERAL, PERC REBEKA 2024-11-15 00:00:00 [facility] EXTIRPATION OF MATTER FROM L INT CAROTID, OPEN REBEKA 2024-11-15 00:00:00 CHAAB.01 [facility] URINALYSIS 2022-06-30 03:06:00 Siobhan Pereira [facility] CT HEAD WO CONTRAST 2022-06-30 01:47:00 Siobhan Pereira [facility] LIPASE 2022-06-30 01:32:00 Siobhan Pereira [facility] TROPONIN I 2022-06-30 01:32:00 Siobhan Pereira [facility] COMP. METABOLIC PANEL (09154) 2022-06-30 01:32:00 Siobhan Pereira [facility] CBC WITH DIFF 2022-06-30 01:32:00 Siobhan Pereira [facility] PROTHROMBIN TIME / INR 2022-06-30 01:32:00 Stanley Pereira [facility] COVID-19 (ID NOW RAPID TESTING) 2022-06-30 01:32:00 Siobhan Pereira [facility] CONSENT/REFUSAL FOR DIAGNOSIS AND TREATMENT 2022-06-30 00:48:26 Doctor Unassigned, Kila [facility] Encounters Start Date/Time End Date/Time Encounter Type Admission Type Attending Clinicians Care Facility Care Department Encounter ID Source 2024-08-24 08:41:00 Outpatient Aureliano Sims [facility] [id number] [facility] 2024-01-19 13:34:00 Outpatient Onesimo Urias [facility]LMLC STL[facility]C [id number] [facility] 2024-01-15 16:43:00 Outpatient Aureliano Sims STLMLC STLMLC [id number] [facility] 2023-08-28 09:25:00 Outpatient [place]ureliano marcano STLMLC STLMLC [id number] [facility] 2023-07-31 13:22:00 Outpatient [place]ureliano marcano STLMLC STLMLC [id number] [facility] 2022-08-12 13:25:00 Outpatient Aureliano Sims STLMLC STLMLC [id number] [facility] 2022-07-12 09:03:00 Outpatient Aureliano Sims STLMLC STLMLC [id number] [facility] 2021-12-26 14:35:38 Outpatient Aureliano Sims STLML[facility] STLMLC [id number] [facility] 2021-12-26 14:07:57 Outpatient Aureliano Sims STL[facility]C STLMLC [id number] [facility] 2021-12-26 13:58:41 Outpatient Aureliano Sims STLMLC STLMLC [id number] [facility] 2021-12-26 13:26:23 Outpatient Aureliano Sims STLMLC STLMLC [id number] [facility] 2021-12-26 13:07:52 Outpatient Aureliano Sims STLMLC STLMLC [id number] [facility] 2021-12-26 12:46:22 Outpatient Aureliano Sims STLMLC STLMLC [id number] [facility] 2021-12-26 12:45:46 Outpatient [place] marcano STLMLC STLMLC [id number] [facility] 2021-12-26 12:43:16 Outpatient Aureliano Sims STLMLC STLC [id number] [facility] 2021-12-26 12:42:46 [facility] [id number] [facility] 2021-12-26 12:41:53 Outpatient Aureliano Sims STLC STLC [id number] [facility] 2021-12-26 12:41:21 Outpatient [facility] [id number] [facility] 2021-12-26 12:25:33 [facility] [id number] [facility] 2021-10-02 03:38:45 Outpatient DIVYA PIERSON [facility] OPH [id number] [facility] 2021-10-01 02:10:08 Outpatient [facility] [id number] [facility] 2021-09-30 21:11:03 Outpatient ANISA JACOB [facility] [id number] [facility] 2021-09-30 17:40:10 Emergency [facility] [id number] [facility] 2024-11-18 09:38:00 2024-11-20 15:22:00 Inpatient MAKAYLA BrandonRicky smithnan [facility] MEDI.01 [id number] [facility] 2024-11-15 17:12:00 2024-11-16 15:24:00 Inpatient CAPO RizvisorenRickySara [facility] INTE [id number] [facility] 2024-11-11 08:00:00 2024-11-11 23:00:00 Outpatient CAPO RajaniRickySara [facility] 3DAY [id number] [facility] 2023-12-02 00:00:00 2023-12-02 00:00:00 (TEL) STLMLC STLMLC [id number] [facility] 2023-11-17 00:00:00 2023-11-17 00:00:00 OFFICE VISIT ESTAB PT LEVEL 3 STLMLC STLMLC [id number] [facility] 2023-10-30 00:00:00 2023-10-30 00:00:00 (TEL) STLMLC STLMLC [id number] [facility] 2023-08-27 00:00:00 2023-08-27 00:00:00 (TEL) STLMLC STLMLC [id number] [facility] 2023-08-26 00:00:00 2023-08-26 00:00:00 (TEL) STLMLC STLMLC [id number] [facility] 2023-08-25 00:00:00 2023-08-25 00:00:00 OFFICE VISIT ESTAB PT LEVEL 3 STLMLC STLMLC [id number] [facility] 2023-08-25 00:00:00 2023-08-25 00:00:00 (TEL) STLMLC STLMLC [id number] [facility] 2023-08-25 00:00:00 2023-08-25 00:00:00 [facility] [id number] [facility] 2023-08-07 00:00:00 2023-08-07 00:00:00 (TEL) STLMLC STLMLC [id number] [facility] 2023-07-31 00:00:00 2023-07-31 00:00:00 OFFICE VISIT ESTAB PT LEVEL 4 STLMLC STLMLC [id number] [facility] 2023-07-29 00:00:00 2023-07-29 00:00:00 (TEL) STLMLC STLMLC [id number] [facility] 2023-01-02 13:15:00 2023-01-02 13:15:00 Outpatient TJ FRANK [facility] [id number] [facility] 2022-12-24 09:00:00 2022-12-24 09:00:00 Outpatient R ANISA JACOB [facility] [id number] [facility] 2022-07-16 00:00:00 2022-07-16 00:00:00 OFFICE VISIT ESTAB PT LEVEL 4 STLMLC STLMLC [id number] [facility] 2022-07-04 00:00:00 2022-07-04 00:00:00 (TEL) STLMLC STLMLC [id number] [facility] 2022-06-29 19:58:00 2022-06-29 23:22:00 Emergency X SIOBHAN PEREIRA [facility] ERT [id number] [facility] 2022-06-29 19:58:00 2022-06-29 23:22:00 Emergency RachelsocratesmerrickSiobhan S [facility] 1.2.840.114 350.1.13.10 4.2.7.2.686 [id number] [facility] 2022-06-13 00:00:00 2022-06-13 00:00:00 OFFICE VISIT ESTAB PT LEVEL 4 STLMLC STLC [id number] [facility] 2022-05-30 15:00:00 2022-05-30 15:30:00 Office Visit Edwin Woods [facility] 1.2.840.114 350.1.13.10 4.2.7.2.686 [id number] [facility] 2022-05-30 15:00:00 2022-05-30 15:00:00 Outpatient R EDWIN WOODS [facility] [id number] [facility] 2022-05-30 13:01:05 2022-05-30 13:00:00 Outpatient R EDWIN WOODS [facility] [id number] [facility] 2022-05-15 00:00:00 2022-05-15 00:00:00 OFFICE VISIT ESTAB PT LEVEL 4 STLMLC STLC [id number] [facility] 2022-05-09 16:00:00 2022-05-09 16:47:57 Outpatient R DANILO EDWIN [facility] [id number] [facility] 2022-05-09 16:00:00 2022-05-09 16:47:57 Office Visit Edwin Woods [facility] 1.840.114 350.1.13.10 4.2.7.2.686 [id number] [facility] 2022-04-28 23:27:00 2022-04-29 03:35:00 Emergency X Jonnie ARRIAGA [facility] ERT [id number] [facility] 2022-02-05 14:00:00 2022-02-05 14:00:00 Outpatient R DANILO [facility] [id number] [facility] 2022-01-25 00:00:00 2022-01-25 00:00:00 (TEL) STLC STLC [id number] [facility] 2022-01-22 00:00:00 2022-01-22 00:00:00 OFFICE VISIT ESTAB PT LEVEL 4 STLMLC STLMLC [id number] [facility] 2022-01-22 00:00:00 2022-01-22 00:00:00 [facility] STL[facility] STLC [id number] [facility] 2022-01-10 00:00:00 2022-01-10 00:00:00 Outpatient R DANILO [facility] [id number] [facility] 2021-12-08 00:00:00 2021-12-08 00:00:00 Anisa Contreras [facility] ..840.114 350.1.13.10 4.2.7.2.686 [id number] [facility] 2021-10-16 00:00:00 2021-10-16 00:00:00 OFFICE VISIT ESTAB PT LEVEL 4 STLMLC STLMLC [id number] [facility] 2021-10-11 06:36:00 2021-10-11 08:50:00 Hospital Encounter Divya Ruvalcaba [facility] 1.114 350.1.13.10 4.2.7.2.686 [id number] [facility] 2021-10-11 06:36:00 2021-10-11 08:50:00 Outpatient R DIVYA RUVALCABA [facility] OPH [id number] [facility] 2021-10-11 08:00:00 2021-10-11 08:34:00 Surgery Divya Ruvalcaba [facility] 1.114 350.1.13.10 4.2.7.2.686 [id number] [facility] 2021-10-09 11:30:00 2021-10-09 11:30:00 Outpatient R DIVYA RUVALCABA [facility] [id number] [facility] 2021-10-08 00:00:00 2021-10-08 00:00:00 Orders Only Doctor Unassigned, Kila [facility] 1.114 350.1.13.10 4.2.7.2.686 [id number] [facility] 2021-09-13 07:19:00 2021-09-13 10:06:00 Hospital Encounter Divya Ruvalcaba [facility] 1.114 350.1.13.10 4.2.7.2.686 [id number] [facility] 2021-09-13 09:14:00 2021-09-13 09:51:00 Surgery Divya Ruvalcaba [facility] 1..114 350.1.13.10 4.2.7.2.686 [id number] [facility] 2021-09-11 15:00:00 2021-09-11 15:00:00 Outpatient Debra GEOPDIVYA [facility] [id number] [facility] 2021-09-11 13:57:39 2021-09-11 14:12:39 Laboratory Only Only, Adc Test Divya Ruvalcaba [facility] 1..114 350.1.13.10 4.2.7.2.686 [id number] [facility] 2021-09-10 00:00:00 2021-09-10 00:00:00 Orders Only Doctor Unassigned, Kila [facility] 1.114 350.1.13.10 4.2.7.2.686 [id number] [facility] 2021-09-04 16:12:51 2021-09-04 16:27:51 Cosmetic Manager Visit Pob, Adc Lab Main Divya Ruvalcaba [facility] Professio [facility] 1.114 350.1.13.10 4.2.7.2.686 [id number] [facility] 2021-09-04 16:15:00 2021-09-04 16:15:00 Outpatient DIVYA PIERSON [facility] [id number] [facility] 2021-08-21 00:00:00 2021-08-21 00:00:00 OFFICE VISIT ESTAB PT LEVEL 4 STLMLC STLMLC [id number] [facility] 2021-07-12 00:00:00 2021-07-12 00:00:00 Edwin Sinha R [facility] 1.114 350.1.13.10 4.2.7.2.686 [id number] [facility] 2021-07-10 13:10:23 2021-07-10 13:40:23 Office Visit Edwin Woods [facility] 1.114 350.1.13.10 4.2.7.2.686 [id number] [facility] 2021-07-10 13:00:00 2021-07-10 13:00:00 Outpatient R EDWIN WOODS [facility] [id number] [facility] 2021-06-19 11:57:23 2021-06-19 13:30:49 Office Visit Edwin Woods [facility] 1.114 350.1.13.10 4.2.7.2.686 [id number] [facility] 2021-06-19 00:00:00 2021-06-19 00:00:00 Outpatient R EDWIN WOODS [facility] [id number] [facility] 2021-06-13 00:00:00 2021-06-13 00:00:00 Case Management Ishmael Woodsrique [facility] 1.114 350.1.13.10 4.2.7.2.686 [id number] [facility] 2021-06-12 00:00:00 2021-06-12 00:00:00 Outpatient R EDWIN WOODS [facility] [id number] [facility] 2021-06-05 00:00:00 2021-06-05 00:00:00 Orders Only Doctor Unassigned, Kila [facility] 1.114 350.1.13.10 4.2.7.2.686 [id number] [facility] 2021-06-04 00:00:00 2021-06-04 00:00:00 Case Management Anisa Jacob [facility] 1.114 350.1.13.10 4.2.7.2.686 [id number] [facility] 2021-05-30 10:39:57 2021-05-30 11:52:22 Office Visit Edwin Woods [facility] 1.2.840.114 350.1.13.10 4.2.7.2.686 [id number] [facility] 2021-05-30 11:00:00 2021-05-30 11:00:00 Outpatient R EDWIN WOODS [facility] [id number] [facility] 2021-05-29 00:00:00 2021-05-29 00:00:00 Telephone Dorina [facility] 1.2.840.114 350.1.13.10 4.2.7.2.686 [id number] [facility] 2021-05-28 07:28:00 2021-05-28 16:00:00 Hospital Encounter Dixie [facility] 1.2.840.114 350.1.13.10 4.2.7.2.686 [id number] [facility] 2021-05-28 10:27:00 2021-05-28 12:52:00 Surgery [facility] 1.2.840.114 350.1.13.10 4.2.7.2.686 [id number] [facility] 2021-05-28 00:00:00 2021-05-28 00:00:00 Orders Only Doctor Unassigned, Kila [facility] 1.2.840.114 350.1.13.10 4.2.7.2.686 [id number] [facility] 2021-05-24 00:00:00 2021-05-24 00:00:00 OFFICE VISIT ESTAB PT LEVEL 4 STLMLC STLMLC [id number] [facility] 2021-05-17 14:18:00 2021-05-17 19:15:00 Hospital Encounter NidiaAnisa 1.2.840.1 [id number] 3.104.2.7 .3.026304 .[id number] [facility] 2021-05-17 18:49:43 2021-05-17 18:49:43 Anesthesia Event AdriánmateoPatriciaYesenia Smith 1.2.840.1 [id number] 3.104.2.7 .3.593082 .8 [id number] [facility] 2021-05-17 00:00:00 2021-05-17 00:00:00 Orders Only Doctor Unassigned, Kila [facility] 1.2.840.114 350.1.13.10 4.2.7.2.686 [id number] [facility] 2021-05-14 00:00:00 2021-05-14 00:00:00 Travel 1.2.840.1 [id number] 3.104.2.7 .3.416093 .8 1.2.840.114 350.1.13.10 4.2.7.3.698 [id number] [facility] 2021-04-26 00:00:00 2021-04-26 00:00:00 Outpatient STLMLC STLC [id number] [facility] 2021-04-24 08:26:32 2021-04-24 09:33:54 Office Visit Nidia Anisa 1.2.840.1 [id number] 3.104.2.7 .3.896521 .8 [id number] [facility] 2021-04-24 08:30:00 2021-04-24 08:30:00 Outpatient R ANISA JACOB [facility] [id number] [facility] 2021-04-24 00:00:00 2021-04-24 00:00:00 Travel 1.2.840.1 [id number] 3.104.2.7 .3.471215 .8 1.2.840.114 350.1.13.10 4.2.7.3.698 [id number] [facility] 2021-04-18 00:00:00 2021-04-18 00:00:00 Orders Only Doctor Unassigned, Kila 1.2.840.1 [id number] 3.104.2.7 .3.943892 .8 [id number] [facility] 2021-04-09 00:00:00 2021-04-09 00:00:00 Transition of Care Ankit Benítezele Helen 1.2.840.1 99119.1.1 3.104.2.7 .3.901559 .8 [id number] [facility] 2021-04-05 22:55:00 2021-04-06 19:15:00 Outpatient X ANISA JACOB [facility] [id number] [facility] 2021-04-05 22:55:00 2021-04-06 19:15:00 Emergency Sun Triplett Jennifer 1.2.840.1 [id number] 3.104.2.7 .3.035327 .8 [id number] [facility] 2021-04-05 00:00:00 2021-04-05 00:00:00 Travel 1.2.840.1 [id number] 3.104.2.7 .3.208442 .8 1.2.840.114 350.1.13.10 4.2.7.3.698 [id number] [facility] 2021-04-03 10:15:00 2021-04-03 10:15:00 Outpatient R ANISA JACOB [facility] [id number] [facility] 2021-03-30 08:57:04 2021-03-30 10:41:55 Office Visit Anisa Jacob 1.2.840.1 93884.1.1 3.104.2.7 .3.149268 .8 [id number] [facility] 2021-03-30 09:00:00 2021-03-30 09:00:00 Outpatient R ANISA JACOB [facility] [id number] [facility] 2021-03-30 00:00:00 2021-03-30 00:00:00 Orders Only Doctor Unassigned, Kila 1.2.840.1 84827.1.1 3.104.2.7 .3.749829 .8 [id number] [facility] 2021-03-30 00:00:00 2021-03-30 00:00:00 Travel 1.2.840.1 [id number] 3.104.2.7 .3.455052 .8 1.2.840.114 350.1.13.10 4.2.7.3.698 [id number] [facility] 2021-03-15 00:00:00 2021-03-15 00:00:00 Orders Only Doctor Unassigned, Kila 1.2.840.1 [id number] 3.104.2.7 .3.933913 .8 [id number] [facility] 2021-03-15 00:00:00 2021-03-15 00:00:00 Orders Only Doctor Unassigned, Kila [facility] 1.2.840.114 350.1.13.10 4.2.7.2.686 [id number] 2021-02-26 00:00:00 2021-02-26 00:00:00 Outpatient [facility]C [facility] [id number] [facility] 2021-02-19 00:00:00 2021-02-19 00:00:00 Orders Only Doctor Unassigned, Kila [facility] 1.2.840.114 350.1.13.10 4.2.7.2.686 [id number] [facility] 2021-02-19 00:00:00 2021-02-19 00:00:00 Outpatient STLMLC STLMLC [id number] [facility] 2021-02-16 00:00:00 2021-02-16 00:00:00 Outpatient STLMLC STLMLC [id number] [facility] 2021-02-15 00:00:00 2021-02-15 00:00:00 Outpatient STLMLC STLMLC [id number] [facility] 2019-01-21 10:45:00 2019-01-21 10:45:[address] [facility] [id number] [facility] 2019-01-14 13:44:00 2019-01-14 13:44:[address] [facility] [id number] [facility] 2018-08-07 11:01:00 2018-08-07 11:01:[address] [facility] [facility] [id number] [facility] 2018-08-06 15:30:00 2018-08-06 15:30:[address] [facility] [id number] [facility] 2018-07-13 23:04:00 2018-07-13 23:04:[address] [facility] [id number] [facility] 2018-07-09 10:00:00 2018-07-09 10:00:[address] [facility] [place] [facility] [id number] [facility] 2018-04-09 21:34:00 2018-04-09 21:34:[address] [facility] [place] [facility] [id number] [facility] 2018-04-09 13:15:00 2018-04-09 13:15:00 [facility] [id number] [facility] Results Test Description Test Time Test Comments Results Result Co mments Source HGB [id number] 09:59:00* Test Item Value Reference Range Interpretation Comme nts HEMOGLOBIN (test code = HGB) 7.4 g/dL 11.0-15.0 L HEMATOCRIT (test code = HCT) 23.1 % 33.0-45.0 L BASIC METABOLIC [id number] 08:18:00* Test Item Value Reference Range Interpretation [...] code = CA) 9.3 mg/dL 8.0-10.5 GLUCOSE [id number] 08:07:00* Test Item Value Reference Range Interpretation Comme nts GLUCOSE BEDSIDE (test code = GLUBED) 186 MG/DL 70-110 H Performed by cer tified cotton picker operator at [facility] CBC W/AUTO [id number] 07:51:00* Test Item Value Reference Range Interpretation [...] NRBC#) 0.00 x10 3/uL 0.0-0.1 N GLUCOSE [id number] 21:07:00* Test Item Value Reference Range Interpretation Comme nts GLUCOSE BEDSIDE (test code = GLUBED) 146 MG/DL 70-110 H Performed by cer tified cotton picker operator at [facility] GLUCOSE [id number] 17:10:00* Test Item Value Reference Range Interpretation Comme nts GLUCOSE BEDSIDE (test code = GLUBED) 193 MG/DL 70-110 H Performed by cer tified cotton picker operator at [facility] GLUCOSE [id number] 11:26:00* Test Item Value Reference Range Interpretation Comme nts GLUCOSE BEDSIDE (test code = GLUBED) 220 MG/DL 70-110 H Performed by cer tified cotton picker operator at [facility] B-TYPE NATRIURETIC [id number] 10:52:00* Test Item Value Reference Range Interpretation Comme [facility] B-TYPE NATRIURETIC PEPTIDE ( test code = BNP) 299.0 PG/ML 0-100 H COMMENTS: add to am vicwHZZW2W%2024-11-19 08:38:00* Test Item Value Reference Range Interpretation [...] = LDL) 99.0 mg/dL 0-100 N <100 KYQKVYP73 0-129 NEAR OPTIMAL/ABOVE [id number] HIGH>FN=739 VERY HIGH*Guidelines provided by the National Cholesterol EducationProgram Adult Treatment Panel III THYROID STIMULATING [id number] 08:38:00* Test Item Value Reference Range Interpretation Comme nts THYROID STIMULATING HORMONE (test code = TSH) 0.44 0.42-5.47 N Result s in rolf-International Units/mL CBC W/AUTO [id number] 07:18:00* Test Item Value Reference Range Interpretation [...] 0.00 x10 3/uL 0.0-0.1 N BASIC METABOLIC [id number] 05:11:00* Test Item Value Reference Range Interpretation [...] code = CA) 7.3 mg/dL 8.0-10.5 L [id number] 05:11:00* Test Item Value Reference Range Interpretation Comme nts MAGNESIUM (test code = MAG) 2.21 mg/dL 1.6-2.6 N GLUCOSE [id number] 21:29:00* Test Item Value Reference Range Interpretation Comme nts GLUCOSE BEDSIDE (test code = GLUBED) 178 MG/DL 70-110 H Performed by deanna siddiqui at [facility] TROP-I HIGH [id number] 16:37:00* Test Item Value Reference Range Interpretation [...] URL. These results were obtained using Siemens AteGI-View IM TnIHreagent. Results from different methodologies should not becompared to one another as quantitative results and URLs mayvary by method. TROP-I HIGH [id number] 14:08:00* Test Item Value Reference Range Interpretation [...] URL. These results were obtained using Siemens AteGI-View IM TnIHreagent. Results from different methodologies should not becompared to one another as quantitative results and URLs mayvary by method. LIPOPROTEIN [id number] 12:04:00* Test Item Value Reference Range Interpretation Comme nts LIPOPROTEIN LDL (test code = LDL) 86.0 mg/dL 0-100 N <100 YFTHRSG16 0-129 NEAR OPTIMAL/ABOVE [id number] DHUFKRNVUH211-537 HIGH>RQ=745 VERY HIGH*Guidelines provided by the National Cholesterol EducationProgram Adult Treatment Panel III TROP-I HIGH [id number] 11:45:00* Test Item Value Reference Range Interpretation Comme nts TROP-I HIGH SENSITIVITY (test code = TROPIHS) 539 ng/L 0-34 HH Critical result called to JENY BOOTH, RNby [id number] at 1145 11/18/24Nurse read back result and [...] URL. These results were obtained using Siemens Atellica IM TnIHreagent. Results from different methodologies should not becompared to one another as quantitative results and URLs mayvary by method. [id number] 13:19:00* Test Item Value Reference Range Interpretation Comments SURGICAL (test code = SR) RUN DATE: 11/17/24 [facility] PAGE 1 RUN TIME: 131 Specimen Inquiry RUN USER: INTERFACE PATIENT: STEFF SMILEY LOC: ALLI U #: [id number] AGE/SX: 68/F [facility]24[facility] DR: Sara Gerard MD : 55 BED: 1 DIS: 11/16/24 STATUS: DIS IN TLOC: SPEC #: [id number] RECD: 11/16/24-1211 STATUS: HAZEL SOTELO #: [id number] RIKI: 11/15/24- SUBM DR: Sara Gerard MD ENTERED: 11/16/24 SP TYPE: SURGICAL OTHR DR: Lloyd Mackenzie MD ORDERED: [id number], [id number], ANATOMIC SPEC COPIES TO: Sara Gerard MD [address] [place] [address] Lloyd Mackenzie MD [address] [place] [address] PROCEDURES: 28390 (11/17/24-8) 52070 (11/16/24-1211) TISSUES: A. CAROTID PLAQUE WITH DECAL [...] A, following decalcification. Technical component performed at [facility],[address] [place] [address], [place] [address] Unless gross only, the diagnosis is based upon microscopic examination.Immunohistochemistry: This test was developed and its performance characteristicsdetermined by this laboratory. It has not been approved nor does it need approvalby the [place] FDA. Appropriate positive and negative controls are reviewed and judged CONTINUED ON NEXT PAGE RUN DATE: 11/17/24 [facility] - LAB PAGE 2 RUN TIME: 1319 Specimen Inquiry RUN USER: INTERFACE SPEC #: [id number] PATIENT: STEFF SMILEY #[id number] (Continued) - GROSS DESCRIPTION (Continued) to be acceptable for performedimmunohistochemistry and/or special stains. This laboratoryis certified under the Clinical Laboratory Improvement Amendments (CLIA-88) as qualified toperform high complexity clinical laboratory testing. MICROSCOPIC DESCRIPTION A microscopic examination was performed. CLINICAL INFORMATION CAD Signed SIGNATURE ON FILE Rachel Nieto 11/17/24 1319 END OF REPORT GLUCOSE [id number] 11:47:00* Test Item Value Reference Range Interpretation Comme [facility] GLUCOSE BEDSIDE (test code = GLUBED) 132 MG/DL 70-110 H Performed by cer flakito cotton picker operator at [facility] HGB [id number] 09:33:00* Test Item Value Reference Range Interpretation Comme nts HEMOGLOBIN (test code = HGB) 7.3 g/dL 11.0-15.0 L HEMATOCRIT (test code = HCT) 22.4 % 33.0-45.0 L BASIC METABOLIC [id number] 05:23:00* Test Item Value Reference Range Interpretation [...] CA) 8.0 mg/dL 8.0-10.5 N CBC W/AUTO [id number] 05:12:00* Test Item Value Reference Range Interpretation [...] NRBC#) 0.00 x10 3/uL 0.0-0.1 N GLUCOSE [id number] 02:26:00* Test Item Value Reference Range Interpretation Comme nts GLUCOSE BEDSIDE (test code = GLUBED) 215 MG/DL 70-110 H Performed by cer tified cotton picker operator at [facility] GLUCOSE [id number] 20:42:00* Test Item Value Reference Range Interpretation Comme [facility] GLUCOSE BEDSIDE (test code = GLUBED) 222 MG/DL 70-110 H Performed by deanna fraga cotton picker operator at [facility] POC ARTERIAL BLOOD [id number] 20:28:00* Test Item Value Reference Range Interpretation Comme nts POC ARTERIAL BLOOD GAS PH (test code = POCPHA) 7.347 7.35-7.45 L POC ARTERIAL BLOOD GAS PCO2 (test code = ZFJSZK3X) 45.5 mmHg 35.0-45 H POC TCO2 ARTERIAL (test code = POCTCO2) 26.4 22-29 N POC ARTERIAL BLOOD GAS PO2 (test code = EKVXF0I) 85.9 mmHg 80-100.0 N POC HCO3 ARTERIAL (test code = FRCVUZ1A) 25.0 MMOL/L 22.0-26.0 N POC BASE EXCESS (test code = POCBEA) -0.8 MMOL/L See_Comment L [Automated messa ge] The system which generated this result transmitted reference range: 0-+/-4. The reference range was not used to interpret this result as normal/abnormal. POC O2 SATURATION (test code = POCO2S) 95.9 % 90-100 N FIO2 (test code = FIO2A) 21 % PaO2/FiO2 (test code = WIH0DLW8) 409.04 mm/Hg ABG DELIVERY (test code = ERIN) Room Air ABG TEMPERATURE (test code = TEMPA) 97.9 F ABG SITE (test code = SITEA) Art Line BASIC METABOLIC [id number] 20:28:00* Test Item Value Reference Range Interpretation [...] = POCGLU) 292 MG/DL 70-110 H HEMOGLOBIN [id number] 20:28:00* Test Item Value Reference Range Interpretation Comme nts HEMOGLOBIN ABG (test code = HGB/ABG) 8.5 G/DL 11.0-15.0 L [id number] 20:28:00* Test Item Value Reference Range Interpretation Comme nts HEMATOCRIT (test code = HCT/ABG) 25 % 33-45 L POC LACTIC [id number] 20:28:00* Test Item Value Reference Range Interpretation Comme nts POC LACTIC ACID (test code = POCLAC) 1.0 mmol/l 0.9-1.7 N BASIC METABOLIC [id number] 18:27:00* Test Item Value Reference Range Interpretation [...] = CA) 8.1 mg/dL 8.0-10.5 N HGB [id number] 18:23:00* Test Item Value Reference Range Interpretation Comme nts HEMOGLOBIN (test code = HGB) 8.3 g/dL 11.0-15.0 L HEMATOCRIT (test code = HCT) 24.6 % 33.0-45.0 L [id number] 17:07:00* Test Item Value Reference Range Interpretation Comme nts ACT-ISTAT (test code = ACTI) 279 SEC 74-137 H Performed by cer tified cotton picker operator at [facility] LIPID PROFILE (CORONARY RISK)2024-11-15 07:00:00* Test [...] = LDL) 129.0 mg/dL 0-100 H <100 DGGOZKQ20 0-129 NEAR OPTIMAL/ABOVE [id number] HIGH>GU=803 VERY HIGH*Guidelines provided by the National Cholesterol EducationProgram Adult Treatment Panel III GLUCOSE [id number] 06:24:00* Test Item Value Reference Range Interpretation Comme nts GLUCOSE BEDSIDE (test code = GLUBED) 230 MG/DL 70-110 H Performed by cer tified cotton picker operator at [facility] UA RFLX MICR CULT IF [id number] 13:14:00* Test Item Value Reference Range Interpretation [...] RiskForSepsis-no oth srcSpecimen Description: CLEAN CATCHCOMPREHENSIVE METABOLIC [id number] 13:12:00* Test Item Value Reference Range Interpretation [...] ALKP) 75 IUnit/L 20-125 N CBC W/AUTO [id number] 13:11:00* Test Item Value Reference Range Interpretation [...] NRBC#) 0.00 x10 3/uL 0.0-0.1 N PROTHROMBIN [id number] 13:02:00* Test Item Value Reference Range Interpretation [...] Infarction (to prevent recurrent infarct). THROMBOPLASTIN TIME [id number] 13:02:00* Test Item Value Reference Range Interpretation Comme nts THROMBOPLASTIN TIME PARTIAL (test code = PTT) 27.7 Seconds 25.0-39.5 N Therapeutic Rang e: 58.8 - 96.0 Seconds Effective 09/24/2024 HEMOGLOBIN [id number] 00:00:00* Test Item Value Reference Range Interpretation Comme nts A1C (test code = 4548-4) 8.3 CBC W/AUTO [id number] 00:00:00* Test Item Value Reference Range Interpretation Comme nts NUCLEATED RBCS (test code = 28857-7) 0.0 /100 WBC'S See_Comment [Automated [employer]] The system which generated this result transmitted reference range: 0.0 /100 WBC'S. The reference range was not used to interpret this result as normal/abnormal. ABSOLUTE EOSINOPHILS (test code = 03588-8) 0.12 K/UL See_Comment [Automated [employer]] The system which generated this result transmitted reference range: 0.00-0.50 K/UL. The reference range was not used to interpret this result as normal/abnormal. ABSOLUTE LYMPHOCYTES (test code = 12512-2) 2.17 K/UL See_Comment [Automated [employer]] The system which generated this result transmitted reference range: 1.00-4.00 K/UL. The reference range was not used to interpret this result as normal/abnormal. ABSOLUTE MONOCYTES (test code = 33028-2) 0.48 K/UL See_Comment [Automated [employer]] The system which generated this result transmitted reference range: 0.20-1.00 K/UL. The reference range was not used to interpret this result as normal/abnormal. ABSOLUTE NEUTROPHILS (test code = 86258-2) 5.88 K/UL See_Comment [Automated [employer]] The system which generated this result transmitted reference range: 1.50-7.50 K/UL. The reference range was not used to interpret this result as normal/abnormal. BASOPHILS (test code = 87052-1) 0.6 % EOSINOPHILS (test code = 20064-0) 1.4 % HEMATOCRIT (test code = 93114-0) 35.7 % See_Comment [Automated messa ge] The [...] result as normal/abnormal. LYMPHOCYTES (test code = 71738-4) 24.9 % MCH (test code = 11375-1) 29.8 PG See_Comment [Automated messa ge] The system which generated this result transmitted reference range: 25.0-33.0 PG. The reference range was not used to interpret this result as normal/abnormal. MCHC (test code = 70420-3) 34.2 G/DL See_Comment [Automated messa ge] The system which generated this result transmitted reference range: 31.0-36.0 G/DL. The reference range was not used to interpret this result as normal/abnormal. MCV (test code = 46508-0) 87.1 fL See_Comment [Automated messa ge] The system which generated this result transmitted reference range: 80.0-99.0 fL. The reference range was not used to interpret this result as normal/abnormal. MONOCYTES (test code = 40293-3) 5.5 % NEUTROPHILS (test code = 80842-4) 67.4 % PLATELET COUNT (test code = 89629-9) 274 K/UL See_Comment [Automated messa ge] The system which generated this result transmitted reference range: 130-400 K/UL. The reference range was not used to interpret this result as normal/abnormal. RBC (test code = 45041-0) 4.10 M/UL See_Comment [Automated messa ge] The system which generated this result transmitted reference range: 3.80-5.40 M/UL. The reference range was not used to interpret this result as normal/abnormal. RDW (test code = 47556-7) 12.9 % See_Comment [Automated messa ge] The system which generated this result transmitted reference range: 11.5-15.0 %. The reference range was not used to interpret this result as normal/abnormal. WBC (test code = 51966-3) 8.7 K/UL See_Comment [Automated messa ge] The system which generated this result transmitted reference range: 3.5-11.0 K/UL. The reference range was not used to interpret this result as normal/abnormal. HEMOGLOBIN [id number] 00:00:00* Test Item Value Reference Range Interpretation Comme nts A1C (test code = 4548-4) 14.0 HEMOGLOBIN [id number] 00:00:00* Test Item Value Reference Range Interpretation Comme nts A1C (test code = 4548-4) 10.8 HEMOGLOBIN [id number] 00:00:00* Test Item Value Reference Range Interpretation Comme nts A1C (test code = 4548-4) 8.2% HEMOGLOBIN [id number] 00:00:00* Test Item Value Reference Range Interpretation Comme nts A1C (test code = 4548-4) 8.6 DEXA, BONE DENSITY AXIAL SKELEDEXA, BONE DENSITY AXIAL ZADSM3A SCR TANYA BILAT W/CAD3D SCR TANYA BILAT W/CAD Notes Date/Time Note Provider Source 2024-11-20 08:50:00 [id number] [place] [address] PATIENT NAME: STEFF SMILEY ADMIT DATE: 11/18/24 ACCOUNT NO: [id number] ROOM NO: G.4403 AGE: 68 REPORT TYPE: eECHOCARDIOGRAM REPORT SEX: F ADMITTING PHYSICIAN:Sara Gerard MD ATTENDING PHYSICIAN:Sara Gerard MD *[place] [address] Transthoracic Echocardiogram Patient: Steff Smiley Study Date: 11/18/2024 BP: 141 / 61 URN: [id number] Location: : 1955 Age: 68 Gender: F Height: 72 in / 182.9 cm Weight: 100 lb / 45.4 kg BMI/BSA: 13.6 kg/m 2 / 1.49 m 2 *Ordering Physician: * Truman Mondragon *Interpreting Physician: * Loretta Samson MD *Warehousing Technician: * MARIAMA Norris Indications: NSTEMI. Study data: Transthoracic echocardiogram. Procedure: A transthoracic echocardiogram was performed. Images were obtained using a CAXA cardiac ultrasound machine. Image quality was good. Complete 2D, complete spectral Doppler, and color Doppler. Location: Bedside. Patient status: Inpatient. Patient room number: 2205. Study status: [facility]. Heart rate: 94 bpm. Findings Left [...] 3 mm Hg --------- PATIENT NAME: STEFF SMILEY Conclusions Summary: 1. Left ventricle: The cavity [...] 08:50 at 0850 PATIENT NAME: STEFF SMILEY [facility] 2024-11-20 08:29:00 [facility] ([facility]) Discharge Summary REPORT#:[id number] REPORT STATUS: Signed REPORT INITIALIZATION DATE:11/20/24 TIME: 828 PATIENT: STEFF SMILEY UNIT #: [id number] ROOM/BED: [place] [address] : 55 AGE: 68 SEX: F ATTEND: Sara Gerard MD ADM AUTHOR: Katerine Matamoros APRN REPT SERVICE DT/TIME: 11/20/24828 * ALL edits or amendments must be made on the electronic/computer document * PCP PCP PCP: PCP: Sara Gerard MD Discharge to: home with [facility] General Information Discharge date: 11/20/24 Discharge diagnosis: S/P CEA PVD HTN Hospital course: This is a 68-year-old female with a past medical history of hypertension, hyperlipidemia, CKD, type 2 diabetes, peripheral vascular disease who was found to have significant 80% left internal carotid artery stenosis (recently had L CEA on 11/15/24) who initally presented to [facility] for a headache, numbness in bilateral hands, and feeling weak. She was then transferred here to [facility] for continued medical care. At [facility], patient had a CT head, which showed [...] in 1 to 2 weeks Follow-up with electromedical equipment repairer primary care in 1 to 2 weeks [...] Musculoskeletal: full range of motion, normal inspection Neuro/PAROLE BOARD MEMBER: alert, oriented X 3 Skin: dry, intact, [...] % (Auto) (14.0 - 32.0 %) 22.6 [place] % (Auto) (4.8 - 9.0 %) 8.9 Eos % (Auto) (0.3 - 3.7 %) 2.8 Baso % (Auto) (0.0 - 2.0 %) 0.3 Neut # (Auto) (2.0 - 7.6 x10 3/uL) 5.73 Lymph # (Auto) (1.0 - 3.8 x10 3/uL) 1.99 [place] # (Auto) (0.1 - 0.8 x10 3/uL) [...] my knowledge. at 0835 at 1655 RPT #:[id number] END OF REPORT [facility] 2024-11-20 07:27:00 [facility] Cardiology Progress Note REPORT#:[id number] REPORT STATUS: Signed REPORT INITIALIZATION DATE:11/20/24 TIME: 726 PATIENT: STEFF SMILEY UNIT #: [id number] [place] [facility] : [place] AGE: 68 SEX: F ATTEND: [...] CEA on 11/15/24) who initally presented to [facility] for a headache, numbness in bilateral hands, and feeling weak. She was then transferred here to [facility] for continued medical care. At [facility], patient had a CT head, which showed [...] 0454 97.9 78 14 131/57 81.5 96 11/19 2356 97.9 88 15 122/63 82.4 97 11/19 [...] cardiology, neurology at 1312 at 1713 RPT #:[id number] END OF REPORT [facility] 2024-11-19 13:06:00 [facility] Neurology Progress Note REPORT#:[id number] REPORT STATUS: Signed REPORT INITIALIZATION DATE:11/19/24 TIME: 1306 PATIENT: STEFF SMILEY UNIT #: [id number] ROOM/BED: [place] [address] : 55 AGE: 68 SEX: F ATTEND: [...] % (Auto) (14.0 - 32.0 %) 23.6 [place] % (Auto) (4.8 - 9.0 %) 8.1 Eos % (Auto) (0.3 - 3.7 %) 1.8 Baso % (Auto) (0.0 - 2.0 %) 0.3 Neut # (Auto) (2.0 - 7.6 x10 3/uL) 5.72 Lymph # (Auto) (1.0 - 3.8 x10 3/uL) 2.06 [place] # (Auto) (0.1 - 0.8 x10 3/uL) [...] Exam and plan of care. Tanisha Sorensen APRN-CONTRACT MANAGEMENT SPECIALIST for Waqas Felix MD [facility]ist. Consultants: cardiology, neurology Plan discussed with: patient Waqas Felix 11/21/24 0715: Attestations Physician Attestation Reviewed findings plan: Reviewed the findings and plan as documented by Tanisha Sorensen NP at 0716 at 2233 RPT #:[id number] END OF REPORT [facility] 2024-11-19 07:57:00 [facility] ([facility]) Cardiothoracic Surgery Prog REPORT#:[id number] REPORT STATUS: Signed REPORT INITIALIZATION DATE:11/19/24 TIME: 0757 PATIENT: STEFF SMILEY UNIT #: [id number] ROOM/BED: [place] [address] : 55 AGE: 68 SEX: F ATTEND: Sara Gerard MD ADM AUTHOR: Rhianna BradfordCRITICAL ACCESS HOSPITALT SERVICE DT/TIME: 11/19/24 2911 * ALL edits or amendments must be [...] range of motion, painless range of motion Neuro/PAROLE BOARD MEMBER: alert, oriented X 3 Skin: dry, intact, [...] % (Auto) (14.0 - 32.0 %) 23.6 [place] % (Auto) (4.8 - 9.0 %) 8.1 Eos % (Auto) (0.3 - 3.7 %) 1.8 Baso % (Auto) (0.0 - 2.0 %) 0.3 Neut # (Auto) (2.0 - 7.6 x10 3/uL) 5.72 Lymph # (Auto) (1.0 - 3.8 x10 3/uL) 2.06 [place] # (Auto) (0.1 - 0.8 x10 3/uL) [...] CEA on 11/15/24) who initally presented to [facility] for a headache, numbness in bilateral hands, and feeling weak. She was then transferred here to [facility] for continued medical care. At [facility], patient had a CT head, which showed [...] nurse, interdisc care team at 0906 at 7489 RPT #:[id number] END OF REPORT [facility] 2024-11-19 07:44:00 [facility] ([facility]) Cardiology Consultation REPORT#:[id number] REPORT STATUS: Signed REPORT INITIALIZATION DATE:11/19/24 TIME: 07 PATIENT: STEFF SMILEY UNIT #: [id number] ROOM/BED: [address] : [address] AGE: 68 SEX: F ATTEND: [...] CEA on 11/15/24) who initally presented to [facility] for a headache, numbness in bilateral hands, and feeling weak. She was then transferred here to [facility] for continued medical care. At [facility], patient had a CT head, which showed [...] 97 96 11/19 0600 77 11 95 12/20 0545 75 12 146/65 93 95 11/19 [...] awake, oriented at 1019 at 0912 RPT #:[id number] END OF REPORT [facility] 2024-11-18 18:36:00 [facility] ([facility]) Critical Care Consult Note REPORT#:[id number] REPORT STATUS: Signed REPORT INITIALIZATION DATE:11/18/24 TIME: 1835 PATIENT: STEFF SMILEY UNIT #: [id number] ROOM/BED: [address] : 55 AGE: 68 SEX: F ATTEND: [...] troponin is trending down at 1840 RPT #:[id number] END OF REPORT [facility] 2024-11-18 17:38:00 [facility] ([facility]) Neurology Consultation Note REPORT#:[id number] REPORT STATUS: Signed REPORT INITIALIZATION DATE:11/18/24 TIME: 1737 PATIENT: STEFF SMILEY UNIT #: [id number] [place]OM[facility]ED: [facility] : 55 AGE: 68 SEX: F ATTEND: Sara eGrard MD ADM AUTHOR: Waqas Felix MD REPT [...] MRI according to her son done in [place]. Patient reports that the headache is still [...] 11/18 1600 O2 Delivery Room air 11/18 09 PATIENT WEIGHT: Weight (lb): Weight (oz): Weight [...] to obtain outpatient MRI at 0715 RPT #:[id number] END OF REPORT [facility] 2024-11-18 11:48:00 [facility] ([facility]) History Physical - Adult REPORT#:[id number] REPORT STATUS: Signed REPORT INITIALIZATION DATE:11/18/24 TIME: 1147 PATIENT: STEFF SMILEY UNIT #: [id number] ROOM[facility]BED: [facility] : 55 AGE: 68 SEX: F ATTEND: Sara Gerard MD ADM AUTHOR: Rhianna Bradford APRN-LICENSE DISTRIBUTOR REPT SERVICE DT/TIME: 11/18/24 1148 * ALL [...] CEA on 11/15/24) who initally presented to [facility] for a headache, numbness in bilateral hands, and feeling weak. She was then transferred here to [facility] for continued medical care. At [facility], patient had a CT head, which showed [...] Musculoskeletal: full range of motion, normal inspection Neuro/PAROLE BOARD MEMBER: alert, oriented X 3 Skin: dry, intact, [...] CEA on 11/15/24) who initally presented to [facility] for a headache, numbness in bilateral hands, and feeling weak. She was then transferred here to [facility] for continued medical care. At [facility], patient had a CT head, which showed [...] Dr. Gerard. at 1236 at 0901 RPT #:[id number] END OF REPORT [facility] 2024-11-18 09:30:00 [facility] ([facility]) EMERGENCY PROVIDER REPORT REPORT#:[id number] REPORT STATUS: Signed DATE:11/18/24 TIME: 929 PATIENT: STEFF SMILEY UNIT #: [id number] ROOM/BED: [place] [address] : 55 AGE: 68 SEX:F PCP PHYS: [...] CKD, and PVD who was transferred from [facility] for headache and generalized weakness in the [...] CKD, and PVD who was transferred from [facility] for headache and generalized weakness in the [...] Consultation 1 Referral/Consult Name Sara Gerard MD Motorcoach Operator Called Surgeon Motorcoach Operator Discussed with risk assessment consultant Requested Call Time 09 Requested Call Date 11/18/24 Call Returned Call returned Call Returned Time 09 Call Returned Date 11/18/24 Consultation 2 Referral/Consult Name ; Truman Mondragon DO Motorcoach Operator Called High Value Associate Motorcoach Operator Discussed with risk assessment consultant Requested Call Time 09 Requested Call Date 11/18/24 Call Returned Call returned Call Returned Time 09 Call Returned Date 11/18/24 Patient Discharge Departure Vital Signs/Condition Vital Signs First Documented: Result Date Time Pulse Ox 100 11/18 901 B/P 157/63 11/18 0901 B/P Mean 94 11/18 901 O2 Delivery Room air 11/18 901 Temp 98.6 11/18 901 Pulse 83 11/18 901 Resp 11/18 Last Documented: Result Date Time Pulse Ox 100 11/18 901 B/P 157/63 11/18 0901 B/P Mean 94 11/18 901 O2 Delivery Room air 11/18 901 Temp 98.6 11/18 901 Pulse 83 11/18 901 Resp 11/18 All vital signs available at the time of this entry have been reviewed. Condition Stable Clinical Impression Clinical Impression Primary Impression: NSTEMI (non-ST elevated myocardial infarction) Secondary Impressions: Headache Disposition Decision Hospitalize Hosp Physician Name Sara Gerard MD [facility] Physician Surgeon Request Time 933 Request [...] over this patient's care. at 2322 RPT #:[id number] END OF REPORT [facility] 2024-11-16 14:46:00 [facility] ([facility]) Discharge Summary REPORT#:[id number] REPORT STATUS: Signed REPORT INITIALIZATION DATE:11/16/24 TIME: 1445 PATIENT: STEFF SMILEY UNIT #: [id number] ROOM/BED: [place] [address] : 55 AGE: 68 SEX: F ATTEND: [...] Musculoskeletal: full range of motion, normal inspection Neuro/PAROLE BOARD MEMBER: alert, oriented X 3 Skin: dry, intact, [...] (Auto) (14.0 - 32.0 %) 7.6 L [place] % (Auto) (4.8 - 9.0 %) 3.9 L Eos % (Auto) (0.3 - 3.7 %) 0.0 L Baso % (Auto) (0.0 - 2.0 %) 0.1 Neut # (Auto) (2.0 - 7.6 x10 3/uL) 10.77 H Lymph # (Auto) (1.0 - 3.8 x10 3/uL) 0.93 L [place] # (Auto) (0.1 - 0.8 x10 3/uL) [...] 1-2 weeks at 1454 at 1840 RPT #:[id number] END OF REPORT [facility] 2024-11-16 10:43:00 [facility] ([facility] Critical Care Progress Note REPORT#:[id number] REPORT STATUS: Signed REPORT INITIALIZATION DATE:11/16/24 TIME: 104 PATIENT: STEFF SMILEY UNIT #: [id number] ROOM/BED: [place] [address] : 55 AGE: 68 SEX: F ATTEND: Sara Gerard MD ADM AUTHOR: Tiffani Silva MD R1 REPT SERVICE DT/TIME: 11/16/24 1043 [...] 11/16 11/15 11/15 1135 0454 151 2022 1756 Chemistry Sodium (134 - 147 mEq/L) 142 [...] Laboratory Tests 11/16 11/16 11/15 0926 0454 1757 Hematology [...] (Auto) (14.0 - 32.0 %) 7.6 L [place] % (Auto) (4.8 - 9.0 %) 3.9 L Eos % (Auto) (0.3 - 3.7 %) 0.0 L Baso % (Auto) (0.0 - 2.0 %) 0.1 Neut # (Auto) (2.0 - 7.6 x10 3/uL) 10.77 H Lymph # (Auto) (1.0 - 3.8 x10 3/uL) 0.93 L [place] # (Auto) (0.1 - 0.8 x10 3/uL) [...] DAILY 11/16 900 AC 11/16 PO 02/14 859 08 Ferrous Sulfate 325 MG DAILY 11/16 900 AC 11/16 PO 02/14 859 08 Lisinopril 10 MG DAILY 11/16 900 AC PO 03/17 0859 Dextrose/Water 125 ML [...] .STK-MED ONE 11/15 1546 DC IV Rocuronium Yermo 0 .STK-MED ONE 11/15 1546 DC IV [...] be transferred/discharged today. at 1400 at 1625 RPT #:[id number] END OF REPORT [facility] 2024-11-15 21:40:00 [facility] ([facility]) Critical Care Consult Note REPORT#:[id number] REPORT STATUS: Signed REPORT INITIALIZATION DATE:11/15/24 TIME: 2139 PATIENT: STEFF SMILEY UNIT #: [id number] ROOM/BED: [place] [address] : 55 AGE: 68 SEX: F ATTEND: [...] 20 ML .STK-MED ONE IV (DC) Rocuronium Yermo (ZEMURON) 0 .STK-MED ONE IV (DC) Sodium [...] Air FiO2 (%) 21 Laboratory Tests 11/15 175 1752 0611 0557 Chemistry Sodium (134 - [...] care time 31 minutes excluding procedures [facility]: [facility] Current Medications Current medication review: I attest that the foregoing medication list in the medical record is true, accurate, and complete to the best of my knowledge. Advanced Care Plan 65 or Older Discussed with: patient at 2148 RPT #:[id number] END OF REPORT [facility] 2024-11-15 17:28:00 [id number] [place] [address] PATIENT NAME: STEFF SMILEY ADMIT DATE: 11/15/24 ACCOUNT NO: [id number] ROOM NO: [id number] AGE: 68 REPORT TYPE: OPERATIVE REPORT SEX: F ADMITTING PHYSICIAN:Sara Gerard MD ATTENDING PHYSICIAN:Sara Gerard MD OPERATION DATE: 11/15/2024 PREOPERATIVE DIAGNOSIS: Severe left internal carotid artery stenosis. POSTOPERATIVE DIAGNOSIS: Severe left internal carotid artery stenosis. PROCEDURE: Left carotid endarterectomy. SURGEON: Treasure Gerard MD [employer] OPERATOR: Kimmy Wells ANESTHESIOLOGIST: Dr. Aaron ANESTHESIA: [...] internal carotid artery was performed using a [place] dissector and endarterectomy of the left external [...] Dictated: 11/15/2024 17:28:35 Date Transcribed: 11/15/2024 22:28:10 [facility] Receipt ID: [id number] Authenticated by Sara Gerard MD On 11/20/2024 04:39:50 PM at 0439 PATIENT NAME: STEFF SMILEY [facility] 2024-11-15 13:57:00 [facility] ([facility]) History Physical - Adult REPORT#:[id number] REPORT STATUS: Signed REPORT INITIALIZATION DATE:11/15/24 TIME: 1356 PATIENT: STEFF SMILEY UNIT #: [id number] ROOM/BED: [place] [address] : 55 AGE: 68 SEX: F ATTEND: Sara Gerard MD ADM AUTHOR: Katerine Matamoros APRN REPT SERVICE DT/TIME: 11/15/247 * ALL edits or amendments must be [...] Musculoskeletal: full range of motion, normal inspection Neuro/[employer]LE [employer]ARD MEMBER: alert, oriented X 3 Skin: dry, intact, [...] for surgery. at 1408 at 1833 RPT #:[id number] END OF REPORT [facility] 2024-11-11 12:16:00 [id number] [facility] [place] [address] PATIENT NAME: STEFF SMILEY ADMIT DATE: ACCOUNT NO: [id number] ROOM NO: AGE: 68 REPORT TYPE: eELECTROCARDIOGRAM REPORT SEX: F ADMITTING PHYSICIAN: ATTENDING PHYSICIAN:Sara Gerard MD Order: [id number] Test Reason : PREOP Test Date/Time Stamp: [...] Sara Gerard Confirmed by:JACKY WRIGHT MD at 1819 PATIENT NAME: STEFF SMILEY [facility]
[2025-02-11] MEDS ORDERED: cloNIDine HCL 0.1 MG TAB ONE (12:16)
[2025-02-11] MEDS ORDERED: ONDANSETRON 4 MG/2 ML VIAL ONE (12:16)
[2025-02-11] MEDS ORDERED: MORPHINE 4 MG/ML SYR ONE (12:16)
--- NOTE | 2025-02-11 12:34 | RAD REPORT ---
EXAMINATION: ONE VIEW CHEST XR CLINICAL INDICATION: HTN TECHNIQUE: Frontal chest projection is submitted. Examination is limited by patient positioning and t echnique. COMPARISON: 01/25/2025 FINDINGS: The lungs are well inflated and clear. The heart is normal in size. No displaced fractures identified . IMPRESSION: No acute intrathoracic abnormalities.
[2025-02-11 12:35] LABS: Absolute Basophils 0.1 K/uL (0-0.5); Absolute Eosinophils 0.1 K/uL (0-0.5); Absolute Lymphocytes (CBC) 2.4 K/uL (0.7-4.9); Absolute Monocytes 0.7 K/uL (0.1-1.3); Absolute Neutrophil 7.7 K/uL (1.8-8.0); Basophils % 0.5 % (0-1.3); Eosinophils % 1.1 % (0-4.4); Hematocrit 32.6 % (36.0-45.0); Hemoglobin 11.4 g/dL (12.0-15.0); Lymphocytes % 21.9 % (15.3-44.8); MCH 29.6 pg (27.0-35.0); MCV 84.4 fL (80-100); MPV 8.2 fL (7.6-11.3); Monocytes % 6.5 % (3.3-12.3); Nucleated Red Blood Cells % 0.1 % (0-0); Platelets 215 thou/uL (152-406); RBC Red Blood Cell Count 3.86 M/uL (3.86-4.86); Red Cell Distribution Width 13.4 % (12.1-15.2)
[2025-02-11 12:53] LABS: Anion Gap 7.6 mEq/L (5.0-15.0); Potassium 3.6 mEq/L (3.5-5.1)
[2025-02-11 12:57] LABS: Troponin High Sensitivity 1793.8 pg/mL (<58.9)
[2025-02-11] MEDS ORDERED: HYDRALAZINE HCL 20 MG/ML VIAL ONE (13:42)
--- NOTE | 2025-02-11 14:28 | RAD REPORT ---
EXAM: CT Head Brain Wo Cont HISTORY: HEADACHE COMPARISON: None TECHNIQUE: Multiple contiguous axial images were obtained for a CT of the brain without contrast. Sag ittal and coronal reformats were performed. One or more of the following dose reduction techniques were used: Automated exposure control, adjus tment of the mA and kV according to patient size, and iterative reconstruction. Unless otherwise specified, incidental findings do not require dedicated imaging follow-up. FINDINGS: No evidence of hydrocephalus, intracranial hemorrhage, or extra-axial fluid collection. The brain is normal in morphology. The calvarium is intact. The visualized paranasal sinuses and mastoid air cells are essentially clear . IMPRESSION: No evidence of acute intracranial abnormality.
--- NOTE | 2025-02-11 14:43 | RAD REPORT ---
EXAMINATION: CTA HEAD CLINICAL INDICATION: Female, 69 years old. HEADACHE TECHNIQUE: Axial CT images were obtained through the head after intravenous contrast utilizing angiog raphic protocol with 3D post-processing (maximum intensity projection images, volume rendered images and/or shaded surface rendered images). One or more of the following dose reduction technique s were used: Automated exposure control, adjustment of the mA and/or kV according to patient size, and/or iterative reconstruction. Unless otherwise specified, incidental findings do not require dedic ated imaging follow-up. COMPARISON: 01/25/2025 FINDINGS: ICA: The petrous, cavernous, and supraclinoid segments of the bilateral internal carotid arteries are normal. DEE: Anterior cerebral arteries are normal bilaterally. The anterior communicating artery is patent. MCA: Progressive multifocal narrowing along the M2 branches since the prior exam. The proximal left M CA branches show up to mild narrowing, not significantly changed. DISK GRINDER: Posterior cerebral arteries are patent bilaterally with mild multifocal narrowing along the prox imal right DISK GRINDER. Vertebrobasilar: The vertebral arteries are patent. The basilar artery is normal in appearance. 3D images confirm these findings. IMPRESSION: Multifocal narrowing most prominent along the right MCA branches. Apparent worsening since the prior angiogram, which could relate to central hemodynamic changes, but may suggest vasculitis as the underlying etiology. No large vessel occlusion.
--- NOTE | 2025-02-11 14:47 | RAD REPORT ---
EXAMINATION: CT Abdomen Pelvis W Contrast CLINICAL INDICATION: Female, 69 years old. Abd pain;Nausea / vomiting TECHNIQUE: CT abdomen and pelvis was performed, after the administration of IV contrast, as per [facility] protocol. Axial, sagittal and coronal reconstructions were obtained. One or more of the following dose reduction techniques were used: Automated exposure control, adjustment of the mA and k V according to patient size, and iterative reconstruction. Unless otherwise specified, incidental findings do not require dedicated imaging follow-up. COMPARISON: 05/12/2019 FINDINGS: LOWER CHEST: The visualized lung bases are clear. LIVER: Normal in size and contour. No focal lesion. BILIARY SYSTEM: Status post cholecystectomy. SPLEEN: Normal size. No focal lesion. PANCREAS: No mass, ductal dilation, or lu-pancreatic fluid. ADRENALS: Normal; no mass. KIDNEYS: Normal size and contour. No hydronephrosis. URINARY BLADDER: Unremarkable. GASTROINTESTINAL TRACT: No evidence of free air, significant intra-abdominal free fluid, bowel obstru ction or abscess. Mild colonic diverticulosis. APPENDIX: Normal appendix. LYMPH NODES: No lymphadenopathy. MUSCULOSKELETAL: No acute or suspicious osseous abnormality. ADDITIONAL FINDINGS: Moderate infrarenal abdominal aneurysm atherosclerotic changes.. IMPRESSION: No acute or concerning abnormalities seen in the abdomen or pelvis. Mild colonic diverticulosis without evidence of acute diverticulitis.
--- NOTE | 2025-02-11 14:51 | EDPHYS ---
Physician Documentation [facility] Name: Myriam Bryant Age: 69 yrs Sex: Female : 1955 Arrival Date: 02/11/2025 Time: 11:40 Bed 13 Private MD: ED Physician Eric Bergeron HPI: 02/11 13:03 This 69 yrs old Female presents to ER via Ambulatory with complaints of rn Headache, Nausea. 13:03 The patient presents to the emergency department with nausea. Onset: The rn symptoms/episode began/occurred this morning. Possible causes: unknown. Associated signs and symptoms: Pertinent positives: nausea. Severity of symptoms: At their worst the symptoms were moderate in the emergency department the symptoms are unchanged. The patient has experienced similar episodes in the past. Patient reports thinks her blood pressure is high, reports high blood pressure at home, associated with headache and upper abdominal discomfort with nausea. No fever or chills. No shortness of breath. Denies chest pain.. Historical: - Allergies: 11:58 No Known Allergies; hb - PMHx: 11:58 Arthritis; Diabetes - NIDDM; Hyperlipidemia; Hypertensive disorder; hb - Immunization history:: Adult Immunizations up to date. - Family history:: not pertinent. - Hospitalizations: : No recent hospitalization is reported. ROS: 13:03 Constitutional: Negative for fever, chills, and weight loss, Cardiovascular: Negative rn for chest pain, palpitations, and edema, Respiratory: Negative for shortness of breath, cough, wheezing, and pleuritic chest pain, Abdomen/GI: Negative for abdominal pain, diarrhea, and constipation, Back: Negative for injury and pain, MS/Extremity: Negative for injury and deformity, Skin: Negative for injury, rash, and discoloration, Neuro: Positive for headache, negative for focal weakness or numbness. No seizure. Exam: 13:03 Constitutional: This is a well developed, well nourished patient who is awake, alert, rn appears uncomfortable, grabbing head Head/Face: Normocephalic, atraumatic. Eyes: Pupils equal round and reactive to light, extra-ocular motions intact. Cardiovascular: Regular rate and rhythm. No pulse deficits. Respiratory: Mild tachypnea Abdomen/GI: Soft, mild epigastric tenderness. No rebound or guarding MS/ Extremity: Pulses equal, no cyanosis. Neuro: Awake and alert, GCS 15, oriented to person, place, time, and situation. Cranial nerves II-XII grossly intact. Motor strength 5/5 in all extremities. Sensory grossly intact. Cerebellar exam normal. 13:24 ECG was reviewed by the Attending Physician. rn Vital Signs: 11:57 BP 230 / 86; Pulse 85; Resp 18; Temp 97.9(O); Pulse Ox 100% on R/A; Weight 56.7 kg; hb Height 5 ft. 0 in. ; Pain 5/10; 12:15 BP 204 / 79; Pulse 20; Resp 20; Pulse Ox 100% on R/A; kj2 13:30 BP 187 / 66; Pulse 66; Resp 18; Pulse Ox 100% on R/A; kj2 14:32 BP 139 / 50; rn 15:15 BP 149 / 52; Pulse 66; Resp 20; Temp 98; Pulse Ox 100% on R/A; kj2 16:02 BP 170 / 65; Pulse 66; Resp 18; Pulse Ox 98% on R/A; kj2 17:15 BP 155 / 62; Pulse 64; Resp 18; Pulse Ox 100% on R/A; kj2 11:57 Body Mass Index 24.41 (56.70 kg, 152.4 cm) hb 11:57 Pain Scale: Adult hb MDM: 11:42 Medical Screening Exam initiated rn 13:54 ED course: Blood pressure improved to 187/61. Still denies any chest pain or dyspnea. rn Still waiting on CT and CTA results prior to giving aspirin or anticoagulation given presentation with sudden onset of headache with nausea and hypertension. ECG with nonspecific findings and mild ST depression. No ST elevation. Ultimately will organize transfer for higher level of care and we do not have Jelly Maker available for 3 more days.. 14:34 ED course: Patient markedly improved, blood pressure down to 139/50, heart rate 62, rn sleeping comfortably and denies any headache or chest pain. No dyspnea. Smiling and states feels great. CT head without acute findings. Waiting on other images prior to anticoagulation and transfer.. 14:48 Differential diagnosis: Hypertensive emergency, migraine, subarachnoid hemorrhage, rn vasculitis. Data reviewed: vital signs, nurses notes, lab test result(s), EKG, radiologic studies, CT scan, and as a result, I will admit patient. Consideration of Admission/Observation Patient was admitted/placed on observation. Escalation of care including admission/observation considered. Counseling: I had a detailed discussion with the patient and/or guardian regarding the historical points, exam findings, and any diagnostic results supporting the discharge/admit diagnosis, the presence of at least one elevated blood pressure reading (>120/80) during this emergency department visit, lab results, radiology results, the need for further work-up and treatment in the hospital. Response to treatment: the patient's symptoms have markedly improved after treatment, and as a result, I will admit patient. 15:11 ED course: Consulted with cardiology at [facility], accepts patient as rn consult. Will wait back for hospitalist call. 02/11 11:57 Order name: Basic Metabolic Panel; Complete Time: 13:02 rn 02/11 11:57 Order name: CBC with Diff; Complete Time: 13: rn 02/11 11:57 Order name: NT PRO-BNP; Complete Time: 13:02 rn 02/11 11:57 Order name: Troponin HS; Complete Time: 13: rn 02/11 15:54 Order name: PT-INR; Complete Time: 17:09 kj2 02/11 16:07 Order name: PTT, Activated Partial Thromb; Complete Time: 17:09 EDMS 02/11 11:57 Order name: CT Head Brain wo Cont; Complete Time: 14:31 rn 02/11 11:57 Order name: Head Angio CT; Complete Time: 14:47 rn 02/11 11:57 Order name: XRAY Chest (1 view); Complete Time: 13:02 rn 02/11 11:58 Order name: CT Abd/Pelvis - IV Contrast Only; Complete Time: 14:47 rn 02/11 11:57 Order name: EKG; Complete Time: 11:58 rn 02/11 11:57 Order name: Cardiac monitoring; Complete Time: 13:34 rn 02/11 11:57 Order name: EKG - Nurse/Tech; Complete Time: 13:04 rn 02/11 11:57 Order name: IV Saline Lock; Complete Time: 13:34 rn 02/11 11:57 Order name: Labs collected and sent; Complete Time: 13:34 rn 02/11 11:57 Order name: O2 Per Protocol; Complete Time: 13:35 rn 02/11 11:57 Order name: O2 Sat Monitoring; Complete Time: 13:35 rn EC:24 Rate is 64 beats/min. Rhythm is regular. QRS [place] is Normal. VT interval is normal. QRS rn interval is normal. QT interval is normal. No Q waves. T waves are Inverted in lead V3. Clinical impression: NSR w/ Non-specific ST/T Changes. Interpreted by me. Reviewed by me. Administered Medications: 12:33 Drug: Ondansetron IVP 4 mg IVP once; over 2 minutes Route: IVP; Site: left antecubital; kj2 17:15 Follow up: Response: No adverse reaction kj2 12:33 Drug: cloNIDine PO 0.2 mg PO once Route: PO; kj2 17:15 Follow up: Response: No adverse reaction kj2 12:34 Not Given (Patient Refused): morphineor iv 4 mg IVP once over 4 mins kj2 13:40 Drug: hydrALAZINE IVP 5 mg IVP once Route: IVP; Site: left antecubital; kj2 17:29 Follow up: Response: No adverse reaction kj2 16:33 Drug: Heparin ([place]-Bolus No thrombolytic) - HEParin IVP 60 units/kg IVP once; Max 5000 ld1 units {Co-Signature: kj2 (Kayy Ward RN).} Route: IVP; Site: left antecubital; 17:15 Follow up: Response: No adverse reaction kj2 16:34 Drug: Heparin ([place] Drip) 12 units/kg/hr - ([place] [address] units, D5W IV 500 ml) IV at ld1 calculated rate Per protocol; Max initial rate 1000 units/hr {Co-Signature: kj2 (Kayy Ward RN).} Route: IV; Rate: calculated rate; Site: left antecubital; 17:15 Follow up: IV Status: Infusion continued upon transfer kj2 16:40 Drug: Aspirin PO Chewable Tablet 324 mg PO once; 81 mg tablets x 4 Route: PO; kj2 17:15 Follow up: Response: No adverse reaction kj2 Disposition Summary: 02/11/25 14:50 Transfer Ordered Notes: Transfer Location: [facility] rn Reason: Higher level of care rn Condition: Stable rn Problem: new rn Symptoms: have improved rn Accepting Physician: (02/11/25 17:30) kj2 Diagnosis - Hypertensive Emergency rn - Subsequent non-ST elevation (NSTEMI) myocardial infarction rn Forms: - Medication Reconciliation Form rn - 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 Total time: 35 rn minutes Signatures: Dispatcher [employer] EDMS Eric Bergeron MD MD rn Baxter, Heather RN Tamra Higgins RN RN [email or web address] Kayy Ward RN RN kj2 Kayy Ward RN kj2 Corrections: (The following items were deleted from the chart) 16:06 15:37 PTT, ACTIVATED+COAG.LAB.BRZ ordered. EDME EDMS 17:30 14:50 DrGerald rn kj2
--- NOTE | 2025-02-11 14:51 | ER ---
Nurse's Notes [facility] Name: Myriam Bryant Age: 69 yrs Sex: Female : 1955 Arrival Date: 02/11/2025 Time: 11:40 Bed 13 Private MD: Diagnosis: Hypertensive Emergency ;Subsequent non-ST elevation (NSTEMI) myocardial infarction Presentation: 02/11 11:57 Chief complaint: Headache and nausea x 2 days. Coronavirus screen: At this time, the hb client does not indicate any symptoms associated with coronavirus-19. Ebola Screen: No symptoms or risks identified at this time. Initial Sepsis Screen: Does the patient meet any 2 criteria? No. Patient's initial sepsis screen is negative. Does the patient have a suspected source of infection? No. Patient's initial sepsis screen is negative. Risk Assessment: Do you want to hurt yourself or someone else? Patient reports no desire to harm self or others. Onset of symptoms was February 10, 2025. 11:57 Method Of Arrival: Ambulatory hb 11:57 Acuity: VALDEMAR 3 hb Historical: - Allergies: 11:58 No Known Allergies; hb - PMHx: 11:58 Arthritis; Diabetes - NIDDM; Hyperlipidemia; Hypertensive disorder; hb - Immunization history:: Adult Immunizations up to date. - Family history:: not pertinent. - Hospitalizations: : No recent hospitalization is reported. Screenin:15 [facility] ED Fall Risk Assessment (Adult) History of falling in the last 3 months, kj2 including since admission Confusion or Disorientation No (0 pts) Intoxicated or Sedated No (0 pts) Impaired Gait No (0 pts) Mobility Assist Device Used No (0 pt) Altered Elimination No (0 pt) Score/Fall Risk Level 0 - 2 = Low Risk Maintained a safe environment, Educated pt \T\ family on fall prevention, incl call for assistance when getting out of bed, Assessed \T\ reinforced patient's understanding of fall precautions, Provided non-skid footwear, Hourly rounding (assess needs \T\ fall precautionary measures) done, Used ambulatory aids as needed (educated on \T\ assisted with), Used gait belt as appropriate. Abuse screen: Denies threats or abuse. Denies injuries from another. Nutritional screening: No deficits noted. Tuberculosis screening: No symptoms or risk factors identified. Assessment: 12:15 General: Appears in no apparent distress. Behavior is calm, cooperative. Pain: kj2 Complains of pain in headache Pain currently is 6 out of 10 on a pain scale. Neuro: Level of Consciousness is awake, alert, obeys commands, Oriented to person, place, time, situation. Cardiovascular: GI: Abdomen is flat, Reports nausea. : No signs and/or symptoms were reported regarding the genitourinary system. 13:30 Reassessment: Patient appears in no apparent distress at this time. Patient and/or kj2 family updated on plan of care and expected duration. Pain level reassessed. Patient is alert, oriented x 3, equal unlabored respirations, skin warm/dry/pink. 14:15 Reassessment: Patient appears in no apparent distress at this time. Patient and/or kj2 family updated on plan of care and expected duration. Pain level reassessed. Patient is alert, oriented x 3, equal unlabored respirations, skin warm/dry/pink. 15:15 Reassessment: Patient appears in no apparent distress at this time. Patient and/or kj2 family updated on plan of care and expected duration. Pain level reassessed. Patient is alert, oriented x 3, equal unlabored respirations, skin warm/dry/pink. 16:02 Reassessment: Patient appears in no apparent distress at this time. Patient and/or kj2 family updated on plan of care and expected duration. Pain level reassessed. Patient is alert, oriented x 3, equal unlabored respirations, skin warm/dry/pink. 17:15 Reassessment: Patient appears in no apparent distress at this time. Patient and/or kj2 family updated on plan of care and expected duration. Pain level reassessed. Patient is alert, oriented x 3, equal unlabored respirations, skin warm/dry/pink. Vital Signs: 11:57 BP 230 / 86; Pulse 85; Resp 18; Temp 97.9(O); Pulse Ox 100% on R/A; Weight 56.7 kg; hb Height 5 ft. 0 in. ; Pain 5/10; 12:15 BP 204 / 79; Pulse 20; Resp 20; Pulse Ox 100% on R/A; kj2 13:30 BP 187 / 66; Pulse 66; Resp 18; Pulse Ox 100% on R/A; kj2 14:32 BP 139 / 50; rn 15:15 BP 149 / 52; Pulse 66; Resp 20; Temp 98; Pulse Ox 100% on R/A; kj2 16:02 BP 170 / 65; Pulse 66; Resp 18; Pulse Ox 98% on R/A; kj2 17:15 BP 155 / 62; Pulse 64; Resp 18; Pulse Ox 100% on R/A; kj2 11:57 Body Mass Index 24.41 (56.70 kg, 152.4 cm) hb 11:57 Pain Scale: Adult hb ED Course: 11:41 Patient arrived in ED. mr 11:42 Eric Bergeron MD is Attending Physician. rn 11:58 Triage completed. hb 11:58 Arm band placed on. hb 12:15 Patient has correct armband on for positive identification. Bed in low position. Call kj2 light in reach. Adult w/ patient. Provided Education on: call light. 12:15 Missed attempt(s): 20 gauge in right forearm. antecubital area. rk3 12:15 Inserted saline lock: 20 gauge in left antecubital area, using aseptic technique. Blood kj2 collected. Flushed with 10 mL NS. 12:23 XRAY Chest (1 view) In Process Unspecified. EDMS 12:30 Kayy Ward, RN is Primary Nurse. kj2 13:15 CT Head Brain wo Cont In Process Unspecified. EDMS 13:[address] In Process Unspecified. EDMS 13:15 CT Abd/Pelvis - IV Contrast Only In Process Unspecified. EDMS 14:50 [facility] called to initiate transfer, spoke with Bettie. ty 15:08 Lus2Spu. ty 15:25 2nd Buh3Jxj. ty 16:39 [facility] CALLED FOR TRANSPORT. ty Administered Medications: 12:33 Drug: Ondansetron IVP 4 mg IVP once; over 2 minutes Route: IVP; Site: left antecubital; kj2 17:15 Follow up: Response: No adverse reaction kj2 12:33 Drug: cloNIDine PO 0.2 mg PO once Route: PO; kj2 17:15 Follow up: Response: No adverse reaction kj2 12:34 Not Given (Patient Refused): morphineor iv 4 mg IVP once over 4 mins kj2 13:40 Drug: hydrALAZINE IVP 5 mg IVP once Route: IVP; Site: left antecubital; kj2 17:29 Follow up: Response: No adverse reaction kj2 16:33 Drug: Heparin (ID-Bolus No thrombolytic) - HEParin IVP 60 units/kg IVP once; Max 5000 ld1 units {Co-Signature: rei (Kayy Ward RN).} Route: IVP; Site: left antecubital; 17:15 Follow up: Response: No adverse reaction kj2 16:34 Drug: Heparin (ID Drip) 12 units/kg/hr - ([place] [address] units, D5W IV 500 ml) IV at ld1 calculated rate Per protocol; Max initial rate 1000 units/hr {Co-Signature: lissette2 (Kayy Ward RN).} Route: IV; Rate: calculated rate; Site: left antecubital; 17:15 Follow up: IV Status: Infusion continued upon transfer kj2 16:40 Drug: Aspirin PO Chewable Tablet 324 mg PO once; 81 mg tablets x 4 Route: PO; kj2 17:15 Follow up: Response: No adverse reaction kj2 Medication: 16:02 VIS not applicable for this client. kj2 Outcome: 14:50 ER care complete, transfer ordered by . rn 17:30 Patient left the ED. kj2 Signatures: Dispatcher [employer] EDMS Belkis Gale, Reg Reg mr Eric Bergeron MD MD rn Baxter, Heather, RN Tamra Higgins RN RN ld1 Mario Sanchez Krystal, RN RN kj2 Latoya Murcia rk3 Kayy Ward RN kj2 Corrections: (The following items were deleted from the chart) 14:56 14:50 [facility] called to initiate transfer, spoke with marivel orta
[2025-02-11] MEDS ORDERED: ASPIRIN 81 MG CHEWABLE TABLET ONE (15:47)
[2025-02-11] MEDS ORDERED: HEPARIN 5000 UNIT/ML 1 ML VIAL ONE (15:47)
[2025-02-11] MEDS ORDERED: HEPARIN/D5W 25,000 UNIT/500 ML BAG IV ONE (15:48)
[2025-02-11 16:23] LABS: PT Prothrombin Time 11.6 SECONDS (10-13.0); Protime INR 1.02
[2025-02-11 17:51] VITALS: TEMP 98
[2025-02-11 17:53] VITALS: BP 155/62; O2SAT 100
== END 2025-02-11 17:30 | disposition short-term general hospital (02) ==
LOC: ER 11:40
DX: I16.1 Hypertensive emergency (principal); I22.2 Subsequent non-ST elevation (NSTEMI) myocardial infarction; I21.9 Acute myocardial infarction, unspecified; I10 Essential (primary) hypertension
CPT/HCPCS: 96365; 85025; 80048; 36415; 85610; 85730; 84484; 83880; 70450; 70496; 74177; 71045; 96375; 99285; Q9967; J1644; J0360; J2405; 93005

== ENCOUNTER 2025-07-08 13:59 | Observation (INO) | payer OTHER ==
[2025-07-08] MEDS ORDERED: ASPIRIN 81 MG CHEWABLE TABLET ONE (14:17)
--- NOTE | 2025-07-08 14:18 | RAD REPORT ---
EXAMINATION: ONE VIEW CHEST XR CLINICAL INDICATION: CHEST PAIN TECHNIQUE: Frontal chest projection is submitted. Examination is limited by patient positioning and t echnique. COMPARISON: 06/23/2025 FINDINGS: The lungs are well inflated and clear. The heart is normal in size. No displaced fractures identified . Sternotomy wires. IMPRESSION: No acute intrathoracic abnormalities.
[2025-07-08 14:24] LABS: Absolute Lymphocytes (CBC) 2.3 K/uL (0.7-4.9); Hematocrit 29.4 % (36.0-45.0); Hemoglobin 10.2 g/dL (12.0-15.0); MCH 30.2 pg (27.0-35.0); MCHC 34.8 g/dL (32.0-36.0); MCV 86.8 fL (80-100); MPV 8.1 fL (7.6-11.3); Nucleated RBC Absolute Count 0.0 (0-0); Nucleated Red Blood Cells % 0.1 % (0-0); RBC Red Blood Cell Count 3.39 M/uL (3.86-4.86); White Blood Count 9.30 thou/uL (4.3-10.9)
[2025-07-08 15:10] LABS: Anion Gap 10.3 mEq/L (5.0-15.0); BUN Blood Urea Nitrogen 34.0 mg/dL (7-18); Glucose Level 324.0 mg/dL (74-106); NT PRO-BNP 1354.0 pg/mL (<125); Troponin High Sensitivity 13.5 pg/mL (<58.9)
[2025-07-08 15:12] LABS: Magnesium 1.7 mg/dL (1.6-2.4); Potassium 4.3 mEq/L (3.5-5.1)
--- NOTE | 2025-07-08 15:25 | ER ---
Nurse's Notes [facility] Name: Myriam Bryant Age: 69 yrs Sex: Female : 1955 Arrival Date: 07/08/2025 Time: 13:59 Bed 19 Private MD: Diagnosis: Chest pain, unspecified Presentation: 07/08 14:06 Chief complaint: Patient states: SUBSTERNAL CP AND WEAKNESS. JANUARY CABG, OCTOBER bp CAROTID ENDARTERECTOMY. Coronavirus screen: At this time, the client does not indicate any symptoms associated with coronavirus-19. Ebola Screen: No symptoms or risks identified at this time. Initial Sepsis Screen: Does the patient meet any 2 criteria? No. Patient's initial sepsis screen is negative. Does the patient have a suspected source of infection? No. Patient's initial sepsis screen is negative. Risk Assessment: Do you want to hurt yourself or someone else? Patient reports no desire to harm self or others. Onset of symptoms is unknown. 14:06 Method Of Arrival: Ambulatory bp 14:06 Acuity: VALDEMAR 2 bp Triage Assessment: 14:07 General: Appears in no apparent distress. uncomfortable, Behavior is cooperative, bp appropriate for age, anxious. Pain: Complains of pain in chest. EENT: No deficits noted. Neuro: No deficits noted. Cardiovascular: Reports chest pain, Rhythm is sinus rhythm. Respiratory: No deficits noted. GI: No signs and/or symptoms were reported involving the gastrointestinal system. : No signs and/or symptoms were reported regarding the genitourinary system. Derm: No deficits noted. Musculoskeletal: No deficits noted. Historical: - Allergies: 14:07 No Known Allergies; bp - PMHx: 14:07 Hypertensive disorder; Hyperlipidemia; Diabetes - NIDDM; Arthritis; bp - PSHx: 14:07 Coronary artery bypass graft; bp - Immunization history:: Adult Immunizations up to date. - Infectious Disease History:: Denies. - Social history:: Smoking status: Patient denies any tobacco usage or history of. Screenin:05 [facility] ED Fall Risk Assessment (Adult) History of falling in the last 3 months, me1 including since admission No falls in past 3 months (0 pts) Confusion or Disorientation No (0 pts) Intoxicated or Sedated No (0 pts) Impaired Gait No (0 pts) Mobility Assist Device Used No (0 pt) Altered Elimination No (0 pt) Score/Fall Risk Level 0 - 2 = Low Risk Maintained a safe environment, Provided non-skid footwear, Hourly rounding (assess needs \T\ fall precautionary measures) done. Abuse screen: Denies threats or abuse. Nutritional screening: No deficits noted. Tuberculosis screening: No symptoms or risk factors identified. Assessment: 14:05 General: Appears uncomfortable, well groomed, well developed, well nourished, Behavior me1 is calm, cooperative, appropriate for age, Reports SUBSTERNAL CP AND WEAKNESS. JANUARY CABG, OCTOBER CAROTID ENDARTERECTOMY. Pain: Complains of pain in chest Pain does not radiate. Pain currently is 6 out of 10 on a pain scale. Quality of pain is described as pressure, Pain began gradually, Is continuous. Neuro: Level of Consciousness is awake, alert, obeys commands, Oriented to person, place, time, situation, Appropriate for age. Cardiovascular: Reports chest pain, Patient's skin is warm and dry. Respiratory: Airway is patent Respiratory effort is even, unlabored, Respiratory pattern is regular, symmetrical. GI: No signs and/or symptoms were reported involving the gastrointestinal system. : No signs and/or symptoms were reported regarding the genitourinary system. EENT: No signs and/or symptoms were reported regarding the EENT system. Derm: Skin is intact, is healthy with good turgor, Skin is pink, warm \T\ dry. Musculoskeletal: Circulation, motion, and sensation intact. Range of motion: intact in all extremities, Reports generalized weakness and fatigue for the past few days. Vital Signs: 14:00 BP 212 / 72; Pulse 82; Resp 18; Pulse Ox 100% ; me1 14:06 BP 212 / 72; Pulse 80; Resp 16; Temp 98; Pulse Ox 100% ; bp 14:28 BP 204 / 68; kb 15:00 BP 197 / 64; Pulse 77; Resp 18; Pulse Ox 99% ; me1 15:06 BP 197 / 64; kb 15:55 BP 203 / 68; kb 16:00 BP 205 / 72; Pulse 78; Resp 17; Pulse Ox 100% ; me1 17:00 BP 193 / 65; Pulse 75; Resp 14; Pulse Ox 100% ; me1 ED Course: 14:00 Patient arrived in ED. im 14:02 [facility] Gibbons [facility]C [facility] kb 14:02 Sharan Vance MD is Attending Physician. kb 14:05 Patient has correct armband on for positive identification. Bed in low position. Call me1 light in reach. Side rails up X2. Provided Education on: POC. Verbalized understanding.. Client placed on continuous cardiac and pulse oximetry monitoring. NIBP monitoring applied. 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 Pulse ox on. NIBP on. 14:05 No provider procedures requiring assistance completed. Patient maintains SpO2 me1 saturation greater than 95% on room air. 14:07 Triage completed. bp 14:07 Georgette Orozco, KASH is Primary Nurse. me1 14:07 Arm band placed on. bp 14:13 XRAY Chest (1 view) In Process Unspecified. EDMS 14:14 Initial lab(s) drawn, by me, sent to lab. Inserted saline lock: 22 gauge in right me1 antecubital area, using aseptic technique. 14:27 EKG done, by ED staff, reviewed by Esperanza HAGAN. me1 15:25 Tiara White MD is Hospitalizing Provider. kb 18:03 Thorax Wo Con In Process Unspecified. EDMS 18:08 Patient admitted, IV remains in place. me1 Administered Medications: 14:26 Drug: Aspirin PO Chewable Tablet 324 mg PO once; 81 mg tablets x 4 Route: PO; me1 15:49 Drug: morphine IVP or IV 2 mg IVP once over 4 mins Route: IVP; Infused Over: 4 mins; me1 Site: right antecubital; 16:04 Follow up: Response: No adverse reaction; Pain is decreased me1 15:49 Drug: Ondansetron IVP 4 mg IVP once; over 2 minutes Route: IVP; Site: right antecubital;me1 16:04 Follow up: Response: No adverse reaction; Nausea is decreased me1 15:49 Drug: NS 0.9% IV 500 ml 500 ml IV at 1 bolus once; to be given as a bolus over 30 me1 minutes Volume: 500 ml; Route: IV; Rate: 1 bolus; Site: right antecubital; 16:10 Follow up: Response: No adverse reaction; IV Status: Completed infusion; IV Intake: me1 500ml 16:10 Drug: Lisinopril PO 20 mg PO once Route: PO; me1 18:43 Follow up: Response: No adverse reaction; Blood pressure is lowered me1 Medication: 14:05 VIS not applicable for this client. me1 Intake: 16:10 IV: 500ml; Total: 500ml. me1 Outcome: 15:25 Decision to Hospitalize by Provider. kb 18:08 Admitted to Tele accompanied by tech, via wheelchair, room 430, with chart, Report me1 called to tubed up, receipt confirmed with Howard 18:08 Condition: stable 18:08 Instructed on the need for admit, 18:43 Patient left the ED. aa5 Signatures: Dispatcher [employer] EDMS Esperanza Gibbons, PULMONOLOGIST-C PULMONOLOGIST-CkDenise Ruiz, RN RN aa5 Vernon Pop, RN RN bp Josee Eli Michelle, RN RN me1 Corrections: (The following items were deleted from the chart) 14:08 14:06 Chief complaint: Patient states: SUBSTERNAL CP AND WEAKNESS. JANUARY CABG, OCTOBER me1 CAROTID ENDARTERECTOMY bp 15:20 14:06 Chief complaint: Patient states: SUBSTERNAL CP AND WEAKNESS. JANUARY CABG, OCTOBER me1 CAROTID ENDARTERECTOMY me1
--- NOTE | 2025-07-08 15:25 | EDPHYS ---
Physician Documentation [facility] Name: Myriam Bryant Age: 69 yrs Sex: Female : 1955 Arrival Date: 07/08/2025 Time: 13:59 Bed 19 Private MD: ED Physician Sharan Vance HPI: 07/08 14:07 This 69 yrs old Female presents to ER via Ambulatory with complaints of Chest kb Pain. 14:07 Patient is a 69-year-old female who presents for 3-day history of substernal chest kb pain. Denies shortness of breath, nausea, vomiting. Reports generalized weakness as well. Patient had a carotid enterectomy in October 2024 and a CABG in January 2025. Family states that patient has been more active, doing chores and has been complaining of pain with movement and palpation to surgical site. States patient thought she could come get checked out and then go home in a couple of hours.. Historical: - Allergies: 14:07 No Known Allergies; bp - PMHx: 14:07 Hypertensive disorder; Hyperlipidemia; Diabetes - NIDDM; Arthritis; bp - PSHx: 14:07 Coronary artery bypass graft; bp - Immunization history:: Adult Immunizations up to date. - Infectious Disease History:: Denies. - Social history:: Smoking status: Patient denies any tobacco usage or history of. ROS: 14:06 Constitutional: As per HPI kb Exam: 14:06 Constitutional: This is a well developed, well nourished patient who is awake, alert, kb and in no acute distress. Head/Face: Normocephalic, atraumatic. ENT: Moist Mucous membranes Cardiovascular: Regular rate Respiratory: Respirations even and unlabored. No increased work of breathing. Talking in full sentences Skin: Warm, dry with normal turgor. Normal color. MS/ Extremity: Pulses equal, no cyanosis. Neurovascular intact. Full, normal range of motion. Neuro: Awake and alert, GCS 15, oriented to person, place, time, and situation. 14:22 Chest/axilla: Surgical incision that is well-healed with no redness, swelling, warmth kb or drainage. 14:26 ECG was reviewed by the Attending Physician. kb Vital Signs: 14:00 BP 212 / 72; Pulse 82; Resp 18; Pulse Ox 100% ; me1 14:06 BP 212 / 72; Pulse 80; Resp 16; Temp 98; Pulse Ox 100% ; bp 14:28 BP 204 / 68; kb 15:00 BP 197 / 64; Pulse 77; Resp 18; Pulse Ox 99% ; me1 15:06 BP 197 / 64; kb 15:55 BP 203 / 68; kb 16:00 BP 205 / 72; Pulse 78; Resp 17; Pulse Ox 100% ; me1 17:00 BP 193 / 65; Pulse 75; Resp 14; Pulse Ox 100% ; me1 MDM: 14:02 Medical Screening Exam initiated 14:08 ED course: Patient is a 69-year-old female who presents for chest pain and weakness for 3 days. Tenderness to palpation to surgical incision on chest. Will obtain CBC, BMP, BNP, EKG, chest x-ray for evaluation. Patient is hypertensive at this time but reports blood pressure of 124 systolic this morning. Will monitor blood pressure and treat as needed. Plan is to admit patient after initial evaluation and diagnostics.. 14:22 Differential diagnosis: abnormal EKG, acute myocardial infarction, chest wall pain. The patient was given aspirin in the Emergency Department. Data reviewed: vital signs, nurses notes. Historians other than the Patient: Family Member: daughter. 14:27 Independent interpretation of the following test(s) in the Emergency Department X-Ray: My interpretation is No pneumothorax on chest x-ray. 14:30 Management of patient was discussed with the following: Called [facility] pharmacy in [facility] to obtain home medication list. Patient is currently prescribed metoprolol 25 mg twice daily, rosuvastatin 10 mg p.o. daily, lisinopril 20 mg p.o. daily, glimepiride 4 mg twice a day.. 15:24 Consideration of Admission/Observation Patient was admitted/placed on observation. Escalation of care including admission/observation considered. Management of patient was discussed with the following: Hospitalist: Hospitalist team, pt accepted for admission under Dr White. Legal Receptionist: Dr Jacob accepts pt for consult. Counseling: I had a detailed discussion with the patient and/or guardian regarding the historical points, exam findings, and any diagnostic results supporting the discharge/admit diagnosis, lab results, radiology results, the need for further work-up and treatment in the hospital. 15:25 ED course: HEART score 5. 15:55 ED course: Pt denies taking home lisinopril this morning. Ordered at this time. . kb 07/08 14:06 Order name: Basic Metabolic Panel; Complete Time: 15:14 kb 07/08 14:06 Order name: CBC with Diff; Complete Time: 14:49 kb 07/08 14:06 Order name: Magnesium; Complete Time: 15:14 kb 07/08 14:06 Order name: NT PRO-BNP; Complete Time: 15:14 kb 07/08 14:06 Order name: Troponin HS; Complete Time: 15:14 kb 07/08 17:26 Order name: Basic Metabolic Panel EDMS 07/08 17:26 Order name: Basic Metabolic Panel EDMS 07/08 17:26 Order name: CBC with Automated Diff EDMS 07/08 17:26 Order name: CBC with Automated Diff EDMS 07/08 17:26 Order name: Hemoglobin A1c EDMS 07/08 17:26 Order name: Hemoglobin A1c EDMS 07/08 17:26 Order name: Lipid Profile EDMS 07/08 17:26 Order name: Lipid Profile EDMS 07/08 17:26 Order name: Troponin High Sensitivity EDMS 07/08 17:26 Order name: Troponin High Sensitivity EDMS 07/08 17:26 Order name: Troponin High Sensitivity EDMS 07/08 14:06 Order name: XRAY Chest (1 view); Complete Time: 14:21 kb 07/08 17:44 Order name: Thorax Wo Con; Complete Time: 18:15 EDMS 07/08 14:06 Order name: Cardiac monitoring; Complete Time: 14:27 kb 07/08 14:06 Order name: EKG - Nurse/Tech; Complete Time: 14:27 kb 07/08 14:06 Order name: IV Saline Lock; Complete Time: 14:14 kb 07/08 14:06 Order name: Labs collected and sent; Complete Time: 14:14 kb 07/08 14:06 Order name: O2 Per Protocol; Complete Time: 14:14 kb 07/08 14:06 Order name: O2 Sat Monitoring; Complete Time: 14:14 kb 07/08 14:16 Order name: Misc. Order: obtain home med list from [employer] please; Complete kb Time: 15:32 07/08 14:30 Order name: Labs - recollect needed: recollect green top please; Complete Time: 14:36 em1 EC: Rate is 81 beats/min. Rhythm is regular. QRS [place] is Normal. MI interval is normal at kb 152 msec. QRS interval is normal at 74 msec. QT interval is normal at 427 msec. Administered Medications: 14:26 Drug: Aspirin PO Chewable Tablet 324 mg PO once; 81 mg tablets x 4 Route: PO; me1 15:49 Drug: morphine IVP or IV 2 mg IVP once over 4 mins Route: IVP; Infused Over: 4 mins; me1 Site: right antecubital; 16:04 Follow up: Response: No adverse reaction; Pain is decreased me1 15:49 Drug: Ondansetron IVP 4 mg IVP once; over 2 minutes Route: IVP; Site: right antecubital;me1 16:04 Follow up: Response: No adverse reaction; Nausea is decreased me1 15:49 Drug: NS 0.9% IV 500 ml 500 ml IV at 1 bolus once; to be given as a bolus over 30 me1 minutes Volume: 500 ml; Route: IV; Rate: 1 bolus; Site: right antecubital; 16:10 Follow up: Response: No adverse reaction; IV Status: Completed infusion; IV Intake: me1 500ml 16:10 Drug: Lisinopril PO 20 mg PO once Route: PO; me1 18:43 Follow up: Response: No adverse reaction; Blood pressure is lowered me1 Disposition Summary: 07/08/25 15:25 Hospitalization Ordered Notes: Hospitalization Status: Observation kb Provider: Tiara White Location: Telemetry/MedSurg (observation) kb Condition: Stable kb Problem: new kb Symptoms: are unchanged kb Bed/Room Type: Standard Room Assignment: 430(07/08/25 17:33) em1 Diagnosis - Chest pain, unspecified kb Forms: - Medication Reconciliation Form kb - SBAR form kb - Leadership Thank You Letter Signatures: Dispatcher [employer] Esperanza Gillespie FNP-C FNP-Dean Weiss em1 Vernon Pop, RN RN bp Georgette Orozco, KASH RN me1 Corrections: (The following items were deleted from the chart) 14:07 14:07 BASIC METABOLIC PANEL+C.LAB.BRZ ordered. EDNE EDMS 14:07 14:07 CBC+H.LAB.BRZ ordered. EDMS EDMS 14:07 14:07 MAGNESIUM+C.LAB.BRZ ordered. EDMS EDMS 14: 14:07 PROBNP+C.LAB.BRZ ordered. EDMS EDMS 14: 14:07 Troponin High Sensitivity+C.LAB.BRZ ordered. EDMS EDMS 14: 14:07 Chest Single View+RAD.RAD.BRZ ordered. EDMS EDMS 14: 14:08 ED course: Patient is a 69-year-old female who presents for chest pain and kb weakness for 3 days. Will obtain CBC, BMP, BNP, EKG, chest x-ray for evaluation. Patient is hypertensive at this time but reports blood pressure of 124 systolic this morning. Will monitor blood pressure and treat as needed. Plan is to admit patient after initial evaluation and diagnostics.. kb 14:23 14:06 Constitutional: This is a well developed, well nourished patient who is awake, kb alert, and in no acute distress. Head/Face: Normocephalic, atraumatic. ENT: Moist Mucous membranes Cardiovascular: Regular rate Respiratory: Respirations even and unlabored. No increased work of breathing. Talking in full sentences Skin: Warm, dry with normal turgor. Normal color. MS/ Extremity: Pulses equal, no cyanosis. Neurovascular intact. Full, normal range of motion. Neuro: Awake and alert, GCS 15, oriented to person, place, time, and situation. kb 14:24 14:07 Patient is a 69-year-old female who presents for 3-day history of substernal kb chest pain. Denies shortness of breath, nausea, vomiting. Reports generalized weakness as well. Patient had a carotid enterectomy in October 2024 and a CABG in January 2025. . kb 17:33 15:25 kb em1
[2025-07-08] MEDS ORDERED: MORPHINE 2 MG/ML SYR ONE (15:44)
[2025-07-08] MEDS ORDERED: ONDANSETRON 4 MG/2 ML VIAL ONE (15:45)
[2025-07-08] MEDS ORDERED: NA CHLORIDE 0.9% 500 ML ONE (15:45)
--- NOTE | 2025-07-08 17:07 | P.CNS ---
Date of Consult: 07/08/25 Chief Complaint: chest pain History of Present Illness: Patient with PMH of CAD s/p CABG that was done at [facility] back on 01/2025, not sure of how many bypasses, history of left carotid endarterectomy, presented with chest pain that has been going on for the last few days, mid chest, no radiation, also report generalized weakness, no palpitations, no syncope. Allergies No Known Allergies Allergy (Verified 05/25/25 10:16) Home medications list reviewed: Yes Home Medications: Benzonatate [Tessalon Perle*] 100 mg PO Q8H PRN 05/13/19 Glimepiride 4 mg PO BID 05/13/19 Ibuprofen 800 mg PO Q8H PRN 05/13/19 Metformin HCl [Glucophage*] 500 mg PO BID 05/13/19 Pioglitazone [Actos] 30 mg PO DAILY 05/13/19 Ciprofloxacin HCl 500 mg PO BID 5 Days #10 tablet 05/15/19 lisinopriL [Prinivil*] 2.5 mg PO DAILY #15 tab 05/15/19 - Past Medical/Surgical History Diabetic: Yes -: DM-2;diagnosed 1 week ago -: hypertension -: high cholesterol -: Cholecystectomy -: Hysterectomy - Family History Sister Medical History: Diabetes, Other (see notes) Notes: dialysis - Social History Alcohol use: No CD- Drugs: No Caffeine use: Yes Review of Systems 10-point ROS is otherwise unremarkable Physical Examination General: Alert, In no apparent distress HEENT: Atraumatic, PERRLA, Mucous membr. moist/pink, EOMI, Sclerae nonicteric Neck: Supple, 2+ carotid pulse no bruit, No LAD, Without JVD or thyroid abnormality Respiratory: Clear to auscultation bilaterally, Normal air movement Cardiovascular: Regular rate/rhythm, Normal S1 S2 Gastrointestinal: Normal bowel sounds, No tenderness Musculoskeletal: No tenderness Integumentary: No rashes Neurological: Normal gait, Normal speech, Normal tone, Normal affect Lymphatics: No axilla or inguinal lymphadenopathy Laboratory Data (last 24 hrs) 07/08/25 07/08/25 14:34 14:13 WBC 9.30 Hgb 10.2 L Hct 29.4 L Plt Count 232 Sodium 135 L Potassium 4.3 BUN 34 H Creatinine 1.27 H Glucose 324 H Magnesium 1.7 - Problems (1) CAD (coronary artery disease) of artery bypass graft Current Visit: Yes Status: Acute Plan: patient chest pain is atypical as it is reproducible on exam first set of troponin is negative continue to trend troponin for 3 sets, if all negative then patient can follow up with cardiology as outpatient for further testing ASA 81 mg daily Lipitor 40 mg daily (2) HTN (hypertension) Current Visit: Yes Status: Acute Plan: patient BP is high Coreg 12.5 mg po BID (First dose now). Lisinopril 10 mg daily (first dose now). PRN IV Hydralazine (3) Elevated brain natriuretic peptide (BNP) level Current Visit: Yes Status: Acute Plan: lasix 20 mg IV BID Continue to monitor input and output and electrolytes.
[2025-07-08] MEDS ORDERED: MORPHINE 4 MG/ML SYR IV PRN (17:20)
[2025-07-08] MEDS ORDERED: ACETAMINOPHEN 500 MG TAB PO PRN (17:20)
[2025-07-08] MEDS ORDERED: GLUCAGON 1 MG/VIAL IM PRN (17:24)
[2025-07-08] MEDS ORDERED: D10W 125 ML IV PRN (17:24)
--- NOTE | 2025-07-08 17:32 | P.HP ---
Certification for Inpatient Patient admitted to: Observation With expected LOS: <2 Midnights Practitioner: I am a practitioner with admitting privileges, knowledge of patient current condition, hospital course, and medical plan of care. Services: Services provided to patient in accordance with Admission requirements found in Title 42 Section 412.3 of the Code of Federal Regulations Patient History Date of Service: 07/08/25 Reason for admission: chest pain History of Present Illness: 69-year-old woman with a history of coronary to disease, status post CABG for three-vessel disease in January 2025, history of peripheral vascular disease, history of carotid artery disease with left carotid endarterectomy presented to the emergency with a complaint of chest pain and generalized weakness of about 3 days duration. Patient denied any shortness of breath. Daughter reported patient chest pain is located in her CABG scar on her mid chest. Patient states that she is not taking any medications for heart disease. Patient evaluated in the ED, BP noted to be severely elevated with systolic up to 200, initial troponin negative. EKG showed no acute ischemia. Patient is hospitalized for ACS rule out. Allergies No Known Allergies Allergy (Verified 05/25/25 10:16) Home Medications: Benzonatate [Tessalon Perle*] 100 mg PO Q8H PRN 05/13/19 Glimepiride 4 mg PO BID 05/13/19 Ibuprofen 800 mg PO Q8H PRN 05/13/19 Metformin HCl [Glucophage*] 500 mg PO BID 05/13/19 Pioglitazone [Actos] 30 mg PO DAILY 05/13/19 Ciprofloxacin HCl 500 mg PO BID 5 Days #10 tablet 05/15/19 lisinopriL [Prinivil*] 2.5 mg PO DAILY #15 tab 05/15/19 - Past Medical/Surgical History Diabetic: Yes -: DM-2;diagnosed 1 week ago -: hypertension -: high cholesterol -: Cholecystectomy -: Hysterectomy - Family History Sister -: Diabetes, Other (see notes) Notes: dialysis - Social History Alcohol use: No CD- Drugs: No Caffeine use: Yes Review of Systems Other: Patient denied any shortness of breath. She denied any fever or chills. She denied any nausea vomiting or diarrhea. She denied any cough or orthopnea. Except as documented, all other systems reviewed and negative. Physical Examination - Physical Exam General: Alert, In no apparent distress, Oriented x3 HEENT: Normocephalic, Mucous membr. moist/pink, EOMI, Sclerae nonicteric Neck: Supple, JVD not distended Respiratory: Clear to auscultation bilaterally, Normal air movement Cardiovascular: No edema, Regular rate/rhythm, Normal S1 S2, No murmurs Capillary refill: <2 Seconds Gastrointestinal: Normal bowel sounds, Soft and benign, Non-distended, No tenderness Musculoskeletal: No swelling, No tenderness Integumentary: No rashes, No cyanosis Neurological: Normal speech, Normal strength at 5/5 x4 extr, Cranial nerves 3-12 intact Lymphatics: No axilla or inguinal lymphadenopathy - Studies Laboratory Data (last 24 hrs) 07/08/25 07/08/25 14:34 14:13 WBC 9.30 Hgb 10.2 L Hct 29.4 L Plt Count 232 Sodium 135 L Potassium 4.3 BUN 34 H Creatinine 1.27 H Glucose 324 H Magnesium 1.7 Assessment and Plan - Problems (Diagnosis) (1) Chest pain Current Visit: Yes Status: Acute (2) HTN (hypertension) Current Visit: Yes Status: Acute (3) Diabetes mellitus Onset Date: 09/25/16 Current Visit: No Status: Acute Qualifiers: Diabetes mellitus type: type 2 Diabetes mellitus 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 Place patient under observation. Patient seen and evaluated by cardiology Dr. Jacob Will trend troponin per Dr. Jacob recommendation. Start Coreg 12.5 mg twice daily Hydralazine IV as needed for BP spikes. Patient started on aspirin, Lipitor. Trial of IV Lasix for fatigue. Insulin sliding scale for glucose management Check lipid profile, check hemoglobin A1c Obtain CT chest to evaluate sternotomy wires. Monitor renal function. DVT prophylaxis: Lovenox Advanced directive: full code - Advance Directives Does patient have a Living Will: No Does patient have a Durable POA for Healthcare: No
--- NOTE | 2025-07-08 18:13 | RAD REPORT ---
EXAMINATION: CT CHEST WITHOUT CONTRAST CLINICAL INDICATION: Chest pain TECHNIQUE: Routine CT scan of the chest without intravenous contrast. One or more of the following do se reduction techniques were used: Automated exposure control, adjustment of the mA and/or kV according to patient size, and/or iterative reconstruction. Unless otherwise specified, incidental fi ndings do not require dedicated imaging follow-up. COMPARISON: No prior exam. FINDINGS: LOWER NECK: Visualized thyroid gland and soft tissues are normal. LUNGS: The lungs are clear. No evidence of airspace or interstitial process. No worrisome nodules. PLEURA: No pleural effusion. No pneumothorax. . MEDIASTINUM AND LYMPH NODES: No mediastinal mass or fluid collection. Normal size mediastinal, hilar, and axillary lymph nodes. OSSEOUS STRUCTURES AND CHEST WALL: Intact. Sternotomy wires. UPPER ABDOMEN: No significant abnormalities. IMPRESSION: No acute or concerning intrathoracic findings. Examination limited by lack of IV contrast.
[2025-07-08] MEDS: ATORVASTATIN 40 MG TAB PO SCH (20:15)
[2025-07-08] MEDS: INSULIN REGULAR (HUMAN) 100 UNIT/ML SQ SCH (20:16)
[2025-07-08 21:42] VITALS: O2SAT 98; BMI 19.3
[2025-07-09 04:43] LABS: Absolute Lymphocytes (CBC) 1.7 K/uL (0.7-4.9); Hematocrit 26.8 % (36.0-45.0); Hemoglobin 9.5 g/dL (12.0-15.0); MCH 30.5 pg (27.0-35.0); MCHC 35.4 g/dL (32.0-36.0); MCV 86.2 fL (80-100); MPV 8.1 fL (7.6-11.3); Nucleated RBC Absolute Count 0.0 (0-0); Nucleated Red Blood Cells % 0.0 % (0-0); RBC Red Blood Cell Count 3.11 M/uL (3.86-4.86); White Blood Count 7.10 thou/uL (4.3-10.9)
[2025-07-09 05:09] LABS: Anion Gap 7.5 mEq/L (5.0-15.0); BUN Blood Urea Nitrogen 35 mg/dL (7-18); Glucose Level 186 mg/dL (74-106); HDL Cholesterol 39 mg/dL (40-60); Potassium 4.5 mEq/L (3.5-5.1)
[2025-07-09] MEDS: ENOXAPARIN 30 MG/0.3 ML SQ SCH (08:37)
[2025-07-09] MEDS: ASPIRIN EC 81 MG TAB PO SCH (08:37)
[2025-07-09] MEDS: FUROSEMIDE 40 MG/4 ML VIAL IV SCH (08:38)
[2025-07-09] MEDS ORDERED: ASPIRIN EC 81 MG TAB PO SCH (09:00)
[2025-07-09 09:58] VITALS: BP 115/47; TEMP 98.1
--- NOTE | 2025-07-09 12:41 | P.DS ---
Admission Date: 07/08/25 Discharge Date: 07/09/25 Disposition: DC HOME/HOME HEALTH CARE Discharge Condition: GOOD Reason for Admission: chest pain - Problems (1) Chest pain Status: Acute (2) HTN (hypertension) Status: Acute (3) Diabetes mellitus Onset Date: 09/25/16 Status: Acute Qualifiers: Diabetes mellitus type: type 2 Diabetes mellitus termite helper insulin use: without termite helper use Diabetes mellitus complication status: without complication Qualified Code(s): E11.9 - Type 2 diabetes mellitus without complications (4) History of coronary artery bypass graft Status: Acute (5) Hypertensive urgency Status: Acute (6) Chronic kidney disease, stage III (moderate) Status: Acute (7) Hypertriglyceridemia Status: Acute Brief History of Present Illness: 69-year-old woman with a history of coronary to disease, status post CABG for three-vessel disease in January 2025, history of peripheral vascular disease, history of carotid artery disease with left carotid endarterectomy presented to the emergency with a complaint of chest pain and generalized weakness of about 3 days duration. Patient denied any shortness of breath. Daughter reported patient chest pain is located in her CABG scar on her mid chest. Patient states that she is not taking any medications for heart disease. Patient evaluated in the ED, BP noted to be severely elevated with systolic up to 200, initial troponin negative. EKG showed no acute ischemia. Patient was hospitalized for ACS rule out. Hospital Course: Patient placed under observation on the medical floor. Patient seen and evaluated by cardiology Dr. Jacob and she was placed on Coreg for severe hypertension. Her blood pressure improved with coreg. Troponin trended negative. Patient chest pain likely musculoskeletal, reproducible by palpation and located in the CABG surgical scar. CT chest done to evaluate for musculoskeletal chest pain is unremarkable. ACS ruled out, blood pressure improved. Patient is discharged with refill for her prescriptions Her lipid profile showed significant elevated triglyceride. Patient Home Crestor continued on discharge and Tricor added for hypertriglyceridemia. Vital Signs/Physical Exam: Temp Pulse Resp BP Pulse Ox 98.1 F 62 15 115/47 L 100 07/09/25 08:00 07/09/25 08:00 07/09/25 08:00 07/09/25 08:00 07/09/25 08:00 General: Alert, In no apparent distress, Oriented x3 HEENT: Mucous membr. moist/pink, Sclerae nonicteric Neck: Supple, JVD not distended Respiratory: Clear to auscultation bilaterally, Normal air movement Cardiovascular: No edema, Regular rate/rhythm, Normal S1 S2 Gastrointestinal: Normal bowel sounds, Soft and benign, Non-distended Musculoskeletal: No swelling Integumentary: No rashes, No cyanosis Neurological: Normal strength at 5/5 x4 extr Laboratory Data at Discharge: WBC 7.10 thou/uL (4.3-10.9) 07/09/25 04:22 Hgb 9.5 g/dL (12.0-15.0) L 07/09/25 04:22 Hct 26.8 % (36.0-45.0) L 07/09/25 04:22 Plt Count 195 thou/uL (152-406) 07/09/25 04:22 Sodium 140 mEq/L (136-145) D 07/09/25 04:22 Potassium 4.5 mEq/L (3.5-5.1) 07/09/25 04:22 BUN 35 mg/dL (7-18) H 07/09/25 04:22 Creatinine 1.35 mg/dL (0.55-1.02) H 07/09/25 04:22 Glucose 186 mg/dL (74-106) H 07/09/25 04:22 Magnesium 1.7 mg/dL (1.6-2.4) 07/08/25 14:34 Triglycerides 499 mg/dL (<150) H 07/09/25 04:22 Cholesterol 212 mg/dL (<200) H 07/09/25 04:22 LDL Cholesterol Direct 98 mg/dL (100-129) L 07/09/25 04:22 HDL Cholesterol 39 mg/dL (40-60) L 07/09/25 04:22 Cholesterol/HDL Ratio 5.44 07/09/25 04:22 Home Medications: Glimepiride 4 mg PO BID 05/13/19 Aspirin 81 mg PO DAILY #30 tab 07/09/25 Fenofibrate [Tricor] 145 mg PO DAILY #30 tab 07/09/25 Metoprolol Tartrate 25 mg PO BID #30 tab 07/09/25 Rosuvastatin Calcium 20 mg PO DAILY #30 tab 07/09/25 New Medications: Aspirin 81 mg PO DAILY #30 tab Metoprolol Tartrate 25 mg PO BID #30 tab Rosuvastatin Calcium 20 mg PO DAILY #30 tab Fenofibrate [Tricor] 145 mg PO DAILY #30 tab Followup: Leydi Coronado MD [Primary Care Provider] - Time spent managing pt's care (in minutes): 31
== END 2025-07-09 11:30 | disposition home health service (06) ==
LOC: ER 13:59 → 4TH 17:19
PROVIDERS: ADMIT Internal Medicine; ATTEND Internal Medicine
DX: R07.89 Other chest pain (principal); I25.10 Atherosclerotic heart disease of native coronary artery without angina pectoris; E78.1 Pure hyperglyceridemia; R79.89 Other specified abnormal findings of blood chemistry; I73.9 Peripheral vascular disease, unspecified; R53.1 Weakness; I16.0 Hypertensive urgency; E11.22 Type 2 diabetes mellitus with diabetic chronic kidney disease; I12.9 Hypertensive chronic kidney disease with stage 1 through stage 4 chronic kidney disease, or unspecified chronic kidney disease; N18.30 Chronic kidney disease, stage 3 unspecified; Z95.1 Presence of aortocoronary bypass graft
CPT/HCPCS: 93005; 85025 ×2; 80048 ×2; 36415; 83721; 83735; 80061; 82947 ×2; 83036; 84484 ×2; 83880; 71250; 71045; 96375; 96374; 99285; J1938; J1650; J2270; J2405; J7040; G0378 ×3